=== PATIENT | male | born 1955 | race Caucasian/White ===

== ENCOUNTER 2021-02-14 08:59 | Outpatient (CLI) | payer MEDICARE, OTHER, SELFPAY ==
--- NOTE | ~2021-02-14 | NM_ITS ---
EXAMINATION: NM bone scan whole body DATE: 02/14/2021 13:02 INDICATION: Prostate cancer TECHNIQUE: 25.4 mCi Tc-99m HDP was administered intravenously. Delayed whole-body scintigrams were o btained. COMPARISON: 10/14/2017 FINDINGS: Single focus of relatively intense uptake at the anterior tip of the left sixth rib. Otherwise physio logic distribution of activity in the bones and soft tissues. IMPRESSION: 1. Single focus of relatively intense uptake at the anterior tip of the left sixth rib which is nonsp ecific. Recommend further evaluation with either left rib radiographs or chest CT. Reviewed, dictated and finalized at location A. IMPRESSION: 1. Single focus of relatively intense uptake at the anterior tip of the left si xth rib which is nonspecific. Recommend further evaluation with either left rib radiographs or chest CT.
--- NOTE | ~2021-02-14 | CT_ITS ---
EXAMINATION: CT pelvis w con DATE: 02/14/2021 09:37 INDICATION: Prostate cancer. TECHNIQUE: Computed tomography (CT) of the pelvis was performed with 100 mL Omnipaque 350 intravenous contrast. Automated exposure control and iterative reconstruction technique were employed. The dose- length product was 180.55 mGy-cm. COMPARISON: CT abdomen and pelvis 03/05/2018 FINDINGS: There are no dilated loops of bowel. The prostate is absent. There are no pathologically en larged lymph nodes. There is no free intraperitoneal fluid. There is sclerosis in the femoral heads, right worse than left, consistent with osteonecrosis. There is severe lower lumbar spondylosis. There is a benign bone island in left superior pubic ramus. IMPRESSION: 1. No evidence of metastatic disease. Reviewed, dictated and finalized at location B.
[2021-02-14 09:29] LABS: Estimated Glomerular Filt Rate > 60
== END 2021-02-14 09:00 | disposition home or self-care (01) ==
LOC: ANHIMG 09:08
PROVIDERS: PCP Internal Medicine; Visit Provider Urology
DX: C61 Malignant neoplasm of prostate (principal)
CPT/HCPCS: 72193; 78306; A9561; Q9967

== ENCOUNTER 2021-06-03 14:47 | Outpatient (CLI) | payer MEDICARE, OTHER, SELFPAY ==
[2021-06-03] MEDS: cefTRIAXone 1 GM VIAL IM (15:42)
[2021-06-03] MEDS: LIDOCAINE HCL 1% LOCAL INJ 20 ML VIAL (15:43)
--- NOTE | 2021-06-03 15:53 | PC.NURSE ---
Rocephin 1 gram IM given. Patient tolerated well.
== END 2021-06-03 14:48 | disposition home or self-care (01) ==
LOC: CHSTREATRM 14:58
PROVIDERS: PCP Internal Medicine; Visit Provider Internal Medicine
DX: L03.115 Cellulitis of right lower limb (principal)
CPT/HCPCS: 96372; J0696

== ENCOUNTER 2021-06-04 15:04 | Outpatient (CLI) | payer MEDICARE, OTHER, SELFPAY ==
[2021-06-04] MEDS: LIDOCAINE HCL 1% LOCAL INJ 20 ML VIAL INFILTRATE (15:32)
[2021-06-04] MEDS: cefTRIAXone 1 GM VIAL IM (15:33)
--- NOTE | 2021-06-04 15:35 | PC.NURSE ---
Patient here for Ceftriaxone injection. Medication administered to left buttocks. Patient tolerated well.
== END 2021-06-04 15:05 | disposition home or self-care (01) ==
PROVIDERS: PCP Internal Medicine; Visit Provider Internal Medicine
DX: L03.115 Cellulitis of right lower limb (principal)
CPT/HCPCS: 96372; J0696

== ENCOUNTER 2021-12-24 17:55 | Emergency (ER) | payer MEDICARE, OTHER, SELFPAY ==
--- NOTE | ~2021-12-24 | XR_ITS ---
EXAMINATION: XR shoulder LT min 2V DATE: 12/24/2021 18:40 INDICATION: Left shoulder injury. TECHNIQUE: 4 views of left shoulder were obtained. COMPARISON: None. FINDINGS: There is normal alignment at glenohumeral joint. There is a fracture involving greater tube rosity and surgical neck of proximal left humerus with 3 mm displacement. Glenohumeral joint is terence l. There is severe acromioclavicular joint osteoarthritis. There are changes of anterior fusion proce dure in cervical spine. There is mild chronic anterior wedging of multiple thoracic vertebral bodies. IMPRESSION: 1. One-part fracture of proximal left humerus. 2. Severe osteoarthritis of acromioclavicular joint. Reviewed, dictated and finalized at location E.
--- NOTE | 2021-12-24 18:01 | ED.UPPEXIN ---
HPI - Extremity Injury (Upper) General Chief Complaint: Extremity Injury, Upper Stated Complaint: L arm fall Time Seen by Provider: 12/24/21 18:02 Source: patient Mode of arrival: ambulatory Limitations: no limitations History of Present Illness HPI narrative: patient was on a shed roof and was about to lower himself down he swung his body over the edge of the roof and then lost control falling about 6-7 feet onto his left side. He thought at 1st his knee was hurt but he is walking on it he says it feels fine. Problem is left shoulder is very painful. He denies hitting his head he denies any loss of consciousness. complaint: injury to: left and shoulder Onset (ago): hour(s) (2.5) Other injuries: none Handedness: right Place: home Severity: severe Relieving factors: rest Exacerbating factors: movement of extremity Context: fall Associated symptoms: denies other symptoms Related Data Home Medications Medication Instructions Recorded Confirmed amlodipine 10 mg PO DAILY 12/24/21 12/24/21 cyproheptadine 4 mg PO DAILY 12/24/21 12/24/21 ergocalciferol (vitamin D2) 1,250 mcg PO DAILY 12/24/21 12/24/21 famotidine 40 mg PO DAILY 12/24/21 12/24/21 hydrocodone-acetaminophen 1 tablet PO Q4-6H 12/24/21 12/24/21 leuprolide [Lupron Depot] See Rx Instructions .ROUTE .COMPLEX 12/24/21 12/24/21 Allergies Allergy/AdvReac Type Severity Reaction Status Date / Time codeine Allergy Mild CONSTIPATIO Verified 12/24/21 18:23 N PROPOXYPHENE NAPSYLATE Allergy Severe N/V Uncoded 12/24/21 18:23 MEPERIDINE HCL AdvReac Severe N/V Uncoded 12/24/21 18:23 Review of Systems Review of Systems: All systems reviewed & are unremarkable except as noted in HPI and below Gastrointestinal: Gastrointestinal: Reports nausea PMFSH Past Medical History Medical History (Updated 12/24/21 @ 19:09 by Gaurav Whitt MD) Colles' fracture of left radius, initial encounter for closed fracture Family History Family History Other Family history of cardiovascular disease Family history of malignant neoplasm Hypertension Social History Social History Smoking status: Never smoker Alcohol intake: current Exam Const: General: healthy appearing, no acute distress and alert Nutritional Appearance: well nourished Orientation/consciousness: patient oriented x3 HENMT: Head: normal to inspection Ears: external ears normal Eyes: Conjunctivae: conjunctivae normal Pupils: Equal, round and reactive pupils present EOM: EOMs intact bilaterally Neck: Neck: normal visual inspection Resp: Effort & Inspection: normal respiratory effort Auscultation: clear to auscultation bilaterally Cardio: Rate: regular rate Rhythm: regular rhythm GI: GI Palp: Yes Soft to palpation, No Tenderness to palpation present (GI) and No Guarding due to palpation present (GI) Auscultation: normal bowel sounds Back/Spine/Pelvis: Cervical Spine: cervical ROM normal Thoracic/Lumbar Spine: thoraco-lumbar ROM normal Skin: General skin exam: normal color Rashes: no rashes Neuro: General: patient oriented x3, moves all extremities, no focal motor deficits and CN's II-XI intact bilaterally Speech: normal speech Gait exam (Neuro): Normal gait present Extrem: General: normal exam except as noted and no clubbing, cyanosis or edema Left upper extremity: shoulder/upper arm tenderness of the proximal humerus, swelling of the proximal humerus anteriorly, posteriorly, laterally and medially and abnormal ROM held in an abnormal fashion in ABduction and in internal rotation Psych: Appearance: grossly normal and well kempt Mental Status: mental status grossly normal Affect: normal affect Attitude: cooperative Thought content: Yes Normal thought content present Discharge Plan Discharge Clinical Impression: Fracture of humerus Qualifiers: Encounter type: initial encounter Hu
[2021-12-24 18:14] VITALS: BP 179/86; PULSE 70; RESP 20; TEMP 37.3; O2SAT 99
[2021-12-24] MEDS: HYDROmorphone HCL INJ (*CRX) 2 MG/ML VIAL 1 MG IM (19:06)
[2021-12-24] MEDS: ONDANSETRON HCL ODT 4 MG TABLET PO (19:06)
[2021-12-24 19:23] VITALS: BP 179/86; PULSE 88; RESP 16; TEMP 36.6; O2SAT 99
== END 2021-12-24 19:23 | disposition home or self-care (01) ==
PROVIDERS: Emergency Provider Emergency Medicine; PCP Internal Medicine
DX: S42.295A Other nondisplaced fracture of upper end of left humerus, initial encounter for closed fracture (principal); W17.89XA Other fall from one level to another, initial encounter
CPT/HCPCS: 73030; 96372; 99284; A4565; A9270; J1170

== ENCOUNTER 2022-01-22 15:01 | Outpatient (RCR) | payer MEDICARE, OTHER, SELFPAY ==
--- NOTE | 2022-01-22 15:31 | PTOPEVAL ---
Thank you for referring Mayank Collazo to [facility].? The patient is scheduled to be seen for therapy? __2__x/week for 12 visits. Please review, sign, date and return this plan of care BEATRIZ. I agree with and certify that the following plan of care is medically necessary. Referring Physician Date Admitting Provider: Attending Provider: GEETHA PRATT Referring Provider: *PT Outpatient Evaluation Start: 01/22/22 15:07 Freq: Status: Active Protocol: Document 01/22/22 15:07 ABIOLA (Rec: 01/22/22 15:28 [email or web address] [id number]) Therapy Assessment Status Assessment Status Assessment Status Evaluation Outpatient Past Medical History Cardiovascular History Hx Hypertension Yes Gastrointestinal History Hx Gastroesophageal Reflux Disease Yes Other History Hx Cancer Yes: PROSTATE Evaluation Information Problem Diagnosis left proximal humerus fx Onset 12/24/21 Subjective Information Pt. reports that he fell at Query Text:As Reported By Patient/ the beginning of December. Pt. Family reports that he has been in a sling since the fall. He reports that his doctor informed him that he could begin to take his arm out of the sling next Saturday. He reports that pain is mild at rest but increases significantly with movement. He reports that he has been doing described pendulum exercises at home. He reports that he has trouble sleeping due to pain with moving the arm. He reports that his goal is to decrease his pain. Prior Level of Function Activity Level (Last 3 Months) Occupation retired Hand Dominance Right Activity of Daily Living Ability Independent Indoor/Home Mobility Independent Community Mobility Independent Stairs Ability Independent Functional Cognition (Planning, Shopping Independent , Taking Medications) Cooking Yes Cleaning Yes Laundry Yes Shopping Yes Driving Yes Pain Assessment Timing of Pain Assessment Timing of Pain Assessment Post-Treatment Pain Scale Pain Scale Used Numeric (1 - 10) Self Report Pain Assessment Left Shoulder(s) Reported Pain Level 2 Pain Frequency
--- NOTE | 2022-02-28 15:23 | PTOPEVAL ---
Thank you for referring Mayank Collazo to [facility].? The patient is scheduled to be seen for therapy? __1__x/week for __6_ visits. Please review, sign, date and return this plan of care BEATRIZ. I agree with and certify that the following plan of care is medically necessary. Referring Physician Date Admitting Provider: Attending Provider: GEETHA PRATT Referring Provider: *PT Outpatient Evaluation Start: 01/22/22 15:07 Freq: Status: Active Protocol: Document 02/28/22 14:22 ABIOLA (Rec: 02/28/22 15:22 ABIOLA [id number]) Therapy Assessment Status Assessment Status Assessment Status Progress Outpatient Past Medical History Cardiovascular History Hx Hypertension Yes Gastrointestinal History Hx Gastroesophageal Reflux Disease Yes Other History Hx Cancer Yes: PROSTATE Evaluation Information Problem Diagnosis left proximal humerus fx Onset 12/24/21 Subjective Information Pt. reports that he is doing Query Text:As Reported By Patient/ better, but is still very weak Family , espeically with overhead reaching. He reports that he is still limited to 5# restriction from his doctor. He states that he cannot lift anything of significant weight with the rleft arm. He reports that he would like to continue in order to improve strength. Pain Assessment Timing of Pain Assessment Timing of Pain Assessment Pre-Treatment Pain Scale Pain Scale Used Numeric (1 - 10) Self Report Pain Assessment Left Shoulder(s) Reported Pain Level 2 Pain Score Pain Score 2: Self Report Interventions Used Interventions Used By Clinicians Electrical Stimulation, Exercise,Heat,Manual Therapy Techniques Upper Extremity Range of Motion General Upper Extremity Range of Motion Gross Upper Extremity Range of Motion PROM at the left shoulder: Comments -flexion 140 degrees -ER 65 degrees -IR 40 degrees AROM at the left shoulder: -flexion 94 degrees Upper Extremity Muscle Strength Testing General Upper Extremity Strength Gross Upper Extremity Strength Comments -left shoulder flexion 3/5 -left shoulder ER 3+/5 -left shoulder IR 3+/5 General Exercise General Exercises Exercise Description -finger ladder flexion and Query Text:Record Sets, Reps, abdu
== END 2022-04-17 18:43 | disposition home or self-care (01) ==
LOC: CHSPT 15:01
PROVIDERS: PCP Internal Medicine
DX: S42.295D Other nondisplaced fracture of upper end of left humerus, subsequent encounter for fracture with routine healing (principal)
CPT/HCPCS: 97014; 97110; 97140; 97161; G0283

== ENCOUNTER 2022-11-01 01:30 | Day surgery (SDC) | payer MEDICARE, OTHER, SELFPAY ==
[2022-10-18 14:53] VITALS: BMI 23.1
[2022-11-01 06:50] VITALS: BP 159/73; PULSE 71; RESP 16; TEMP 36.4; O2SAT 100; BMI 22.5
[2022-11-01] MEDS: LACTATED RINGERS 1,000 ML 150 ML IV CONT (06:58)
--- NOTE | 2022-11-01 07:42 | WPDANESEPPF ---
Anes - Initial Pre Proc Eval Procedure: Operation Date: 11/01/22 08:00 Proposed Procedures p Screening Colonoscopy - Franc Don DO Date/Time: 11/01/22 07:42 Surgeon: Franc Don DO Pre Op Diagnosis: hx colon polyps Patient Data Age: 67 Gender: M Height: 1.83 m Weight: 75.3 kg Last Vital Signs Temp 36.4 C 11/01/22 06:50 Pulse 71 11/01/22 06:50 Resp 16 11/01/22 06:50 BP 159/73 H 11/01/22 06:50 Pulse Ox 100 11/01/22 06:50 O2 Del Method Room Air 11/01/22 06:50 Allergies Allergy/AdvReac Type Severity Reaction Status Date / Time codeine Allergy Mild CONSTIPATIO Verified 11/01/22 06:48 N propoxyphene Allergy Nausea and Verified 11/01/22 06:48 Vomiting meperidine AdvReac Nausea and Verified 11/01/22 06:48 Vomiting Home Medications Medication Instructions Recorded Confirmed Type amlodipine 10 mg tablet 10 mg PO DAILY 12/24/21 11/01/22 History ergocalciferol (vitamin D2) 1,250 1,250 mcg PO DAILY 12/24/21 11/01/22 History mcg (50,000 unit) capsule famotidine 40 mg tablet 40 mg PO BID 12/24/21 11/01/22 History hydrocodone 7.5 mg-acetaminophen 1 tablet PO Q4-6H PRN Pain 12/24/21 11/01/22 History 325 mg tablet leuprolide 3.75 mg intramuscular See Rx Instructions .Route .COMPLEX 12/24/21 11/01/22 History darolutamide 300 mg tablet (Nubeqa) 600 mg PO BID 10/18/22 11/01/22 History pantoprazole 40 mg tablet,delayed 40 mg PO BID 10/18/22 11/01/22 History release prochlorperazine maleate 10 mg 10 mg PO Q6H PRN Nausea 10/18/22 11/01/22 History tablet Patient hx anesthesia problems: post op nausea/vomiting Family hx anesthesia problems: other (slow to awaken) Results Review: All pre-operative results and documents have been reviewed as part of the pre-operative evaluation. [facility] Past Medical History Medical History Colles' fracture of left radius, initial encounter for closed fracture Family History Family History Other Family history of cardiovascular disease Family history of malignant neoplasm Hypertension Social History Social History Smoking status: Never smoker Alcohol intake: current Substance use: current Substance use type: marijuana Other substance usage details: Daily Living arrangements: with family Spiritual care concerns: No Anes - Eval Final PreProcedure Day of Procedure 11/01/22 07:42 Patient weight: normal Heart: regular rate and rhythm Lungs: decreased breath sounds Airway: Mallampati scale class II Neurological: alert and oriented Last oral intake: >/= 8 hours ASA classification: III Emergent: no Anesthetic plan: proceed Anesthesia type and monitoring: general GIVS and standard monitoring Results Review: All pre-operative results and documents have been reviewed as part of the pre-operative evaluation. Informed Consent: The patient's anesthetic plan and its attendant risks and benefits were discussed with the patient/family/POA. Questions were solicited and answers provided to the satisfaction of the patient/family/POA.
[2022-11-01] MEDS: ONDANSETRON INJ 4 MG/2 ML VIAL IV PUSH (07:44)
--- NOTE | 2022-11-01 08:10 | PM.IMHP ---
H&P: HPI History of Present Illness Date/Time: 11/01/22 08:10 Chief Complaint: History of colon polyps Narrative: this is a 67-year-old man who presents for colonoscopy. His last colonoscopy was 5 years ago and polyps were removed at that time. He denies any hematochezia or melena. He does have a history of prostate cancer. He denies any family history of colon cancer. Review of Systems Review of Systems: All systems reviewed & are unremarkable except as noted in HPI and below Constitutional: Constitutional: Denies chills, Denies fever(s), Denies headache(s) and Denies weight loss Eyes: Eyes: Denies change in vision ENT: Denies dizziness, Denies headache(s), Denies neck mass and Denies throat swelling Cardiovascular: Cardiovascular: Denies chest pain, Denies lightheadedness and Denies dyspnea Respiratory: Respiratory: Denies cough, Denies dyspnea and Denies wheezing Gastrointestinal: Gastrointestinal: Denies abdominal pain, Denies change in bowel habits, Denies nausea and Denies vomiting Genitourinary: Genitourinary: Denies hematuria and Denies dysuria Musculoskeletal: Musculoskeletal: Reports as per HPI Integumentary/Breasts: Skin/Breast: Reports as per HPI Neurologic: Denies dizziness and Denies headache(s) Allergic/Immunologic: Allergic/Immunologic: Denies throat swelling and Denies wheezing PMF Past Medical History Medical History Colles' fracture of left radius, initial encounter for closed fracture Family History Family History Other Family history of cardiovascular disease Family history of malignant neoplasm Hypertension Social History Social History Smoking status: Never smoker Alcohol intake: current Substance use: current Substance use type: marijuana Other substance usage details: Daily Living arrangements: with family Spiritual care concerns: No Meds Home Medications and Allergies Home Medications Medication Instructions Recorded Confirmed Type amlodipine 10 mg tablet 10 mg PO DAILY 12/24/21 11/01/22 History ergocalciferol (vitamin D2) 1,250 1,250 mcg PO DAILY 12/24/21 11/01/22 History mcg (50,000 unit) capsule famotidine 40 mg tablet 40 mg PO BID 12/24/21 11/01/22 History hydrocodone 7.5 mg-acetaminophen 1 tablet PO Q4-6H PRN Pain 12/24/21 11/01/22 History 325 mg tablet leuprolide 3.75 mg intramuscular See Rx Instructions .Route .COMPLEX 12/24/21 11/01/22 History darolutamide 300 mg tablet (Nubeqa) 600 mg PO BID 10/18/22 11/01/22 History pantoprazole 40 mg tablet,delayed 40 mg PO BID 10/18/22 11/01/22 History release prochlorperazine maleate 10 mg 10 mg PO Q6H PRN Nausea 10/18/22 11/01/22 History tablet Allergies Allergy/AdvReac Type Severity Reaction Status Date / Time codeine Allergy Mild CONSTIPATIO Verified 11/01/22 06:48 N propoxyphene Allergy Nausea and Verified 11/01/22 06:48 Vomiting meperidine AdvReac Nausea and Verified 11/01/22 06:48 Vomiting Vital Signs Vital Signs - 24 hr 11/01/22 06:50 Temperature 36.4 C Pulse Rate 71 Respiratory Rate 16 Blood Pressure 159/73 H Pulse Oximetry 100 Oxygen Delivery Room Air Exam Const: General: no acute distress and alert Orientation/consciousness: patient oriented x3 HENMT: Head: normocephalic and atraumatic Ears: hearing grossly normal bilaterally Face/Nose/Sinus: Normal nares present Mouth: Yes Normal oral and palatal mucosa present Eyes: Periorbital: periorbital findings normal Sclera: sclerae normal EOM: EOMs intact bilaterally Neck: Neck: normal visual inspection, no lymphadenopathy and trachea midline Chest: Chest palpation & inspection: normal inspection of the chest Resp: Effort & Inspection: normal respiratory effort Auscultation: clear to auscultation bilaterally
[2022-11-01 08:42] VITALS: BP 122/70; PULSE 70; RESP 22; O2SAT 100
[2022-11-01 08:52] VITALS: BP 128/79; PULSE 65; RESP 21; O2SAT 100
[2022-11-01 09:02] VITALS: BP 151/67; PULSE 61; RESP 21; O2SAT 100
== END 2022-11-01 09:12 | disposition home or self-care (01) ==
PROVIDERS: PCP Internal Medicine; Visit Provider Surgery
PROC: 0DJD8ZZ Inspection of Lower Intestinal Tract, Via Natural or Artificial Opening Endoscopic (ICD-10-PCS; CPT 45378; principal; 2022-11-01 08:00)
DX: Z12.11 Encounter for screening for malignant neoplasm of colon (principal); Z86.010 Personal history of colon polyps; F12.90 Cannabis use, unspecified, uncomplicated; Z85.46 Personal history of malignant neoplasm of prostate
CPT/HCPCS: G0105; J2405; J2704; J7120

== ENCOUNTER 2025-02-23 16:56 | Emergency (ER) | payer MEDICARE, OTHER, SELFPAY ==
[2025-02-23] VITALS (23 sets, daily range): BP systolic 121–173; BP diastolic 72–87; PULSE 60–80; RESP 16–25; TEMP 36.4–37.1; O2SAT 96–100
--- OUTSIDE RECORDS SUMMARY | 2025-02-23 17:06 | XMS_ITS ---
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 Closed displaced fracture of greater tuberosity of left humerus 12/29/2021 Vitamin D deficiency, unspecified 08/22/2021 Prostate cancer 03/26/2021 Bilateral hip pain 04/11/2018 Current Treatment and Therapy Plans [id number] - [facility] - - [id number] PART 1B DOSE EXPANSION ARM Cohort 11&13(Q3W x 4 induction cycles, Q6W maintenance) - ARX 517* Plan Start Date:10/07/2024 Plan Provider:Kemal Guillaume MD Linked Problems Prostate cancer (HCC)Seconda ry and unspecified malignant neoplasm of intrapelvic lymph nodes (HCC) Treatment Medications Current Day (Day 2 2, Cycle 6 - Planned for 03/03/2025) Next Day (Day 1, Cycle 7 - Planned for 03/24/2025) INV-[facility] () [id number] IVPB in 250 mLINV-[facility] brimonidine 0.2 % ([id number])INV- [facility] Systane Complete PF ()INV- [facility] Systane Nighttime Lubricant () No medications scheduled. 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 Past Treatment and Therapy Plans Oncology Chemotherapy Treatment Plan Name Start Date Discontinue Date Treatment Medications Discontinue Reason Plan Provider Cycles Sipuleucel-T 14 Day Cycles - Prostate 01/24/2024 05/05/2024 [id number] actated ringers (PROVENGE) >50 million cell/250 mL Therapy Complete Kemal Guillaume MD 3 of 3 cycles started Apalutamide 240mg daily 28 day cycles 1 09/10/2022 No medications scheduled. Progression Kemal Guillaume MD 3 of 6 cycles started Lifetime Dose Tracking * Chemical Lifetime Dose Automatic Entry Manual Entr y DLP 2,062 mGycm 2,062 mGycm 0 mGycm
--- OUTSIDE RECORDS SUMMARY | 2025-02-23 17:06 | XMS_ITS | Encounter Summary ---
Author Organization [facility] Address [address] [place] [address] Phone Care Team Providers Care Windmill Technician Name Role Phone Arvind Castellanos MD Primary Care Provider [phone] Patrick Perez MD Unavailable [phone] Encounter Details Date Type Department Care Team (Latest Contact Info) Description 06/03/2024 Orders Only [facility] Scanning, Provider Social History Tobacco Use Types Packs/Day Years Used Date Smoking Tobacco: Never Smokeless Tobacco: Never Alcohol Use Standard Drinks/Week Comments No 0 (1 standard drink = 0.6 oz pur e alcohol) Sex and Gender Information Value Date Recorded Sex Assigned at Not on file 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 Gender Identity Not on file Sexual Orientation Not on file documented as of this encounter Plan of Treatment Not on file documented as of this encounter Procedures Procedure Name Priority Date/Time Associated Diagnosis Comments SCAN - LABS 06/03/2024 documented in this encounter Results * SCAN - LABS (06/03/2024) us Provider Scanning Final Result documented in this encounter Visit Diagnoses Not on filedocumented in this encounter Care Teams Windmill Technician Relationship Specialty Start Date End Date Arvind Castellanos MD PCP - General 12/24/17 Patrick Perez MD [address] [address] Urology 07/27/21 documented as of this encounter
--- OUTSIDE RECORDS SUMMARY | 2025-02-23 17:06 | XMS_ITS | Encounter Summary ---
Author Organization [facility] Address [address] [place] [address] Phone Care Team Providers Care Pipe Organ Installer Name Role Phone Arvind Castellanos MD Primary Care Provider [phone] Patrick Perez MD Unavailable [phone] Encounter Details Date Type Department Care Team (Late st Contact Info) Description 02/23/2025 Telephone [facility] Oncology 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 Collazo after receiving message Mr. Collazo was experiencing orthostatic BP w/a 30 pt drop and falling. Advised to go to ED. Stated she would take him to the local ED in [place], [place]. Advised to let them know he was receiving treatment for cancer. Could just need IVF's, but need to find out what's going on. Mrs. Collazo understood and agreed with the plan. Team updated. documented in this encounter Plan of Treatment Not on file documented as of this encounter Visit Diagnoses Not on filedocumented in this encounter Care Teams Pipe Organ Installer Relationship Specialty Start Date End Date Arvind Castellanos MD PCP - General 12/24/17 Patrick Perez MD [id number] [address] Urology 07/27/21 documented as of this encounter
--- OUTSIDE RECORDS SUMMARY | 2025-02-23 17:07 | XMS_ITS | Clinical Summary ---
Author Organization [facility] Address [address] [place] [address] Care Team Providers Care Tanker Service Attendant Name Role Phone Unavailable Primary Care Provider Unavailabl e Source Comments [facility] your[facility],non-owned Affiliates and Associated Physician Practices is amultiple site organization consisting of ambulatory clinics and hospital sitesin [place], [place], [place] and [place]. This disclosure is being madepursuant to the Care Everywhere program and may not contain all information available regarding this patient. 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 Gender Identity Not on file Sexual Orientation Not on file Plan of Treatment Health Maintenance Due Date Last Done Comments COLOGUARD (AGES 45-75) - COL ON CA SCREENING 1955 COLON MONITORING 1955 COLONOSCOPY - COLON CA SCREENING 1955 CT COLONOGRAPHY - COLON CA SCREENING 1955 Colorectal Cancer Screening 1955 FIT - COLON CA SCREENING 1955 FLEX SIG - COLON CA SCREENING 1955 LIPID TESTING 1955 HEPATITIS C SCREENING 04/25/1973 DTAP/TDAP/TD VACCINES (1 - Tdap) 1974 PNEUMOCOCCAL VACCINE 50+ (1 of 1 - PCV) 2005 ZOSTER VACCINE (1 of 2) 2005 COVID-19 VACCINE ( - 2023-2 5 season) 2024 DEPRESSION SCREENING 09/23/2024 INFLUENZA VACCINE (Season Ended) 2025 Respiratory Syncytial Virus (RSV) Vaccine Pt: or over 60 yrs (1 - 1-dose 75+ series) 2030 HEPATITIS B VACCINE Aged Out No longe r eligible based on patient's age to complete this topic HIB VACCINE Aged Out No longer eligi ble based on patient's age to complete this topic HPV VACCINE Aged Out No longer eligi ble based on patient's age to complete this topic MENINGOCOCCAL (Group B) VACC INE SHARED DECISION-MAKING Aged Out No longer eligibl e based on patient's age to complete this topic MENINGOCOCCAL GROUPS A/C/Y/W VACCINE Aged Out No longer eligible b ased on patient's age to complete this topic
--- OUTSIDE RECORDS SUMMARY | 2025-02-23 17:07 | XMS_ITS | Encounter Summary ---
Author Organization [facility] Address [address] [place] [address] Phone Care Team Providers Care Railroad Track Repair Supervisor Name Role Phone Arvind Castellanos MD Primary Care Provider [phone] Patrick Perez MD Unavailable [phone] Encounter Details Date Type Department Care Team (Late st Contact Info) Description 02/01/2023 Telephone [facility] Oncology [address] [place] [id number] Sandra Davila, B.A. 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
--- OUTSIDE RECORDS SUMMARY | 2025-02-23 17:07 | XMS_ITS | Referral Summary ---
Author Organization [facility] Address [address] [place] [address] Care Team Providers Care Superannuation Clerk Name Role Phone Arvind Castellanos MD Primary Care Provider [phone] Patrick Perez MD Unavailable [phone] Encounters Date Type Department Care Team Description 02/23/2025 Telephone [facility] Oncology [address] [place] [address] [address] [place] [phone] Sharmin De La Vega RN 02/12/2025 10:45 AM CDT Office Visit [facility] Ophthalmology [address] [facility] [address] [place] [address] Puma Galindo MD Research exam (Primary Dx) 02/10/2025 10:20 AM CDT Office Visit [facility] Oncology [address] [place] [address] [address] [place] [address] Gladis Savage NP 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); Prostate cancer (HCC) 02/10/2025 10:45 AM CDT Infusion [facility] at [address] [place] [address] 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); Prostate cancer (HCC) 02/10/2025 9:15 AM CDT Lab [address] [place] [address] Prostate cancer (HCC); 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) 02/08/2025 8:09 AM CDT - 02/08/2025 11:59 PM CDT Hospital Encounter [facility] [address] [place], [place] [address] Prostate cancer (HCC); 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); 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) Discharge Disposition: Discharge to home or self care 02/08/2025 8:09 AM CDT - 02/08/2025 11:59 PM CDT Hospital Encounter [facility] [address] [place] [address] Discharge Disposition: Discharge to home or self care 02/08/2025 8:08 AM CDT - 02/08/2025 11:59 PM CDT Hospital Encounter [facility] [address], [place] [address] Prostate cancer (HCC); 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); 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) Discharge Disposition: Discharge to home or self care 02/01/2025 10:58 AM CDT - 02/01/2025 11:59 PM CDT Hospital Encounter [facility] [address] [place] [address] Discharge Disposition: Discharge to home or self care 02/01/2025 10:58 AM CDT - 02/01/2025 11:59 PM CDT Hospital Encounter [facility] ([facility]) [facility] [place] [address] Prostate cancer (HCC); 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); 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) Discharge Disposition: Discharge to home or self care 01/20/2025 Orders Only [facility] at [facility] [address] [facility] [place] [address] Law, Radha Diaze, [facility] 01/20/2025 8:45 AM CDT Office Visit [facility] Oncology [address] [place] [address] [address] [place] [phone] Kemal Guillaume MD 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); Prostate cancer (HCC) 01/20/2025 7:45 AM CDT Lab [facility] at [address] [place] [phone] Prostate cancer (HCC); 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) 01/12/2025 Orders Only [facility] [address] [place] [address] [address] [place] [phone] Sharmin De La Vega, RN Prostate cancer (HCC) (Primary Dx); 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); 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) 01/04/2025 Orders Only [facility] [address] [place] [phone] Paulette Luna, [facility] 12/30/2024 11:30 AM CDT Infusion [facility] - Infusion [address] [facility] Floor [address] [place] [address] 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); Prostate cancer (HCC) 12/30/2024 8:45 AM CDT Office Visit [facility] [address] [place] [address] [address] [place] [address] Kemal Guillaume MD 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); Prostate cancer (HCC) 12/30/2024 7:45 AM CDT Lab [address] [place] [phone] Prostate cancer (HCC); 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) 12/16/2024 Orders Only [facility] On[facility] [address] [facility] [address] [place] [address] Kemal Guillaume MD 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); Prostate cancer (HCC) 12/09/2024 10:30 AM CDT Infusion [facility] - Infusion [address] [facility] Floor [address] [place] [address] 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); Prostate cancer (HCC) 12/09/2024 8:45 AM CDT Office Visit [facility] Oncology [address] [facility] [address] [place] [address] Kemal Guillaume MD 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); Prostate cancer (HCC) 12/09/2024 7:45 AM CDT Lab [facility] at [facility] [address] [facility] [place] [address] Prostate cancer (HCC); 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) 12/04/2024 9:37 AM CDT - 12/04/2024 11:59 PM CDT Hospital Encounter [facility] [address] [place] [address] Kemal Guillaume MD Prostate cancer (HCC) Discharge Disposition: Discharge to home or self care 12/04/2024 9:36 AM CDT - 12/04/2024 11:59 PM CDT Hospital Encounter [facility] [address] [place] [address] Discharge Disposition: Discharge to home or self care 12/04/2024 9:36 AM CDT - 12/04/2024 11:59 PM CDT Hospital Encounter [facility] [address] [place] [address] Prostate cancer (HCC) Discharge Disposition: Discharge to home or self care from Last 3 Months Allergies Active Allergy Reactions Criticality Noted Date Comments Meperidine Vomiting High 04/11/2018 Medications HYDROcodone-kari taminophen (NORCO) 7.5-325 mg per tabletIndicatio ns:Pain 0 03/27/20 18 Active cholecalciferol (cholecalcifero l) 25 mcg (1,000 unit) tablet Take 1 tablet (1,000 Units total) by mouth daily 30 tablet 11 07/26/20 21 Active ondansetron (ZOFRAN) 8 mg tablet Take 1 tablet (8 mg total) by mouth every 8 (eight) hours as needed for nausea or vomiting 10 tablet 02/03/20 24 Active LORazepam (ATIVAN) 0.5 mg tablet During leukopheresis: Take 0.5mg (1 tablet) for n/v. If n/v not resolved after 1 hr, take a second dose of 0.5mg (1 tablet) 4 tablet 02/03/20 24 Active ergocalciferol (VITAMIN D) 50,000 unit capsule Take 1 capsule (50,000 Units total) by mouth once a week 4 capsule 2 05/06/20 24 Active mirtazapine (REMERON) 15 mg tablet TAKE 1 TABLET BY MOUTH EVERY DAY AT NIGHT 90 tablet 3 07/31/20 24 Active INV-Pay with a [facility] brimonidine 0.2 % (/AR [id number]) 0.2 % ophthalmic solution Administer 1 drop into both eyes as directed 1 drop to each eye 10 minutes prior to each infusion. Remember to bring bottle to each infusion. Active [facility] Systane Complete PF (/AR [id number]) drops eye drops Administer 1 drop into both eyes every 3 (three) hours Instill one drop into each eye at a minimum of 8 times each day. Active [facility] Systane Nighttime Lubricant (/AR [id number]) 94-3 % ointment eye ointment Apply 1 Application to affected eye(s) nightly Pull down the lower lid of each eye and apply a small amount (one-fourth inch) of ointment to the inside of eyelid. Active amLODIPine (NORVASC) 5 mg tablet Take 1 tablet (5 mg total) by mouth daily 08/31/[address] (PROTONIX) 40 mg EC tablet TAKE 1 TABLET BY MOUTH TWICE A DAY 180 tablet 3 11/27/19 25 Active prochlorperazin e (COMPAZINE) 10 mg tablet TAKE 1 TABLET BY MOUTH EVERY 6 HOURS NEEDED FOR NAUSEA 120 tablet 1 01/28/20 25 Active prochlorperazin e (COMPAZINE) 10 mg tablet TAKE 1 TABLET BY MOUTH EVERY 6 HOURS NEEDED FOR NAUSEA 120 tablet 1 09/24/19 25 025 Discontinued Active Problems Problem Noted Date Diagnosed Date 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 Closed displaced fracture of greater tuberosity of left humerus 12/29/2021 Vitamin D deficiency, unspecified 08/22/2021 Prostate cancer 03/26/2021 Bilateral hip pain 04/11/2018 Immunizations Immunization Administration Dates Next Due Tdap 08/12/2014 Social History Tobacco Use Types Packs/Day Years Used Date Smoking Tobacco: Never Smokeless Tobacco: Never Alcohol Use Standard Drinks/Week Comments No 0 (1 standard drink = 0.6 oz pur e alcohol) Sex and Gender Information Value Date Recorded Sex Assigned at Not on file 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 Gender Identity Not on file Sexual Orientation Not on file Last Filed Vital Signs Vital Sign Reading Time Taken Comments Blood Pressure 150/74 02/10/2025 9:45 AM CDT Pulse 59 02/10/2025 9:45 AM CDT Temperature 36.7 C (98.1 F) 02/10/2025 9:45 AM CDT Respiratory Rate 16 02/10/2025 9:45 AM CDT Oxygen Saturation 98% 02/10/2025 9:45 AM CDT Inhaled Oxygen Concentration - - Weight 60.2 kg (132 lb 11.5 oz) 02/10/2025 9:29 AM CDT Height 177.3 cm (5' 9.8) 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 Body Mass Index 19.15 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 Plan of Treatment Not on file Procedures Procedure Name Priority Date/Time Associated Diagnosis Comments URINALYSIS AND REFLEX TO MICROSCOPIC AND CULTURE STAT 02/10/2025 7:45 AM CDT Prostate cancer (HCC) 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) EGFR STAT 02/10/2025 7:40 AM CDT Prostate cancer (HCC) 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) DIFFERENTIAL AUTO STAT 02/10/2025 7:4 0 AM CDT Prostate cancer (HCC) 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) CBC WITH AUTO DIFFERENTIAL STAT 02/10/2025 7:40 AM CDT Prostate cancer (HCC) 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) COMPREHENSIVE METABOLIC PANEL STAT 02/10/2025 7:40 AM CDT Prostate cancer (HCC) 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) PHOSPHORUS STAT 02/10/2025 7:40 AM CDT Prostate cancer (HCC) 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) URIC ACID STAT 02/10/2025 7:40 AM CDT Prostate cancer (HCC) 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) GAMMA GT STAT 02/10/2025 7:40 AM CDT Prostate cancer (HCC) 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) CREATINE KINASE (CK), TOTAL STAT 02/10/2025 7:40 AM CDT Prostate cancer (HCC) 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) TRIGLYCERIDES STAT 02/10/2025 7:40 AM CDT Prostate cancer (HCC) 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) LACTATE DEHYDROGENASE Routine 02/10/2025 7:40 AM CDT Prostate cancer (HCC) 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) PSA DIAGNOSTIC Routine 02/10/2025 7:40 AM CDT Prostate cancer (HCC) 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) NM BONE IMAGING WHOLE BODY Schedule Routine, Read Routine (OP Routine) 02/08/2025 10:44 AM CDT Prostate cancer (HCC) 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) CT CHEST ABDOMEN PELVIS W CONTRAST Schedule Routine, Read Routine (OP Routine) 02/08/2025 8:20 AM CDT Prostate cancer (HCC) 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) PET/CT PROSTATE CANCER PSMA SKULL TO THIGH Schedule BEATRIZ, Read BEATRIZ (Appt Today, Awaiting Results) 02/01/2025 2:28 PM CDT Prostate cancer (HCC) 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) EGFR STAT 01/20/2025 7:43 AM CDT Prostate cancer (HCC) 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) DIFFERENTIAL AUTO STAT 01/20/2025 7:4 3 AM CDT Prostate cancer (HCC) 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) CBC WITH AUTO DIFFERENTIAL STAT 01/20/2025 7:43 AM CDT Prostate cancer (HCC) 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) COMPREHENSIVE METABOLIC PANEL STAT 01/20/2025 7:43 AM CDT Prostate cancer (HCC) 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) PHOSPHORUS STAT 01/20/2025 7:43 AM CDT Prostate cancer (HCC) 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) URIC ACID STAT 01/20/2025 7:43 AM CDT Prostate cancer (HCC) 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) GAMMA GT STAT 01/20/2025 7:43 AM CDT Prostate cancer (HCC) 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) CREATINE KINASE (CK), TOTAL STAT 01/20/2025 7:43 AM CDT Prostate cancer (HCC) 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) TRIGLYCERIDES STAT 01/20/2025 7:43 AM CDT Prostate cancer (HCC) 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) LACTATE DEHYDROGENASE Routine 01/20/2025 7:43 AM CDT Prostate cancer (HCC) 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) PSA DIAGNOSTIC Routine 01/20/2025 7:43 AM CDT Prostate cancer (HCC) 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) URINALYSIS AND REFLEX TO MICROSCOPIC AND CULTURE STAT 01/20/2025 7:37 AM CDT Prostate cancer (HCC) 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) URINALYSIS, MICROSCOPIC ONLY STAT 12/30/2024 7:40 AM CDT Prostate cancer (HCC) 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) URINALYSIS AND REFLEX TO MICROSCOPIC AND CULTURE STAT 12/30/2024 7:40 AM CDT Prostate cancer (HCC) 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) EGFR STAT 12/30/2024 7:35 AM CDT Prostate cancer (HCC) 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) DIFFERENTIAL AUTO STAT 12/30/2024 7:3 5 AM CDT Prostate cancer (HCC) 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) CBC WITH AUTO DIFFERENTIAL STAT 12/30/2024 7:35 AM CDT Prostate cancer (HCC) 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) COMPREHENSIVE METABOLIC PANEL STAT 12/30/2024 7:35 AM CDT Prostate cancer (HCC) 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) PHOSPHORUS STAT 12/30/2024 7:35 AM CDT Prostate cancer (HCC) 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) URIC ACID STAT 12/30/2024 7:35 AM CDT Prostate cancer (HCC) 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) GAMMA GT STAT 12/30/2024 7:35 AM CDT Prostate cancer (HCC) 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) CREATINE KINASE (CK), TOTAL STAT 12/30/2024 7:35 AM CDT Prostate cancer (HCC) 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) TRIGLYCERIDES STAT 12/30/2024 7:35 AM CDT Prostate cancer (HCC) 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) LACTATE DEHYDROGENASE Routine 12/30/2024 7:35 AM CDT Prostate cancer (HCC) 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) PSA DIAGNOSTIC Routine 12/30/2024 7:35 AM CDT Prostate cancer (HCC) 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) URINALYSIS, MICROSCOPIC ONLY STAT 12/09/2024 7:45 AM CDT Prostate cancer (HCC) 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) URINALYSIS AND REFLEX TO MICROSCOPIC AND CULTURE STAT 12/09/2024 7:45 AM CDT Prostate cancer (HCC) 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) EGFR STAT 12/09/2024 7:33 AM CDT Prostate cancer (HCC) 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) DIFFERENTIAL AUTO STAT 12/09/2024 7:3 3 AM CDT Prostate cancer (HCC) 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) CBC WITH AUTO DIFFERENTIAL STAT 12/09/2024 7:33 AM CDT Prostate cancer (HCC) 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) COMPREHENSIVE METABOLIC PANEL STAT 12/09/2024 7:33 AM CDT Prostate cancer (HCC) 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) PHOSPHORUS STAT 12/09/2024 7:33 AM CDT Prostate cancer (HCC) 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) URIC ACID STAT 12/09/2024 7:33 AM CDT Prostate cancer (HCC) 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) GAMMA GT STAT 12/09/2024 7:33 AM CDT Prostate cancer (HCC) 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) CREATINE KINASE (CK), TOTAL STAT 12/09/2024 7:33 AM CDT Prostate cancer (HCC) 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) TRIGLYCERIDES STAT 12/09/2024 7:33 AM CDT Prostate cancer (HCC) 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) LACTATE DEHYDROGENASE Routine 12/09/2024 7:33 AM CDT Prostate cancer (HCC) 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) PSA DIAGNOSTIC Routine 12/09/2024 7:33 AM CDT Prostate cancer (HCC) 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) NM BONE IMAGING WHOLE BODY Schedule Routine, Read Routine (OP Routine) 12/04/2024 12:46 PM CDT Prostate cancer (HCC) CT CHEST ABDOMEN PELVIS W CONTRAST Schedule Routine, Read Routine (OP Routine) 12/04/2024 10:01 AM CDT Prostate cancer (HCC) from Last 3 Months Results * Urinalysis reflex to microscopic and culture Urine (02/10/2025 7:45 AM CDT) Color, ur Yellow Yellow Comment:Testing performed by : [facility], [address], [place] [address] Clarity, ur Clear Clear CERNICHOLE BJJuliusCH Comment:Testing performed by : [facility], [address], [place] [address] Specific gravity, ur 1.027 1.003 - 1.030 GORAN BJWCH Comment:Testing performed by : [facility], [address], [place] [address] pH, urine 5.5 CERNER BJWCH Comment: Interpretive Data U rine pH is affected by diet, medications, systemic acid-base disturbances, and renal tubular function. pH may affect urinary stone formation. For example, urine pH below 6.0 may help reduce the tendency for calcium phosphate stones and pH greater than 6.0 may reduce the tendency for uric acid stone formation. Source: fruux Current Interpretive Data was last revised on 2017 Testing performed by: [facility], [address], [place] [address] Protein, ur ql Trace Negative CERNER BJWCH Comment:Testing performed by : [facility], [address], [place] [address] Glucose, ur ql Negative Negative CERNER BJWCH Comment:Testing performed by : [facility], [address], [place] [address] Ketones, ur Negative Negative CERNER BJWCH Comment:Testing performed by : [facility], [address], [place] [address] Bilirubin, ur Negative Negative CERNER BJWCH Comment:Testing performed by : [facility], [address], [place] [address] Blood, ur Negative Negative CERNER BJWCH Comment:Testing performed by : [facility], [address], [place] [address] Urobilinogen, ur <2.0 <2.0 mg/dL CERNER BJWCH Comment:Testing performed by : [facility], [address], [place] [address] Nitrite, ur Negative Negative CERNER BJWCH Comment:Testing performed by : [facility], [address], [place] [address] Leukocyte esterase, ur Negative Negative CERNER BJWCH Comment:Testing performed by : [facility], [address], [place] [address] UA reflex comment Reflex conditions for microscopic UA and culture not met. CERNER BJWCH Comment:Testing performed by : [facility], [address], [place] [address] Urine 02/10/2025 7:45 AM CDT 02/10/2025 9:46 AM CDT us Gladis Savage NP LAB MICROBIOLOGY - [facility] ORDERABLES Final Result GORAN RASHEEDCH [address] Department [place] [address] * eGFR (02/10/2025 7:40 AM CDT) eGFR >90 >=60 mL/min/1. 73 m2 Comment: Interpretive Data Reference Interval Normal >/= 90 mL/min/1.73m2 Mildly decreased* 60 - 89 mL/min/1.73m2 Mildly to moderately decreased 45 - 59 mL/min/1.73m2 Moderately to severely decreased 30 - 44 mL/min/1.73m2 Severely decreased 15 - 29 mL/min/1.73m2 Kidney Failure < 15 mL/min/1.73m2 *Relative to young adult level Estimated glomerular filtration rate is determined by the 2020 CKD-EPI equation recommended by the National Kidney [employer] (A Unifying Approach to GFR Estimation: Recommendations of the NKF-ASK Task Force on Reassessing the Inclusion of Race in Diagnosing Kidney Disease, JASN 2020). The CKD-EPI equation should not be used for patients with unstable renal function and has not been validated in children and those over 70. Current interpretive data was last reviewed 2021. Testing performed by: [facility], [address] [place] [address] Blood 02/10/2025 7:40 AM CDT 02/10/2025 8:17 AM CDT us Gladis Savage NP LAB BLOOD ORDERABLES Final Result [facility] [address] Department [place] [address] * (ABNORMAL) Differential, auto (02/10/2025 7:40 AM CDT) Neutrophil abs 3.80 1.50 - 6.50 K/cumm Comment:Testing performed by : [facility], [facility], [address] [place] [address] Imm gran abs 0.01 0.00 - 0.10 K/cumm GORAN HELM Comment:Testing performed by : [facility], [address] [place] [address] Lymphocyte abs 0.56(L) 0.80 - 3.30 K/cumm GORAN HELM Comment:Testing performed by : [facility], [address] [place] [address] Monocyte abs 0.40 0.20 - 0.80 K/cumm CERNER BJWCH Comment:Testing performed by : [facility], [facility], [address] [place] [address] Eosinophil abs 0.04 0.00 - 0.50 K/cumm CERNER BJWCH Comment:Testing performed by : [facility], [facility], [address], [place] [address] Basophil abs 0.04 0.00 - 0.10 K/cumm CERNER BJWCH Comment:Testing performed by : [facility], [facility], [address], [place] [address] Neutrophil pct 78.5 % CERNER BJWCH Comment: Interpretive Data Percent cell count reference ranges are not reported, since discordance with absolute values may lead to misinterpretation of CBC data. Current Interpretive Data was last revised on 2017. Testing performed by: [facility], [facility], [address] [place] [address] Imm gran pct 0.2 % CERNER BJWCH Comment: Interpretive Data Percent cell count reference ranges are not reported, since discordance with absolute values may lead to misinterpretation of CBC data. Current Interpretive Data was last revised on 2017. Testing performed by: [facility], [facility], [address], [place] [address] Lymphocyte pct 11.5 % CERNER BJWCH Comment: Interpretive Data Percent cell count reference ranges are not reported, since discordance with absolute values may lead to misinterpretation of CBC data. Current Interpretive Data was last revised on 2017. Testing performed by: [facility], [facility], [address] [place] [address] Monocyte pct 8.2 % CERNER BJWCH Comment: Interpretive Data Percent cell count reference ranges are not reported, since discordance with absolute values may lead to misinterpretation of CBC data. Current Interpretive Data was last revised on 2017. Testing performed by: [facility], [address] [place] [address] Eosinophil pct 0.8 % GORAN HELM Comment: Interpretive Data Percent cell count reference ranges are not reported, since discordance with absolute values may lead to misinterpretation of CBC data. Current Interpretive Data was last revised on 2017. Testing performed by: [facility] , [address] [place] [address] Basophil pct 0.8 % GORAN HELM Comment: Interpretive Data Percent cell count reference ranges are not reported, since discordance with absolute values may lead to misinterpretation of CBC data. Current Interpretive Data was last revised on 2017. Testing performed by: [facility] , [address] [place] [address] Blood 02/10/2025 7:40 AM CDT 02/10/2025 7:42 AM CDT Gladis Savage H[facility] AND CAP [facility]ENER LAB BLOOD ORDERABLES Final Result GORAN [facility] [address] [facility] [place]. Department [place] [address] * CBC with auto differential (02/10/2025 7:40 AM CDT) WBC 4.85 3.80 - 9.90 K/cumm Comment:Testing performed by : [facility] , [address] [place] [address] Hgb 13.4 13.0 - 17.5 g/dL GORAN HELM Comment:Testing performed by : [facility], [address] [place] [address] Hct 40.3 38.9 - 50.3 % GORAN HELM Comment:Testing performed by : [facility], [address] [place] [address] Plt 169 150 - 400 K/cumm GORAN HELM Comment:Testing performed by : [facility], [facility], [address] [place] [address] MPV 10.7 9.1 - 12.3 fL CERNER BJWCH Comment:Testing performed by : [facility], [facility], [address] [place] [address] RBC 4.59 4.30 - 5.80 M/cumm CERNER BJWCH Comment:Testing performed by : [place] [address], [address], [place] [address] MCV 87.8 81.3 - 96.4 fL CERNER BJWCH Comment:Testing performed by : [place] [address], [address] [place] [address] MCH 29.2 27.1 - 33.3 pg CERNICHOLE BJWCH Comment:Testing performed by : [place] [address], [address] [place] [address] MCHC 33.3 32.3 - 35.7 g/dL CERNER BJWCH Comment:Testing performed by : [facility], [facility], [address] [place] [address] RDW CV 12.4 11.1 - 14.9 % CERNER BJWCH Comment:Testing performed by : [place] [address], [address] [place] [address] RDW SD 39.7 35.7 - 48.1 fL CERNER BJWCH Comment:Testing performed by : [place] [address], [address] [place] [address] ANC Prelim 3.80 1.50 - 6.50 K/cumm CERNER BJWCH Comment: Interpretive Data The rapid ANC is a preliminary automated count and may vary from the final ANC (Neut Abs) reported in the WBC differential that follows. Current interpretive data was last revised 2024. Testing performed by: [place] [address], [address] [place] [address] Blood 02/10/2025 7:40 AM CDT 02/10/2025 7:42 AM CDT [facility] LAB BLOOD ORDERABLES Final Result Performing Organization Address [facility] Co de Phone Number GORAN YOUSSEFCH [phone] [place] [address] * Uric acid (02/10/2025 7:40 AM CDT) Uric acid 3.7 3.0 - 8.0 mg/dL Comment:Testing performed by : [facility], [address], [place] [address] Blood 02/10/2025 7:40 AM CDT 02/10/2025 8:17 AM CDT [facility] LAB BLOOD ORDERABLES Final Result Performing Organization Address [facility] de Phone Number GORAN YOUSSEFCH [phone] [place] [address] * Triglycerides (02/10/2025 7:40 AM CDT) Triglycerides 142 <=149 mg/dL Comment: Interpretive Data Ages < or = 9 years Acceptable: <75 mg/dL Borderline high: 75-99 mg/dL High: >or= 100 mg/dL Ages 10 to 20 years Acceptable: <90 mg/dL Borderline high: 90-129 mg/dL High: >or= 130 mg/dL Ages > or = 20 years Desirable: <150 mg/dL Borderline high: 150-199 mg/dL High: 200-499 mg/dL Very high: >or= 499 mg/dL Literature References: 1. Expert Panel on Integrated Guidelines for Cardiovascular Health and Risk Reduction in Children and Adolescents. Pediatrics 2011;128:S213 2. NCEP Expert Panel. Circulation 2004;110:227 Current Interpretive Data was last revised on 2018. Testing performed by: [facility], [address] [place] [address] Blood 02/10/2025 7:40 AM CDT 02/10/2025 8:17 AM CDT [facility] HAT AND CAP OPENER LAB BLOOD ORDERABLES Final Result GORAN HELM [id number] [place] [address] * (ABNORMAL) PSA diagnostic (02/10/2025 7:40 AM CDT) PSA-Total 21.29(H) <=5.40 ng/mL Comment: Interpretive Data AGE SEX REFERENCE INTERVAL 0 minutes-150 years Female None 0 minutes-49 years Male None 50-59 years Male 0-3.90 60-69 years Male 0-5.40 70-79 years Male 0-6.20 80-150 years Male 0-6.20 The Josh PSA Total assay procedure was used. Results from different manufacturers or methods may not be comparable. Serial testing should be performed using the same method. Current interpretive data last revised 22. Testing performed by: [facility], [address] [place] [address] Blood 02/10/2025 7:40 AM CDT 02/10/2025 8:17 AM CDT [facility] LAB BLOOD ORDERABLES Final Result Performing Organization Address [facility] Co de Phone Number GORAN HELM [phone] [facility] [place] [address] * Phosphorus (02/10/2025 7:40 AM CDT) Phosphorus, pl 3.5 2.3 - 4.5 mg/dL Comment:Testing performed by : [facility], [address] [place] [address] Blood 02/10/2025 7:40 AM CDT 02/10/2025 8:17 AM CDT [facility] HAT AND CAP OPENER LAB BLOOD ORDERABLES Final Result Performing Organization Address [facility] de Phone Number GORAN YOUSSEFWCH [phone] [place] [address] * Lactate dehydrogenase (LD) (02/10/2025 7:40 AM CDT) Lactate dehydrogenase (LDH) 130 100 - 250 Units/L Comment:Testing performed by : [facility], [address], [place] [address] Blood 02/10/2025 7:40 AM CDT 02/10/2025 8:17 AM CDT [facility] LAB BLOOD ORDERABLES Final Result Performing Organization Address [facility] de Phone Number GORAN BJWCH [phone] [place] [address] * Gamma GT (02/10/2025 7:40 AM CDT) Pathologist [facility] GGT 17 10 - 50 Units/L Comment:Testing performed by : [facility], [address], [place] [address] Blood 02/10/2025 7:40 AM CDT 02/10/2025 8:17 AM CDT [facility] HAT AND CAP OPENER LAB BLOOD ORDERABLES Final Result Performing Organization Address [facility] Co de Phone Number GORAN BJWCH [phone] [place] [address] * (ABNORMAL) Creatine kinase (CK), total (02/10/2025 7:40 AM CDT) CK 23(L) 40 - 300 Units/L Comment:Testing performed by : [facility], [address], [place] [address] Blood 02/10/2025 7:40 AM CDT 02/10/2025 8:17 AM CDT Gladisguanakito Tracey Hussein DANG LAB BLOOD ORDERABLES Final Result [facility] [address] Department [place] [address] * Comprehensive metabolic panel (02/10/2025 7:40 AM CDT) Sodium 143 135 - 145 mmol/L Comment:Testing performed by : [facility], [address], [place] [address] Potassium, pl 4.1 3.3 - 4.9 mmol/L CERNICHOLE YOUSSEFWCH Comment:Testing performed by : [facility], [address], [place] [address] Chloride 103 97 - 110 mmol/L CERNICHOLE YOUSSEFWCH Comment:Testing performed by : [facility], [address], [place] [address] CO2 29 22 - 32 mmol/L CERNICHOLE BJWCH Comment:Testing performed by : [facility], [address], [place] [address] Anion gap 11 2 - 15 mmol/L CERNICHOLE BJWCH Comment:Testing performed by : [facility], [address], [place] [address] BUN 17 6 - 25 mg/dL CERNICHOLE BJWCH Comment:Testing performed by : [facility], [address], [place] [address] Creatinine 0.90 0.80 - 1.30 mg/dL CERNER BJWCH Comment:Testing performed by : [facility], [address], [place] [address] Glucose 174 70 - 199 mg/dL CERNICHOLE BJWCH Comment: Interpretive Data Fasting glucose >/= 126 mg/dl is diagnostic for diabetes. Fasting is defined as no caloric intake for at least 8 hours. Fasting glucose between 100 mg/dl to 125 mg/dl is diagnostic of prediabetes. In a patient with classic symptoms of hyperglycemia or hyperglycemic crisis, a random glucose >/= 200 mg/dl is diagnostic for diabetes. In the absence of unequivocal hyperglycemia, results should be confirmed by repeat testing. The classification and Diagnosis of Diabetes Diabetes Care 202; 46: S19-S40. Current interpretive data was last revised 2022. Testing performed by: [facility], [address], [place] [address] Calcium 10.0 8.5 - 10.3 mg/dL CERNER BJWCH Comment:Testing performed by : [facility], [address], [place] [address] Bilirubin, total 0.2 0.1 - 1.2 mg/dL CERNER BJWCH Comment:Testing performed by : [facility], [address], [place] [address] Protein, pl 6.8 6.5 - 8.5 g/dL CERNER BJWCH Comment:Testing performed by : [facility], [address], [place] [address] Albumin 4.6 3.5 - 5.0 g/dL CERNER BJWCH Comment:Testing performed by : [facility], [address], [place] [address] Alk phos 67 40 - 130 Units/L CERNER BJWCH Comment:Testing performed by : [facility], [address], [place] [address] ALT 16 7 - 55 Units/L CERNER BJWCH Comment:Testing performed by : [facility], [address], [place] [address] AST 21 10 - 50 Units/L CERNER BJWCH Comment:Testing performed by : [facility], [address], [place] [address] Blood 02/10/2025 7:40 AM CDT 02/10/2025 8:17 AM CDT us Gladis Savage NP LAB BLOOD ORDERABLES Final Result [facility] [address] Department [place] [address] * NM Bone Imaging Whole Body (02/08/2025 10:44 AM CDT) Anatomical Region Laterality Modality N/A Positron Emissio n Tomography (PET) 02/08/2025 11:5 5 AM CDT Addenda Addendum by Domenic Charlton MD on 02/09/2025 5:58 PM CDT ADDENDUM by Domenic Charlton M.D. on 02/09/2025 This addendum is issued to correct the side of the new focus of tracer uptake in the skull. This focus is on the right side and not the left. Electronically signed by: Domenic Charlton M.D. Impressions 02/08/2025 12:06 PM CDT 1. New foci of increased tracer uptake in the lateral left 5th rib and left frontoparietal skull, suspicious for new sites of disease. Recommend attention on follow-up imaging. 2. 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 Dictated by: Bandar Middleton MD The radiology attending physician has personally reviewed this study, and had reviewed and/or edited this written report and agrees with it. Electronically signed by: Domenic Charlton M.D. Narrative 02/08/2025 12:06 PM CDT EXAMINATION: BONE SCINTIGRAPHY (WHOLE-BODY) DATE OF STUDY: 02/08/2025 RADIOPHARMACEUTICAL: 21.6 mCi Tc-99m MDP i.v. HISTORY: 69-year-old man with prostate cancer diagnosed in 2009 ([place] 4+3), status post radical prostatectomy, radiation and androgen deprivation therapy. He is currently being treated on the [id number] trial, since September 2024. The most recently obtained PSA on 01/20/2025 is 16.24 ng/mL, increased from 12.46 on 12/30/2024. FINDINGS: Delayed whole-body scintigrams were obtained. Prior nuclear medicine studies used for comparison: Multiple bone scintigraphy studies dating from 03/22/2023 to 12/04/2024, PSMA PET/CT 02/01/2025 Other radiographic comparisons: Multiple prior CTs, most recently CT chest abdomen pelvis 02/08/2025 There is a new focus of tracer uptake in the lateral left 5th rib. There is also a new focus of tracer uptake in the left frontoparietal skull. Unchanged osseous metastatic disease affecting the right 5th rib. No definite focus of increased uptake is seen in the right 7th rib. No definite increased tracer uptake within left scapula to correlate with recent PSMA PET finding. Unchanged degenerative pattern of uptake in the bilateral shoulders, elbows, wrists, and knees. Procedure Note Domenic Charlton MD - 02/08/2025 EXAMINATION: BONE SCINTIGRAPHY (WHOLE-BODY) DATE OF STUDY: 02/08/2025 RADIOPHARMACEUTICAL: 21.6 mCi Tc-99m MDP i.v. HISTORY: 69-year-old man with prostate cancer diagnosed in 2009 ([place] 4+3), status post radical prostatectomy, radiation and androgen deprivation therapy. He is currently being treated on the [id number] trial, since September 2024. The most recently obtained PSA on 01/20/2025 is 16.24 ng/mL, increased from 12.46 on 12/30/2024. FINDINGS: Delayed whole-body scintigrams were obtained. Prior nuclear medicine studies used for comparison: Multiple bone scintigraphy studies dating from 03/22/2023 to 12/04/2024, PSMA PET/CT 02/01/2025 Other radiographic comparisons: Multiple prior CTs, most recently CT chest abdomen pelvis 02/08/2025 There is a new focus of tracer uptake in the lateral left 5th rib. There is also a new focus of tracer uptake in the left frontoparietal skull. Unchanged osseous metastatic disease affecting the right 5th rib. No definite focus of increased uptake is seen in the right 7th rib. No definite increased tracer uptake within left scapula to correlate with recent PSMA PET finding. Unchanged degenerative pattern of uptake in the bilateral shoulders, elbows, wrists, and knees. IMPRESSION: 1. New foci of increased tracer uptake in the lateral left 5th rib and left frontoparietal skull, suspicious for new sites of disease. Recommend attention on follow-up imaging. 2. 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 Dictated by: Bandar Middleton MD The radiology attending physician has personally reviewed this study, and had reviewed and/or edited this written report and agrees with it. Electronically signed by: Domenic Charlton M.D. Kemal Lemosi MD IMG NM PROCEDURES Edit ed Result - Final * CT Chest Abdomen Pelvis W Contrast (02/08/2025 8:20 AM CDT) Anatomical Region Laterality Modality Body N/A Computed Tomogra phy 02/08/2025 8:45 AM CDT Impressions 02/08/2025 8:46 AM CDT 1. Unchanged enhancing soft tissue mass in the pelvis and the area of the prostatectomy involving the bladder, rectum, urethra, and anus with unchanged osseous metastasis. 2. No evidence of disease progression. Dictated by: Alvaro Castillo MD The radiology attending physician has personally reviewed this study, and had reviewed and/or edited this written report and agrees with it. Electronically signed by: Renato Cutler M.D. Narrative 02/08/2025 8:46 AM CDT EXAMINATION: Computed tomography of the chest, abdomen and pelvis with intravenous contrast HISTORY: Prostate cancer TECHNIQUE: Transaxial computed tomographic images of the chest, abdomen and pelvis were obtained with intravenous contrast according to the standard protocol after the uneventful administration of 100 mL Opti-Ray 350 intravenous contrast. COMPARISON: PET scan 02/09/2025, CT 12/04/2024 FINDINGS: Chest: Trachea appears normal. Imaged thyroid within normal limits. No supraclavicular, axillary, or mediastinal lymphadenopathy. Heart size normal without pericardial effusion. Normal caliber of the thoracic aorta. Moderate multivessel coronary artery calcifications are present. Decompressed esophagus. 5 mm fissural nodule at the right major fissure likely lymph node. No suspicious pulmonary nodule. No effusion or pneumothorax. Calcified granulomas are present. Abdomen/Pelvis: Hypoattenuating lesion at the hepatic dome likely a cyst stable from prior. The gallbladder, spleen, pancreas within normal limits. 1.2 cm left adrenal nodule is present, unchanged from prior study likely reflecting adenoma. Large and small bowel are nondilated without evidence of obstruction. Changes of prostatectomy. There is unchanged enhancing soft tissue mass in the prostatectomy bed abutting the bladder and rectum posteriorly with adjacent satellite nodularity. Prominent inguinal lymph nodes are unchanged. Normal caliber of the abdominal aorta with moderate severe atherosclerotic calcifications. Unchanged presacral edema with soft tissue thickening likely sequela of prior radiation. Serpiginous sclerosis at the right femoral head likely sequela of old osteonecrosis. Unchanged lytic lesion in right posterior fifth rib. Additional scattered subtle sclerotic lesions do not appear significant changed, for instance Right lateral seventh rib lesion is unchanged. Procedure Note Renato Cutler MD - 02/08/2025 EXAMINATION: Computed tomography of the chest, abdomen and pelvis with intravenous contrast HISTORY: Prostate cancer TECHNIQUE: Transaxial computed tomographic images of the chest, abdomen and pelvis were obtained with intravenous contrast according to the standard protocol after the uneventful administration of 100 mL Opti-Ray 350 intravenous contrast. COMPARISON: PET scan 02/09/2025, CT 12/04/2024 FINDINGS: Chest: Trachea appears normal. Imaged thyroid within normal limits. No supraclavicular, axillary, or mediastinal lymphadenopathy. Heart size normal without pericardial effusion. Normal caliber of the thoracic aorta. Moderate multivessel coronary artery calcifications are present. Decompressed esophagus. 5 mm fissural nodule at the right major fissure likely lymph node. No suspicious pulmonary nodule. No effusion or pneumothorax. Calcified granulomas are present. Abdomen/Pelvis: Hypoattenuating lesion at the hepatic dome likely a cyst stable from prior. The gallbladder, spleen, pancreas within normal limits. 1.2 cm left adrenal nodule is present, unchanged from prior study likely reflecting adenoma. Large and small bowel are nondilated without evidence of obstruction. Changes of prostatectomy. There is unchanged enhancing soft tissue mass in the prostatectomy bed abutting the bladder and rectum posteriorly with adjacent satellite nodularity. Prominent inguinal lymph nodes are unchanged. Normal caliber of the abdominal aorta with moderate severe atherosclerotic calcifications. Unchanged presacral edema with soft tissue thickening likely sequela of prior radiation. Serpiginous sclerosis at the right femoral head likely sequela of old osteonecrosis. Unchanged lytic lesion in right posterior fifth rib. Additional scattered subtle sclerotic lesions do not appear significant changed, for instance Right lateral seventh rib lesion is unchanged. IMPRESSION: 1. Unchanged enhancing soft tissue mass in the pelvis and the area of the prostatectomy involving the bladder, rectum, urethra, and anus with unchanged osseous metastasis. 2. No evidence of disease progression. Dictated by: Alvaro Castillo MD The radiology attending physician has personally reviewed this study, and had reviewed and/or edited this written report and agrees with it. Electronically signed by: Renato Cutler M.D. Kemal Maxx Guillaume MD IMG CT PROCEDURES Vanessa l Result * PET/CT Prostate Cancer PSMA Skull to Thigh (02/01/2025 2:28 PM CDT) Anatomical Region Laterality Modality N/A Positron Emissio n Tomography (PET) 02/01/2025 3:45 PM CDT Impressions 02/01/2025 7:30 PM CDT The overall disease burden as assessed by PSMA-PET/CT is decreased from the prior examination, with decreased uptake in previously described sites of pelvic, visceral, and osseous disease. However, note is made of new sclerotic bone lesions involving the left glenoid and left lateral 5th rib which demonstrate faint tracer uptake. Dictated by: Renato Ritter MD The radiology attending physician has personally reviewed this study, and had reviewed and/or edited this written report and agrees with it. Electronically signed by: Reggie Villasenor M.D. Narrative 02/01/2025 7:30 PM CDT EXAMINATION: PSMA-PET/CT DATE OF STUDY: 02/01/2025 SCANNER: MERGED WITH [facility] [employer] (NV1). This is a high-resolution scanner, which can result in higher SUVs (and even detection of previously unrecognized small lesions) compared to older scanners. RADIOPHARMACEUTICAL: 9.82 mCi F-18 DCFPyL (Piflufolastat) i.v. Injection site: Right antecubital HISTORY: 69-year-old man with prostate cancer diagnosed in 2009 ([place] 4+3), status post radical prostatectomy, radiation and androgen deprivation therapy. He is currently being treated on the [id number] trial, since September 2024. The most recently obtained PSA on 01/20/2025 is 16.24 ng/mL, increased from 12.46. The study is requested for restaging of suspected progressive prostate cancer. Subsequent treatment strategy. TECHNIQUE: After intravenous administration of tracer, noncontrast CT images were obtained for attenuation correction and for fusion with emission PET images to allow for anatomical localization of PET findings. Emission PET images were then obtained. The study was interpreted on the flaveit workstation. The total scanned area was mid thighs to skull vertex. Images of the body were obtained starting 70 minutes after injection of tracer. REFERENCE TISSUE MAXIMUM SUVs: Parotid gland 9.5; Liver 4.0; Blood pool 1.0 Focal PSMA tracer uptake is graded as follows: * Faint: above background to blood pool * Mild: above blood pool to liver * Moderate: above liver to salivary glands * Intense: similar to or above salivary glands COMPARISON: PET/CT dated 09/29/2024 FINDINGS: Prostate/Prostate bed: Status post radical prostatectomy. Interval decrease in tracer uptake within previously described soft tissue emanating from the right aspect of the prostatectomy bed, now with faint to mild activity Regional lymph nodes: Previously seen tracer-avid lymph nodes involving the mesorectal, right internal iliac, right external iliac, and right obturator stations are markedly improved. The uptake in many of these nodes is now at most faint. Extra-pelvic lymph nodes: Right common iliac lymphadenopathy has resolved. There is decreased but persistent moderate to intense uptake within bilateral inguinal nodes, though the nodes have decreased in size from prior. For reference, a left inguinal node measures 7 mm compared to 14 mm previously. Bone: Interval decrease in tracer uptake associated with the right posterior 5th rib lesion with associated increase in sclerosis. The uptake in this lesion is now faint. Similarly, the right lateral 7th rib lesion demonstrates only faint activity. A left iliac bone lesion redemonstrated now has only faint uptake with associated increase in sclerosis. However, there are new faintly tracer-avid sclerotic lesions within the left glenoid (image 97) and in the lateral left 5th rib (image 136) Visceral: There is a focus of intense perianal tracer uptake seen on image 295. This is decreased in extent compared to the prior examination. Similarly, previously seen penile tracer uptake is improved with a small focus of residual mild-moderate tracer uptake seen within the penis on image 303. Additional CT findings: Coronary artery calcifications. Bilateral gynecomastia. Old granulomatous disease in the thorax and spleen. Unchanged thickening of the left adrenal gland. Presacral edema, likely related to prior radiation. Non tracer avid subcutaneous nodule in the right anterior abdominal wall, nonspecific. Aortic atherosclerotic calcifications. Anterior cervical discectomy and instrumented fusion at C5-C6. Procedure Note Reggie Villasenor MD - 02/01/2025 EXAMINATION: PSMA-PET/CT DATE OF STUDY: 02/01/2025 SCANNER: MERGED WITH [facility] N PET Vision (NV1). This is a high-resolution scanner, which can result in higher SUVs (and even detection of previously unrecognized small lesions) compared to older scanners. RADIOPHARMACEUTICAL: 9.82 mCi F-18 DCFPyL (Piflufolastat) i.v. Injection site: Right antecubital HISTORY: 69-year-old man with prostate cancer diagnosed in 2009 (Sid 4+3), status post radical prostatectomy, radiation and androgen deprivation therapy. He is currently being treated on the [id number] trial, since September 2024. The most recently obtained PSA on 01/20/2025 is 16.24 ng/mL, increased from 12.46. The study is requested for restaging of suspected progressive prostate cancer. Subsequent treatment strategy. TECHNIQUE: After intravenous administration of tracer, noncontrast CT images were obtained for attenuation correction and for fusion with emission PET images to allow for anatomical localization of PET findings. Emission PET images were then obtained. The study was interpreted on the flaveit workstation. The total scanned area was mid thighs to skull vertex. Images of the body were obtained starting 70 minutes after injection of tracer. REFERENCE TISSUE MAXIMUM SUVs: Parotid gland 9.5; Liver 4.0; Blood pool 1.0 Focal PSMA tracer uptake is graded as follows: * Faint: above background to blood pool * Mild: above blood pool to liver * Moderate: above liver to salivary glands * Intense: similar to or above salivary glands COMPARISON: PET/CT dated 09/29/2024 FINDINGS: Prostate/Prostate bed: Status post radical prostatectomy. Interval decrease in tracer uptake within previously described soft tissue emanating from the right aspect of the prostatectomy bed, now with faint to mild activity Regional lymph nodes: Previously seen tracer-avid lymph nodes involving the mesorectal, right internal iliac, right external iliac, and right obturator stations are markedly improved. The uptake in many of these nodes is now at most faint. Extra-pelvic lymph nodes: Right common iliac lymphadenopathy has resolved. There is decreased but persistent moderate to intense uptake within bilateral inguinal nodes, though the nodes have decreased in size from prior. For reference, a left inguinal node measures 7 mm compared to 14 mm previously. Bone: Interval decrease in tracer uptake associated with the right posterior 5th rib lesion with associated increase in sclerosis. The uptake in this lesion is now faint. Similarly, the right lateral 7th rib lesion demonstrates only faint activity. A left iliac bone lesion redemonstrated now has only faint uptake with associated increase in sclerosis. However, there are new faintly tracer-avid sclerotic lesions within the left glenoid (image 97) and in the lateral left 5th rib (image 136) Visceral: There is a focus of intense perianal tracer uptake seen on image 295. This is decreased in extent compared to the prior examination. Similarly, previously seen penile tracer uptake is improved with a small focus of residual mild-moderate tracer uptake seen within the penis on image 303. Additional CT findings: Coronary artery calcifications. Bilateral gynecomastia. Old granulomatous disease in the thorax and spleen. Unchanged thickening of the left adrenal gland. Presacral edema, likely related to prior radiation. Non tracer avid subcutaneous nodule in the right anterior abdominal wall, nonspecific. Aortic atherosclerotic calcifications. Anterior cervical discectomy and instrumented fusion at C5-C6. IMPRESSION: The overall disease burden as assessed by PSMA-PET/CT is decreased from the prior examination, with decreased uptake in previously described sites of pelvic, visceral, and osseous disease. However, note is made of new sclerotic bone lesions involving the left glenoid and left lateral 5th rib which demonstrate faint tracer uptake. Dictated by: Renato Ritter MD The radiology attending physician has personally reviewed this study, and had reviewed and/or edited this written report and agrees with it. Electronically signed by: Reggie Villasenor M.D. Kemal Guillaume MD IMG PET PROCEDURES Fin al Result * eGFR (01/20/2025 7:43 AM CDT) eGFR >90 >=60 mL/min/1. 73 m2 Comment: Interpretive Data Reference Interval Normal >/= 90 mL/min/1.73m2 Mildly decreased* 60 - 89 mL/min/1.73m2 Mildly to moderately decreased 45 - 59 mL/min/1.73m2 Moderately to severely decreased 30 - 44 mL/min/1.73m2 Severely decreased 15 - 29 mL/min/1.73m2 Kidney Failure < 15 mL/min/1.73m2 *Relative to young adult level Estimated glomerular filtration rate is determined by the 2020 CKD-EPI equation recommended by the National Kidney Foundation (A Unifying Approach to GFR Estimation: Recommendations of the NKF-ASK Task Force on Reassessing the Inclusion of Race in Diagnosing Kidney Disease, JASN 202). The CKD-EPI equation should not be used for patients with unstable renal function and has not been validated in children and those over 70. Current interpretive data was last reviewed 2021. Testing performed by: [facility], [address] [place] [address] Blood 01/20/2025 7:43 AM CDT 01/20/2025 8:17 AM CDT us Kemal Guillaume MD LAB BLOOD ORDERABLES F inal Result [facility] [address] Department [place] [address] * (ABNORMAL) Differential, auto (01/20/2025 7:43 AM CDT) Neutrophil abs 4.30 1.50 - 6.50 K/cumm Comment:Testing performed by : [facility], [facility], [address] [place] [address] Imm gran abs 0.01 0.00 - 0.10 K/cumm GORAN HELM Comment:Testing performed by : [facility], [address] [place] [address] Lymphocyte abs 0.53(L) 0.80 - 3.30 K/cumm GORAN HELM Comment:Testing performed by : [facility], [address] [place] [address] Monocyte abs 0.45 0.20 - 0.80 K/cumm GORAN HELM Comment:Testing performed by : [facility], [address] [place] [address] Eosinophil abs 0.04 0.00 - 0.50 K/cumm GORAN HELM Comment:Testing performed by : [facility], [address] [place] [address] Basophil abs 0.02 0.00 - 0.10 K/cumm CERNER BJWCH Comment:Testing performed by : [facility], [facility], [address] [place] [address] Neutrophil pct 80.4 % CERNER BJWCH Comment: Interpretive Data Percent cell count reference ranges are not reported, since discordance with absolute values may lead to misinterpretation of CBC data. Current Interpretive Data was last revised on 2017. Testing performed by: [facility], [facility], [address] [place] [address] Imm gran pct 0.2 % CERNER BJWCH Comment: Interpretive Data Percent cell count reference ranges are not reported, since discordance with absolute values may lead to misinterpretation of CBC data. Current Interpretive Data was last revised on 2017. Testing performed by: [facility], [address] [place] [address] Lymphocyte pct 9.9 % CERNER BJWCH Comment: Interpretive Data Percent cell count reference ranges are not reported, since discordance with absolute values may lead to misinterpretation of CBC data. Current Interpretive Data was last revised on 2017. Testing performed by: [facility], [facility], [address] [place] [address] Monocyte pct 8.4 % CERNER BJWCH Comment: Interpretive Data Percent cell count reference ranges are not reported, since discordance with absolute values may lead to misinterpretation of CBC data. Current Interpretive Data was last revised on 2017. Testing performed by: [facility], [facility], [address] [place] [address] Eosinophil pct 0.7 % CERNER BJWCH Comment: Interpretive Data Percent cell count reference ranges are not reported, since discordance with absolute values may lead to misinterpretation of CBC data. Current Interpretive Data was last revised on 2017. Testing performed by: [facility], [facility], [address] [place] [address] Basophil pct 0.4 % CERNER BJWCH Comment: Interpretive Data Percent cell count reference ranges are not reported, since discordance with absolute values may lead to misinterpretation of CBC data. Current Interpretive Data was last revised on 2017. Testing performed by: [facility], [address] [place] [address] Blood 01/20/2025 7:43 AM CDT 01/20/2025 7:43 AM CDT Kemal Guillaume MD LAB BLOOD ORDERABLES F inal Result [facility] [address] [facility] [place]. Department [place] [address] * CBC with auto differential (01/20/2025 7:43 AM CDT) WBC 5.35 3.80 - 9.90 K/cumm Comment:Testing performed by : [place] [address], [address] [place] [address] Hgb 13.3 13.0 - 17.5 g/dL GORAN RASHEED Comment:Testing performed by : [place] [address], [address] [place] [address] Hct 40.2 38.9 - 50.3 % [facility]AN [facility] Comment:Testing performed by : [address] [place] [address] Plt 181 150 - 400 K/cumm GORAN YOUSSEF[facility]STEBAN Comment:Testing performed by : [place] [address], [address] [place] [address] MPV 10.7 9.1 - 12.3 fL GORAN HELM Comment:Testing performed by : [facility], [address] [place] [address] RBC 4.61 4.30 - 5.80 M/cumm GORAN YOUSSEFWCH Comment:Testing performed by : [place] [address], [address] [place] [address] MCV 87.2 81.3 - 96.4 fL [facility] Comment:Testing performed by : [facility], [facility], [address] [place] [address] MCH 28.9 27.1 - 33.3 pg GORAN RASHEEDCH Comment:Testing performed by : [facility], [address] [place] [address] MCHC 33.1 32.3 - 35.7 g/dL GORAN YOUSSEFCH Comment:Testing performed by : [facility], [facility], [address] [place] [address] RDW CV 12.0 11.1 - 14.9 % GORAN YOUSSEFCH Comment:Testing performed by : [facility], [facility], [address] [place] [address] RDW SD 38.7 35.7 - 48.1 fL GOARN YOUSSEFCH Comment:Testing performed by : [facility], [facility], [address] [place] [address] ANC Prelim 4.30 1.50 - 6.50 K/cumm [facility] Comment: Interpretive Data The rapid ANC is a preliminary automated count and may vary from the final ANC (Neut Abs) reported in the WBC differential that follows. Current interpretive data was last revised 2024. Testing performed by: [facility], [facility], [address] [place] [address] Blood 01/20/2025 7:43 AM CDT 01/20/2025 7:43 AM CDT us Kemal Guillaume MD LAB BLOOD ORDERABLES F inal Result [facility] [address] [facility] [place]. Department [place] [address] * Uric acid (01/20/2025 7:43 AM CDT) Uric acid 3.6 3.0 - 8.0 mg/dL Comment:Testing performed by : [facility], [address] [place] [address] Blood 01/20/2025 7:43 AM CDT 01/20/2025 8:17 AM CDT Kmeal Guillaume MD LAB BLOOD ORDERABLES F inal Result Performing Organization Address City/[facility] Co de Phone Number GORAN BJWCH [address] [address] [facility]. [facility] [place] [address] * Triglycerides (01/20/2025 7:43 AM CDT) Triglycerides 134 <=149 mg/dL Comment: Interpretive Data Ages < or = 9 years Acceptable: <75 mg/dL Borderline high: 75-99 mg/dL High: >or= 100 mg/dL Ages 10 to 20 years Acceptable: <90 mg/dL Borderline high: 90-129 mg/dL High: >or= 130 mg/dL Ages > or = 20 years Desirable: <150 mg/dL Borderline high: 150-199 mg/dL High: 200-499 mg/dL Very high: >or= 499 mg/dL Literature References: 1. Expert Panel on Integrated Guidelines for Cardiovascular Health and Risk Reduction in Children and Adolescents. Pediatrics 2011;128:S213 2. NCEP Expert Panel. Circulation 2004;110:227 Current Interpretive Data was last revised on 2018. Testing performed by: [facility], [address] [place] [address] Blood 01/20/2025 7:43 AM CDT 01/20/2025 8:17 AM CDT Kemal Guillaume MD LAB BLOOD ORDERABLES F inal Result Performing Organization Address City/[facility] Co de Phone Number GORAN BJWCH [phone] [address] [facility] [place] [address] * (ABNORMAL) PSA diagnostic (01/20/2025 7:43 AM CDT) PSA-Total 16.24(H) <=5.40 ng/mL Comment: Interpretive Data AGE SEX REFERENCE INTERVAL 0 minutes-150 years Female None 0 minutes-49 years Male None 50-59 years Male 0-3.90 60-69 years Male 0-5.40 70-79 years Male 0-6.20 80-150 years Male 0-6.20 The Josh PSA Total assay procedure was used. Results from different manufacturers or methods may not be comparable. Serial testing should be performed using the same method. Current interpretive data last revised 22. Testing performed by: [facility], [address] [address] Blood 01/20/2025 7:43 AM CDT 01/20/2025 8:17 AM CDT Kemal Guillaume MD LAB BLOOD ORDERABLES F inal Result Performing Organization Address City/[facility]/ZIP Co de Phone Number [facility] [address] [facility] [place]. [facility] [place] [address] * Phosphorus (01/20/2025 7:43 AM CDT) [facility] Phosphorus, pl 2.9 2.3 - 4.5 mg/dL Comment:Testing performed by : [facility], [address] [address] Blood 01/20/2025 7:43 AM CDT 01/20/2025 8:17 AM CDT Kemal Guillaume MD LAB BLOOD ORDERABLES F inal Result [facility] [address] [facility] [place]. [facility] [place] [address] * Lactate dehydrogenase (LD) (01/20/2025 7:43 AM CDT) [facility] Lactate dehydrogenase (LDH) 143 100 - 250 Units/L Comment:Testing performed by : [facility], [address] [place] [address] Blood 01/20/2025 7:43 AM CDT 01/20/2025 8:17 AM CDT Kemal Guillaume MD LAB BLOOD ORDERABLES F inal Result Performing Organization Address [facility] Co de Phone Number GORAN BJWCH [phone] [facility] [place]. [facility] [place] [address] * Gamma GT (01/20/2025 7:43 AM CDT) Pathologist [facility] GGT 19 10 - 50 Units/L Comment:Testing performed by : [facility], [address] [place] [address] Blood 01/20/2025 7:43 AM CDT 01/20/2025 8:17 AM CDT Kemal Guillaume MD LAB BLOOD ORDERABLES F inal Result Performing Organization Address [facility] Co de Phone Number [facility] [address] [facility] [place]. Department [place] [address] * (ABNORMAL) Creatine kinase (CK), total (01/20/2025 7:43 AM CDT) [facility] CK 22(L) 40 - 300 Units/L Comment:Testing performed by : [facility], [address] [place] [address] Blood 01/20/2025 7:43 AM CDT 01/20/2025 8:17 AM CDT Kemal Guillaume MD LAB BLOOD ORDERABLES F inal Result Performing Organization Address City/[facility] Co de Phone Number KALEBNER BJWCH [address] [facility] [place]. [facility] [place] [address] * (ABNORMAL) Comprehensive metabolic panel (01/20/2025 7:43 AM CDT) Sodium 141 135 - 145 mmol/L Comment:Testing performed by : [facility], [address], [place] [address] Potassium, pl 3.7 3.3 - 4.9 mmol/L CERNER BJWCH Comment:Testing performed by : [facility], [address], [place] [address] Chloride 102 97 - 110 mmol/L CERNER BJWCH Comment:Testing performed by : [facility], [address], [place] [address] CO2 28 22 - 32 mmol/L CERNER BJWCH Comment:Testing performed by : [facility], [address], [place] [address] Anion gap 11 2 - 15 mmol/L CERNER BJWCH Comment:Testing performed by : [facility], [address], [place] [address] BUN 18 6 - 25 mg/dL CERNER BJWCH Comment:Testing performed by : [facility], [address], [place] [address] Creatinine 0.70(L) 0.80 - 1.30 mg/dL CERNER BJWCH Comment:Testing performed by : [facility], [address], [place] [address] Glucose 156 70 - 199 mg/dL CERNER BJWCH Comment: Interpretive Data Fasting glucose >/= 126 mg/dl is diagnostic for diabetes. Fasting is defined as no caloric intake for at least 8 hours. Fasting glucose between 100 mg/dl to 125 mg/dl is diagnostic of prediabetes. In a patient with classic symptoms of hyperglycemia or hyperglycemic crisis, a random glucose >/= 200 mg/dl is diagnostic for diabetes. In the absence of unequivocal hyperglycemia, results should be confirmed by repeat testing. The classification and Diagnosis of Diabetes Diabetes Care 2021; 46: S19-S40. Current interpretive data was last revised 2022. Testing performed by: [facility], [address], [place] [address] Calcium 9.7 8.5 - 10.3 mg/dL CERNER BJWCH Comment:Testing performed by : [facility], [address], [place] [address] Bilirubin, total 0.2 0.1 - 1.2 mg/dL CERNER BJWCH Comment:Testing performed by : [facility], [address], [place] [address] Protein, pl 6.9 6.5 - 8.5 g/dL CERNER BJWCH Comment:Testing performed by : [facility], [address], [place] [address] Albumin 4.3 3.5 - 5.0 g/dL CERNER BJWCH Comment:Testing performed by : [facility], [address], [place] [address] Alk phos 74 40 - 130 Units/L CERNER BJWCH Comment:Testing performed by : [facility], [address], [place] [address] ALT 16 7 - 55 Units/L CERNER BJWCH Comment:Testing performed by : [facility], [address], [place] [address] AST 24 10 - 50 Units/L CERNER BJWCH Comment:Testing performed by : [facility], [address], [place] [address] Blood 01/20/2025 7:43 AM CDT 01/20/2025 8:17 AM CDT Kemal Guillaume MD LAB BLOOD ORDERABLES F inal Result [facility] [address] Department [place] [address] * Urinalysis reflex to microscopic and culture Urine (01/20/2025 7:37 AM CDT) Color, ur Yellow Yellow Comment:Testing performed by : [facility], [address], [place] [address] Clarity, ur Clear Clear CERNER BJWCH Comment:Testing performed by : [facility], [address], [place] [address] Specific gravity, ur 1.029 1.003 - 1.030 CERNER BJWCH Comment:Testing performed by : [facility], [address], [place] [address] pH, urine 5.5 CERNER BJWCH Comment: Interpretive Data U rine pH is affected by diet, medications, systemic acid-base disturbances, and renal tubular function. pH may affect urinary stone formation. For example, urine pH below 6.0 may help reduce the tendency for calcium phosphate stones and pH greater than 6.0 may reduce the tendency for uric acid stone formation. Source: [employer] Current Interpretive Data was last revised on 2017 Testing performed by: [facility], [address], [place] [address] Protein, ur ql Trace Negative CERNER BJWCH Comment:Testing performed by : [facility], [address], [place] [address] Glucose, ur ql Negative Negative CERNER BJWCH Comment:Testing performed by : [facility], [address], [place] [address] Ketones, ur Negative Negative CERNER BJWCH Comment:Testing performed by : [facility], [address], [place] [address] Bilirubin, ur Negative Negative CERNER BJWCH Comment:Testing performed by : [facility], [address], [place] [address] Blood, ur Negative Negative CERNER BJWCH Comment:Testing performed by : [facility], [address], [place] [address] Urobilinogen, ur <2.0 <2.0 mg/dL CERNER BJWCH Comment:Testing performed by : [facility], [address], [place] [address] Nitrite, ur Negative Negative CERNER BJWCH Comment:Testing performed by : [facility], [address], [place] [address] Leukocyte esterase, ur Negative Negative CERNER BJWCH Comment:Testing performed by : [facility], [address] [place] [address] UA reflex comment Reflex conditions for microscopic UA and culture not met. GORAN HELM Comment:Testing performed by : [facility], [address] [place] [address] Urine 01/20/2025 7:37 AM CDT 01/20/2025 8:20 AM CDT Kemal Guillaume MD LAB MICROBIOLOGY - GEN ERAL ORDERABLES Final Result GORAN RASHEEDCH [address]. Department [place] [address] * (ABNORMAL) Urinalysis reflex to microscopic and culture Urine (12/30/2024 7:40 AM CDT) Color, ur Yellow Yellow Comment:Testing performed by : [facility], [address] [place] [address] Clarity, ur Clear Clear GORAN HELM Comment:Testing performed by : [facility], [address] [place] [address] Specific gravity, ur 1.030 1.003 - 1.030 GORAN HELM Comment:Testing performed by : [facility], [address] [place] [address] pH, urine 5.5 GORAN HELM Comment: Interpretive Data U rine pH is affected by diet, medications, systemic acid-base disturbances, and renal tubular function. pH may affect urinary stone formation. For example, urine pH below 6.0 may help reduce the tendency for calcium phosphate stones and pH greater than 6.0 may reduce the tendency for uric acid stone formation. Source: [employer] Current Interpretive Data was last revised on 2017 Testing performed by: [facility], [address], [place] [address] Protein, ur ql 1+(A) Negative GORAN HELM Comment:Testing performed by : [facility], [address], [place] [address] Glucose, ur ql Negative Negative CERNER BJWCH Comment:Testing performed by : [facility], [address], [place] [address] Ketones, ur Negative Negative CERNER BJWCH Comment:Testing performed by : [facility], [address], [place] [address] Bilirubin, ur Negative Negative CERNER BJWCH Comment:Testing performed by : [facility], [address], [place] [address] Blood, ur Negative Negative CERNER BJWCH Comment:Testing performed by : [facility], [address], [place] [address] Urobilinogen, ur <2.0 <2.0 mg/dL CERNER BJWCH Comment:Testing performed by : [facility], [address], [place] [address] Nitrite, ur Negative Negative CERNER BJWCH Comment:Testing performed by : [facility], [address], [place] [address] Leukocyte esterase, ur Negative Negative CERNER BJWCH Comment:Testing performed by : [facility], [address], [place] [address] UA reflex comment Reflex to microscopic UA will be performed. GORAN BJWCH Comment:Testing performed by : [facility], [address], [place] [address] Urine 12/30/2024 7:40 AM CDT 12/30/2024 8:16 AM CDT us Kemal Guillaume MD LAB MICROBIOLOGY - GEN ERAL ORDERABLES Final Result GORAN YOUSSEFWCH [address] Department [place] [address] * (ABNORMAL) Urinalysis, microscopic only (12/30/2024 7:40 AM CDT) WBC, ur 0-5 0 - 5 /HPF Comment:Testing performed by : [facility], [address], [place] [address] RBC, ur 0-2 0 - 2 /HPF GORAN HELM Comment:Testing performed by : [facility], [address], [place] [address] Mucous, ur Present(A) GORAN HELM Comment:Testing performed by : [facility], [address], [place] [address] Culture Reflex Comment Reflex conditions for urine culture (WBC >10) not met. GORAN HELM Comment:Testing performed by : [facility], [address], [place] [address] Urine 12/30/2024 7:40 AM CDT 12/30/2024 8:16 AM CDT us Kemal Guillaume MD LAB URINE ORDERABLES F inal Result GORAN HELM [address] Department [place] [address] * eGFR (12/30/2024 7:35 AM CDT) eGFR >90 >=60 mL/min/1. 73 m2 Comment: Interpretive Data Reference Interval Normal >/= 90 mL/min/1.73m2 Mildly decreased* 60 - 89 mL/min/1.73m2 Mildly to moderately decreased 45 - 59 mL/min/1.73m2 Moderately to severely decreased 30 - 44 mL/min/1.73m2 Severely decreased 15 - 29 mL/min/1.73m2 Kidney Failure < 15 mL/min/1.73m2 *Relative to young adult level Estimated glomerular filtration rate is determined by the 2020 CKD-EPI equation recommended by the National Kidney Foundation (A Unifying Approach to GFR Estimation: Recommendations of the NKF-ASK Task Force on Reassessing the Inclusion of Race in Diagnosing Kidney Disease, JASN 2020). The CKD-EPI equation should not be used for patients with unstable renal function and has not been validated in children and those over 70. Current interpretive data was last reviewed 2021. Testing performed by: [facility], [address] [place] [address] Blood 12/30/2024 7:35 AM CDT 12/30/2024 7:49 AM CDT Kemal Guillaume MD LAB BLOOD ORDERABLES F inal Result [facility] [address] Department of Laboratories [place], [place] [id number] * (ABNORMAL) Differential, auto (12/30/2024 7:35 AM CDT) Neutrophil abs 4.76 1.50 - 6.50 K/cumm Comment:Testing performed by : [facility], [place] [address] Imm gran abs 0.01 0.00 - 0.10 K/cumm CERNICHOLE BJW Comment:Testing performed by : [place] [address], [address] [place] [address] Lymphocyte abs 0.63(L) 0.80 - 3.30 K/cumm GORAN BJW Comment:Testing performed by : [facility], [address] [place] [address] Monocyte abs 0.45 0.20 - 0.80 K/cumm CERNICHOLE BJWCH Comment:Testing performed by : [place] [address], [address] [place] [address] Eosinophil abs 0.02 0.00 - 0.50 K/cumm GORAN BJWCH Comment:Testing performed by : [place] [address], [address] [place] [address] Basophil abs 0.04 0.00 - 0.10 K/cumm CERNICHOLE BJWCH Comment:Testing performed by : [facility], [address] [place] [address] Neutrophil pct 80.5 % CERNER BJWCH Comment: Interpretive Data Percent cell count reference ranges are not reported, since discordance with absolute values may lead to misinterpretation of CBC data. Current Interpretive Data was last revised on 2017. Testing performed by: [facility], [facility], [address] [place] [address] Imm gran pct 0.2 % CERNER BJWCH Comment: Interpretive Data Percent cell count reference ranges are not reported, since discordance with absolute values may lead to misinterpretation of CBC data. Current Interpretive Data was last revised on 2017. Testing performed by: [facility], [facility], [address] [place] [address] Lymphocyte pct 10.7 % CERNER BJWCH Comment: Interpretive Data Percent cell count reference ranges are not reported, since discordance with absolute values may lead to misinterpretation of CBC data. Current Interpretive Data was last revised on 2017. Testing performed by: [facility], [facility], [address] [place] [address] Monocyte pct 7.6 % CERNER BJWCH Comment: Interpretive Data Percent cell count reference ranges are not reported, since discordance with absolute values may lead to misinterpretation of CBC data. Current Interpretive Data was last revised on 2017. Testing performed by: [facility], [facility], [address] [place] [address] Eosinophil pct 0.3 % CERNER BJWCH Comment: Interpretive Data Percent cell count reference ranges are not reported, since discordance with absolute values may lead to misinterpretation of CBC data. Current Interpretive Data was last revised on 2017. Testing performed by: [facility], [facility], [address] [place] [address] Basophil pct 0.7 % CERNER BJWCH Comment: Interpretive Data Percent cell count reference ranges are not reported, since discordance with absolute values may lead to misinterpretation of CBC data. Current Interpretive Data was last revised on 2017. Testing performed by: [facility], [facility], [address] [place] [address] Blood 12/30/2024 7:35 AM CDT 12/30/2024 7:40 AM CDT us Kemal Guillaume MD LAB BLOOD ORDERABLES F inal Result [facility] [address] [facility]. Department [place] [address] * CBC with auto differential (12/30/2024 7:35 AM CDT) WBC 5.91 3.80 - 9.90 K/cumm Comment:Testing performed by : [place] [address], [address] [place] [address] Hgb 13.4 13.0 - 17.5 g/dL GORAN RASHEED Comment:Testing performed by : [place] [address], [address] [place] [address] Hct 40.6 38.9 - 50.3 % [facility] Comment:Testing performed by : [place] [address], [address] [place] [address] Plt 208 150 - 400 K/cumm GORAN HELM Comment:Testing performed by : [facility], [address] [place] [address] MPV 10.3 9.1 - 12.3 fL GORAN HELM Comment:Testing performed by : [place] [address], [address] [place] [address] RBC 4.60 4.30 - 5.80 M/cumm GORAN HELM Comment:Testing performed by : [facility], [address] [place] [address] MCV 88.3 81.3 - 96.4 fL GORAN RASHEEDCH Comment:Testing performed by : [facility], [address] [place] [address] MCH 29.1 27.1 - 33.3 pg GORAN HELM Comment:Testing performed by : [facility], [facility], [address] [place] [address] MCHC 33.0 32.3 - 35.7 g/dL GORAN HELM Comment:Testing performed by : [facility], [facility], [address] [place] [address] RDW CV 11.9 11.1 - 14.9 % GORAN HELM Comment:Testing performed by : [facility], [facility], [address] [place] [address] RDW SD 38.1 35.7 - 48.1 fL GORAN HELM Comment:Testing performed by : [facility], [facility], [address] [place] [address] ANC Prelim 4.76 1.50 - 6.50 K/cumm GORAN HELM Comment: Interpretive Data The rapid ANC is a preliminary automated count and may vary from the final ANC (Neut Abs) reported in the WBC differential that follows. Current interpretive data was last revised 2024. Testing performed by: [facility], [facility], [address] [place] [address] Blood 12/30/2024 7:35 AM CDT 12/30/2024 7:40 AM CDT us Kemal Guillaume MD LAB BLOOD ORDERABLES F inal Result [facility] [address] Department [place] [address] * Uric acid (12/30/2024 7:35 AM CDT) Uric acid 3.9 3.0 - 8.0 mg/dL Comment:Testing performed by : [facility], [address] [place] [address] Blood 12/30/2024 7:35 AM CDT 12/30/2024 7:49 AM CDT Kemal Guillaume MD LAB BLOOD ORDERABLES F inal Result Performing Organization Address [facility] de Phone Number [facility] [address] [facility] [place]. [facility] [place] [address] * (ABNORMAL) Triglycerides (12/30/2024 7:35 AM CDT) Triglycerides 168(H) <=149 mg/dL Comment: Interpretive Data Ages < or = 9 years Acceptable: <75 mg/dL Borderline high: 75-99 mg/dL High: >or= 100 mg/dL Ages 10 to 20 years Acceptable: <90 mg/dL Borderline high: 90-129 mg/dL High: >or= 130 mg/dL Ages > or = 20 years Desirable: <150 mg/dL Borderline high: 150-199 mg/dL High: 200-499 mg/dL Very high: >or= 499 mg/dL Literature References: 1. Expert Panel on Integrated Guidelines for Cardiovascular Health and Risk Reduction in Children and Adolescents. Pediatrics 2011;128:S213 2. NCEP Expert Panel. Circulation 2004;110:227 Current Interpretive Data was last revised on 2018. Testing performed by: [facility], [address] [address] Blood 12/30/2024 7:35 AM CDT 12/30/2024 7:49 AM CDT Kemal Guillaume MD LAB BLOOD ORDERABLES F inal Result Performing Organization Address [facility] de Phone Number GORAN YOUSSEFCH [address] [facility] [place] [address] * (ABNORMAL) PSA diagnostic (12/30/2024 7:35 AM CDT) PSA-Total 12.46(H) <=5.40 ng/mL Comment: Interpretive Data AGE SEX REFERENCE INTERVAL 0 minutes-150 years Female None 0 minutes-49 years Male None 50-59 years Male 0-3.90 60-69 years Male 0-5.40 70-79 years Male 0-6.20 80-150 years Male 0-6.20 The Josh PSA Total assay procedure was used. Results from different manufacturers or methods may not be comparable. Serial testing should be performed using the same method. Current interpretive data last revised 22. Testing performed by: [facility], [address] [place] [address] Blood 12/30/2024 7:35 AM CDT 12/30/2024 7:49 AM CDT Kemal Guillaume MD LAB BLOOD ORDERABLES F inal Result [facility] YOUSSEFCH [address] [facility] [place] [address] * Phosphorus (12/30/2024 7:35 AM CDT) Phosphorus, pl 3.7 2.3 - 4.5 mg/dL Comment:Testing performed by : [facility], [address] [place] [place] [address] Blood 12/30/2024 7:35 AM CDT 12/30/2024 7:49 AM CDT Kemal Guillaume MD LAB BLOOD ORDERABLES F inal Result GORAN BJWCH [address] [facility] [place] [address] * Lactate dehydrogenase (LD) (12/30/2024 7:35 AM CDT) Lactate dehydrogenase (LDH) 141 100 - 250 Units/L Comment:Testing performed by : [facility], [address] [place] [address] Blood 12/30/2024 7:35 AM CDT 12/30/2024 7:49 AM CDT Kemal Guillaume MD LAB BLOOD ORDERABLES F inal Result Performing Organization Address [facility] Co de Phone Number GORAN YOUSSEFWCH [address] [facility] [place] [address] * Gamma GT (12/30/2024 7:35 AM CDT) GGT 15 10 - 50 Units/L Comment:Testing performed by : [facility], [address] [place] [address] Blood 12/30/2024 7:35 AM CDT 12/30/2024 7:49 AM CDT Kemal Guillaume MD LAB BLOOD ORDERABLES F inal Result Performing Organization Address [facility] de Phone Number GORAN BJWCH [address] Department [place] [address] * (ABNORMAL) Creatine kinase (CK), total (12/30/2024 7:35 AM CDT) Pathologist [facility] CK 25(L) 40 - 300 Units/L Comment:Testing performed by : [facility], [address] [place] [address] Blood 12/30/2024 7:35 AM CDT 12/30/2024 7:49 AM CDT Kemal Guillaume MD LAB BLOOD ORDERABLES F inal Result Performing Organization Address [facility] de Phone Number GORAN BJWCH [address] [facility] [place] [address] * Comprehensive metabolic panel (12/30/2024 7:35 AM CDT) Pathologist [facility] Sodium 143 135 - 145 mmol/L Comment:Testing performed by : [facility], [address] [place] [address] Potassium, pl 4.3 3.3 - 4.9 mmol/L GORAN RASHEEDCH Comment:Testing performed by : [facility], [address], [place] [address] Chloride 103 97 - 110 mmol/L CERNER BJWCH Comment:Testing performed by : [facility], [address], [place] [address] CO2 30 22 - 32 mmol/L CERNER BJWCH Comment:Testing performed by : [facility], [address], [place] [address] Anion gap 10 2 - 15 mmol/L CERNER BJWCH Comment:Testing performed by : [facility], [address], [place] [address] BUN 19 6 - 25 mg/dL CERNER BJWCH Comment:Testing performed by : [facility], [address], [place] [address] Creatinine 0.82 0.80 - 1.30 mg/dL CERNER BJWCH Comment:Testing performed by : [facility], [address], [place] [address] Glucose 169 70 - 199 mg/dL CERNER BJWCH Comment: Interpretive Data Fasting glucose >/= 126 mg/dl is diagnostic for diabetes. Fasting is defined as no caloric intake for at least 8 hours. Fasting glucose between 100 mg/dl to 125 mg/dl is diagnostic of prediabetes. In a patient with classic symptoms of hyperglycemia or hyperglycemic crisis, a random glucose >/= 200 mg/dl is diagnostic for diabetes. In the absence of unequivocal hyperglycemia, results should be confirmed by repeat testing. The classification and Diagnosis of Diabetes Diabetes Care 2021; 46: S19-S40. Current interpretive data was last revised 2022. Testing performed by: [facility], [address], [place] [address] Calcium 9.9 8.5 - 10.3 mg/dL CERNER BJWCH Comment:Testing performed by : [facility], [address], [place] [address] Bilirubin, total 0.3 0.1 - 1.2 mg/dL CERNER BJWCH Comment:Testing performed by : [facility], [address], [place] [address] Protein, pl 6.8 6.5 - 8.5 g/dL CERNICHOLE BJWCH Comment:Testing performed by : [facility], [address], [place] [address] Albumin 4.1 3.5 - 5.0 g/dL CERNICHOLE BJWCH Comment:Testing performed by : [facility], [address], [place] [address] Alk phos 72 40 - 130 Units/L CERNICHOLE BJWCH Comment:Testing performed by : [facility], [address], [place] [address] ALT 18 7 - 55 Units/L CERNICHOLE BJWCH Comment:Testing performed by : [facility], [address], [place] [address] AST 23 10 - 50 Units/L GORAN BJWCH Comment:Testing performed by : [facility], [address], [place] [address] Blood 12/30/2024 7:35 AM CDT 12/30/2024 7:49 AM CDT us Kemal Guillaume MD LAB BLOOD ORDERABLES F inal Result [facility] [address] Department [place] [address] * (ABNORMAL) Urinalysis reflex to microscopic and culture Urine (12/09/2024 7:45 AM CDT) Color, ur Yellow Yellow Comment:Testing performed by : [facility], [address], [place] [address] Clarity, ur Clear Clear CERNICHOLE BJWCH Comment:Testing performed by : [facility], [address], [place] [address] Specific gravity, ur 1.029 1.003 - 1.030 GORAN BJWCH Comment:Testing performed by : [facility], [address], [place] [address] pH, urine 5.5 CERNICHOLE BJWCH Comment: Interpretive Data U rine pH is affected by diet, medications, systemic acid-base disturbances, and renal tubular function. pH may affect urinary stone formation. For example, urine pH below 6.0 may help reduce the tendency for calcium phosphate stones and pH greater than 6.0 may reduce the tendency for uric acid stone formation. Source: [facility] Current Interpretive Data was last revised on 2017 Testing performed by: [facility], [address], [place] [address] Protein, ur ql 1+(A) Negative CERNER BJWCH Comment:Testing performed by : [facility], [address], [place] [address] Glucose, ur ql Negative Negative CERNER BJWCH Comment:Testing performed by : [facility], [address], [place] [address] Ketones, ur Negative Negative CERNER BJWCH Comment:Testing performed by : [facility], [address], [place] [address] Bilirubin, ur Negative Negative CERNER BJWCH Comment:Testing performed by : [facility], [address], [place] [address] Blood, ur Negative Negative CERNER BJWCH Comment:Testing performed by : [facility], [address], [place] [address] Urobilinogen, ur <2.0 <2.0 mg/dL CERNER BJWCH Comment:Testing performed by : [facility], [address], [place] [address] Nitrite, ur Negative Negative CERNER BJWCH Comment:Testing performed by : [facility], [address], [place] [address] Leukocyte esterase, ur Negative Negative CERNER BJWCH Comment:Testing performed by : [facility], [address], [place] [address] UA reflex comment Reflex to microscopic UA will be performed. CERNER BJWCH Comment:Testing performed by : [facility], [address], [place] [address] Urine 12/09/2024 7:45 AM CDT 12/09/2024 8:11 AM CDT Kemal Guillaume MD LAB MICROBIOLOGY - GEN ERAL ORDERABLES Final Result Performing Organization Address [facility] Co de Phone Number GORAN RASHEEDCH [address] Department [place] [address] * (ABNORMAL) Urinalysis, microscopic only (12/09/2024 7:45 AM CDT) WBC, ur 0-5 0 - 5 /HPF Comment:Testing performed by : [facility], [address], [place] [address] RBC, ur 3-5(A) 0 - 2 /HPF CERNER BJWCH Comment:Testing performed by : [facility], [address], [place] [address] Epithelial cells, squamous, ur 1-5 0 - 5 /HPF CERNER BJWCH Comment:Testing performed by : [facility], [address], [place] [address] Mucous, ur Present(A) CERNER BJWCH Comment:Testing performed by : [facility], [address], [place] [address] Culture Reflex Comment Reflex conditions for urine culture (WBC >10) not met. CERNER BJWCH Comment:Testing performed by : [facility], [address], [place] [address] Urine 12/09/2024 7:45 AM CDT 12/09/2024 8:11 AM CDT Kemal Guillaume MD LAB URINE ORDERABLES F inal Result Performing Organization Address [facility]/ZIP Co de Phone Number GORAN YOUSSEFWCH [address] [facility] [place] [address] * eGFR (12/09/2024 7:33 AM CDT) eGFR >90 >=60 mL/min/1. 73 m2 Comment: Interpretive Data Reference Interval Normal >/= 90 mL/min/1.73m2 Mildly decreased* 60 - 89 mL/min/1.73m2 Mildly to moderately decreased 45 - 59 mL/min/1.73m2 Moderately to severely decreased 30 - 44 mL/min/1.73m2 Severely decreased 15 - 29 mL/min/1.73m2 Kidney Failure < 15 mL/min/1.73m2 *Relative to young adult level Estimated glomerular filtration rate is determined by the 2020 CKD-EPI equation recommended by the National Kidney Foundation (A Unifying Approach to GFR Estimation: Recommendations of the NKF-ASK Task Force on Reassessing the Inclusion of Race in Diagnosing Kidney Disease, JASN 2020). The CKD-EPI equation should not be used for patients with unstable renal function and has not been validated in children and those over 70. Current interpretive data was last reviewed 2021. Testing performed by: [facility], [address] [place] [address] Blood 12/09/2024 7:33 AM CDT 12/09/2024 7:49 AM CDT us Kemal Guillaume MD LAB BLOOD ORDERABLES F inal Result [facility] [address] Department [place] [address] * (ABNORMAL) Differential, auto (12/09/2024 7:33 AM CDT) Neutrophil abs 2.8 1.5 - 6.5 K/cumm Comment:Testing performed by : [facility], [address] [place] [address] Imm gran abs 0.0 0.0 - 0.1 K/cumm GORAN HELM Comment:Testing performed by : [facility], [address] [place] [address] Lymphocyte abs 0.6(L) 0.8 - 3.3 K/cumm GORAN HELM Comment:Testing performed by : [facility], [address], [place] [address] Monocyte abs 0.3 0.2 - 0.8 K/cumm CERNER BJWCH Comment:Testing performed by : [facility], [address], [place] [address] Eosinophil abs 0.0 0.0 - 0.5 K/cumm CERNER BJWCH Comment:Testing performed by : [facility], [address], [place] [address] Basophil abs 0.0 0.0 - 0.1 K/cumm CERNER BJWCH Comment:Testing performed by : [facility], [address], [place] [address] Neutrophil pct 73.8 % CERNER BJWCH Comment: Interpretive Data Percent cell count reference ranges are not reported, since discordance with absolute values may lead to misinterpretation of CBC data. Current Interpretive Data was last revised on 2017. Testing performed by: [facility], [address], [place] [address] Imm gran pct 0.3 % CERNER BJWCH Comment: Interpretive Data Percent cell count reference ranges are not reported, since discordance with absolute values may lead to misinterpretation of CBC data. Current Interpretive Data was last revised on 2017. Testing performed by: [facility], [address], [place] [address] Lymphocyte pct 16.0 % CERNER BJWCH Comment: Interpretive Data Percent cell count reference ranges are not reported, since discordance with absolute values may lead to misinterpretation of CBC data. Current Interpretive Data was last revised on 2017. Testing performed by: [facility], [address], [place] [address] Monocyte pct 8.4 % CERNER BJWCH Comment: Interpretive Data Percent cell count reference ranges are not reported, since discordance with absolute values may lead to misinterpretation of CBC data. Current Interpretive Data was last revised on 2017. Testing performed by: [facility], [address], [place] [address] Eosinophil pct 1.0 % CERNER BJWCH Comment: Interpretive Data Percent cell count reference ranges are not reported, since discordance with absolute values may lead to misinterpretation of CBC data. Current Interpretive Data was last revised on 2017. Testing performed by: [facility], [address], [place] [address] Basophil pct 0.5 % GORAN HELM Comment: Interpretive Data Percent cell count reference ranges are not reported, since discordance with absolute values may lead to misinterpretation of CBC data. Current Interpretive Data was last revised on 2017. Testing performed by: [facility], [address], [place] [address] Blood 12/09/2024 7:33 AM CDT 12/09/2024 7:34 AM CDT Kemal Guillaume MD LAB BLOOD ORDERABLES F inal Result GORAN HELM [address] Department [place] [address] * (ABNORMAL) CBC with auto differential (12/09/2024 7:33 AM CDT) WBC 3.8 3.8 - 9.9 K/cumm Comment:Testing performed by : [facility], [address], [place] [address] Hgb 13.5 13.0 - 17.5 g/dL GORAN HELM Comment:Testing performed by : [facility], [address], [place] [address] Hct 41.9 38.9 - 50.3 % GORAN HELM Comment:Testing performed by : [facility], [address], [place] [address] Plt 184 150 - 400 K/cumm GORAN HELM Comment:Testing performed by : [facility], [address], [place] [address] MPV 11.4 9.1 - 12.3 fL GORAN HELM Comment:Testing performed by : [facility], [address], [place] [address] RBC 4.67 4.30 - 5.80 M/cumm [facility] Comment:Testing performed by : [facility], [address], [place] [address] MCV 89.7 81.3 - 96.4 fL GORAN BJWCH Comment:Testing performed by : [facility], [address], [place] [address] MCH 28.9 27.1 - 33.3 pg CERNICHOLE BJWCH Comment:Testing performed by : [facility], [address], [place] [address] MCHC 32.2(L) 32.3 - 35.7 g/dL [facility] Comment:Testing performed by : [facility], [address], [place] [address] RDW CV 12.0 11.1 - 14.9 % [facility]AN [facility] Comment:Testing performed by : [facility], [address], [place] [address] RDW SD 39.2 35.7 - 48.1 fL [facility] Comment:Testing performed by : [facility], [address], [place] [address] NRBC abs 0.00 0.00 - 0.01 K/cumm [facility] Comment:Testing performed by : [facility], [address], [place] [address] Blood 12/09/2024 7:33 AM CDT 12/09/2024 7:34 AM CDT us Kemal Guillaume MD LAB BLOOD ORDERABLES F inal Result GORAN RASHEED [address] Department [place] [address] * Uric acid (12/09/2024 7:33 AM CDT) Pathologist [facility] Uric acid 3.5 3.0 - 8.0 mg/dL Comment:Testing performed by : [facility], [address] [place] [address] Blood 12/09/2024 7:33 AM CDT 12/09/2024 7:49 AM CDT Kemal Guillaume MD LAB BLOOD ORDERABLES F inal Result Performing Organization Address [facility] Co de Phone Number GORAN YOUSSEFCH [phone] [facility] [place] [address] * Triglycerides (12/09/2024 7:33 AM CDT) Triglycerides 128 <=149 mg/dL Comment: Interpretive Data Ages < or = 9 years Acceptable: <75 mg/dL Borderline high: 75-99 mg/dL High: >or= 100 mg/dL Ages 10 to 20 years Acceptable: <90 mg/dL Borderline high: 90-129 mg/dL High: >or= 130 mg/dL Ages > or = 20 years Desirable: <150 mg/dL Borderline high: 150-199 mg/dL High: 200-499 mg/dL Very high: >or= 499 mg/dL Literature References: 1. Expert Panel on Integrated Guidelines for Cardiovascular Health and Risk Reduction in Children and Adolescents. Pediatrics 2011;128:S213 2. NCEP Expert Panel. Circulation 2004;110:227 Current Interpretive Data was last revised on 2018. Testing performed by: [facility], [address] [place] [address] Blood 12/09/2024 7:33 AM CDT 12/09/2024 7:49 AM CDT Kemal Guillaume MD LAB BLOOD ORDERABLES F inal Result Performing Organization Address [facility] Co de Phone Number GORAN BJWCH [phone] [address] [facility] [place] [address] * (ABNORMAL) PSA diagnostic (12/09/2024 7:33 AM CDT) PSA-Total 11.13(H) <=5.40 ng/mL Comment: Interpretive Data AGE SEX REFERENCE INTERVAL 0 minutes-150 years Female None 0 minutes-49 years Male None 50-59 years Male 0-3.90 60-69 years Male 0-5.40 70-79 years Male 0-6.20 80-150 years Male 0-6.20 The Josh PSA Total assay procedure was used. Results from different manufacturers or methods may not be comparable. Serial testing should be performed using the same method. Current interpretive data last revised 22. Testing performed by: [facility], [address] [place] [place] [address] Blood 12/09/2024 7:33 AM CDT 12/09/2024 7:49 AM CDT Kemal Guillaume MD LAB BLOOD ORDERABLES F inal Result Performing Organization Address [facility] Co de Phone Number GORAN YOUSSEFCH [phone] [facility] [place]. [facility] [place] [address] * Phosphorus (12/09/2024 7:33 AM CDT) [facility] Phosphorus, pl 3.5 2.3 - 4.5 mg/dL Comment:Testing performed by : [facility], [address] [place] [address] Blood 12/09/2024 7:33 AM CDT 12/09/2024 7:49 AM CDT Kemal Guillaume MD LAB BLOOD ORDERABLES F inal Result GORAN BJCH [address] [employer] [address]. [facility] [place] [address] * Lactate dehydrogenase (LD) (12/09/2024 7:33 AM CDT) [facility] Lactate dehydrogenase (LDH) 135 100 - 250 Units/L Comment:Testing performed by : [facility], [address] [place] [address] Blood 12/09/2024 7:33 AM CDT 12/09/2024 7:49 AM CDT Kemal Guillaume MD LAB BLOOD ORDERABLES F inal Result Performing Organization Address [facility] Co de Phone Number GROAN BJCH [phone] [address] [facility] [place] [address] * Gamma GT (12/09/2024 7:33 AM CDT) GGT 15 10 - 50 Units/L Comment:Testing performed by : [facility], [address] [place], [place] [address] [address] Blood 12/09/2024 7:33 AM CDT 12/09/2024 7:49 AM CDT Kemal Guillaume MD LAB BLOOD ORDERABLES F inal Result Performing Organization Address [facility] Co de Phone Number [facility] BJ[facility] [phone] [place] [address] * (ABNORMAL) Creatine kinase (CK), total (12/09/2024 7:33 AM CDT) Pathologist [facility] CK 25(L) 40 - 300 Units/L Comment:Testing performed by : [facility], [id number] [place] [address] Blood 12/09/2024 7:33 AM CDT 12/09/2024 7:49 AM CDT Kemal Guillaume MD LAB BLOOD ORDERABLES F inal Result Performing Organization Address [facility] Co de Phone Number [facility] BJWCH [phone] [place] [address] * Comprehensive metabolic panel (12/09/2024 7:33 AM CDT) Pathologist [facility] Sodium 144 135 - 145 mmol/L Comment:Testing performed by : [facility], [address], [place] [address] Potassium, pl 4.0 3.3 - 4.9 mmol/L CERNER BJWCH Comment:Testing performed by : [facility], [address], [place] [address] Chloride 105 97 - 110 mmol/L CERNER BJWCH Comment:Testing performed by : [facility], [address], [place] [address] CO2 29 22 - 32 mmol/L CERNER BJWCH Comment:Testing performed by : [facility], [address], [place] [address] Anion gap 10 2 - 15 mmol/L CERNER BJWCH Comment:Testing performed by : [facility], [address], [place] [address] BUN 17 6 - 25 mg/dL CERNER BJWCH Comment:Testing performed by : [facility], [address], [place] [address] Creatinine 0.85 0.80 - 1.30 mg/dL CERNER BJWCH Comment:Testing performed by : [facility], [address], [place] [address] Glucose 139 70 - 199 mg/dL CERNER BJWCH Comment: Interpretive Data Fasting glucose >/= 126 mg/dl is diagnostic for diabetes. Fasting is defined as no caloric intake for at least 8 hours. Fasting glucose between 100 mg/dl to 125 mg/dl is diagnostic of prediabetes. In a patient with classic symptoms of hyperglycemia or hyperglycemic crisis, a random glucose >/= 200 mg/dl is diagnostic for diabetes. In the absence of unequivocal hyperglycemia, results should be confirmed by repeat testing. The classification and Diagnosis of Diabetes Diabetes Care 2021; 46: S19-S40. Current interpretive data was last revised 2022. Testing performed by: [facility], [address], [place] [address] Calcium 9.6 8.5 - 10.3 mg/dL CERNER BJWCH Comment:Testing performed by : [facility], [address], [place] [address] Bilirubin, total 0.2 0.1 - 1.2 mg/dL CERNER BJWCH Comment:Testing performed by : [facility], [address], [place] [address] Protein, pl 7.0 6.5 - 8.5 g/dL CERNER BJWCH Comment:Testing performed by : [facility], [address], [place] [address] Albumin 4.2 3.5 - 5.0 g/dL CERNER BJWCH Comment:Testing performed by : [facility], [address], [place] [address] Alk phos 75 40 - 130 Units/L CERNER BJWCH Comment:Testing performed by : [facility], [address], [place] [address] ALT 18 7 - 55 Units/L CERNER BJWCH Comment:Testing performed by : [facility], [address], [place] [address] AST 21 10 - 50 Units/L CERNER BJWCH Comment:Testing performed by : [facility], [address], [place] [address] Blood 12/09/2024 7:33 AM CDT 12/09/2024 7:49 AM CDT Kemal Guillaume MD LAB BLOOD ORDERABLES F inal Result [facility] [address] Department [place] [address] * NM Bone Imaging Whole Body (12/04/2024 12:46 PM CDT) Anatomical Region Laterality Modality N/A Positron Emissio n Tomography (PET) 12/04/2024 2:02 PM CDT Impressions 12/04/2024 3:09 PM CDT Stable osseous metastasis involving posterior right fifth & seventh rib with resolution of previously seen traumatic tracer avidity. No new foci of osseous metastasis seen. Dictated by: Marco Velazquez M.D. The radiology attending physician has personally reviewed this study, and had reviewed and/or edited this written report and agrees with it. Electronically signed by: Jennifer Madison M.D. Narrative 12/04/2024 3:09 PM CDT EXAMINATION: BONE SCINTIGRAPHY (WHOLE-BODY) DATE OF STUDY: 12/04/2024 RADIOPHARMACEUTICAL: 21.4 mCi Tc-99m MDP i.v. HISTORY: 69-year-old male with Sid 4+3 prostate cancer status post radical prostatectomy (2009). Recurrent disease was treated with salvage radiation and he is currently on androgen deprivation therapy. PSA is downtrending 10.4 (11/18/2024) FINDINGS: Delayed whole-body scintigrams were obtained. Prior nuclear medicine studies used for comparison: Comparison bone scan from 09/30/2024., With reference made to the prior 09/29/2024 PSMA-PET/CT Other radiographic comparisons: Comparison same day CT from 12/04/2024. Stable osseous metastasis involving the right fifth rib. Faint scintigraphic correlate for known lateral right 7th rib lesion. Interval resolution of previously seen posttraumatic uptake in the right 11th rib consistent with healing fracture. Stable degenerative uptake is seen in the Procedure Note Jennifer Madison MD - 12/04/2024 EXAMINATION: BONE SCINTIGRAPHY (WHOLE-BODY) DATE OF STUDY: 12/04/2024 RADIOPHARMACEUTICAL: 21.4 mCi Tc-99m MDP i.v. HISTORY: 69-year-old male with Sid 4+3 prostate cancer status post radical prostatectomy (2009). Recurrent disease was treated with salvage radiation and he is currently on androgen deprivation therapy. PSA is downtrending 10.4 (11/18/2024) FINDINGS: Delayed whole-body scintigrams were obtained. Prior nuclear medicine studies used for comparison: Comparison bone scan from 09/30/2024., With reference made to the prior 09/29/2024 PSMA-PET/CT Other radiographic comparisons: Comparison same day CT from 12/04/2024. Stable osseous metastasis involving the right fifth rib. Faint scintigraphic correlate for known lateral right 7th rib lesion. Interval resolution of previously seen posttraumatic uptake in the right 11th rib consistent with healing fracture. Stable degenerative uptake is seen in the IMPRESSION: Stable osseous metastasis involving posterior right fifth & seventh rib with resolution of previously seen traumatic tracer avidity. No new foci of osseous metastasis seen. Dictated by: Marco Velazquez M.D. The radiology attending physician has personally reviewed this study, and had reviewed and/or edited this written report and agrees with it. Electronically signed by: Jennifer Madison M.D. [facility] Maxx Guillaume MD IMG NM PROCEDURES Vanessa l Result * CT Chest Abdomen Pelvis W Contrast (12/04/2024 10:01 AM CDT) Anatomical Region Laterality Modality Body N/A Computed Tomogra phy 12/04/2024 10:5 9 AM CDT Impressions 12/04/2024 1:17 PM CDT 1. No evidence of disease progression. 2. Unchanged distribution of enhancing soft tissue extending from the right pelvic side wall through the perineum with grossly similar involvement of the bladder, rectum, urethra and anus, which overall enhances less and is less conspicuous from the prior exam. 3. Decreased inguinal lymphadenopathy. Dictated by: Noel Glover MD The radiology attending physician has personally reviewed this study, and had reviewed and/or edited this written report and agrees with it. Electronically signed by: Matteo Navas M.D. Narrative 12/04/2024 1:17 PM CDT EXAMINATION: Computed tomography of the chest, abdomen and pelvis with intravenous contrast HISTORY: 69-year-old male with prostate cancer TECHNIQUE: Transaxial computed tomographic images of the chest, abdomen and pelvis were obtained with intravenous contrast according to the standard protocol after the uneventful administration of 100 mL Opti-Ray 350 intravenous contrast. COMPARISON: CT 09/30/2024 FINDINGS: Chest: The trachea and central airways are clear. No pulmonary consolidation, pleural effusion, or pneumothorax. Stable scattered calcified granulomas. 5 mm right lower lobe rosenda-fissural nodule (series 3, image 97), unchanged from prior and likely representing a intrafissural lymph node. The previously seen left lower lobe pulmonary nodule has resolved and was likely infectious or inflammatory in etiology. No new or enlarging pulmonary nodule. The heart size is normal. No pericardial effusion. There are multivessel coronary artery calcifications. The thoracic aorta and main pulmonary artery are normal in caliber. The thyroid is unremarkable. No supraclavicular, axillary, mediastinal, or hilar lymphadenopathy. The esophagus is unremarkable. Abdomen/Pelvis: Unchanged small cyst within the hepatic dome. No suspicious liver lesion. No biliary ductal dilation. The portal veins, superior mesenteric vein, and splenic vein are patent. The gallbladder is normal. There are calcified splenic granulomas. The pancreas and right adrenal gland are normal. Redemonstrated left adrenal adenoma. Left renal cyst and bilateral too small to characterize hypoattenuating lesions in both kidneys. No hydronephrosis. The stomach and duodenal sweep are normal. The small and large bowel are normal in caliber. There is colonic diverticulosis without evidence of diverticulitis. No ascites or pneumoperitoneum. The urinary bladder is decompressed. The prostate is surgically absent. There is unchanged distribution of enhancing soft tissue edema from the right pelvic sidewall through the pericardium which appears less avidly enhancing and less conspicuous on today's exam, which may represent positive treatment response. The previously seen inguinal lymphadenopathy is improved. Mesorectal lymphadenopathy appears unchanged. Partially imaged anterior cervical spinal instrumentation. 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 Increased sclerosis of a right posterior 5th rib lesion. Additional scattered subtle sclerotic lesions, such as a right anterolateral 7th rib lesion do not appear significantly changed. Procedure Note Matteo Navas MD - 12/04/2024 EXAMINATION: Computed tomography of the chest, abdomen and pelvis with intravenous contrast HISTORY: 69-year-old male with prostate cancer TECHNIQUE: Transaxial computed tomographic images of the chest, abdomen and pelvis were obtained with intravenous contrast according to the standard protocol after the uneventful administration of 100 mL Opti-Ray 350 intravenous contrast. COMPARISON: CT 09/30/2024 FINDINGS: Chest: The trachea and central airways are clear. No pulmonary consolidation, pleural effusion, or pneumothorax. Stable scattered calcified granulomas. 5 mm right lower lobe rosenda-fissural nodule (series 3, image 97), unchanged from prior and likely representing a intrafissural lymph node. The previously seen left lower lobe pulmonary nodule has resolved and was likely infectious or inflammatory in etiology. No new or enlarging pulmonary nodule. The heart size is normal. No pericardial effusion. There are multivessel coronary artery calcifications. The thoracic aorta and main pulmonary artery are normal in caliber. The thyroid is unremarkable. No supraclavicular, axillary, mediastinal, or hilar lymphadenopathy. The esophagus is unremarkable. Abdomen/Pelvis: Unchanged small cyst within the hepatic dome. No suspicious liver lesion. No biliary ductal dilation. The portal veins, superior mesenteric vein, and splenic vein are patent. The gallbladder is normal. There are calcified splenic granulomas. The pancreas and right adrenal gland are normal. Redemonstrated left adrenal adenoma. Left renal cyst and bilateral too small to characterize hypoattenuating lesions in both kidneys. No hydronephrosis. The stomach and duodenal sweep are normal. The small and large bowel are normal in caliber. There is colonic diverticulosis without evidence of diverticulitis. No ascites or pneumoperitoneum. The urinary bladder is decompressed. The prostate is surgically absent. There is unchanged distribution of enhancing soft tissue edema from the right pelvic sidewall through the pericardium which appears less avidly enhancing and less conspicuous on today's exam, which may represent positive treatment response. The previously seen inguinal lymphadenopathy is improved. Mesorectal lymphadenopathy appears unchanged. Partially imaged anterior cervical spinal instrumentation. 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 Increased sclerosis of a right posterior 5th rib lesion. Additional scattered subtle sclerotic lesions, such as a right anterolateral 7th rib lesion do not appear significantly changed. IMPRESSION: 1. No evidence of disease progression. 2. Unchanged distribution of enhancing soft tissue extending from the right pelvic side wall through the perineum with grossly similar involvement of the bladder, rectum, urethra and anus, which overall enhances less and is less conspicuous from the prior exam. 3. Decreased inguinal lymphadenopathy. Dictated by: Noel Glover MD The radiology attending physician has personally reviewed this study, and had reviewed and/or edited this written report and agrees with it. Electronically signed by: Matteo Navas M.D. 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
--- OUTSIDE RECORDS SUMMARY | 2025-02-23 17:07 | XMS_ITS | Clinical Summary ---
Author Organization [facility] Address [address] [place] [address] Care Team Providers Care Care Transition Mgr Name Role Phone Arvind Castellanos MD Primary Care Provider [phone] Patrick Perez MD Unavailable [phone] Allergies Active Allergy Reactions Criticality Noted Date [...] NIGHT 90 tablet 3 07/31/20 24 Active [facility] brimonidine 0.2 % (/AR [id number]) 0.2 % ophthalmic solution Administer 1 drop into both eyes as directed 1 drop to each eye 10 minutes prior to each infusion. Remember to bring bottle to each infusion. Active [facility] Systane Complete PF (/AR [id number]) drops eye drops Administer 1 drop into both eyes every 3 (three) hours Instill one drop into each eye at a minimum of 8 times each day. Active [facility] Systane Nighttime Lubricant (/AR [id number]) 94-3 % ointment eye ointment Apply 1 [...] Prostate cancer 03/26/2021 Bilateral hip pain 04/11/2018 Encounters Date Type Department Care Team Description 02/23/2025 Telephone [facility] Oncology [address] [facility] [facility] [address] [place] [address] Sharmin De La Vega RN 02/12/2025 10:45 AM CDT Office Visit [facility] 6th [place] [address] Puma Galindo MD Research exam (Primary Dx) 02/10/2025 10:45 AM CDT Infusion [facility] [address] [facility] [place] [address] 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); Prostate cancer (HCC) 02/10/2025 10:20 AM CDT Office Visit [facility] Oncology [address] [facility] [address] [place] [phone] Gladis Savage NP 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); Prostate cancer (HCC) 02/10/2025 9:15 AM CDT Lab [facility] [address] [facility] [place] [address] Prostate cancer (HCC); 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) 02/08/2025 8:09 AM CDT - 02/08/2025 11:59 PM CDT Hospital Encounter [facility] [address], [place] [address] Prostate cancer (HCC); 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); 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) Discharge Disposition: Discharge to home or self care 02/08/2025 8:09 AM CDT - 02/08/2025 11:59 PM CDT Hospital Encounter [facility] [address], [place] [address] Discharge Disposition: Discharge to home or self care 02/08/2025 8:08 AM CDT - 02/08/2025 11:59 PM CDT Hospital Encounter [facility] [address], [place] [address] Prostate cancer (HCC); 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 [address] [place] [address] Discharge Disposition: Discharge to home or self care 02/01/2025 10:58 AM CDT - 02/01/2025 11:59 PM CDT Hospital Encounter 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); Prostate cancer (HCC) 01/20/2025 7:45 AM CDT Lab [facility] at [address] [place] [address] Prostate cancer (HCC); 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) 01/20/2025 Orders Only [facility] [address] [place] [address] Radha Kim [facility] 01/12/2025 Orders Only [facility] Oncology [address] [place] [phone] Sharmin De La Vega, [place] Prostate cancer (HCC) (Primary Dx); 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); 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) 01/04/2025 Orders Only [address] [address] Paulette Luna [facility] 12/30/2024 11:30 AM CDT Infusion [facility] [address] [place] [address] 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); Prostate cancer (HCC) 12/30/2024 8:45 AM CDT Office Visit [facility] Oncology 10 [facility] [address] [place] [address] Kemal Guillaume MD 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); Prostate cancer (HCC) 12/09/2024 7:45 AM CDT Lab [facility] at [address] [place] [address] Prostate cancer (HCC); 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) 12/04/2024 9:37 AM CDT - 12/04/2024 11:59 PM CDT Hospital Encounter [facility] [address], [place] [address] Kemal Guillaume MD Prostate cancer (HCC) Discharge Disposition: Discharge to home or self care 12/04/2024 9:36 AM CDT - 12/04/2024 11:59 PM CDT Hospital Encounter [facility] [address] [place] [address] Discharge Disposition: Discharge to home or self care 12/04/2024 9:36 AM CDT - 12/04/2024 11:59 PM CDT Hospital Encounter [facility] [address] [place] [address] Prostate cancer (HCC) Discharge Disposition: Discharge to home or self care from Last 3 Months Immunizations Immunization Administration Dates Next Due Tdap 08/12/2014 Surgical History Surgery Date Site/Laterality Comments PROSTATECTOMY LUMBAR DISC SURGERY NECK SURGERY Medical History Medical History Date Comments Cancer (HCC) Gastric reflux GERD (gastroesophageal reflux disease) Hypercholesterolemia Hypertension Social History Tobacco Use Types Packs/Day Years Used Date Smoking Tobacco: Never Smokeless Tobacco: Never Alcohol Use Standard Drinks/Week Comments No 0 (1 standard drink = 0.6 oz pur e alcohol) Sex and Gender Information Value Date Recorded Sex Assigned at Not on file Legal Sex 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:46 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 [employer] Gender Identity Not on file Sexual Orientation Not on file Obstetrics History Last Filed Vital Signs Vital Sign Reading [...] 177.3 cm (5' 9.8) 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 Body Mass Index 19.15 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 Plan of Treatment Health Maintenance Due Date Last Done Comments Colon Cancer Screening-Colonoscopy 1955 Depression Screening 1955 Fall Risk Assessment 1955 Hepatitis C Screening 1955 Hepatitis B Screening 1973 Pneumococcal vaccine 65+ (1 of 2 - PCV) 1974 Zoster Vaccine (1 of 2) 1974 Well Visit 65+ 2020 Covid-19 Vaccine (3 - Pfizer risk series) 05/19/2021 04/21/2021, 03/31/2021 DTaP/Tdap/Td Vaccine (2 - Td or Tdap) 08/12/2024 08/12/2014 Influenza Vaccine (Season Ended) 2025 Prostate Cancer Screening-PSA 02/10/2027, 01/20/2025, 12/30/2024, Additional history exists Procedures Procedure Name Priority Date/Time Associated Diagnosis Comments URINALYSIS AND REFLEX TO MICROSCOPIC AND CULTURE STAT 02/10/2025 7:45 AM CDT Prostate cancer (HCC) 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) EGFR STAT 02/10/2025 7:40 AM CDT Prostate cancer (HCC) 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 pH may affect urinary stone formation. For example, urine pH below 6.0 may help reduce the tendency for calcium phosphate stones and pH greater than 6.0 may reduce the tendency for uric acid stone formation. Source: [place] [facility] Current Interpretive Data was last revised on 2017 Testing performed by: [facility], [address], [place] [address] Protein, ur ql Trace Negative CERNER BJWCH Comment:Testing performed by : [facility], [address], [place] [address] Glucose, ur ql Negative Negative CERNER BJWCH Comment:Testing performed by : [facility], [address], [place] [address] Ketones, ur Negative Negative CERNER BJWCH Comment:Testing performed by : [facility], [address], [place] [address] Bilirubin, ur Negative Negative CERNER BJWCH Comment:Testing performed by : [facility], [address], [place] [address] Blood, ur Negative Negative CERNER BJWCH Comment:Testing performed by : [facility], [address], [place] [address] Urobilinogen, ur <2.0 <2.0 mg/dL CERNER BJWCH Comment:Testing performed by : [facility], [address], [place] [address] Nitrite, ur Negative Negative CERNER BJWCH Comment:Testing performed by : [facility], [address], [place] [address] Leukocyte esterase, ur Negative Negative CERNER BJWCH Comment:Testing performed by : [facility], [address] [place] [address] UA reflex comment Reflex conditions for microscopic UA and culture not met. GORAN HELM Comment:Testing performed by : [facility], [address], [place] [address] Urine 02/10/2025 7:45 AM CDT 02/10/2025 9:46 AM CDT Gladis Savage NP LAB MICROBIOLOGY - NERAL ORDERABLES Final Result [facility] [address] Department [place] [address] * eGFR (02/10/2025 7:40 AM CDT) eGFR [...] was last reviewed 2021. Testing performed by: [facility], [address] [place] [address] Blood 02/10/2025 7:40 AM CDT 02/10/2025 8:17 AM CDT Gladis Savage LAB BLOOD ORDERABLES Final Result [facility] [address] [facility]. Department of Laboratories [place], [place] [id number] * (ABNORMAL) Differential, auto (02/10/2025 7:40 AM CDT) Neutrophil abs 3.80 1.50 - 6.50 K/cumm Comment:Testing performed by : [place] [address], [place] [address] Imm gran abs 0.01 0.00 - 0.10 K/cumm CERNER BJWCH Comment:Testing performed by : [place] [address], [place] [address] Lymphocyte abs 0.56(L) 0.80 - 3.30 K/cumm CERNER BJWCH Comment:Testing performed by : [place] [address], [address] [place] [address] Monocyte abs 0.40 0.20 - 0.80 K/cumm CERNER BJWCH Comment:Testing performed by : [place] [address] [place] [address] Eosinophil abs 0.04 0.00 - 0.50 K/cumm CERNER BJWCH Comment:Testing performed by : [place] [address], [place] [address] Basophil abs 0.04 0.00 - 0.10 K/cumm CERNER BJWCH Comment:Testing performed by : [place] [address], [address] [place] [address] Neutrophil pct 78.5 % CERNER BJWCH Comment: Interpretive Data Percent cell count reference ranges are not reported, since discordance with absolute values may lead to misinterpretation of CBC data. Current Interpretive Data was last revised on 2017. Testing performed by: [facility] 2, [address] [place] [address] Imm gran pct 0.2 % CERNER BJWCH Comment: Interpretive Data Percent cell count reference ranges are not reported, since discordance with absolute values may lead to misinterpretation of CBC data. Current Interpretive Data was last revised on 2017. Testing performed by: [facility], [facility] 2, [address] [place] [address] Lymphocyte pct 11.5 % CERNICHOLE YOUSSEFWCH Comment: Interpretive Data Percent cell count reference ranges are not reported, since discordance with absolute values may lead to misinterpretation of CBC data. Current Interpretive Data was last revised on 2017. Testing performed by: [facility], [facility] 2, [address] [place] [address] Monocyte pct 8.2 % CERNICHOLE YOUSSEFESTEBAN Comment: Interpretive Data Percent cell count reference ranges are not reported, since discordance with absolute values may lead to misinterpretation of CBC data. Current Interpretive Data was last revised on 2017. Testing performed by: [facility], [facility] 2, [address] [place] [address] Eosinophil pct 0.8 % GORAN YOUSSEFESTEBAN Comment: Interpretive Data Percent cell count reference ranges are not reported, since discordance with absolute values may lead to misinterpretation of CBC data. Current Interpretive Data was last revised on 2017. Testing performed by: [facility], [facility] 2, [address] [place] [address] Basophil pct 0.8 % GORAN YOUSSEFESTEBAN Comment: Interpretive Data Percent cell count reference ranges are not reported, since discordance with absolute values may lead to misinterpretation of CBC data. Current Interpretive Data was last revised on 2017. Testing performed by: [facility], [facility] 2, [address] [place] [address] Blood 02/10/2025 7:40 AM CDT 02/10/2025 7:42 AM CDT Gladis Savage NP LAB BLOOD ORDERABLES Final Result [facility] [address] [facility] Department [place] [address] * CBC with auto differential (02/10/2025 7:40 AM CDT) WBC 4.85 3.80 - 9.90 K/cumm Comment:Testing performed by : [place] [address], [place] [address] Hgb 13.4 13.0 - 17.5 g/dL GORAN RASHEEDCH Comment:Testing performed by : [place] [address] [place] [address] Hct 40.3 38.9 - 50.3 % GORAN RASHEEDCH Comment:Testing performed by : [place] [address] [place] [address] Plt 169 150 - 400 K/cumm GORAN RASHEEDCH Comment:Testing performed by : [place] [address], [place] [address] MPV 10.7 9.1 - 12.3 fL GORAN HELM Comment:Testing performed by : [place] [address] [place] [address] RBC 4.59 4.30 - 5.80 M/cumm CERNICHOLE HELM Comment:Testing performed by : [place] [address] [place] [address] MCV 87.8 81.3 - 96.4 fL GORAN YOUSSEFWCH Comment:Testing performed by : [place] [address], [address], [place] [address] MCH 29.2 27.1 - 33.3 pg CERNICHOLE RASHEEDCH Comment:Testing performed by : [place] [address], [address] [place] [address] MCHC 33.3 32.3 - 35.7 g/dL GORAN RASHEEDCH Comment:Testing performed by : [place] [address], [address] [place] [address] RDW CV 12.4 11.1 - 14.9 % GORAN HELM Comment:Testing performed by : [facility], [facility] 2, [address] [place] [address] RDW SD 39.7 35.7 - 48.1 fL GORAN HELM Comment:Testing performed by : [facility], [facility] 2, [address] [place] [address] ANC Prelim 3.80 1.50 - 6.50 K/cumm GORAN HELM Comment: Interpretive Data The rapid ANC is a preliminary automated count and may vary from the final ANC (Neut Abs) reported in the WBC differential that follows. Current interpretive data was last revised 2024. Testing performed by: [facility], [facility] 2, [address] [place] [address] Blood 02/10/2025 7:40 AM CDT 02/10/2025 7:42 AM CDT [facility] LAB BLOOD ORDERABLES Final Result Performing Organization Address City/[facility]/ZIP Co de Phone Number [facility] [address] [facility]. [facility] [place] [address] * Uric acid (02/10/2025 7:40 AM CDT) Uric acid 3.7 3.0 - 8.0 mg/dL Comment:Testing performed by : [facility], [address] [place] [address] Blood 02/10/2025 7:40 AM CDT 02/10/2025 8:17 AM CDT [facility] LAB BLOOD ORDERABLES Final Result Performing Organization Address City[facility]/ZIP Co de Phone Number [facility] [address] [facility]. [facility] [place] [address] * Triglycerides (02/10/2025 7:40 AM CDT) Triglycerides [...] last revised on 2018. Testing performed by: [facility], [address] [place] [address] Blood 02/10/2025 7:40 AM CDT 02/10/2025 8:17 AM CDT Gladis Savage NP LAB BLOOD ORDERABLES Final Result [facility] [address]. Department [place] [address] * (ABNORMAL) PSA diagnostic (02/10/2025 7:40 AM [...] data last revised 22. Testing performed by: [facility], [address] [place] [address] Blood 02/10/2025 7:4 0 AM CDT 02/10/2025 8:17 AM CDT [facility] LAB BLOOD ORDERABLES Final Result Performing Organization Address [facility] de Phone Number GORAN RASHEEDCH [address] [place] [address] * Phosphorus (02/10/2025 7:40 AM CDT) [facility] Phosphorus, pl 3.5 2.3 - 4.5 mg/dL Comment:Testing performed by : [facility], [address] [place] [address] Blood 02/10/2025 7:40 AM CDT 02/10/2025 8:17 AM CDT [facility] LAB BLOOD ORDERABLES Final Result Performing Organization Address [facility] de Phone Number GORAN YOUSSEFCH [address] [place] [address] * Lactate dehydrogenase (LD) (02/10/2025 7:40 AM CDT) [facility] Lactate dehydrogenase (LDH) 130 100 - 250 Units/L Comment:Testing performed by : [facility], [id number] [place], [place] [address], [place] [address] Blood 02/10/2025 7:40 AM CDT 02/10/2025 8:17 AM CDT [facility][1] [employer] LAB BLOOD ORDERABLES Final Result Performing Organization Address [facility] de Phone Number GORAN YOUSSEFCH [address] [place] [address] * Gamma GT (02/10/2025 7:40 AM CDT) [facility] GGT 17 10 - 50 Units/L Comment:Testing performed by : [facility], [address], [place] [address] Blood 02/10/2025 7:40 AM CDT 02/10/2025 8:17 AM CDT [facility] LAB BLOOD ORDERABLES Final Result Performing Organization Address [facility] de Phone Number GORAN YOUSSEFCH [address]. [place] [address] * (ABNORMAL) Creatine kinase (CK), total (02/10/2025 7:40 AM CDT) CK 23(L) 40 - 300 Units/L Comment:Testing performed by : [facility], [address] [place] [address] Blood 02/10/2025 7:40 AM CDT 02/10/2025 8:17 AM CDT [facility] LAB BLOOD ORDERABLES Final Result Performing Organization Address [facility] de Phone Number G[facility]AN YOUSSEF[facility] [phone] [address]. [place] [address] * Comprehensive metabolic panel (02/10/2025 7:40 AM CDT) Sodium 143 135 - 145 mmol/L Comment:Testing performed by : [facility], [address], [place] [address] Potassium, pl 4.1 3.3 - 4.9 mmol/L CERNER BJWCH Comment:Testing performed by : [facility], [address], [place] [address] Chloride 103 97 - 110 mmol/L CERNER BJWCH Comment:Testing performed by : [facility], [address] [place] [address] CO2 29 22 - 32 mmol/L CERNER BJWCH Comment:Testing performed by : [facility], [address] [place] [address] Anion gap 11 2 - 15 mmol/L CERNER BJWCH Comment:Testing performed by : [facility], [address], [place] [address] BUN 17 6 - 25 mg/dL CERNER BJWCH Comment:Testing performed by : [facility], [address], [place] [address] Creatinine 0.90 0.80 - 1.30 mg/dL CERNER BJWCH Comment:Testing performed by : [facility], [address], [place] [address] Glucose 174 70 - 199 mg/dL CERNER BJWCH Comment: [...] was last revised 2022. Testing performed by: [facility], [address], [place] [address] Calcium 10.0 8.5 - 10.3 mg/dL CERNER BJWCH Comment:Testing performed by : [facility], [address], [place] [address] Bilirubin, total 0.2 0.1 - 1.2 mg/dL CERNER BJWCH Comment:Testing performed by : [facility], [address], [place] [address] Protein, pl 6.8 6.5 - 8.5 g/dL CERNER BJWCH Comment:Testing performed by : [facility], [address], [place] [address] Albumin 4.6 3.5 - 5.0 g/dL CERNER BJWCH Comment:Testing performed by : [facility], [address], [place] [address] Alk phos 67 40 - 130 Units/L CERNER BJWCH Comment:Testing performed by : [facility], [address], [place] [address] ALT 16 7 - 55 Units/L GORAN HELM Comment:Testing performed by : [facility], [address], [place] [address] AST 21 10 - 50 Units/L GORAN HELM Comment:Testing performed by : [facility], [address], [place] [address] Blood 02/10/2025 7:40 AM CDT 02/10/2025 8:17 AM CDT Gladis Savage NP LAB BLOOD ORDERABLES Final Result [facility] [address]. Department [place] [address] * [facility] Bone Imaging Whole Body (02/08/2025 [...] man with prostate cancer diagnosed in 2009 ([place] 4+3), status post radical prostatectomy, radiation and androgen deprivation therapy. He is currently being treated on the [id number] trial, since September 2024. The most recently [...] He is currently being treated on the [id number] trial, since September 2024. The most recently [...] it. Electronically signed by: Domenic Charlton M.D. [facility] Maxx Guillaume MD [facility] PROCED[facility] Edit ed Result - Final * [...] it. Electronically signed by: Renato Cutler M.D. [facility] Maxx Guillaume MD IMG CT PROCEDURES Vanessa [...] EXAMINATION: PSMA-PET/CT DATE OF STUDY: 02/01/2025 SCANNER: [facility] PET Vision (NV1). This is a high-resolution scanner, which can result in higher SUVs (and even detection of previously unrecognized small lesions) compared to older scanners. RADIOPHARMACEUTICAL: 9.82 mCi F-18 DCFPyL (Piflufolastat) i.v. Injection site: Right antecubital HISTORY: 69-year-old man with prostate cancer diagnosed in 2009 ([place] 4+3), status post radical prostatectomy, radiation and androgen deprivation therapy. He is currently being treated on the [id number] trial, since September 2024. The most recently [...] obtained. The study was interpreted on the Go[employer] workstation. The total scanned area was mid [...] EXAMINATION: PSMA-PET/CT DATE OF STUDY: 02/01/2025 SCANNER: [facility] PaperG (NV1). This is a high-resolution scanner, which can result in higher SUVs (and even detection of previously unrecognized small lesions) compared to older scanners. RADIOPHARMACEUTICAL: 9.82 mCi F-18 DCFPyL (Piflufolastat) i.v. Injection site: Right antecubital HISTORY: 69-year-old man with prostate cancer diagnosed in 2009 ([place] 4+3), status post radical prostatectomy, radiation and androgen deprivation therapy. He is currently being treated on the [id number] trial, since September 2024. The most recently [...] obtained. The study was interpreted on the [employer] workstation. The total scanned area was mid [...] it. Electronically signed by: Reggie Villasenor M.D. us Kemal Guillaume MD IMG PET PROCEDURES Fin [...] was last reviewed 2021. Testing performed by: [facility], [address] [place] [address] Blood 01/20/2025 7:43 AM CDT 01/20/2025 8:17 AM CDT us Kemal Guillaume MD LAB BLOOD ORDERABLES F inal Result [facility] [address] [address] [place] [facility]. Department [place] [address] * (ABNORMAL) Differential, auto (01/20/2025 7:43 AM CDT) Neutrophil abs 4.30 1.50 - 6.50 K/cumm Comment:Testing performed by : [facility], [address] [address], [address] [place] [address] Imm gran abs 0.01 0.00 - 0.10 K/cumm CERNER BJWCH Comment:Testing performed by : [facility], [facility], [address], [place] [address] Lymphocyte abs 0.53(L) 0.80 - 3.30 K/cumm CERNER BJWCH Comment:Testing performed by : [facility], [facility] 2, [address] [place] [address] Monocyte abs 0.45 0.20 - 0.80 K/cumm CERNER BJWCH Comment:Testing performed by : [facility], [facility] 2, [address] [place] [address] Eosinophil abs 0.04 0.00 - 0.50 K/cumm CERNER BJWCH Comment:Testing performed by : [facility], [facility] 2, [address] [place] [address] Basophil abs 0.02 0.00 - 0.10 K/cumm CERNER BJWCH Comment:Testing performed by : [facility], [facility] 2, [address] [place] [address] Neutrophil pct 80.4 % CERNER BJWCH Comment: Interpretive Data Percent cell count reference ranges are not reported, since discordance with absolute values may lead to misinterpretation of CBC data. Current Interpretive Data was last revised on 2017. Testing performed by: [facility], [facility] 2, [address] [place] [address] Imm gran pct 0.2 % CERNER BJWCH Comment: Interpretive Data Percent cell count reference ranges are not reported, since discordance with absolute values may lead to misinterpretation of CBC data. Current Interpretive Data was last revised on 2017. Testing performed by: [facility], [facility] 2, [address] [place] [address] Lymphocyte pct 9.9 % CERNER BJWCH Comment: Interpretive Data Percent cell count reference ranges are not reported, since discordance with absolute values may lead to misinterpretation of CBC data. Current Interpretive Data was last revised on 2017. Testing performed by: [facility], [facility] 2, [address] [place] [address] Monocyte pct 8.4 % GORAN HELM Comment: Interpretive Data Percent cell count reference ranges are not reported, since discordance with absolute values may lead to misinterpretation of CBC data. Current Interpretive Data was last revised on 2017. Testing performed by: [facility], [facility] 2, [address] [place] [address] Eosinophil pct 0.7 % GORAN HELM Comment: Interpretive Data Percent cell count reference ranges are not reported, since discordance with absolute values may lead to misinterpretation of CBC data. Current Interpretive Data was last revised on 2017. Testing performed by: [facility], [facility] 2, [address] [place] [address] Basophil pct 0.4 % GORAN HELM Comment: Interpretive Data Percent cell count reference ranges are not reported, since discordance with absolute values may lead to misinterpretation of CBC data. Current Interpretive Data was last revised on 2017. Testing performed by: [facility], [facility] 2, [address] [place] [address] Blood 01/20/2025 7:43 AM CDT 01/20/2025 7:43 AM CDT Kemal Guillaume MD LAB BLOOD ORDERABLES F inal Result [facility] [address] [facility]. Department [place] [address] * CBC with auto differential (01/20/2025 7:43 AM CDT) WBC 5.35 3.80 - 9.90 K/cumm Comment:Testing performed by : [facility], [facility] 2, [address] [place] [address] Hgb 13.3 13.0 - 17.5 g/dL CERNER BJWCH Comment:Testing performed by : [facility], [facility] 2, [address], [place] [address] Hct 40.2 38.9 - 50.3 % CERNER BJWCH Comment:Testing performed by : [facility] 2, [address], [place] [address] Plt 181 150 - 400 K/cumm CERNER BJWCH Comment:Testing performed by : [place] [address], [address], [place] [address] MPV 10.7 9.1 - 12.3 fL CERNER BJWCH Comment:Testing performed by : [place] [address], [address] [place] [address] RBC 4.61 4.30 - 5.80 M/cumm CERNER BJWCH Comment:Testing performed by : [place] [address], [address], [place] [address] MCV 87.2 81.3 - 96.4 fL CERNER BJWCH Comment:Testing performed by : [place] [address], [address], [place] [address] MCH 28.9 27.1 - 33.3 pg CERNER BJWCH Comment:Testing performed by : [place] [address], [address], [place] [address] MCHC 33.1 32.3 - 35.7 g/dL CERNER BJWCH Comment:Testing performed by : [place] [address], [address] [place] [address] RDW CV 12.0 11.1 - 14.9 % CERNER BJWCH Comment:Testing performed by : [place] [address], [address], [place] [address] RDW SD 38.7 35.7 - 48.1 fL CERNER BJWCH Comment:Testing performed by : [place] [address], [address], [place] [address] ANC Prelim 4.30 1.50 - 6.50 K/cumm GORAN YOUSSEFWCH Comment: Interpretive Data The rapid ANC is a preliminary automated count and may vary from the final ANC (Neut Abs) reported in the WBC differential that follows. Current interpretive data was last revised 2024. Testing performed by: [facility], [address] [address], [address], [place] [address] Blood 01/20/2025 7:43 AM CDT 01/20/2025 7:43 AM CDT Kemal Guillaume MD LAB BLOOD ORDERABLES F inal Result Performing Organization Address City/[facility]/ZIP Co de Phone Number [facility] [address] [facility]. [facility] [place] [address] * Uric acid (01/20/2025 7:43 AM CDT) Uric acid 3.6 3.0 - 8.0 mg/dL Comment:Testing performed by : [facility], [address], [place] [address] Blood 01/20/2025 7:43 AM CDT 01/20/2025 8:17 AM CDT Kemal Guillaume MD LAB BLOOD ORDERABLES F inal Result Performing Organization Address City/[facility]/ZIP Co de Phone Number [facility] [address] [place] [facility]. [facility] [place] [address] * Triglycerides (01/20/2025 7:43 AM CDT) Triglycerides [...] last revised on 2018. Testing performed by: [facility], [address] [place], [place] [address] [address] Blood 01/20/2025 7:43 AM CDT 01/20/2025 8:17 AM CDT Kemal Guillaume MD LAB BLOOD ORDERABLES F inal Result Performing Organization Address [facility] Co de Phone Number [facility] [address] [facility]. [facility] [place] [address] * (ABNORMAL) PSA diagnostic (01/20/2025 7:43 AM CDT) PSA-Total 16.24(H) <=5.40 ng/mL Comment: Interpretive Data AGE SEX REFERENCE INTERVAL 0 minutes-150 years Female None 0 minutes-49 years Male None 50-59 years Male 0-3.90 60-69 years Male 0-5.40 70-79 years Male 0-6.20 80-150 years Male 0-6.20 The [employer] PSA Total assay procedure was used. Results from different manufacturers or methods may not be comparable. Serial testing should be performed using the same method. Current interpretive data last revised 22. Testing performed by: [facility], [id number] [place] [address] Blood 01/20/2025 7:43 AM CDT 01/20/2025 8:17 AM CDT Kemal Guillaume MD LAB BLOOD ORDERABLES F inal Result Performing Organization Address City/[facility] Co de Phone Number [facility] [address] [facility]. [facility] [place] [address] * Phosphorus (01/20/2025 7:43 AM CDT) Pathologist [facility] Phosphorus, pl 2.9 2.3 - 4.5 mg/dL Comment:Testing performed by : [facility], [address] [place] [address] Blood 01/20/2025 7:43 AM CDT 01/20/2025 8:17 AM CDT Kemal Guillaume MD LAB BLOOD ORDERABLES F inal Result [facility] [address] [facility] [place] [address] * Lactate dehydrogenase (LD) (01/20/2025 7:43 AM CDT) [facility] Lactate dehydrogenase (LDH) 143 100 - 250 Units/L Comment:Testing performed by : [facility], [address] [place] [address] Blood 01/20/2025 7:43 AM CDT 01/20/2025 8:17 AM CDT Kemal Guillaume MD LAB BLOOD ORDERABLES F inal Result Performing Organization Address [facility] Co de Phone Number [facility] [address] [employer]. [facility] [place] [address] * Gamma GT (01/20/2025 7:43 AM CDT) [facility] GGT 19 10 - 50 Units/L Comment:Testing performed by : [facility], [address] [place] [address] Blood 01/20/2025 7:43 AM CDT 01/20/2025 8:17 AM CDT Kemal Guillaume MD LAB BLOOD ORDERABLES F inal Result [facility] [address] Department [place] [address] * (ABNORMAL) Creatine kinase (CK), total (01/20/2025 7:43 AM CDT) Pathologist [facility] CK 22(L) 40 - 300 Units/L Comment:Testing performed by : [facility], [address], [place] [address] Blood 01/20/2025 7:43 AM CDT 01/20/2025 8:17 AM CDT Kemal Guillaume MD LAB BLOOD ORDERABLES F inal Result [facility] [address] [address] Department [place] [address] * (ABNORMAL) Comprehensive metabolic panel (01/20/2025 7:43 AM CDT) [facility] Sodium 141 135 - 145 mmol/L Comment:Testing performed by : [facility], [address], [place] [address] Potassium, pl 3.7 3.3 - 4.9 mmol/L CERNICHOLE BJJulius Comment:Testing performed by : [facility], [address], [place] [address] Chloride 102 97 - 110 mmol/L GORAN BJJuliusCH Comment:Testing performed by : [facility], [address], [place] [address] CO2 28 22 - 32 mmol/L CERNICHOLE BJWCH Comment:Testing performed by : [facility], [address], [place] [address] Anion gap 11 2 - 15 mmol/L GORAN BJWCH Comment:Testing performed by : [facility], [address], [place] [address] BUN 18 6 - 25 mg/dL GORAN BJWCH Comment:Testing performed by : [facility], [address], [place] [address] Creatinine 0.70(L) 0.80 - 1.30 mg/dL CERNER BJWCH Comment:Testing performed by : [facility], [address], [place] [address] Glucose 156 70 - 199 mg/dL CERNER [...] was last revised 2022. Testing performed by: [facility], [address], [place] [address] Calcium 9.7 8.5 - 10.3 mg/dL CERNER BJWCH Comment:Testing performed by : [facility], [address], [place] [address] Bilirubin, total 0.2 0.1 - 1.2 mg/dL CERNER BJWCH Comment:Testing performed by : [facility], [address], [place] [address] Protein, pl 6.9 6.5 - 8.5 g/dL CERNER BJWCH Comment:Testing performed by : [facility], [address], [place] [address] Albumin 4.3 3.5 - 5.0 g/dL CERNER BJWCH Comment:Testing performed by : [facility], [address], [place] [address] Alk phos 74 40 - 130 Units/L CERNER BJWCH Comment:Testing performed by : [facility], [address], [place] [address] ALT 16 7 - 55 Units/L CERNER BJWCH Comment:Testing performed by : [facility], [address], [place] [address] AST 24 10 - 50 Units/L CERNER BJWCH Comment:Testing performed by : [facility], [address], [place] [address] Blood 01/20/2025 7:43 AM CDT 01/20/2025 8:17 AM CDT Kemal Guillaume MD LAB BLOOD ORDERABLES F inal Result [facility] [address] Department [place] [address] * Urinalysis reflex to microscopic and culture Urine (01/20/2025 7:37 AM CDT) Color, ur Yellow Yellow Comment:Testing performed by : [facility], [address], [place] [address] Clarity, ur Clear Clear GORAN HELM Comment:Testing performed by : [facility], [address], [place] [address] Specific gravity, ur 1.029 1.003 - 1.030 GORAN HELM Comment:Testing performed by : [facility], [address], [place] [address] pH, urine 5.5 GORAN HELM Comment: Interpretive Data U rine pH is affected by diet, medications, systemic acid-base disturbances, and renal tubular function. pH may affect urinary stone formation. For example, urine pH below 6.0 may help reduce the tendency for calcium phosphate stones and pH greater than 6.0 may reduce the tendency for uric acid stone formation. Source: [facility] Current Interpretive Data was last revised on 2017 Testing performed by: [facility], [address], [place] [address] Protein, ur ql Trace Negative GORAN HELM Comment:Testing performed by : [facility], [address], [place] [address] Glucose, ur ql Negative Negative GORAN HELM Comment:Testing performed by : [facility], [address], [place] [address] Ketones, ur Negative Negative CERNICHOLE YOUSSEFWCH Comment:Testing performed by : [facility], [address], [place] [address] Bilirubin, ur Negative Negative CERNER BJWCH Comment:Testing performed by : [facility], [address], [place] [address] Blood, ur Negative Negative CERNER BJWCH Comment:Testing performed by : [facility], [address], [place] [address] Urobilinogen, ur <2.0 <2.0 mg/dL CERNER BJWCH Comment:Testing performed by : [facility], [address], [place] [address] Nitrite, ur Negative Negative CERNER BJWCH Comment:Testing performed by : [facility], [address], [place] [address] Leukocyte esterase, ur Negative Negative CERNER BJWCH Comment:Testing performed by : [facility], [address], [place] [address] UA reflex comment Reflex conditions for microscopic UA and culture not met. GORAN BJWCH Comment:Testing performed by : [facility], [address], [place] [address] Urine 01/20/2025 7:37 AM CDT 01/20/2025 8:20 AM CDT Kemal Guillaume MD LAB MICROBIOLOGY - GEN ERAL ORDERABLES Final Result [facility] [address] Department [place] [address] * (ABNORMAL) Urinalysis reflex to microscopic and culture Urine (12/30/2024 7:40 AM CDT) Color, ur Yellow Yellow Comment:Testing performed by : [facility], [address], [place] [address] Clarity, ur Clear Clear CERNER BJWCH Comment:Testing performed by : [facility], [address], [place] [address] Specific gravity, ur 1.030 1.003 - 1.030 CERNER BJWCH Comment:Testing performed by : [facility], [address], [place] [address] pH, urine 5.5 CERNER BJWCH Comment: Interpretive Data U rine pH is affected by diet, medications, systemic acid-base disturbances, and renal tubular function. pH may affect urinary stone formation. For example, urine pH below 6.0 may help reduce the tendency for calcium phosphate stones and pH greater than 6.0 may reduce the tendency for uric acid stone formation. Source: [facility] [employer] Current Interpretive Data was last revised on 2017 Testing performed by: [facility], [address], [place] [address] Protein, ur ql 1+(A) Negative CERNER BJWCH Comment:Testing performed by : [facility], [address], [place] [address] Glucose, ur ql Negative Negative CERNER BJWCH Comment:Testing performed by : [facility], [address], [place] [address] Ketones, ur Negative Negative CERNER BJWCH Comment:Testing performed by : [facility], [address], [place] [address] Bilirubin, ur Negative Negative CERNER BJWCH Comment:Testing performed by : [facility], [address], [place] [address] Blood, ur Negative Negative CERNER BJWCH Comment:Testing performed by : [facility], [address], [place] [address] Urobilinogen, ur <2.0 <2.0 mg/dL CERNER BJWCH Comment:Testing performed by : [facility], [address], [place] [address] Nitrite, ur Negative Negative CERNER BJWCH Comment:Testing performed by : [facility], [address], [place] [address] Leukocyte esterase, ur Negative Negative CERNER BJWCH Comment:Testing performed by : [facility], [address], [place] [address] UA reflex comment Reflex to microscopic UA will be performed. GORAN HELM Comment:Testing performed by : [facility], [address], [place] [address] Urine 12/30/2024 7:40 AM CDT 12/30/2024 8:16 AM CDT Kemal Guillaume MD LAB MICROBIOLOGY - GEN ERAL ORDERABLES Final Result Performing Organization Address City/[facility]/ZIP Co de Phone Number [facility] [address] [address]. [facility] [place] [address] * (ABNORMAL) Urinalysis, microscopic only (12/30/2024 7:40 AM CDT) WBC, ur 0-5 0 - 5 /HPF Comment:Testing performed by : [facility], [address], [place] [address] RBC, ur 0-2 0 - 2 /HPF GORAN HELM Comment:Testing performed by : [facility], [address], [place] [address] Mucous, ur Present(A) GORAN HELM Comment:Testing performed by : [facility], [address], [place] [address] Culture Reflex Comment Reflex conditions for urine culture (WBC >10) not met. GORAN HELM Comment:Testing performed by : [facility], [address], [place] [address] Urine 12/30/2024 7:40 AM CDT 12/30/2024 8:16 AM CDT us Kemal Guillaume MD LAB URINE ORDERABLES F inal Result [facility] [address] [address]. [facility] [place] [address] * eGFR (12/30/2024 7:35 AM CDT) Pathologist [facility] eGFR >90 >=60 mL/min/1. 73 m2 Comment: [...] was last reviewed 2021. Testing performed by: [facility], [address] [place] [address] Blood 12/30/2024 7:35 AM CDT 12/30/2024 7:49 AM CDT Kemal Guillaume MD LAB BLOOD ORDERABLES F inal Result [facility] [address] [address] Department of Laboratories [place], [place] [address] * (ABNORMAL) Differential, auto (12/30/2024 7:35 AM CDT) Pathologist [facility] Neutrophil abs 4.76 1.50 - 6.50 K/cumm Comment:Testing performed by : [facility], [address], [address] [place] [address] Imm gran abs 0.01 0.00 - 0.10 K/cumm GORAN HELM Comment:Testing performed by : [facility], [facility] 2, [address] [place] [address] Lymphocyte abs 0.63(L) 0.80 - 3.30 K/cumm CERNER BJWCH Comment:Testing performed by : [facility], [facility] 2, [address] [place] [address] Monocyte abs 0.45 0.20 - 0.80 K/cumm CERNER BJWCH Comment:Testing performed by : [facility], [facility] 2, [address], [place] [address] Eosinophil abs 0.02 0.00 - 0.50 K/cumm CERNER BJWCH Comment:Testing performed by : [facility], [facility] 2, [address], [place] [address] Basophil abs 0.04 0.00 - 0.10 K/cumm CERNER BJWCH Comment:Testing performed by : [facility], [facility] 2, [address] [place] [address] Neutrophil pct 80.5 % CERNER BJWCH Comment: Interpretive Data Percent cell count reference ranges are not reported, since discordance with absolute values may lead to misinterpretation of CBC data. Current Interpretive Data was last revised on 2017. Testing performed by: [facility], [facility] 2, [address] [place] [address] Imm gran pct 0.2 % CERNER BJWCH Comment: Interpretive Data Percent cell count reference ranges are not reported, since discordance with absolute values may lead to misinterpretation of CBC data. Current Interpretive Data was last revised on 2017. Testing performed by: [facility], [facility] 2, [address] [place] [address] Lymphocyte pct 10.7 % CERNER BJWCH Comment: Interpretive Data Percent cell count reference ranges are not reported, since discordance with absolute values may lead to misinterpretation of CBC data. Current Interpretive Data was last revised on 2017. Testing performed by: [facility], [facility] 2, [address] [place] [address] Monocyte pct 7.6 % CERNER BJWCH Comment: Interpretive Data Percent cell count reference ranges are not reported, since discordance with absolute values may lead to misinterpretation of CBC data. Current Interpretive Data was last revised on 2017. Testing performed by: [facility] 2, [address] [place] [address] Eosinophil pct 0.3 % GORAN HELM Comment: Interpretive Data Percent cell count reference ranges are not reported, since discordance with absolute values may lead to misinterpretation of CBC data. Current Interpretive Data was last revised on 2017. Testing performed by: [facility] 2, [address] [place] [address] Basophil pct 0.7 % GORAN HELM Comment: Interpretive Data Percent cell count reference ranges are not reported, since discordance with absolute values may lead to misinterpretation of CBC data. Current Interpretive Data was last revised on 2017. Testing performed by: [facility] 2, [address] [place] [address] Blood 12/30/2024 7:35 AM CDT 12/30/2024 7:40 AM CDT Kemal Guillaume MD LAB BLOOD ORDERABLES F inal Result [facility] [address] [facility]. Department [place] [address] * CBC with auto differential (12/30/2024 7:35 AM CDT) WBC 5.91 3.80 - 9.90 K/cumm Comment:Testing performed by : [facility], [facility] 2, [address] [place] [address] Hgb 13.4 13.0 - 17.5 g/dL GORAN HELM Comment:Testing performed by : [facility] 2, [address] [place] [address] Hct 40.6 38.9 - 50.3 % GORAN HELM Comment:Testing performed by : [facility] 2, [address] [place] [address] Plt 208 150 - 400 K/cumm CERNER BJWCH Comment:Testing performed by : [facility], [facility] 2, [address] [place] [address] MPV 10.3 9.1 - 12.3 fL CERNER BJWCH Comment:Testing performed by : [place] [address], [address] [place] [address] RBC 4.60 4.30 - 5.80 M/cumm CERNER BJWCH Comment:Testing performed by : [facility], [facility], [address] [place] [address] MCV 88.3 81.3 - 96.4 fL CERNER BJWCH Comment:Testing performed by : [facility] 2, [address] [place] [address] MCH 29.1 27.1 - 33.3 pg CERNER BJWCH Comment:Testing performed by : [place] [address], [address] [place] [address] MCHC 33.0 32.3 - 35.7 g/dL CERNER BJWCH Comment:Testing performed by : [place] [address], [address] [place] [address] RDW CV 11.9 11.1 - 14.9 % CERNICHOLE BJWCH Comment:Testing performed by : [place] [address], [address] [place] [address] RDW SD 38.1 35.7 - 48.1 fL CERNER BJWCH Comment:Testing performed by : [place] [address], [address] [place] [address] ANC Prelim 4.76 1.50 - 6.50 K/cumm CERNER BJWCH Comment: Interpretive Data The rapid ANC is a preliminary automated count and may vary from the final ANC (Neut Abs) reported in the WBC differential that follows. Current interpretive data was last revised 2024. Testing performed by: [place] [address], [address] [place] [address] Blood 12/30/2024 7:35 AM CDT 12/30/2024 7:40 AM CDT Kemal Guillaume MD LAB BLOOD ORDERABLES F inal Result Performing Organization Address [facility] Co de Phone Number [facility] [address] [facility]. [place] [address] * Uric acid (12/30/2024 7:35 AM CDT) Uric acid 3.9 3.0 - 8.0 mg/dL Comment:Testing performed by : [facility], [address] [place] [address] Blood 12/30/2024 7:35 AM CDT 12/30/2024 7:49 AM CDT Kemal Guillaume MD LAB BLOOD ORDERABLES F inal Result Performing Organization Address [facility] Co de Phone Number [facility] [address] [facility]. [place] [address] * (ABNORMAL) Triglycerides (12/30/2024 7:35 AM CDT) [...] last revised on 2018. Testing performed by: [facility], [address] [place] [address] Blood 12/30/2024 7:35 AM CDT 12/30/2024 7:49 AM CDT Kemal Guillaume MD LAB BLOOD ORDERABLES F inal Result Performing Organization Address [facility] Co de Phone Number [facility]AN [facility] [address] [address]. [facility] [place] [address] * (ABNORMAL) PSA diagnostic (12/30/2024 7:35 AM [...] data last revised 22. Testing performed by: [facility], [address] [place] [address] Blood 12/30/2024 7:35 AM CDT 12/30/2024 7:49 AM CDT us Kemal Guillaume MD LAB BLOOD ORDERABLES F inal Result Performing Organization Address [facility] Co de Phone Number GORAN BJW[facility] [address] [address]. [facility] [place] [address] * Phosphorus (12/30/2024 7:35 AM CDT) Phosphorus, pl 3.7 2.3 - 4.5 mg/dL Comment:Testing performed by : [facility], [address] [place] [address] Blood 12/30/2024 7:35 AM CDT 12/30/2024 7:49 AM CDT Kemal Guillaume MD LAB BLOOD ORDERABLES F inal Result Performing Organization Address [facility] Co de Phone Number G[facility]AN [facility] [address] [address]. [facility] [place] [address] * Lactate dehydrogenase (LD) (12/30/2024 7:35 AM CDT) Pathologist [facility] Lactate dehydrogenase (LDH) 141 100 - 250 Units/L Comment:Testing performed by : [facility], [address] [facility], [place] [address] Blood 12/30/2024 7:35 AM CDT 12/30/2024 7:49 AM CDT Kemal Guillaume MD LAB BLOOD ORDERABLES F inal Result Performing Organization Address [facility] de Phone Number GORAN BJWCH [address] [address] [facility]. [place] [address] * Gamma GT (12/30/2024 7:35 AM CDT) [facility] GGT 15 10 - 50 Units/L Comment:Testing performed by : [facility], [address] [facility], [place] [address] Blood 12/30/2024 7:35 AM CDT 12/30/2024 7:49 AM CDT Kemal Guillaume MD LAB BLOOD ORDERABLES F inal Result Performing Organization Address [facility] Co de Phone Number GORAN BJW[facility] [address] [address] [place] [address] * (ABNORMAL) Creatine kinase (CK), total (12/30/2024 7:35 AM CDT) Pathologist [facility] CK 25(L) 40 - 300 Units/L Comment:Testing performed by : [facility], [address], [place] [address] Blood 12/30/2024 7:35 AM CDT 12/30/2024 7:49 AM CDT Kemal Guillaume MD LAB BLOOD ORDERABLES F inal Result [facility] [address] Department [place] [address] * Comprehensive metabolic panel (12/30/2024 7:35 AM CDT) Sodium 143 135 - 145 mmol/L Comment:Testing performed by : [facility], [address] [address] Potassium, pl 4.3 3.3 - 4.9 mmol/L CERNER BJWCH Comment:Testing performed by : [facility], [address] [place] [address] Chloride 103 97 - 110 mmol/L CERNER BJWCH Comment:Testing performed by : [facility], [address], [place] [address] CO2 30 22 - 32 mmol/L CERNER BJWCH Comment:Testing performed by : [facility], [address], [place] [address] Anion gap 10 2 - 15 mmol/L CERNER BJWCH Comment:Testing performed by : [facility], [address], [place] [address] BUN 19 6 - 25 mg/dL CERNER BJWCH Comment:Testing performed by : [facility], [address], [place] [address] Creatinine 0.82 0.80 - 1.30 mg/dL CERNER BJWCH Comment:Testing performed by : [facility], [address], [place] [address] Glucose 169 70 - 199 mg/dL CERNER [...] was last revised 2022. Testing performed by: [facility], [address], [place] [address] Calcium 9.9 8.5 - 10.3 mg/dL CERNER BJWCH Comment:Testing performed by : [facility], [address], [place] [address] Bilirubin, total 0.3 0.1 - 1.2 mg/dL CERNER BJWCH Comment:Testing performed by : [facility], [address], [place] [address] Protein, pl 6.8 6.5 - 8.5 g/dL CERNER BJWCH Comment:Testing performed by : [facility], [address], [place] [address] Albumin 4.1 3.5 - 5.0 g/dL CERNER BJWCH Comment:Testing performed by : [facility], [address], [place] [address] Alk phos 72 40 - 130 Units/L CERNER BJWCH Comment:Testing performed by : [facility], [address], [place] [address] ALT 18 7 - 55 Units/L CERNER BJWCH Comment:Testing performed by : [facility], [address], [place] [address] AST 23 10 - 50 Units/L CERNER BJWCH Comment:Testing performed by : [facility], [address], [place] [address] Blood 12/30/2024 7:35 AM CDT 12/30/2024 7:49 AM CDT Kemal Guillaume MD LAB BLOOD ORDERABLES F inal Result [facility] YOU[facility]FW [address] Department of Laboratories [place], [place] [id number] * (ABNORMAL) Urinalysis reflex to microscopic and culture Urine (12/09/2024 7:45 AM CDT) Color, ur Yellow Yellow Comment:Testing performed by : [facility], [address], [place] [address] Clarity, ur Clear Clear CERNICHOLE HELM Comment:Testing performed by : [facility], [address], [place] [address] Specific gravity, ur 1.029 1.003 - 1.030 GORAN RASHEEDCH Comment:Testing performed by : [facility], [address], [place] [address] pH, urine 5.5 GORAN HELM Comment: Interpretive Data U rine pH is affected by diet, medications, systemic acid-base disturbances, and renal tubular function. pH may affect urinary stone formation. For example, urine pH below 6.0 may help reduce the tendency for calcium phosphate stones and pH greater than 6.0 may reduce the tendency for uric acid stone formation. Source: [facility] [employer] Current Interpretive Data was last revised on 2017 Testing performed by: [facility], [address], [place] [address] Protein, ur ql 1+(A) Negative CERNICHOLE HELM Comment:Testing performed by : [facility], [address], [place] [address] Glucose, ur ql Negative Negative CERNICHOLE YOUSSEFWCH Comment:Testing performed by : [facility], [address], [place] [address] Ketones, ur Negative Negative CERNER BJWCH Comment:Testing performed by : [facility], [address], [place] [address] Bilirubin, ur Negative Negative CERNER BJWCH Comment:Testing performed by : [facility], [address], [place] [address] Blood, ur Negative Negative GORAN HELM Comment:Testing performed by : [facility], [address], [place] [address] Urobilinogen, ur <2.0 <2.0 mg/dL GORAN HELM Comment:Testing performed by : [facility], [address], [place] [address] Nitrite, ur Negative Negative GORAN HELM Comment:Testing performed by : [facility], [address], [place] [address] Leukocyte esterase, ur Negative Negative GORAN HELM Comment:Testing performed by : [facility], [address], [place] [address] UA reflex comment Reflex to microscopic UA will be performed. GORAN HELM Comment:Testing performed by : [facility], [address], [place] [address] Urine 12/09/2024 7:45 AM CDT 12/09/2024 8:11 AM CDT Kemal Guillaume MD LAB MICROBIOLOGY - GEN ERAL ORDERABLES Final Result [facility] [address] Department [place] [address] * (ABNORMAL) Urinalysis, microscopic only (12/09/2024 7:45 AM CDT) WBC, ur 0-5 0 - 5 /HPF Comment:Testing performed by : [facility], [address], [place] [address] RBC, ur 3-5(A) 0 - 2 /HPF GORAN HELM Comment:Testing performed by : [facility], [address], [place] [address] Epithelial cells, squamous, ur 1-5 0 - 5 /HPF GORAN HELM Comment:Testing performed by : [facility], [address], [place] [address] Mucous, ur Present(A) GORAN HELM Comment:Testing performed by : [facility], [address], [place] [address] Culture Reflex Comment Reflex conditions for urine culture (WBC >10) not met. GORAN HELM Comment:Testing performed by : [facility], [address], [place] [address] Urine 12/09/2024 7:45 AM CDT 12/09/2024 8:11 AM CDT us Kemal Guillaume MD LAB URINE ORDERABLES F inal Result [facility] [address] Department of Laboratories [place], [place] [id number] * eGFR (12/09/2024 7:33 AM CDT) eGFR [...] was last reviewed 2021. Testing performed by: [facility], [address], [place] [address] Blood 12/09/2024 7:33 AM CDT 12/09/2024 7:49 AM CDT us Kemal Guillaume MD LAB BLOOD ORDERABLES F inal Result [facility] [address] Department of Laboratories [place], [place] [id number] * (ABNORMAL) Differential, auto (12/09/2024 7:33 AM CDT) Neutrophil abs 2.8 1.5 - 6.5 K/cumm Comment:Testing performed by : [facility], [address], [place] [address] Imm gran abs 0.0 0.0 - 0.1 K/cumm CERNER BJWCH Comment:Testing performed by : [facility], [address], [place] [address] Lymphocyte abs 0.6(L) 0.8 - 3.3 K/cumm CERNER BJWCH Comment:Testing performed by : [facility], [address], [place] [address] Monocyte abs 0.3 0.2 - 0.8 K/cumm CERNER BJWCH Comment:Testing performed by : [facility], [address], [place] [address] Eosinophil abs 0.0 0.0 - 0.5 K/cumm CERNER BJWCH Comment:Testing performed by : [facility], [address], [place] [address] Basophil abs 0.0 0.0 - 0.1 K/cumm CERNER BJWCH Comment:Testing performed by : [facility], [address], [place] [address] Neutrophil pct 73.8 % CERNER BJWCH Comment: Interpretive Data Percent cell count reference ranges are not reported, since discordance with absolute values may lead to misinterpretation of CBC data. Current Interpretive Data was last revised on 2017. Testing performed by: [facility], [address], [place] [address] Imm gran pct 0.3 % CERNER BJWCH Comment: Interpretive Data Percent cell count reference ranges are not reported, since discordance with absolute values may lead to misinterpretation of CBC data. Current Interpretive Data was last revised on 2017. Testing performed by: [facility], [address], [place] [address] Lymphocyte pct 16.0 % [facility] Comment: Interpretive Data Percent cell count reference ranges are not reported, since discordance with absolute values may lead to misinterpretation of CBC data. Current Interpretive Data was last revised on 2017. Testing performed by: [facility], [address], [place] [address] Monocyte pct 8.4 % CERNER BJWCH Comment: Interpretive Data Percent cell count reference ranges are not reported, since discordance with absolute values may lead to misinterpretation of CBC data. Current Interpretive Data was last revised on 2017. Testing performed by: [facility], [address], [place] [address] Eosinophil pct 1.0 % [facility] Comment: Interpretive Data Percent cell count reference ranges are not reported, since discordance with absolute values may lead to misinterpretation of CBC data. Current Interpretive Data was last revised on 2017. Testing performed by: [facility], [address], [place], [place] [address] Basophil pct 0.5 % CERNER MIAKELWCH Comment: Interpretive Data Percent cell count reference ranges are not reported, since discordance with absolute values may lead to misinterpretation of CBC data. Current Interpretive Data was last revised on 2017. Testing performed by: [facility], [address] [place] [address] Blood 12/09/2024 7:33 AM CDT 12/09/2024 7:34 AM CDT us Kemal Guillaume MD LAB BLOOD ORDERABLES F inal Result [facility] [address] Department [place] [address] * (ABNORMAL) CBC with auto differential (12/09/2024 7:33 AM CDT) WBC 3.8 3.8 - 9.9 K/cumm Comment:Testing performed by : [facility], [address], [place] [address] Hgb 13.5 13.0 - 17.5 g/dL CERNER BJWCH Comment:Testing performed by : [facility], [address], [place] [address] Hct 41.9 38.9 - 50.3 % CERNER BJWCH Comment:Testing performed by : [facility], [address], [place] [address] Plt 184 150 - 400 K/cumm CERNER BJWCH Comment:Testing performed by : [facility], [address], [place] [address] MPV 11.4 9.1 - 12.3 fL CERNER BJWCH Comment:Testing performed by : [facility], [address], [place] [address] RBC 4.67 4.30 - 5.80 M/cumm CERNER BJWCH Comment:Testing performed by : [facility], [address], [place] [address] MCV 89.7 81.3 - 96.4 fL CERNER BJWCH Comment:Testing performed by : [facility], [address], [place] [address] MCH 28.9 27.1 - 33.3 pg CERNER BJWCH Comment:Testing performed by : [facility], [address], [place] [address] MCHC 32.2(L) 32.3 - 35.7 g/dL CERNER BJWCH Comment:Testing performed by : [facility], [address], [place] [address] RDW CV 12.0 11.1 - 14.9 % CERNER BJWCH Comment:Testing performed by : [facility], [address], [place] [address] RDW SD 39.2 35.7 - 48.1 fL CERNER BJWCH Comment:Testing performed by : [facility], [address], [place] [address] NRBC abs 0.00 0.00 - 0.01 K/cumm GORAN HELM Comment:Testing performed by : [facility], [address], [place] [address] Blood 12/09/2024 7:33 AM CDT 12/09/2024 7:34 AM CDT us Kemal Guillaume MD LAB BLOOD ORDERABLES F inal Result [facility] [address] [facility] [place] [address] * Uric acid (12/09/2024 7:33 AM CDT) Uric acid 3.5 3.0 - 8.0 mg/dL Comment:Testing performed by : [facility], [address], [place] [address] Blood 12/09/2024 7:33 AM CDT 12/09/2024 7:49 AM CDT us Kemal uGillaume MD LAB BLOOD ORDERABLES F inal Result [facility] [address] [facility] [employer]. [facility] [place] [address] * Triglycerides (12/09/2024 7:33 AM CDT) Triglycerides [...] last revised on 2018. Testing performed by: [facility], [address] [place] [address] Blood 12/09/2024 7:33 AM CDT 12/09/2024 7:49 AM CDT Kemal Guillaume MD LAB BLOOD ORDERABLES F inal Result Performing Organization Address [facility] Co de Phone Number [facility] [address] [facility]. [facility] [place] [address] * (ABNORMAL) PSA diagnostic (12/09/2024 7:33 AM CDT) PSA-Total 11.13(H) <=5.40 ng/mL Comment: Interpretive Data AGE SEX REFERENCE INTERVAL 0 minutes-150 years Female None 0 minutes-49 years Male None 50-59 years Male 0-3.90 60-69 years Male 0-5.40 70-79 years Male 0-6.20 80-150 years Male 0-6.20 The [email or web address] PSA Total assay procedure was used. Results from different manufacturers or methods may not be comparable. Serial testing should be performed using the same method. Current interpretive data last revised 22. Testing performed by: [facility], [address] [facility] [address] Blood 12/09/2024 7:33 AM CDT 12/09/2024 7:49 AM CDT Kemal Guillaume MD LAB BLOOD ORDERABLES F inal Result Performing Organization Address [facility] Co de Phone Number GORAN YOUSSEFWCH [address] [address] [facility]. [facility] [employer] [place], [place] [id number] * Phosphorus (12/09/2024 7:33 AM CDT) Pathologist [facility] Phosphorus, pl 3.5 2.3 - 4.5 mg/dL Comment:Testing performed by : [facility], [address] [place] [address] Blood 12/09/2024 7:33 AM CDT 12/09/2024 7:49 AM CDT Kemal Guillaume MD LAB BLOOD ORDERABLES F inal Result [facility] [address] [address] [facility]. [facility] [place] [address] * Lactate dehydrogenase (LD) (12/09/2024 7:33 AM CDT) [facility] Lactate dehydrogenase (LDH) 135 100 - 250 Units/L Comment:Testing performed by : [facility], [address] [place] [address] Blood 12/09/2024 7:33 AM CDT 12/09/2024 7:49 AM CDT Kemal Guillaume MD LAB BLOOD ORDERABLES F inal Result Performing Organization Address [facility] Co de Phone Number GORAN BJCH [address] [employer]. [facility] [place] [address] * Gamma GT (12/09/2024 7:33 AM CDT) [facility] GGT 15 10 - 50 Units/L Comment:Testing performed by : [facility], [address] [place] [address] Blood 12/09/2024 7:33 AM CDT 12/09/2024 7:49 AM CDT Kemal Guillaume MD LAB BLOOD ORDERABLES F inal Result Performing Organization Address [facility]/ZIP Co de Phone Number [facility] [address] Department [place] [address] * (ABNORMAL) Creatine kinase (CK), total (12/09/2024 7:33 AM CDT) Pathologist [facility] CK 25(L) 40 - 300 Units/L Comment:Testing performed by : [facility], [address] [address] Blood 12/09/2024 7:33 AM CDT 12/09/2024 7:49 AM CDT Kemal Guillaume MD LAB BLOOD ORDERABLES F inal Result [facility] [address] Department [place] [address] * Comprehensive metabolic panel (12/09/2024 7:33 AM CDT) [facility] Sodium 144 135 - 145 mmol/L Comment:Testing performed by : [facility], [address], [place] [address] Potassium, pl 4.0 3.3 - 4.9 mmol/L CERNER BJWCH Comment:Testing performed by : [facility], [address], [place] [address] Chloride 105 97 - 110 mmol/L CERNER BJWCH Comment:Testing performed by : [facility], [address], [place] [address] CO2 29 22 - 32 mmol/L CERNER BJWCH Comment:Testing performed by : [facility], [address], [place] [address] Anion gap 10 2 - 15 mmol/L CERNER BJWCH Comment:Testing performed by : [facility], [address], [place] [address] BUN 17 6 - 25 mg/dL CERNER BJWCH Comment:Testing performed by : [facility], [address], [place] [address] Creatinine 0.85 0.80 - 1.30 mg/dL CERNER BJWCH Comment:Testing performed by : [facility], [address], [place] [address] Glucose 139 70 - 199 mg/dL CERNER [...] was last revised 2022. Testing performed by: [facility], [address], [place] [address] Calcium 9.6 8.5 - 10.3 mg/dL CERNER BJWCH Comment:Testing performed by : [facility], [address], [place] [address] Bilirubin, total 0.2 0.1 - 1.2 mg/dL CERNER BJWCH Comment:Testing performed by : [facility], [address], [place] [address] Protein, pl 7.0 6.5 - 8.5 g/dL CERNER BJWCH Comment:Testing performed by : [facility], [address], [place] [address] Albumin 4.2 3.5 - 5.0 g/dL CERNER BJWCH Comment:Testing performed by : [facility], [address], [place] [address] Alk phos 75 40 - 130 Units/L CERNER BJWCH Comment:Testing performed by : [facility], [address], [place] [address] ALT 18 7 - 55 Units/L CERNER BJWCH Comment:Testing performed by : [facility], [address], [place] [address] AST 21 10 - 50 Units/L CERNER BJWCH Comment:Testing performed by : [facility], [address], [place] [address] Blood 12/09/2024 7:33 AM CDT 12/09/2024 7:49 AM CDT us Kemal Guillaume MD LAB BLOOD ORDERABLES F inal Result [facility] [address] Department [place] [address] * NM Bone Imaging Whole Body (12/04/2024 [...] it. Electronically signed by: Jennifer Madison M.D. Kemal Guillaume MD IM NM PROCEDURES Vanessa l Result * CT [...] it. Electronically signed by: Matteo Navas M.D. [facility] Maxx Guillaume MD IMG CT PROCEDURES Vanessa l Result from Last 3 Months Insurance MEDICARE [facility] [place]IC[place] Care Teams Care Transition Mgr Relationship Specialty Start Date End Date Arvind Castellanos MD PCP - General 12/24/17 Patrick Perez MD [address] [address] Urology 07/27/21
--- NOTE | 2025-02-23 17:20 | ECG_ITS ---
Test Date: 2025-02-23 17:33:25 Measurements Intervals [place] Rate: 64 P: 111 NV: 191 QRS: 106 QRSD: 151 T: 69 QT: 388 QTc: 402 Interpretive Statements SINUS RHYTHM RIGHT BUNDLE BRANCH BLOCK BASELINE ARTIFACT- I, III, AVR, AVL, AVF ABNORMAL ECG No previous ECG available for comparison Electronically Signed On 02-23-2025 18:51:11 CDT by Yohan Hernandez D.O.
--- NOTE | 2025-02-23 17:20 | ED_ITS ---
HPI - General Adult General Chief complaint: Unspecified Stated complaint: light-headed; orthostatic bps Time Seen by Provider: 02/23/25 17:19 Source: patient Mode of arrival: ambulatory Limitations: no limitations History of Present Illness HPI narrative: Patient is a 69-year-old male with orthostatic hypotension and was seen this today. He went to the primary doctor and they sent him to the ER for further evaluation. He has a systolic blood pressure that dropped about 20 points when he stands up. No head injury or neurological changes otherwise. primary doctor said to hold his blood pressure medicine for few days and call with results of blood pressure. Onset (ago): day(s) ( One) Location: head ( wooziness) Radiation: non-radiation Severity: mild Severity scale (1-10): 2 Quality: other ( No pain) Pain Consistency: intermittent Relieving factors: other ( holding blood pressure medicine) Exacerbating factors: other ( standing) Associated symptoms: denies other symptoms Treatments prior to arrival: none Related Data Home Medications ?Medication ?Instructions ?Recorded ?Confirmed ?Last Taken ?Type amlodipine 10 mg tablet 10 mg PO DAILY 12/24/21 11/01/22 Unknown History ergocalciferol (vitamin D2) 1,250 1,250 mcg PO DAILY 12/24/21 11/01/22 Unknown History mcg (50,000 unit) capsule famotidine 40 mg tablet 40 mg PO BID 12/24/21 11/01/22 Unknown History hydrocodone 7.5 mg-acetaminophen 1 tablet PO Q4-6H PRN Pain 12/24/21 11/01/22 Unknown History 325 mg tablet leuprolide 3.75 mg intramuscular See Rx Instructions .Route .COMPLEX 12/24/21 11/01/22 Unknown History darolutamide 300 mg tablet (Nubeqa) 600 mg PO BID 10/18/22 11/01/22 Unknown History pantoprazole 40 mg tablet,delayed 40 mg PO BID 10/18/22 11/01/22 Unknown History release prochlorperazine maleate 10 mg 10 mg PO Q6H PRN Nausea 10/18/22 11/01/22 11/01/22 History tablet Allergies Allergy/AdvReac Type Severity Reaction Status Date / Time codeine Allergy Mild CONSTIPATIO Verified 02/23/25 17:21 N propoxyphene Allergy Nausea and Verified 02/23/25 17:21 Vomiting meperidine AdvReac Nausea and Verified 02/23/25 17:21 Vomiting Review of Systems 2 Review of Systems: All systems reviewed & are unremarkable except as noted in HPI and below Constitutional: Constitutional: Reports no additional constitutional complaints Eyes: Eyes: Reports no additional eye complaints ENT: Reports system reviewed and no additional complaints, except as documented Cardiovascular: Cardiovascular: Reports no additional cardiovascular complaints Respiratory: Respiratory: Reports no additional respiratory complaints Gastrointestinal: Gastrointestinal: Reports no additional gastrointestinal complaints Genitourinary: Genitourinary: Reports no additional male genitourinary complaints Musculoskeletal: Musculoskeletal: Reports no additional musculoskeletal complaints Integumentary/Breasts: Skin/Breast: Reports system reviewed and no additional complaints, except as docu Neurologic: Reports system reviewed and no additional complaints, except as documented Psychiatric: Psychiatric: Reports no additional psychiatric complaints Endocrine: Endocrine: Reports no additional endocrine complaints Hematologic/Lymphatic: Hematologic/Lymphatic: Reports no additional hematologic/lymphatic complaints Allergic/Immunologic: Allergic/Immunologic: Reports no additional allergic/immunologic complaints [facility] Past Medical History Medical History Colles' fracture of left radius, initial encounter for closed fracture Family History Family History Other Family history of cardiovascular disease Family history of malignant neoplasm Hypertension Social History Social History Smoking status: Never smoker Alcohol intake: current Substance use: current Substance use type: marijuana Other substance usage details: Daily Living arrangements: with family Spiritual care concerns: No Exam 2 Const: General: healthy appearing Nutritional Appearance: well nourished Orientation/consciousness: patient oriented x3 HENMT: Head: normal to inspection Ears: external ears normal F kari/Nose/Sinus: Normal external nose present Eyes: Conjunctivae: conjunctivae normal Pupils: Equal, round and reactive pupils present EOM: EOMs intact bilaterally Neck: Neck: normal visual inspection Chest: Chest palpation & inspection: normal inspection of the chest Resp: Effort & Inspection: normal respiratory effort and not labored A uscultation: clear to auscultation bilaterally and no crackles Cardio: Rate: regular rate Rhythm: regular rhythm Heart sounds: no murmurs GI: Inspection: non-distended GI Palp: Yes Soft to palpation and No Tenderness to palpation present (GI) Auscultation: normal bowel sounds : General: Yes bladder normal to palpation Back/Spine/Pelvis: Back: no CVA tenderness Skin: General skin exam: normal color Rashes: no rashes Wounds: no wounds Neuro: General: patient oriented x3 Cranial nerves: Yes Nystagmus not present Speech: normal speech Extrem: General: normal to inspection Psych: Mental Status: mental status grossly normal Affect: normal affect Attitude: cooperative Course Vital Signs Vital signs: Vital Signs Temperature 37.1 C 02/23/25 16:56 Pulse Rate 70 02/23/25 16:56 Respiratory Rate 16 02/23/25 16:56 Blood Pressure 168/81 H 02/23/25 16:56 Pulse Oximetry 99 02/23/25 16:56 Oxygen Delivery Room Air 02/23/25 16:56 Temperature 37.1 C 02/23/25 16:56 Pulse Rate 63 02/23/25 19:01 Respiratory Rate 22 H 02/23/25 19:01 Blood Pressure 152/76 H 02/23/25 19:00 Pulse Oximetry 98 02/23/25 19:01 Oxygen Delivery Room Air 02/23/25 16:56 Medical Decision Making MDM Narrative Medical decision making narrative: patient is a 69-year-old male with orthostatic hypotension and wooziness over the past day. We will do a cardiac workup and give IV fluids and check urinalysis. orthostatic recheck after a bag of fluid was normal values of both systolic and pulse. Minimal wooziness. Patient has lost weight over a period of time and primary doctor feels this is probably why he does not need as much blood pressure medicine. He is to hold his blood pressure medicine for few days until the primary doctor about the results. Vital Signs Vital Signs: Vital Signs Temperature 37.1 C 02/23/25 16:56 Pulse Rate 70 02/23/25 16:56 Respiratory Rate 16 02/23/25 16:56 Blood Pressure 168/81 H 02/23/25 16:56 Pulse Oximetry 99 02/23/25 16:56 Oxygen Delivery Room Air 02/23/25 16:56 Temperature 37.1 C 02/23/25 16:56 Pulse Rate 63 02/23/25 19:01 Respiratory Rate 22 H 02/23/25 19:01 Blood Pressure 152/76 H 02/23/25 19:00 Pulse Oximetry 98 02/23/25 19:01 Oxygen Delivery Room Air 02/23/25 16:56 Lab Data Lab results reviewed: Yes I reviewed the patient's lab results. 02/23/25 17:43 02/23/25 17:43 Labs: Lab Results 02/23/25 02/23/25 Range/Units 17:43 18:00 WBC 3.3 L (4.8-10.8) K/mm3 RBC 4.53 L (4.70-6.10) M/mm3 Hgb 13.0 (12.4-15.3) g/dL Hct 39.0 (37.0-46.0) % MCV 86.1 (78.0-102.0) fL MCH 28.7 (27.0-31.0) pg MCHC 33.3 (32-36) g/dL RDW 12.2 (11.6-14.4) % Plt Count 191 (150-420) K/mm3 MPV 10.3 (8.7-11.0) fl Immature Gran % (Auto) Not Reportable Neut % (Auto) Not Reportable Lymph % (Auto) Not Reportable Yell % (Auto) Not Reportable Eos % (Auto) Not Reportable Baso % (Auto) Not Reportable Lymph # (Auto) Not Reportable Yell # (Auto) Not Reportable Eos # (Auto) Not Reportable Baso # (Auto) Not Reportable Abs Immat Gran (auto) Not Reportable Absolute Neuts (auto) Not Reportable Absolute Nucleated RBC Not Reportable Total Counted 100 Neutrophils % (Manual) 71 (46-73) % Band Neutrophils % 0 (0-6) % Lymphocytes % (Manual) 17 L (18-44) % Monocytes % (Manual) 11 H (3-9) % Eosinophils % (Manual) 1 (1-6) % Nucleated RBC % Not Reportable Abs Neuts (Manual) 2.34 (1.3-6.7) K/mm3 Abs Lymphs (Manual) 0.56 L (1.1-4.5) K/mm3 Abs Monocytes (Manual) 0.36 (0.1-0.90) K/mm3 Absolute Eos (Manual) 0.03 (0.02-0.50) K/mm3 Platelet Estimate Adequate (Adequate) Schistocytes None seen Sodium 140 (137-145) mmol/L Potassium 3.8 (3.4-5.0) mmol/L Chloride 106 (98-107) mmol/L Carbon Dioxide 31 H (22-30) mmol/L Anion Gap 3 L (4-12) mmol/L BUN 17 (9-20) mg/dL Creatinine 0.75 (0.7-1.3) mg/dL Estim Creat Clear Calc 68 ml/min Estimated GFR > 60 (59 - ) Glucose 108 (65-110) mg/dL Calculated Osmolality 292 (285-295) mOsm/kg Calcium 9.1 (8.4-10.2) mg/dL Magnesium 2.1 (1.6-2.3) mg/dL Total Bilirubin 0.4 (0.2-1.3) mg/dL AST 29 (17-59) U/L ALT 17 (6-50) U/L Alkaline Phosphatase 51 (38-126) U/L Troponin I < 0.012 (0.000-0.034) ng/mL Total Protein 6.8 (6.3-8.2) g/dL Albumin 4.1 (3.5-5.1) g/dL Urine Color Yellow (Yellow) Urine Appearance Clear (Clear) Urine pH 5.5 (5.0-8.0) Ur Specific [place] >= 1.030 H (1.010-1.020) Urine Protein 2+ H (Negative) Urine Glucose (UA) Negative (Negative) Urine Ketones Negative (Negative) Ur Blood (Man) 2+ H (Negative) Urine Nitrate Negative (Negative) Urine Bilirubin Negative (Negative) Urine Urobilinogen 0.2 (0.2-1.0) mg/dL Leukocyte Esterase Rfl Negative (Negative) EVELINE/UL Urine RBC 3-5 H (0-2) /hpf Urine WBC 0-3 (0-3) /hpf Calcium Oxalate Crystal Present H (None) /hpf Urine Bacteria 1+ H (None) /hpf Urine Mucus Moderate H /lpf ECG Data EKG #1: Attestation: I personally reviewed and interpreted this ECG as follows: ECG completion date: 02/23/25 ECG completion time: 17:41 Interpretation: I had the EKG repeated due to the fact that there was baseline artifact; repeat EKG shows normal sinus rhythm with some PVCs occasional and right bundle branch block which accounts for the widened QRS and otherwise no ST or T-wave changes; right axis deviation EKG Interpretation: normal rate, sinus rhythm, no ectopy, non-specific ST changes, widened QRS, normal QT and right axis Discharge Plan Discharge Clinical Impression: Orthostatic hypotension, Dehydration Patient Disposition: Home Condition: Stable Additional Instructions: please follow-up with primary doctor in the next week. Please hold your blood pressure medicine as planned with the primary doctor and call with results in the next couple days. Patient Language: Portuguese Prescriptions: No Action leuprolide 3.75 mg Injectable See Rx Instructions .ROUTE .COMPLEX Rx Instructions: . famotidine 40 mg tablet 40 mg PO BID amlodipine 10 mg tablet 10 mg PO DAILY hydrocodone-acetaminophen 7.5-325 mg tablet 1 tablet PO Q4-6H PRN (Reason: Pain) ergocalciferol (vitamin D2) 1,250 mcg (50,000 unit) capsule 1,250 mcg PO DAILY prochlorperazine maleate 10 mg tablet 10 mg PO Q6H PRN (Reason: Nausea) pantoprazole 40 mg tablet,delayed release (DR/EC) 40 mg PO BID Nubeqa 300 mg tablet 600 mg PO BID Follow-up/Referrals: Arvind Castellanos MD [Primary Care Provider] - Time of Disposition: 19:05
--- OUTSIDE RECORDS SUMMARY | 2025-02-23 17:40 | XMS_ITS | Encounter Summary ---
Author Organization 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
--- OUTSIDE RECORDS SUMMARY | 2025-02-23 17:40 | XMS_ITS ---
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 Closed displaced fracture of greater tuberosity of left humerus 12/29/2021 Vitamin D deficiency, unspecified 08/22/2021 Prostate cancer 03/26/2021 Bilateral hip pain 04/11/2018 Current Treatment and Therapy Plans [id number] - [facility] - - [id number] PART 1B DOSE EXPANSION ARM Cohort 11&13(Q3W x 4 induction cycles, Q6W maintenance) - ARX 517* Plan Start Date:10/07/2024 Plan Provider:Kemal Guillaume MD Linked Problems Prostate cancer (HCC)Seconda ry and unspecified malignant neoplasm of intrapelvic lymph nodes (HCC) Treatment Medications Current Day (Day 2 2, Cycle 6 - Planned for 03/03/2025) Next Day (Day 1, Cycle 7 - Planned for 03/24/2025) INV-[facility] () [id number] IVPB in 250 mLINV-[facility] brimonidine 0.2 % ([id number])INV- [facility] Systane Complete PF ()INV- [facility] Systane Nighttime Lubricant () No medications scheduled. 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 Past Treatment and Therapy Plans Oncology Chemotherapy Treatment Plan Name Start Date Discontinue Date Treatment Medications Discontinue Reason Plan Provider Cycles Sipuleucel-T 14 Day Cycles - Prostate 01/24/2024 05/05/2024 [id number] actated ringers (PROVENGE) >50 million cell/250 mL Therapy Complete Kemal Guillaume MD 3 of 3 cycles started Apalutamide 240mg daily 28 day cycles 1 09/10/2022 No medications scheduled. Progression Kemal Guillaume MD 3 of 6 cycles started Lifetime Dose Tracking * Chemical Lifetime Dose Automatic Entry Manual Entr y DLP 2,062 mGycm 2,062 mGycm 0 mGycm
--- OUTSIDE RECORDS SUMMARY | 2025-02-23 17:40 | XMS_ITS | Referral Summary ---
Author Organization [facility] Address [address] [place] [address] Care Team Providers Care Necktie Stitcher Name Role Phone Arvind Castellanos MD Primary Care Provider [phone] Patrick Perez MD Unavailable [phone] Encounters Date Type Department Care Team Description 02/23/2025 Telephone [facility] [address] [place] [address] [address] [place] [phone] Sharmin De La Vega RN 02/12/2025 10:45 AM CDT Office Visit [facility] [address] [facility] [address] [place] [address] Puma Galindo MD Research exam (Primary Dx) 02/10/2025 10:20 AM CDT Office Visit [facility] [address] [place] [address] 100 [place] [address] Gladis Savage NP 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); Prostate cancer (HCC) 02/10/2025 10:45 AM CDT Infusion [facility] at [address] [place] [address] 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); Prostate cancer (HCC) 02/10/2025 9:15 AM CDT Lab [address] [place] [address] Prostate cancer (HCC); 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) 02/08/2025 8:09 AM CDT - 02/08/2025 11:59 PM CDT Hospital Encounter [facility] [address], [place] [address] Prostate cancer (HCC); 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); 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) Discharge Disposition: Discharge to home or self care 02/08/2025 8:09 AM CDT - 02/08/2025 11:59 PM CDT Hospital Encounter [facility] [address] [place] [address] Discharge Disposition: Discharge to home or self care 02/08/2025 8:08 AM CDT - 02/08/2025 11:59 PM CDT Hospital Encounter [facility] [address], [place] [address] Prostate cancer (HCC); 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); 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) Discharge Disposition: Discharge to home or self care 02/01/2025 10:58 AM CDT - 02/01/2025 11:59 PM CDT Hospital Encounter [facility] [address] [place] [address] Discharge Disposition: Discharge to home or self care 02/01/2025 10:58 AM CDT - 02/01/2025 11:59 PM CDT Hospital Encounter [facility] [place] [address] Prostate cancer (HCC); 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); 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) Discharge Disposition: Discharge to home or self care 01/20/2025 Orders Only [facility] at [facility] [address] [facility] [place] [address] Law, Radha Diaze, [facility] 01/20/2025 8:45 AM CDT Office Visit [facility] [address] [place] [address] [address] [place] [phone] Kemal Guillaume MD 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); Prostate cancer (HCC) 01/20/2025 7:45 AM CDT Lab [facility] at [address] [place] [phone] Prostate cancer (HCC); 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) 01/12/2025 Orders Only [facility] [address] [place] [address] [address] [place] [phone] Sharmin De La Vega, RN Prostate cancer (HCC) (Primary Dx); 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); 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) 01/04/2025 Orders Only [facility] [address] [place] [phone] Paulette Luna, [facility] 12/30/2024 11:30 AM CDT Infusion [facility] [address] [facility] Floor [address] [place] [address] 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); Prostate cancer (HCC) 12/30/2024 8:45 AM CDT Office Visit [facility] [address] [place] [address] [address] [place] [address] Kemal Guillaume MD 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); Prostate cancer (HCC) 12/30/2024 7:45 AM CDT Lab [address] [place] [phone] Prostate cancer (HCC); 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) 12/16/2024 Orders Only [facility] [address] [facility] [address] [place] [address] Kemal Guillaume MD 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); Prostate cancer (HCC) 12/09/2024 10:30 AM CDT Infusion [facility] [address] [facility] Floor [address] [place] [address] 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); Prostate cancer (HCC) 12/09/2024 8:45 AM CDT Office Visit [facility] [address] [facility] [address] [place] [address] Kemal Guillaume MD 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); Prostate cancer (HCC) 12/09/2024 7:45 AM CDT Lab [facility] [address] [facility] [place], [place] [address] Prostate cancer (HCC); 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) 12/04/2024 9:37 AM CDT - 12/04/2024 11:59 PM CDT Hospital Encounter [facility] [address] [place] [address] Kemal Guillaume MD Prostate cancer (HCC) Discharge Disposition: Discharge to home or self care 12/04/2024 9:36 AM CDT - 12/04/2024 11:59 PM CDT Hospital Encounter [facility] [address] [place] [address] Discharge Disposition: Discharge to home or self care 12/04/2024 9:36 AM CDT - 12/04/2024 11:59 PM CDT Hospital Encounter [facility] [address] [place] [address] Prostate cancer (HCC) Discharge Disposition: Discharge to [...] NIGHT 90 tablet 3 07/31/20 24 Active INV-[facility] brimonidine 0.2 % (/AR [id number]) 0.2 % ophthalmic solution Administer 1 drop into both eyes as directed 1 drop to each eye 10 minutes prior to each infusion. Remember to bring bottle to each infusion. Active INV-[facility] Systane Complete PF (/AR [id number]) drops eye drops Administer 1 drop into both eyes every 3 (three) hours Instill one drop into each eye at a minimum of 8 times each day. 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 Plan of Treatment Not on file Procedures [...] ur Yellow Yellow Comment:Testing performed by : [facility], [address], [place] [address] Clarity, ur Clear Clear CERNICHOLE BJJuliusCH Comment:Testing performed by : [facility], [address], [place] [address] Specific gravity, ur 1.027 1.003 - 1.030 GORAN BJWCH Comment:Testing performed by : [facility], [address], [place] [address] pH, urine 5.5 CERNER BJWCH Comment: Interpretive Data U rine pH is affected by diet, medications, systemic acid-base disturbances, and renal tubular function. pH may affect urinary stone formation. For example, urine pH below 6.0 may help reduce the tendency for calcium phosphate stones and pH greater than 6.0 may reduce the tendency for uric acid stone formation. Source: [employer] Current Interpretive Data was last revised on 2017 Testing performed by: [facility], [address], [place] [address] Protein, ur ql Trace Negative CERNER BJWCH Comment:Testing performed by : [facility], [address], [place] [address] Glucose, ur ql Negative Negative CERNER BJWCH Comment:Testing performed by : [facility], [address], [place] [address] Ketones, ur Negative Negative CERNER BJWCH Comment:Testing performed by : [facility], [address], [place] [address] Bilirubin, ur Negative Negative CERNER BJWCH Comment:Testing performed by : [facility], [address], [place] [address] Blood, ur Negative Negative CERNER BJWCH Comment:Testing performed by : [facility], [address], [place] [address] Urobilinogen, ur <2.0 <2.0 mg/dL CERNER BJWCH Comment:Testing performed by : [facility], [address], [place] [address] Nitrite, ur Negative Negative CERNER BJWCH Comment:Testing performed by : [facility], [address], [place] [address] Leukocyte esterase, ur Negative Negative CERNER BJWCH Comment:Testing performed by : [facility], [address], [place] [address] UA reflex comment Reflex conditions for microscopic UA and culture not met. CERNER BJWCH Comment:Testing performed by : [facility], [address], [place] [address] Urine 02/10/2025 7:45 AM CDT 02/10/2025 9:46 AM CDT us Gladis Savage NP LAB MICROBIOLOGY - [facility] ORDERABLES Final Result GORAN RASHEEDCH [address] Department [place] [address] * eGFR (02/10/2025 7:40 AM CDT) eGFR [...] was last reviewed 2021. Testing performed by: [facility], [address] [place] [address] Blood 02/10/2025 7:40 AM CDT 02/10/2025 8:17 AM CDT us Gladis Savage NP LAB BLOOD ORDERABLES Final Result [facility] [address] Department [place] [address] * (ABNORMAL) Differential, auto (02/10/2025 7:40 AM CDT) Neutrophil abs 3.80 1.50 - 6.50 K/cumm Comment:Testing performed by : [facility] [place], [address] [place] [address] Imm gran abs 0.01 0.00 - 0.10 K/cumm GORAN HELM Comment:Testing performed by : [facility], [address] [place] [address] Lymphocyte abs 0.56(L) 0.80 - 3.30 K/cumm GORAN HELM Comment:Testing performed by : [facility] 2, [address] [place] [address] Monocyte abs 0.40 0.20 - 0.80 K/cumm CERNER BJWCH Comment:Testing performed by : [facility], [place], [address] [place] [address] Eosinophil abs 0.04 0.00 - 0.50 K/cumm CERNER BJWCH Comment:Testing performed by : [facility], [place], [address], [place] [address] Basophil abs 0.04 0.00 - 0.10 K/cumm CERNER BJWCH Comment:Testing performed by : [facility] [place], [address], [place] [address] Neutrophil pct 78.5 % CERNER BJWCH Comment: Interpretive Data Percent cell count reference ranges are not reported, since discordance with absolute values may lead to misinterpretation of CBC data. Current Interpretive Data was last revised on 2017. Testing performed by: [facility] [place] [facility], [address] [place] [address] Imm gran pct 0.2 % CERNER BJWCH Comment: Interpretive Data Percent cell count reference ranges are not reported, since discordance with absolute values may lead to misinterpretation of CBC data. Current Interpretive Data was last revised on 2017. Testing performed by: [facility], [place] [facility], [address], [place] [address] Lymphocyte pct 11.5 % CERNER BJWCH Comment: Interpretive Data Percent cell count reference ranges are not reported, since discordance with absolute values may lead to misinterpretation of CBC data. Current Interpretive Data was last revised on 2017. Testing performed by: [facility] [place] [facility], [address] [place] [address] Monocyte pct 8.2 % CERNER BJWCH Comment: Interpretive Data Percent cell count reference ranges are not reported, since discordance with absolute values may lead to misinterpretation of CBC data. Current Interpretive Data was last revised on 2017. Testing performed by: [facility] 2, [address] [place] [address] Eosinophil pct 0.8 % GORAN HELM Comment: Interpretive Data Percent cell count reference ranges are not reported, since discordance with absolute values may lead to misinterpretation of CBC data. Current Interpretive Data was last revised on 2017. Testing performed by: [facility] , [address] [place] [address] Basophil pct 0.8 % GORAN HELM Comment: Interpretive Data Percent cell count reference ranges are not reported, since discordance with absolute values may lead to misinterpretation of CBC data. Current Interpretive Data was last revised on 2017. Testing performed by: [facility] , [address] [place] [address] Blood 02/10/2025 7:40 AM CDT 02/10/2025 7:42 AM CDT Gladis Savage FOOD AND BEVERAGE SERVICE MANAGER LAB BLOOD ORDERABLES Final Result GORAN [facility] [address] [facility]. Department [place] [address] * CBC with auto differential (02/10/2025 7:40 AM CDT) WBC 4.85 3.80 - 9.90 K/cumm Comment:Testing performed by : [facility] , [address] [place] [address] Hgb 13.4 13.0 - 17.5 g/dL GORAN HELM Comment:Testing performed by : [facility] 2, [address] [place] [address] Hct 40.3 38.9 - 50.3 % GORAN HELM Comment:Testing performed by : [facility] 2, [address] [place] [address] Plt 169 150 - 400 K/cumm GORAN HELM Comment:Testing performed by : [facility] [place] [facility], [address] [place] [address] MPV 10.7 9.1 - 12.3 fL CERNER BJWCH Comment:Testing performed by : [facility], [place] [facility], [address] [place] [address] RBC 4.59 4.30 - 5.80 M/cumm CERNER BJWCH Comment:Testing performed by : [place] [address], [address], [place] [address] MCV 87.8 81.3 - 96.4 fL CERNER BJWCH Comment:Testing performed by : [place] [address], [address] [place] [address] MCH 29.2 27.1 - 33.3 pg CERNICHOLE BJWCH Comment:Testing performed by : [place] [address], [address] [place] [address] MCHC 33.3 32.3 - 35.7 g/dL CERNER BJWCH Comment:Testing performed by : [facility], [place], [address] [place] [address] RDW CV 12.4 11.1 - 14.9 % CERNER BJWCH Comment:Testing performed by : [place] [address], [address] [place] [address] RDW SD 39.7 35.7 - 48.1 fL CERNER BJWCH Comment:Testing performed by : [place] [address], [address] [place] [address] ANC Prelim 3.80 1.50 - 6.50 K/cumm CERNER BJWCH Comment: Interpretive Data The rapid ANC is a preliminary automated count and may vary from the final ANC (Neut Abs) reported in the WBC differential that follows. Current interpretive data was last revised 2024. Testing performed by: [place] [address], [address] [place] [address] Blood 02/10/2025 7:40 AM CDT 02/10/2025 7:42 AM CDT [facility] LAB BLOOD ORDERABLES Final Result Performing Organization Address [facility] Co de Phone Number GORAN YOUSSEFCH [address] [place] [address] * Uric acid (02/10/2025 7:40 AM CDT) Uric acid 3.7 3.0 - 8.0 mg/dL Comment:Testing performed by : [facility], [address], [place] [address] Blood 02/10/2025 7:40 AM CDT 02/10/2025 8:17 AM CDT [facility] LAB BLOOD ORDERABLES Final Result Performing Organization Address [facility] de Phone Number GORAN YOUSSEFCH [address] [place] [address] * Triglycerides (02/10/2025 7:40 AM CDT) Triglycerides [...] last revised on 2018. Testing performed by: [facility], [address] [place] [address] Blood 02/10/2025 7:40 AM CDT 02/10/2025 8:17 AM CDT [facility] FOOD AND BEVERAGE SERVICE MANAGER LAB BLOOD ORDERABLES Final Result GORAN HELM [address] [place] [address] * (ABNORMAL) PSA diagnostic (02/10/2025 7:40 AM [...] data last revised 22. Testing performed by: [facility], [address] [place] [address] Blood 02/10/2025 7:40 AM CDT 02/10/2025 8:17 AM CDT [facility] LAB BLOOD ORDERABLES Final Result Performing Organization Address [facility] Co de Phone Number GORAN HELM [address] [facility] [employer] [place] [address] * Phosphorus (02/10/2025 7:40 AM CDT) Phosphorus, pl 3.5 2.3 - 4.5 mg/dL Comment:Testing performed by : [facility], [address] [place] [address] Blood 02/10/2025 7:40 AM CDT 02/10/2025 8:17 AM CDT [facility] FOOD AND BEVERAGE SERVICE MANAGER LAB BLOOD ORDERABLES Final Result Performing Organization Address [facility] de Phone Number GORAN YOUSSEFWCH [address] [place] [address] * Lactate dehydrogenase (LD) (02/10/2025 7:40 AM CDT) Lactate dehydrogenase (LDH) 130 100 - 250 Units/L Comment:Testing performed by : [facility], [address], [place] [address] Blood 02/10/2025 7:40 AM CDT 02/10/2025 8:17 AM CDT [facility] LAB BLOOD ORDERABLES Final Result Performing Organization Address [facility] de Phone Number GORAN BJWCH [address] [place] [address] * Gamma GT (02/10/2025 7:40 AM CDT) Pathologist [facility] GGT 17 10 - 50 Units/L Comment:Testing performed by : [facility], [address], [place] [address] Blood 02/10/2025 7:40 AM CDT 02/10/2025 8:17 AM CDT [facility] FOOD AND BEVERAGE SERVICE MANAGER LAB BLOOD ORDERABLES Final Result Performing Organization Address [facility] Co de Phone Number GORAN BJWCH [address] [place] [address] * (ABNORMAL) Creatine kinase (CK), total (02/10/2025 7:40 AM CDT) CK 23(L) 40 - 300 Units/L Comment:Testing performed by : [facility], [address], [place] [address] Blood 02/10/2025 7:40 AM CDT 02/10/2025 8:17 AM CDT Gladisguanakito Tracey Hussein DANG LAB BLOOD ORDERABLES Final Result [facility] [address] Department [place] [address] * Comprehensive metabolic panel (02/10/2025 7:40 AM CDT) Sodium 143 135 - 145 mmol/L Comment:Testing performed by : [facility], [address], [place] [address] Potassium, pl 4.1 3.3 - 4.9 mmol/L CERNICHOLE YOUSSEFWCH Comment:Testing performed by : [facility], [address], [place] [address] Chloride 103 97 - 110 mmol/L CERNICHOLE YOUSSEFWCH Comment:Testing performed by : [facility], [address], [place] [address] CO2 29 22 - 32 mmol/L CERNICHOLE BJWCH Comment:Testing performed by : [facility], [address], [place] [address] Anion gap 11 2 - 15 mmol/L CERNICHOLE BJWCH Comment:Testing performed by : [facility], [address], [place] [address] BUN 17 6 - 25 mg/dL CERNICHOLE BJWCH Comment:Testing performed by : [facility], [address], [place] [address] Creatinine 0.90 0.80 - 1.30 mg/dL CERNER BJWCH Comment:Testing performed by : [facility], [address], [place] [address] Glucose 174 70 - 199 mg/dL CERNICHOLE [...] was last revised 2022. Testing performed by: [facility], [address], [place] [address] Calcium 10.0 8.5 - 10.3 mg/dL CERNER BJWCH Comment:Testing performed by : [facility], [address], [place] [address] Bilirubin, total 0.2 0.1 - 1.2 mg/dL CERNER BJWCH Comment:Testing performed by : [facility], [address], [place] [address] Protein, pl 6.8 6.5 - 8.5 g/dL CERNER BJWCH Comment:Testing performed by : [facility], [address], [place] [address] Albumin 4.6 3.5 - 5.0 g/dL CERNER BJWCH Comment:Testing performed by : [facility], [address], [place] [address] Alk phos 67 40 - 130 Units/L CERNER BJWCH Comment:Testing performed by : [facility], [address], [place] [address] ALT 16 7 - 55 Units/L CERNER BJWCH Comment:Testing performed by : [facility], [address], [place] [address] AST 21 10 - 50 Units/L CERNER BJWCH Comment:Testing performed by : [facility], [address], [place] [address] Blood 02/10/2025 7:40 AM CDT 02/10/2025 8:17 AM CDT us Gladis Savage NP LAB BLOOD ORDERABLES Final Result [facility] [address] Department [place] [address] * [place] Bone Imaging Whole Body (02/08/2025 [...] man with prostate cancer diagnosed in 2009 (Harriman 4+3), status post radical prostatectomy, radiation and androgen deprivation therapy. He is currently being treated on the [id number] trial, since September 2024. The most recently [...] He is currently being treated on the [id number] trial, since September 2024. The most recently [...] EXAMINATION: PSMA-PET/CT DATE OF STUDY: 02/01/2025 SCANNER: [facility] [employer] Vision (NV1). This is a high-resolution scanner, which can result in higher SUVs (and even detection of previously unrecognized small lesions) compared to older scanners. RADIOPHARMACEUTICAL: 9.82 mCi F-18 DCFPyL (Piflufolastat) i.v. Injection site: Right antecubital HISTORY: 69-year-old man with prostate cancer diagnosed in 2009 (Sid 4+3), status post radical prostatectomy, radiation and androgen deprivation therapy. He is currently being treated on the [id number] trial, since September 2024. The most recently [...] obtained. The study was interpreted on the Ciklum workstation. The total scanned area was mid [...] EXAMINATION: PSMA-PET/CT DATE OF STUDY: 02/01/2025 SCANNER: [facility] N PET Vision (NV1). This is a [...] He is currently being treated on the [id number] trial, since September 2024. The most recently [...] obtained. The study was interpreted on the [employer] workstation. The total scanned area was mid [...] was last reviewed 2021. Testing performed by: [facility], [address] [place] [address] Blood 01/20/2025 7:43 AM CDT 01/20/2025 8:17 AM CDT us Kemal Guillaume MD LAB BLOOD ORDERABLES F inal Result [facility] [address] Department [place] [address] * (ABNORMAL) Differential, auto (01/20/2025 7:43 AM CDT) Neutrophil abs 4.30 1.50 - 6.50 K/cumm Comment:Testing performed by : [facility] [place] [facility], [address] [place] [address] Imm gran abs 0.01 0.00 - 0.10 K/cumm GORAN HELM Comment:Testing performed by : [facility] 2, [address] [place] [address] Lymphocyte abs 0.53(L) 0.80 - 3.30 K/cumm GORAN HELM Comment:Testing performed by : [facility] 2, [address] [place] [address] Monocyte abs 0.45 0.20 - 0.80 K/cumm GORAN HELM Comment:Testing performed by : [facility] 2, [address] [place] [address] Eosinophil abs 0.04 0.00 - 0.50 K/cumm GORAN HELM Comment:Testing performed by : [facility] 2, [address] [place] [address] Basophil abs 0.02 0.00 - 0.10 K/cumm CERNER BJWCH Comment:Testing performed by : [facility] [place] [facility], [address] [place] [address] Neutrophil pct 80.4 % CERNER BJWCH Comment: Interpretive Data Percent cell count reference ranges are not reported, since discordance with absolute values may lead to misinterpretation of CBC data. Current Interpretive Data was last revised on 2017. Testing performed by: [facility] [place] [facility], [address] [place] [address] Imm gran pct 0.2 % CERNER BJWCH Comment: Interpretive Data Percent cell count reference ranges are not reported, since discordance with absolute values may lead to misinterpretation of CBC data. Current Interpretive Data was last revised on 2017. Testing performed by: [facility], [address] [place] [address] Lymphocyte pct 9.9 % CERNER BJWCH Comment: Interpretive Data Percent cell count reference ranges are not reported, since discordance with absolute values may lead to misinterpretation of CBC data. Current Interpretive Data was last revised on 2017. Testing performed by: [facility], [place] [facility], [address] [place] [address] Monocyte pct 8.4 % CERNER BJWCH Comment: Interpretive Data Percent cell count reference ranges are not reported, since discordance with absolute values may lead to misinterpretation of CBC data. Current Interpretive Data was last revised on 2017. Testing performed by: [facility], [place] [facility], [address] [place] [address] Eosinophil pct 0.7 % CERNER BJWCH Comment: Interpretive Data Percent cell count reference ranges are not reported, since discordance with absolute values may lead to misinterpretation of CBC data. Current Interpretive Data was last revised on 2017. Testing performed by: [facility], [place] [facility], [address] [place] [address] Basophil pct 0.4 % CERNER BJWCH Comment: Interpretive Data Percent cell count reference ranges are not reported, since discordance with absolute values may lead to misinterpretation of CBC data. Current Interpretive Data was last revised on 2017. Testing performed by: [facility], [address] [place] [address] Blood 01/20/2025 7:43 AM CDT 01/20/2025 7:43 AM CDT Kemal Guillaume MD LAB BLOOD ORDERABLES F inal Result [facility] [address] [facility]. Department [place] [address] * CBC with auto differential (01/20/2025 7:43 AM CDT) WBC 5.35 3.80 - 9.90 K/cumm Comment:Testing performed by : [place] [address], [address] [place] [address] Hgb 13.3 13.0 - 17.5 g/dL GORAN RASHEED Comment:Testing performed by : [place] [address], [address] [place] [address] Hct 40.2 38.9 - 50.3 % GORAN YOUSSEFWESTEBAN Comment:Testing performed by : [address] [place] [address] Plt 181 150 - 400 K/cumm GORAN YOUSSEFWESTEBAN Comment:Testing performed by : [place] [address], [address] [place] [address] MPV 10.7 9.1 - 12.3 fL GORAN HELM Comment:Testing performed by : [facility], [address] [place] [address] RBC 4.61 4.30 - 5.80 M/cumm GORAN YOUSSEFWCH Comment:Testing performed by : [place] [address], [address] [place] [address] MCV 87.2 81.3 - 96.4 fL [facility] Comment:Testing performed by : [facility], [place] [facility], [address] [place] [address] MCH 28.9 27.1 - 33.3 pg GORAN RASHEEDCH Comment:Testing performed by : [facility], [address] [place] [address] MCHC 33.1 32.3 - 35.7 g/dL GORAN YOUSSEFCH Comment:Testing performed by : [facility], [place] [facility], [address] [place] [address] RDW CV 12.0 11.1 - 14.9 % GORAN YOUSSEFCH Comment:Testing performed by : [facility], [place] [facility], [address] [place] [address] RDW SD 38.7 35.7 - 48.1 fL GORAN YOUSSEFCH Comment:Testing performed by : [facility], [place] [facility], [address] [place] [address] ANC Prelim 4.30 1.50 - 6.50 K/cumm [facility] Comment: Interpretive Data The rapid ANC is a preliminary automated count and may vary from the final ANC (Neut Abs) reported in the WBC differential that follows. Current interpretive data was last revised 2024. Testing performed by: [facility], [place] [facility], [address] [place] [address] Blood 01/20/2025 7:43 AM CDT 01/20/2025 7:43 AM CDT us Kemal Guillaume MD LAB BLOOD ORDERABLES F inal Result G[facility]AN YOUSSEFW[facility] [address] [facility]. Department [place] [address] * Uric acid (01/20/2025 7:43 AM CDT) Uric acid 3.6 3.0 - 8.0 mg/dL Comment:Testing performed by : [facility], [address] [place] [address] Blood 01/20/2025 7:43 AM CDT 01/20/2025 8:17 AM CDT Kemal Guillaume MD LAB BLOOD ORDERABLES F inal Result Performing Organization Address City/[facility] Co de Phone Number GORAN BJWCH [address] [address] [facility]. [facility] [employer] [place] [address] * Triglycerides (01/20/2025 7:43 AM CDT) Triglycerides [...] last revised on 2018. Testing performed by: [facility], [address] [place] [address] Blood 01/20/2025 7:43 AM CDT 01/20/2025 8:17 AM CDT Kemal Guillaume MD LAB BLOOD ORDERABLES F inal Result Performing Organization Address City/[facility] Co de Phone Number GORAN BJWCH [address] [facility] [employer] [place] [address] * (ABNORMAL) PSA diagnostic (01/20/2025 7:43 AM [...] data last revised 22. Testing performed by: [facility], [id number] [place] [address] Blood 01/20/2025 7:43 AM CDT 01/20/2025 8:17 AM CDT Kemal Guillaume MD LAB BLOOD ORDERABLES F inal Result Performing Organization Address City/[facility]/ZIP Co de Phone Number [facility] [address] [facility]. [facility] [employer] [address] * Phosphorus (01/20/2025 7:43 AM CDT) [facility] Phosphorus, pl 2.9 2.3 - 4.5 mg/dL Comment:Testing performed by : [facility], [id number] [place] [address] Blood 01/20/2025 7:43 AM CDT 01/20/2025 8:17 AM CDT Kemal Guillaume MD LAB BLOOD ORDERABLES F inal Result GORAN BJ[facility] [address] [facility]. [facility] [employer] [place] [address] * Lactate dehydrogenase (LD) (01/20/2025 7:43 AM CDT) [facility] Lactate dehydrogenase (LDH) 143 100 - 250 Units/L Comment:Testing performed by : [facility], [address] [place] [address] Blood 01/20/2025 7:43 AM CDT 01/20/2025 8:17 AM CDT Kemal Guillaume MD LAB BLOOD ORDERABLES F inal Result Performing Organization Address [facility] Co de Phone Number GORAN BJWCH [address] [facility]. [facility] [place] [address] * Gamma GT (01/20/2025 7:43 AM CDT) Pathologist [facility] GGT 19 10 - 50 Units/L Comment:Testing performed by : [facility], [address] [place] [address] Blood 01/20/2025 7:43 AM CDT 01/20/2025 8:17 AM CDT Kemal Guillaume MD LAB BLOOD ORDERABLES F inal Result Performing Organization Address [facility] Co de Phone Number [facility] [address] [facility]. Department [place] [address] * (ABNORMAL) Creatine kinase (CK), total (01/20/2025 7:43 AM CDT) [facility] CK 22(L) 40 - 300 Units/L Comment:Testing performed by : [facility], [address] [place] [address] Blood 01/20/2025 7:43 AM CDT 01/20/2025 8:17 AM CDT Kemal Guillaume MD LAB BLOOD ORDERABLES F inal Result Performing Organization Address City/[facility] Co de Phone Number KALEBNER BJWCH [address] [facility]. [facility] [place] [address] * (ABNORMAL) Comprehensive metabolic panel (01/20/2025 7:43 AM CDT) Sodium 141 135 - 145 mmol/L Comment:Testing performed by : [facility], [address], [place] [address] Potassium, pl 3.7 3.3 - 4.9 mmol/L CERNER BJWCH Comment:Testing performed by : [facility], [address], [place] [address] Chloride 102 97 - 110 mmol/L CERNER BJWCH Comment:Testing performed by : [facility], [address], [place] [address] CO2 28 22 - 32 mmol/L CERNER BJWCH Comment:Testing performed by : [facility], [address], [place] [address] Anion gap 11 2 - 15 mmol/L CERNER BJWCH Comment:Testing performed by : [facility], [address], [place] [address] BUN 18 6 - 25 mg/dL CERNER BJWCH Comment:Testing performed by : [facility], [address], [place] [address] Creatinine 0.70(L) 0.80 - 1.30 mg/dL CERNER BJWCH Comment:Testing performed by : [facility], [address], [place] [address] Glucose 156 70 - 199 mg/dL CERNER [...] was last revised 2022. Testing performed by: [facility], [address], [place] [address] Calcium 9.7 8.5 - 10.3 mg/dL CERNER BJWCH Comment:Testing performed by : [facility], [address], [place] [address] Bilirubin, total 0.2 0.1 - 1.2 mg/dL CERNER BJWCH Comment:Testing performed by : [facility], [address], [place] [address] Protein, pl 6.9 6.5 - 8.5 g/dL CERNER BJWCH Comment:Testing performed by : [facility], [address], [place] [address] Albumin 4.3 3.5 - 5.0 g/dL CERNER BJWCH Comment:Testing performed by : [facility], [address], [place] [address] Alk phos 74 40 - 130 Units/L CERNER BJWCH Comment:Testing performed by : [facility], [address], [place] [address] ALT 16 7 - 55 Units/L CERNER BJWCH Comment:Testing performed by : [facility], [address], [place] [address] AST 24 10 - 50 Units/L CERNER BJWCH Comment:Testing performed by : [facility], [address], [place] [address] Blood 01/20/2025 7:43 AM CDT 01/20/2025 8:17 AM CDT Kemal Guillaume MD LAB BLOOD ORDERABLES F inal Result [facility] YOU[facility]FW[facility] [address] Department [place] [address] * Urinalysis reflex to microscopic and culture Urine (01/20/2025 7:37 AM CDT) Color, ur Yellow Yellow Comment:Testing performed by : [facility], [address], [place] [address] Clarity, ur Clear Clear CERNER BJWCH Comment:Testing performed by : [facility], [address], [place] [address] Specific gravity, ur 1.029 1.003 - 1.030 CERNER BJWCH Comment:Testing performed by : [facility], [address], [place] [address] pH, urine 5.5 CERNER BJWCH Comment: Interpretive Data U rine pH is affected by diet, medications, systemic acid-base disturbances, and renal tubular function. pH may affect urinary stone formation. For example, urine pH below 6.0 may help reduce the tendency for calcium phosphate stones and pH greater than 6.0 may reduce the tendency for uric acid stone formation. Source: [employer] Current Interpretive Data was last revised on 2017 Testing performed by: [facility], [address], [place] [address] Protein, ur ql Trace Negative CERNER BJWCH Comment:Testing performed by : [facility], [address], [place] [address] Glucose, ur ql Negative Negative CERNER BJWCH Comment:Testing performed by : [facility], [address], [place] [address] Ketones, ur Negative Negative CERNER BJWCH Comment:Testing performed by : [facility], [address], [place] [address] Bilirubin, ur Negative Negative CERNER BJWCH Comment:Testing performed by : [facility], [address], [place] [address] Blood, ur Negative Negative CERNER BJWCH Comment:Testing performed by : [facility], [address], [place] [address] Urobilinogen, ur <2.0 <2.0 mg/dL CERNER BJWCH Comment:Testing performed by : [facility], [address], [place] [address] Nitrite, ur Negative Negative CERNER BJWCH Comment:Testing performed by : [facility], [address], [place] [address] Leukocyte esterase, ur Negative Negative CERNER BJWCH Comment:Testing performed by : [facility], [address] [place] [address] UA reflex comment Reflex conditions for microscopic UA and culture not met. GORAN HELM Comment:Testing performed by : [facility], [address] [place] [address] Urine 01/20/2025 7:37 AM CDT 01/20/2025 8:20 AM CDT Kemal Guillaume MD LAB MICROBIOLOGY - GEN ERAL ORDERABLES Final Result GORAN RASHEEDCH [address] Department [place] [address] * (ABNORMAL) Urinalysis reflex to microscopic and culture Urine (12/30/2024 7:40 AM CDT) Color, ur Yellow Yellow Comment:Testing performed by : [facility], [address] [place] [address] Clarity, ur Clear Clear GORAN HELM Comment:Testing performed by : [facility], [address] [place] [address] Specific gravity, ur 1.030 1.003 - 1.030 GORAN HELM Comment:Testing performed by : [facility], [address] [place] [address] pH, urine 5.5 GORAN HELM Comment: Interpretive Data U rine pH is affected by diet, medications, systemic acid-base disturbances, and renal tubular function. pH may affect urinary stone formation. For example, urine pH below 6.0 may help reduce the tendency for calcium phosphate stones and pH greater than 6.0 may reduce the tendency for uric acid stone formation. Source: [employer] Current Interpretive Data was last revised on 2017 Testing performed by: [facility], [address], [place] [address] Protein, ur ql 1+(A) Negative GORAN HELM Comment:Testing performed by : [facility], [address], [place] [address] Glucose, ur ql Negative Negative CERNER BJWCH Comment:Testing performed by : [facility], [address], [place] [address] Ketones, ur Negative Negative CERNER BJWCH Comment:Testing performed by : [facility], [address], [place] [address] Bilirubin, ur Negative Negative CERNER BJWCH Comment:Testing performed by : [facility], [address], [place] [address] Blood, ur Negative Negative CERNER BJWCH Comment:Testing performed by : [facility], [address], [place] [address] Urobilinogen, ur <2.0 <2.0 mg/dL CERNER BJWCH Comment:Testing performed by : [facility], [address], [place] [address] Nitrite, ur Negative Negative CERNER BJWCH Comment:Testing performed by : [facility], [address], [place] [address] Leukocyte esterase, ur Negative Negative CERNER BJWCH Comment:Testing performed by : [facility], [address], [place] [address] UA reflex comment Reflex to microscopic UA will be performed. GORAN BJWCH Comment:Testing performed by : [facility], [address], [place] [address] Urine 12/30/2024 7:40 AM CDT 12/30/2024 8:16 AM CDT us Kemal Guillaume MD LAB MICROBIOLOGY - GEN ERAL ORDERABLES Final Result GORAN YOUSSEFW[facility] [address] Department [place] [address] * (ABNORMAL) Urinalysis, microscopic only (12/30/2024 7:40 AM CDT) WBC, ur 0-5 0 - 5 /HPF Comment:Testing performed by : [facility], [address], [place] [address] RBC, ur 0-2 0 - 2 /HPF GORAN HELM Comment:Testing performed by : [facility], [address], [place] [address] Mucous, ur Present(A) GORAN HELM Comment:Testing performed by : [facility], [address], [place] [address] Culture Reflex Comment Reflex conditions for urine culture (WBC >10) not met. GORAN EHLM Comment:Testing performed by : [facility], [address], [place] [address] Urine 12/30/2024 7:40 AM CDT 12/30/2024 8:16 AM CDT us Kemal Guillaume MD LAB URINE ORDERABLES F inal Result GORAN HELM [address] Department [place] [address] * eGFR (12/30/2024 7:35 AM CDT) eGFR [...] was last reviewed 2021. Testing performed by: [facility], [address] [place] [address] Blood 12/30/2024 7:35 AM CDT 12/30/2024 7:49 AM CDT Kemal Guillaume MD LAB BLOOD ORDERABLES F inal Result [facility] [address] Department of Laboratories [place], [place] [id number] * (ABNORMAL) Differential, auto (12/30/2024 7:35 AM CDT) Neutrophil abs 4.76 1.50 - 6.50 K/cumm Comment:Testing performed by : [facility], [place] [address] Imm gran abs 0.01 0.00 - 0.10 K/cumm CERNICHOLE BJW Comment:Testing performed by : [place] [address], [address] [place] [address] Lymphocyte abs 0.63(L) 0.80 - 3.30 K/cumm GORAN BJW Comment:Testing performed by : [facility], [address] [place] [address] Monocyte abs 0.45 0.20 - 0.80 K/cumm CERNICHOLE BJWCH Comment:Testing performed by : [place] [address], [address] [place] [address] Eosinophil abs 0.02 0.00 - 0.50 K/cumm GORAN BJWCH Comment:Testing performed by : [place] [address], [address] [place] [address] Basophil abs 0.04 0.00 - 0.10 K/cumm CERNICHOLE BJWCH Comment:Testing performed by : [facility], [address] [place] [address] Neutrophil pct 80.5 % CERNER BJWCH Comment: Interpretive Data Percent cell count reference ranges are not reported, since discordance with absolute values may lead to misinterpretation of CBC data. Current Interpretive Data was last revised on 2017. Testing performed by: [facility], [place] [facility], [address] [place] [address] Imm gran pct 0.2 % CERNER BJWCH Comment: Interpretive Data Percent cell count reference ranges are not reported, since discordance with absolute values may lead to misinterpretation of CBC data. Current Interpretive Data was last revised on 2017. Testing performed by: [facility], [place] [facility], [address] [place] [address] Lymphocyte pct 10.7 % CERNER BJWCH Comment: Interpretive Data Percent cell count reference ranges are not reported, since discordance with absolute values may lead to misinterpretation of CBC data. Current Interpretive Data was last revised on 2017. Testing performed by: [facility], [place] [facility], [address] [place] [address] Monocyte pct 7.6 % CERNER BJWCH Comment: Interpretive Data Percent cell count reference ranges are not reported, since discordance with absolute values may lead to misinterpretation of CBC data. Current Interpretive Data was last revised on 2017. Testing performed by: [facility], [place] [facility], [address] [place] [address] Eosinophil pct 0.3 % CERNER BJWCH Comment: Interpretive Data Percent cell count reference ranges are not reported, since discordance with absolute values may lead to misinterpretation of CBC data. Current Interpretive Data was last revised on 2017. Testing performed by: [facility], [place] [facility], [address] [place] [address] Basophil pct 0.7 % CERNER BJWCH Comment: Interpretive Data Percent cell count reference ranges are not reported, since discordance with absolute values may lead to misinterpretation of CBC data. Current Interpretive Data was last revised on 2017. Testing performed by: [facility], [place] [facility], [address] [place] [address] Blood 12/30/2024 7:35 AM CDT 12/30/2024 7:40 AM CDT us Kemal Guillaume MD LAB BLOOD ORDERABLES F inal Result [facility] [address] [address] [facility]. Department [place] [address] * CBC with auto differential (12/30/2024 7:35 AM CDT) WBC 5.91 3.80 - 9.90 K/cumm Comment:Testing performed by : [place] [address], [address] [place] [address] Hgb 13.4 13.0 - 17.5 g/dL GORAN RASHEED Comment:Testing performed by : [place] [address], [address] [place] [address] Hct 40.6 38.9 - 50.3 % [facility] Comment:Testing performed by : [place] [address], [address] [place] [address] Plt 208 150 - 400 K/cumm GORAN HELM Comment:Testing performed by : [facility], [address] [place] [address] MPV 10.3 9.1 - 12.3 fL GORAN HELM Comment:Testing performed by : [place] [address], [address] [place] [address] RBC 4.60 4.30 - 5.80 M/cumm GORAN HELM Comment:Testing performed by : [facility], [address] [place] [address] MCV 88.3 81.3 - 96.4 fL GORAN RASHEEDCH Comment:Testing performed by : [facility], [address] [place] [address] MCH 29.1 27.1 - 33.3 pg GORAN HELM Comment:Testing performed by : [facility], [place] [facility], [address] [place] [address] MCHC 33.0 32.3 - 35.7 g/dL GORAN HELM Comment:Testing performed by : [facility], [place] [facility], [address] [place] [address] RDW CV 11.9 11.1 - 14.9 % GORAN HELM Comment:Testing performed by : [facility], [place] [facility], [address] [place] [address] RDW SD 38.1 35.7 - 48.1 fL GORAN HELM Comment:Testing performed by : [facility], [place] [facility], [address] [place] [address] ANC Prelim 4.76 1.50 - 6.50 K/cumm GORAN HELM Comment: Interpretive Data The rapid ANC is a preliminary automated count and may vary from the final ANC (Neut Abs) reported in the WBC differential that follows. Current interpretive data was last revised 2024. Testing performed by: [facility], [place] [facility], [address] [place] [address] Blood 12/30/2024 7:35 AM CDT 12/30/2024 7:40 AM CDT us Kemal Guillaume MD LAB BLOOD ORDERABLES F inal Result [facility] [address] Department [place] [address] * Uric acid (12/30/2024 7:35 AM CDT) Uric acid 3.9 3.0 - 8.0 mg/dL Comment:Testing performed by : [facility], [address] [place] [address] Blood 12/30/2024 7:35 AM CDT 12/30/2024 7:49 AM CDT Kemal Guillaume MD LAB BLOOD ORDERABLES F inal Result Performing Organization Address [facility] de Phone Number [facility] [address] [facility]. [facility] [employer] [place] [address] * (ABNORMAL) Triglycerides (12/30/2024 7:35 AM CDT) [...] last revised on 2018. Testing performed by: [facility], [address] [place] [address] Blood 12/30/2024 7:35 AM CDT 12/30/2024 7:49 AM CDT Kemal Guillaume MD LAB BLOOD ORDERABLES F inal Result Performing Organization Address [facility] de Phone Number GORAN YOUSSEFCH [address] [facility] [employer] [place] [address] * (ABNORMAL) PSA diagnostic (12/30/2024 7:35 AM [...] data last revised 22. Testing performed by: [facility], [address] [place] [address] Blood 12/30/2024 7:35 AM CDT 12/30/2024 7:49 AM CDT Kemal Guillaume MD LAB BLOOD ORDERABLES F inal Result GORAN YOUSSEFCH [address] [facility] [employer] [place] [address] * Phosphorus (12/30/2024 7:35 AM CDT) Phosphorus, pl 3.7 2.3 - 4.5 mg/dL Comment:Testing performed by : [facility], [address] [place] [address] Blood 12/30/2024 7:35 AM CDT 12/30/2024 7:49 AM CDT Kemal Guillaume MD LAB BLOOD ORDERABLES F inal Result GORAN BJW[facility] [address] [facility] [employer] [place] [address] * Lactate dehydrogenase (LD) (12/30/2024 7:35 AM CDT) Lactate dehydrogenase (LDH) 141 100 - 250 Units/L Comment:Testing performed by : [facility], [address] [place] [address] Blood 12/30/2024 7:35 AM CDT 12/30/2024 7:49 AM CDT Kemal Guillaume MD LAB BLOOD ORDERABLES F inal Result Performing Organization Address [facility] Co de Phone Number GORAN YOUSSEFWCH [address] [facility] [place] [address] * Gamma GT (12/30/2024 7:35 AM CDT) GGT 15 10 - 50 Units/L Comment:Testing performed by : [facility], [address] [place] [address] Blood 12/30/2024 7:35 AM CDT 12/30/2024 7:49 AM CDT Kemal Guillaume MD LAB BLOOD ORDERABLES F inal Result Performing Organization Address [facility] de Phone Number GORAN BJWCH [address] Department [place] [address] * (ABNORMAL) Creatine kinase (CK), total (12/30/2024 7:35 AM CDT) Pathologist [facility] CK 25(L) 40 - 300 Units/L Comment:Testing performed by : [facility], [address] [place] [address] Blood 12/30/2024 7:35 AM CDT 12/30/2024 7:49 AM CDT Kemal Guillaume MD LAB BLOOD ORDERABLES F inal Result Performing Organization Address [facility] de Phone Number GORAN BJWCH [address] [facility] [place] [address] * Comprehensive metabolic panel (12/30/2024 7:35 AM CDT) Pathologist [facility] Sodium 143 135 - 145 mmol/L Comment:Testing performed by : [facility], [address] [place] [address] Potassium, pl 4.3 3.3 - 4.9 mmol/L GORAN RASHEEDCH Comment:Testing performed by : [facility], [address], [place] [address] Chloride 103 97 - 110 mmol/L CERNER BJWCH Comment:Testing performed by : [facility], [address], [place] [address] CO2 30 22 - 32 mmol/L CERNER BJWCH Comment:Testing performed by : [facility], [address], [place] [address] Anion gap 10 2 - 15 mmol/L CERNER BJWCH Comment:Testing performed by : [facility], [address], [place] [address] BUN 19 6 - 25 mg/dL CERNER BJWCH Comment:Testing performed by : [facility], [address], [place] [address] Creatinine 0.82 0.80 - 1.30 mg/dL CERNER BJWCH Comment:Testing performed by : [facility], [address], [place] [address] Glucose 169 70 - 199 mg/dL CERNER [...] was last revised 2022. Testing performed by: [facility], [address], [place] [address] Calcium 9.9 8.5 - 10.3 mg/dL CERNER BJWCH Comment:Testing performed by : [facility], [address], [place] [address] Bilirubin, total 0.3 0.1 - 1.2 mg/dL CERNER BJWCH Comment:Testing performed by : [facility], [address], [place] [address] Protein, pl 6.8 6.5 - 8.5 g/dL CERNICHOLE BJWCH Comment:Testing performed by : [facility], [address], [place] [address] Albumin 4.1 3.5 - 5.0 g/dL CERNICHOLE BJWCH Comment:Testing performed by : [facility], [address], [place] [address] Alk phos 72 40 - 130 Units/L CERNICHOLE BJWCH Comment:Testing performed by : [facility], [address], [place] [address] ALT 18 7 - 55 Units/L CERNICHOLE BJWCH Comment:Testing performed by : [facility], [address], [place] [address] AST 23 10 - 50 Units/L GORAN BJWCH Comment:Testing performed by : [facility], [address], [place] [address] Blood 12/30/2024 7:35 AM CDT 12/30/2024 7:49 AM CDT us Kemal Guillaume MD LAB BLOOD ORDERABLES F inal Result [facility] [address] Department [place] [address] * (ABNORMAL) Urinalysis reflex to microscopic and culture Urine (12/09/2024 7:45 AM CDT) Color, ur Yellow Yellow Comment:Testing performed by : [facility], [address], [place] [address] Clarity, ur Clear Clear CERNICHOLE BJWCH Comment:Testing performed by : [facility], [address], [place] [address] Specific gravity, ur 1.029 1.003 - 1.030 GORAN BJWCH Comment:Testing performed by : [facility], [address], [place] [address] pH, urine 5.5 CERNICHOLE BJWCH Comment: Interpretive Data U rine pH is affected by diet, medications, systemic acid-base disturbances, and renal tubular function. pH may affect urinary stone formation. For example, urine pH below 6.0 may help reduce the tendency for calcium phosphate stones and pH greater than 6.0 may reduce the tendency for uric acid stone formation. Source: [facility] [employer] Current Interpretive Data was last revised on 2017 Testing performed by: [facility], [address], [place] [address] Protein, ur ql 1+(A) Negative CERNER BJWCH Comment:Testing performed by : [facility], [address], [place] [address] Glucose, ur ql Negative Negative CERNER BJWCH Comment:Testing performed by : [facility], [address], [place] [address] Ketones, ur Negative Negative CERNER BJWCH Comment:Testing performed by : [facility], [address], [place] [address] Bilirubin, ur Negative Negative CERNER BJWCH Comment:Testing performed by : [facility], [address], [place] [address] Blood, ur Negative Negative CERNER BJWCH Comment:Testing performed by : [facility], [address], [place] [address] Urobilinogen, ur <2.0 <2.0 mg/dL CERNER BJWCH Comment:Testing performed by : [facility], [address], [place] [address] Nitrite, ur Negative Negative CERNER BJWCH Comment:Testing performed by : [facility], [address], [place] [address] Leukocyte esterase, ur Negative Negative CERNER BJWCH Comment:Testing performed by : [facility], [address], [place] [address] UA reflex comment Reflex to microscopic UA will be performed. CERNER BJWCH Comment:Testing performed by : [facility], [address], [place] [address] Urine 12/09/2024 7:45 AM CDT 12/09/2024 8:11 AM CDT Kemal Guillaume MD LAB MICROBIOLOGY - GEN ERAL ORDERABLES Final Result Performing Organization Address [facility] Co de Phone Number GORAN RASHEEDCH [address] Department [place] [address] * (ABNORMAL) Urinalysis, microscopic only (12/09/2024 7:45 AM CDT) WBC, ur 0-5 0 - 5 /HPF Comment:Testing performed by : [facility], [address], [place] [address] RBC, ur 3-5(A) 0 - 2 /HPF CERNER BJWCH Comment:Testing performed by : [facility], [address], [place] [address] Epithelial cells, squamous, ur 1-5 0 - 5 /HPF CERNER BJWCH Comment:Testing performed by : [facility], [address], [place] [address] Mucous, ur Present(A) CERNER BJWCH Comment:Testing performed by : [facility], [address], [place] [address] Culture Reflex Comment Reflex conditions for urine culture (WBC >10) not met. CERNER BJWCH Comment:Testing performed by : [facility], [address], [place] [address] Urine 12/09/2024 7:45 AM CDT 12/09/2024 8:11 AM CDT Kemal Guillaume MD LAB URINE ORDERABLES F inal Result Performing Organization Address [facility]/ZIP Co de Phone Number GORAN YOUSSEFWCH [address] [facility] [employer] [address] * eGFR (12/09/2024 7:33 AM CDT) eGFR [...] was last reviewed 2021. Testing performed by: [facility], [address] [place] [address] Blood 12/09/2024 7:33 AM CDT 12/09/2024 7:49 AM CDT us Kemal Guillaume MD LAB BLOOD ORDERABLES F inal Result [facility] [address] Department [place] [address] * (ABNORMAL) Differential, auto (12/09/2024 7:33 AM CDT) Neutrophil abs 2.8 1.5 - 6.5 K/cumm Comment:Testing performed by : [facility], [address] [place] [address] Imm gran abs 0.0 0.0 - 0.1 K/cumm GORAN HELM Comment:Testing performed by : [facility], [address] [place] [address] Lymphocyte abs 0.6(L) 0.8 - 3.3 K/cumm GORAN HELM Comment:Testing performed by : [facility], [address], [place] [address] Monocyte abs 0.3 0.2 - 0.8 K/cumm CERNER BJWCH Comment:Testing performed by : [facility], [address], [place] [address] Eosinophil abs 0.0 0.0 - 0.5 K/cumm CERNER BJWCH Comment:Testing performed by : [facility], [address], [place] [address] Basophil abs 0.0 0.0 - 0.1 K/cumm CERNER BJWCH Comment:Testing performed by : [facility], [address], [place] [address] Neutrophil pct 73.8 % CERNER BJWCH Comment: Interpretive Data Percent cell count reference ranges are not reported, since discordance with absolute values may lead to misinterpretation of CBC data. Current Interpretive Data was last revised on 2017. Testing performed by: [facility], [address], [place] [address] Imm gran pct 0.3 % CERNER BJWCH Comment: Interpretive Data Percent cell count reference ranges are not reported, since discordance with absolute values may lead to misinterpretation of CBC data. Current Interpretive Data was last revised on 2017. Testing performed by: [facility], [address], [place] [address] Lymphocyte pct 16.0 % CERNER BJWCH Comment: Interpretive Data Percent cell count reference ranges are not reported, since discordance with absolute values may lead to misinterpretation of CBC data. Current Interpretive Data was last revised on 2017. Testing performed by: [facility], [address], [place] [address] Monocyte pct 8.4 % CERNER BJWCH Comment: Interpretive Data Percent cell count reference ranges are not reported, since discordance with absolute values may lead to misinterpretation of CBC data. Current Interpretive Data was last revised on 2017. Testing performed by: [facility], [address], [place] [address] Eosinophil pct 1.0 % CERNER BJWCH Comment: Interpretive Data Percent cell count reference ranges are not reported, since discordance with absolute values may lead to misinterpretation of CBC data. Current Interpretive Data was last revised on 2017. Testing performed by: [facility], [address], [place] [address] Basophil pct 0.5 % GORAN HELM Comment: Interpretive Data Percent cell count reference ranges are not reported, since discordance with absolute values may lead to misinterpretation of CBC data. Current Interpretive Data was last revised on 2017. Testing performed by: [facility], [address], [place] [address] Blood 12/09/2024 7:33 AM CDT 12/09/2024 7:34 AM CDT Kemal Guillaume MD LAB BLOOD ORDERABLES F inal Result GORAN HELM [address] Department [place] [address] * (ABNORMAL) CBC with auto differential (12/09/2024 7:33 AM CDT) WBC 3.8 3.8 - 9.9 K/cumm Comment:Testing performed by : [facility], [address], [place] [address] Hgb 13.5 13.0 - 17.5 g/dL GORAN HELM Comment:Testing performed by : [facility], [address], [place] [address] Hct 41.9 38.9 - 50.3 % GORAN HELM Comment:Testing performed by : [facility], [address], [place] [address] Plt 184 150 - 400 K/cumm GORAN HELM Comment:Testing performed by : [facility], [address], [place] [address] MPV 11.4 9.1 - 12.3 fL GORAN HELM Comment:Testing performed by : [facility], [address], [place] [address] RBC 4.67 4.30 - 5.80 M/cumm [facility] Comment:Testing performed by : [facility], [address], [place] [address] MCV 89.7 81.3 - 96.4 fL GORAN BJWCH Comment:Testing performed by : [facility], [address], [place] [address] MCH 28.9 27.1 - 33.3 pg CERNICHOLE BJWCH Comment:Testing performed by : [facility], [address], [place] [address] MCHC 32.2(L) 32.3 - 35.7 g/dL [facility] Comment:Testing performed by : [facility], [address], [place] [address] RDW CV 12.0 11.1 - 14.9 % [facility] Comment:Testing performed by : [facility], [address], [place] [address] RDW SD 39.2 35.7 - 48.1 fL [facility] Comment:Testing performed by : [facility], [address], [place] [address] NRBC abs 0.00 0.00 - 0.01 K/cumm [facility] Comment:Testing performed by : [facility], [address], [place] [address] Blood 12/09/2024 7:33 AM CDT 12/09/2024 7:34 AM CDT us Kemal Guillaume MD LAB BLOOD ORDERABLES F inal Result GORAN RASHEED [address] Department [place] [address] * Uric acid (12/09/2024 7:33 AM CDT) Pathologist [facility] Uric acid 3.5 3.0 - 8.0 mg/dL Comment:Testing performed by : [facility], [address] [place] [address] Blood 12/09/2024 7:33 AM CDT 12/09/2024 7:49 AM CDT Kemal Guillaume MD LAB BLOOD ORDERABLES F inal Result Performing Organization Address [facility] Co de Phone Number GORAN YOUSSEFCH [address] [facility] [place] [address] * Triglycerides (12/09/2024 7:33 AM CDT) Triglycerides [...] last revised on 2018. Testing performed by: [facility], [address] [place] [place] [address] Blood 12/09/2024 7:33 AM CDT 12/09/2024 7:49 AM CDT Kemal Guillaume MD LAB BLOOD ORDERABLES F inal Result Performing Organization Address [facility] Co de Phone Number GORAN BJWCH [address] [facility] [employer] [place] [address] * (ABNORMAL) PSA diagnostic (12/09/2024 7:33 AM [...] data last revised 22. Testing performed by: [facility], [address] [facility] [place] [address] Blood 12/09/2024 7:33 AM CDT 12/09/2024 7:49 AM CDT Kemal Guillaume MD LAB BLOOD ORDERABLES F inal Result Performing Organization Address [facility] Co de Phone Number GORAN YOUSSEFCH [address] [facility]. [facility] [place] [address] * Phosphorus (12/09/2024 7:33 AM CDT) [facility] Phosphorus, pl 3.5 2.3 - 4.5 mg/dL Comment:Testing performed by : [facility], [address] [place] [address] Blood 12/09/2024 7:33 AM CDT 12/09/2024 7:49 AM CDT Kemal Guillaume MD LAB BLOOD ORDERABLES F inal Result GORAN BJCH [address] [employer] [facility] [employer] [place] [address] * Lactate dehydrogenase (LD) (12/09/2024 7:33 AM CDT) [facility] Lactate dehydrogenase (LDH) 135 100 - 250 Units/L Comment:Testing performed by : [facility], [address] [facility] [place] [address] Blood 12/09/2024 7:33 AM CDT 12/09/2024 7:49 AM CDT Kemal Guillaume MD LAB BLOOD ORDERABLES F inal Result Performing Organization Address [facility] Co de Phone Number GORAN BJCH [address] [facility] [place] [address] * Gamma GT (12/09/2024 7:33 AM CDT) GGT 15 10 - 50 Units/L Comment:Testing performed by : [facility], [address] [place], [place] [address] [address] Blood 12/09/2024 7:33 AM CDT 12/09/2024 7:49 AM CDT Kemal Guillaume MD LAB BLOOD ORDERABLES F inal Result Performing Organization Address [facility] Co de Phone Number [facility] [address] [place] [address] * (ABNORMAL) Creatine kinase (CK), total (12/09/2024 7:33 AM CDT) Pathologist [facility] CK 25(L) 40 - 300 Units/L Comment:Testing performed by : [facility], [address] [place] [address] Blood 12/09/2024 7:33 AM CDT 12/09/2024 7:49 AM CDT Kemal Guillaume MD LAB BLOOD ORDERABLES F inal Result Performing Organization Address [facility] Co de Phone Number [facility] [address] [place] [address] * Comprehensive metabolic panel (12/09/2024 7:33 AM CDT) Pathologist [facility] Sodium 144 135 - 145 mmol/L Comment:Testing performed by : [facility], [address], [place] [address] Potassium, pl 4.0 3.3 - 4.9 mmol/L CERNER BJWCH Comment:Testing performed by : [facility], [address], [place] [address] Chloride 105 97 - 110 mmol/L CERNER BJWCH Comment:Testing performed by : [facility], [address], [place] [address] CO2 29 22 - 32 mmol/L CERNER BJWCH Comment:Testing performed by : [facility], [address], [place] [address] Anion gap 10 2 - 15 mmol/L CERNER BJWCH Comment:Testing performed by : [facility], [address], [place] [address] BUN 17 6 - 25 mg/dL CERNER BJWCH Comment:Testing performed by : [facility], [address], [place] [address] Creatinine 0.85 0.80 - 1.30 mg/dL CERNER BJWCH Comment:Testing performed by : [facility], [address], [place] [address] Glucose 139 70 - 199 mg/dL CERNER [...] was last revised 2022. Testing performed by: [facility], [address], [place] [address] Calcium 9.6 8.5 - 10.3 mg/dL CERNER BJWCH Comment:Testing performed by : [facility], [address], [place] [address] Bilirubin, total 0.2 0.1 - 1.2 mg/dL CERNER BJWCH Comment:Testing performed by : [facility], [address], [place] [address] Protein, pl 7.0 6.5 - 8.5 g/dL CERNER BJWCH Comment:Testing performed by : [facility], [address], [place] [address] Albumin 4.2 3.5 - 5.0 g/dL CERNER BJWCH Comment:Testing performed by : [facility], [address], [place] [address] Alk phos 75 40 - 130 Units/L CERNER BJWCH Comment:Testing performed by : [facility], [address], [place] [address] ALT 18 7 - 55 Units/L CERNER BJWCH Comment:Testing performed by : [facility], [address], [place] [address] AST 21 10 - 50 Units/L CERNER BJWCH Comment:Testing performed by : [facility], [address], [place] [address] Blood 12/09/2024 7:33 AM CDT 12/09/2024 7:49 AM CDT Kemal Guillaume MD LAB BLOOD ORDERABLES F inal Result [facility] [address] Department [place] [address] * NM Bone Imaging Whole Body (12/04/2024 [...] it. Electronically signed by: Jennifer Madison M.D. [facility] Maxx Guillaume MD IMG NM PROCEDURES [...] Result from Last 3 Months Insurance MEDICARE [employer] [employer] [place] [address] [employer] Care Teams Necktie Stitcher Relationship Specialty Start Date End Date Arvind Castellanos MD PCP - General 12/24/17 Patrick Perez MD [address] [address] Urology 07/27/21
--- OUTSIDE RECORDS SUMMARY | 2025-02-23 17:40 | XMS_ITS | Encounter Summary ---
Author Organization [facility] Address [address] [place] [address] Phone Care Team Providers Care Cardroom Manager Name Role Phone Arvind Castellanos MD Primary Care Provider [phone] Patrick Perez MD Unavailable [phone] Encounter Details Date Type Department Care Team (Late st Contact Info) Description 02/23/2025 Telephone [facility] Oncology [address] [facility] [address] [place] [id number] Sharmin De La Vgea RN Social History Tobacco Use Types Packs/Day Years Used Date Smoking Tobacco: Never Smokeless Tobacco: Never Alcohol Use Standard Drinks/Week Comments No 0 (1 standard drink = 0.6 oz pur e alcohol) Sex and Gender Information Value Date Recorded Sex Assigned at Not on file Legal Sex Male 4:46 AM [employer] Gender Identity Not on file Sexual Orientation [...] take him to the local ED in [place], [place]. Advised to let them know he was receiving treatment for cancer. Could just need IVF's, but need to find out what's going on. Mrs. Collazo understood and agreed with the plan. Team updated. documented in this encounter Plan of Treatment Not on file documented as of this encounter Visit Diagnoses Not on filedocumented in this encounter Care Teams Cardroom Manager Relationship Specialty Start Date End Date Arvind Castellanos MD PCP - General 12/24/17 Patrick Perez MD [address] [address] Urology 07/27/21 documented as of this encounter
--- OUTSIDE RECORDS SUMMARY | 2025-02-23 17:41 | XMS_ITS | Clinical Summary ---
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 Remember to bring bottle to each infusion. Active [facility] Systane Complete PF (/AR [id number]) drops eye drops Administer 1 drop into both eyes every 3 (three) hours Instill one drop into each eye at a minimum of 8 times each day. Active [facility] Systane Nighttime Lubricant (/AR [id number]) 94-3 % ointment eye ointment Apply 1 [...] Type Department Care Team Description 02/23/[address] [facility] On[facility] [address] [facility] [address] [place] [address] Sharmin De La Vega RN 02/12/2025 10:45 AM CDT Office Visit 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) 02/08/2025 8:09 AM CDT - 02/08/2025 11:59 PM CDT Hospital Encounter [facility] [address], [place] [address] Prostate cancer (HCC); 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); 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) Discharge Disposition: Discharge to home or self care 02/08/2025 8:09 AM CDT - 02/08/2025 11:59 PM CDT Hospital Encounter [facility] [address], [place] [address] Discharge Disposition: Discharge to home or self care 02/08/2025 8:08 AM CDT - 02/08/2025 11:59 PM CDT Hospital Encounter [facility] [address], [place] [address] Prostate cancer (HCC); 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); 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) Discharge Disposition: Discharge to home or self care 02/01/2025 10:58 AM CDT - 02/01/2025 11:59 PM CDT Hospital Encounter [facility] [address] [place] [address] Discharge Disposition: Discharge to home or self care 02/01/2025 10:58 AM CDT - 02/01/2025 11:59 PM CDT Hospital Encounter [facility] [address] [place] [address] Prostate cancer (HCC); 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) 12/04/2024 9:37 AM CDT - 12/04/2024 11:59 PM CDT Hospital Encounter [facility] [address], [place] [address] Kemal Guillaume MD Prostate cancer (HCC) Discharge Disposition: Discharge to home or self care 12/04/2024 9:36 AM CDT - 12/04/2024 11:59 PM CDT Hospital Encounter [facility] [address] [place] [address] Discharge Disposition: Discharge to home or self care 12/04/2024 9:36 AM CDT - 12/04/2024 11:59 PM CDT Hospital Encounter [facility] [address] [place] [address] Prostate cancer (HCC) Discharge Disposition: Discharge to [...] on file 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 Gender Identity Not on file Sexual [...] 177.3 cm (5' 9.8) 10/14/2024 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 Body Mass Index 19.15 10/14/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 pH may affect urinary stone formation. For example, urine pH below 6.0 may help reduce the tendency for calcium phosphate stones and pH greater than 6.0 may reduce the tendency for uric acid stone formation. Source: [employer]ata Mapidy Current Interpretive Data was last revised on 2017 Testing performed by: [facility], [address], [place] [address] Protein, ur ql Trace Negative CERNER BJWCH Comment:Testing performed by : [facility], [address], [place] [address] Glucose, ur ql Negative Negative CERNER BJWCH Comment:Testing performed by : [facility], [address], [place] [address] Ketones, ur Negative Negative CERNER BJWCH Comment:Testing performed by : [facility], [address], [place] [address] Bilirubin, ur Negative Negative CERNER BJWCH Comment:Testing performed by : [facility], [address], [place] [address] Blood, ur Negative Negative CERNER BJWCH Comment:Testing performed by : [facility], [address], [place] [address] Urobilinogen, ur <2.0 <2.0 mg/dL CERNER BJWCH Comment:Testing performed by : [facility], [address], [place] [address] Nitrite, ur Negative Negative CERNER BJWCH Comment:Testing performed by : [facility], [address], [place] [address] Leukocyte esterase, ur Negative Negative CERNER BJWCH Comment:Testing performed by : [facility], [address] [place] [address] UA reflex comment Reflex conditions for microscopic UA and culture not met. GORAN HELM Comment:Testing performed by : [facility], [address] [place] [address] Urine 02/10/2025 7:45 AM CDT 02/10/2025 9:46 AM CDT Gladis Savage NP LAB MICROBIOLOGY - NERAL ORDERABLES Final Result [facility] [address]. [place] [address] * eGFR (02/10/2025 7:40 AM CDT) eGFR [...] last reviewed 2021. Testing performed by: [facility], [address] [place], [place] [address] Blood 02/10/2025 7:40 AM CDT 02/10/2025 8:17 AM CDT Gladis Tracey [facility] LAB BLOOD ORDERABLES Final Result [facility] [address] [facility]. Department of Laboratories [place], [place] [id number] * (ABNORMAL) Differential, auto (02/10/2025 7:40 AM CDT) Neutrophil abs 3.80 1.50 - 6.50 K/cumm Comment:Testing performed by : [place] [address] [place] [address] Imm gran abs 0.01 0.00 - 0.10 K/cumm CERNER BJWCH Comment:Testing performed by : [place] [address] [place] [address] Lymphocyte abs 0.56(L) 0.80 - 3.30 K/cumm CERNER BJWCH Comment:Testing performed by : [place] [address] [place] [address] Monocyte abs 0.40 0.20 - 0.80 K/cumm CERNER BJWCH Comment:Testing performed by : [place] [address] [place] [address] Eosinophil abs 0.04 0.00 - 0.50 K/cumm CERNER BJWCH Comment:Testing performed by : [place] [address] [place] [address] Basophil abs 0.04 0.00 - 0.10 K/cumm CERNER BJWCH Comment:Testing performed by : [address] [place] [address] Neutrophil pct 78.5 % CERNER BJWCH Comment: Interpretive Data Percent cell count reference ranges are not reported, since discordance with absolute values may lead to misinterpretation of CBC data. Current Interpretive Data was last revised on 2017. Testing performed by: [place] [address], [address] [place] [address] Imm gran pct 0.2 % [facility] Comment: Interpretive Data Percent cell count reference ranges are not reported, since discordance with absolute values may lead to misinterpretation of CBC data. Current Interpretive Data was last revised on 2017. Testing performed by: [facility], [facility], [address] [place] [address] Lymphocyte pct 11.5 % CERNICHOLE YOUSSEFCH Comment: Interpretive Data Percent cell count reference ranges are not reported, since discordance with absolute values may lead to misinterpretation of CBC data. Current Interpretive Data was last revised on 2017. Testing performed by: [facility], [facility], [address] [place] [address] Monocyte pct 8.2 % CERNICHOLE YOUSSEFEST[facility] Comment: Interpretive Data Percent cell count reference ranges are not reported, since discordance with absolute values may lead to misinterpretation of CBC data. Current Interpretive Data was last revised on 2017. Testing performed by: [facility], [facility], [address] [place] [address] Eosinophil pct 0.8 % GORAN YOUSSEFESTEBAN Comment: Interpretive Data Percent cell count reference ranges are not reported, since discordance with absolute values may lead to misinterpretation of CBC data. Current Interpretive Data was last revised on 2017. Testing performed by: [facility], [facility], [address] [place] [address] Basophil pct 0.8 % GORAN YOUSSEFESTEBAN Comment: Interpretive Data Percent cell count reference ranges are not reported, since discordance with absolute values may lead to misinterpretation of CBC data. Current Interpretive Data was last revised on 2017. Testing performed by: [facility], [facility], [address] [place] [address] Blood 02/10/2025 7:40 AM CDT 02/10/2025 7:42 AM CDT Gladis Savage NP LAB BLOOD ORDERABLES Final Result GORAN HELM [address] [facility] [place] [address] * CBC with auto differential (02/10/2025 7:40 AM CDT) WBC 4.85 3.80 - 9.90 K/cumm Comment:Testing performed by : [place] [address], [address] [place] [address] Hgb 13.4 13.0 - 17.5 g/dL GORAN RASHEEDCH Comment:Testing performed by : [place] [address], [address] [place] [address] Hct 40.3 38.9 - 50.3 % GORAN RASHEEDCH Comment:Testing performed by : [place] [address], [address] [place] [address] Plt 169 150 - 400 K/cumm GORAN RASHEEDCH Comment:Testing performed by : [place] [address], [place] [address] MPV 10.7 9.1 - 12.3 fL [facility] Comment:Testing performed by : [place] [address], [address] [place] [address] RBC 4.59 4.30 - 5.80 M/cumm CERNICHOLE HELM Comment:Testing performed by : [address] [place] [address] MCV 87.8 81.3 - 96.4 fL GORAN YOUSSEFCH Comment:Testing performed by : [place] [address], [address], [place] [address] MCH 29.2 27.1 - 33.3 pg CERNICHOLE YOUSSEFWCH Comment:Testing performed by : [facility], [address], [place] [address] MCHC 33.3 32.3 - 35.7 g/dL GORAN YOUSSEFWCH Comment:Testing performed by : [place] [address], [address] [place] [address] RDW CV 12.4 11.1 - 14.9 % GORAN HELM Comment:Testing performed by : [facility], [facility], [address] [place] [address] RDW SD 39.7 35.7 - 48.1 fL GORAN HELM Comment:Testing performed by : [facility], [facility], [address] [place] [address] ANC Prelim 3.80 1.50 - 6.50 K/cumm GORAN HELM Comment: Interpretive Data The rapid ANC is a preliminary automated count and may vary from the final ANC (Neut Abs) reported in the WBC differential that follows. Current interpretive data was last revised 2024. Testing performed by: [facility], [facility], [address] [place] [address] Blood 02/10/2025 7:40 AM CDT 02/10/2025 7:42 AM CDT [facility] LAB BLOOD ORDERABLES Final Result Performing Organization Address City/[facility] Co de Phone Number GORAN [place] [facility] [address] [facility]. [facility] [place] [address] * Uric acid (02/10/2025 7:40 AM CDT) Uric acid 3.7 3.0 - 8.0 mg/dL Comment:Testing performed by : [facility], [address] [place] [address] Blood 02/10/2025 7:40 AM CDT 02/10/2025 8:17 AM CDT [facility] LAB BLOOD ORDERABLES Final Result Performing Organization Address City/[facility]/ZIP Co de Phone Number [facility] [address] [facility]. [facility] [place] [address] * Triglycerides (02/10/2025 7:40 AM CDT) Triglycerides [...] revised on 2018. Testing performed by: [facility], [address] [place] [address] Blood 02/10/2025 7:40 AM CDT 02/10/2025 8:17 AM CDT Gladis Savage NP LAB BLOOD ORDERABLES Final Result [facility]AN [facility] [address] [place] [address] * (ABNORMAL) PSA diagnostic (02/10/2025 [...] last revised 22. Testing performed by: [facility], [address] [place] [address] Blood 02/10/2025 7:40 AM CDT 02/10/2025 8:17 AM CDT [facility] LAB BLOOD ORDERABLES Final Result Performing Organization Address [facility] de Phone Number GORAN RASHEEDCH [address] [place] [address] * Phosphorus (02/10/2025 7:40 AM CDT) [facility] Phosphorus, pl 3.5 2.3 - 4.5 mg/dL Comment:Testing performed by : [facility], [address] [facility] [place] [place] [address] Blood 02/10/2025 7:40 AM CDT 02/10/2025 8:17 AM CDT [facility] LAB BLOOD ORDERABLES Final Result Performing Organization Address [facility] de Phone Number GORAN YOUSSEFCH [address] [place] [address] * Lactate dehydrogenase (LD) (02/10/2025 7:40 AM CDT) [facility] Lactate dehydrogenase (LDH) 130 100 - 250 Units/L Comment:Testing performed by : [facility], [address] [place], [place] [address], [place] [address] Blood 02/10/2025 7:40 AM CDT 02/10/2025 8:17 AM CDT [facility] LAB BLOOD ORDERABLES Final Result Performing Organization Address [facility] de Phone Number GORAN YOUSSEFCH [address] [place] [address] * Gamma GT (02/10/2025 7:40 AM CDT) [facility] GGT 17 10 - 50 Units/L Comment:Testing performed by : [facility], [address], [place] [address] Blood 02/10/2025 7:40 AM CDT 02/10/2025 8:17 AM CDT [facility] LAB BLOOD ORDERABLES Final Result Performing Organization Address [facility] de Phone Number GORAN YOUSSEF[facility] [address]. [place] [address] * (ABNORMAL) Creatine kinase (CK), total (02/10/2025 7:40 AM CDT) CK 23(L) 40 - 300 Units/L Comment:Testing performed by : [facility], [address] [place] [address] Blood 02/10/2025 7:40 AM CDT 02/10/2025 8:17 AM CDT [facility] LAB BLOOD ORDERABLES Final Result Performing Organization Address [facility] de Phone Number GORAN YOUSSEFCH [phone]. [place] [address] * Comprehensive metabolic panel (02/10/2025 7:40 AM CDT) Sodium 143 135 - 145 mmol/L Comment:Testing performed by : [facility], [address], [place] [address] Potassium, pl 4.1 3.3 - 4.9 mmol/L CERNER BJWCH Comment:Testing performed by : [facility], [address], [place] [address] Chloride 103 97 - 110 mmol/L CERNER BJWCH Comment:Testing performed by : [facility], [address] [place] [address] CO2 29 22 - 32 mmol/L CERNER BJWCH Comment:Testing performed by : [facility], [address] [place] [address] Anion gap 11 2 - 15 mmol/L CERNER BJWCH Comment:Testing performed by : [facility], [address], [place] [address] BUN 17 6 - 25 mg/dL CERNER BJWCH Comment:Testing performed by : [facility], [address], [place] [address] Creatinine 0.90 0.80 - 1.30 mg/dL CERNER BJWCH Comment:Testing performed by : [facility], [address], [place] [address] Glucose 174 70 - 199 mg/dL CERNER [...] last revised 2022. Testing performed by: [facility], [address], [place] [address] Calcium 10.0 8.5 - 10.3 mg/dL CERNER BJWCH Comment:Testing performed by : [facility], [address], [place] [address] Bilirubin, total 0.2 0.1 - 1.2 mg/dL CERNER BJWCH Comment:Testing performed by : [facility], [address], [place] [address] Protein, pl 6.8 6.5 - 8.5 g/dL CERNER BJWCH Comment:Testing performed by : [facility], [address], [place] [address] Albumin 4.6 3.5 - 5.0 g/dL CERNER BJWCH Comment:Testing performed by : [facility], [address], [place] [address] Alk phos 67 40 - 130 Units/L CERNER BJWCH Comment:Testing performed by : [facility], [address], [place] [address] ALT 16 7 - 55 Units/L GORAN HELM Comment:Testing performed by : [facility], [address], [place] [address] AST 21 10 - 50 Units/L GORAN HELM Comment:Testing performed by : [facility], [address], [place] [address] Blood 02/10/2025 7:40 AM CDT 02/10/2025 8:17 AM CDT Gladis Savage NP LAB BLOOD ORDERABLES Final Result GORAN HELM [address] [place] [address] * [place] Bone Imaging Whole Body (02/08/2025 [...] man with prostate cancer diagnosed in 2009 (Puposky 4+3), status post radical prostatectomy, radiation and androgen deprivation therapy. He is currently being treated on the [id number] trial, since September 2024. The most recently [...] He is currently being treated on the [id number] trial, since September 2024. The most recently [...] it. Electronically signed by: Domenic Charlton M.D. [facility] Maxx Guillaume MD [facility] Edit ed Result - Final * [...] it. Electronically signed by: Renato Cutler M.D. [facility] Maxx Guillaume MD IMG CT PROCEDURES Vanessa [...] EXAMINATION: PSMA-PET/CT DATE OF STUDY: 02/01/2025 SCANNER: [facility] PET Vision (NV1). This is a high-resolution scanner, which can result in higher SUVs (and even detection of previously unrecognized small lesions) compared to older scanners. RADIOPHARMACEUTICAL: 9.82 mCi F-18 DCFPyL (Piflufolastat) i.v. Injection site: Right antecubital HISTORY: 69-year-old man with prostate cancer diagnosed in 2009 (Puposky 4+3), status post radical prostatectomy, radiation and androgen deprivation therapy. He is currently being treated on the [id number] trial, since September 2024. The most recently [...] obtained. The study was interpreted on the OpenLogic workstation. The total scanned area was mid [...] and instrumented fusion at C5-C6. Procedure Note Regige Villasenor MD - 02/01/2025 EXAMINATION: PSMA-PET/CT DATE OF STUDY: 02/01/2025 SCANNER: [facility] Titansan (NV1). This is a high-resolution scanner, which can result in higher SUVs (and even detection of previously unrecognized small lesions) compared to older scanners. RADIOPHARMACEUTICAL: 9.82 mCi F-18 DCFPyL (Piflufolastat) i.v. Injection site: Right antecubital HISTORY: 69-year-old man with prostate cancer diagnosed in 2009 (Puposky 4+3), status post radical prostatectomy, radiation and androgen deprivation therapy. He is currently being treated on the [id number] trial, since September 2024. The most recently [...] obtained. The study was interpreted on the OpenLog[employer] workstation. The total scanned area was mid [...] last reviewed 2021. Testing performed by: [facility], [address] [facility] [place] [place] [address] Blood 01/20/2025 7:43 AM CDT 01/20/2025 8:17 AM CDT us Kemal Guillaume MD LAB BLOOD ORDERABLES F inal Result [facility] [address] [facility]. [place] [address] * (ABNORMAL) Differential, auto (01/20/2025 7:43 AM CDT) Neutrophil abs 4.30 1.50 - 6.50 K/cumm Comment:Testing performed by : [facility], [facility], [address] [place] [address] Imm gran abs 0.01 0.00 - 0.10 K/cumm CERNER BJWCH Comment:Testing performed by : [facility], [facility], [address], [place] [address] Lymphocyte abs 0.53(L) 0.80 - 3.30 K/cumm CERNER BJWCH Comment:Testing performed by : [facility], [facility], [address] [place] [address] Monocyte abs 0.45 0.20 - 0.80 K/cumm CERNER BJWCH Comment:Testing performed by : [facility], [facility], [address] [place] [address] Eosinophil abs 0.04 0.00 - 0.50 K/cumm CERNER BJWCH Comment:Testing performed by : [facility], [facility], [address] [place] [address] Basophil abs 0.02 0.00 - 0.10 K/cumm CERNER BJWCH Comment:Testing performed by : [facility], [facility], [address] [place] [address] Neutrophil pct 80.4 % CERNER BJWCH Comment: Interpretive Data Percent cell count reference ranges are not reported, since discordance with absolute values may lead to misinterpretation of CBC data. Current Interpretive Data was last revised on 2017. Testing performed by: [facility], [facility], [address] [place] [address] Imm gran pct 0.2 % CERNER BJWCH Comment: Interpretive Data Percent cell count reference ranges are not reported, since discordance with absolute values may lead to misinterpretation of CBC data. Current Interpretive Data was last revised on 2017. Testing performed by: [facility], [facility], [address] [place] [address] Lymphocyte pct 9.9 % CERNER BJWCH Comment: Interpretive Data Percent cell count reference ranges are not reported, since discordance with absolute values may lead to misinterpretation of CBC data. Current Interpretive Data was last revised on 2017. Testing performed by: [facility], [facility], [address] [place] [address] Monocyte pct 8.4 % GORAN HELM Comment: Interpretive Data Percent cell count reference ranges are not reported, since discordance with absolute values may lead to misinterpretation of CBC data. Current Interpretive Data was last revised on 2017. Testing performed by: [facility], [facility], [address] [place] [address] Eosinophil pct 0.7 % GORAN HELM Comment: Interpretive Data Percent cell count reference ranges are not reported, since discordance with absolute values may lead to misinterpretation of CBC data. Current Interpretive Data was last revised on 2017. Testing performed by: [facility], [facility], [address] [place] [address] Basophil pct 0.4 % GORAN HELM Comment: Interpretive Data Percent cell count reference ranges are not reported, since discordance with absolute values may lead to misinterpretation of CBC data. Current Interpretive Data was last revised on 2017. Testing performed by: [facility], [facility], [address] [place] [address] Blood 01/20/2025 7:43 AM CDT 01/20/2025 7:43 AM CDT Kemal Guillaume MD LAB BLOOD ORDERABLES F inal Result [facility] [address] [facility]. [place] [address] * CBC with auto differential (01/20/2025 7:43 AM CDT) WBC 5.35 3.80 - 9.90 K/cumm Comment:Testing performed by : [facility], [facility], [address] [place] [address] Hgb 13.3 13.0 - 17.5 g/dL CERNER BJWCH Comment:Testing performed by : [facility], [facility], [address], [place] [address] Hct 40.2 38.9 - 50.3 % CERNER BJWCH Comment:Testing performed by : [facility], [address], [place] [address] Plt 181 150 - 400 K/cumm CERNER BJWCH Comment:Testing performed by : [place] [address], [address], [place] [address] MPV 10.7 9.1 - 12.3 fL CERNER BJWCH Comment:Testing performed by : [place] [address], [address] [place] [address] RBC 4.61 4.30 - 5.80 M/cumm CERNER BJWCH Comment:Testing performed by : [place] [address], [address], [place] [address] MCV 87.2 81.3 - 96.4 fL CERNER BJWCH Comment:Testing performed by : [place] [address], [address], [place] [address] MCH 28.9 27.1 - 33.3 pg CERNER BJWCH Comment:Testing performed by : [place] [address], [address], [place] [address] MCHC 33.1 32.3 - 35.7 g/dL CERNER BJWCH Comment:Testing performed by : [place] [address], [address] [place] [address] RDW CV 12.0 11.1 - 14.9 % CERNER BJWCH Comment:Testing performed by : [place] [address], [address], [place] [address] RDW SD 38.7 35.7 - 48.1 fL CERNER BJWCH Comment:Testing performed by : [place] [address], [address], [place] [address] ANC Prelim 4.30 1.50 - 6.50 K/cumm GORAN YOUSSEFWCH Comment: Interpretive Data The rapid ANC is a preliminary automated count and may vary from the final ANC (Neut Abs) reported in the WBC differential that follows. Current interpretive data was last revised 2024. Testing performed by: [facility], [facility], [address], [place] [address] Blood 01/20/2025 7:43 AM CDT 01/20/2025 7:43 AM CDT Kemal Guillaume MD LAB BLOOD ORDERABLES F inal Result Performing Organization Address City/[facility]/ZIP Co de Phone Number GORAN [facility] [address] [facility]. [facility] [place] [address] * Uric acid (01/20/2025 7:43 AM CDT) Uric acid 3.6 3.0 - 8.0 mg/dL Comment:Testing performed by : [facility], [address], [place] [address] Blood 01/20/2025 7:43 AM CDT 01/20/2025 8:17 AM CDT Kemal Guillaume MD LAB BLOOD ORDERABLES F inal Result Performing Organization Address City/[facility]/ZIP Co de Phone Number GORAN YOUSSEFCH [address] [facility]. [facility] [place] [address] * Triglycerides (01/20/2025 7:43 AM CDT) Triglycerides [...] revised on 2018. Testing performed by: [facility], [address] [place], [place] [address] [place] [address] Blood 01/20/2025 7:43 AM CDT 01/20/2025 8:17 AM CDT Kemal Guillaume MD LAB BLOOD ORDERABLES F inal Result Performing Organization Address [facility] Co de Phone Number [facility] [address] [facility]. [facility] [place] [address] * (ABNORMAL) PSA diagnostic (01/20/2025 7:43 AM CDT) PSA-Total 16.24(H) <=5.40 ng/mL Comment: Interpretive Data AGE SEX REFERENCE INTERVAL 0 minutes-150 years Female None 0 minutes-49 years Male None 50-59 years Male 0-3.90 60-69 years Male 0-5.40 70-79 years Male 0-6.20 80-150 years Male 0-6.20 The [place] PSA Total assay procedure was used. Results from different manufacturers or methods may not be comparable. Serial testing should be performed using the same method. Current interpretive data last revised 22. Testing performed by: [facility], [address] [place] [address] Blood 01/20/2025 7:43 AM CDT 01/20/2025 8:17 AM CDT Kemal Guillaume MD LAB BLOOD ORDERABLES F inal Result Performing Organization Address City/[facility] Co de Phone Number GORAN BJCH [address] [facility]. [facility] [place] [address] * Phosphorus (01/20/2025 7:43 AM CDT) Pathologist [facility] Phosphorus, pl 2.9 2.3 - 4.5 mg/dL Comment:Testing performed by : [facility], [address] [place] [address] Blood 01/20/2025 7:43 AM CDT 01/20/2025 8:17 AM CDT Kemal Guillaume MD LAB BLOOD ORDERABLES F inal Result GORAN [facility] [address] [facility] [place] [address] * Lactate dehydrogenase (LD) (01/20/2025 7:43 AM CDT) [facility] Lactate dehydrogenase (LDH) 143 100 - 250 Units/L Comment:Testing performed by : [facility], [address] [place] [address] Blood 01/20/2025 7:43 AM CDT 01/20/2025 8:17 AM CDT Kemal Guillaume MD LAB BLOOD ORDERABLES F inal Result Performing Organization Address [facility] Co de Phone Number GORAN BJWCH [address] [address] [facility] [place] [address] * Gamma GT (01/20/2025 7:43 AM CDT) [facility] GGT 19 10 - 50 Units/L Comment:Testing performed by : [facility], [address] [place] [address] Blood 01/20/2025 7:43 AM CDT 01/20/2025 8:17 AM CDT Kemal Guillaume MD LAB BLOOD ORDERABLES F inal Result GORAN BJWCH [address] [place] [address] * (ABNORMAL) Creatine kinase (CK), total (01/20/2025 7:43 AM CDT) Pathologist [facility] CK 22(L) 40 - 300 Units/L Comment:Testing performed by : [facility], [address], [place] [address] Blood 01/20/2025 7:43 AM CDT 01/20/2025 8:17 AM CDT Kemal Guillaume MD LAB BLOOD ORDERABLES F inal Result [facility] [address] [place] [address] * (ABNORMAL) Comprehensive metabolic panel (01/20/2025 7:43 AM CDT) [facility] Sodium 141 135 - 145 mmol/L Comment:Testing performed by : [facility], [address], [place] [address] Potassium, pl 3.7 3.3 - 4.9 mmol/L CERNICHOLE BJJulius Comment:Testing performed by : [facility], [address], [place] [address] Chloride 102 97 - 110 mmol/L GORAN BJJuliusCH Comment:Testing performed by : [facility], [address], [place] [address] CO2 28 22 - 32 mmol/L CERNICHOLE BJWCH Comment:Testing performed by : [facility], [address], [place] [address] Anion gap 11 2 - 15 mmol/L GORAN BJWCH Comment:Testing performed by : [facility], [address], [place] [address] BUN 18 6 - 25 mg/dL GORAN BJWCH Comment:Testing performed by : [facility], [address], [place] [address] Creatinine 0.70(L) 0.80 - 1.30 mg/dL CERNER BJWCH Comment:Testing performed by : [facility], [address], [place] [address] Glucose 156 70 - 199 mg/dL CERNER [...] last revised 2022. Testing performed by: [facility], [address], [place] [address] Calcium 9.7 8.5 - 10.3 mg/dL CERNER BJWCH Comment:Testing performed by : [facility], [address], [place] [address] Bilirubin, total 0.2 0.1 - 1.2 mg/dL CERNER BJWCH Comment:Testing performed by : [facility], [address], [place] [address] Protein, pl 6.9 6.5 - 8.5 g/dL CERNER BJWCH Comment:Testing performed by : [facility], [address], [place] [address] Albumin 4.3 3.5 - 5.0 g/dL CERNER BJWCH Comment:Testing performed by : [facility], [address], [place] [address] Alk phos 74 40 - 130 Units/L CERNER BJWCH Comment:Testing performed by : [facility], [address], [place] [address] ALT 16 7 - 55 Units/L CERNER BJWCH Comment:Testing performed by : [facility], [address], [place] [address] AST 24 10 - 50 Units/L CERNER BJWCH Comment:Testing performed by : [facility], [address], [place] [address] Blood 01/20/2025 7:43 AM CDT 01/20/2025 8:17 AM CDT Kemal Guillaume MD LAB BLOOD ORDERABLES F inal Result GORAN HELM [address] [place] [address] * Urinalysis reflex to microscopic and culture Urine (01/20/2025 7:37 AM CDT) Color, ur Yellow Yellow Comment:Testing performed by : [facility], [address], [place] [address] Clarity, ur Clear Clear GORAN HELM Comment:Testing performed by : [facility], [address], [place] [address] Specific gravity, ur 1.029 1.003 - 1.030 GORAN HELM Comment:Testing performed by : [facility], [address], [place] [address] pH, urine 5.5 GORAN HELM Comment: Interpretive Data U rine pH is affected by diet, medications, systemic acid-base disturbances, and renal tubular function. pH may affect urinary stone formation. For example, urine pH below 6.0 may help reduce the tendency for calcium phosphate stones and pH greater than 6.0 may reduce the tendency for uric acid stone formation. Source: [employer] Current Interpretive Data was last revised on 2017 Testing performed by: [facility], [address], [place] [address] Protein, ur ql Trace Negative GORAN HELM Comment:Testing performed by : [facility], [address], [place] [address] Glucose, ur ql Negative Negative GORAN HELM Comment:Testing performed by : [facility], [address], [place] [address] Ketones, ur Negative Negative CERNICHOLE YOUSSEFWCH Comment:Testing performed by : [facility], [address], [place] [address] Bilirubin, ur Negative Negative CERNER BJWCH Comment:Testing performed by : [facility], [address], [place] [address] Blood, ur Negative Negative CERNER BJWCH Comment:Testing performed by : [facility], [address], [place] [address] Urobilinogen, ur <2.0 <2.0 mg/dL CERNER BJWCH Comment:Testing performed by : [facility], [address], [place] [address] Nitrite, ur Negative Negative CERNER BJWCH Comment:Testing performed by : [facility], [address], [place] [address] Leukocyte esterase, ur Negative Negative CERNER BJWCH Comment:Testing performed by : [facility], [address], [place] [address] UA reflex comment Reflex conditions for microscopic UA and culture not met. GORAN BJWCH Comment:Testing performed by : [facility], [address], [place] [address] Urine 01/20/2025 7:37 AM CDT 01/20/2025 8:20 AM CDT Kemal Guillaume MD LAB MICROBIOLOGY - GEN ERAL ORDERABLES Final Result GORAN YOUSSEFWCH [address] [place] [address] * (ABNORMAL) Urinalysis reflex to microscopic and culture Urine (12/30/2024 7:40 AM CDT) Color, ur Yellow Yellow Comment:Testing performed by : [facility], [address], [place] [address] Clarity, ur Clear Clear CERNER BJWCH Comment:Testing performed by : [facility], [address], [place] [address] Specific gravity, ur 1.030 1.003 - 1.030 CERNER BJWCH Comment:Testing performed by : [facility], [address], [place] [address] pH, urine 5.5 CERNER BJWCH Comment: Interpretive Data U rine pH is affected by diet, medications, systemic acid-base disturbances, and renal tubular function. pH may affect urinary stone formation. For example, urine pH below 6.0 may help reduce the tendency for calcium phosphate stones and pH greater than 6.0 may reduce the tendency for uric acid stone formation. Source: [facility] [employer] Current Interpretive Data was last revised on 2017 Testing performed by: [facility], [address], [place] [address] Protein, ur ql 1+(A) Negative CERNER BJWCH Comment:Testing performed by : [facility], [address], [place] [address] Glucose, ur ql Negative Negative CERNER BJWCH Comment:Testing performed by : [facility], [address], [place] [address] Ketones, ur Negative Negative CERNER BJWCH Comment:Testing performed by : [facility], [address], [place] [address] Bilirubin, ur Negative Negative CERNER BJWCH Comment:Testing performed by : [facility], [address], [place] [address] Blood, ur Negative Negative CERNER BJWCH Comment:Testing performed by : [facility], [address], [place] [address] Urobilinogen, ur <2.0 <2.0 mg/dL CERNER BJWCH Comment:Testing performed by : [facility], [address], [place] [address] Nitrite, ur Negative Negative CERNER BJWCH Comment:Testing performed by : [facility], [address], [place] [address] Leukocyte esterase, ur Negative Negative CERNER BJWCH Comment:Testing performed by : [facility], [address], [place] [address] UA reflex comment Reflex to microscopic UA will be performed. GORAN HELM Comment:Testing performed by : [facility], [address], [place] [address] Urine 12/30/2024 7:40 AM CDT 12/30/2024 8:16 AM CDT Kemal Guillaume MD LAB MICROBIOLOGY - GEN ERAL ORDERABLES Final Result Performing Organization Address City/[facility]/ZIP Co de Phone Number GORAN BJWCH [address] [address]. [facility] [place] [address] * (ABNORMAL) Urinalysis, microscopic only (12/30/2024 7:40 AM CDT) WBC, ur 0-5 0 - 5 /HPF Comment:Testing performed by : [facility], [address], [place] [address] RBC, ur 0-2 0 - 2 /HPF GORAN HELM Comment:Testing performed by : [facility], [address], [place] [address] Mucous, ur Present(A) GORAN HELM Comment:Testing performed by : [facility], [address], [place] [address] Culture Reflex Comment Reflex conditions for urine culture (WBC >10) not met. GORAN HELM Comment:Testing performed by : [facility], [address], [place] [address] Urine 12/30/2024 7:40 AM CDT 12/30/2024 8:16 AM CDT us Kemal Guillaume MD LAB URINE ORDERABLES F inal Result GORAN BJWCH [address] [address]. [facility] [place] [address] * eGFR (12/30/2024 7:35 AM CDT) Pathologist [facility] eGFR >90 >=60 mL/min/1. 73 m2 Comment: [...] last reviewed 2021. Testing performed by: [facility], [address] [place] [address] Blood 12/30/2024 7:35 AM CDT 12/30/2024 7:49 AM CDT Kemal Guillaume MD LAB BLOOD ORDERABLES F inal Result [facility] [address] Department of Laboratories [place], [place] [id number] * (ABNORMAL) Differential, auto (12/30/2024 7:35 AM CDT) Pathologist [facility] Neutrophil abs 4.76 1.50 - 6.50 K/cumm Comment:Testing performed by : [facility], [facility] [address], [address] [place] [address] Imm gran abs 0.01 0.00 - 0.10 K/cumm GORAN HELM Comment:Testing performed by : [facility], [facility], [address] [place] [address] Lymphocyte abs 0.63(L) 0.80 - 3.30 K/cumm CERNER BJWCH Comment:Testing performed by : [facility], [facility], [address] [place] [address] Monocyte abs 0.45 0.20 - 0.80 K/cumm CERNER BJWCH Comment:Testing performed by : [facility], [facility], [address], [place] [address] Eosinophil abs 0.02 0.00 - 0.50 K/cumm CERNER BJWCH Comment:Testing performed by : [facility], [facility], [address], [place] [address] Basophil abs 0.04 0.00 - 0.10 K/cumm CERNER BJWCH Comment:Testing performed by : [facility], [facility], [address] [place] [address] Neutrophil pct 80.5 % CERNER BJWCH Comment: Interpretive Data Percent cell count reference ranges are not reported, since discordance with absolute values may lead to misinterpretation of CBC data. Current Interpretive Data was last revised on 2017. Testing performed by: [facility], [facility], [address] [place] [address] Imm gran pct 0.2 % CERNER BJWCH Comment: Interpretive Data Percent cell count reference ranges are not reported, since discordance with absolute values may lead to misinterpretation of CBC data. Current Interpretive Data was last revised on 2017. Testing performed by: [facility], [facility], [address] [place] [address] Lymphocyte pct 10.7 % CERNER BJWCH Comment: Interpretive Data Percent cell count reference ranges are not reported, since discordance with absolute values may lead to misinterpretation of CBC data. Current Interpretive Data was last revised on 2017. Testing performed by: [facility], [facility], [address] [place] [address] Monocyte pct 7.6 % CERNER BJWCH Comment: Interpretive Data Percent cell count reference ranges are not reported, since discordance with absolute values may lead to misinterpretation of CBC data. Current Interpretive Data was last revised on 2017. Testing performed by: [facility], [address] [place] [address] Eosinophil pct 0.3 % GORAN HELM Comment: Interpretive Data Percent cell count reference ranges are not reported, since discordance with absolute values may lead to misinterpretation of CBC data. Current Interpretive Data was last revised on 2017. Testing performed by: [facility], [address] [place] [address] Basophil pct 0.7 % GORAN HELM Comment: Interpretive Data Percent cell count reference ranges are not reported, since discordance with absolute values may lead to misinterpretation of CBC data. Current Interpretive Data was last revised on 2017. Testing performed by: [facility], [address] [place] [address] Blood 12/30/2024 7:35 AM CDT 12/30/2024 7:40 AM CDT Kemal Guillaume MD LAB BLOOD ORDERABLES F inal Result [facility] [address] [facility]. [place] [address] * CBC with auto differential (12/30/2024 7:35 AM CDT) WBC 5.91 3.80 - 9.90 K/cumm Comment:Testing performed by : [facility], [facility], [address] [place] [address] Hgb 13.4 13.0 - 17.5 g/dL GORAN HELM Comment:Testing performed by : [facility], [address] [place] [address] Hct 40.6 38.9 - 50.3 % GORAN HELM Comment:Testing performed by : [facility], [address] [place] [address] Plt 208 150 - 400 K/cumm CERNER BJWCH Comment:Testing performed by : [facility], [facility], [address] [place] [address] MPV 10.3 9.1 - 12.3 fL CERNER BJWCH Comment:Testing performed by : [place] [address], [address] [place] [address] RBC 4.60 4.30 - 5.80 M/cumm CERNER BJWCH Comment:Testing performed by : [facility], [facility], [address] [place] [address] MCV 88.3 81.3 - 96.4 fL CERNER BJWCH Comment:Testing performed by : [facility], [address] [place] [address] MCH 29.1 27.1 - 33.3 pg CERNER BJWCH Comment:Testing performed by : [place] [address], [address] [place] [address] MCHC 33.0 32.3 - 35.7 g/dL CERNER BJWCH Comment:Testing performed by : [place] [address], [address] [place] [address] RDW CV 11.9 11.1 - 14.9 % CERNICHOLE BJWCH Comment:Testing performed by : [place] [address], [address] [place] [address] RDW SD 38.1 35.7 - 48.1 fL CERNER BJWCH Comment:Testing performed by : [place] [address], [address] [place] [address] ANC Prelim 4.76 1.50 - 6.50 K/cumm CERNER BJWCH Comment: Interpretive Data The rapid ANC is a preliminary automated count and may vary from the final ANC (Neut Abs) reported in the WBC differential that follows. Current interpretive data was last revised 2024. Testing performed by: [place] [address], [address] [place] [address] Blood 12/30/2024 7:35 AM CDT 12/30/2024 7:40 AM CDT Kemal Guillaume MD LAB BLOOD ORDERABLES F inal Result Performing Organization Address City/[facility] Co de Phone Number [facility] [address] [facility] [address] * Uric acid (12/30/2024 7:35 AM CDT) Uric acid 3.9 3.0 - 8.0 mg/dL Comment:Testing performed by : [facility], [address] [place] [address] Blood 12/30/2024 7:35 AM CDT 12/30/2024 7:49 AM CDT Kemal Guillaume MD LAB BLOOD ORDERABLES F inal Result Performing Organization Address [facility] Co de Phone Number [facility] [address] [facility] [facility] [address] * (ABNORMAL) Triglycerides (12/30/2024 7:35 AM CDT) [...] revised on 2018. Testing performed by: [facility], [address] [place] [address] Blood 12/30/2024 7:35 AM CDT 12/30/2024 7:49 AM CDT Kemal Guillaume MD LAB BLOOD ORDERABLES F inal Result Performing Organization Address [facility] Co de Phone Number GORAN YOUSSEFCH [address] [facility] [place] [address] * (ABNORMAL) PSA diagnostic (12/30/2024 7:35 AM [...] last revised 22. Testing performed by: [facility], [address] [place] [address] Blood 12/30/2024 7:35 AM CDT 12/30/2024 7:49 AM CDT us Kemal Guillaume MD LAB BLOOD ORDERABLES F inal Result Performing Organization Address [facility] Co de Phone Number GORAN BJWCH [address] [facility] [place] [address] * Phosphorus (12/30/2024 7:35 AM CDT) Phosphorus, pl 3.7 2.3 - 4.5 mg/dL Comment:Testing performed by : [facility], [address] [place] [address] Blood 12/30/2024 7:35 AM CDT 12/30/2024 7:49 AM CDT Kemal Guillaume MD LAB BLOOD ORDERABLES F inal Result Performing Organization Address [facility] Co de Phone Number GORAN YOUSSEFWCH [address] [facility] [place] [address] * Lactate dehydrogenase (LD) (12/30/2024 7:35 AM CDT) Pathologist [facility] Lactate dehydrogenase (LDH) 141 100 - 250 Units/L Comment:Testing performed by : [facility], [address] [facility], [place] [address] Blood 12/30/2024 7:35 AM CDT 12/30/2024 7:49 AM CDT Kemal Guillaume MD LAB BLOOD ORDERABLES F inal Result Performing Organization Address [facility] de Phone Number GORAN BJWCH [address] [address] * Gamma GT (12/30/2024 7:35 AM CDT) [facility] GGT 15 10 - 50 Units/L Comment:Testing performed by : [facility], [address] [facility], [place] [address] Blood 12/30/2024 7:35 AM CDT 12/30/2024 7:49 AM CDT Kemal Guillaume MD LAB BLOOD ORDERABLES F inal Result Performing Organization Address City/[facility] Co de Phone Number GORAN BJWCH [address] [place] [address] * (ABNORMAL) Creatine kinase (CK), total (12/30/2024 7:35 AM CDT) Pathologist [facility] CK 25(L) 40 - 300 Units/L Comment:Testing performed by : [facility], [address], [place] [address] Blood 12/30/2024 7:35 AM CDT 12/30/2024 7:49 AM CDT Kemal Guillaume MD LAB BLOOD ORDERABLES F inal Result [facility] [address] [place] [address] * Comprehensive metabolic panel (12/30/2024 7:35 AM CDT) Sodium 143 135 - 145 mmol/L Comment:Testing performed by : [facility], [address] [place] [address] Potassium, pl 4.3 3.3 - 4.9 mmol/L CERNER BJWCH Comment:Testing performed by : [facility], [address] [place] [address] Chloride 103 97 - 110 mmol/L CERNER BJWCH Comment:Testing performed by : [facility], [address], [place] [address] CO2 30 22 - 32 mmol/L CERNER BJWCH Comment:Testing performed by : [facility], [address], [place] [address] Anion gap 10 2 - 15 mmol/L CERNER BJWCH Comment:Testing performed by : [facility], [address], [place] [address] BUN 19 6 - 25 mg/dL CERNER BJWCH Comment:Testing performed by : [facility], [address], [place] [address] Creatinine 0.82 0.80 - 1.30 mg/dL CERNER BJWCH Comment:Testing performed by : [facility], [address], [place] [address] Glucose 169 70 - 199 mg/dL CERNER [...] last revised 2022. Testing performed by: [facility], [address], [place] [address] Calcium 9.9 8.5 - 10.3 mg/dL CERNER BJWCH Comment:Testing performed by : [facility], [address], [place] [address] Bilirubin, total 0.3 0.1 - 1.2 mg/dL CERNER BJWCH Comment:Testing performed by : [facility], [address], [place] [address] Protein, pl 6.8 6.5 - 8.5 g/dL CERNER BJWCH Comment:Testing performed by : [facility], [address], [place] [address] Albumin 4.1 3.5 - 5.0 g/dL CERNER BJWCH Comment:Testing performed by : [facility], [address], [place] [address] Alk phos 72 40 - 130 Units/L CERNER BJWCH Comment:Testing performed by : [facility], [address], [place] [address] ALT 18 7 - 55 Units/L CERNER BJWCH Comment:Testing performed by : [facility], [address], [place] [address] AST 23 10 - 50 Units/L CERNER BJWCH Comment:Testing performed by : [facility], [address], [place] [address] Blood 12/30/2024 7:35 AM CDT 12/30/2024 7:49 AM CDT Kemal Guillaume MD LAB BLOOD ORDERABLES F inal Result GORAN YOUSSEFW [address] Department of Laboratories [place], [place] [id number] * (ABNORMAL) Urinalysis reflex to microscopic and culture Urine (12/09/2024 7:45 AM CDT) Color, ur Yellow Yellow Comment:Testing performed by : [facility], [address], [place] [address] Clarity, ur Clear Clear CERNICHOLE HELM Comment:Testing performed by : [facility], [address], [place] [address] Specific gravity, ur 1.029 1.003 - 1.030 GORAN RASHEEDCH Comment:Testing performed by : [facility], [address], [place] [address] pH, urine 5.5 GORAN HELM Comment: Interpretive Data U rine pH is affected by diet, medications, systemic acid-base disturbances, and renal tubular function. pH may affect urinary stone formation. For example, urine pH below 6.0 may help reduce the tendency for calcium phosphate stones and pH greater than 6.0 may reduce the tendency for uric acid stone formation. Source: [facility] [place] Current Interpretive Data was last revised on 2017 Testing performed by: [facility], [address], [place] [address] Protein, ur ql 1+(A) Negative CERNICHOLE HELM Comment:Testing performed by : [facility], [address], [place] [address] Glucose, ur ql Negative Negative CERNICHOLE YOUSSEFWCH Comment:Testing performed by : [facility], [address], [place] [address] Ketones, ur Negative Negative CERNER BJWCH Comment:Testing performed by : [facility], [address], [place] [address] Bilirubin, ur Negative Negative CERNER BJWCH Comment:Testing performed by : [facility], [address], [place] [address] Blood, ur Negative Negative GORAN HELM Comment:Testing performed by : [facility], [address], [place] [address] Urobilinogen, ur <2.0 <2.0 mg/dL GORAN HELM Comment:Testing performed by : [facility], [address], [place] [address] Nitrite, ur Negative Negative GORAN HELM Comment:Testing performed by : [facility], [address], [place] [address] Leukocyte esterase, ur Negative Negative GORAN HELM Comment:Testing performed by : [facility], [address], [place] [address] UA reflex comment Reflex to microscopic UA will be performed. GORAN HELM Comment:Testing performed by : [facility], [address], [place] [address] Urine 12/09/2024 7:45 AM CDT 12/09/2024 8:11 AM CDT Kemal Guillaume MD LAB MICROBIOLOGY - GEN ERAL ORDERABLES Final Result GORAN HELM [address] [place] [address] * (ABNORMAL) Urinalysis, microscopic only (12/09/2024 7:45 AM CDT) WBC, ur 0-5 0 - 5 /HPF Comment:Testing performed by : [facility], [address], [place] [address] RBC, ur 3-5(A) 0 - 2 /HPF GORAN HELM Comment:Testing performed by : [facility], [address], [place] [address] Epithelial cells, squamous, ur 1-5 0 - 5 /HPF GORAN HELM Comment:Testing performed by : [facility], [address], [place] [address] Mucous, ur Present(A) GORAN HELM Comment:Testing performed by : [facility], [address], [place] [address] Culture Reflex Comment Reflex conditions for urine culture (WBC >10) not met. GORAN HELM Comment:Testing performed by : [facility], [address], [place] [address] Urine 12/09/2024 7:45 AM CDT 12/09/2024 8:11 AM CDT us Kemal Guillaume MD LAB URINE ORDERABLES F inal Result GORAN HELM [address] Department of Laboratories [place], [place] [id number] * eGFR (12/09/2024 7:33 AM CDT) eGFR [...] last reviewed 2021. Testing performed by: [facility], [address], [place] [address] Blood 12/09/2024 7:33 AM CDT 12/09/2024 7:49 AM CDT us Kemal Guillaume MD LAB BLOOD ORDERABLES F inal Result [facility] [address] Department of Laboratories [place], [place] [id number] * (ABNORMAL) Differential, auto (12/09/2024 7:33 AM CDT) Neutrophil abs 2.8 1.5 - 6.5 K/cumm Comment:Testing performed by : [facility], [address], [place] [address] Imm gran abs 0.0 0.0 - 0.1 K/cumm CERNER BJWCH Comment:Testing performed by : [facility], [address], [place] [address] Lymphocyte abs 0.6(L) 0.8 - 3.3 K/cumm CERNER BJWCH Comment:Testing performed by : [facility], [address], [place] [address] Monocyte abs 0.3 0.2 - 0.8 K/cumm CERNER BJWCH Comment:Testing performed by : [facility], [address], [place] [address] Eosinophil abs 0.0 0.0 - 0.5 K/cumm CERNER BJWCH Comment:Testing performed by : [facility], [address], [place] [address] Basophil abs 0.0 0.0 - 0.1 K/cumm CERNER BJWCH Comment:Testing performed by : [facility], [address], [place] [address] Neutrophil pct 73.8 % CERNER BJWCH Comment: Interpretive Data Percent cell count reference ranges are not reported, since discordance with absolute values may lead to misinterpretation of CBC data. Current Interpretive Data was last revised on 2017. Testing performed by: [facility], [address], [place] [address] Imm gran pct 0.3 % CERNER BJWCH Comment: Interpretive Data Percent cell count reference ranges are not reported, since discordance with absolute values may lead to misinterpretation of CBC data. Current Interpretive Data was last revised on 2017. Testing performed by: [facility], [address], [place] [address] Lymphocyte pct 16.0 % [facility]HOLE [facility] Comment: Interpretive Data Percent cell count reference ranges are not reported, since discordance with absolute values may lead to misinterpretation of CBC data. Current Interpretive Data was last revised on 2017. Testing performed by: [facility], [address], [place] [address] Monocyte pct 8.4 % CERNER BJWCH Comment: Interpretive Data Percent cell count reference ranges are not reported, since discordance with absolute values may lead to misinterpretation of CBC data. Current Interpretive Data was last revised on 2017. Testing performed by: [facility], [address], [place] [address] Eosinophil pct 1.0 % [facility]HOLE [facility] Comment: Interpretive Data Percent cell count reference ranges are not reported, since discordance with absolute values may lead to misinterpretation of CBC data. Current Interpretive Data was last revised on 2017. Testing performed by: [facility], [address], [place], [place] [address] Basophil pct 0.5 % CERNER MIKAELWCH Comment: Interpretive Data Percent cell count reference ranges are not reported, since discordance with absolute values may lead to misinterpretation of CBC data. Current Interpretive Data was last revised on 2017. Testing performed by: [facility], [address] [place] [address] Blood 12/09/2024 7:33 AM CDT 12/09/2024 7:34 AM CDT us Kemal Guillaume MD LAB BLOOD ORDERABLES F inal Result GORAN BJWCH [address] [place] [address] * (ABNORMAL) CBC with auto differential (12/09/2024 7:33 AM CDT) WBC 3.8 3.8 - 9.9 K/cumm Comment:Testing performed by : [facility], [address], [place] [address] Hgb 13.5 13.0 - 17.5 g/dL CERNER BJWCH Comment:Testing performed by : [facility], [address], [place] [address] Hct 41.9 38.9 - 50.3 % CERNER BJWCH Comment:Testing performed by : [facility], [address], [place] [address] Plt 184 150 - 400 K/cumm CERNER BJWCH Comment:Testing performed by : [facility], [address], [place] [address] MPV 11.4 9.1 - 12.3 fL CERNER BJWCH Comment:Testing performed by : [facility], [address], [place] [address] RBC 4.67 4.30 - 5.80 M/cumm CERNER BJWCH Comment:Testing performed by : [facility], [address], [place] [address] MCV 89.7 81.3 - 96.4 fL CERNER BJWCH Comment:Testing performed by : [facility], [address], [place] [address] MCH 28.9 27.1 - 33.3 pg CERNER BJWCH Comment:Testing performed by : [facility], [address], [place] [address] MCHC 32.2(L) 32.3 - 35.7 g/dL CERNER BJWCH Comment:Testing performed by : [facility], [address], [place] [address] RDW CV 12.0 11.1 - 14.9 % CERNER BJWCH Comment:Testing performed by : [facility], [address], [place] [address] RDW SD 39.2 35.7 - 48.1 fL CERNER BJWCH Comment:Testing performed by : [facility], [address], [place] [address] NRBC abs 0.00 0.00 - 0.01 K/cumm GORAN HELM Comment:Testing performed by : [facility], [address], [place] [address] Blood 12/09/2024 7:33 AM CDT 12/09/2024 7:34 AM CDT us Kemal Guillaume MD LAB BLOOD ORDERABLES F inal Result GORAN YOUSSEFCH [address] [facility] [place] [address] * Uric acid (12/09/2024 7:33 AM CDT) Uric acid 3.5 3.0 - 8.0 mg/dL Comment:Testing performed by : [facility], [address], [place] [address] Blood 12/09/2024 7:33 AM CDT 12/09/2024 7:49 AM CDT us Kemal Guillaume MD LAB BLOOD ORDERABLES F inal Result GORAN BJWCH [address] [facility] [place] [address] * Triglycerides (12/09/2024 7:33 AM CDT) Triglycerides [...] revised on 2018. Testing performed by: [facility], [address] [facility] [place] [place] [address] Blood 12/09/2024 7:33 AM CDT 12/09/2024 7:49 AM CDT Kemal Guillaume MD LAB BLOOD ORDERABLES F inal Result Performing Organization Address [facility] Co de Phone Number GORAN YOU[facility]FNYU [facility] [address] [facility]. [facility] [place] [address] * (ABNORMAL) PSA diagnostic (12/09/2024 7:33 AM CDT) PSA-Total 11.13(H) <=5.40 ng/mL Comment: Interpretive Data AGE SEX REFERENCE INTERVAL 0 minutes-150 years Female None 0 minutes-49 years Male None 50-59 years Male 0-3.90 60-69 years Male 0-5.40 70-79 years Male 0-6.20 80-150 years Male 0-6.20 The [place] PSA Total assay procedure was used. Results from different manufacturers or methods may not be comparable. Serial testing should be performed using the same method. Current interpretive data last revised 22. Testing performed by: [facility], [address] [facility] [place] [address] Blood 12/09/2024 7:33 AM CDT 12/09/2024 7:49 AM CDT Kemal Guillaume MD LAB BLOOD ORDERABLES F inal Result Performing Organization Address City/[facility] Co de Phone Number GORAN YOUSSEFWCH [address] [facility]. [facility] [place], [place] [id number] * Phosphorus (12/09/2024 7:33 AM CDT) Pathologist [facility] Phosphorus, pl 3.5 2.3 - 4.5 mg/dL Comment:Testing performed by : [facility], [address] [place] [address] Blood 12/09/2024 7:33 AM CDT 12/09/2024 7:49 AM CDT Kemal Guillaume MD LAB BLOOD ORDERABLES F inal Result GORAN YOUSSEFCH [address] [facility]. [facility] [place] [address] * Lactate dehydrogenase (LD) (12/09/2024 7:33 AM CDT) [facility] Lactate dehydrogenase (LDH) 135 100 - 250 Units/L Comment:Testing performed by : [facility], [address] [place] [address] Blood 12/09/2024 7:33 AM CDT 12/09/2024 7:49 AM CDT Kemal Guillaume MD LAB BLOOD ORDERABLES F inal Result Performing Organization Address [facility] Co de Phone Number GORAN BJCH [address]. [facility] [place] [address] * Gamma GT (12/09/2024 7:33 AM CDT) [facility] GGT 15 10 - 50 Units/L Comment:Testing performed by : [facility], [address] [place] [address] Blood 12/09/2024 7:33 AM CDT 12/09/2024 7:49 AM CDT Kemal Guillaume MD LAB BLOOD ORDERABLES F inal Result Performing Organization Address [facility]/ZIP Co de Phone Number [facility] [address] [place] [address] * (ABNORMAL) Creatine kinase (CK), total (12/09/2024 7:33 AM CDT) Pathologist [facility] CK 25(L) 40 - 300 Units/L Comment:Testing performed by : [facility], [address] [place] [address] Blood 12/09/2024 7:33 AM CDT 12/09/2024 7:49 AM CDT Kemal Guillaume MD LAB BLOOD ORDERABLES F inal Result [facility] [address] [place] [address] * Comprehensive metabolic panel (12/09/2024 7:33 AM CDT) [facility] Sodium 144 135 - 145 mmol/L Comment:Testing performed by : [facility], [address], [place] [address] Potassium, pl 4.0 3.3 - 4.9 mmol/L CERNER BJWCH Comment:Testing performed by : [facility], [address], [place] [address] Chloride 105 97 - 110 mmol/L CERNER BJWCH Comment:Testing performed by : [facility], [address], [place] [address] CO2 29 22 - 32 mmol/L CERNER BJWCH Comment:Testing performed by : [facility], [address], [place] [address] Anion gap 10 2 - 15 mmol/L CERNER BJWCH Comment:Testing performed by : [facility], [address], [place] [address] BUN 17 6 - 25 mg/dL CERNER BJWCH Comment:Testing performed by : [facility], [address], [place] [address] Creatinine 0.85 0.80 - 1.30 mg/dL CERNER BJWCH Comment:Testing performed by : [facility], [address], [place] [address] Glucose 139 70 - 199 mg/dL CERNER [...] last revised 2022. Testing performed by: [facility], [address], [place] [address] Calcium 9.6 8.5 - 10.3 mg/dL CERNER BJWCH Comment:Testing performed by : [facility], [address], [place] [address] Bilirubin, total 0.2 0.1 - 1.2 mg/dL CERNER BJWCH Comment:Testing performed by : [facility], [address], [place] [address] Protein, pl 7.0 6.5 - 8.5 g/dL CERNER BJWCH Comment:Testing performed by : [facility], [address], [place] [address] Albumin 4.2 3.5 - 5.0 g/dL CERNER BJWCH Comment:Testing performed by : [facility], [address], [place] [address] Alk phos 75 40 - 130 Units/L CERNER BJWCH Comment:Testing performed by : [facility], [address], [place] [address] ALT 18 7 - 55 Units/L CERNER BJWCH Comment:Testing performed by : [facility], [address], [place] [address] AST 21 10 - 50 Units/L CERNER BJWCH Comment:Testing performed by : [facility], [address], [place] [address] Blood 12/09/2024 7:33 AM CDT 12/09/2024 7:49 AM CDT us Kemal Guillaume MD LAB BLOOD ORDERABLES F inal Result [facility] [address] [place] [address] * NM Bone Imaging Whole Body (12/04/2024 [...] it. Electronically signed by: Matteo Navas M.D. [facility] Maxx Guillaume MD IMG CT PROCEDURES Vanessa l Result from Last 3 Months Insurance MEDICARE [facility] MEDICARE [facility] MEDICARE [facility] Care Teams Auto Mechanic Apprentice Relationship Specialty Start Date End Date Arvind Castellanos MD PCP - General 12/24/17 Patrick Perez MD [address] [address] Urology 07/27/21
--- OUTSIDE RECORDS SUMMARY | 2025-02-23 17:41 | XMS_ITS | Encounter Summary ---
Author Organization [facility] Address [address] [place] [address] Phone Care Team Providers Care Transit Department Clerk Name Role Phone Arvind Castellanos MD Primary Care Provider [phone] Patrick Perez MD Unavailable [phone] Encounter Details Date Type Department Care Team (Late st Contact Info) Description 02/01/2023 Telephone [facility] Oncology [address] [place] [id number] Sandra Davila, B.A. 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
--- OUTSIDE RECORDS SUMMARY | 2025-02-23 17:41 | XMS_ITS | Clinical Summary ---
Author Organization [facility] Address [address] [place] [address] Care Team Providers Care Dairy Scientist Name Role Phone Unavailable Primary Care Provider Unavailabl e Source Comments [facility],non-owned Affiliates and Associated Physician Practices is amultiple site organization consisting of ambulatory clinics and hospital sitesin [place], [place], [place] and [place]. This disclosure is being madepursuant to the Care Everywhere program and may not contain all information available regarding this patient. 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
[2025-02-23] MEDS: SODIUM CHLORIDE 0.9% IV 1,000 ML 999 ML IV CONT (17:42)
[2025-02-23 17:47] LABS: Mean Corpuscular HGB Conc 33.3 g/dL (32-36); Mean Corpuscular Hemoglobin 28.7 pg (27.0-31.0); Mean Corpuscular Volume 86.1 fL (78.0-102.0); Mean Platelet Volume 10.3 fl (8.7-11.0); Platelet Count Result 191 K/mm3 (150-420); Red Blood Count 4.53 M/mm3 (4.70-6.10); Red Cell Distribution Width 12.2 % (11.6-14.4); White Blood Count 3.3 K/mm3 (4.8-10.8)
[2025-02-23 17:58] LABS: Alanine Aminotransferase 17 U/L (6-50); Albumin Level 4.1 g/dL (3.5-5.1); Alkaline Phosphatase 51 U/L (38-126); Anion Gap 3 mmol/L (4-12); Aspartate Amino Transferase 29 U/L (17-59); Bilirubin,Total 0.4 mg/dL (0.2-1.3); Blood Urea Nitrogen 17 mg/dL (9-20); Calcium 9.1 mg/dL (8.4-10.2); Carbon Dioxide 31 mmol/L (22-30); Chloride 106 mmol/L (98-107); Estimated CRCL calculation 68 ml/min; Estimated Glomerular Filt Rate > 60; Glucose 108 mg/dL (65-110); Magnesium 2.1 mg/dL (1.6-2.3); Osmolality Calculated 292 mOsm/kg (285-295); Potassium 3.8 mmol/L (3.4-5.0); Sodium 140 mmol/L (137-145); Total Protein 6.8 g/dL (6.3-8.2)
--- NOTE | 2025-02-23 18:00 | ECG_ITS ---
Test Date: 2025-02-23 18:00:24 Measurements Intervals [place] Rate: 61 P: 78 SC: 222 QRS: 106 QRSD: 151 T: 58 QT: 409 QTc: 413 Interpretive Statements SINUS RHYTHM WITH FIRST DEGREE AV BLOCK WITH OCCASIONAL VENTRICULAR PREMATURE COMPLEXES RIGHT AXIS DEVIATION RIGHT BUNDLE BRANCH BLOCK ABNORMAL ECG Compared to ECG 02/23/2025 17:33:25 NO SIGNIFICANT CHANGE Electronically Signed On 02-24-2025 09:08:17 CDT by Yohan Hernandez D.O.
[2025-02-23 18:07] LABS: Band Neutrophils Percent 0 % (0-6); Eosinophils Absolute Manual 0.03 K/mm3 (0.02-0.50); Eosinophils Percent Manual 1 % (1-6); Lymphocytes Absolute Manual 0.56 K/mm3 (1.1-4.5); Lymphocytes Percent Manual 17 % (18-44); Monocytes Absolute Manual 0.36 K/mm3 (0.1-0.90); Monocytes Percent Manual 11 % (3-9); Neutrophils Absolute Manual 2.34 K/mm3 (1.3-6.7); Neutrophils Percent Manual 71 % (46-73); Platelet Estimate Adequate (Adequate); Schistocytes None Seen; Total Cells Counted 100
[2025-02-23 18:09] LABS: Troponin I < 0.012 ng/mL (0.000-0.034)
[2025-02-23 18:12] LABS: Add Urine Microscopic? YES; Appearance Urine Clear (Clear); Bilirubin Urine Negative (Negative); Blood Urine 2+ (Negative); Color Urine Yellow (Yellow); Glucose Urine UA Negative (Negative); Ketones Urine Negative (Negative); Leukocyte Esterase Ur Negative LEU/UL (Negative); Nitrate Urine Negative (Negative); Protein Urine 2+ (Negative); Specific Grav Ur >= 1.030 (1.010-1.020); Urobilinogen Urine 0.2 mg/dL (0.2-1.0); pH Urine 5.5 (5.0-8.0)
[2025-02-23 18:41] LABS: Bacteria Urine 1+ /hpf; Calcium Oxalate Crystals Urine Present /hpf; WBC Urine 0-3 /hpf (0-3)
[2025-02-23 18:42] LABS: Mucus Urine Moderate /lpf
== END 2025-02-23 19:08 | disposition home or self-care (01) ==
PROVIDERS: Emergency Provider Emergency Medicine; PCP Internal Medicine
DX: I95.1 Orthostatic hypotension (principal); E86.0 Dehydration; F12.90 Cannabis use, unspecified, uncomplicated
CPT/HCPCS: 36415; 80053; 81001; 83735; 84484; 85025; 93005; 96360; 99284; J7030

== ENCOUNTER 2025-06-03 18:50 | Emergency (ER) | payer MEDICARE, OTHER, SELFPAY ==
[2025-06-03] VITALS (24 sets, daily range): BP systolic 118–157; BP diastolic 54–83; PULSE 87–147; RESP 19–24; TEMP 36.6–38.1; O2SAT 94–97
--- NOTE | ~2025-06-03 | XR_ITS ---
EXAMINATION: XR chest 1V portable 06/03/2025 19:47 INDICATION: Fever PROCEDURE: AP portable chest COMPARISON: 10/14/2017 FINDINGS: The lungs are clear. The cardiomediastinal silhouette is within normal limits. There are no pleural effusions. There is no pneumothorax suspected. The lungs are hyperinflated which is consistent with, but not diagnostic of chronic obstructive pulmonary disease. Portacatheter tip in the SVC. No acute osseous abnormality. IMPRESSION: 1: NO ACUTE CARDIOPULMONARY DISEASE. Reviewed, dictated and finalized at location O.
--- OUTSIDE RECORDS SUMMARY | 2025-06-03 18:52 | XMS_ITS ---
Author Organization [facility] Address [address] [place] [address] Care Team Providers Care Ductfixing Plumber Name Role Phone Arvind Castellanos MD Primary Care Provider [phone] Patrick Perez MD Unavailable [phone] Active Problems Problem Noted Date Diagnosed Date High risk medication use 05/27/2025 Overview (05/27/2025): Pt receives ADT from local provider. 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 Closed displaced fracture of greater tuberosity of left humerus 12/29/2021 Vitamin D deficiency, unspecified 08/22/2021 Prostate cancer 03/26/2021 Bilateral hip pain 04/11/2018 Current Treatment and Therapy Plans 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) Treatment Medications Current Day (Day 1 , Cycle 3 - Planned for 06/16/2025) Next Day (Day 1, Cycle 4 - Planned for 07/07/2025) dexAMETHasone (DECADRON)DOCEtaxel (TAXOTERE)DOCEtaxel (TAXOTERE) IVPB in 250 mL (vial 20mg/mL) DOCEtaxeL (TAXOTERE) 126 mg in sodium chloride 0.9% (PVC-FREE) 250 mL IVPB DOCEtaxeL (TAXOTERE) 126 mg in sodium chloride 0.9% (PVC-FREE) 250 mL IVPB IV Maintenance Therapy Plan* Plan Start Date:05/26/2025 Plan Provider:Kemal Guillaume MD Linked Problems 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 Past Treatment and Therapy Plans Line Care Plan Name Start Date Discontinue Date Treatment Medications Discontinue Reason Plan Provider IV Maintenance Therapy Plan 01/24/2024 05/26/2025 No medications scheduled. Orders Kemal Guillaume MD Oncology Chemotherapy Treatment Plan Name Start Date Discontinue Date Treatment Medications Discontinue Reason Plan Provider Cycles [id number] - [facility] - - [id number] PART 1B DOSE EXPANSION ARM Cohort 11&13(Q3W x 4 induction cycles, Q6W maintenance) - ARX 517 5 04/14/2025 INV-[facility] (/A [id number]) [id number] IVPB in 250 mLINV-[facility] brimonidine 0.2 % (/A [id number])INV -[facility] Systane Complete PF (/A [id number])INV -[facility] Systane Nighttime Lubricant (/A [id number]) Progressive Disease Kemal Guillaume MD 7 of 8 cycles started Sipuleucel-T 14 Day Cycles - Prostate 01/24/2024 05/05/2024 lmcyvskhkd-B-q actated ringers (PROVENGE) >50 million cell/250 mL Therapy Complete Kemal Guillaume MD 3 of 3 cycles started Apalutamide 240mg daily 28 day cycles 1 09/10/2022 No medications scheduled. Progression Keaml Guillaume MD 3 of 6 cycles started Lifetime Dose Tracking * Chemical Lifetime Dose Automatic Entry Manual Entr y Fluoro Time 0.3 minutes 0.3 minutes 0 minutes Air kerma at the reference point (Ka,r) 1 mGy 1 mGy 0 mGy DLP 2,455 mGycm 2,455 mGycm 0 mGycm
--- OUTSIDE RECORDS SUMMARY | 2025-06-03 18:52 | XMS_ITS | Encounter Summary ---
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
--- OUTSIDE RECORDS SUMMARY | 2025-06-03 18:52 | XMS_ITS | Encounter Summary ---
Author Organization [facility] Address [address] [place] [address] Phone Care Team Providers Care Bottom Scrubber Name Role Phone Arvind Castellanos MD Primary Care Provider [phone] Patrick Perez MD Unavailable [phone] Encounter Details Date Type Department Care Team (Late st Contact Info) Description 06/03/[address] 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 He is dizzy, weak and haschills. She stated that the patient would not want to be evaluated in the [facility] because it was too far of a drive. She was advised to take him to the ER for further evaluation and treatment. She verbalized understanding. MD Team informed of call. documented in this encounter Plan of Treatment Not on file documented as of this encounter Visit Diagnoses Not on filedocumented in this encounter Care Teams Bottom Scrubber Relationship Specialty Start Date End Date Arvind Castellanos MD PCP - General 12/24/17 Patrick Perez MD [address] [address] Urology 07/27/21 documented as of this encounter
--- OUTSIDE RECORDS SUMMARY | 2025-06-03 18:52 | XMS_ITS | Clinical Summary ---
Author Organization [facility] Address [address] [place] [address] Care Team Providers Care Meat Seafood Associate Name Role Phone Arvind Castellanos MD Primary Care Provider [phone] Allergies Active Allergy Reactions Criticality Noted Date Comments Meperidine Vomiting High 04/11/2018 Medications amLODIPine 10 MG tablet Take 10 mg by mouth nightly at bedtime. 10/16/2021 Active cyproheptadine 4 MG tablet Take 4 mg by mouth daily. 10/14/2021 Active famotidine 40 MG tablet Take 1 tablet by mouth daily. 08/08/2021 Active HYDROcodone-kari taminophen 7.5-325 MG tablet Take 1 tablet by mouth every 4 (four) hours as needed. 11/28/2021 Active apalutamide 60 MG tablet Take 240 mg by mouth daily. Active vitamin D2, ergocalciferol, 27606 UNITS capsule Take 50,000 Units by mouth. 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 Gender Identity Not on file Sexual Orientation Not on file Last Filed Vital Signs Vital Sign Reading Time Taken Comments Blood Pressure - - Pulse - - Temperature - - Respiratory Rate - - Oxygen Saturation - - Inhaled Oxygen Concentration - - Weight 74.8 kg (165 lb) 01/02/2022 3:50 PM CDT Height 180.3 cm (5' 11) 01/02/2022 3:50 PM CDT Body Mass Index 23.01 01/02/2022 3:50 PM CDT Plan of Treatment Health Maintenance Due Date Last Done Comments Colorectal Cancer Screening Colonoscopy (10 Years) 1955 Hepatitis C 1973 Pneumococcal Vaccine: 50+ Ye ars (1 of 1 - PCV) 2005 Zoster Vaccines (1 of 2) 2005 Annual Medicare Wellness Visit 2020 DTaP, Tdap and Td Vaccines ( 2 - Td or Tdap) 08/12/2024 08/12/2014 COVID-19 Vaccine (1 - 2023-2 5 season) 2025 RSV Immunization or 60+ Years (1 - 1-dose 75+ series) 2030 Meningococcal B Vaccine Aged Out No l onger eligible based on patient's age to complete this topic Meningococcal Vaccine Aged Out No aime esdras eligible based on patient's age to complete this topic RSV Immunizations Under 20 Months Aged Out No longer eligible based on patient's age to complete this topic Insurance MEDICARE [facility] [employer] Care Teams Meat Seafood Associate Relationship Specialty Start Date End Date Arvind Castellanos MD [address] [phone] PCP - General INTERNAL MEDICINE 12/26/21
--- OUTSIDE RECORDS SUMMARY | 2025-06-03 18:53 | XMS_ITS | Encounter Summary ---
Author Organization [facility] Address [address] [place] [address] Phone Care Team Providers Care Cold Roll Operator Name Role Phone Arvind Castellanos MD Primary Care Provider [phone] aPtrick Perez MD Unavailable [phone] Encounter Details Date Type Department Care Team (Late st Contact Info) Description 02/01/2023 Telephone [facility] Medicine Oncology [address] [facility] [address] [place] [id number] Sandra Davila., B.A. 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
--- OUTSIDE RECORDS SUMMARY | 2025-06-03 18:53 | XMS_ITS | Clinical Summary ---
Author Organization [facility] Address [address] [place] [address] Care Team Providers Care Pepper Cutter Name Role Phone Arvind Castellanos MD Primary Care Provider [phone] Patrick Perez MD Unavailable [phone] Allergies Active Allergy Reactions Criticality Noted Date Comments Meperidine Vomiting High 04/11/2018 Medications HYDROcodone-kari taminophen (NORCO) 7.5-325 mg per tabletIndicatio ns:Pain 0 03/27/20 18 Active ondansetron (ZOFRAN) 8 mg tablet Take 1 tablet (8 mg total) by mouth every 8 (eight) hours as needed for nausea or vomiting 10 tablet 02/03/[address] (PROTONIX) 40 mg EC tablet TAKE 1 TABLET BY MOUTH TWICE A DAY 180 tablet 3 11/27/19 25 Active prochlorperazin e (COMPAZINE) 10 mg tablet TAKE 1 TABLET BY MOUTH EVERY 6 HOURS NEEDED FOR NAUSEA 120 tablet 1 04/05/20 25 Active predniSONE (DELTASONE) 10 mg tabletIndicatio ns:Prostate cancer (HCC),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 Remember to bring bottle to each infusion. 025 Discontinued [facility] Systane Complete PF (/AR [id number]) drops eye drops Administer 1 drop into both eyes every 3 (three) hours Instill one drop into each eye at a minimum of 8 times each day. 025 Discontinued [facility] Systane Nighttime Lubricant (/AR [id number]) 94-3 % ointment eye ointment Apply 1 Application to affected eye(s) nightly Pull down the lower lid of each eye and apply a small amount (one-fourth inch) of ointment to the inside of eyelid. 025 Discontinued OLANZapine (ZyPREXA) 2.5 mg tablet Take 1 tablet (2.5 mg total) by mouth nightly 30 tablet 3 04/14/20 25 025 Discontinued Active Problems Problem Noted [...] Encounters Date Type Department Care Team Description 06/03/2025 Telephone [facility] Medicine Oncology [address] [facility] Floor 6 [place] [address] Radha Healy 05/27/2025 Telephone [facility] Medicine Oncology [address] [facility] [address] [place] [address] Alfonso Macias RN 05/26/2025 9:30 AM CDT Infusion [facility] at [address] [place] [id number] 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); Prostate cancer (HCC); 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) 05/26/2025 9:00 AM CDT Office Visit [facility] Oncology [address] [place] [address] [address] [place] [address] Junaid Cifuentes MD PhD 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); Prostate cancer (HCC) 05/26/2025 8:00 AM CDT Clinical Support [facility] at [address] [place] [address] Prostate cancer (HCC); 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) 05/26/2025 Orders Only [facility] - Infusion [address] [facility] Floor 5 [place] [address] Rigoberto Walls [facility] 05/06/2025 Telephone [facility] Oncology [address] [place] [address] [address] [place] [address] Tierney Magana RN 05/05/2025 9:30 AM CDT Infusion [address] [place] [address] 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); Prostate cancer (HCC) 05/05/2025 9:00 AM CDT Office Visit [facility] [address] [place] [address] [address] [place] [address] Gladis Savage, [place] Prostate cancer (HCC); 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) 05/05/2025 8:00 AM CDT Clinical Support [address] [place] [address] Prostate cancer (HCC); 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); Research study patient 05/05/2025 Documentation [facility] at [facility] [address] [facility] [place], [place] [address] 05/03/2025 Orders Only [facility] [address] [place] [address] [address] [place], [place] [phone] Junaid Cifuentes MD PhD Research study patient 04/28/2025 7:42 AM CDT - 04/28/2025 11:59 PM CDT Hospital Encounter [facility] Imaging [address] [place], [place] [address] Vida Weller RN Garcia, Susan, RN Prostate cancer (HCC) Discharge Disposition: Discharge to home or self care 04/27/2025 Telephone [facility] [address] [place], [place] [address] Padmini Webb RN 04/14/2025 8:30 AM CDT Office Visit [facility] [address] [place] [address] [address] [place], [place] [address] Junaid Cifuentes MD PhD 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); Prostate cancer (HCC) 04/14/2025 8:00 AM CDT Lab [facility] Center at [facility] [address] [facility] [place] [address] Prostate cancer (HCC); 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) 04/08/2025 11:49 AM CDT - 04/08/2025 11:59 PM CDT Hospital Encounter [facility] [address] [place] [address] Prostate cancer (HCC); 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) Discharge Disposition: Discharge to home or self care 04/08/2025 11:48 AM CDT - 04/08/2025 11:59 PM CDT Hospital Encounter [facility] [address] [place] [address] Discharge Disposition: Discharge to home or self care 04/08/2025 11:47 AM CDT - 04/08/2025 11:59 PM CDT Hospital Encounter [facility] [address] [place] [address] Prostate cancer (HCC); 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) Discharge Disposition: Discharge to home or self care 03/24/2025 8:40 AM CDT Office Visit [facility] [address] [place] [address] [address] [place] [phone] Gladis Savage NP 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); Prostate cancer (HCC) 03/24/2025 7:45 AM CDT Lab [facility] Center at [facility] [address] [facility] [place] [phone] Prostate cancer (HCC); 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) 03/23/2025 11:38 AM CDT - 03/23/2025 11:59 PM CDT Hospital Encounter [facility] [address] [facility] Medical Office Building 2 [place] [address] Prostate cancer (HCC); 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) Discharge Disposition: Discharge to home or self care 03/09/2025 Telephone [facility] [address] [facility] [address] [place] [phone] Sheila Richards CMA BP issues 03/03/2025 10:15 AM CDT Lab [facility] at [facility] [address] [facility] [place] [address] Prostate cancer (HCC); 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) from Last 3 Months Immunizations Immunization Administration Dates Next Due Tdap 08/12/2014 Surgical History Surgery Date Site/Laterality Comments PROSTATECTOMY LUMBAR DISC SURGERY NECK SURGERY PORT PLACEMENT CHEST >5 YEARS 04/28/2025 N/A Medical History Medical History Date Comments Cancer [...] on file Legal Sex Male 4:46 AM [employer] Gender Identity Not on file Sexual Orientation Not on file Obstetrics History Last Filed Vital Signs Vital Sign Reading Time Taken Comments Blood Pressure 158/87 05/26/2025 9:38 AM CDT Pulse 53 05/26/2025 9:38 AM CDT Temperature 36.4 C (97.5 F) 05/26/2025 8:06 AM CDT Respiratory Rate 16 05/26/2025 8:06 AM CDT Oxygen Saturation 98% 05/26/2025 8:06 AM CDT Inhaled Oxygen Concentration - - Weight 57.9 kg (127 lb 10.3 oz) 05/26/2025 8:06 AM CDT Height 177 cm (5' 9.69) 05/05/2025 10: 25 AM CDT Body Mass Index 18.48 05/05/2025 10:25 AM CDT Plan of Treatment Health Maintenance Due Date Last Done Comments Colon Cancer Screening-Colonoscopy 1955 Depression Screening 1955 Hepatitis C Screening 1955 Hepatitis B Screening 1973 Pneumococcal vaccine 65+ (1 of 2 - PCV) 1974 Zoster Vaccine (1 of 2) 1974 Well Visit 65+ 2020 Covid-19 Vaccine (3 - Pfizer risk series) 05/19/2021 04/21/2021, 03/31/2021 DTaP/Tdap/Td Vaccine (2 - Td or Tdap) 08/12/2024 08/12/2014 Influenza Vaccine (#1) 2025 Fall Risk Assessment 04/28/2026 04/28/2025 Prostate Cancer Screening-PSA Discontinued , 05/05/2025, 04/14/2025, Additional history exists Medical Devices Implanted Type Area Grain Inspector Device Identifier Shelf Expiration Date Model / Serial / Lot [employer] Excela Low Porfile Power Port 8fr 1.6mm 1 Lumen [id number] - [id number] Implanted:Qty: 1 on 04/28/2025 at [facility] [employer] 12/13/2029 [id number] / / [id number] Procedures Procedure Name Priority Date/Time Associated Diagnosis Comments 1,25 DIHYDROXYCHOLECALCIFEROL STAT 7:55 AM CDT Prostate cancer (HCC) 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) EGFR STAT 05/26/2025 7:55 AM CDT Prostate cancer (HCC) 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) DIFFERENTIAL AUTO Routine 05/26/2025 7:55 AM CDT Prostate cancer (HCC) 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) PSA DIAGNOSTIC Routine 05/26/2025 7:55 AM CDT Prostate cancer (HCC) 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) CBC WITH AUTO DIFFERENTIAL Routine 05/26 7:55 AM CDT Prostate cancer (HCC) 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) COMPREHENSIVE METABOLIC PANEL STAT 7:55 AM CDT Prostate cancer (HCC) 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) URINALYSIS, MICROSCOPIC ONLY Routine 8:30 AM CDT Research study patient URINALYSIS AND REFLEX TO MICROSCOPIC Routine 05/05/2025 8:30 AM CDT Research study patient EGFR STAT 05/05/2025 8:28 AM CDT Prostate cancer (HCC) 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) DIFFERENTIAL AUTO Routine 05/05/2025 8:28 AM CDT Prostate cancer (HCC) 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) PHOSPHORUS Routine 05/05/2025 8:28 AM CDT Research study patient URIC ACID Routine 05/05/2025 8:28 AM CDT Research study patient LACTATE DEHYDROGENASE Routine 05/05/2025 8:28 AM CDT Research study patient TRIGLYCERIDES Routine 05/05/2025 8:28 AM CDT Research study patient CREATINE KINASE (CK), TOTAL Routine 04/23 8:28 AM CDT Research study patient CBC WITH AUTO DIFFERENTIAL Routine 05/05 8:28 AM CDT Prostate cancer (HCC) 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) COMPREHENSIVE METABOLIC PANEL STAT 8:28 AM CDT Prostate cancer (HCC) 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) PSA DIAGNOSTIC Routine 05/05/2025 8:28 AM CDT Prostate cancer (HCC) 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) PORT PLACEMENT CHEST >5 YEARS Schedule Routine, Read Routine (OP Routine) 04/28/2025 10:13 AM CDT Prostate cancer (HCC) URINALYSIS, MICROSCOPIC ONLY STAT 8:29 AM CDT Prostate cancer (HCC) 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) URINALYSIS AND REFLEX TO MICROSCOPIC AND CULTURE STAT 04/14/2025 8:29 AM CDT Prostate cancer (HCC) 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) EGFR STAT 04/14/2025 8:09 AM CDT Prostate cancer (HCC) 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) DIFFERENTIAL AUTO STAT 04/14/2025 8:09 AM CDT Prostate cancer (HCC) 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) CBC WITH AUTO DIFFERENTIAL STAT 04/14 8:09 AM CDT Prostate cancer (HCC) 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) COMPREHENSIVE METABOLIC PANEL STAT 8:09 AM CDT Prostate cancer (HCC) 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) PHOSPHORUS STAT 04/14/2025 8:09 AM CDT Prostate cancer (HCC) 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) URIC ACID STAT 04/14/2025 8:09 AM CDT Prostate cancer (HCC) 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) GAMMA GT STAT 04/14/2025 8:09 AM CDT Prostate cancer (HCC) 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) CREATINE KINASE (CK), TOTAL STAT 03/24 8:09 AM CDT Prostate cancer (HCC) 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) TRIGLYCERIDES STAT 04/14/2025 8:09 AM CDT Prostate cancer (HCC) 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) LACTATE DEHYDROGENASE Routine 04/14/2025 8:09 AM CDT Prostate cancer (HCC) 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) PSA DIAGNOSTIC Routine 04/14/2025 8:09 AM CDT Prostate cancer (HCC) 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) NM BONE IMAGING WHOLE BODY Schedule Routine, Read Routine (OP Routine) 04/08/2025 2:31 PM CDT Prostate cancer (HCC) 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) CT CHEST ABDOMEN PELVIS W CONTRAST Schedule Routine, Read Routine (OP Routine) 04/08/2025 11:59 AM CDT Prostate cancer (HCC) 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) URINALYSIS, MICROSCOPIC ONLY STAT 10/2024 7:50 AM CDT Prostate cancer (HCC) 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) URINALYSIS AND REFLEX TO MICROSCOPIC AND CULTURE STAT 03/24/2025 7:50 AM CDT Prostate cancer (HCC) 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) EGFR STAT 03/24/2025 7:45 AM CDT Prostate cancer (HCC) 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) DIFFERENTIAL AUTO STAT 03/24/2025 7:45 AM CDT Prostate cancer (HCC) 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) PSA DIAGNOSTIC Routine 03/24/2025 7:45 AM CDT Prostate cancer (HCC) 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) LACTATE DEHYDROGENASE Routine 03/24/2025 7:45 AM CDT Prostate cancer (HCC) 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) TRIGLYCERIDES STAT 03/24/2025 7:45 AM CDT Prostate cancer (HCC) 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) CREATINE KINASE (CK), TOTAL STAT 10/2024 7:45 AM CDT Prostate cancer (HCC) 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) GAMMA GT STAT 03/24/2025 7:45 AM CDT Prostate cancer (HCC) 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) URIC ACID STAT 03/24/2025 7:45 AM CDT Prostate cancer (HCC) 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) PHOSPHORUS STAT 03/24/2025 7:45 AM CDT Prostate cancer (HCC) 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) COMPREHENSIVE METABOLIC PANEL STAT 7:45 AM CDT Prostate cancer (HCC) 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) CBC WITH AUTO DIFFERENTIAL STAT 03/24 7:45 AM CDT Prostate cancer (HCC) 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) PET/CT PROSTATE CANCER PSMA SKULL TO THIGH Schedule Routine, Read Routine (OP Routine) 03/23/2025 1:26 PM CDT Prostate cancer (HCC) 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) EGFR Routine 03/03/2025 10:05 AM CDT Prostate cancer (HCC) 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) DIFFERENTIAL AUTO Routine 03/03/2025 10:05 AM CDT Prostate cancer (HCC) 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) CBC WITH AUTO DIFFERENTIAL Routine 03/03 10:05 AM CDT Prostate cancer (HCC) 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) COMPREHENSIVE METABOLIC PANEL Routine 10:05 AM CDT Prostate cancer (HCC) 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) PHOSPHORUS Routine 03/03/2025 10:05 AM CDT Prostate cancer (HCC) 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) URIC ACID Routine 03/03/2025 10:05 AM CDT Prostate cancer (HCC) 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) TRIGLYCERIDES Routine 03/03/2025 10:05 AM CDT Prostate cancer (HCC) 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) GAMMA GT Routine 03/03/2025 10:05 AM CDT Prostate cancer (HCC) 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 73 [...] was last reviewed 2021. Testing performed by: [facility], [address] [place] [address] Blood 05/26/2025 7:55 AM CDT 05/26/2025 8:23 AM CDT Junaid Cifuentes MD PhD LAB BLOOD ORDERABLES Final Result [facility] [address] Department [place] [address] * (ABNORMAL) Differential, auto (05/26/2025 7:55 AM CDT) Neutrophil abs 7.67(H) 1.50 - 6.50 K/cumm Comment:Testing performed by : [facility], [facility], [address] [place] [address] Imm gran abs 0.04 0.00 - 0.10 K/cumm GORAN HELM Comment:Testing performed by : [facility] 2, [address] [place] [address] Lymphocyte abs 0.99 0.80 - 3.30 K/cumm GORAN HELM Comment:Testing performed by : [facility] 2, [address] [place] [address] Monocyte abs 0.58 0.20 - 0.80 K/cumm GORAN HELM Comment:Testing performed by : [facility] 2, [address] [place] [address] Eosinophil abs 0.00 0.00 - 0.50 K/cumm CERNER BJWCH Comment:Testing performed by : [facility], [facility], [address] [place] [address] Basophil abs 0.02 0.00 - 0.10 K/cumm CERNER [facility] Comment:Testing performed by : [facility], [facility], [address] [place] [address] Neutrophil pct 82.6 % CERNER BJWCH Comment: Interpretive Data Percent cell count reference ranges are not reported, since discordance with absolute values may lead to misinterpretation of CBC data. Current Interpretive Data was last revised on 2017. Testing performed by: [facility], [facility], [address] [place] [address] Imm gran pct 0.4 % CERNER BJW[facility] Comment: Interpretive Data Percent cell count reference ranges are not reported, since discordance with absolute values may lead to misinterpretation of CBC data. Current Interpretive Data was last revised on 2017. Testing performed by: [facility], [facility], [address] [place] [address] Lymphocyte pct 10.6 % CERNER BJW[facility] Comment: Interpretive Data Percent cell count reference ranges are not reported, since discordance with absolute values may lead to misinterpretation of CBC data. Current Interpretive Data was last revised on 2017. Testing performed by: [facility], [facility], [address] [place] [address] Monocyte pct 6.2 % CERNER [facility] Comment: Interpretive Data Percent cell count reference ranges are not reported, since discordance with absolute values may lead to misinterpretation of CBC data. Current Interpretive Data was last revised on 2017. Testing performed by: [facility], [facility], [address] [place] [address] Eosinophil pct 0.0 % CERNER [facility] Comment: Interpretive Data Percent cell count reference ranges are not reported, since discordance with absolute values may lead to misinterpretation of CBC data. Current Interpretive Data was last revised on 2017. Testing performed by: [facility] 2, [address] [place] [address] Basophil pct 0.2 % GORAN HELM Comment: Interpretive Data Percent cell count reference ranges are not reported, since discordance with absolute values may lead to misinterpretation of CBC data. Current Interpretive Data was last revised on 2017. Testing performed by: [facility] 2, [address] [place] [address] Blood 05/26/2025 7:55 AM CDT 05/26/2025 7:56 AM CDT us Junaid Cifuentes MD PhD LAB BLOOD ORDERABLES Final Result GORAN HELM [address] [facility]. Department [place] [address] * (ABNORMAL) CBC with auto differential (05/26/2025 7:55 AM CDT) WBC 9.30 3.80 - 9.90 K/cumm Comment:Testing performed by : [place] [address], [address] [place] [address] Hgb 14.1 13.0 - 17.5 g/dL GORAN HELM Comment:Testing performed by : [address] [place] [address] Hct 43.1 38.9 - 50.3 % GORAN HELM Comment:Testing performed by : [place] [address], [address] [place] [address] Plt 211 150 - 400 K/cumm GORAN HELM Comment:Testing performed by : [place] [address], [address] [place] [address] MPV 10.1 9.1 - 12.3 fL GORAN HELM Comment:Testing performed by : [place] [address], [address] [place] [address] RBC 4.81 4.30 - 5.80 M/cumm GORAN YOUS[facility] Comment:Testing performed by : [facility], [facility], [address] [place] [address] MCV 89.6 81.3 - 96.4 fL [facility] Comment:Testing performed by : [facility], [facility], [address] [place] [address] MCH 29.3 27.1 - 33.3 pg [facility] Comment:Testing performed by : [facility], [facility], [address] [place] [address] MCHC 32.7 32.3 - 35.7 g/dL [facility] Comment:Testing performed by : [facility], [facility], [address] [place] [address] RDW CV 12.7 11.1 - 14.9 % [facility] Comment:Testing performed by : [facility], [facility], [address] [place] [address] RDW SD 41.5 35.7 - 48.1 fL [facility] Comment:Testing performed by : [facility], [facility], [address] [place] [address] ANC Prelim 7.67(H) 1.50 - 6.50 K/cumm [facility] Comment: Interpretive Data The rapid ANC is a preliminary automated count and may vary from the final ANC (Neut Abs) reported in the WBC differential that follows. Current interpretive data was last revised 2024. Testing performed by: [facility], [facility], [address] [place] [address] Blood 05/26/2025 7:55 AM CDT 05/26/2025 7:56 AM CDT us Junaid Cifuentes MD PhD LAB BLOOD ORDERABLES Final Result [facility] [address] [facility] [place] [address] * 1,25 Dihydroxycholecalciferol (05/26/2025 7:55 AM CDT) Pathologist [facility] 1-25-di-OH Vit D 35 18 - 64 pg/mL [facility] Comment: ADDITIONAL INFORMATION This test was developed and its performance characteristics determined by [facility] in a manner consistent with CLIA requirements. This test has not been cleared or approved by the U.S. Food and Drug Administration. Test Performed by: [facility] [address] [place] [address] Preliminary School Psychologist: Angelique Gomez Ph.D.; CLIA# [id number] Testing performed by: [facility], [address] [place] [address] Blood 05/26/2025 7:55 AM CDT 05/26/2025 10:06 AM CDT Junaid Cifuentes MD PhD LAB BLOOD ORDERABLES Final Result GORAN BJ[facility] [address] Department [place] [address] [facility] * (ABNORMAL) PSA diagnostic (05/26/2025 7:55 AM CDT) Pathologist [facility] PSA-Total 47.94(H) <=6.20 ng/mL Comment: Interpretive Data AGE SEX REFERENCE [...] data last revised 22. Testing performed by: [facility], [address] [place] [address] Blood 05/26/2025 7:55 AM CDT 05/26/2025 8:23 AM CDT us Junaid Cifuentes MD PhD LAB BLOOD ORDERABLES Final Result [facility] [address] Department [place] [address] * (ABNORMAL) Comprehensive metabolic panel (05/26/2025 7:55 AM CDT) Sodium 141 135 - 145 mmol/L Comment:Testing performed by : [facility], [address], [place] [address] Potassium, pl 4.3 3.3 - 4.9 mmol/L [facility] B[facility] Comment:Testing performed by : [facility], [address] [place] [address] Chloride 101 97 - 110 mmol/L CERNICHOLE BJW[facility] Comment:Testing performed by : [facility], [address] [place] [address] CO2 30 22 - 32 mmol/L CERNER BJWCH Comment:Testing performed by : [facility], [address] [place] [address] Anion gap 10 2 - 15 mmol/L [facility]ERNICHOLE BJW[facility] Comment:Testing performed by : [facility], [address] [place] [address] BUN 22 6 - 25 mg/dL CERNER BJWCH Comment:Testing performed by : [facility], [address] [place] [address] Creatinine 0.90 0.80 - 1.30 mg/dL CERNER BJWCH Comment:Testing performed by : [facility], [address] [place] [address] Glucose 152 70 - 199 mg/dL CERNER BJW[facility] Comment: [...] was last revised 2022. Testing performed by: [facility], [address], [place] [address] Calcium 9.6 8.5 - 10.3 mg/dL CERNER BJWCH Comment:Testing performed by : [facility], [address], [place] [address] Bilirubin, total 0.3 0.1 - 1.2 mg/dL CERNER BJWCH Comment:Testing performed by : [facility], [address], [place] [address] Protein, pl 6.4(L) 6.5 - 8.5 g/dL CERNER BJWCH Comment:Testing performed by : [facility], [address], [place] [address] Albumin 4.4 3.5 - 5.0 g/dL CERNER BJWCH Comment:Testing performed by : [facility], [address], [place] [address] Alk phos 76 40 - 130 Units/L CERNER BJWCH Comment:Testing performed by : [facility], [address], [place] [address] ALT 19 7 - 55 Units/L CERNER BJWCH Comment:Testing performed by : [facility], [address], [place] [address] AST 18 10 - 50 Units/L CERNER BJWCH Comment:Testing performed by : [facility], [address], [place] [address] Blood 05/26/2025 7:55 AM CDT 05/26/2025 8:23 AM CDT Junaid Cifuentes MD PhD LAB BLOOD ORDERABLES Edited Result - Final GORAN RASHEEDCH [address] Department of Laboratories [place], [place] [id number] * (ABNORMAL) Urinalysis reflex to microscopic (05/05/2025 8:30 AM CDT) Color, ur Straw Yellow Comment:Testing performed by : [facility], [address], [place] [address] Clarity, ur Clear Clear CERNER BJWCH Comment:Testing performed by : [facility], [address], [place] [address] Specific gravity, ur 1.022 1.003 - 1.030 CERNER BJWCH Comment:Testing performed by : [facility], [address], [place] [address] pH, urine 6.0 CERNICHOLE BJW[facility] Comment: Interpretive Data U rine pH is affected by diet, medications, systemic acid-base disturbances, and renal tubular function. pH may affect urinary stone formation. For example, urine pH below 6.0 may help reduce the tendency for calcium phosphate stones and pH greater than 6.0 may reduce the tendency for uric acid stone formation. Source: [employer] Current Interpretive Data was last revised on 2017 Testing performed by: [facility], [address], [place] [address] Protein, ur ql 1+(A) Negative CERNER BJWCH Comment:Testing performed by : [facility], [address], [place] [address] Glucose, ur ql Negative Negative CERNER BJWCH Comment:Testing performed by : [facility], [address], [place] [address] Ketones, ur Negative Negative CERNER BJWCH Comment:Testing performed by : [facility], [address], [place] [address] Bilirubin, ur Negative Negative CERNER BJWCH Comment:Testing performed by : [facility], [address], [place] [address] Blood, ur 2+(A) Negative CERNER BJWCH Comment:Testing performed by : [facility], [address], [place] [address] Urobilinogen, ur <2.0 <2.0 mg/dL GORAN HELM Comment:Testing performed by : [facility], [address], [place] [address] Nitrite, ur Negative Negative GORAN HELM Comment:Testing performed by : [facility], [address], [place] [address] Leukocyte esterase, ur Negative Negative GORAN HELM Comment:Testing performed by : [facility], [address], [place] [address] UA reflex comment Reflex to microscopic UA will be performed. GORAN HELM Comment:Testing performed by : [facility], [address], [place] [address] Urine 05/05/2025 8:30 AM CDT 05/05/2025 9:20 AM CDT us Junaid Cifuentes MD PhD LAB URINE ORDERABLES Final Result [facility] [address] Department [place] [address] * (ABNORMAL) Urinalysis, microscopic only (05/05/2025 8:30 AM CDT) WBC, ur 0-5 0 - 5 /HPF Comment:Testing performed by : [facility], [address], [place] [address] RBC, ur 6-10(A) 0 - 2 /HPF GORAN HELM Comment:Testing performed by : [facility], [address], [place] [address] Mucous, ur Present(A) GORAN HELM Comment:Testing performed by : [facility], [address], [place] [address] Urine 05/05/2025 8:30 AM CDT 05/05/2025 9:20 AM CDT Junaid Cifuentes MD PhD LAB URINE ORDERABLES Final Result Performing Organization Address [facility] de Phone Number GORAN RASHEED [address] [address] [facility]. [place] [address] * eGFR (05/05/2025 8:28 AM CDT) eGFR >90 >=60 mL/min/1. 73 [...] was last reviewed 2021. Testing performed by: [facility], [address] [facility], [place] [address] Blood 05/05/2025 8:28 AM CDT 05/05/2025 8:49 AM CDT Junaid Cifuentes MD PhD LAB BLOOD ORDERABLES Final Result Performing Organization Address City/[facility] Co de Phone Number GORAN YOUSSEFCH [address] [address] [facility]. [place] [address] * (ABNORMAL) Differential, auto (05/05/2025 8:28 AM CDT) Neutrophil abs 5.58 1.50 - 6.50 K/cumm Comment:Testing performed by : [facility], [facility], [address] [place] [address] Imm gran abs 0.03 0.00 - 0.10 K/cumm CERNER BJWCH Comment:Testing performed by : [facility], [facility], [address], [place] [address] Lymphocyte abs 0.47(L) 0.80 - 3.30 K/cumm CERNER BJWCH Comment:Testing performed by : [facility], [facility], [address], [place] [address] Monocyte abs 0.38 0.20 - 0.80 K/cumm CERNER BJWCH Comment:Testing performed by : [facility], [facility], [address] [place] [address] Eosinophil abs 0.01 0.00 - 0.50 K/cumm CERNER BJWCH Comment:Testing performed by : [facility], [facility], [address] [place] [address] Basophil abs 0.01 0.00 - 0.10 K/cumm CERNER BJWCH Comment:Testing performed by : [facility], [facility], [address] [place] [address] Neutrophil pct 85.9 % CERNER BJWCH Comment: Interpretive Data Percent cell count reference ranges are not reported, since discordance with absolute values may lead to misinterpretation of CBC data. Current Interpretive Data was last revised on 2017. Testing performed by: [facility], [facility], [address] [place] [address] Imm gran pct 0.5 % CERNER BJWCH Comment: Interpretive Data Percent cell count reference ranges are not reported, since discordance with absolute values may lead to misinterpretation of CBC data. Current Interpretive Data was last revised on 2017. Testing performed by: [facility], [facility], [address] [place] [address] Lymphocyte pct 7.3 % CERNER BJWCH Comment: Interpretive Data Percent cell count reference ranges are not reported, since discordance with absolute values may lead to misinterpretation of CBC data. Current Interpretive Data was last revised on 2017. Testing performed by: [facility], [facility], [address] [place] [address] Monocyte pct 5.9 % GORAN HELM Comment: Interpretive Data Percent cell count reference ranges are not reported, since discordance with absolute values may lead to misinterpretation of CBC data. Current Interpretive Data was last revised on 2017. Testing performed by: [facility], [facility], [address] [place] [address] Eosinophil pct 0.2 % GORAN HELM Comment: Interpretive Data Percent cell count reference ranges are not reported, since discordance with absolute values may lead to misinterpretation of CBC data. Current Interpretive Data was last revised on 2017. Testing performed by: [facility], [facility], [address] [place] [address] Basophil pct 0.2 % GORAN HELM Comment: Interpretive Data Percent cell count reference ranges are not reported, since discordance with absolute values may lead to misinterpretation of CBC data. Current Interpretive Data was last revised on 2017. Testing performed by: [facility], [facility], [address] [place] [address] Blood 05/05/2025 8:28 AM CDT 05/05/2025 8:34 AM CDT Junaid Cifuentes MD PhD LAB BLOOD ORDERABLES Final Result GORAN YOUSSEFW [address] [facility]. Department [place] [address] * CBC with auto differential (05/05/2025 8:28 AM CDT) WBC 6.48 3.80 - 9.90 K/cumm Comment:Testing performed by : [facility], [facility], [address] [place] [address] Hgb 13.5 13.0 - 17.5 g/dL CERNER BJWCH Comment:Testing performed by : [facility], [facility], [address], [place] [address] Hct 40.5 38.9 - 50.3 % CERNER BJWCH Comment:Testing performed by : [facility], [address], [place] [address] Plt 199 150 - 400 K/cumm CERNER BJWCH Comment:Testing performed by : [place] [address], [address], [place] [address] MPV 10.5 9.1 - 12.3 fL CERNER BJWCH Comment:Testing performed by : [place] [address], [address], [place] [address] RBC 4.61 4.30 - 5.80 M/cumm CERNER BJWCH Comment:Testing performed by : [place] [address], [place] [address] MCV 87.9 81.3 - 96.4 fL CERNER BJWCH Comment:Testing performed by : [address], [place] [address] MCH 29.3 27.1 - 33.3 pg CERNER BJWCH Comment:Testing performed by : [place] [address], [address], [place] [address] MCHC 33.3 32.3 - 35.7 g/dL CERNER BJWCH Comment:Testing performed by : [place] [address], [address], [place] [address] RDW CV 12.5 11.1 - 14.9 % CERNER BJWCH Comment:Testing performed by : [place] [address], [address], [place] [address] RDW SD 40.3 35.7 - 48.1 fL CERNER BJWCH Comment:Testing performed by : [place] [address], [address], [place] [address] ANC Prelim 5.58 1.50 - 6.50 K/cumm GORAN YOUSSEFWCH Comment: Interpretive Data The rapid ANC is a preliminary automated count and may vary from the final ANC (Neut Abs) reported in the WBC differential that follows. Current interpretive data was last revised 2024. Testing performed by: [facility], [facility], [address], [place] [address] Blood 05/05/2025 8:28 AM CDT 05/05/2025 8:34 AM CDT Junaid Cifuentes MD PhD LAB BLOOD ORDERABLES Final Result Performing Organization Address City/[facility]/ZIP Co de Phone Number [facility] [address] [facility]. [facility] [place] [address] * Uric acid (05/05/2025 8:28 AM CDT) Uric acid 3.5 3.0 - 8.0 mg/dL Comment:Testing performed by : [facility], [address], [place] [address] Blood 05/05/2025 8:28 AM CDT 05/05/2025 8:49 AM CDT Junaid Cifuentes MD PhD LAB BLOOD ORDERABLES Final Result Performing Organization Address City/[facility]/ZIP Co de Phone Number [facility] [address] [facility]. [facility] [place] [address] * Triglycerides (05/05/2025 8:28 AM CDT) Triglycerides 123 <=149 mg/dL Comment: Interpretive Data Ages < [...] last revised on 2018. Testing performed by: [facility], [address] [place], [place] [address] [address] Blood 05/05/2025 8:28 AM CDT 05/05/2025 8:49 AM CDT Junaid Cifuentes MD PhD LAB BLOOD ORDERABLES Final Result Performing Organization Address City/[facility] Co de Phone Number [facility] [address] [address] [facility]. [facility] [place] [address] * (ABNORMAL) PSA diagnostic (05/05/2025 8:28 AM CDT) PSA-Total 61.58(H) <=6.20 ng/mL Comment: Interpretive Data AGE SEX REFERENCE INTERVAL 0 minutes-150 years Female None 0 minutes-49 years Male None 50-59 years Male 0-3.90 60-69 years Male 0-5.40 70-79 years Male 0-6.20 80-150 years Male 0-6.20 The [employer] PSA Total assay procedure was used. Results from different manufacturers or methods may not be comparable. Serial testing should be performed using the same method. Current interpretive data last revised 22. Testing performed by: [facility], [address] [place] [address] [place] [address] Blood 05/05/2025 8:28 AM CDT 05/05/2025 8:49 AM CDT us Junaid Cifuentes MD PhD LAB BLOOD ORDERABLES Final Result Performing Organization Address City/[facility] Co de Phone Number GORAN BJWCH [address] [address] [facility]. [facility] [place] [address] * Phosphorus (05/05/2025 8:28 AM CDT) [facility] Phosphorus, pl 3.3 2.3 - 4.5 mg/dL Comment:Testing performed by : [facility], [address] [place] [address] Blood 05/05/2025 8:28 AM CDT 05/05/2025 8:49 AM CDT Junaid Cifuentes MD PhD LAB BLOOD ORDERABLES Final Result Performing Organization Address City/[facility] Co de Phone Number [facility] [address] [address]. [facility] [place] [id number] * Lactate dehydrogenase (LD) (05/05/2025 8:28 AM CDT) [facility] Lactate dehydrogenase (LDH) 154 100 - 250 Units/L Comment:Testing performed by : [facility], [address] [place] [address] [place] [address] Blood 05/05/2025 8:28 AM CDT 05/05/2025 8:49 AM CDT Junaid Cifuentes MD PhD LAB BLOOD ORDERABLES Final Result Performing Organization Address [facility] Co de Phone Number [facility] [address] [address] [facility]. [facility] [place] [address] * (ABNORMAL) Creatine kinase (CK), total (05/05/2025 8:28 AM CDT) [facility] CK 28(L) 40 - 300 Units/L Comment:Testing performed by : [facility], [address] [place] [address] Blood 05/05/2025 8:28 AM CDT 05/05/2025 8:49 AM CDT Junaid Cifuentes MD PhD LAB BLOOD ORDERABLES Final Result Performing Organization Address City/[facility] Co de Phone Number [facility] [address] [facility]. [facility] [place] [address] * (ABNORMAL) Comprehensive metabolic panel (05/05/2025 8:28 AM CDT) Sodium 141 135 - 145 mmol/L Comment:Testing performed by : [facility], [address], [place] [address] Potassium, pl 4.0 3.3 - 4.9 mmol/L CERNER BJWCH Comment:Testing performed by : [facility], [address], [place] [address] Chloride 102 97 - 110 mmol/L CERNER BJWCH Comment:Testing performed by : [facility], [address], [place] [address] CO2 28 22 - 32 mmol/L CERNER BJWCH Comment:Testing performed by : [facility], [address], [place] [address] Anion gap 11 2 - 15 mmol/L CERNER BJWCH Comment:Testing performed by : [facility], [address], [place] [address] BUN 18 6 - 25 mg/dL CERNER BJWCH Comment:Testing performed by : [facility], [address], [place] [address] Creatinine 0.70(L) 0.80 - 1.30 mg/dL CERNER BJWCH Comment:Testing performed by : [facility], [address], [place] [address] Glucose 142 70 - 199 mg/dL CERNER BJWCH Comment: [...] was last revised 2022. Testing performed by: [facility], [address], [place] [address] Calcium 9.5 8.5 - 10.3 mg/dL CERNER BJWCH Comment:Testing performed by : [facility], [address], [place] [address] Bilirubin, total 0.3 0.1 - 1.2 mg/dL CERNER BJWCH Comment:Testing performed by : [facility], [address], [place] [address] Protein, pl 6.8 6.5 - 8.5 g/dL CERNER BJWCH Comment:Testing performed by : [facility], [address], [place] [address] Albumin 4.3 3.5 - 5.0 g/dL CERNER BJWCH Comment:Testing performed by : [facility], [address], [place] [address] Alk phos 74 40 - 130 Units/L CERNER BJWCH Comment:Testing performed by : [facility], [address], [place] [address] ALT 16 7 - 55 Units/L CERNER BJWCH Comment:Testing performed by : [facility], [address], [place] [address] AST 22 10 - 50 Units/L CERNER BJWCH Comment:Testing performed by : [facility], [address], [place] [address] Blood 05/05/2025 8:28 AM CDT 05/05/2025 8:49 AM CDT us Junaid Cifuentes MD PhD LAB BLOOD ORDERABLES Final Result [facility] [address] Department [place] [address] * IR Port Placement Chest > 5 Years (04/28/2025 10:13 AM CDT) Anatomical Region Laterality Modality Chest N/A X-Ray Angiograph y 04/28/2025 10:3 9 AM CDT Impressions 04/28/2025 10:39 AM CDT Successful chest wall port placement. PLAN: The catheter is ready for immediate use. Please note that a power injectable port was placed. When treatment is completed, removal can be scheduled by calling [facility] - [phone] [facility] - [phone] Electronically signed by: Donal Carrillo PA-C Narrative 04/28/2025 10:39 AM CDT EXAMINATION: PORT PLACEMENT USING ULTRASOUND GUIDANCE (STD TECHNIQUE) HISTORY: 69-year-old male with history of prostate cancer presents for port placement for initiation of chemotherapy. PROVIDER PRESENCE: Donal Carrillo PA-C was present from the beginning to the end of the procedure. SEDATION: Conscious sedation was used for the procedure. TECHNIQUE: The risks, benefits and alternatives were discussed and informed consent was obtained. Prior to beginning the procedure, [facility] Protocol was used to confirm the patient's identity and planned procedure. Fluoroscopy time has been recorded in the electronic medical record. Prior to the procedure, the central veins were evaluated by ultrasound, an image recorded and placed in the patient's chart. Maximum sterile barriers including cap, mask, hand hygiene, sterile gloves, sterile gown, large sterile drape and 2% chlorhexidine for cutaneous antisepsis were used. The skin over the right internal jugular vein was sterilely prepped, draped and infiltrated with 1% buffered lidocaine. The vein was accessed with a 21 gauge needle using realtime ultrasound guidance. A guidewire and catheter were then passed centrally using fluoroscopic guidance. The intravascular length from the access site to the right atrium was then measured. After infiltrating the skin in the subclavicular region with 1% buffered lidocaine, a short transverse incision was made and the pocket for the low-profile power injectable reservoir was formed by blunt dissection. The catheter was tunneled to the IJ access site, cut to the appropriate length and inserted through a peel-away sheath. The catheter was flushed with 100U/ml heparin and the access needle removed. The deep tissues were approximated using 4-0 Monocryl and the incision closed using skin glue. The incision in the lower neck was closed in a similar fashion. ESTIMATED BLOOD LOSS: Minimal. CONDITION: Stable DISCHARGED TO: outpatient recovery. FINDINGS: Ultrasound image shows a patent vein in the lower neck. The final fluoroscopic image demonstrates the catheter with its tip at the cavoatrial junction. No complications are seen. Procedure Note Donal Carrillo PA - 04/28/2025 EXAMINATION: PORT PLACEMENT USING ULTRASOUND GUIDANCE (STD TECHNIQUE) HISTORY: 69-year-old male with history of prostate cancer presents for port placement for initiation of chemotherapy. PROVIDER PRESENCE: Donal Carrillo PA-C was present from the beginning to the end of the procedure. SEDATION: Conscious sedation was used for the procedure. TECHNIQUE: The risks, benefits and alternatives were discussed and informed consent was obtained. Prior to beginning the procedure, [facility] Protocol was used to confirm the patient's identity and planned procedure. Fluoroscopy time has been recorded in the electronic medical record. Prior to the procedure, the central veins were evaluated by ultrasound, an image recorded and placed in the patient's chart. Maximum sterile barriers including cap, mask, hand hygiene, sterile gloves, sterile gown, large sterile drape and 2% chlorhexidine for cutaneous antisepsis were used. The skin over the right internal jugular vein was sterilely prepped, draped and infiltrated with 1% buffered lidocaine. The vein was accessed with a 21 gauge needle using realtime ultrasound guidance. A guidewire and catheter were then passed centrally using fluoroscopic guidance. The intravascular length from the access site to the right atrium was then measured. After infiltrating the skin in the subclavicular region with 1% buffered lidocaine, a short transverse incision was made and the pocket for the low-profile power injectable reservoir was formed by blunt dissection. The catheter was tunneled to the IJ access site, cut to the appropriate length and inserted through a peel-away sheath. The catheter was flushed with 100U/ml heparin and the access needle removed. The deep tissues were approximated using 4-0 Monocryl and the incision closed using skin glue. The incision in the lower neck was closed in a similar fashion. ESTIMATED BLOOD LOSS: Minimal. CONDITION: Stable DISCHARGED TO: outpatient recovery. FINDINGS: Ultrasound image shows a patent vein in the lower neck. The final fluoroscopic image demonstrates the catheter with its tip at the cavoatrial junction. No complications are seen. IMPRESSION: Successful chest wall port placement. PLAN: The catheter is ready for immediate use. Please note that a power injectable port was placed. When treatment is completed, removal can be scheduled by calling [facility] - [phone] [facility] - [phone] Electronically signed by: Donal Carrillo PA-C Junaid Cifuentes MD PhD IMG IR PROCEDURES Fin al Result * (ABNORMAL) Urinalysis reflex to microscopic and culture Urine (04/14/2025 8:29 AM CDT) Color, ur Yellow Yellow Comment:Testing performed by : [facility], [address], [place] [address] Clarity, ur Clear Clear CERNER BJWCH Comment:Testing performed by : [facility], [address], [place] [address] Specific gravity, ur >1.030(H) 1.003 - 1.030 CERNER BJWCH Comment:Testing performed by : [facility], [address], [place] [address] pH, urine 5.5 CERNER BJWCH Comment: Interpretive Data U rine pH is affected by diet, medications, systemic acid-base disturbances, and renal tubular function. pH may affect urinary stone formation. For example, urine pH below 6.0 may help reduce the tendency for calcium phosphate stones and pH greater than 6.0 may reduce the tendency for uric acid stone formation. Source: [facility] [employer] Current Interpretive Data was last revised on 2017 Testing performed by: [facility], [address], [place] [address] Protein, ur ql 1+(A) Negative CERNER BJWCH Comment:Testing performed by : [facility], [address], [place] [address] Glucose, ur ql Negative Negative CERNER BJWCH Comment:Testing performed by : [facility], [address], [place] [address] Ketones, ur Negative Negative CERNER BJWCH Comment:Testing performed by : [facility], [address], [place] [address] Bilirubin, ur Negative Negative GORAN HELM Comment:Testing performed by : [facility], [address], [place] [address] Blood, ur 1+(A) Negative GORAN HELM Comment:Testing performed by : [facility], [address], [place] [address] Urobilinogen, ur <2.0 <2.0 mg/dL GORAN HELM Comment:Testing performed by : [facility], [address], [place] [address] Nitrite, ur Negative Negative GORAN HELM Comment:Testing performed by : [facility], [address], [place] [address] Leukocyte esterase, ur Negative Negative GORAN HELM Comment:Testing performed by : [facility], [address], [place] [address] UA reflex comment Reflex to microscopic UA will be performed. GORAN HELM Comment:Testing performed by : [facility], [address], [place] [address] Urine 04/14/2025 8:29 AM CDT 04/14/2025 8:41 AM CDT Junaid Cifuentes MD PhD LAB MICROBIOLOGY - [facility] ORDERABLES Final Result [facility] [address] Department [place] [address] * (ABNORMAL) Urinalysis, microscopic only (04/14/2025 8:29 AM CDT) WBC, ur 0-5 0 - 5 /HPF Comment:Testing performed by : [facility], [address], [place] [address] RBC, ur 11-20(A) 0 - 2 /HPF GORAN HELM Comment:Testing performed by : [facility], [address], [place] [address] Mucous, ur Present(A) GORAN HELM Comment:Testing performed by : [facility], [address], [place] [address] Calcium oxalate crystals, ur Trace(A) GORAN HELM Comment:Testing performed by : [facility], [address], [place] [address] Culture Reflex Comment Reflex conditions for urine culture (WBC >10) not met. GORAN HELM Comment:Testing performed by : [facility], [address], [place] [address] Urine 04/14/2025 8:29 AM CDT 04/14/2025 8:41 AM CDT us Junaid Cifuentes MD PhD LAB URINE ORDERABLES Final Result [facility] [address] Department [place] [address] * eGFR (04/14/2025 8:09 AM CDT) eGFR >90 >=60 mL/min/1. 73 [...] was last reviewed 2021. Testing performed by: [facility], [address], [place] [address] Blood 04/14/2025 8:09 AM CDT 04/14/2025 8:36 AM CDT us Junaid Cifuentes MD PhD LAB BLOOD ORDERABLES Final Result GORAN RASHEED [address] [facility]. Department [place] [address] * (ABNORMAL) Differential, auto (04/14/2025 8:09 AM CDT) Neutrophil abs 3.61 1.50 - 6.50 K/cumm Comment:Testing performed by : [facility], [facility], [address] [place] [address] Imm gran abs 0.01 0.00 - 0.10 K/cumm CERNICHOLE BJWCH Comment:Testing performed by : [facility], [address] [place] [address] Lymphocyte abs 0.65(L) 0.80 - 3.30 K/cumm GORAN BJWCH Comment:Testing performed by : [facility], [facility], [address] [place] [address] Monocyte abs 0.44 0.20 - 0.80 K/cumm GORAN BJWCH Comment:Testing performed by : [facility] 2, [address] [place] [address] Eosinophil abs 0.02 0.00 - 0.50 K/cumm GORAN BJWCH Comment:Testing performed by : [facility], [address] [place] [address] Basophil abs 0.03 0.00 - 0.10 K/cumm GORAN BJWCH Comment:Testing performed by : [facility], [address] [place] [address] Neutrophil pct 75.9 % CERNICHOLE BJWCH Comment: Interpretive Data Percent cell count reference ranges are not reported, since discordance with absolute values may lead to misinterpretation of CBC data. Current Interpretive Data was last revised on 2017. Testing performed by: [facility], [facility], [address] [place] [address] Imm gran pct 0.2 % CERNER BJWCH Comment: Interpretive Data Percent cell count reference ranges are not reported, since discordance with absolute values may lead to misinterpretation of CBC data. Current Interpretive Data was last revised on 2017. Testing performed by: [facility], [facility], [address] [place] [address] Lymphocyte pct 13.7 % CERNER BJWCH Comment: Interpretive Data Percent cell count reference ranges are not reported, since discordance with absolute values may lead to misinterpretation of CBC data. Current Interpretive Data was last revised on 2017. Testing performed by: [facility], [facility], [address] [place] [address] Monocyte pct 9.2 % CERNER BJWCH Comment: Interpretive Data Percent cell count reference ranges are not reported, since discordance with absolute values may lead to misinterpretation of CBC data. Current Interpretive Data was last revised on 2017. Testing performed by: [facility], [facility], [address] [place] [address] Eosinophil pct 0.4 % CERNER BJWCH Comment: Interpretive Data Percent cell count reference ranges are not reported, since discordance with absolute values may lead to misinterpretation of CBC data. Current Interpretive Data was last revised on 2017. Testing performed by: [facility], [facility], [address] [place] [address] Basophil pct 0.6 % CERNER BJWCH Comment: Interpretive Data Percent cell count reference ranges are not reported, since discordance with absolute values may lead to misinterpretation of CBC data. Current Interpretive Data was last revised on 2017. Testing performed by: [facility], [facility], [address] [place] [address] Blood 04/14/2025 8:09 AM CDT 04/14/2025 8:09 AM CDT us Junaid Cifuentes MD PhD LAB BLOOD ORDERABLES Final Result [facility] [address] [facility] [place] [address] * CBC with auto differential (04/14/2025 8:09 AM CDT) WBC 4.67 3.80 - 9.90 K/cumm Comment:Testing performed by : [place] [address], [address] [place] [address] Hgb 13.8 13.0 - 17.5 g/dL GORAN RASHEED Comment:Testing performed by : [address] [place] [address] Hct 41.9 38.9 - 50.3 % GORAN RASHEED Comment:Testing performed by : [address] [place] [address] Plt 158 150 - 400 K/cumm [facility] Comment:Testing performed by : [address] [place] [address] MPV 12.0 9.1 - 12.3 fL [facility] Comment:Testing performed by : [address] [place] [address] RBC 4.75 4.30 - 5.80 M/cumm GORAN HELM Comment:Testing performed by : [place] [address], [address] [place] [address] MCV 88.2 81.3 - 96.4 fL GORAN HELM Comment:Testing performed by : [place] [address], [address] [place] [address] MCH 29.1 27.1 - 33.3 pg CERNICHOLE RASHEEDCH Comment:Testing performed by : [place] [address], [address] [place] [address] MCHC 32.9 32.3 - 35.7 g/dL GORAN YOUSSEFWCH Comment:Testing performed by : [facility], [facility], [address] [place] [address] RDW CV 12.3 11.1 - 14.9 % GORAN YOUSSEFWCH Comment:Testing performed by : [facility], [facility] [address], [address] [place] [address] RDW SD 40.3 35.7 - 48.1 fL [facility] Comment:Testing performed by : [facility], [facility] [address], [address] [place] [address] NRBC abs 0.00 0.00 - 0.01 K/cumm GORAN HELM Comment:Testing performed by : [facility], [facility] [address], [address] [place] [address] Blood 04/14/2025 8:09 AM CDT 04/14/2025 8:09 AM CDT Junaid Cifuentes MD PhD LAB BLOOD ORDERABLES Final Result Performing Organization Address City/[facility]/ZIP Co de Phone Number [facility] [address] [facility]. [facility] [place] [address] * Uric acid (04/14/2025 8:09 AM CDT) Uric acid 3.4 3.0 - 8.0 mg/dL Comment:Testing performed by : [facility], [address] [place] [address] Blood 04/14/2025 8:09 AM CDT 04/14/2025 8:36 AM CDT Junaid Cifuentes MD PhD LAB BLOOD ORDERABLES Final Result [facility] [address] [facility]. [facility] [place] [address] * Triglycerides (04/14/2025 8:09 AM CDT) Triglycerides 116 <=149 mg/dL Comment: Interpretive Data Ages < [...] last revised on 2018. Testing performed by: [facility], [address] [place] [address] Blood 04/14/2025 8:09 AM CDT 04/14/2025 8:36 AM CDT us Junaid Cifuentes MD PhD LAB BLOOD ORDERABLES Final Result [facility] [address] Department [place] [address] * (ABNORMAL) PSA diagnostic (04/14/2025 8:09 AM CDT) PSA-Total 43.09(H) <=6.20 ng/mL Comment: Interpretive Data AGE SEX REFERENCE [...] data last revised 22. Testing performed by: [facility], [address] [place] [address] Blood 04/14/2025 8:09 AM CDT 04/14/2025 8:36 AM CDT Junaid Cifuentes MD PhD LAB BLOOD ORDERABLES Final Result Performing Organization Address [facility] Co de Phone Number [facility] [address] [place] [address] * Phosphorus (04/14/2025 8:09 AM CDT) Pathologist [facility] Phosphorus, pl 3.1 2.3 - 4.5 mg/dL Comment:Testing performed by : [facility], [address] [facility] [place] [address] Blood 04/14/2025 8:09 AM CDT 04/14/2025 8:36 AM CDT Junaid Cifuentes MD PhD LAB BLOOD ORDERABLES Final Result Performing Organization Address [facility] de Phone Number G[facility]AN [facility] [address] [address] [facility] [place] [address] * Lactate dehydrogenase (LD) (04/14/2025 8:09 AM CDT) [facility] Lactate dehydrogenase (LDH) 143 100 - 250 Units/L Comment:Testing performed by : [facility], [address] [facility] [place] [address] Blood 04/14/2025 8:09 AM CDT 04/14/2025 8:36 AM CDT Junaid Cifuentes MD PhD LAB BLOOD ORDERABLES Final Result Performing Organization Address [facility] de Phone Number [facility] [address] [address] [facility] [place] [address] * Gamma GT (04/14/2025 8:09 AM CDT) [facility] GGT 21 10 - 50 Units/L Comment:Testing performed by : [facility], [address], [place] [address] Blood 04/14/2025 8:09 AM CDT 04/14/2025 8:36 AM CDT Junaid Cifuentes MD PhD LAB BLOOD ORDERABLES Final Result Performing Organization Address [facility]/ZIP Co de Phone Number [facility]ORAN B[facility] [address] Department [place] [address] * (ABNORMAL) Creatine kinase (CK), total (04/14/2025 8:09 AM CDT) CK 25(L) 40 - 300 Units/L Comment:Testing performed by : [facility], [address] [place] [address] Blood 04/14/2025 8:09 AM CDT 04/14/2025 8:36 AM CDT Junaid Cifuentes MD PhD LAB BLOOD ORDERABLES Final Result Performing Organization Address [facility] Co de Phone Number GORAN BJW[facility] [phone] [place] [address] * Comprehensive metabolic panel (04/14/2025 8:09 AM CDT) Sodium 143 135 - 145 mmol/L Comment:Testing performed by : [facility], [address], [place] [address] Potassium, pl 3.9 3.3 - 4.9 mmol/L CERNER BJWCH Comment:Testing performed by : [facility], [address] [place] [address] Chloride 104 97 - 110 mmol/L CERNER BJWCH Comment:Testing performed by : [facility], [address] [place] [address] CO2 30 22 - 32 mmol/L CERNER BJWCH Comment:Testing performed by : [facility], [address] [place] [address] Anion gap 9 2 - 15 mmol/L CERNER BJWCH Comment:Testing performed by : [facility], [address], [place] [address] BUN 16 6 - 25 mg/dL CERNER BJWCH Comment:Testing performed by : [facility], [address], [place] [address] Creatinine 0.80 0.80 - 1.30 mg/dL CERNER BJWCH Comment:Testing performed by : [facility], [address], [place] [address] Glucose 136 70 - 199 mg/dL CERNER BJWCH Comment: [...] was last revised 2022. Testing performed by: [facility], [address], [place] [address] Calcium 9.4 8.5 - 10.3 mg/dL CERNER BJWCH Comment:Testing performed by : [facility], [address], [place] [address] Bilirubin, total 0.3 0.1 - 1.2 mg/dL CERNER BJWCH Comment:Testing performed by : [facility], [address], [place] [address] Protein, pl 6.7 6.5 - 8.5 g/dL CERNER BJWCH Comment:Testing performed by : [facility], [address], [place] [address] Albumin 4.3 3.5 - 5.0 g/dL CERNER BJWCH Comment:Testing performed by : [facility], [address], [place] [address] Alk phos 72 40 - 130 Units/L CERNER BJWCH Comment:Testing performed by : [facility], [address], [place] [address] ALT 16 7 - 55 Units/L GORAN HELM Comment:Testing performed by : [facility], [address], [place] [address] AST 23 10 - 50 Units/L GORAN HELM Comment:Testing performed by : [facility], [address], [address], [place] [address] Blood 04/14/2025 8:09 AM CDT 04/14/2025 8:36 AM CDT us Junaid Cifuentes MD PhD LAB BLOOD ORDERABLES Final Result [facility] [address]. Department [place] [address] * NM Bone Imaging Whole Body (04/08/2025 2:31 PM CDT) Anatomical Region Laterality Modality N/A Positron Emissio n Tomography (PET) 04/08/2025 3:41 PM CDT Impressions 04/08/2025 5:00 PM CDT 1. New left glenoid and left iliac lesions, which in the setting of rising PSA are concerning for progressive disease. Additional lesions described above are stable. Dictated by: Sameer Hughes M.D.(R) The radiology attending physician has personally reviewed this study, and had reviewed and/or edited this written report and agrees with it. Electronically signed by: Jose Manuel Osorio M.D. Narrative 04/08/2025 5:00 PM CDT EXAMINATION: BONE SCINTIGRAPHY (WHOLE-BODY) DATE OF STUDY: 04/08/2025 RADIOPHARMACEUTICAL: 22.4 mCi Tc-99m MDP i.v. HISTORY: 69-year-old male with prostate cancer diagnosed in 2009 (Sid 4+3) status post radical prostatectomy, radiation and androgen deprivation therapy. His PSA has been trending up, with a last PSA measured at 34.35 on 03/24/2025, up from 21 on 5/21/25. FINDINGS: Delayed whole-body scintigrams were obtained. Prior nuclear medicine studies used for comparison: Multiple prior bone scans with the most recent from 02/08/2025 Other radiographic comparisons: Same day CT chest abdomen and pelvis with contrast There is new intense abnormal tracer uptake in the left glenoid (with corresponding sclerosis on CT) and subtle new uptake in the region of the left sacroiliac joint corresponding to subtle sclerosis of the posterior left iliac bone. There is stable appearance of osseous metastatic disease in the right frontoparietal skull and the right 7th rib and bilateral 5th ribs. Degenerative pattern of uptake in the bilateral shoulders, elbows, wrists, knees Procedure Note Jose Manuel Osorio MD - 04/08/2025 EXAMINATION: BONE SCINTIGRAPHY (WHOLE-BODY) DATE OF STUDY: 04/08/2025 RADIOPHARMACEUTICAL: 22.4 mCi Tc-99m MDP i.v. HISTORY: 69-year-old male with prostate cancer diagnosed in 2009 ([place] 4+3) status post radical prostatectomy, radiation and androgen deprivation therapy. His PSA has been trending up, with a last PSA measured at 34.35 on 03/24/2025, up from 21 on 02/10/25. FINDINGS: Delayed whole-body scintigrams were obtained. Prior nuclear medicine studies used for comparison: Multiple prior bone scans with the most recent from 02/08/2025 Other radiographic comparisons: Same day CT chest abdomen and pelvis with contrast There is new intense abnormal tracer uptake in the left glenoid (with corresponding sclerosis on CT) and subtle new uptake in the region of the left sacroiliac joint corresponding to subtle sclerosis of the posterior left iliac bone. There is stable appearance of osseous metastatic disease in the right frontoparietal skull and the right 7th rib and bilateral 5th ribs. Degenerative pattern of uptake in the bilateral shoulders, elbows, wrists, knees IMPRESSION: 1. New left glenoid and left iliac lesions, which in the setting of rising PSA are concerning for progressive disease. Additional lesions described above are stable. Dictated by: Sameer Hughes M.D.(R) The radiology attending physician has personally reviewed this study, and had reviewed and/or edited this written report and agrees with it. Electronically signed by: Jose Manuel Osorio M.D. us Junaid Cifuentes MD PhD IMG NM PROCEDURES Fin al Result * CT Chest Abdomen Pelvis W Contrast (04/08/2025 11:59 AM CDT) Anatomical Region Laterality Modality Body N/A Computed Tomogra phy 04/08/2025 2:05 PM CDT Impressions 04/08/2025 2:06 PM CDT 1. Progression of disease with increased enhancing soft tissue in the prostatectomy bed, which continues to invade into the bladder and rectum. 2. Osseous metastatic disease involving the bilateral 5th ribs and left scapula. The extent of disease is better evaluated on prior PSMA PET 03/23/2025. Dictated by: Gurwinder Ibrahim MD The radiology attending physician has personally reviewed this study, and had reviewed and/or edited this written report and agrees with it. Electronically signed by: Renato Cutler M.D. Narrative 04/08/2025 2:06 PM CDT EXAMINATION: Computed tomography of the chest, abdomen and pelvis with intravenous contrast HISTORY: 69-year-old male with prostate cancer. TECHNIQUE: Transaxial computed tomographic images of the chest, abdomen and pelvis were obtained with intravenous contrast according to the standard protocol after the uneventful administration of 100 mL Opti-Ray 350 intravenous contrast. COMPARISON: 03/23/2025, 02/08/2025 FINDINGS: Chest: There is debris within the trachea. There is a unchanged subcentimeter opacity along the right major fissure, likely intrapulmonary lymph node. No suspicious pulmonary nodule. No pulmonary consolidation, pleural effusion, or pneumothorax. The heart size is normal without a pericardial effusion. There is mild coronary artery calcification. The caliber of the thoracic aorta is within normal limits. The caliber of the main pulmonary artery is within normal limits. There is mild calcification of the thoracic aorta and its proximal great branches. There are no enlarged lymph nodes within the chest. Abdomen/Pelvis: There is a small unchanged hypoattenuating lesion at the liver dome, which is too small to characterize. No suspicious hepatic lesions. The main portal vein, splenic vein, and superior mesenteric vein are patent. The gallbladder is normal. There is no intrahepatic or extrahepatic biliary ductal dilatation. Normal pancreas. Tiny calcifications in the spleen, likely old granulomatous disease. Unchanged 1.2 cm left adrenal nodule. Normal right adrenal gland. The kidneys enhance symmetrically without hydronephrosis. There is a small hypoattenuating lesions in the left kidney, probably cysts. There is increase in size of a enhancing mass centered in the prostatectomy bed which invades into the bladder and right ureteral vesicular junction as well as the rectum. For example, at the superior aspect, the mass measures 4.2 cm x 3.1 cm, previously 3.9 cm x 2.9 cm (series 2, image 283). The bladder is thick walled, which is unchanged. There is persistent fat stranding and thickening along the mesorectal fascia and presacral space. The caliber of the small bowel and colon is within normal limits. No bowel obstruction or pneumoperitoneum. The abdominal aorta is normal in caliber. There is moderate calcification of the abdominal aorta and its branches. No enlarged lymph nodes within the abdomen or pelvis. There is a unchanged soft tissue nodule in the right anterior abdominal wall. There is increased sclerosis of the left 5th lateral rib and left scapula. The sclerosis involving the right posterior 5th rib is similar. 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 Procedure Note Renato Cutler MD - 04/08/2025 EXAMINATION: Computed tomography of the chest, abdomen and pelvis with intravenous contrast HISTORY: 69-year-old male with prostate cancer. TECHNIQUE: Transaxial computed tomographic images of the chest, abdomen and pelvis were obtained with intravenous contrast according to the standard protocol after the uneventful administration of 100 mL Opti-Ray 350 intravenous contrast. COMPARISON: 03/23/2025, 02/08/2025 FINDINGS: Chest: There is debris within the trachea. There is a unchanged subcentimeter opacity along the right major fissure, likely intrapulmonary lymph node. No suspicious pulmonary nodule. No pulmonary consolidation, pleural effusion, or pneumothorax. The heart size is normal without a pericardial effusion. There is mild coronary artery calcification. The caliber of the thoracic aorta is within normal limits. The caliber of the main pulmonary artery is within normal limits. There is mild calcification of the thoracic aorta and its proximal great branches. There are no enlarged lymph nodes within the chest. Abdomen/Pelvis: There is a small unchanged hypoattenuating lesion at the liver dome, which is too small to characterize. No suspicious hepatic lesions. The main portal vein, splenic vein, and superior mesenteric vein are patent. The gallbladder is normal. There is no intrahepatic or extrahepatic biliary ductal dilatation. Normal pancreas. Tiny calcifications in the spleen, likely old granulomatous disease. Unchanged 1.2 cm left adrenal nodule. Normal right adrenal gland. The kidneys enhance symmetrically without hydronephrosis. There is a small hypoattenuating lesions in the left kidney, probably cysts. There is increase in size of a enhancing mass centered in the prostatectomy bed which invades into the bladder and right ureteral vesicular junction as well as the rectum. For example, at the superior aspect, the mass measures 4.2 cm x 3.1 cm, previously 3.9 cm x 2.9 cm (series 2, image 283). The bladder is thick walled, which is unchanged. There is persistent fat stranding and thickening along the mesorectal fascia and presacral space. The caliber of the small bowel and colon is within normal limits. No bowel obstruction or pneumoperitoneum. The abdominal aorta is normal in caliber. There is moderate calcification of the abdominal aorta and its branches. No enlarged lymph nodes within the abdomen or pelvis. There is a unchanged soft tissue nodule in the right anterior abdominal wall. There is increased sclerosis of the left 5th lateral rib and left scapula. The sclerosis involving the right posterior 5th rib is similar. 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 IMPRESSION: 1. Progression of disease with increased enhancing soft tissue in the prostatectomy bed, which continues to invade into the bladder and rectum. 2. Osseous metastatic disease involving the bilateral 5th ribs and left scapula. The extent of disease is better evaluated on prior PSMA PET 03/23/2025. Dictated by: Gurwinder Ibrahim MD The radiology attending physician has personally reviewed this study, and had reviewed and/or edited this written report and agrees with it. Electronically signed by: Renato Cutler M.D. Junaid Cifuentes MD PhD IMG CT PROCEDURES Fin al Result * (ABNORMAL) Urinalysis reflex to microscopic and culture Urine (03/24/2025 7:50 AM CDT) Color, ur Yellow Yellow Comment:Testing performed by : [facility], [address], [place] [address] Clarity, ur Clear Clear CERNER BJWCH Comment:Testing performed by : [facility], [address], [place] [address] Specific gravity, ur >1.030(H) 1.003 - 1.030 CERNER BJWCH Comment:Testing performed by : [facility], [address], [place] [address] pH, urine 5.5 CERNER BJWCH Comment: Interpretive Data U rine pH is affected by diet, medications, systemic acid-base disturbances, and renal tubular function. pH may affect urinary stone formation. For example, urine pH below 6.0 may help reduce the tendency for calcium phosphate stones and pH greater than 6.0 may reduce the tendency for uric acid stone formation. Source: [place] [employer] Current Interpretive Data was last revised on 2017 Testing performed by: [facility], [address], [place] [address] Protein, ur ql 1+(A) Negative CERNER BJWCH Comment:Testing performed by : [facility], [address], [place] [address] Glucose, ur ql Negative Negative CERNER BJWCH Comment:Testing performed by : [facility], [address], [place] [address] Ketones, ur Negative Negative CERNER BJWCH Comment:Testing performed by : [facility], [address], [place] [address] Bilirubin, ur Negative Negative CERNER BJWCH Comment:Testing performed by : [facility], [address], [place] [address] Blood, ur Negative Negative CERNER BJWCH Comment:Testing performed by : [facility], [address], [place] [address] Urobilinogen, ur <2.0 <2.0 mg/dL CERNER BJWCH Comment:Testing performed by : [facility], [address], [place] [address] Nitrite, ur Negative Negative CERNER BJWCH Comment:Testing performed by : [facility], [address], [place] [address] Leukocyte esterase, ur Negative Negative GORAN HELM Comment:Testing performed by : [facility], [address], [place] [address] UA reflex comment Reflex to microscopic UA will be performed. GORAN RASHEEDCH Comment:Testing performed by : [facility], [address], [place] [address] Urine 03/24/2025 7:50 AM CDT 03/24/2025 8:20 AM CDT Gladis Savage NP LAB MICROBIOLOGY - [facility] ORDERABLES Final Result GORAN HELM [address] Department [place] [address] * (ABNORMAL) Urinalysis, microscopic only (03/24/2025 7:50 AM CDT) WBC, ur 0-5 0 - 5 /HPF Comment:Testing performed by : [facility], [address], [place] [address] RBC, ur 6-10(A) 0 - 2 /HPF GORAN RASHEEDCH Comment:Testing performed by : [facility], [address], [place] [address] Epithelial cells, squamous, ur 1-5 0 - 5 /HPF GORAN BJWCH Comment:Testing performed by : [facility], [address], [place] [address] Mucous, ur Present(A) GORAN BJWCH Comment:Testing performed by : [facility], [address], [place] [address] Calcium oxalate crystals, ur 2+(A) GORAN BJWCH Comment:Testing performed by : [facility], [address], [place] [address] Culture Reflex Comment Reflex conditions for urine culture (WBC >10) not met. GORAN BJWCH Comment:Testing performed by : [facility], [address] [place] [address] Urine 03/24/2025 7:50 AM CDT 03/24/2025 8:20 AM CDT Gladis Tracey Savage FURNITURE INSPECTOR LAB URINE ORDERABLES Final Result Performing Organization Address [facility] de Phone Number GORAN RASHEEDCH [address] [place] [address] * eGFR (03/24/2025 7:45 AM CDT) eGFR >90 >=60 mL/min/1. 73 [...] was last reviewed 2021. Testing performed by: [facility], [address], [place] [address] Blood 03/24/2025 7:45 AM CDT 03/24/2025 8:18 AM CDT [facility] FURNITURE INSPECTOR LAB BLOOD ORDERABLES Final Result Performing Organization Address [facility] Co de Phone Number GORAN YOUSSEFWCH [phone] [place] [address] * (ABNORMAL) Differential, auto (03/24/2025 7:45 AM CDT) Neutrophil abs 2.44 1.50 - 6.50 K/cumm Comment:Testing performed by : [facility], [facility], [address] [place] [address] Imm gran abs 0.01 0.00 - 0.10 K/cumm CERNER BJWCH Comment:Testing performed by : [facility], [facility], [address] [place] [address] Lymphocyte abs 0.55(L) 0.80 - 3.30 K/cumm CERNER BJWCH Comment:Testing performed by : [facility], [facility], [address] [place] [address] Monocyte abs 0.33 0.20 - 0.80 K/cumm CERNER BJWCH Comment:Testing performed by : [place] [address], [address] [place] [address] Eosinophil abs 0.03 0.00 - 0.50 K/cumm CERNER BJWCH Comment:Testing performed by : [facility], [facility], [address] [place] [address] Basophil abs 0.02 0.00 - 0.10 K/cumm CERNER BJWCH Comment:Testing performed by : [facility], [address] [place] [address] Neutrophil pct 72.1 % CERNER BJWCH Comment: Interpretive Data Percent cell count reference ranges are not reported, since discordance with absolute values may lead to misinterpretation of CBC data. Current Interpretive Data was last revised on 2017. Testing performed by: [facility], [address] [place] [address] Imm gran pct 0.3 % CERNER BJWCH Comment: Interpretive Data Percent cell count reference ranges are not reported, since discordance with absolute values may lead to misinterpretation of CBC data. Current Interpretive Data was last revised on 2017. Testing performed by: [facility], [address] [place] [address] Lymphocyte pct 16.3 % GORAN HELM Comment: Interpretive Data Percent cell count reference ranges are not reported, since discordance with absolute values may lead to misinterpretation of CBC data. Current Interpretive Data was last revised on 2017. Testing performed by: [facility], [facility], [address] [place] [address] Monocyte pct 9.8 % GORAN HELM Comment: Interpretive Data Percent cell count reference ranges are not reported, since discordance with absolute values may lead to misinterpretation of CBC data. Current Interpretive Data was last revised on 2017. Testing performed by: [facility], [facility], [address] [place] [address] Eosinophil pct 0.9 % GORAN HELM Comment: Interpretive Data Percent cell count reference ranges are not reported, since discordance with absolute values may lead to misinterpretation of CBC data. Current Interpretive Data was last revised on 2017. Testing performed by: [facility], [facility], [address] [place] [address] Basophil pct 0.6 % GORAN HELM Comment: Interpretive Data Percent cell count reference ranges are not reported, since discordance with absolute values may lead to misinterpretation of CBC data. Current Interpretive Data was last revised on 2017. Testing performed by: [facility], [facility], [address] [place] [address] Blood 03/24/2025 7:45 AM CDT 03/24/2025 7:45 AM CDT Gladis Savage NP LAB BLOOD ORDERABLES Final Result GORAN BJWCH [address] [address] [facility]. Department [place] [address] * (ABNORMAL) CBC with auto differential (03/24/2025 7:45 AM CDT) WBC 3.38(L) 3.80 - 9.90 K/cumm Comment:Testing performed by : [facility], [facility], [address], [place] [address] Hgb 13.0 13.0 - 17.5 g/dL CERNER BJWCH Comment:Testing performed by : [facility], [address], [place] [address] Hct 39.4 38.9 - 50.3 % CERNER BJWCH Comment:Testing performed by : [place] [address], [address], [place] [address] Plt 165 150 - 400 K/cumm CERNER BJWCH Comment:Testing performed by : [place] [address], [address] [place] [address] MPV 11.4 9.1 - 12.3 fL CERNER BJWCH Comment:Testing performed by : [place] [address], [address] [place] [address] RBC 4.45 4.30 - 5.80 M/cumm CERNER BJWCH Comment:Testing performed by : [place] [address], [address], [place] [address] MCV 88.5 81.3 - 96.4 fL CERNER BJWCH Comment:Testing performed by : [place] [address], [address], [place] [address] MCH 29.2 27.1 - 33.3 pg CERNER BJWCH Comment:Testing performed by : [facility], [address], [place] [address] MCHC 33.0 32.3 - 35.7 g/dL CERNER BJWCH Comment:Testing performed by : [place] [address], [address], [place] [address] RDW CV 12.5 11.1 - 14.9 % CERNER BJWCH Comment:Testing performed by : [place] [address], [address], [place] [address] RDW SD 41.1 35.7 - 48.1 fL GORAN HELM Comment:Testing performed by : [facility], [facility], [address], [place] [address] ANC Prelim 2.44 1.50 - 6.50 K/cumm GORAN HELM Comment: Interpretive Data The rapid ANC is a preliminary automated count and may vary from the final ANC (Neut Abs) reported in the WBC differential that follows. Current interpretive data was last revised 2024. Testing performed by: [facility], [facility], [address] [place] [address] Blood 03/24/2025 7:45 AM CDT 03/24/2025 7:45 AM CDT [facility] LAB BLOOD ORDERABLES Final Result Performing Organization Address [facility] Co de Phone Number [facility] [address] [facility]. [facility] [place] [address] * Uric acid (03/24/2025 7:45 AM CDT) Uric acid 3.5 3.0 - 8.0 mg/dL Comment:Testing performed by : [facility], [address] [place] [address] Blood 03/24/2025 7:45 AM CDT 03/24/2025 8:18 AM CDT [facility] LAB BLOOD ORDERABLES Edited Result - Final Performing Organization Address City/[facility]/ZIP Co de Phone Number [facility] [address] [facility]. [facility] [place] [address] * Triglycerides (03/24/2025 7:45 AM CDT) Triglycerides 108 <=149 mg/dL Comment: Interpretive Data Ages < [...] last revised on 2018. Testing performed by: [facility], [address] [place] [address] Blood 03/24/2025 7:45 AM CDT 03/24/2025 8:18 AM CDT Gladis Tracey [facility] LAB BLOOD ORDERABLES Edited Result - Final Performing Organization Address City/[facility] de Phone Number GORAN BJWCH [address] Department [place] [address] * (ABNORMAL) PSA diagnostic (03/24/2025 7:45 AM CDT) PSA-Total 34.35(H) <=5.40 ng/mL Comment: Interpretive Data AGE SEX [...] data last revised 22. Testing performed by: [facility], [address] [place] [address] Blood 03/24/2025 7:45 AM CDT 03/24/2025 8:18 AM CDT Gladis Alexy [facility] LAB BLOOD ORDERABLES Final Result Performing Organization Address [facility] de Phone Number GORAN YOUSSEFCH [phone] [facility] [place] [address] * Phosphorus (03/24/2025 7:45 AM CDT) Pathologist [facility] Phosphorus, pl 3.2 2.3 - 4.5 mg/dL Comment:Testing performed by : [facility], [address] [place] [address] Blood 03/24/2025 7:45 AM CDT 03/24/2025 8:18 AM CDT Gladis Savage NP LAB BLOOD ORDERABLES Edited Result - Final Performing Organization Address [facility] de Phone Number GORAN YOUSSEFWCH [phone] [facility] [place] [address] * Lactate dehydrogenase (LD) (03/24/2025 7:45 AM CDT) [facility] Lactate dehydrogenase (LDH) 128 100 - 250 Units/L Comment:Testing performed by : [facility], [address] [place] [address] Blood 03/24/2025 7:45 AM CDT 03/24/2025 8:18 AM CDT Gladis Savage FURNITURE INSPECTOR LAB BLOOD ORDERABLES Edited Result - Final Performing Organization Address [facility] Co de Phone Number GORAN BJWCH [phone] [facility] [place] [address] * Gamma GT (03/24/2025 7:45 AM CDT) [facility] GGT 17 10 - 50 Units/L Comment:Testing performed by : [facility], [address] [place] [address] Blood 03/24/2025 7:45 AM CDT 03/24/2025 8:18 AM CDT [facility] LAB BLOOD ORDERABLES Edited Result - Final Performing Organization Address City/[facility]/ZIP Co de Phone Number GORAN RASHEEDCH [phone] [facility] [place] [address] * (ABNORMAL) Creatine kinase (CK), total (03/24/2025 7:45 AM CDT) CK 22(L) 40 - 300 Units/L Comment:Testing performed by : [facility], [address] [place] [address] Blood 03/24/2025 7:45 AM CDT 03/24/2025 8:18 AM CDT [facility] LAB BLOOD ORDERABLES Edited Result - Final Performing Organization Address [facility] Co de Phone Number GORAN YOUSSEFWCH [address] Department [place] [address] * (ABNORMAL) Comprehensive metabolic panel (03/24/2025 7:45 AM CDT) Pathologist [facility] Sodium 143 135 - 145 mmol/L Comment:Testing performed by : [facility], [address], [place] [address] Potassium, pl 3.9 3.3 - 4.9 mmol/L CERNER BJWCH Comment:Testing performed by : [facility], [address], [place] [address] Chloride 105 97 - 110 mmol/L CERNER BJWCH Comment:Testing performed by : [facility], [address] [place] [address] CO2 26 22 - 32 mmol/L CERNER BJWCH Comment:Testing performed by : [facility], [address] [place] [address] Anion gap 12 2 - 15 mmol/L CERNER BJWCH Comment:Testing performed by : [facility], [address], [place] [address] BUN 14 6 - 25 mg/dL CERNER BJWCH Comment:Testing performed by : [facility], [address], [place] [address] Creatinine 0.76(L) 0.80 - 1.30 mg/dL CERNER BJWCH Comment:Testing performed by : [facility], [address], [place] [address] Glucose 145 70 - 199 mg/dL CERNER BJWCH Comment: [...] was last revised 2022. Testing performed by: [facility], [address], [place] [address] Calcium 9.5 8.5 - 10.3 mg/dL CERNER BJWCH Comment:Testing performed by : [facility], [address], [place] [address] Bilirubin, total 0.3 0.1 - 1.2 mg/dL CERNER BJWCH Comment:Testing performed by : [facility], [address], [place] [address] Protein, pl 6.6 6.5 - 8.5 g/dL CERNER BJWCH Comment:Testing performed by : [facility], [address], [place] [address] Albumin 4.1 3.5 - 5.0 g/dL CERNER BJWCH Comment:Testing performed by : [facility], [address], [place] [address] Alk phos 67 40 - 130 Units/L CERNER BJWCH Comment:Testing performed by : [facility], [address], [place] [address] ALT 15 7 - 55 Units/L CERNER BJWCH Comment:Testing performed by : [facility], [address] [place] [address] AST 20 10 - 50 Units/L GORAN HELM Comment:Testing performed by : [facility], [address] [place] [address] Blood 03/24/2025 7:45 AM CDT 03/24/2025 8:18 AM CDT Gladis Savage NP LAB BLOOD ORDERABLES Edited Result - Final GORAN HELM [address] Department [place] [address] * PET/CT Prostate Cancer PSMA Skull to Thigh (03/23/2025 1:26 PM CDT) Anatomical Region Laterality Modality N/A Positron Emissio n Tomography (PET) 03/23/2025 3:17 PM CDT Impressions 03/23/2025 3:17 PM CDT 1. Osseous disease progression, with increase in size and/or tracer-avidity of left scapular glenoid and left lateral 5th rib lesions. There is also a new right frontal calvarial lesion. Other osseous lesions are not significantly changed. 2. Increase in extent of only mildly PSMA-overexpressing infiltrative soft tissue lesion in the prostatectomy bed with invasion of the bladder and anus/rectum. Anatomic changes in this lesion are better appreciated on serial CT examinations dating back to 09/30/2024. 3. Unchanged tracer-avid bilateral inguinal lymph nodes. Electronically signed by: Selwyn Macedo M.D. Narrative 03/23/2025 3:17 PM CDT EXAMINATION: PSMA-PET/CT DATE OF STUDY: 03/23/2025 SCANNER: RADIOPHARMACEUTICAL: 9.3 mCi F-18 DCFPyL (Piflufolastat) i.v. Injection site: Right antecubital HISTORY: Prostate cancer diagnosed in 2009 treated with prostatectomy, radiation, and androgen deprivation therapy. The patient is being treated on a clinical trial. Assess treatment response. Subsequent treatment strategy. TECHNIQUE: After intravenous administration of tracer, noncontrast CT images were obtained for attenuation correction and for fusion with emission PET images to allow for anatomical localization of PET findings. Emission PET images were then obtained. The study was interpreted on the [employer] workstation. The total scanned area was skull vertex to proximal thighs. Images of the body were obtained starting 60 minutes after injection of tracer. REFERENCE TISSUE MAXIMUM SUVs: Parotid gland 20.6; Liver 6.7; Blood pool 1.9 Focal PSMA tracer uptake is graded as follows: * Faint: above background to blood pool * Mild: above blood pool to liver * Moderate: above liver to salivary glands * Intense: similar to or above salivary glands COMPARISON: Multiple prior PSMA PET/CTs, most recently on 02/01/2025 FINDINGS: Prostate/Prostate bed: Assuming change in tracer-avid focus along the right anterolateral aspect of the anal canal. Increased extent of only mildly tracer-avid infiltrative soft tissue in the cystectomy bed extending superiorly into the bladder trigone and posteriorly to the anus/rectum; this change in extent is better appreciated on comparison of CT from 02/08/[address] such as 09/30/2024. Regional lymph nodes: No abnormal tracer uptake seen. Extra-pelvic lymph nodes: No significant change in size of several tracer-avid bilateral inguinal lymph nodes. Bone: Increase in size and tracer-avidity of previously noted new sclerotic bone lesions in the left lateral 5th rib and left scapular glenoid. New right frontal calvaria focus of mild tracer-avidity without clear CT correlate. Other osseous lesions are unchanged. Visceral: No abnormal tracer uptake seen. Focus of activity previously seen in the penis is no longer appreciated and may represent excreted tracer in the urethra. Additional CT findings: Bilateral gynecomastia. Sequela granulomatous disease in the chest. Coronary artery calcifications. Calcified granulomata in the spleen. Unchanged small left adrenal nodule, likely a benign adenoma. Atherosclerosis of the aorta and its branches. Unchanged presacral soft tissue thickening and stranding. Anterior cervical instrumented fusion. Procedure Note Selwyn Macedo MD - 03/23/2025 EXAMINATION: PSMA-PET/CT DATE OF STUDY: 03/23/2025 SCANNER: RADIOPHARMACEUTICAL: 9.3 mCi F-18 DCFPyL (Piflufolastat) i.v. Injection site: Right antecubital HISTORY: Prostate cancer diagnosed in 2009 treated with prostatectomy, radiation, and androgen deprivation therapy. The patient is being treated on a clinical trial. Assess treatment response. Subsequent treatment strategy. TECHNIQUE: After intravenous administration of tracer, noncontrast CT images were obtained for attenuation correction and for fusion with emission PET images to allow for anatomical localization of PET findings. Emission PET images were then obtained. The study was interpreted on the [employer] workstation. The total scanned area was skull vertex to proximal thighs. Images of the body were obtained starting 60 minutes after injection of tracer. REFERENCE TISSUE MAXIMUM SUVs: Parotid gland 20.6; Liver 6.7; Blood pool 1.9 Focal PSMA tracer uptake is graded as follows: * Faint: above background to blood pool * Mild: above blood pool to liver * Moderate: above liver to salivary glands * Intense: similar to or above salivary glands COMPARISON: Multiple prior PSMA PET/CTs, most recently on 02/01/2025 FINDINGS: Prostate/Prostate bed: Assuming change in tracer-avid focus along the right anterolateral aspect of the anal canal. Increased extent of only mildly tracer-avid infiltrative soft tissue in the cystectomy bed extending superiorly into the bladder trigone and posteriorly to the anus/rectum; this change in extent is better appreciated on comparison of CT from 02/08/[address] such as 09/30/2024. Regional lymph nodes: No abnormal tracer uptake seen. Extra-pelvic lymph nodes: No significant change in size of several tracer-avid bilateral inguinal lymph nodes. Bone: Increase in size and tracer-avidity of previously noted new sclerotic bone lesions in the left lateral 5th rib and left scapular glenoid. New right frontal calvaria focus of mild tracer-avidity without clear CT correlate. Other osseous lesions are unchanged. Visceral: No abnormal tracer uptake seen. Focus of activity previously seen in the penis is no longer appreciated and may represent excreted tracer in the urethra. Additional CT findings: Bilateral gynecomastia. Sequela granulomatous disease in the chest. Coronary artery calcifications. Calcified granulomata in the spleen. Unchanged small left adrenal nodule, likely a benign adenoma. Atherosclerosis of the aorta and its branches. Unchanged presacral soft tissue thickening and stranding. Anterior cervical instrumented fusion. IMPRESSION: 1. Osseous disease progression, with increase in size and/or tracer-avidity of left scapular glenoid and left lateral 5th rib lesions. There is also a new right frontal calvarial lesion. Other osseous lesions are not significantly changed. 2. Increase in extent of only mildly PSMA-overexpressing infiltrative soft tissue lesion in the prostatectomy bed with invasion of the bladder and anus/rectum. Anatomic changes in this lesion are better appreciated on serial CT examinations dating back to 09/30/2024. 3. Unchanged tracer-avid bilateral inguinal lymph nodes. Electronically signed by: Selwyn Macedo M.D. Gladis Savage NP IMG PET PROCEDURES Fi nal Result * eGFR (03/03/2025 10:05 AM CDT) eGFR >90 >=60 mL/min/1. 73 [...] was last reviewed 2021. Testing performed by: [facility], [address] [place] [address] Blood 03/03/2025 10:0 5 AM CDT 03/03/2025 10:25 AM CDT Gladis Savage NP LAB BLOOD ORDERABLES Final Result [facility] [address] [place] [address] * (ABNORMAL) Differential, auto (03/03/2025 10:05 AM CDT) Neutrophil abs 4.85 1.50 - 6.50 K/cumm Comment:Testing performed by : [place] [address], [place] [address] Imm gran abs 0.02 0.00 - 0.10 K/cumm CERNER BJWCH Comment:Testing performed by : [place] [address], [address], [place] [address] Lymphocyte abs 0.52(L) 0.80 - 3.30 K/cumm CERNER BJWCH Comment:Testing performed by : [place] [address], [address] [place] [address] Monocyte abs 0.45 0.20 - 0.80 K/cumm CERNER BJWCH Comment:Testing performed by : [place] [address], [address], [place] [address] Eosinophil abs 0.03 0.00 - 0.50 K/cumm CERNER BJWCH Comment:Testing performed by : [place] [address], [address], [place] [address] Basophil abs 0.03 0.00 - 0.10 K/cumm CERNER BJWCH Comment:Testing performed by : [place] [address] [place] [address] Neutrophil pct 82.3 % CERNER BJWCH Comment: Interpretive Data Percent cell count reference ranges are not reported, since discordance with absolute values may lead to misinterpretation of CBC data. Current Interpretive Data was last revised on 2017. Testing performed by: [place] [address], [address] [place] [address] Imm gran pct 0.3 % CERNER BJWCH Comment: Interpretive Data Percent cell count reference ranges are not reported, since discordance with absolute values may lead to misinterpretation of CBC data. Current Interpretive Data was last revised on 2017. Testing performed by: [facility], [facility], [address] [place] [address] Lymphocyte pct 8.8 % CERNICHOLE HELM Comment: Interpretive Data Percent cell count reference ranges are not reported, since discordance with absolute values may lead to misinterpretation of CBC data. Current Interpretive Data was last revised on 2017. Testing performed by: [facility], [facility], [address] [place] [address] Monocyte pct 7.6 % CERNER MIKAELWCH Comment: Interpretive Data Percent cell count reference ranges are not reported, since discordance with absolute values may lead to misinterpretation of CBC data. Current Interpretive Data was last revised on 2017. Testing performed by: [facility], [facility], [address] [place] [address] Eosinophil pct 0.5 % CERNICHOLE HELM Comment: Interpretive Data Percent cell count reference ranges are not reported, since discordance with absolute values may lead to misinterpretation of CBC data. Current Interpretive Data was last revised on 2017. Testing performed by: [facility], [facility], [address] [place] [address] Basophil pct 0.5 % CERNICHOLE HELM Comment: Interpretive Data Percent cell count reference ranges are not reported, since discordance with absolute values may lead to misinterpretation of CBC data. Current Interpretive Data was last revised on 2017. Testing performed by: [facility], [facility], [address] [place] [address] Blood 03/03/2025 10:0 5 AM CDT 03/03/2025 10:10 AM CDT Gladis Savage NP LAB BLOOD ORDERABLES Final Result [facility] [address] [address] [facility]. Department [place] [address] * CBC with auto differential (03/03/2025 10:05 AM CDT) WBC 5.90 3.80 - 9.90 K/cumm Comment:Testing performed by : [facility], [facility], [address], [place] [address] Hgb 13.3 13.0 - 17.5 g/dL CERNER BJWCH Comment:Testing performed by : [facility], [address], [place] [address] Hct 40.5 38.9 - 50.3 % CERNER BJWCH Comment:Testing performed by : [place] [address], [address], [place] [address] Plt 192 150 - 400 K/cumm CERNER BJWCH Comment:Testing performed by : [facility], [address], [place] [address] MPV 10.4 9.1 - 12.3 fL CERNER BJWCH Comment:Testing performed by : [place] [address], [address], [place] [address] RBC 4.60 4.30 - 5.80 M/cumm CERNER BJWCH Comment:Testing performed by : [place] [address], [address], [place] [address] MCV 88.0 81.3 - 96.4 fL CERNER BJWCH Comment:Testing performed by : [place] [address], [address], [place] [address] MCH 28.9 27.1 - 33.3 pg CERNER BJWCH Comment:Testing performed by : [facility], [address], [place] [address] MCHC 32.8 32.3 - 35.7 g/dL CERNER BJWCH Comment:Testing performed by : [facility], [address], [place] [address] RDW CV 12.3 11.1 - 14.9 % CERNER BJWCH Comment:Testing performed by : [place] [address], [address] [place] [address] RDW SD 39.8 35.7 - 48.1 fL GORAN HELM Comment:Testing performed by : [facility], [facility], [address] [place] [address] ANC Prelim 4.85 1.50 - 6.50 K/cumm GORAN HELM Comment: Interpretive Data The rapid ANC is a preliminary automated count and may vary from the final ANC (Neut Abs) reported in the WBC differential that follows. Current interpretive data was last revised 2024. Testing performed by: [facility], [facility], [address] [place] [address] Blood 03/03/2025 10:0 5 AM CDT 03/03/2025 10:10 AM CDT [facility] LAB BLOOD ORDERABLES Final Result Performing Organization Address City/[facility]/ZIP Co de Phone Number [facility] [address] [facility]. [facility] [place] [address] * Uric acid (03/03/2025 10:05 AM CDT) Uric acid 3.8 3.0 - 8.0 mg/dL Comment:Testing performed by : [facility], [address] [place] [address] Blood 03/03/2025 10:0 5 AM CDT 03/03/2025 10:25 AM CDT [facility] [employer] LAB BLOOD ORDERABLES Final Result Performing Organization Address City/[facility]/ZIP Co de Phone Number [facility] [address] [facility]. [facility] [place] [address] * (ABNORMAL) Triglycerides (03/03/2025 10:05 AM CDT) Triglycerides 164(H) <=149 mg/dL Comment: Interpretive Data Ages < [...] last revised on 2018. Testing performed by: [facility], [address] [place] [address] Blood 03/03/2025 10:0 5 AM CDT 03/03/2025 10:25 AM CDT Gladis Savage NP LAB BLOOD ORDERABLES Final Result [facility] [address] Department [place] [address] * (ABNORMAL) PSA diagnostic (03/03/2025 10:05 AM CDT) PSA-Total 26.89(H) <=5.40 ng/mL Comment: Interpretive Data AGE SEX [...] data last revised 22. Testing performed by: [facility], [address] [place] [address] Blood 03/03/2025 10:0 5 AM CDT 03/03/2025 10:25 AM CDT [facility] LAB BLOOD ORDERABLES Final Result Performing Organization Address [facility] de Phone Number [facility]AN [facility]SSEF[facility] [address] [place] [phone] * Phosphorus (03/03/2025 10:05 AM CDT) Pathologist [facility] Phosphorus, pl 3.9 2.3 - 4.5 mg/dL Comment:Testing performed by : [facility], [address] [place] [address] Blood 03/03/2025 10:0 5 AM CDT 03/03/2025 10:25 AM CDT [facility] LAB BLOOD ORDERABLES Final Result Performing Organization Address [facility] de Phone Number [facility] [address] [place] [address] * Lactate dehydrogenase (LD) (03/03/2025 10:05 AM CDT) [facility] Lactate dehydrogenase (LDH) 143 100 - 250 Units/L Comment:Testing performed by : [facility], [address] [address] [facility] [place] [address] Blood 03/03/2025 10:0 5 AM CDT 03/03/2025 10:25 AM CDT [facility] LAB BLOOD ORDERABLES Final Result Performing Organization Address [facility] de Phone Number [facility] [address] [place] [address] * Gamma GT (03/03/2025 10:05 AM CDT) [facility] GGT 19 10 - 50 Units/L Comment:Testing performed by : [facility], [address] [place] [address] Blood 03/03/2025 10:0 5 AM CDT 03/03/2025 10:25 AM CDT [facility] LAB BLOOD ORDERABLES Final Result Performing Organization Address City/[facility] Co de Phone Number GORAN RASHEEDCH [phone] [address]. [facility] [place] [address] * (ABNORMAL) Creatine kinase (CK), total (03/03/2025 10:05 AM CDT) Pathologist [facility] CK 22(L) 40 - 300 Units/L Comment:Testing performed by : [facility], [address] [place] [address] Blood 03/03/2025 10:0 5 AM CDT 03/03/2025 10:25 AM CDT [facility] LAB BLOOD ORDERABLES Final Result Performing Organization Address [facility] de Phone Number GORAN RASHEEDCH [address] [address]. [facility] [place] [address] * Comprehensive metabolic panel (03/03/2025 10:05 AM CDT) Pathologist [facility] Sodium 144 135 - 145 mmol/L Comment:Testing performed by : [facility], [address] [place] [address] Potassium, pl 4.3 3.3 - 4.9 mmol/L CERNER BJWCH Comment:Testing performed by : [facility], [address], [place] [address] Chloride 105 97 - 110 mmol/L CERNER BJWCH Comment:Testing performed by : [facility], [address], [place] [address] CO2 30 22 - 32 mmol/L CERNER BJWCH Comment:Testing performed by : [facility], [address], [place] [address] Anion gap 9 2 - 15 mmol/L CERNER BJWCH Comment:Testing performed by : [facility], [address], [place] [address] BUN 15 6 - 25 mg/dL CERNER BJWCH Comment:Testing performed by : [facility], [address], [place] [address] Creatinine 0.86 0.80 - 1.30 mg/dL CERNER BJWCH Comment:Testing performed by : [facility], [address], [place] [address] Glucose 131 70 - 199 mg/dL CERNER BJWCH Comment: [...] was last revised 2022. Testing performed by: [facility], [address], [place] [address] Calcium 9.7 8.5 - 10.3 mg/dL CERNER BJWCH Comment:Testing performed by : [facility], [address], [place] [address] Bilirubin, total 0.3 0.1 - 1.2 mg/dL CERNER BJWCH Comment:Testing performed by : [facility], [address], [place] [address] Protein, pl 6.7 6.5 - 8.5 g/dL CERNER BJWCH Comment:Testing performed by : [facility], [address], [place] [address] Albumin 4.2 3.5 - 5.0 g/dL CERNER BJWCH Comment:Testing performed by : [facility], [address], [place] [address] Alk phos 72 40 - 130 Units/L CERNER BJWCH Comment:Testing performed by : [facility], [address], [place] [address] ALT 17 7 - 55 Units/L GORAN HELM Comment:Testing performed by : [facility], [address] [place] [address] AST 24 10 - 50 Units/L GORAN HELM Comment:Testing performed by : [facility], [address] [address] [place] [address] Blood 03/03/2025 10:0 5 AM CDT 03/03/2025 10:25 AM CDT Gladis Savage NP LAB BLOOD ORDERABLES Final Result [facility] [address] [address]. 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
--- NOTE | 2025-06-03 19:32 | ECG_ITS ---
Test Date: 2025-06-03 20:18:04 Measurements Intervals [place] Rate: 136 P: 259 MI: 146 QRS: 116 QRSD: 144 T: 83 QT: 318 QTc: 480 Interpretive Statements SINUS TACHYCARDIA; CAN NOT R/O ATRIAL TACHYCARDIA RIGHT BUNDLE BRANCH BLOCK [120+ ms QRS DURATION, UPRIGHT V1, 40+ ms S IN I/aVL/V4/V5/V6] LEFT POSTERIOR FASCICULAR BLOCK [QRS AXIS > 109, INFERIOR Q] Compared to ECG 02/23/2025 18:00:24 Ventricular premature complex(es) no longer present First degree AV block no longer present Electronically Signed On 06-04-2025 15:19:36 CDT by Willie Walters M.D.
[2025-06-03] MEDS: ACETAMINOPHEN 325 MG TABLET 650 MG PO (19:34)
[2025-06-03] MEDS: SODIUM CHLORIDE 0.9% IV 1,000 ML 999 ML IV CONT ×2 (19:57→23:26)
[2025-06-03 20:02] LABS: Hematocrit 38.3 % (37.0-46.0); Hemoglobin 12.7 g/dL (12.4-15.3); Immature Platelet Fraction Pct 2.9 % (1.0-7.0); Mean Corpuscular HGB Conc 33.2 g/dL (32-36); Mean Corpuscular Hemoglobin 29.1 pg (27.0-31.0); Mean Corpuscular Volume 87.8 fL (78.0-102.0); Platelet Count Result 128 K/mm3 (150-420); Red Blood Count 4.36 M/mm3 (4.70-6.10)
[2025-06-03 20:10] LABS: White Blood Count 0.5 K/mm3 (4.8-10.8)
[2025-06-03 20:12] LABS: Alanine Aminotransferase 21 U/L (6-50); Albumin Level 4.2 g/dL (3.5-5.1); Alkaline Phosphatase 51 U/L (38-126); Anion Gap 9 mmol/L (4-12); Aspartate Amino Transferase 26 U/L (17-59); Bilirubin,Total 1.6 mg/dL (0.2-1.3); Blood Urea Nitrogen 16 mg/dL (9-20); Calcium 9.6 mg/dL (8.4-10.2); Carbon Dioxide 27 mmol/L (22-30); Chloride 103 mmol/L (98-107); Estimated CRCL calculation 74 ml/min; Estimated Glomerular Filt Rate > 60; Glucose 121 mg/dL (65-110); Osmolality Calculated 290 mOsm/kg (285-295); Potassium 4.1 mmol/L (3.4-5.0); Sodium 139 mmol/L (137-145); Total Protein 6.7 g/dL (6.3-8.2)
[2025-06-03 20:15] LABS: INR 1.2; Partial Thromboplastin Time 30.9 Sec (23.9-30.70); Prothrombin Time 12.6 Seconds (9.50-12.1)
[2025-06-03 20:27] LABS: Band Neutrophils Percent 0 % (0-6); Monocytes Absolute Manual 0.10 K/mm3 (0.1-0.90); Monocytes Percent Manual 20 % (3-9); Neutrophils Absolute Manual 0.22 K/mm3 (1.3-6.7); Neutrophils Percent Manual 45 % (46-73)
[2025-06-03 20:28] LABS: Basophils Absolute Manual 0.00 K/mm3 (0-0.1); Basophils Percent Manual 0 % (0-1); Eosinophils Absolute Manual 0.00 K/mm3 (0.02-0.50); Eosinophils Percent Manual 0 % (1-6); Lymphocytes Absolute Manual 0.17 K/mm3 (1.1-4.5); Lymphocytes Percent Manual 35 % (18-44)
[2025-06-03 20:35] LABS: NT Pro B Type Natriuretic Pept 396 pg/mL (19.9-100); Troponin I 0.017 ng/mL (0.000-0.034)
[2025-06-03 20:45] LABS: Influenza A QL RT-PCR Negative (Negative); Influenza B QL RT-PCR Negative (Negative); RSV RNA, RT-PCR Negative (Negative); SARS-CoV-2 RNA PCR Negative (Negative)
[2025-06-03] MEDS: PIPERACILLIN/TAZOBACTAM SOD 3.375 GM in SODIUM CHLORIDE 0.9% IV 50 ML 100 ML IVPB (21:08)
[2025-06-03 21:18] LABS: Add Urine Microscopic? YES; Appearance Urine Clear (Clear); Glucose Urine UA Negative (Negative); Leukocyte Esterase Ur Negative LEU/UL (Negative); Nitrate Urine Negative (Negative); Specific Grav Ur <= 1.005 (1.010-1.020)
--- NOTE | 2025-06-03 21:31 | ED.FEVER ---
HPI - Fever General Chief Complaint: Fever Stated Complaint: fever Time Seen by Provider: 06/03/25 19:27 Source: patient and family Mode of arrival: ambulatory Limitations: no limitations History of Present Illness HPI Narrative: this is a 70-year-old male with a history of prostate cancer being treated at the [facility] [place] has been receiving chemotherapy with his last therapy approximately 1 week ago presents with fever to 100.4 with chills and otherwise denies any chest pain shortness of breath has weakness with some no nausea or vomiting no chest pain or shortness of breath no dysuria no flank pain no hematuria. MD elicited complaint: fever and weakness Onset (ago): hour(s) Related Data Home Medications ?Medication ?Instructions ?Recorded ?Confirmed ?Last Taken ?Type ergocalciferol (vitamin D2) 1,250 1,250 mcg PO DAILY 12/24/21 11/01/22 Unknown History mcg (50,000 unit) capsule hydrocodone 7.5 mg-acetaminophen 1 tablet PO Q4-6H PRN Pain 12/24/21 11/01/22 Unknown History 325 mg tablet leuprolide 3.75 mg intramuscular See Rx Instructions .Route .COMPLEX 12/24/21 11/01/22 Unknown History pantoprazole 40 mg tablet,delayed 40 mg PO BID 10/18/22 11/01/22 Unknown History release prochlorperazine maleate 10 mg 10 mg PO Q6H PRN Nausea 10/18/22 11/01/22 11/01/22 History tablet olanzapine 5 mg tablet 5 mg PO QPM 06/03/25 Unknown History prednisone 10 mg tablet 10 mg PO DAILY 06/03/25 Unknown History Allergies Allergy/AdvReac Type Severity Reaction Status Date / Time meperidine AdvReac Nausea and Verified 06/03/25 19:08 Vomiting Review of Systems Review of Systems: All systems reviewed & are unremarkable except as noted in HPI and below PMFSH Past Medical History Medical History Colles' fracture of left radius, initial encounter for closed fracture Family History Family History Other Family history of cardiovascular disease Family history of malignant neoplasm Hypertension Social History Social History Smoking status: Never smoker Alcohol intake: current Substance use: current Substance use type: marijuana Other substance usage details: Daily Living arrangements: with family Spiritual care concerns: No Exam Const: General: no acute distress and ill appearing Nutritional Appearance: thin Orientation/consciousness: patient oriented x3 Limitations: physical limitations HENMT: Head: normal to inspection Eyes: Conjunctivae: conjunctivae normal Neck: Neck: normal visual inspection, no lymphadenopathy and no meningeal signs Chest: Chest palpation & inspection: normal inspection of the chest Resp: Effort & Inspection: normal respiratory effort Auscultation: clear to auscultation bilaterally Cardio: Rate: tachycardic GI: GI Palp: Yes Soft to palpation Auscultation: normal bowel sounds : General: Yes bladder normal to palpation Back/Spine/Pelvis: Back: no CVA tenderness Skin: General skin exam: normal color Rashes: no rashes Wounds: no wounds Neuro: General: patient oriented x3, moves all extremities, no meningeal signs and no focal motor deficits Extrem: General: normal to inspection, no clubbing, cyanosis or edema and no pedal edema Course TAX CLERK/PA Physician Supervision Patient had blood work performed which shows that he has white count of 0.5 Patient received a dose of Zosyn and vancomycin along with IV fluids heart rate has come down to 89 on a Cardizem drip the urinalysis and chest x-ray showing no acute abnormality with a lactic acid of 1.3 troponins negative H&H of 12 and 38 patient received IV fluids Cardizem Zosyn and IV vancomycin spoke to hospitalist staff [facility] of the patient for transfer. Vital Signs Vital signs: Vital Signs Temperature 38.1 C H 06/03/25 19:11 Pulse Rate 147 H 06/03/25 19:11 Respiratory Rate 20 06/03/25 19:11 Blood Pressure 157/83 H 06/03/25 19:11 Pulse Oximetry 96 06/03/25 19:11 Oxygen Delivery Room Air 06/03/25 19:11 Temperature 36.8 C 06/04/25 03:08 Pulse Rate 81 06/04/25 03:08 Respiratory Rate 20 06/04/25 03:08 Blood Pressure 133/76 06/04/25 03:08 Pulse Oximetry 97 06/04/25 03:08 Oxygen Delivery Room Air 06/04/25 03:08 MDM - Fever Lab Data 06/03/25 19:55 06/03/25 19:55 Labs: Lab Results 06/03/25 06/03/25 06/03/25 Range/Units 19:55 19:56 20:13 WBC 0.5 L* (4.8-10.8) K/mm3 RBC 4.36 L (4.70-6.10) M/mm3 Hgb 12.7 (12.4-15.3) g/dL Hct 38.3 (37.0-46.0) % MCV 87.8 (78.0-102.0) fL MCH 29.1 (27.0-31.0) pg MCHC 33.2 (32-36) g/dL RDW 12.2 (11.6-14.4) % Plt Count 128 L (150-420) K/mm3 MPV 11.1 H (8.7-11.0) fl Immature Gran % (Auto) Not Reportable Neut % (Auto) Not Reportable Lymph % (Auto) Not Reportable [place] % (Auto) Not Reportable Eos % (Auto) Not Reportable Baso % (Auto) Not Reportable Lymph # (Auto) Not Reportable [place] # (Auto) Not Reportable Eos # (Auto) Not Reportable Baso # (Auto) Not Reportable Abs Immat Gran (auto) Not Reportable Absolute Neuts (auto) Not Reportable Absolute Nucleated RBC Not Reportable Neutrophils % (Manual) 45 L (46-73) % Band Neutrophils % 0 (0-6) % Lymphocytes % (Manual) 35 (18-44) % Monocytes % (Manual) 20 H (3-9) % Eosinophils % (Manual) 0 L (1-6) % Basophils % (Manual) 0 (0-1) % Nucleated RBC % Not Reportable Abs Neuts (Manual) 0.22 L* (1.3-6.7) K/mm3 Abs Lymphs (Manual) 0.17 L (1.1-4.5) K/mm3 Abs Monocytes (Manual) 0.10 (0.1-0.90) K/mm3 Absolute Eos (Manual) 0.00 L (0.02-0.50) K/mm3 Abs Basophils (Manual) 0.00 (0-0.1) K/mm3 Platelet Estimate Adequate (Adequate) % Immature Plt Fraction 2.9 (1.0-7.0) % Schistocytes Not Reportable PT 12.6 H (9.50-12.1) Seconds INR 1.2 APTT 30.9 H (23.9-30.70) Sec Sodium 139 (137-145) mmol/L Potassium 4.1 (3.4-5.0) mmol/L Chloride 103 (98-107) mmol/L Carbon Dioxide 27 (22-30) mmol/L Anion Gap 9 (4-12) mmol/L BUN 16 (9-20) mg/dL Creatinine 0.65 L (0.7-1.3) mg/dL Estim Creat Clear Calc 74 ml/min Estimated GFR > 60 (59 - ) Glucose 121 H (65-110) mg/dL Calculated Osmolality 290 (285-295) mOsm/kg Lactic Acid 1.3 (0.4-2.0) mmol/L Calcium 9.6 (8.4-10.2) mg/dL Total Bilirubin 1.6 H (0.2-1.3) mg/dL AST 26 (17-59) U/L ALT 21 (6-50) U/L Alkaline Phosphatase 51 (38-126) U/L Troponin I 0.017 (0.000-0.034) ng/mL NT-Pro-B Natriuret Pep 396 H (19.9-100) pg/mL Total Protein 6.7 (6.3-8.2) g/dL Albumin 4.2 (3.5-5.1) g/dL Urine Color (Yellow) Urine Appearance (Clear) Urine pH (5.0-8.0) Ur Specific Brandon (1.010-1.020) Urine Protein (Negative) Urine Glucose (UA) (Negative) Urine Ketones (Negative) Ur Blood (Man) (Negative) Urine Nitrate (Negative) Urine Bilirubin (Negative) Urine Urobilinogen (0.2-1.0) mg/dL Leukocyte Esterase Rfl (Negative) EVELINE/UL Urine RBC (0-2) /hpf Urine WBC (0-3) /hpf Ur Squamous Epith Cells (Few) /hpf Urine Bacteria (None) /hpf Influenza A (RT-PCR) (Negative) Influenza B (RT-PCR) (Negative) RSV (RT-PCR) (Negative) SARS-CoV-2 RNA (RT-PCR) (Negative) 06/03/25 06/03/25 Range/Units 20:14 21:16 WBC (4.8-10.8) K/mm3 RBC (4.70-6.10) M/mm3 Hgb (12.4-15.3) g/dL Hct (37.0-46.0) % MCV (78.0-102.0) fL MCH (27.0-31.0) pg MCHC (32-36) g/dL RDW (11.6-14.4) % Plt Count (150-420) K/mm3 MPV (8.7-11.0) fl Immature Gran % (Auto) Neut % (Auto) Lymph % (Auto) [place] % (Auto) Eos % (Auto) Baso % (Auto) Lymph # (Auto) [place] # (Auto) Eos # (Auto) Baso # (Auto) Abs Immat Gran (auto) Absolute Neuts (auto) Absolute Nucleated RBC Neutrophils % (Manual) (46-73) % Band Neutrophils % (0-6) % Lymphocytes % (Manual) (18-44) % Monocytes % (Manual) (3-9) % Eosinophils % (Manual) (1-6) % Basophils % (Manual) (0-1) % Nucleated RBC % Abs Neuts (Manual) (1.3-6.7) K/mm3 Abs Lymphs (Manual) (1.1-4.5) K/mm3 Abs Monocytes (Manual) (0.1-0.90) K/mm3 Absolute Eos (Manual) (0.02-0.50) K/mm3 Abs Basophils (Manual) (0-0.1) K/mm3 Platelet Estimate (Adequate) % Immature Plt Fraction (1.0-7.0) % Schistocytes PT (9.50-12.1) Seconds INR APTT (23.9-30.70) Sec Sodium (137-145) mmol/L Potassium (3.4-5.0) mmol/L Chloride (98-107) mmol/L Carbon Dioxide (22-30) mmol/L Anion Gap (4-12) mmol/L BUN (9-20) mg/dL Creatinine (0.7-1.3) mg/dL Estim Creat Clear Calc ml/min Estimated GFR (59 - ) Glucose (65-110) mg/dL Calculated Osmolality (285-295) mOsm/kg Lactic Acid (0.4-2.0) mmol/L Calcium (8.4-10.2) mg/dL Total Bilirubin (0.2-1.3) mg/dL AST (17-59) U/L ALT (6-50) U/L Alkaline Phosphatase (38-126) U/L Troponin I (0.000-0.034) ng/mL NT-Pro-B Natriuret Pep (19.9-100) pg/mL Total Protein (6.3-8.2) g/dL Albumin (3.5-5.1) g/dL Urine Color Light yellow (Yellow) Urine Appearance Clear (Clear) Urine pH 6.5 (5.0-8.0) Ur Specific Brandon <= 1.005 L (1.010-1.020) Urine Protein 1+ H (Negative) Urine Glucose (UA) Negative (Negative) Urine Ketones Trace H (Negative) Ur Blood (Man) Trace-intact H (Negative) Urine Nitrate Negative (Negative) Urine Bilirubin Negative (Negative) Urine Urobilinogen 0.2 (0.2-1.0) mg/dL Leukocyte Esterase Rfl Negative (Negative) EVELINE/UL Urine RBC 0-2 (0-2) /hpf Urine WBC 0-3 (0-3) /hpf Ur Squamous Epith Cells None seen (Few) /hpf Urine Bacteria None seen (None) /hpf Influenza A (RT-PCR) Negative (Negative) Influenza B (RT-PCR) Negative (Negative) RSV (RT-PCR) Negative (Negative) SARS-CoV-2 RNA (RT-PCR) Negative (Negative) Discharge Plan Discharge Clinical Impression: Neutropenic fever, Prostate cancer, Atrial tachycardia Patient Disposition: Acute Care Hospital Condition: Stable Patient Language: Armenian Prescriptions: No Action leuprolide 3.75 mg Injectable See Rx Instructions .ROUTE .COMPLEX Rx Instructions: . hydrocodone-acetaminophen 7.5-325 mg tablet 1 tablet PO Q4-6H PRN (Reason: Pain) ergocalciferol (vitamin D2) 1,250 mcg (50,000 unit) capsule 1,250 mcg PO DAILY olanzapine 5 mg tablet 5 mg PO QPM prednisone 10 mg tablet 10 mg PO DAILY prochlorperazine maleate 10 mg tablet 10 mg PO Q6H PRN (Reason: Nausea) pantoprazole 40 mg tablet,delayed release (DR/EC) 40 mg PO BID Follow-up/Referrals: Arvind Castellanos MD [Primary Care Provider, Internal Medicine]
[2025-06-03] MEDS: dilTIAZem 100 MG/100 ML 100 MG/100 ML BAG IV CONT (22:21)
--- NOTE | 2025-06-03 23:30 | PC.NURSE ---
Continuing to find placement for pt to transfer to. Continuing to monitor, VSS, Cardizem gtt continues, at bedside.
[2025-06-04] VITALS (8 sets, daily range): BP systolic 123–144; BP diastolic 64–76; PULSE 77–85; RESP 18–20; TEMP 36.8; O2SAT 95–98
--- NOTE | 2025-06-04 | CONSULT_PTH ---
PATIENT: Mayank Collazo LOC: [facility] U#:[id number] AGE/SX: 70/M ROOM: RE06/03/[address]: Sameer Fontaine MD : 1955 BED: DIS: 06/04/2025 SPEC #: [id number] RECD: 06/04/25 09:24 STATUS: FREDA REJoseph #: [id number] JM: 06/04/25 00:[address]: Sameer Fontaine DEPT: [facility] Consult RECD BY: Shirley Dalton MLT, ([facility]) ENTERED: 06/04/25 09:26 SP TYPE: Consult OTHR DR: Arvind Castellanos MD Tissues: A - Peripheral Smear Procedures: Hematology Consult
[2025-06-04] MEDS: VANCOMYCIN 1,500 MG/NS 500 ML 1,500 MG/500 ML BAG 250 MG IVPB (00:45)
--- NOTE | 2025-06-04 01:00 | PC.NURSE ---
Lights dimmed, awaiting call back from [facility] for transfer and bed placement.
[2025-06-04] MEDS: HYDROcodone/acetaminophen (*CRX) 5-325 MG TABLET 1 TAB PO (01:29)
--- NOTE | 2025-06-04 02:19 | PC.NURSE ---
Call from [facility], patience w/ POLINA Paul. Pt will go to [facility] Rm [id number].
[2025-06-04] MEDS: dilTIAZem HCL CD 120 MG CAP.24HR PO (02:31)
--- NOTE | 2025-06-07 12:24 | PC.NURSE ---
BLOOD CULTURE PRELIMINARY RESULT: NO GROWTH IN 24 HOURS.
--- NOTE | 2025-06-08 12:32 | PC.NURSE ---
preliminary blood cultures x2 reviewed. no growth in 48 hours
--- NOTE | 2025-06-11 12:59 | PC.NURSE ---
FINAL BLOOD CULTURE REPORT; NO GROWTH IN 5 DAYS.
== END 2025-06-04 03:08 | disposition short-term general hospital (02) ==
PROVIDERS: Emergency Provider Emergency Medicine; PCP Internal Medicine
DX: C61 Malignant neoplasm of prostate (principal); D70.9 Neutropenia, unspecified; R50.81 Fever presenting with conditions classified elsewhere; I47.19 Other supraventricular tachycardia; Z85.46 Personal history of malignant neoplasm of prostate; Z20.822 Contact with and (suspected) exposure to COVID-19; Z79.899 Other long term (current) drug therapy
CPT/HCPCS: 36415; 71045; 80053; 81001; 83605; 83880; 84484; 85025; 85055; 85610; 85730; 87040; 87637; 93005; 96361; 96365; 96366; 96375; 99285; A9270; J1163; J2543; J3373; J7030

== ENCOUNTER 2025-06-14 12:49 | Outpatient (CLI) | payer MEDICARE, OTHER, SELFPAY ==
--- NOTE | ~2025-06-14 | DEXA_ITS ---
Bone Density Report Name: DESHAWN JENKINS Age: 70 Sex: Male Ethnicity: White Date of : 1955 Indication: screening for osteoporosis; cancer; Referring Provider: UNKNOWN, UNKNOWN Study: Bone densitometry was performed. Exam Date: June 14, 2025 Accession number: [id number] Bone Density: Region BMD T-score Z-score Classification AP Spine(L1-L4) 1.025 -0.6 0.3 Normal Femoral Neck (Left) 0.521 -3.0 -1.8 Osteoporosis Total Hip (Left) 0.588 -2.9 -2.3 Osteoporosis Femoral Neck (Right) 0.514 -3.1 -1.9 Osteoporosis Total Hip (Right) 0.594 -2.9 -2.2 Osteoporosis Femoral Neck Mean 0.518 -3.0 -1.8 Osteoporosis Total Hip Mean 0.591 -2.9 -2.3 Osteoporosis World Health Organization criteria for BMD impression classify patients as: Normal (T-score at or above -1.0), Osteopenia (T-score between -1.0 and -2.5), or Osteoporosis (T-score at or below -2.5). 10-year Fracture Risk: FRAX not reported because: Some T-score for Spine Total or Hip Total or Femoral Neck at or below -2.5 Clinical Information Provided by Patient: Has used the following medications: Vitamin D Has the following medical conditions: Cancer Patient maximum height was 71 Impression: The patient has osteoporosis, based on the Right Femoral Neck T-score. Discussion: INCREASED RISK OF FRACTURE. BONE DENSITY IS UNDESIRABLY LOW AT ONE OR MORE SKELETAL SITES, CONSISTENT WITH OSTEOPOROSIS. This patient's lowest T-score meets the World Health Organization's (WHO) criteria for osteoporosis at one or more sites (T-score -2.5 or below). In untreated patients, the risk of osteoporotic fracture increases approximately two-fold for each 1.0 SD decrease in T-score. Low bone density is not the only risk factor for fracture; also consider factors such as patient's age, frailty or poor health, risk of falling, risk of injury, previous osteoporotic fracture, family history of osteoporosis, cigarette smoking, low body weight, etc. Not everyone with low bone mineral density has osteoporosis; osteomalacia and other metabolic bone disorders should also be considered. Patients who have osteoporosis should be evaluated for specific diseases and conditions (secondary causes) that may cause or contribute to bone loss. The National Osteoporosis Foundation (NOF) recommends pharmacologic intervention for men with BMD at this level (a T-score of -2.5 or below). The patient should follow a healthful lifestyle (good nutrition with adequate calcium and vitamin D, and appropriate weight-bearing exercise). Follow-Up: Consider repeating this study in 2 years to reassess this patient's status, or sooner if there is some new clinical indication. Reported by: HARISH on 06/16/2025 10:41:00 AM. Reviewed, dictated and finalized at location A.
--- OUTSIDE RECORDS SUMMARY | 2025-06-14 13:16 | XMS_ITS | Clinical Summary ---
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) Take 1 tablet (10 mg) by mouth daily 30 tablet 5 05/04/20 25 Active OLANZapine (ZyPREXA) 5 mg tablet Take 1 tablet (5 mg total) by mouth nightly 30 tablet 3 05/26/20 25 026 Active prochlorperazin e (COMPAZINE) 10 mg tablet TAKE 1 TABLET BY MOUTH EVERY 6 HOURS NEEDED FOR NAUSEA 120 tablet 1 06/07/20 25 Active prochlorperazin e (COMPAZINE) 10 mg tablet TAKE 1 TABLET BY MOUTH EVERY 6 HOURS NEEDED FOR NAUSEA 120 tablet 1 04/05/20 25 025 Discontinued OLANZapine (ZyPREXA) 2.5 mg tablet [...] Encounters Date Type Department Care Team Description 06/11/2025 [facility] [address] [place] [address] [address] [place] [address] Tierney Magana RN 06/09/2025 [facility]phone [facility] [address] [place] [address] [address] [place] [address] Sharmin De La Vega, POLINA 06/07/2025 [facility]phone [facility] [address] [place] [address] [address] [place] [address] Sharmin De La Vega, POLINA 06/04/2025 [facility]phone [facility] [address] [place] [address] [address] [place] [address] Yudith Orozco CMA 06/04/2025 Orders Only [facility] [address] [facility] Floor 5 [place] [address] Sharmin De La Vega, POLINA 06/03/[address] 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) 05/26/2025 9:00 AM CDT Office Visit [facility] [address] [place] [address] [address] [place] [phone] Junaid Cifuentes MD PhD 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); Prostate cancer (HCC) 05/26/2025 8:00 AM CDT Clinical Support [facility] at [address] [place] [address] Prostate cancer (HCC); 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) 05/26/2025 Orders Only [facility] - Infusion [address] [facility] Floor 5 [place] [address] Rigoberto Walls [facility] 05/06/2025 Telephone [facility] [address] [place] [address] [address] [place] [address] Tierney Magana RN 05/05/2025 9:30 AM CDT Infusion [address] [place], [place] [address] 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); Prostate cancer (HCC) 05/05/2025 9:00 AM CDT Office Visit [facility] [address] [place] [address] [address] [place] [address] Gladis Savage, ALTON Prostate cancer (HCC); 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) 05/05/2025 8:00 AM CDT Clinical Support [facility] [place] at [facility] [address] [facility] [place] [address] Prostate cancer (HCC); 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); Research study patient 05/05/2025 Documentation [facility] at [facility] [address] [facility] [place] [address] Maye Cottrell, BUFFY 05/03/2025 Orders Only [facility] [address] [place] [address] [address] [place] [phone] Junaid Cifuentes MD PhD Research study patient 04/28/2025 7:42 AM CDT - 04/28/2025 11:59 PM CDT Hospital Encounter [facility] Imaging [address] [place], [place] [address] Vida Weller, Paulette Perdomo RN Prostate cancer (HCC) Discharge Disposition: Discharge to home or self care 04/27/2025 Telephone [facility] [address] [place] [address] Padmini Webb RN 04/14/2025 8:30 AM CDT Office Visit [facility] [address] [place] [address] [address] [place] [phone] Junaid Cifuentes MD PhD 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); Prostate cancer (HCC) 04/14/2025 8:00 AM CDT Lab [facility] at [facility] [address] [facility] [place] [address] Prostate cancer (HCC); 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) 04/08/2025 11:49 AM CDT - 04/08/2025 11:59 PM CDT Hospital Encounter [facility] [address] [place] [address] Prostate cancer (HCC); 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) Discharge Disposition: Discharge to home or self care 04/08/2025 11:48 AM CDT - 04/08/2025 11:59 PM CDT Hospital Encounter [facility] [address] [place] [address] Discharge Disposition: Discharge to home or self care 04/08/2025 11:47 AM CDT - 04/08/2025 11:59 PM CDT Hospital Encounter [facility] [address] [place] [address] Prostate cancer (HCC); 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) Discharge Disposition: Discharge to home or self care 03/24/2025 8:40 AM CDT Office Visit [facility] Oncology [address] [facility] [address] [place] [address] Gladis Savage NP 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); Prostate cancer (HCC) 03/24/2025 7:45 AM CDT [facility] at [facility] [address] [facility] [place] [address] Prostate cancer (HCC); 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) 03/23/2025 11:38 AM CDT - 03/23/2025 11:59 PM CDT Hospital Encounter [facility] [address] [facility] Medical Office Building 2 [place] [address] Prostate cancer (HCC); Secondary and unspecified malignant [...] on file 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 Testing performed by: [facility], [address] [place] [address] Blood 05/26/2025 7:55 AM CDT 05/26/2025 8:23 AM CDT Junaid Cifuentes MD PhD LAB BLOOD ORDERABLES Final Result [facility] [address] Department [place] [address] * (ABNORMAL) Differential, auto (05/26/2025 7:55 AM CDT) Neutrophil abs 7.67(H) 1.50 - 6.50 K/cumm Comment:Testing performed by : [facility] 2, [address] [place] [address] Imm gran abs 0.04 0.00 - 0.10 K/cumm GORAN BJWESTEBAN Comment:Testing performed by : [facility] 2, [address] [place] [address] Lymphocyte abs 0.99 0.80 - 3.30 K/cumm GORAN HELM Comment:Testing performed by : [facility] 2, [address] [place] [address] Monocyte abs 0.58 0.20 - 0.80 K/cumm GORAN BJANAHY Comment:Testing performed by : [facility] 2, [address] [place] [address] Eosinophil abs 0.00 0.00 - 0.50 K/cumm GORAN BJJuliusCH Comment:Testing performed by : [facility] 2, [address] [place] [address] Basophil abs 0.02 0.00 - 0.10 K/cumm CERINCHOLE BJWCH Comment:Testing performed by : [facility] 2, [address] [place] [address] Neutrophil pct 82.6 % CERNER BJWCH Comment: Interpretive Data Percent cell count reference ranges are not reported, since discordance with absolute values may lead to misinterpretation of CBC data. Current Interpretive Data was last revised on 2017. Testing performed by: [facility], [facility] 2, [address] [place] [address] Imm gran pct 0.4 % CERNER BJWCH Comment: Interpretive Data Percent cell count reference ranges are not reported, since discordance with absolute values may lead to misinterpretation of CBC data. Current Interpretive Data was last revised on 2017. Testing performed by: [facility], [facility] 2, [address] [place] [address] Lymphocyte pct 10.6 % CERNER BJWCH Comment: Interpretive Data Percent cell count reference ranges are not reported, since discordance with absolute values may lead to misinterpretation of CBC data. Current Interpretive Data was last revised on 2017. Testing performed by: [facility], [facility] 2, [address] [place] [address] Monocyte pct 6.2 % CERNER BJWCH Comment: Interpretive Data Percent cell count reference ranges are not reported, since discordance with absolute values may lead to misinterpretation of CBC data. Current Interpretive Data was last revised on 2017. Testing performed by: [facility], [facility] 2, [address] [place] [address] Eosinophil pct 0.0 % CERNER BJWCH Comment: Interpretive Data Percent cell count reference ranges are not reported, since discordance with absolute values may lead to misinterpretation of CBC data. Current Interpretive Data was last revised on 2017. Testing performed by: [facility], [facility] 2, [address] [place] [address] Basophil pct 0.2 % CERNER BJWCH Comment: Interpretive Data Percent cell count reference ranges are not reported, since discordance with absolute values may lead to misinterpretation of CBC data. Current Interpretive Data was last revised on 2017. Testing performed by: [facility], [facility] 2, [address] [place] [address] Blood 05/26/2025 7:55 AM CDT 05/26/2025 7:56 AM CDT Junaid Cifuentes MD PhD LAB BLOOD ORDERABLES Final Result [facility] [address] [facility] Department [place] [address] * (ABNORMAL) CBC with auto differential (05/26/2025 7:55 AM CDT) WBC 9.30 3.80 - 9.90 K/cumm Comment:Testing performed by : [place] [address], [place] [address] Hgb 14.1 13.0 - 17.5 g/dL [facility] Comment:Testing performed by : [place] [address], [place] [address] Hct 43.1 38.9 - 50.3 % [facility] Comment:Testing performed by : [address] [place] [address] Plt 211 150 - 400 K/cumm [facility] Comment:Testing performed by : [address] [place] [address] MPV 10.1 9.1 - 12.3 fL CERNICHOLE BJWCH Comment:Testing performed by : [place] [address], [address] [place] [address] RBC 4.81 4.30 - 5.80 M/cumm GORAN BJWCH Comment:Testing performed by : [place] [address], [address] [place] [address] MCV 89.6 81.3 - 96.4 fL CERNICHOLE BJWCH Comment:Testing performed by : [place] [address], [address] [place] [address] MCH 29.3 27.1 - 33.3 pg GORAN HELM Comment:Testing performed by : [facility], [facility] 2, [address] [place] [address] MCHC 32.7 32.3 - 35.7 g/dL GORAN HELM Comment:Testing performed by : [facility], [facility] 2, [address] [place] [address] RDW CV 12.7 11.1 - 14.9 % GORAN HELM Comment:Testing performed by : [facility], [facility] 2, [address] [place] [address] RDW SD 41.5 35.7 - 48.1 fL GORAN HELM Comment:Testing performed by : [facility], [facility] 2, [address] [place] [address] ANC Prelim 7.67(H) 1.50 - 6.50 K/cumm GORAN HELM Comment: Interpretive Data The rapid ANC is a preliminary automated count and may vary from the final ANC (Neut Abs) reported in the WBC differential that follows. Current interpretive data was last revised 2024. Testing performed by: [facility], [facility] 2, [address] [place] [address] Blood 05/26/2025 7:55 AM CDT 05/26/2025 7:56 AM CDT Junaid Cifuentes MD PhD LAB BLOOD ORDERABLES Final Result [facility]AN YOUSSEFWCH [address] [facility]. Department [place] [address] * 1,25 Dihydroxycholecalciferol (05/26/2025 7:55 AM CDT) [facility] 1-25-di-OH Vit D 35 18 - 64 pg/mL [facility] Comment: ADDITIONAL INFORMATION This test was developed and its performance characteristics determined by [facility] in a manner consistent with CLIA requirements. This test has not been cleared or approved by the U.S. Food and Drug Administration. Test Performed by: [facility] - [facility] [address] [place] [address] Supervisor Concrete [employer] Finishing: Angelique Gomez Ph.D.; CLIA# [id number] Testing performed by: [facility], [address] [facility] [place] [address] Blood 05/26/2025 7:55 AM CDT 05/26/2025 10:06 AM CDT Junaid Cifuentes MD PhD LAB BLOOD ORDERABLES Final Result Performing Organization Address City/[facility]/ZIP Co de Phone Number GORAN YOUSSEFWCH [address] [place] [address] [facility] * (ABNORMAL) PSA diagnostic (05/26/2025 7:55 AM CDT) PSA-Total 47.94(H) <=6.20 ng/mL Comment: Interpretive Data [...] last revised 22. Testing performed by: [facility], [address] [place] [address] Blood 05/26/2025 7:55 AM CDT 05/26/2025 8:23 AM CDT Junaid Cifuentes MD PhD LAB BLOOD ORDERABLES Final Result Performing Organization Address [facility]/ZIP Co de Phone Number [facility] BJWCH [address] [facility]. [facility] [place] [address] * (ABNORMAL) Comprehensive metabolic panel (05/26/2025 7:55 AM CDT) Sodium 141 135 - 145 mmol/L Comment:Testing performed by : [facility], [address], [place] [address] Potassium, pl 4.3 3.3 - 4.9 mmol/L CERNER BJWCH Comment:Testing performed by : [facility], [address], [place] [address] Chloride 101 97 - 110 mmol/L CERNER BJWCH Comment:Testing performed by : [facility], [address], [place] [address] CO2 30 22 - 32 mmol/L CERNER BJWCH Comment:Testing performed by : [facility], [address], [place] [address] Anion gap 10 2 - 15 mmol/L CERNER BJWCH Comment:Testing performed by : [facility], [address], [place] [address] BUN 22 6 - 25 mg/dL CERNER BJWCH Comment:Testing performed by : [facility], [address], [place] [address] Creatinine 0.90 0.80 - 1.30 mg/dL CERNER BJWCH Comment:Testing performed by : [facility], [address], [place] [address] Glucose 152 70 - 199 mg/dL CERNER BJW Comment: Interpretive Data Fasting glucose >/= 126 [...] last revised 2022. Testing performed by: [facility], [address], [place] [address] Calcium 9.6 8.5 - 10.3 mg/dL CERNER BJWCH Comment:Testing performed by : [facility], [address], [place] [address] Bilirubin, total 0.3 0.1 - 1.2 mg/dL CERNER BJWCH Comment:Testing performed by : [facility], [address], [place] [address] Protein, pl 6.4(L) 6.5 - 8.5 g/dL CERNER BJWCH Comment:Testing performed by : [facility], [address], [place] [address] Albumin 4.4 3.5 - 5.0 g/dL CERNER BJWCH Comment:Testing performed by : [facility], [address], [place] [address] Alk phos 76 40 - 130 Units/L CERNER BJWCH Comment:Testing performed by : [facility], [address], [place] [address] ALT 19 7 - 55 Units/L CERNER BJWCH Comment:Testing performed by : [facility], [address], [place] [address] AST 18 10 - 50 Units/L CERNER BJWCH Comment:Testing performed by : [facility], [address], [place] [address] Blood 05/26/2025 7:55 AM CDT 05/26/2025 8:23 AM CDT us Junaid Cifuentes MD PhD LAB BLOOD ORDERABLES Edited Result - Final [facility] [address] Department [place] [address] * (ABNORMAL) Urinalysis reflex to microscopic (05/05/2025 8:30 AM CDT) Color, ur Straw Yellow Comment:Testing performed by : [facility], [address], [place] [address] Clarity, ur Clear Clear CERNER BJWCH Comment:Testing performed by : [facility], [address], [place] [address] Specific gravity, ur 1.022 1.003 - 1.030 CERNER BJWCH Comment:Testing performed by : [facility], [address], [place] [address] pH, urine 6.0 CERNER BJWCH Comment: Interpretive Data U rine pH is affected by diet, medications, systemic acid-base disturbances, and renal tubular function. pH may affect urinary stone formation. For example, urine pH below 6.0 may help reduce the tendency for calcium phosphate stones and pH greater than 6.0 may reduce the tendency for uric acid stone formation. Source: [place] [employer] Current Interpretive Data was last revised on 2017 Testing performed by: [facility], [address], [place] [address] Protein, ur ql 1+(A) Negative CERNER BJWCH Comment:Testing performed by : [facility], [address], [place] [address] Glucose, ur ql Negative Negative CERNER BJWCH Comment:Testing performed by : [facility], [address], [place] [address] Ketones, ur Negative Negative CERNER BJWCH Comment:Testing performed by : [facility], [address], [place] [address] Bilirubin, ur Negative Negative CERNER BJWCH Comment:Testing performed by : [facility], [address], [place] [address] Blood, ur 2+(A) Negative CERNER BJWCH Comment:Testing performed by : [facility], [address], [place] [address] Urobilinogen, ur <2.0 <2.0 mg/dL CERNER BJWCH Comment:Testing performed by : [facility], [address], [place] [address] Nitrite, ur Negative Negative CERNER BJWCH Comment:Testing performed by : [facility], [address], [place] [address] Leukocyte esterase, ur Negative Negative GORAN HELM Comment:Testing performed by : [facility], [address], [place] [address] UA reflex comment Reflex to microscopic UA will be performed. GORAN HELM Comment:Testing performed by : [facility], [address], [place] [address] Urine 05/05/2025 8:30 AM CDT 05/05/2025 9:20 AM CDT Junaid Cifuentes MD PhD LAB URINE ORDERABLES Final Result Performing Organization Address [facility] de Phone Number GORAN [facility] [address] [facility] [place] [address] * (ABNORMAL) Urinalysis, microscopic only (05/05/2025 8:30 AM CDT) Pathologist [facility] WBC, ur 0-5 0 - 5 /HPF Comment:Testing performed by : [facility], [address], [place] [address] RBC, ur 6-10(A) 0 - 2 /HPF GORAN HELM Comment:Testing performed by : [facility], [address], [place] [address] Mucous, ur Present(A) GORAN HELM Comment:Testing performed by : [facility], [address], [place] [address] Urine 05/05/2025 8:30 AM CDT 05/05/2025 9:20 AM CDT Junaid Cifuentes MD PhD LAB URINE ORDERABLES Final Result Performing Organization Address [facility] de Phone Number KALEBNICHOLE BJWCH [address] [facility] [place] [address] * eGFR (05/05/2025 8:28 AM CDT) eGFR [...] last reviewed 2021. Testing performed by: [facility], [address] [place] [address] Blood 05/05/2025 8:28 AM CDT 05/05/2025 8:49 AM CDT us Junaid Cifuentes MD PhD LAB BLOOD ORDERABLES Final Result [facility] [address] Department [place] [address] * (ABNORMAL) Differential, auto (05/05/2025 8:28 AM CDT) Pathologist [facility] Neutrophil abs 5.58 1.50 - 6.50 K/cumm Comment:Testing performed by : [facility], [facility] 2, [address] [place] [address] Imm gran abs 0.03 0.00 - 0.10 K/cumm GORAN HELM Comment:Testing performed by : [facility], [facility], [address] [place] [address] Lymphocyte abs 0.47(L) 0.80 - 3.30 K/cumm CERNER BJWCH Comment:Testing performed by : [facility], [facility] 2, [address], [place] [address] Monocyte abs 0.38 0.20 - 0.80 K/cumm CERNER BJWCH Comment:Testing performed by : [facility], [facility] 2, [address], [place] [address] Eosinophil abs 0.01 0.00 - 0.50 K/cumm CERNER BJWCH Comment:Testing performed by : [facility], [facility] 2, [address], [place], [place] [address] Basophil abs 0.01 0.00 - 0.10 K/cumm CERNER BJWCH Comment:Testing performed by : [facility], [facility] 2, [address] [place] [address] Neutrophil pct 85.9 % CERNER BJWCH Comment: Interpretive Data Percent cell count reference ranges are not reported, since discordance with absolute values may lead to misinterpretation of CBC data. Current Interpretive Data was last revised on 2017. Testing performed by: [facility], [facility] 2, [address], [place] [address] Imm gran pct 0.5 % CERNER BJWCH Comment: Interpretive Data Percent cell count reference ranges are not reported, since discordance with absolute values may lead to misinterpretation of CBC data. Current Interpretive Data was last revised on 2017. Testing performed by: [facility], [facility] 2, [address], [place] [address] Lymphocyte pct 7.3 % CERNER BJWCH Comment: Interpretive Data Percent cell count reference ranges are not reported, since discordance with absolute values may lead to misinterpretation of CBC data. Current Interpretive Data was last revised on 2017. Testing performed by: [facility], [facility] 2, [address], [place] [address] Monocyte pct 5.9 % CERNER BJWCH Comment: Interpretive Data Percent cell count reference ranges are not reported, since discordance with absolute values may lead to misinterpretation of CBC data. Current Interpretive Data was last revised on 2017. Testing performed by: [facility] 2, [address] [place] [address] Eosinophil pct 0.2 % GORAN HELM Comment: Interpretive Data Percent cell count reference ranges are not reported, since discordance with absolute values may lead to misinterpretation of CBC data. Current Interpretive Data was last revised on 2017. Testing performed by: [facility] 2, [address] [place] [address] Basophil pct 0.2 % GORAN HELM Comment: Interpretive Data Percent cell count reference ranges are not reported, since discordance with absolute values may lead to misinterpretation of CBC data. Current Interpretive Data was last revised on 2017. Testing performed by: [facility] 2, [address] [place] [address] Blood 05/05/2025 8:28 AM CDT 05/05/2025 8:34 AM CDT us Junaid Cifuentes MD PhD LAB BLOOD ORDERABLES Final Result GORAN [facility] [address] [facility] [place] [place] [address] * CBC with auto differential (05/05/2025 8:28 AM CDT) WBC 6.48 3.80 - 9.90 K/cumm Comment:Testing performed by : [facility] 2, [address] [place] [address] Hgb 13.5 13.0 - 17.5 g/dL GORAN HELM Comment:Testing performed by : [facility] 2, [address] [place] [address] Hct 40.5 38.9 - 50.3 % GORAN HELM Comment:Testing performed by : [facility] 2, [address] [place] [address] Plt 199 150 - 400 K/cumm CERNER BJWCH Comment:Testing performed by : [facility], [facility] 2, [address] [place] [address] MPV 10.5 9.1 - 12.3 fL CERNER BJWCH Comment:Testing performed by : [facility] 2, [address] [place] [address] RBC 4.61 4.30 - 5.80 M/cumm CERNICHOLE BJWCH Comment:Testing performed by : [place] [address], [address] [place] [address] MCV 87.9 81.3 - 96.4 fL CERNICHOLE BJWCH Comment:Testing performed by : [place] [address], [address] [place] [address] MCH 29.3 27.1 - 33.3 pg CERNICHOLE BJWCH Comment:Testing performed by : [place] [address], [address] [place] [address] MCHC 33.3 32.3 - 35.7 g/dL CERNICHOLE BJWCH Comment:Testing performed by : [place] [address], [address] [place] [address] RDW CV 12.5 11.1 - 14.9 % GORAN BJWCH Comment:Testing performed by : [place] [address], [address] [place] [address] RDW SD 40.3 35.7 - 48.1 fL CERNICHOLE BJWCH Comment:Testing performed by : [place] [address], [address] [place] [address] ANC Prelim 5.58 1.50 - 6.50 K/cumm CERNER BJWCH Comment: Interpretive Data The rapid ANC is a preliminary automated count and may vary from the final ANC (Neut Abs) reported in the WBC differential that follows. Current interpretive data was last revised 2024. Testing performed by: [place] [address], [address] [place] [address] Blood 05/05/2025 8:28 AM CDT 05/05/2025 8:34 AM CDT us Junaid Cifuentes MD PhD LAB BLOOD ORDERABLES Final Result Performing Organization Address [facility] de Phone Number GORAN YOUSSEFCH [address] [address] [facility]. [facility] [place] [address] * Uric acid (05/05/2025 8:28 AM CDT) Uric acid 3.5 3.0 - 8.0 mg/dL Comment:Testing performed by : [facility], [address] [place] [address] Blood 05/05/2025 8:28 AM CDT 05/05/2025 8:49 AM CDT Junaid Cifuentes MD PhD LAB BLOOD ORDERABLES Final Result Performing Organization Address [facility] Phone Number GORAN BJCH [address] [address] [facility]. Department [place] [address] * Triglycerides (05/05/2025 8:28 AM CDT) Triglycerides [...] revised on 2018. Testing performed by: [facility], [address] [place] [address] Blood 05/05/2025 8:28 AM CDT 05/05/2025 8:49 AM CDT us Junaid Cifuentes MD PhD LAB BLOOD ORDERABLES Final Result Performing Organization Address [facility] Co de Phone Number GORAN RASHEEDCH [address] [facility] [place] [address] * (ABNORMAL) PSA diagnostic (05/05/2025 8:28 AM [...] last revised 22. Testing performed by: [facility], [address] [place] [address] Blood 05/05/2025 8:28 AM CDT 05/05/2025 8:49 AM CDT us Junaid Cifuentes MD PhD LAB BLOOD ORDERABLES Final Result Performing Organization Address City/[facility] Co de Phone Number GORAN YOUSSEFCH [address] [address] [facility]. [place] [address] * Phosphorus (05/05/2025 8:28 AM CDT) Phosphorus, pl 3.3 2.3 - 4.5 mg/dL Comment:Testing performed by : [facility], [address] [place] [address] Blood 05/05/2025 8:28 AM CDT 05/05/2025 8:49 AM CDT us Junaid Cifuentes MD PhD LAB BLOOD ORDERABLES Final Result Performing Organization Address [facility] de Phone Number GORAN BJWCH [address] [facility] [place] [address] * Lactate dehydrogenase (LD) (05/05/2025 8:28 AM CDT) Pathologist [facility] Lactate dehydrogenase (LDH) 154 100 - 250 Units/L Comment:Testing performed by : [facility], [address] [place] [address] Blood 05/05/2025 8:28 AM CDT 05/05/2025 8:49 AM CDT Junaid Cifuentes MD PhD LAB BLOOD ORDERABLES Final Result Performing Organization Address [facility] de Phone Number GORAN BJWCH [address] [place] [address] * (ABNORMAL) Creatine kinase (CK), total (05/05/2025 8:28 AM CDT) [facility] CK 28(L) 40 - 300 Units/L Comment:Testing performed by : [facility], [address] [facility] [place] [address] Blood 05/05/2025 8:28 AM CDT 05/05/2025 8:49 AM CDT Junaid Cifuentes MD PhD LAB BLOOD ORDERABLES Final Result Performing Organization Address [facility] de Phone Number GORAN BJWCH [phone] [facility] [place] [address] * (ABNORMAL) Comprehensive metabolic panel (05/05/2025 8:28 AM CDT) [facility] Sodium 141 135 - 145 mmol/L Comment:Testing performed by : [facility], [address] [place] [address] Potassium, pl 4.0 3.3 - 4.9 mmol/L CERNER BJWCH Comment:Testing performed by : [facility], [address], [place] [address] Chloride 102 97 - 110 mmol/L CERNER BJWCH Comment:Testing performed by : [facility], [address], [place] [address] CO2 28 22 - 32 mmol/L CERNER BJWCH Comment:Testing performed by : [facility], [address], [place] [address] Anion gap 11 2 - 15 mmol/L CERNER BJWCH Comment:Testing performed by : [facility], [address], [place] [address] BUN 18 6 - 25 mg/dL CERNER BJWCH Comment:Testing performed by : [facility], [address], [place] [address] Creatinine 0.70(L) 0.80 - 1.30 mg/dL CERNER BJWCH Comment:Testing performed by : [facility], [address], [place] [address] Glucose 142 70 - 199 mg/dL CERNER [...] last revised 2022. Testing performed by: [facility], [address], [place] [address] Calcium 9.5 8.5 - 10.3 mg/dL CERNER BJWCH Comment:Testing performed by : [facility], [address], [place] [address] Bilirubin, total 0.3 0.1 - 1.2 mg/dL CERNER BJWCH Comment:Testing performed by : [facility], [address], [place] [address] Protein, pl 6.8 6.5 - 8.5 g/dL CERNER BJWCH Comment:Testing performed by : [facility], [address], [place] [address] Albumin 4.3 3.5 - 5.0 g/dL CERNER BJWCH Comment:Testing performed by : [facility], [address], [place] [address] Alk phos 74 40 - 130 Units/L CERNER BJWCH Comment:Testing performed by : [facility], [address], [place] [address] ALT 16 7 - 55 Units/L CERNER BJWCH Comment:Testing performed by : [facility], [address], [place] [address] AST 22 10 - 50 Units/L CERNER BJWCH Comment:Testing performed by : [facility], [address], [place] [address] Blood 05/05/2025 8:28 AM CDT 05/05/2025 8:49 AM CDT Junaid Cifuentes MD PhD LAB BLOOD ORDERABLES Final Result GORAN BJWCH [address] Department [place] [address] * IR Port Placement Chest > 5 Years (04/28/2025 10:13 AM CDT) Anatomical Region Laterality Modality Chest N/A X-Ray Angiograph y 04/28/2025 10:3 9 AM CDT Impressions 04/28/2025 10:39 AM CDT Successful chest wall port placement. PLAN: The catheter is ready for immediate use. Please note that a power injectable port was placed. When treatment is completed, removal can be scheduled by calling [facility] - [phone] [facility] - [phone] Electronically signed by: Donal Carrillo PA-C Narrative [...] was obtained. Prior to beginning the procedure, [facility] Protocol was used to confirm the patient's [...] was obtained. Prior to beginning the procedure, [facility] Protocol was used to confirm the patient's [...] completed, removal can be scheduled by calling [facility] - [phone] [facility] - [phone] Electronically signed by: Donal Carrillo PA-C Junaid Cifuentes MD PhD IMG IR PROCEDURES Fin al Result * (ABNORMAL) Urinalysis reflex to microscopic and culture Urine (04/14/2025 8:29 AM CDT) Color, ur Yellow Yellow Comment:Testing performed by : [facility], [address], [place] [address] Clarity, ur Clear Clear CERNER BJWCH Comment:Testing performed by : [facility], [address], [place] [address] Specific gravity, ur >1.030(H) 1.003 - 1.030 CERNER BJWCH Comment:Testing performed by : [facility], [address], [place] [address] pH, urine 5.5 CERNER BJWCH Comment: Interpretive Data U rine pH is affected by diet, medications, systemic acid-base disturbances, and renal tubular function. pH may affect urinary stone formation. For example, urine pH below 6.0 may help reduce the tendency for calcium phosphate stones and pH greater than 6.0 may reduce the tendency for uric acid stone formation. Source: [employer] Current Interpretive Data was last revised on 2017 Testing performed by: [facility], [address], [place] [address] Protein, ur ql 1+(A) Negative CERNER BJWCH Comment:Testing performed by : [facility], [address], [place] [address] Glucose, ur ql Negative Negative CERNER BJWCH Comment:Testing performed by : [facility], [address], [place] [address] Ketones, ur Negative Negative CERNER BJWCH Comment:Testing performed by : [facility], [address], [place] [address] Bilirubin, ur Negative Negative CERNER BJWCH Comment:Testing performed by : [facility], [address], [place] [address] Blood, ur 1+(A) Negative CERNER BJWCH Comment:Testing performed by : [facility], [address], [place] [address] Urobilinogen, ur <2.0 <2.0 mg/dL CERNER BJWCH Comment:Testing performed by : [facility], [address], [place] [address] Nitrite, ur Negative Negative GORAN HELM Comment:Testing performed by : [facility], [address], [place] [address] Leukocyte esterase, ur Negative Negative GORAN HELM Comment:Testing performed by : [facility], [address], [place] [address] UA reflex comment Reflex to microscopic UA will be performed. GORAN HELM Comment:Testing performed by : [facility], [address], [place] [address] Urine 04/14/2025 8:29 AM CDT 04/14/2025 8:41 AM CDT Junaid Cifuentes MD PhD LAB MICROBIOLOGY - [facility] ORDERABLES Final Result GORAN HELM [address] [place] [address] * (ABNORMAL) Urinalysis, microscopic only (04/14/2025 8:29 AM CDT) WBC, ur 0-5 0 - 5 /HPF Comment:Testing performed by : [facility], [address], [place] [address] RBC, ur 11-20(A) 0 - 2 /HPF GORAN HELM Comment:Testing performed by : [facility], [address], [place] [address] Mucous, ur Present(A) GORAN HELM Comment:Testing performed by : [facility], [address], [place] [address] Calcium oxalate crystals, ur Trace(A) GORAN HELM Comment:Testing performed by : [facility], [address], [place] [address] Culture Reflex Comment Reflex conditions for urine culture (WBC >10) not met. GORAN HELM Comment:Testing performed by : [facility], [address] [place] [address] Urine 04/14/2025 8:29 AM CDT 04/14/2025 8:41 AM CDT Junaid Cifuentes MD PhD LAB URINE ORDERABLES Final Result Performing Organization Address [facility] Co de Phone Number GORAN RASHEED [address] [address] [address] * eGFR (04/14/2025 8:09 AM CDT) eGFR [...] last reviewed 2021. Testing performed by: [facility], [address] [place] [address] Blood 04/14/2025 8:09 AM CDT 04/14/2025 8:36 AM CDT us Junaid Cifuentes MD PhD LAB BLOOD ORDERABLES Final Result Performing Organization Address [facility]/ZIP Co de Phone Number GORAN YOUSSEFWCH [address] [address]. [place] [address] * (ABNORMAL) Differential, auto (04/14/2025 8:09 AM CDT) Neutrophil abs 3.61 1.50 - 6.50 K/cumm Comment:Testing performed by : [facility] 2, [address] [place] [address] Imm gran abs 0.01 0.00 - 0.10 K/cumm CERNER BJWCH Comment:Testing performed by : [place] [address], [address] [place] [address] Lymphocyte abs 0.65(L) 0.80 - 3.30 K/cumm CERNER BJWCH Comment:Testing performed by : [place] [address], [address] [place] [address] Monocyte abs 0.44 0.20 - 0.80 K/cumm CERNER BJWCH Comment:Testing performed by : [place] [address], [address] [place] [address] Eosinophil abs 0.02 0.00 - 0.50 K/cumm CERNER BJWCH Comment:Testing performed by : [place] [address], [address] [place] [address] Basophil abs 0.03 0.00 - 0.10 K/cumm CERNER BJWCH Comment:Testing performed by : [place] [address], [place] [address] Neutrophil pct 75.9 % CERNER BJWCH Comment: Interpretive Data Percent cell count reference ranges are not reported, since discordance with absolute values may lead to misinterpretation of CBC data. Current Interpretive Data was last revised on 2017. Testing performed by: [place] [address], [address] [place] [address] Imm gran pct 0.2 % CERNER BJWCH Comment: Interpretive Data Percent cell count reference ranges are not reported, since discordance with absolute values may lead to misinterpretation of CBC data. Current Interpretive Data was last revised on 2017. Testing performed by: [place] [address], [address] [place] [address] Lymphocyte pct 13.7 % CERNICHOLE HELM Comment: Interpretive Data Percent cell count reference ranges are not reported, since discordance with absolute values may lead to misinterpretation of CBC data. Current Interpretive Data was last revised on 2017. Testing performed by: [facility], [facility] 2, [address] [place] [address] Monocyte pct 9.2 % CERNICHOLE HELM Comment: Interpretive Data Percent cell count reference ranges are not reported, since discordance with absolute values may lead to misinterpretation of CBC data. Current Interpretive Data was last revised on 2017. Testing performed by: [facility], [facility] 2, [address] [place] [address] Eosinophil pct 0.4 % CERNICHOLE HELM Comment: Interpretive Data Percent cell count reference ranges are not reported, since discordance with absolute values may lead to misinterpretation of CBC data. Current Interpretive Data was last revised on 2017. Testing performed by: [facility], [facility] 2, [address] [place] [address] Basophil pct 0.6 % CERNICHOLE HELM Comment: Interpretive Data Percent cell count reference ranges are not reported, since discordance with absolute values may lead to misinterpretation of CBC data. Current Interpretive Data was last revised on 2017. Testing performed by: [facility], [facility] 2, [address] [place] [address] Blood 04/14/2025 8:09 AM CDT 04/14/2025 8:09 AM CDT us Junaid Cifuentes MD PhD LAB BLOOD ORDERABLES Final Result GORAN BJWCH [address] [facility]. [place] [address] * CBC with auto differential (04/14/2025 8:09 AM CDT) WBC 4.67 3.80 - 9.90 K/cumm Comment:Testing performed by : [facility], [facility] 2, [address] [place] [address] Hgb 13.8 13.0 - 17.5 g/dL CERNER BJWCH Comment:Testing performed by : [facility] 2, [address] [place] [address] Hct 41.9 38.9 - 50.3 % CERNER BJWCH Comment:Testing performed by : [facility] 2, [address], [place] [address] Plt 158 150 - 400 K/cumm CERNER BJWCH Comment:Testing performed by : [place] [address], [address] [place] [address] MPV 12.0 9.1 - 12.3 fL CERNER BJWCH Comment:Testing performed by : [place] [address], [address], [place] [address] RBC 4.75 4.30 - 5.80 M/cumm CERNER BJWCH Comment:Testing performed by : [place] [address], [address] [place] [address] MCV 88.2 81.3 - 96.4 fL CERNER BJWCH Comment:Testing performed by : [facility] 2, [address], [place] [address] MCH 29.1 27.1 - 33.3 pg CERNER BJWCH Comment:Testing performed by : [facility] 2, [address], [place] [address] MCHC 32.9 32.3 - 35.7 g/dL CERNER BJWCH Comment:Testing performed by : [facility] 2, [address] [place] [address] RDW CV 12.3 11.1 - 14.9 % CERNER BJWCH Comment:Testing performed by : [facility] 2, [address] [place] [address] RDW SD 40.3 35.7 - 48.1 fL GORAN HELM Comment:Testing performed by : [facility], [facility] 2, [address] [place] [address] NRBC abs 0.00 0.00 - 0.01 K/cumm GORAN HELM Comment:Testing performed by : [facility], [facility], [address] [place] [address] Blood 04/14/2025 8:09 AM CDT 04/14/2025 8:09 AM CDT Junaid Cifuentes MD PhD LAB BLOOD ORDERABLES Final Result Performing Organization Address City/[facility]/ZIP Co de Phone Number [facility] [address] [facility]. [facility] [place] [id number] * Uric acid (04/14/2025 8:09 AM CDT) Uric acid 3.4 3.0 - 8.0 mg/dL Comment:Testing performed by : [facility], [address] [place] [address] Blood 04/14/2025 8:09 AM CDT 04/14/2025 8:36 AM CDT Junaid Cifuentes MD PhD LAB BLOOD ORDERABLES Final Result Performing Organization Address City/[facility]/ZIP Co de Phone Number [facility] [address] [facility]. [facility] [place] [address] * Triglycerides (04/14/2025 8:09 AM CDT) Triglycerides [...] revised on 2018. Testing performed by: [facility], [address] [place] [address] Blood 04/14/2025 8:09 AM CDT 04/14/2025 8:36 AM CDT us Junaid Cifuentes MD PhD LAB BLOOD ORDERABLES Final Result Performing Organization Address City/[facility]/ZIP Co de Phone Number GORAN YOUSSEFCH [address] [facility]. [place] [address] * (ABNORMAL) PSA diagnostic (04/14/2025 8:09 AM [...] last revised 22. Testing performed by: [facility], [address] [place] [address] Blood 04/14/2025 8:09 AM CDT 04/14/2025 8:36 AM CDT us Junaid Cifuentes MD PhD LAB BLOOD ORDERABLES Final Result Performing Organization Address City/[facility] Co de Phone Number [facility] BJWCH [address] [address] [facility]. [facility] [place] [address] * Phosphorus (04/14/2025 8:09 AM CDT) Pathologist [facility] Phosphorus, pl 3.1 2.3 - 4.5 mg/dL Comment:Testing performed by : [facility], [address] [place] [address] Blood 04/14/2025 8:09 AM CDT 04/14/2025 8:36 AM CDT Junaid Cifuentes MD PhD LAB BLOOD ORDERABLES Final Result GORAN [facility] [address] [facility] [place] [address] * Lactate dehydrogenase (LD) (04/14/2025 8:09 AM CDT) [facility] Lactate dehydrogenase (LDH) 143 100 - 250 Units/L Comment:Testing performed by : [facility], [address] [place] [address] Blood 04/14/2025 8:09 AM CDT 04/14/2025 8:36 AM CDT Junaid Cifuentes MD PhD LAB BLOOD ORDERABLES Final Result Performing Organization Address City/[facility]/ZIP Co de Phone Number GORAN BJWCH [address] [facility] [place] [address] * Gamma GT (04/14/2025 8:09 AM CDT) [facility] GGT 21 10 - 50 Units/L Comment:Testing performed by : [facility], [address] [place] [address] Blood 04/14/2025 8:09 AM CDT 04/14/2025 8:36 AM CDT Junaid Cifuentes MD PhD LAB BLOOD ORDERABLES Final Result [facility] [address] [facility]. [facility] [place] [address] * (ABNORMAL) Creatine kinase (CK), total (04/14/2025 8:09 AM CDT) Pathologist [facility] CK 25(L) 40 - 300 Units/L Comment:Testing performed by : [facility], [address], [place] [address] Blood 04/14/2025 8:09 AM CDT 04/14/2025 8:36 AM CDT us Junaid Cifuentes MD PhD LAB BLOOD ORDERABLES Final Result [facility] [address] [place] [address] * Comprehensive metabolic panel (04/14/2025 8:09 AM CDT) [facility] Sodium 143 135 - 145 mmol/L Comment:Testing performed by : [facility], [address], [place] [address] Potassium, pl 3.9 3.3 - 4.9 mmol/L CERNER BJWCH Comment:Testing performed by : [facility], [address], [place] [address] Chloride 104 97 - 110 mmol/L CERNER BJWCH Comment:Testing performed by : [facility], [address], [place] [address] CO2 30 22 - 32 mmol/L CERNER BJWCH Comment:Testing performed by : [facility], [address], [place] [address] Anion gap 9 2 - 15 mmol/L CERNER BJWCH Comment:Testing performed by : [facility], [address], [place] [address] BUN 16 6 - 25 mg/dL CERNER BJWCH Comment:Testing performed by : [facility], [address], [place] [address] Creatinine 0.80 0.80 - 1.30 mg/dL CERNER BJWCH Comment:Testing performed by : [facility], [address], [place] [address] Glucose 136 70 - 199 mg/dL CERNER [...] last revised 2022. Testing performed by: [facility], [address], [place] [address] Calcium 9.4 8.5 - 10.3 mg/dL CERNER BJWCH Comment:Testing performed by : [facility], [address], [place] [address] Bilirubin, total 0.3 0.1 - 1.2 mg/dL CERNER BJWCH Comment:Testing performed by : [facility], [address], [place] [address] Protein, pl 6.7 6.5 - 8.5 g/dL CERNER BJWCH Comment:Testing performed by : [facility], [address], [place] [address] Albumin 4.3 3.5 - 5.0 g/dL CERNER BJWCH Comment:Testing performed by : [facility], [address], [place] [address] Alk phos 72 40 - 130 Units/L CERNER BJWCH Comment:Testing performed by : [facility], [address], [place] [address] ALT 16 7 - 55 Units/L CERNER BJWCH Comment:Testing performed by : [facility], [address], [place] [address] AST 23 10 - 50 Units/L CERNER BJWCH Comment:Testing performed by : [facility], [address], [place] [address] Blood 04/14/2025 8:09 AM CDT 04/14/2025 8:36 AM CDT us Junaid Cifuentes MD PhD LAB BLOOD ORDERABLES Final Result [facility] [address] [facility]. Department [place] [address] * NM Bone Imaging Whole Body (04/08/2025 [...] male with prostate cancer diagnosed in 2009 (Rainbow 4+3) status post radical prostatectomy, radiation and [...] Electronically signed by: Jose Manuel Osorio M.D. Junaid Cifuentes MD PhD IMG NM PROCEDURES [...] Yellow Yellow Comment:Testing performed by : [facility], [address] [place] [address] Clarity, ur Clear Clear GORAN HELM Comment:Testing performed by : [facility], [address] [place] [address] Specific gravity, ur >1.030(H) 1.003 - 1.030 GORAN RASHEEDCH Comment:Testing performed by : [facility], [address] [place] [address] pH, urine 5.5 CERNER BJWCH Comment: Interpretive Data U rine pH is affected by diet, medications, systemic acid-base disturbances, and renal tubular function. pH may affect urinary stone formation. For example, urine pH below 6.0 may help reduce the tendency for calcium phosphate stones and pH greater than 6.0 may reduce the tendency for uric acid stone formation. Source: [facility] Current Interpretive Data was last revised on 2017 Testing performed by: [facility], [address], [place] [address] Protein, ur ql 1+(A) Negative CERNER BJWCH Comment:Testing performed by : [facility], [address], [place] [address] Glucose, ur ql Negative Negative CERNER BJWCH Comment:Testing performed by : [facility], [address], [place] [address] Ketones, ur Negative Negative CERNER BJWCH Comment:Testing performed by : [facility], [address], [place] [address] Bilirubin, ur Negative Negative CERNER BJWCH Comment:Testing performed by : [facility], [address], [place] [address] Blood, ur Negative Negative CERNER BJWCH Comment:Testing performed by : [facility], [address], [place] [address] Urobilinogen, ur <2.0 <2.0 mg/dL CERNER BJWCH Comment:Testing performed by : [facility], [address], [place] [address] Nitrite, ur Negative Negative CERNER BJWCH Comment:Testing performed by : [facility], [address], [place] [address] Leukocyte esterase, ur Negative Negative CERNER BJWCH Comment:Testing performed by : [facility], [address], [place] [address] UA reflex comment Reflex to microscopic UA will be performed. CERNER BJWCH Comment:Testing performed by : [facility], [address], [place] [address] Urine 03/24/2025 7:50 AM CDT 03/24/2025 8:20 AM CDT Gladis Savage CHIEF BUILDING INSPECTOR LAB MICROBIOLOGY - GE NERAL ORDERABLES Final Result Performing Organization Address City/[facility]/ZIP Co de Phone Number GORAN HELM [address] Department [place] [address] * (ABNORMAL) Urinalysis, microscopic only (03/24/2025 7:50 AM CDT) WBC, ur 0-5 0 - 5 /HPF Comment:Testing performed by : [facility], [address], [place] [address] RBC, ur 6-10(A) 0 - 2 /HPF GORAN BJWCH Comment:Testing performed by : [facility], [address], [place] [address] Epithelial cells, squamous, ur 1-5 0 - 5 /HPF GORAN BJWCH Comment:Testing performed by : [facility], [address], [place] [address] Mucous, ur Present(A) GORAN BJWESTEBAN Comment:Testing performed by : [facility], [address], [place] [address] Calcium oxalate crystals, ur 2+(A) GORAN BJWCH Comment:Testing performed by : [facility], [address], [place] [address] Culture Reflex Comment Reflex conditions for urine culture (WBC >10) not met. GORAN BJWCH Comment:Testing performed by : [facility], [address], [place] [address] Urine 03/24/2025 7:50 AM CDT 03/24/2025 8:20 AM CDT Gladis Savage CHIEF BUILDING INSPECTOR LAB URINE ORDERABLES Final Result Performing Organization Address City/[facility] Co de Phone Number GORAN RASHEEDCH [address] [place] [address] * eGFR (03/24/2025 7:45 AM CDT) eGFR [...] last reviewed 2021. Testing performed by: [facility], [address] [place] [address] Blood 03/24/2025 7:45 AM CDT 03/24/2025 8:18 AM CDT Gladis Savage NP LAB BLOOD ORDERABLES Final Result Performing Organization Address City/State/[facility] Co de Phone Number [facility] [address] [facility] Department [place] [address] * (ABNORMAL) Differential, auto (03/24/2025 7:45 AM CDT) Pathologist [facility] Neutrophil abs 2.44 1.50 - 6.50 K/cumm Comment:Testing performed by : [facility], [facility], [address] [place] [address] Imm gran abs 0.01 0.00 - 0.10 K/cumm GORAN HELM Comment:Testing performed by : [facility], [facility] 2, [address] [place] [address] Lymphocyte abs 0.55(L) 0.80 - 3.30 K/cumm CERNER BJWCH Comment:Testing performed by : [facility], [facility] 2, [address] [place] [address] Monocyte abs 0.33 0.20 - 0.80 K/cumm CERNER BJWCH Comment:Testing performed by : [facility], [facility] 2, [address] [place] [address] Eosinophil abs 0.03 0.00 - 0.50 K/cumm CERNER BJWCH Comment:Testing performed by : [facility], [facility] 2, [address] [place] [address] Basophil abs 0.02 0.00 - 0.10 K/cumm CERNER BJWCH Comment:Testing performed by : [facility], [facility] 2, [address] [place] [address] Neutrophil pct 72.1 % CERNER BJWCH Comment: Interpretive Data Percent cell count reference ranges are not reported, since discordance with absolute values may lead to misinterpretation of CBC data. Current Interpretive Data was last revised on 2017. Testing performed by: [facility], [facility] 2, [address] [place] [address] Imm gran pct 0.3 % CERNER BJWCH Comment: Interpretive Data Percent cell count reference ranges are not reported, since discordance with absolute values may lead to misinterpretation of CBC data. Current Interpretive Data was last revised on 2017. Testing performed by: [facility], [facility] 2, [address] [place] [address] Lymphocyte pct 16.3 % CERNER BJWCH Comment: Interpretive Data Percent cell count reference ranges are not reported, since discordance with absolute values may lead to misinterpretation of CBC data. Current Interpretive Data was last revised on 2017. Testing performed by: [facility] 2, [address] [place] [address] Monocyte pct 9.8 % CERNER BJWCH Comment: Interpretive Data Percent cell count reference ranges are not reported, since discordance with absolute values may lead to misinterpretation of CBC data. Current Interpretive Data was last revised on 2017. Testing performed by: [facility], [facility] 2, [address] [place] [address] Eosinophil pct 0.9 % GORAN HELM Comment: Interpretive Data Percent cell count reference ranges are not reported, since discordance with absolute values may lead to misinterpretation of CBC data. Current Interpretive Data was last revised on 2017. Testing performed by: [facility], [facility] 2, [address] [place] [address] Basophil pct 0.6 % GORAN HELM Comment: Interpretive Data Percent cell count reference ranges are not reported, since discordance with absolute values may lead to misinterpretation of CBC data. Current Interpretive Data was last revised on 2017. Testing performed by: [facility] 2, [address] [place] [address] Blood 03/24/2025 7:45 AM CDT 03/24/2025 7:45 AM CDT [facility] LAB BLOOD ORDERABLES Final Result Performing Organization Address City/State/[facility] Co de Phone Number [facility] [address] [facility]. [place] [address] * (ABNORMAL) CBC with auto differential (03/24/2025 7:45 AM CDT) WBC 3.38(L) 3.80 - 9.90 K/cumm Comment:Testing performed by : [facility], [facility] 2, [address] [place] [address] Hgb 13.0 13.0 - 17.5 g/dL GORAN HELM Comment:Testing performed by : [facility] 2, [address] [place] [address] Hct 39.4 38.9 - 50.3 % CERNER BJWCH Comment:Testing performed by : [place] [address], [address] [place] [address] Plt 165 150 - 400 K/cumm CERNER BJWCH Comment:Testing performed by : [place] [address], [address] [place] [address] MPV 11.4 9.1 - 12.3 fL CERNER BJWCH Comment:Testing performed by : [place] [address], [address] [place] [address] RBC 4.45 4.30 - 5.80 M/cumm CERNER BJWCH Comment:Testing performed by : [place] [address], [address] [place] [address] MCV 88.5 81.3 - 96.4 fL CERNER BJWCH Comment:Testing performed by : [place] [address] [place] [address] MCH 29.2 27.1 - 33.3 pg CERNER BJWCH Comment:Testing performed by : [address] [place] [address] MCHC 33.0 32.3 - 35.7 g/dL CERNER BJWCH Comment:Testing performed by : [place] [address] [place] [address] RDW CV 12.5 11.1 - 14.9 % CERNER BJWCH Comment:Testing performed by : [address] [place] [address] RDW SD 41.1 35.7 - 48.1 fL CERNER BJWCH Comment:Testing performed by : [place] [address], [address] [place] [address] ANC Prelim 2.44 1.50 - 6.50 K/cumm CERNER BJWCH Comment: Interpretive Data The rapid ANC is a preliminary automated count and may vary from the final ANC (Neut Abs) reported in the WBC differential that follows. Current interpretive data was last revised 2024. Testing performed by: [facility], [facility] 2, [address], [place] [address] Blood 03/24/2025 7:45 AM CDT 03/24/2025 7:45 AM CDT Gladis Savage NP LAB BLOOD ORDERABLES Final Result Performing Organization Address City/[facility] Co de Phone Number GORAN YOUSSEFCH [address] [facility]. [facility] [place] [address] * Uric acid (03/24/2025 7:45 AM CDT) Uric acid 3.5 3.0 - 8.0 mg/dL Comment:Testing performed by : [facility], [address] [place] [address] Blood 03/24/2025 7:45 AM CDT 03/24/2025 8:18 AM CDT Gladis Savage NP LAB BLOOD ORDERABLES Edited Result - Final Performing Organization Address [facility] de Phone Number GORAN YOUSSEFCH [address] [facility]. [facility] [place] [address] * Triglycerides (03/24/2025 7:45 AM CDT) Triglycerides [...] revised on 2018. Testing performed by: [facility], [address] [place] [address] Blood 03/24/2025 7:45 AM CDT 03/24/2025 8:18 AM CDT [facility] LAB BLOOD ORDERABLES Edited Result - Final Performing Organization Address City/[facility]/ZIP Co de Phone Number GORAN YOUSSEFCH [address] [facility] [place] [address] * (ABNORMAL) PSA diagnostic (03/24/2025 7:45 AM [...] last revised 22. Testing performed by: [facility], [address] [place] [address] Blood 03/24/2025 7:45 AM CDT 03/24/2025 8:18 AM CDT [facility] LAB BLOOD ORDERABLES Final Result Performing Organization Address [facility] Co de Phone Number GORAN YOUSSEFCH [address] [facility] [place] [address] * Phosphorus (03/24/2025 7:45 AM CDT) Phosphorus, pl 3.2 2.3 - 4.5 mg/dL Comment:Testing performed by : [facility], [address] [place] [address] Blood 03/24/2025 7:45 AM CDT 03/24/2025 8:18 AM CDT [facility] LAB BLOOD ORDERABLES Edited Result - Final Performing Organization Address City/[facility]/ZIP Co de Phone Number GORAN YOUSSEFCH [address] [facility] [place] [address] * Lactate dehydrogenase (LD) (03/24/2025 7:45 AM CDT) Lactate dehydrogenase (LDH) 128 100 - 250 Units/L Comment:Testing performed by : [facility], [address] [address] Blood 03/24/2025 7:45 AM CDT 03/24/2025 8:18 AM CDT [facility] LAB BLOOD ORDERABLES Edited Result - Final Performing Organization Address [facility]/ZIP Co de Phone Number GORAN BJWCH [address] [place] [address] * Gamma GT (03/24/2025 7:45 AM CDT) GGT 17 10 - 50 Units/L Comment:Testing performed by : [facility], [address], [place] [address] Blood 03/24/2025 7:45 AM CDT 03/24/2025 8:18 AM CDT [facility] LAB BLOOD ORDERABLES Edited Result - Final GORAN BJWCH [address] [place] [address] * (ABNORMAL) Creatine kinase (CK), total (03/24/2025 7:45 AM CDT) CK 22(L) 40 - 300 Units/L Comment:Testing performed by : [facility], [address], [place] [address] Blood 03/24/2025 7:45 AM CDT 03/24/2025 8:18 AM CDT Gladis Savage NP LAB BLOOD ORDERABLES Edited Result - Final [facility] [address] [place] [address] * (ABNORMAL) Comprehensive metabolic panel (03/24/2025 7:45 AM CDT) Sodium 143 135 - 145 mmol/L Comment:Testing performed by : [facility], [address], [place] [address] Potassium, pl 3.9 3.3 - 4.9 mmol/L GORAN HELM Comment:Testing performed by : [facility], [address], [place] [address] Chloride 105 97 - 110 mmol/L GORAN HELM Comment:Testing performed by : [facility], [address], [place] [address] CO2 26 22 - 32 mmol/L GORAN HELM Comment:Testing performed by : [facility], [address] [place] [address] Anion gap 12 2 - 15 mmol/L GORAN HELM Comment:Testing performed by : [facility], [address], [place] [address] BUN 14 6 - 25 mg/dL GORAN HELM Comment:Testing performed by : [facility], [address], [place] [address] Creatinine 0.76(L) 0.80 - 1.30 mg/dL GORAN RASHEEDCH Comment:Testing performed by : [facility], [address], [place] [address] Glucose 145 70 - 199 mg/dL GORAN YOUSSEFWCH Comment: Interpretive Data Fasting glucose >/= 126 [...] last revised 2022. Testing performed by: [facility], [address], [place] [address] Calcium 9.5 8.5 - 10.3 mg/dL CERNER BJWCH Comment:Testing performed by : [facility], [address], [place] [address] Bilirubin, total 0.3 0.1 - 1.2 mg/dL CERNER BJWCH Comment:Testing performed by : [facility], [address], [place] [address] Protein, pl 6.6 6.5 - 8.5 g/dL CERNER BJWCH Comment:Testing performed by : [facility], [address], [place] [address] Albumin 4.1 3.5 - 5.0 g/dL CERNER BJWCH Comment:Testing performed by : [facility], [address], [place] [address] Alk phos 67 40 - 130 Units/L CERNER BJWCH Comment:Testing performed by : [facility], [address], [place] [address] ALT 15 7 - 55 Units/L CERNER BJWCH Comment:Testing performed by : [facility], [address], [place] [address] AST 20 10 - 50 Units/L CERNER BJWCH Comment:Testing performed by : [facility], [address], [place] [address] Blood 03/24/2025 7:45 AM CDT 03/24/2025 8:18 AM CDT us Gladis Alexy Savage NP LAB BLOOD ORDERABLES Edited Result - Final GORAN BJWCH [address] [place] [address] * PET/CT Prostate Cancer PSMA Skull to [...] obtained. The study was interpreted on the [employer] workstation. The total scanned area was skull [...] obtained. The study was interpreted on the [employer] workstation. The total scanned area was skull [...] signed by: Selwyn Macedo M.D. Gladis Savage CHIEF BUILDING INSPECTOR IMG PET PROCEDURES Fi nal Result from Last 3 Months Insurance MEDICARE [facility] MEDICARE [facility] MEDICARE [facility] Care Teams Turpentine Distiller Relationship Specialty Start Date End Date Arvind Castellanos MD PCP - General 12/24/17 Patrick Perez MD [address] [address] Urology 07/27/21
--- OUTSIDE RECORDS SUMMARY | 2025-06-14 13:16 | XMS_ITS | Encounter Summary ---
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
--- OUTSIDE RECORDS SUMMARY | 2025-06-14 13:16 | XMS_ITS ---
Author Organization [facility] Address [address] [place] [address] Care Team Providers Care Raimann Machine Operator Name Role Phone Arvind Castellanos MD Primary Care Provider [phone] Patrick Perez MD Unavailable [phone] Active Problems Problem Noted Date Diagnosed Date [...] - Prostate* Plan Start Date:04/14/2025 Plan Provider:Junaid Cifeuntes MD PhD Linked Problems Prostate cancer (HCC)Seconda [...] Treatment Medications Discontinue Reason Plan Provider Cycles [id number] - [facility] - - [id number] PART 1B DOSE EXPANSION ARM Cohort 11&13(Q3W x 4 induction cycles, Q6W maintenance) - ARX 517 5 04/14/2025 INV-[facility] (/A [id number]) [id number] IVPB in 250 mLINV-[facility] brimonidine 0.2 % (/A [id number])INV -[facility] Systane Complete PF (/A [id number])INV -[facility] Systane Nighttime Lubricant (/A [id number]) Progressive Disease Kemal Guillaume MD 7 of 8 cycles started Sipuleucel-T 14 Day Cycles - Prostate 01/24/2024 05/05/2024 svptabxyfz-I-u actated ringers (PROVENGE) >50 million cell/250 mL [...]
--- OUTSIDE RECORDS SUMMARY | 2025-06-14 13:16 | XMS_ITS | Clinical Summary ---
Author Organization [facility] Address [address] [place] [address] Care Team Providers Care Internal Grinding Machine Operator Name Role Phone Arvind Castellanos MD Primary Care Provider [phone] Allergies Active Allergy Reactions Criticality Noted Date [...] by mouth daily. Active vitamin D2, ergocalciferol, 79037 UNITS capsule Take 50,000 Units by mouth. 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 [employer] Care Teams Internal Grinding Machine Operator Relationship Specialty Start Date End Date Arvind Castellanos MD [address] [place] [address] PCP - General INTERNAL MEDICINE 12/26/21
--- OUTSIDE RECORDS SUMMARY | 2025-06-14 13:16 | XMS_ITS | Clinical Summary ---
Author Organization [facility] Address [address] [place] [address] Phone Care Team Providers Care Eligibility Counselor Name Role Phone Arvind Castellanos MD Primary Care Provider [phone] Allergies Active Allergy Reactions Criticality Noted Date Comments Meperidine Nausea and Vomiting High 04/11/2018 Medications cholecalciferol , vitamin D3, 1,000 unit Take 1,000 Units by mouth daily. Active HYDROcodone-kari taminophen (NORCO) 7.5-325 mg Tablet Take 1 Tablet by mouth every 6 hours as needed for Pain. Active leuprolide acetate (Eligard) 7.5 mg (1 month) Syringe 1 month subcut syringe Inject 7.5 mg by subcutaneous injection one time only. Active OLANZapine (ZyPREXA) 5 mg tablet Take 5 mg by mouth daily at bedtime. 5 09/23/19 26 Active pantoprazole (PROTONIX) 40 mg Tablet, Delayed Release (E.C.) Take 40 mg by mouth 2 times daily. 5 Active predniSONE (DELTASONE) 10 mg tablet Take 10 mg by mouth daily. 5 Active prochlorperazin e maleate (COMPAZINE) 10 mg tablet Take 10 mg by mouth every 6 hours as needed for Nausea. 5 Active metoprolol succinate (Toprol XL) 25 mg Extended Release 24 hour tablet Take 1 Tablet (25 mg) by mouth daily. 30 Tablet 1 06/11/2025 11:57 AM CDT 5 Active solifenacin (VESICARE) 5 mg Tablet Take 1 Tablet (5 mg) by mouth daily. 30 Tablet 1 06/11/2025 11:57 AM CDT 5 Active lisinopriL (PRINIVIL) 20 mg tablet Starting 06/08/25: Take 1 Tablet (20 mg) by mouth daily. 30 Tablet 1 06/11/2025 11:57 AM CDT 5 Active levoFLOXacin (LEVAQUIN) 500 mg tablet Take 1 Tablet (500 mg) by mouth daily for 6 days. 6 Tablet 06/11/2025 11:57 AM CDT 5 06/17/20 Active amLODIPine (NORVASC) 5 mg tablet Starting 06/12/25, Take 1 Tablet (5 mg) by mouth daily. 30 Tablet 06/11/2025 11:57 AM CDT 5 Active Active Problems Problem Noted Date Diagnosed Date History of prostate cancer 06/10/2025 Difficult Dickerson catheter placement 06/10/2025 Protein-calorie malnutrition, severe 06/09/2025 Bladder mass 06/09/2025 Type 2 myocardial infarction 06/08/2025 Complicated UTI (urinary tract infection) 2024 Acute cystitis with hematuria 06/08/2025 Urinary retention 06/08/2025 Absence of bladder continence 06/07/2025 Acute urinary retention 06/07/2025 Gross hematuria 06/05/2025 Neutropenic fever 06/04/2025 Typical atrial flutter 06/04/2025 Malignant neoplasm of prostate GERD (gastroesophageal reflux disease) Encounters Date Type Department Care Team Description 06/11/2025 Telephone [facility] Heart and Vascular - [address] [facility] [address] [address] [facility] [address] [place] [address] Franc Wyman MD Needs Appointment 06/10/2025 3:58 PM CDT - 06/10/2025 5:11 PM CDT Surgery [facility] Operating Room [address] [place] [address] Jessie Posada MD CYSTO CLOT EVACUATION BIPOLAR BLADDER FULGURATION AND URETHRAL DILATION 06/10/2025 3:42 PM CDT Anesthesia Event [facility] Operating Room [address] [place] [address] Aliyah Bone MD Fitzer, Julia N, HUSSEIN 06/09/2025 External Device Data STL ABSTRACTION Provider, Abstract 06/08/2025 External Device Data STL ABSTRACTION Provider, Abstract 06/08/2025 External Device Data STL ABSTRACTION Provider, Abstract 06/04/2025 4:42 AM CDT - 06/11/2025 11:47 AM CDT Hospital Encounter [facility] Cardiovascular Progressive Care unit [address] [place] [address] Marco Antonio Gallego MD Amin, Birju V., Bridget Santiago MD Michelson, Randal Cerf, DO Boone, Amanda Cherie, MD Neutropenic fever Discharge Disposition: Home or Self Care 06/04/2025 Travel from Last 3 Months Family History Medical History Relation Name Comments Lung Cancer Father Stroke Mother Relation Name Status Comments Father Mother Social History Tobacco Use Types Packs/Day Years Used Date Smoking Tobacco: Never Smokeless Tobacco: Never Tobacco Cessation:Counseling Given: Not Answered Alcohol Use Standard Drinks/Week Comments Never 0 (1 standard drink = 0.6 oz pur e alcohol) Feeling Safe Answer Date Recorded Are you in a relationship wi th someone who hurts you emotionally and/or physically? No 06/10/2025 Food Insecurity Answer Date Recorded Patient needs follow up regardin 06/04/2025 Transportation Needs Answer Date Record ed Patient needs follow up regardin 06/04/2025 Utility Needs Answer Date Recorded Patient needs follow up regardin 06/04/2025 Sex and Gender Information Value Date Recorded Sex Assigned at Not on file Legal Sex Male 11:23 PM CDT Gender Identity Not on file Sexual Orientation Not on file Last Filed Vital Signs Vital Sign Reading Time Taken Comments Blood Pressure 120/81 06/11/2025 4:44 AM CDT Pulse 66 06/11/2025 4:44 AM CDT Temperature 36.5 C (97.7 F) 06/11/2025 4:44 AM CDT Respiratory Rate 19 06/11/2025 4:44 AM CDT Oxygen Saturation 98% 06/11/2025 9:25 AM CDT Inhaled Oxygen Concentration - - Weight 53.1 kg (117 lb) 06/11/2025 4:44 AM CDT Height 180.3 cm (5' 11) 06/04/2025 10:15 AM CDT Body Mass Index 16.32 06/04/2025 10:15 AM CDT Plan of Treatment Health Maintenance Due Date Last Done Comments Traditional Medicare (ACO) Annual Wellness Visit 04/30 COLORECTAL SCREENING 2000 Colorectal Cancer Screening 2000 FIT-DNA Q 3 years 2000 FIT/FOBT Q 1 year 2000 Flex Sig/CT Colonography Q 5 years 2000 PNEUMOCOCCAL VACCINE 50+ YEARS (1 of 1 - PCV) 04/30/20 05 ZOSTER VACCINE (1 of 2) 2005 DTAP/TDAP/TD VACCINES (2 - Td or Tdap) 08/12/2024 INFLUENZA VACCINE (#1) 2025 RSV VACCINE (60+ or ) (1 - 1-dose 75+ series) 2030 Procedures Procedure Name Priority Date/Time Associated Diagnosis Comments TELEMETRY REPORT 06/11/2025 2:56 PM CDT TELEMETRY REPORT 06/11/2025 2:29 PM CDT TELEMETRY REPORT 06/11/2025 1:51 PM CDT CBC WITHOUT DIFFERENTIAL Routine 06/11/2025 4:50 AM CDT MAGNESIUM LEVEL Routine 06/11/2025 4:50 AM CDT RENAL FUNCTION PANEL Routine 06/11/2025 4:50 AM CDT TYPE AND SCREEN Stat 06/10/2025 5:24 AM CDT CBC WITHOUT DIFFERENTIAL Routine 06/10/2025 5:24 AM CDT MAGNESIUM LEVEL Routine 06/10/2025 5:24 AM CDT RENAL FUNCTION PANEL Routine 06/10/2025 5:24 AM CDT URINE CULTURE Routine 06/09/2025 6:36 PM CDT TELEMETRY REPORT 06/09/2025 11:3 5 AM CDT TELEMETRY REPORT 06/09/2025 11:0 9 AM CDT TELEMETRY REPORT 06/09/2025 10:3 0 AM CDT TELEMETRY REPORT 06/09/2025 10:0 4 AM CDT TELEMETRY REPORT 06/09/2025 9:32 AM CDT TELEMETRY REPORT 06/09/2025 9:20 AM CDT TELEMETRY REPORT 06/09/2025 8:51 AM CDT PTT Routine 06/09/2025 6:53 AM CDT UNFRACTIONATED HEPARIN ACTIVITY Timed Study 06/09/2025 6:53 AM CDT TROPONIN Routine 06/09/2025 5:15 AM CDT CBC WITHOUT DIFFERENTIAL Routine 06/09/2025 5:15 AM CDT MAGNESIUM LEVEL Routine 06/09/2025 5:15 AM CDT RENAL FUNCTION PANEL Routine 06/09/2025 5:15 AM CDT EXTRA TUBE (URINE LÓPEZ) Routine 06/08/2025 4:25 PM CDT SODIUM, RANDOM URINE Routine 06/08/2025 4:25 PM CDT CREATININE, RANDOM URINE Routine 06/08/2025 4:25 PM CDT URINALYSIS W/REFLEX MICROSCOPIC Routine 06/08/2025 4:25 PM CDT STREPTOCOCCUS PNEUMONIAE ANTIGEN Routine 06/08/2025 4:25 PM CDT TELEMETRY REPORT 06/08/2025 3:27 PM CDT US RENAL AND BLADDER Stat 06/08/2025 11:21 AM CDT TROPONIN 6 HR, 5TH GEN Timed Study 06/08/2025 5:48 AM CDT MAGNESIUM LEVEL Routine 06/08/2025 5:48 AM CDT RENAL FUNCTION PANEL Routine 06/08/2025 5:48 AM CDT CBC WITH DIFFERENTIAL Routine 06/08/2025 5:48 AM CDT TROPONIN 2 HR, 5TH GEN Timed Study 06/07/2025 9:14 PM CDT TROPONIN BASELINE, 5TH GEN Stat 06/07/2025 8:55 PM CDT MAGNESIUM LEVEL Stat 06/07/2025 8:55 PM CDT BASIC METABOLIC PANEL Stat 06/07/2025 8:55 PM CDT HEMOGLOBIN AND HEMATOCRIT Stat 06/07/2025 8:55 PM CDT EKG 12-LEAD Stat 06/07/2025 7:56 PM CDT HEMOGLOBIN AND HEMATOCRIT Routine 06/07/2025 5:34 AM CDT COMPREHENSIVE METABOLIC PANEL Routine 06/06/2025 5:30 AM CDT CBC WITH DIFFERENTIAL Routine 06/06/2025 5:30 AM CDT URINE CULTURE Routine 06/05/2025 5:27 PM CDT LEGIONELLA ANTIGEN, URINE Routine 06/05/2025 5:27 PM CDT EXTRA TUBE (URINE LÓPEZ) Routine 06/05/2025 4:47 PM CDT CREATININE, RANDOM URINE Routine 06/05/2025 4:47 PM CDT SODIUM, RANDOM URINE Routine 06/05/2025 4:47 PM CDT URINALYSIS W/REFLEX MICROSCOPIC Routine 06/05/2025 4:47 PM CDT RESPIRATORY PATHOGEN PCR PANEL Routine 06/05/2025 11:35 AM CDT PROTIME-INR Routine 06/05/2025 5:43 AM CDT TYPE AND SCREEN Routine 06/05/2025 3:30 AM CDT C-REACTIVE PROTEIN Routine 06/05/2025 3: 30 AM CDT PROCALCITONIN Routine 06/05/2025 3:30 AM CDT DIFFERENTIAL, MANUAL Routine 06/05/2025 3:30 AM CDT COMPREHENSIVE METABOLIC PANEL Routine 06/05/2025 3:30 AM CDT CBC WITH DIFFERENTIAL Routine 06/05/2025 3:30 AM CDT DIFFERENTIAL, MANUAL Stat 06/04/2025 9:27 PM CDT BASIC METABOLIC PANEL Stat 06/04/2025 9:27 PM CDT CBC WITH DIFFERENTIAL Stat 06/04/2025 9:[address] CHEST ABDOMEN PELVIS W CONT Stat 06/04/2025 7:27 PM CDT BLOOD CULTURE Stat 06/04/2025 4:21 PM CDT BLOOD CULTURE Stat 06/04/2025 4:21 PM CDT ECHO COMPLETE Pending Discharge 06/04/2025 12:10 PM CDT EKG 12-LEAD Routine 06/04/2025 7:27 AM CDT TROPONIN Routine 06/04/2025 7:06 AM CDT DIFFERENTIAL, MANUAL Routine 06/04/2025 7:06 AM CDT COMPREHENSIVE METABOLIC PANEL Routine 06/04/2025 7:06 AM CDT CBC WITH DIFFERENTIAL Routine 06/04/2025 7:06 AM CDT LACTIC ACID Stat 06/04/2025 7:05 AM CDT X-RAY PRIOR STUDY Routine 06/03/2025 7: 35 PM CDT from Last 3 Months Results * TELEMETRY REPORT (06/11/2025 2:56 PM CDT) Only the most recent of11 resultswithin the time period is included. us Provider Scanning ECG ORDERABLES Final Result * (ABNORMAL) CBC WITHOUT DIFFERENTIAL (06/11/2025 4:50 AM CDT) Only the most recent of3 resultswithin the time period is included. WBC 12.2(H) 4.0 - 9.8 K/uL 06/11/2025 5:02 AM CDT [facility] RBC 4.18(L) 4.50 - 5.40 M/uL 06/11/2025 5:02 AM CDT [facility] HEMOGLOBIN 12.5(L) 13.6 - 16.5 g/dL 06/11/2025 5:02 AM CDT [facility] HEMATOCRIT 36.3(L) 40.0 - 48.0 % 06/11/2025 5:02 AM CDT [facility] MCV 86.8 82.0 - 99.0 fL 06/11/2025 5:02 AM CDT [facility] MCH 29.9 27.2 - 32.6 pg 06/11/2025 5:02 AM CDT [facility] MCHC 34.4 31.5 - 35.5 g/dL 06/11/2025 5:02 AM CDT [facility] PLATELETS 313 140 - 350 K/uL 06/11/2025 5:02 AM CDT [facility] MPV 10.7 9.3 - 12.4 fL 06/11/2025 5:02 AM CDT [facility] RDW 12.5 11.5 - 14.5 % 06/11/2025 5:02 AM CDT [facility] RDW-STDEV 39.7 37.1 - 48.7 fL 06/11/2025 5:02 AM CDT [facility] Blood Venipuncture / Unknown 06/11/2025 4:50 AM CDT 06/11/2025 4:52 AM CDT [facility] DO HEMATOLOGY ORDERABLES F inal Result Performing Organization Address City/[facility]/ZIP Co de Phone Number [facility] CLIA# [id number] [place] [address] * MAGNESIUM LEVEL (06/11/2025 4:50 AM CDT) Only the most recent of5 resultswithin the time period is included. MAGNESIUM 1.7 1.6 - 2.6 mg/dL 06/11/2025 5:26 AM CDT [facility] Blood Venipuncture / Unknown 06/11/2025 4:50 AM CDT 06/11/2025 4:52 AM CDT Andrez Ashley Cyndee DO CHEMISTRY ORDERABLES Fi nal Result Performing Organization Address City/[facility]/ZIP Co de Phone Number [facility] CLIA# [id number] [place] [address] * (ABNORMAL) RENAL FUNCTION PANEL (06/11/2025 4:50 AM CDT) Only the most recent of4 resultswithin the time period is included. SODIUM 142 136 - 145 mmol/L 06/11/2025 5:26 AM CDT [facility] POTASSIUM 4.3 3.4 - 5.1 mmol/L 06/11/2025 5:26 AM CDT [facility] CHLORIDE 104 98 - 107 mmol/L 06/11/2025 5:26 AM CDT [facility] CO2 28 22 - 29 mmol/L 06/11/2025 5:26 AM T [facility] CALCIUM 9.1 8.6 - 10.4 mg/dL 06/11/2025 5:26 AM T [facility] BUN 24(H) 6 - 20 mg/dL 06/11/2025 5:26 AM T [facility] CREATININE 0.79 0.67 - 1.17 mg/dL 06/11/2025 5:26 AM T [facility] Comment:The GFR result is no t clinically significant on patients <18 or >70 years of age. GLUCOSE 135(H) 74 - 99 mg/dL 06/11/2025 5:26 AM T [facility] ALBUMIN 3.5 3.5 - 5.2 g/dL 06/11/2025 5:26 AM [facility] 3.4 2.5 - 4.5 mg/dL 06/11/2025 5:26 AM T [facility] GFR >60 mL/min/1.7 3 sq meter 06/11/2025 5:26 AM T [facility] Comment:eGFR calculated with 2020 CKD-EPI equation. Vegetarian diet, extremely high or low muscle mass, and may affect results. Cystatin C with Glomerular Filtration Rate is a suitable alternative for these patients. ANION GAP 10 8 - 16 mmol/L 06/11/2025 5:26 AM T [facility] Blood Venipuncture / Unknown 06/11/2025 4:50 AM CDT 06/11/2025 4:52 AM CDT us Andrez Cotter DO CHEMISTRY ORDERABLES Fi nal Result [facility] CLIA# [id number] [place] [address] * TYPE AND SCREEN (06/10/2025 5:24 AM CDT) Only the most recent of2 resultswithin the time period is included. ABO GROUP B 06/10/2025 6:31 AM CDT [facility] RH (D) TYPE Positive 06/10/2025 6:31 AM CDT [facility] ANTIBODY SCREEN Negative 06/10/2025 6:31 AM CDT [facility] Blood Venipuncture / Unknown 06/10/2025 5:24 AM CDT 06/10/2025 5:37 AM CDT Nicholas Wall MD BLOOD BANK ORDERABLES Edited Res ult - Final [facility] CLIA# [id number] [place] [address] * URINE CULTURE (06/09/2025 6:36 PM CDT) Only the most recent of2 resultswithin the time period is included. CULTURE No growth at 24 hours 06/11/2025 8:02 AM CDT [facility] Urine URINE SPECIMEN OBTAINED BY CLEAN CATCH PROCEDURE / Unknown Collection / Unknown 06/09/2025 6:36 PM CDT 06/09/2025 8:10 PM CDT Selwyn Valencia DNP MICROBIOLOGY - GENERAL ORDERABLES Final Result [facility] CLIA# [id number] [address] [place] [address] * UNFRACTIONATED HEPARIN MONITORING (06/09/2025 6:53 AM CDT) ANTI-XA UNFRAC HEP <0.10 See Interpreta tion. IU/mL 06/09/2025 7:36 AM CDT [facility] Blood Venipuncture / Unknown 06/09/2025 6:53 AM CDT 06/09/2025 7:09 AM CDT Narrative [facility] - 06/09/2025 7:36 AM CDT Unfractionated Heparin Therapeutic Range: 0.30-0.70 IU/ml Refer to pharmacy adult heparin protocol for further recommendation. The reference range for this test is specific to the anticoagulant and is not appropriate for monitoring patients on a DOAC protocol. Ulices Rizo NP HEMATOLOGY ORDERABLES Final Res ult Performing Organization Address City/[facility]/ZIP Co de Phone Number [facility] CLIA# [id number] [place] [address] * PTT (06/09/2025 6:53 AM CDT) PTT 26.5 23.1 - 37.1 seconds 06/09/2025 7:36 AM CDT [facility] Blood Venipuncture / Unknown 06/09/2025 6:53 AM CDT 06/09/2025 7:09 AM CDT Ulices Rizo NP HEMATOLOGY ORDERABLES Final Res ult Performing Organization Address [facility] de Phone Number [facility] CLIA# [id number] [place] [address] * (ABNORMAL) TROPONIN (06/09/2025 5:15 AM CDT) Only the most recent of2 resultswithin the time period is included. TROPONIN T, 5TH GEN 271(HH) <=15 ng/L 06/09/2025 6:22 AM CDT [facility] Blood Venipuncture / Unknown 06/09/2025 5:15 AM CDT 06/09/2025 5:29 AM CDT Narrative [facility] - 06/09/2025 6:22 AM CDT Troponin elevated. Andrez Cotter DO CHEMISTRY ORDERABLES Fi nal Result Performing Organization Address City/[facility]/ZIP Co de Phone Number [id number] [address] [place] [address] * EXTRA TUBE (URINE LÓPEZ) (06/08/2025 4:25 PM CDT) Only the most recent of2 resultswithin the time period is included. Urine URINE SPECIMEN OBTAINED BY CLEAN CATCH PROCEDURE / Unknown Collection / Unknown 06/08/2025 4:25 PM CDT 06/08/2025 4:41 PM CDT Andrez Cotter DO URINE ORDERABLES Final Result Performing Organization Address [facility] Co de Phone Number [facility] CLIA# [id number] [address] [place] [address] * STREPTOCOCCUS PNEUMONIAE ANTIGEN (06/08/2025 4:25 PM CDT) STREPTOCOCCUS PNEUMONIAE AG NOT DETECTED Not Detected 06/08/2025 9:44 PM CDT [facility] Urine URINE SPECIMEN OBTAINED BY CLEAN CATCH PROCEDURE / Unknown Collection / Unknown 06/08/2025 4:25 PM CDT 06/08/2025 4:40 PM CDT Selwyn Valencia DNP MICROBIOLOGY - GENERAL ORDERABLES Final Result Performing Organization Address [facility] Co de Phone Number [facility] [id number] [address] [facility] [place] [address] * SODIUM, RANDOM URINE (06/08/2025 4:25 PM CDT) Only the most recent of2 resultswithin the time period is included. SODIUM, URINE 89 mmol/L 06/08/2025 5:20 PM CDT [facility] Comment:Reference range not established Urine URINE SPECIMEN OBTAINED BY CLEAN CATCH PROCEDURE / Unknown Collection / Unknown 06/08/2025 4:25 PM CDT 06/08/2025 4:41 PM CDT [facility] Ashley Cyndee DO URINE ORDERABLES Final Result Performing Organization Address [facility] Co de Phone Number [facility]# [id number] [address] [place] [address] * CREATININE, RANDOM URINE (06/08/2025 4:25 PM CDT) Only the most recent of2 resultswithin the time period is included. CREATININE, URINE 87.6 40.0 - 278.0 mg/dL 06/08/2025 5:20 PM CDT [facility] Comment:Reference Range vari es with fluid intake and diet. Urine URINE SPECIMEN OBTAINED BY CLEAN CATCH PROCEDURE / Unknown Collection / Unknown 06/08/2025 4:25 PM CDT 06/08/2025 4:41 PM CDT [facility] Ashley Cyndee DO URINE ORDERABLES Final Result Performing Organization Address [facility] Co de Phone Number [facility]# [id number] [place] [address] * (ABNORMAL) URINALYSIS WITH REFLEX MICROSCOPIC (06/08/2025 4:25 PM CDT) Only the most recent of2 resultswithin the time period is included. COLOR UA Claudette(A) Pale to Dark Yellow 06/08/2025 4:56 PM CDT [facility] CLARITY UA Cloudy(A) Clear 06/08/2025 4:56 PM CDT [facility] SPECIFIC GRAVITY UA 1.013 1.003 - 1.035 06/08/2025 4:56 PM CDT [facility] PH UA 6.0 5.0 - 8.0 06/08/2025 4:56 PM CDT [facility] LEUKOCYTE ESTERASE UA Negative Negative 06/08/2025 4:56 PM CDT [facility] NITRITE UA Negative Negative 06/08/2025 4:56 PM CDT [facility] PROTEIN UA 2+(A) Negative 06/08/2025 4:56 PM CDT [facility] GLUCOSE UA 1+(A) Negative 06/08/2025 4:56 PM CDT [facility] KETONES UA 1+(A) Negative 06/08/2025 4:56 PM CDT [facility] UROBILINOGEN UA Normal <2.0 mg/dL 4:56 PM CDT [facility] BILIRUBIN UA Negative Negative 06/08/2025 4:56 PM CDT [facility] BLOOD UA 2+(A) Negative 06/08/2025 4:56 PM CDT [facility] WBC UA >100(A) 0 - 2 /hpf 06/08/2025 4:56 PM CDT [facility] RBC UA >100(A) 0 - 2 /hpf 06/08/2025 4:56 PM CDT [facility] BACTERIA UA 2+(A) Negative /hpf 06/08/2025 4:56 PM CDT [facility] EPITHELIAL CELLS, URINE 0-5 0 - 5 /hpf 06/08/2025 4:56 PM CDT [facility] HYALINE CAST None Seen None Seen, 0-2 /lpf 06/08/2025 4:56 PM CDT [facility] Urine URINE SPECIMEN OBTAINED BY CLEAN CATCH PROCEDURE / Unknown Collection / Unknown 06/08/2025 4:25 PM CDT 06/08/2025 4:41 PM CDT us Andrez Cotter DO URINE ORDERABLES Final Result [facility] CLIA# [id number] [address] [place] [address] * US RENAL AND BLADDER (06/08/2025 11:21 AM CDT) Anatomical Region Laterality Modality Abdomen Ultrasound 06/08/2025 11:2 1 AM CDT Impressions 06/08/2025 11:33 AM CDT IMPRESSION: 1. Pedunculated soft tissue mass within the bladder concerning for neoplasm. Direct visualization and/or tissue sampling is recommended for further evaluation. 2. Prominence of the right greater than left renal pelvis. DICTATION LOCATION: Location 7 - [facility] Narrative 06/08/2025 11:33 AM CDT EXAMINATION: US RENAL AND BLADDER DATE: 06/08/2025 11:21 AM HISTORY: Urinary Retention; See Reason for Exam COMPARISON: CT 06/04/2025 FINDINGS: Renal parenchymal echogenicity is normal. No evidence of nephrolithiasis. Mild dilatation of the right renal pelvis. Minimal dilatation of the left renal pelvis. Renal blood flow is present. Pedunculated soft tissue mass with color Doppler flow at its base seen in the bladder measuring 5.2 x 4.0 x 4.7 cm. Right kidney: 10.6 cm Left kidney: 11.2 cm Andrez Cotter DO US ORDERABLES Edited Result - Final * (ABNORMAL) TROPONIN 6 HR, 5TH GEN (06/08/2025 5:48 AM CDT) TROPONIN T, 6 HR 5TH GEN 527(HH) <=15 ng/L 06/08/2025 6:44 AM CDT [facility] DELTA 6HR TROPONIN T % 206(HH) See Interp. % 06/08/2025 6:44 AM CDT [facility] Blood Venipuncture / Unknown 06/08/2025 5:48 AM CDT 06/08/2025 6:12 AM CDT Narrative [facility] - 06/08/2025 6:44 AM CDT Troponin elevated. Delay in collection of timed specimen beyond recommended collection interval. Results must be interpreted in clinical context. Delta significant change. Francisco Guerra PA-C CHEMISTRY ORDERABLES Final Result [facility] LYLE# [id number] [place] [address] * (ABNORMAL) CBC WITH DIFFERENTIAL (06/08/2025 5:48 AM CDT) Only the most recent of5 resultswithin the time period is included. [facility] WBC 6.5 4.0 - 9.8 K/uL 06/08/2025 6:15 AM CDT [facility] RBC 3.85(L) 4.50 - 5.40 M/uL 06/08/2025 6:15 AM CDT [facility] HEMOGLOBIN 11.2(L) 13.6 - 16.5 g/dL 06/08/2025 6:15 AM CDT [facility] HEMATOCRIT 32.7(L) 40.0 - 48.0 % 06/08/2025 6:15 AM CDT [facility] MCV 84.9 82.0 - 99.0 fL 06/08/2025 6:15 AM CDT [facility] MCH 29.1 27.2 - 32.6 pg 06/08/2025 6:15 AM CDT [facility] MCHC 34.3 31.5 - 35.5 g/dL 06/08/2025 6:15 AM CDT [facility] RDW 12.3 11.5 - 14.5 % 06/08/2025 6:15 AM CDT [facility] RDW-STDEV 37.2 37.1 - 48.7 fL 06/08/2025 6:15 AM CDT [facility] PLATELETS 184 140 - 350 K/uL 06/08/2025 6:15 AM CDT [facility] MPV 10.9 9.3 - 12.4 fL 06/08/2025 6:15 AM CDT [facility] NEUTROPHILS 79 % 06/08/2025 6:15 AM CDT [facility] LYMPHOCYTES 4 % 06/08/2025 6:15 AM CDT [facility] MONOCYTES 15 % 06/08/2025 6:15 AM CDT [facility] EOSINOPHILS 0 % 06/08/2025 6:15 AM CDT [facility] BASOPHILS 0 % 06/08/2025 6:15 AM CDT [facility] IMMATURE GRANULOCYTES 1 % 06/08/2025 6:15 AM CDT [facility] Comment:IG (Immature Granulo cyte) count includes Metamyelocytes, Myelocytes, and Promyelocytes NEUTROPHIL ABSOLUTE 5.16 1.90 - 7.00 K/uL 06/08/2025 6:15 AM CDT [facility] LYMPHOCYTE ABSOLUTE 0.25(L) 0.70 - 4.50 K/uL 06/08/2025 6:15 AM CDT [facility] MONOCYTE ABSOLUTE 1.00 0.10 - 1.30 K/uL 06/08/2025 6:15 AM CDT [facility] EOSINOPHIL ABSOLUTE 0.00 0.00 - 0.70 K/uL 06/08/2025 6:15 AM CDT [facility] BASOPHILS ABSOLUTE 0.02 0.00 - 0.20 K/uL 06/08/2025 6:15 AM CDT [facility] IMMATURE GRANULOCYTES ABSOLUTE 0.08(H) 0.00 - 0.03 K/uL 06/08/2025 6:15 AM CDT [facility] Blood Venipuncture / Unknown 06/08/2025 5:48 AM CDT 06/08/2025 6:11 AM CDT us Andrez Cerf Cyndee DO HEMATOLOGY ORDERABLES F inal Result [facility] CLIA# [id number] [place] [address] * (ABNORMAL) TROPONIN 2 HR, 5TH GEN (06/07/2025 9:14 PM CDT) TROPONIN T, 2 HR 5TH GEN 186(HH) <=15 ng/L 06/07/2025 10:06 PM CDT [facility] Blood Venipuncture / Unknown 06/07/2025 9:14 PM CDT 06/07/2025 9:33 PM CDT [facility] - 06/07/2025 10:06 PM CDT Troponin elevated. Delay in collection of timed specimen beyond recommended collection interval. Results must be interpreted in clinical context. Unable to calculate delta. [employer] / [employer]-C CHEMISTRY ORDERABLES Final Result [facility] CLIA# [id number] [place] [address] * (ABNORMAL) TROPONIN BASELINE, 5TH GEN (06/07/2025 8:55 PM CDT) Pathologist [facility] TROPONIN T, BASELINE 5TH GEN 172(HH) <=15 ng/L 06/07/2025 10:05 PM CDT [facility] Blood Venipuncture / Unknown 06/07/2025 8:55 PM CDT 06/07/2025 9:33 PM CDT [facility] - 06/07/2025 10:05 PM CDT Troponin elevated. [employer] / [employer]Intoo CHEMISTRY ORDERABLES Final Result [facility] CLIA# [id number] [place] [address] * (ABNORMAL) HEMOGLOBIN AND HEMATOCRIT (06/07/2025 8:55 PM CDT) Only the most recent of2 resultswithin the time period is included. Pathologist [facility] HEMOGLOBIN 11.6(L) 13.6 - 16.5 g/dL 06/07/2025 9:35 PM CDT [facility] HEMATOCRIT 33.5(L) 40.0 - 48.0 % 06/07/2025 9:35 PM CDT [facility] Blood Venipuncture / Unknown 06/07/2025 8:55 PM CDT 06/07/2025 9:34 PM CDT Francisco Guerra PA-C HEMATOLOGY ORDERABLES Final Result [facility] CLIA# [id number] [place] [address] * (ABNORMAL) BASIC METABOLIC PANEL (06/07/2025 8:55 PM CDT) Only the most recent of2 resultswithin the time period is included. SODIUM 142 136 - 145 mmol/L 06/07/2025 10:02 PM T [facility] POTASSIUM 3.3(L) 3.4 - 5.1 mmol/L 06/07/2025 10:02 PM T [facility] CHLORIDE 106 98 - 107 mmol/L 06/07/2025 10:02 PM [facility] CO2 22 22 - 29 mmol/L 06/07/2025 10:02 PM T [facility] CALCIUM 9.2 8.6 - 10.4 mg/dL 06/07/2025 10:02 PM [facility] BUN 18 6 - 20 mg/dL 06/07/2025 10:02 PM [facility] CREATININE 1.17 0.67 - 1.17 mg/dL 06/07/2025 10:02 PM T [facility] Comment:The GFR result is no t clinically significant on patients <18 or >70 years of age. GLUCOSE 123(H) 74 - 99 mg/dL 06/07/2025 10:02 PM T [facility] GFR >60 mL/min/1.7 3 sq meter 06/07/2025 10:02 PM [facility] Comment:eGFR calculated with 2020 CKD-EPI equation. Vegetarian diet, extremely high or low muscle mass, and may affect results. Cystatin C with Glomerular Filtration Rate is a suitable alternative for these patients. ANION GAP 14 8 - 16 mmol/L 06/07/2025 10:02 PM CDT [facility] Blood Venipuncture / Unknown 06/07/2025 8:55 PM CDT 06/07/2025 9:33 PM CDT Francisco Guerra PA-Nany CHEMISTRY ORDERABLES Final Result [facility] CLIA# [id number] [address] [place] [address] * EKG 12-LEAD (06/07/2025 7:56 PM CDT) Only the most recent of2 resultswithin the time period is included. 06/07/2025 7:56 PM CDT Narrative INTERFACE SYSTEM - 06/08/2025 6:48 [place] [address] Test Date: 2025-06-07 Pat Name: MAYANK JENKINS Department: 96 Room: [address] [place] [address] Gender: M Awning Maker: DEJAH : 1955 Requested By: MARCO ANTONIO PAEZ Order Number: [id number] Reading MD: Nadir Michaels Measurements Intervals [place] Rate: 75 P: 80 DC: 168 QRS: 115 QRSD: 142 T: 74 QT: 386 QTc: 431 Interpretive Statements Sinus rhythm with premature atrial complexes Right bundle branch block Abnormal ECG Compared to ECG 06/04/2025 07:27:46 Atrial premature complex(es) now present Electronically Signed On 06-08-2025 6:48:36 CDT by Nadir Michaels Procedure Note Provider, Historical - 06/08/[address] [address] Test Date: 2025-06-07 Pat Name: MAYANK JENKINS Department: 96 Room: [address] [place] [address] Gender: M Awning Maker: DEJAH : 1955 Requested By: MARCO ANTONIO PAEZ Order Number: [id number] Reading MD: Nadir Michaels Measurements Intervals [place] Rate: 75 P: 80 DC: 168 QRS: 115 QRSD: 142 T: 74 QT: 386 QTc: 431 Interpretive Statements Sinus rhythm with premature atrial complexes Right bundle branch block Abnormal ECG Compared to ECG 06/04/2025 07:27:46 Atrial premature complex(es) now present Electronically Signed On 06-08-2025 6:48:36 CDT by Nadir Michaels Francisco Guerra PA-C ECG ORDERABLES Final Resul t INTERFACE SYSTEM Refer to clinic/hospital department * (ABNORMAL) COMPREHENSIVE METABOLIC PANEL (06/06/2025 5:30 AM CDT) Only the most recent of3 resultswithin the time period is included. SODIUM 144 136 - 145 mmol/L 06/06/2025 7:10 AM CDT [facility] POTASSIUM 3.1(L) 3.4 - 5.1 mmol/L 06/06/2025 7:10 AM CDT [facility] CHLORIDE 107 98 - 107 mmol/L 06/06/2025 7:10 AM CDT [facility] CO2 24 22 - 29 mmol/L 06/06/2025 7:10 AM CDT [facility] CALCIUM 9.1 8.6 - 10.4 mg/dL 06/06/2025 7:10 AM CDT [facility] BUN 14 6 - 20 mg/dL 06/06/2025 7:10 AM CDT [facility] CREATININE 0.76 0.67 - 1.17 mg/dL 06/06/2025 7:10 AM T [facility] Comment:The GFR result is no t clinically significant on patients <18 or >70 years of age. GLUCOSE 107(H) 74 - 99 mg/dL 06/06/2025 7:10 AM CDT [facility] TOTAL PROTEIN 6.4 6.3 - 8.7 g/dL 06/06/2025 7:10 AM CDT [facility] ALBUMIN 3.7 3.5 - 5.2 g/dL 06/06/2025 7:10 AM T [facility] BILIRUBIN TOTAL 0.9 0.0 - 1.1 mg/dL 06/06/2025 7:10 AM T [facility] ALKALINE PHOSPHATASE 47 40 - 150 U/L 06/06/2025 7:10 AM T [facility] AST 29 0 - 41 U/L 06/06/2025 7:10 AM T [facility] ALT 8 0 - 41 U/L 06/06/2025 7:10 AM T [facility] GFR >60 mL/min/1.7 3 sq meter 06/06/2025 7:10 AM T [facility] Comment:eGFR calculated with 2020 CKD-EPI equation. Vegetarian diet, extremely high or low muscle mass, and may affect results. Cystatin C with Glomerular Filtration Rate is a suitable alternative for these patients. ANION GAP 13 8 - 16 mmol/L 06/06/2025 7:10 AM T [facility] Blood Venipuncture / Unknown 06/06/2025 5:30 AM CDT 06/06/2025 5:38 AM CDT us Orly Hernández DO CHEMISTRY ORDERABLES Final Resu lt [facility] CLIA# [id number] [place] [address] * LEGIONELLA ANTIGEN, URINE (06/05/2025 5:27 PM CDT) LEGIONELLA AG, URINE NOT DETECTED Not Detected 06/06/2025 2:49 PM CDT [facility] Urine URINE SPECIMEN OBTAINED BY CLEAN CATCH PROCEDURE / Unknown Collection / Unknown 06/05/2025 5:27 PM CDT 06/05/2025 9:20 PM CDT [facility] - 06/06/2025 2:49 PM CDT This test will not detect infections caused by Legionella species other than L. pneumophila serogroup 1. A negative antigen result does not exclude infection with L. pneumophila serogroup 1. Culture is recommended for suspected pneumoniae to detect causative agents other than L. pneumophila serogroup 1 and to recover L. pneumophila serogroup 1 when antigen is not detected in urine. Selwyn Valencia [facility] MICROBIOLOGY - GENERAL ORDERABLES Final Result Performing Organization Address City/[facility]/ZIP Co de Phone Number [facility] CLIA# [id number] [address] [place] [address] * RESPIRATORY PATHOGEN PCR PANEL (06/05/2025 11:35 AM CDT) [facility] Respiratory Pathogen PCR Panel NOT DETECTED No respiratory pathogen nucleic acids detected. 06/05/2025 12:40 PM CDT [facility] COVID-19 PCR NOT DETECTED Not Detected 06/05/2025 12:40 PM CDT [facility] Upper Respiratory ENTIRE NASOPHARYNX / Unknown Collection / Unknown 06/05/2025 11:35 AM CDT 06/05/2025 11:46 AM CDT [facility] - 06/05/2025 12:40 PM CDT The Film Array Respiratory Panel (RP2.1) is a multiplex nucleic acid detection test for 22 targets. Viruses: Adenovirus Coronavirus HKU1, NL63, 229E, and OC43 COVID-19/Severe Acute Respiratory Syndrome Coronavirus 2 Influenza A with the following subtypes: H1, H1-2009, and H3 Influenza B Human Metapneumovirus Parainfluenza virus 1, 2, 3, and 4 Respiratory Syncytial virus (RSV) Rhinovirus/Enterovirus (cannot differentiate due to genetic similarities) Bacteria: Bordetella pertussis Bordetella parapertussis Chlamydophila pneumoniae Mycoplasma pneumoniae Selwyn Valencia [facility] MICROBIOLOGY - GENERAL ORDERABLES Final Result Performing Organization Address City/[facility]/ZIP Co de Phone Number [facility] CLIA# [id number] [place] [address] * PROTIME-INR (06/05/2025 5:43 AM CDT) PROTIME 14.7 11.5 - 14.7 Seconds 06/05/2025 6:57 AM CDT [facility] INR 1.1 0.9 - 1.1 06/05/2025 6:57 AM CDT [facility] Blood Venipuncture / Unknown 06/05/2025 5:43 AM CDT 06/05/2025 6:26 AM CDT Genaro Mclean DO HEMATOLOGY ORDERABL ES Final Result [facility] CLIA# [id number] [address] [place] [address] * (ABNORMAL) PROCALCITONIN (06/05/2025 3:30 AM CDT) Pathologist [facility] PROCALCITONIN 1.10(H) <=0.25 ng/mL 06/05/2025 10:42 AM CDT [facility] Blood Venipuncture / Unknown 06/05/2025 3:30 AM CDT 06/05/2025 3:37 AM CDT Narrative [facility] - 06/05/2025 10:42 AM CDT The utility of procalcitonin is limited/NOT recommended in certain populations (e.g. newborns, dialysis/ESRD, patients with recent major surgery/trauma/bartlett, liver cirrhosis, viral hepatitis, certain cancers, etc.). Procalcitonin levels MUST be interpreted in the context of the patient's clinical condition and CANNOT be solely relied upon for diagnosis of infection. <0.25 ng/mL: Bacterial infection unlikely, particularly lower respiratory tract infections. <0.5 ng/mL: Low risk for progression to severe sepsis/septic shock. Localized infection possible. Measurements done early (<6 hours) after systemic process starts may still be low. 0.5-2 ng/mL: Moderate risk for progression to severe sepsis/septic shock. >2 ng/mL: High risk for progression to severe sepsis/septic shock. If antibiotics ARE administered, repeat testing is recommended every 2-3 days to help guide antibiotic cessation. Once a decrease of 80% or more has occurred from baseline, discontinuation of antibiotics should strongly be considered in clinically stable patients. Procalcitonin is produced in the setting of systemic inflammation, particularly bacterial infections. It is detectable within 2-4 hours and peaks within 6-24 hours. Selwyn Valencia DNP CHEMISTRY ORDERABLES nal Result [facility] CLIA# [id number] [place] [address] * (ABNORMAL) MANUAL DIFFERENTIAL (06/05/2025 3:30 AM CDT) Only the most recent of3 resultswithin the time period is included. ADJUSTED WBC 1.3 K/uL 06/05/2025 4:30 AM T [facility] NRBC PER 100 WBC 1(H) <=0 /100 WBC 06/05/2025 4:30 AM CDT [facility] SEGMENTED NEUTROPHILS 28 % 06/05/2025 4:30 AM CDT [facility] LYMPHOCYTES RELATIVE 58(H) 43 - 53 % 06/05/2025 4:30 AM CDT [facility] MONOCYTES RELATIVE 11 % 2024 4:30 AM CDT [facility] BASOPHILS RELATIVE 2 % 2024 4:30 AM CDT [facility] METAMYELOCYTES RELATIVE 1(H) <=0 % 06/05/2025 4:30 AM CDT [facility] NEUTROPHILS ABSOLUTE COUNT 0.37(LL) 1.90 - 7.00 K/uL 06/05/2025 4:30 AM CDT [facility] LYMPHOCYTES ABSOLUTE 0.76 0.70 - 4.50 K/uL 06/05/2025 4:30 AM CDT [facility] MONOCYTES ABSOLUTE 0.14 0.10 - 1.30 K/uL 06/05/2025 4:30 AM CDT [facility] BASOPHILS ABSOLUTE 0.02 0.00 - 0.20 K/uL 06/05/2025 4:30 AM CDT [facility] TOTAL CELLS COUNTED IN DIFF 110 06/05/2025 4:30 AM CDT [facility] RBC MORPHOLOGY abnormal 06/05/2025 4:30 AM CDT [facility] PLATELET EST. Adequate 06/05/2025 4:30 AM CDT [facility] ANISOCYTOSIS 1+ /hpf 06/05/2025 4:30 AM CDT [facility] POIKILOCYTES 2+ /hpf 06/05/2025 4:30 AM CDT [facility] SMUDGE CELLS Present /100 06/05/2025 4:30 AM CDT [facility] Blood Venipuncture / Unknown 06/05/2025 3:30 AM CDT 06/05/2025 3:40 AM CDT us Orly Hernández DO HEMATOLOGY ORDERABLES COM Final Result [facility] CLIA# [id number] [place] [address] * (ABNORMAL) C-REACTIVE PROTEIN (06/05/2025 3:30 AM CDT) CRP 149.0(H) <5.0 mg/L 06/05/2025 10:11 AM CDT [facility] Blood Venipuncture / Unknown 06/05/2025 3:30 AM CDT 06/05/2025 3:37 AM CDT Selwyn Valencia DNP CHEMISTRY ORDERABLES Fi nal Result [facility] CLIA# [id number] [place] [address] * CT CHEST ABDOMEN PELVIS W CONT (06/04/2025 7:27 PM CDT) Anatomical Region Laterality Modality Chest Computed Tomogra phy 06/04/2025 7:07 PM CDT Impressions 06/04/2025 7:45 PM CDT IMPRESSION: 1. There is an abnormal appearance of the rectum and posterior bladder wall with ill-defined areas of enhancement in those structures and loss of tissue planes. This may be related to an infiltrating mass or an infectious process such as either proctitis or cystitis that has spread to the adjacent structure. 2. Patchy opacities in the left lower lobe suspicious for pneumonia. 3. Other incidental findings as above. DICTATION LOCATION: Location [address] [place] [address] Narrative 06/04/2025 7:45 PM CDT EXAM: CT CHEST ABDOMEN PELVIS W CONT DATE: 06/04/2025 HISTORY: Sepsis, Patient with neutropenic fever and sepsis; See Reason for Exam COMPARISON: None. TECHNIQUE: Axial images with multiplanar reconstruction. Radiation dose reduction technique was utilized. CONTRAST: IOPAMIDOL 76 % INTRAVENOUS SOLUTION (MULTI-DOSE BULK PACK) Given:80 mL FINDINGS: CHEST: There is a 4.5 mm pleural-based nodule between the right middle and lower lobes (image 69). Patchy airspace opacities are noted in the left lower lobe. There is bibasilar dependent atelectasis. A calcified granuloma seen in the right lower lobe. No pneumothorax or pleural effusion is present. The heart is normal in size. Scattered subcentimeter mediastinal lymph nodes are noted. Bilateral gynecomastia is incidentally noted. There is a right chest Port-A-Cath and ends in the superior vena cava. No osteolytic or osteoblastic lesions are identified. ABDOMEN: The attenuation of the liver is lower than the spleen consistent with fatty change of the liver. Mild periportal edema is noted. There are multiple fat attenuation left adrenal nodules consistent with adenomas. The largest measures 11 mm. Scattered calcifications in the spleen are most consistent with old granulomatous disease. The gallbladder, pancreas, right adrenal gland, and kidneys are normal. There are a few mildly dilated and fluid-filled loops of small bowel suggesting enteritis. Scattered diverticula are seen in the sigmoid colon. No free intraperitoneal air, fluid or evidence of obstruction is present. PELVIS: Urinary bladder is partially decompressed with bladder wall thickening noted. There is enhancement involving the posterior aspect of the urinary bladder and surrounding the rectum. It appears that the prostate gland has been removed. The tissue planes between the posterior bladder and rectum are indistinct. There is a tiny focus of gas in the urinary bladder. There is mild presacral edema. No suspicious lytic or blastic lesions are present. Noy London MD CT ORDERABLES Edited Result - Final * BLOOD CULTURE (06/04/2025 4:21 PM CDT) BLOOD CULTURE No growth 06/10/2025 4:26 AM CDT [facility] Blood (Peripheral) Venipuncture / Unknown 06/04/2025 4:21 PM CDT 06/04/2025 5:01 PM CDT Orly Hernández DO MICROBIOLOGY - GENERAL ORDERABL ES Final Result [facility]# [id number] [address] [facility] [place] [facility] [place] [address] * ECHO COMPLETE - CONTRAST AND STRAIN IF INDICATED (06/04/2025 12:10 PM CDT) EJECTION FRACTION 64 INTERFACE SYSTEM 06/04/2025 11:4 1 AM CDT Narrative INTERFACE SYSTEM - 06/04/2025 12:14 PM CDT Transthoracic Echocardiogram Patient: Mayank Jenkins Study ID: [id number] Gender: M : 1955 Age: 70 Race: CAU Height 180.3cm Study Date: 06/04/2025 Weight: 56.4kg Access. #: [id number] BP: 127 / 65 *Referring Physician:* Orly Hernández V. *Ordering Physician:* Orly Hernández V. *Commercial Representative:Susan Orozco [facility] information technology specialist: Nurse: Indications: High BNP. History: PMH: No prior cardiac history. STUDY CONCLUSIONS: SUMMARY: - Left ventricle: The cavity size was normal. Wall thickness was normal. Global systolic function is normal. The estimated ejection fraction is 60-65%. For Epic reporting: the left ventricular ejection fraction is 64% . - Mitral valve: Mild regurgitation. - Left atrium: The atrium is normal in size. - Right ventricle: The cavity size is normal. Systolic function is normal. - Tricuspid valve: Mild regurgitation. - Pulmonary arteries: The peak systolic pressure is 15mm Hg. Cardiac Anatomy: LEFT VENTRICLE: The cavity size was normal. Wall thickness was normal. Global systolic function is normal. The estimated ejection fraction is 60-65%. For Epic reporting: the left ventricular ejection fraction is 64% . AORTIC VALVE: Structurally normal valve. Trileaflet. No significant regurgitation. The mean systolic gradient is 5mm Hg. The peak systolic gradient is 9mm Hg. The LVOT to aortic valve VTI ratio is 0.79. The valve area is 2.5cm^2. The ratio of LVOT to aortic valve peak velocity is 0.79. AORTA: Aortic root: The root is normal-sized. MITRAL VALVE: Structurally normal valve. Mild regurgitation. The mean diastolic gradient is 2mm Hg. The peak diastolic gradient is 3mm Hg. LEFT ATRIUM: The atrium is normal in size. RIGHT VENTRICLE: The cavity size is normal. Systolic function is normal. PULMONIC VALVE: Structurally normal valve. No significant regurgitation. TRICUSPID VALVE: Structurally normal valve. Mild regurgitation. RIGHT ATRIUM: The atrium was normal in size. SYSTEMIC VEINS: Inferior vena cava: The IVC is normal-sized. PERICARDIUM: There is no pericardial effusion. Measurements Left ventricle Value Ref IVS, ED, LAX (N) 0.9 cm 0.6 - 1.0 MARIUZS, LAX (L) 2.8 cm 4.2 - 5.8 MARIUSZ/bsa, LAX (L) 1.6 cm/m^2 2.2 - 3.0 IVS, ED (N) 0.9 cm 0.6 - 1.0 PW, ED (H) 1.1 cm 0.6 - 1.0 EDV, 2-p (N) 89 ml 62 - 150 ESV, 2-p (N) 34 ml 21 - 61 EF, 2-p (N) 61 % 52 - 72 SV, 2-p 55 ml --------- SV/bsa, 2-p 31.7 ml/m^2 --------- E', med meredith, TDI (N) 10.3 cm/sec >=7.0 E/e', med meredith, TDI 7 --------- LVOT Value Ref Diam, S 2.0 cm --------- Area 3.1 cm^2 --------- Peak christiana, S 1.18 m/sec --------- VTI, S 21.6 cm --------- Peak grad, S 6 mm Hg --------- Right ventricle Value Ref MARIUSZ minor ax, A4C base (N) 3.3 cm 2.5 - 4.1 MARIUSZ minor ax, A4C mid (N) 3.1 cm 1.9 - 3.5 MARIUSZ major ax, A4C (N) 8.1 cm 5.9 - 8.3 TAPSE, MM (N) 2.4 cm >=1.7 Pressure, S 15 mm Hg --------- S' lateral (N) 16.2 cm/sec >=9.5 Left atrium Value Ref AP dim, ES (L) 2.9 cm 3.0 - 4.0 AP dim index, ES (N) 1.7 cm/m^2 1.5 - 2.3 SI dim, A4C 4.6 cm --------- Area ES, A4C (N) 13 cm^2 <=20 Area/bsa ES, A4C 7.27 cm^2/m^2 --------- SI dim, A2C 5.1 cm --------- SI dim, shorter 4.6 cm --------- Vol, ES, 1-p A2C (N) 28 ml 18 - 58 Vol/bsa, ES, 1-p A2C (N) 16 ml/m^2 11 - 43 Vol, ES, 2-p 29 ml --------- Vol/bsa, ES, 2-p (N) 17 ml/m^2 16 - 34 LA/Ao root ratio 0.97 --------- Right atrium Value Ref SI dim, ES, A4C (N) 4.6 cm 3.4 - 5.3 SI dim/bsa, ES, A4C (N) 2.7 cm/m^2 1.8 - 3.0 Area, ES, A4C (N) 11 cm^2 10 - 18 Vol, ES, 1-p A4C 21 ml --------- Vol/bsa, ES, 1-p A4C (N) 12 ml/m^2 11 - 39 Aortic valve Value Ref Peak v, S 1.5 m/sec --------- Mean v, S 1.01 m/sec --------- VTI, S 27.2 cm --------- Mean grad, S 5 mm Hg --------- Peak grad, S 9 mm Hg --------- LVOT/AV, VTI ratio 0.79 --------- KARL, VTI 2.5 cm^2 --------- KARL/bsa, VTI 1.45 cm^2/m^2 --------- LVOT/AV, Vpeak ratio 0.79 --------- KARL, Vmax 2.5 cm^2 --------- KARL/bsa, Vmax 1.45 cm^2/m^2 --------- Mitral valve Value Ref Peak E 0.69 m/sec --------- Peak A 0.82 m/sec --------- Mean grad, D 2 mm Hg --------- Peak grad, D 3 mm Hg --------- Peak E/A ratio 0.8 --------- Pulmonic valve Value Ref Peak v, S 1.18 m/sec --------- Peak grad, S 6 mm Hg --------- Tricuspid valve Value Ref Peak E 0.63 m/sec --------- TR peak v (N) 1.6 m/sec <=2.8 Peak RV-RA grad, S 10 mm Hg --------- Aortic root Value Ref Root diam, 3.0 cm --------- Pulmonary artery Value Ref Pressure, S 15 mm Hg --------- Systemic veins Value Ref Estimated RA pressure 5 mm Hg --------- Legend: (L) and (H) mickie values outside specified reference range. (N) witt values inside specified reference range. Procedure data: [facility] No prior study was available for comparison. Study status: Routine. Procedure information: A transthoracic echocardiogram was performed. Image quality was adequate. Scanning was performed from the parasternal, apical, and subcostal acoustic windows. Transthoracic echocardiogram. Complete 2D, complete spectral Doppler, and color Doppler. Images were not appropriate for strain imaging. Birthdate: Patient birthdate: 1955. Age: Patient is 70year(s) old. Sex: gender: male. Height: 180.3cm. 71in. Weight: 56.4kg. 124.4lb. Body mass index: 17.4kg/m^2. Body surface area: 1.72m^2. Heart rate: 84bpm. Blood pressure: 127/65 Patient status: Inpatient. Study date: Study date: 06/04/2025. Study time: 11:41 AM. Location: Bedside. Prepared and Electronically Authenticated He Valle M.D. [id number] Procedure Note He Valle MD - 06/04/2025 Transthoracic Echocardiogram Patient: Mayank Jenkins Study ID: [id number] Gender: M : 1955 Age: 70 Race: RAMON Height 180.3cm Study Date: 06/04/2025 Weight: 56.4kg Access. #: [id number] BP: 127 / 65 *Referring Physician:* Orly Hernández V. *Ordering Physician:* Orly Hernández V. *Commercial Representative:Susan Orozco [facility] information technology specialist: Nurse: Indications: High BNP. History: PMH: No prior cardiac history. STUDY CONCLUSIONS: SUMMARY: - Left ventricle: The cavity size was normal. Wall thickness was normal. Global systolic function is normal. The estimated ejection fraction is 60-65%. For Epic reporting: the left ventricular ejection fraction is64% . - Mitral valve: Mild regurgitation. - Left atrium: The atrium is normal in size. - Right ventricle: The cavity size is normal. Systolic function isnormal. - Tricuspid valve: Mild regurgitation. - Pulmonary arteries: The peak systolic pressure is 15mm Hg. Cardiac Anatomy: LEFT VENTRICLE: The cavity size was normal. Wall thickness was normal.Global systolic function is normal. The estimated ejection fraction is 60-65%.For Epic reporting: the left ventricular ejection fraction is 64% . AORTIC VALVE: Structurally normal valve. Trileaflet. No significant regurgitation. The mean systolic gradient is 5mm Hg. The peak systolic gradient is 9mm Hg. The LVOT to aortic valve VTI ratio is 0.79. The valvearea is 2.5cm^2. The ratio of LVOT to aortic valve peak velocity is 0.79. AORTA: Aortic root: The root is normal-sized. MITRAL VALVE: Structurally normal valve. Mild regurgitation. Themean diastolic gradient is 2mm Hg. The peak diastolic gradient is 3mm Hg. LEFT ATRIUM: The atrium is normal in size. RIGHT VENTRICLE: The cavity size is normal. Systolic function isnormal. PULMONIC VALVE: Structurally normal valve. No significantregurgitation. TRICUSPID VALVE: Structurally normal valve. Mild regurgitation. RIGHT ATRIUM: The atrium was normal in size. SYSTEMIC VEINS: Inferior vena cava: The IVC is normal-sized. PERICARDIUM: There is no pericardial effusion. Measurements Left ventricle Value Ref IVS, ED, LAX (N) 0.9 cm 0.6 - 1.0 MARIUSZ, LAX (L) 2.8 cm 4.2 - 5.8 MARIUSZ/bsa, LAX (L) 1.6 cm/m^2 2.2 - 3.0 IVS, ED (N) 0.9 cm 0.6 - 1.0 PW, ED (H) 1.1 cm 0.6 - 1.0 EDV, 2-p (N) 89 ml 62 - 150 ESV, 2-p (N) 34 ml 21 - 61 EF, 2-p (N) 61 % 52 - 72 SV, 2-p 55 ml --------- SV/bsa, 2-p 31.7 ml/m^2 --------- E', med meredith, TDI (N) 10.3 cm/sec >=7.0 E/e', med meredith, TDI 7 --------- LVOT Value Ref Diam, S 2.0 cm --------- Area 3.1 cm^2 --------- Peak christiana, S 1.18 m/sec --------- VTI, S 21.6 cm --------- Peak grad, S 6 mm Hg --------- Right ventricle Value Ref MARIUSZ minor ax, A4C base (N) 3.3 cm 2.5 - 4.1 MARIUSZ minor ax, A4C mid (N) 3.1 cm 1.9 - 3.5 MARIUSZ major ax, A4C (N) 8.1 cm 5.9 - 8.3 TAPSE, MM (N) 2.4 cm >=1.7 Pressure, S 15 mm Hg --------- S' lateral (N) 16.2 cm/sec >=9.5 Left atrium Value Ref AP dim, ES (L) 2.9 cm 3.0 - 4.0 AP dim index, ES (N) 1.7 cm/m^2 1.5 - 2.3 SI dim, A4C 4.6 cm --------- Area ES, A4C (N) 13 cm^2 <=20 Area/bsa ES, A4C 7.27 cm^2/m^2 --------- SI dim, A2C 5.1 cm --------- SI dim, shorter 4.6 cm --------- Vol, ES, 1-p A2C (N) 28 ml 18 - 58 Vol/bsa, ES, 1-p A2C (N) 16 ml/m^2 11 - 43 Vol, ES, 2-p 29 ml --------- Vol/bsa, ES, 2-p (N) 17 ml/m^2 16 - 34 LA/Ao root ratio 0.97 --------- Right atrium Value Ref SI dim, ES, A4C (N) 4.6 cm 3.4 - 5.3 SI dim/bsa, ES, A4C (N) 2.7 cm/m^2 1.8 - 3.0 Area, ES, A4C (N) 11 cm^2 10 - 18 Vol, ES, 1-p A4C 21 ml --------- Vol/bsa, ES, 1-p A4C (N) 12 ml/m^2 11 - 39 Aortic valve Value Ref Peak v, S 1.5 m/sec --------- Mean v, S 1.01 m/sec --------- VTI, S 27.2 cm --------- Mean grad, S 5 mm Hg --------- Peak grad, S 9 mm Hg --------- LVOT/AV, VTI ratio 0.79 --------- KARL, VTI 2.5 cm^2 --------- KARL/bsa, VTI 1.45 cm^2/m^2 --------- LVOT/AV, Vpeak ratio 0.79 --------- KARL, Vmax 2.5 cm^2 --------- KARL/bsa, Vmax 1.45 cm^2/m^2 --------- Mitral valve Value Ref Peak E 0.69 m/sec --------- Peak A 0.82 m/sec --------- Mean grad, D 2 mm Hg --------- Peak grad, D 3 mm Hg --------- Peak E/A ratio 0.8 --------- Pulmonic valve Value Ref Peak v, S 1.18 m/sec --------- Peak grad, S 6 mm Hg --------- Tricuspid valve Value Ref Peak E 0.63 m/sec --------- TR peak v (N) 1.6 m/sec <=2.8 Peak RV-RA grad, S 10 mm Hg --------- Aortic root Value Ref Root diam, 3.0 cm --------- Pulmonary artery Value Ref Pressure, S 15 mm Hg --------- Systemic veins Value Ref Estimated RA pressure 5 mm Hg --------- Legend: (L) and (H) mickie values outside specified reference range. (N) witt values inside specified reference range. Procedure data: [facility] No prior study was available for comparison. Studystatus: Routine. Procedure information: A transthoracic echocardiogram was performed. Image quality was adequate. Scanning was performed from the parasternal, apical, and subcostal acoustic windows.Transthoracic echocardiogram. Complete 2D, complete spectral Doppler, and colorDoppler. Images were not appropriate for strain imaging. Birthdate: Patient birthdate: 1955. Age: Patient is 70year(s) old. Sex: Birthgender: male. Height: 180.3cm. 71in. Weight: 56.4kg. 124.4lb. Body massindex: 17.4kg/m^2. Body surface area: 1.72m^2. Heart rate: 84bpm.Blood pressure: 127/65 Patient status: Inpatient. Study date: Studydate: 06/04/2025. Study time: 11:41 AM. Location: Bedside. Prepared and Electronically Authenticated He Valle M.D. [id number]:20 us Orly Hernández DO US ORDERABLES Final Result INTERFACE SYSTEM Refer to clinic/hospital department * LACTIC ACID (06/04/2025 7:05 AM CDT) LACTIC ACID 1.0 <=2.0 mmol/L 06/04/2025 7:51 AM CDT [facility] Blood Venipuncture / Unknown 06/04/2025 7:05 AM CDT 06/04/2025 7:23 AM CDT us Orly Hernández DO CHEMISTRY ORDERABLES Final Resu lt [facility] CLIA# [id number] [address] [place] [address] * XR PRIOR STUDY (06/03/2025 7:35 PM CDT) Narrative [facility] - 06/04/2025 4:17 PM CDT This exam was auto finalized to allow images to be scanned to PACS. External Provider [facility] DIAGNOSTIC IMAGING ORDERA BLES Final Result Performing Organization Address City/[facility]/ZIP Co de Phone Number [facility] CLIA # [id number] [place] [address] from Last 3 Months Insurance MEDICARE PART A AND B [facility] [id number] [id number] RX [employer] Medicare Part D RX [employer] (INTERNAL) [facility] Internal Plans Advance Directives For more information, please contact: [phone] * Full Code (Latest Code Status on File) Date Activated Date Inactivated Comments 06/04/2025 7:59 AM 06/11/2025 1:57 PM Care Teams Eligibility Counselor Relationship Specialty Start Date End Date Arvind Castellanos MD [address] [place] [address] PCP - General Internal Medicine 06/04/25
--- OUTSIDE RECORDS SUMMARY | 2025-06-14 13:16 | XMS_ITS ---
Author Organization [facility] Address [address] [place] [address] Phone Care Team Providers Care Car Packer Name Role Phone Arvind Castellanos MD Primary Care Provider [phone] Active Problems Problem Noted Date Diagnosed Date [...] neoplasm of prostate GERD (gastroesophageal reflux disease) Current Treatment and Therapy Plans No current plan information found. Past Treatment and Therapy Plans No past plan information found. Lifetime Dose Tracking * Chemical Lifetime Dose Automatic Entry Manual Entr y Effective Dose 9.05 mSv 9.05 mSv 0 mSv Total DLP 501.65 DLP 501.65 DLP 0 DLP CTDIvol Max 6.42 mGy 6.42 mGy 0 mGy CTDIvol Min 6.42 mGy 6.42 mGy 0 mGy
--- OUTSIDE RECORDS SUMMARY | 2025-06-14 13:16 | XMS_ITS | Encounter Summary ---
Author Organization [facility] Address [address] [place] [address] Phone Care Team Providers Care Jewelsmith Name Role Phone Arvind Castellanos MD Primary Care Provider [phone] Patrick Perez MD Unavailable [phone] Encounter Details Date Type Department Care Team (Late st Contact Info) Description 02/01/2023 Telephone [facility] Medicine Oncology [address] [place] [phone] Sandra Davila., B.A. 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
--- OUTSIDE RECORDS SUMMARY | 2025-06-14 13:16 | XMS_ITS | Clinical Summary ---
Author Organization [facility] Address [address] [place] [address] Care Team Providers Care Assistant Teacher Name Role Phone Unavailable Primary Care Provider Unavailabl e Source Comments [facility],non-owned Affiliates and Associated Physician Practices is amultiple site organization consisting of ambulatory clinics and hospital sitesin [place], [place], [place] and [place]. This disclosure is being madepursuant to the Care Everywhere program and may not contain all information available regarding this patient. 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
== END 2025-06-14 12:50 | disposition home or self-care (01) ==
LOC: CHSIMG 12:51
PROVIDERS: PCP Internal Medicine
DX: C61 Malignant neoplasm of prostate (principal); Z79.818 Long term (current) use of other agents affecting estrogen receptors and estrogen levels; M81.0 Age-related osteoporosis without current pathological fracture
CPT/HCPCS: 77080

== ENCOUNTER 2025-07-22 13:18 | Emergency (ER) | payer MEDICARE, OTHER, SELFPAY ==
--- NOTE | ~2025-07-22 | XR_ITS ---
EXAMINATION: XR forearm LT 2V DATE: 07/22/2025 13:48 INDICATION: Wrist and forearm injury. TECHNIQUE: 2 images of the left forearm were obtained. COMPARISON: none FINDINGS: Minimally displaced fracture of the metadiaphysis of the distal left radius with adjacent soft tissue swelling. Bones appear osteopenic. No other fracture identified. IMPRESSION: 1. Minimally displaced fracture of the metadiaphysis of the distal left radius with adjacent soft tissue swelling. If symptoms persist or worsen, consider a short-term follow-up study or additional imaging for further assessment. Reviewed, dictated and finalized at location Q. IMPRESSION: 1. Minimally displaced fracture of the metadiaphysis of the distal left radius with adjacent soft tissue swelling. If symptoms persist or worsen, consider a short-term follow-up study or additio nal imaging for further assessment.
--- NOTE | ~2025-07-22 | XR_ITS ---
EXAMINATION: XR wrist LT min 3V, 07/22/2025 13:20 CDT HISTORY: Rib forearm injury COMPARISON: No comparisons available. Findings: There is a nondisplaced fracture of the distal radius suspected intra-articular extension. No significant degenerative changes. Soft tissue swelling. Impression: Distal radial fracture Reviewed, dictated and finalized at location P. Impression: Distal radial fracture
--- NOTE | ~2025-07-22 | XR_ITS ---
EXAMINATION: XR wrist RT min 3V, 07/22/2025 13:20 CDT HISTORY: Right wrist injury COMPARISON: No comparisons available. Findings: Nondisplaced fracture of the distal radius No significant degenerative changes. Soft tissue swelling Impression: Distal radial fracture Reviewed, dictated and finalized at location . Impression: Distal radial fracture
[2025-07-22 13:18] VITALS: BP 152/78; PULSE 106; RESP 20; TEMP 36.7; O2SAT 98
--- OUTSIDE RECORDS SUMMARY | 2025-07-22 14:05 | XMS_ITS | Clinical Summary ---
Author Organization [facility] Address [address] [place] [address] Care Team Providers Care Packaging Assembler Name Role Phone Arvind Castellanos MD Primary Care Provider [phone] Allergies Active Allergy Reactions Criticality Noted Date [...] by mouth daily. Active vitamin D2, ergocalciferol, 31024 UNITS capsule Take 50,000 Units by mouth. 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 Gender Identity Not on file Sexual Orientation [...] Colorectal Cancer Screening Colonoscopy (10 Years) 1955 COVID-19 Vaccine (#1) 1960 Hepatitis C 1973 Pneumococcal Vaccine: 50+ Ye ars (1 of 1 - PCV) 2005 Zoster Vaccines (1 of 2) 2005 RSV Immunization or 60+ Years (1 - Risk 60-74 years 1-dose series) 2015 Annual Medicare Wellness Visit 2020 DTaP, Tdap and Td Vaccines ( 2 - Td or Tdap) 08/12/2024 08/12/2014 Influenza Adult (#1) 2025 Hepatitis A Vaccines Aged Out No long er eligible based on patient's age to complete this topic Meningococcal B Vaccine Aged Out No l onger eligible based on patient's age to complete this topic Meningococcal Vaccine Aged Out No aime esdras eligible based on patient's age to complete this topic RSV Immunizations Under 20 Months Aged Out No longer eligible based on patient's age to complete this topic Insurance MEDICARE [id number] Care Teams Packaging Assembler Relationship Specialty Start Date End Date Arvind Castellanos MD [address] [place] [address] PCP - General INTERNAL MEDICINE 12/26/21
--- OUTSIDE RECORDS SUMMARY | 2025-07-22 14:05 | XMS_ITS | Encounter Summary ---
Author Organization [facility] Address [address] [place] [address] Phone Care Team Providers Care Trapeze Performer Name Role Phone Arvind Castellanos MD Primary Care Provider [phone] Patrick Perez MD Unavailable [phone] Encounter Details Date Type Department Care Team (Latest Contact Info) Description 06/14/2025 Orders Only [facility] Scanning, Provider Social History Tobacco Use Types Packs/Day Years Used Date Smoking Tobacco: Never Smokeless Tobacco: Never Alcohol Use Standard Drinks/Week Comments No 0 (1 standard drink = 0.6 oz pur e alcohol) Sex and Gender Information Value Date Recorded Sex Assigned at Not on file 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 Gender Identity Not on file Sexual Orientation Not on file documented as of this encounter Plan of Treatment Not on file documented as of this encounter Procedures Procedure Name Priority Date/Time Associated Diagnosis Comments SCAN - RADIOLOGY/IMAGING 06/14/2025 documented in this encounter Results * SCAN - RADIOLOGY/IMAGING (06/14/2025) Anatomical Region Laterality Modality Other us Provider Scanning Final Result documented in this encounter Visit Diagnoses Not on filedocumented in this encounter Care Teams Trapeze Performer Relationship Specialty Start Date End Date Arvind Castellanos MD PCP - General 12/24/17 Patrick Perez MD [address] [place] [id number] Urology 07/27/21 documented as of this encounter
--- OUTSIDE RECORDS SUMMARY | 2025-07-22 14:05 | XMS_ITS | Clinical Summary ---
Author Organization [facility] Address [address] [place] [address] Care Team Providers Care Brooch Maker Novelty Name Role Phone Unavailable Primary Care Provider Unavailabl e Source Comments [facility],non-owned Affiliates and Associated Physician Practices is amultiple site organization consisting of ambulatory clinics and hospital sitesin [place], [place], [place] and [place]. This disclosure is being madepursuant to the Care Everywhere program and may not contain all information available regarding this patient. 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
--- OUTSIDE RECORDS SUMMARY | 2025-07-22 14:05 | XMS_ITS | Clinical Summary ---
Author Organization [facility] Address [address] [place] [address] Phone Care Team Providers Care Global Product Manager Name Role Phone Arvind Castellanos MD Primary Care Provider [phone] Allergies Active Allergy Reactions Criticality Noted Date [...] 30 Tablet 1 06/11/2025 11:57 AM CDT Active amLODIPine (NORVASC) 5 mg tablet Starting 06/12/25, Take 1 Tablet (5 mg) by mouth daily. 30 Tablet 06/11/2025 11:57 AM CDT Active Active Problems Problem Noted Date Diagnosed [...] Encounters Date Type Department Care Team Description 07/13/2025 External Device Data [facility] ABSTRACTION Provider, Abstract 07/06/2025 External Device Data [facility] ABSTRACTION Provider, Abstract 07/06/2025 External Device Data [facility] ABSTRACTION Provider, Abstract 07/06/2025 External Device Data [facility] ABSTRACTION Provider, Abstract 06/15/2025 External Device Data [facility] ABSTRACTION Provider, Abstract 06/15/2025 External Device Data [facility] ABSTRACTION Provider, Abstract 06/15/2025 External Device Data ST[facility] ABSTRACTION Provider, Abstract 06/11/2025 Telephone [facility] Heart and Vascular - [address] [address] [facility] [address] [address] [facility] [address] [place] [address] Franc Wyman MD Needs Appointment 06/10/2025 3:58 PM CDT - 06/10/2025 5:11 PM CDT Surgery [facility] Operating Room [address] [place] [address] Jessie Posada MD CYSTO CLOT EVACUATION BIPOLAR BLADDER FULGURATION AND URETHRAL DILATION 06/10/2025 3:42 PM CDT Anesthesia Event [facility] Operating Room [address] [place] [address] Aliyah Bone MD Fitzer, Julia N, AA 06/09/2025 External Device Data ST[facility] ABSTRACTION Provider, Abstract 06/08/2025 External Device Data [facility] ABSTRACTION Provider, Abstract 06/08/2025 External Device Data [facility] ABSTRACTION Provider, Abstract 06/04/2025 4:42 AM CDT - 06/11/2025 11:47 AM CDT Hospital Encounter [facility] Cardiovascular Progressive Care unit [address] [place] [address] Marco Antonio Gallego MD Amin, Birju V., [...] Health Maintenance Due Date Last Done Comments COLORECTAL SCREENING 2000 Colorectal Cancer Screening 2000 [...] Priority Date/Time Associated Diagnosis Comments TELEMETRY REPORT 06/17/2025 3:14 PM CDT TELEMETRY REPORT 06/17/2025 3:10 PM CDT TELEMETRY REPORT 06/17/2025 1:48 PM CDT TELEMETRY REPORT 06/17/2025 1:28 PM CDT TELEMETRY REPORT 06/11/2025 2:56 PM CDT TELEMETRY REPORT 06/11/2025 2:29 PM CDT TELEMETRY REPORT 06/11/2025 1:51 PM CDT CBC WITHOUT DIFFERENTIAL Routine 06/11/2025 4:50 AM CDT MAGNESIUM LEVEL Routine 06/11/2025 4:50 AM CDT RENAL FUNCTION PANEL Routine 06/11/2025 4:50 AM CDT [place] CYSTO W/DESTRUCTION OF LESIONS 06/10/2025 3:58 PM CDT Gross hematuria Special Needs BIPOLAR TYPE AND SCREEN Stat 06/10/2025 5:24 AM [...] AM CDT X-RAY PRIOR STUDY Routine 06/03/2025 7:3 5 PM CDT from Last 3 Months Results * TELEMETRY REPORT (06/17/2025 3:14 PM CDT) Only the most recent of15 resultswithin the time period is included. us Provider Scanning ECG ORDERABLES Final Result * (ABNORMAL) CBC WITHOUT DIFFERENTIAL (06/11/2025 4:50 AM CDT) Only the most recent of3 resultswithin the time period is included. WBC 12.2(H) 4.0 - 9.8 K/uL 06/11/2025 5:02 AM CDT [facility] RBC 4.18(L) 4.50 - 5.40 M/uL 06/11/2025 5:02 AM CDT [facility] HEMOGLOBIN 12.5(L) 13.6 - 16.5 g/dL 06/11/2025 5:02 AM CDT [facility] HEMATOCRIT 36.3(L) 40.0 - 48.0 % 06/11/2025 5:02 AM CDT [facility] MCV 86.8 82.0 - 99.0 fL 06/11/2025 5:02 AM CDT [facility] MCH 29.9 27.2 - 32.6 pg 06/11/2025 5:02 AM CDT [facility] MCHC 34.4 31.5 - 35.5 g/dL 06/11/2025 5:02 AM CDT [facility] PLATELETS 313 140 - 350 K/uL 06/11/2025 5:02 AM CDT [facility] MPV 10.7 9.3 - 12.4 fL 06/11/2025 5:02 AM CDT [facility] RDW 12.5 11.5 - 14.5 % 06/11/2025 5:02 AM CDT [facility] RDW-STDEV 39.7 37.1 - 48.7 fL 06/11/2025 5:02 AM CDT [facility] Blood Venipuncture / Unknown 06/11/2025 4:50 AM CDT 06/11/2025 4:52 AM CDT Andrez Cerf Cyndee DO HEMATOLOGY ORDERABLES F inal Result Performing Organization Address City/[facility]/ZIP Co de Phone Number [facility] CLIA# [id number] [place] [address] * MAGNESIUM LEVEL (06/11/2025 4:50 AM CDT) Only the most recent of5 resultswithin the time period is included. MAGNESIUM 1.7 1.6 - 2.6 mg/dL 06/11/2025 5:26 AM CDT [facility] Blood Venipuncture / Unknown 06/11/2025 4:50 AM CDT 06/11/2025 4:52 AM CDT Andrez Cerf Cyndee DO CHEMISTRY ORDERABLES Fi nal Result Performing Organization Address City/[facility]/ZIP Co de Phone Number [facility] CLIA# [id number] [place] [address] * (ABNORMAL) RENAL FUNCTION PANEL (06/11/2025 4:50 AM CDT) Only the most recent of4 resultswithin the time period is included. SODIUM 142 136 - 145 mmol/L 06/11/2025 5:26 AM T [facility] POTASSIUM 4.3 3.4 - 5.1 mmol/L 06/11/2025 5:26 AM [facility] CHLORIDE 104 98 - 107 mmol/L 06/11/2025 5:26 AM [facility] CO2 28 22 - 29 mmol/L 06/11/2025 5:26 AM [facility] CALCIUM 9.1 8.6 - 10.4 mg/dL 06/11/2025 5:26 AM [facility] BUN 24(H) 6 - 20 mg/dL 06/11/2025 5:26 AM [facility] CREATININE 0.79 0.67 - 1.17 mg/dL 06/11/2025 5:26 AM [facility] Comment:The GFR result is no t clinically significant on patients <18 or >70 years of age. GLUCOSE 135(H) 74 - 99 mg/dL 06/11/2025 5:26 AM [facility] ALBUMIN 3.5 3.5 - 5.2 g/dL 06/11/2025 5:26 AM [facility] PHOSPHORUS 3.4 2.5 - 4.5 mg/dL 06/11/2025 5:26 AM [facility] GFR >60 mL/min/1.7 3 sq meter 06/11/2025 5:26 AM [facility] Comment:eGFR calculated with 2020 CKD-EPI equation. Vegetarian diet, extremely high or low muscle mass, and may affect results. Cystatin C with Glomerular Filtration Rate is a suitable alternative for these patients. ANION GAP 10 8 - 16 mmol/L 06/11/2025 5:26 AM [facility] Blood Venipuncture / Unknown 06/11/2025 4:50 AM CDT 06/11/2025 4:52 AM CDT Andrez Cotter DO CHEMISTRY ORDERABLES Fi nal Result Performing Organization Address [facility]/ZIP Co de Phone Number [facility]# [id number] [place] [address] * TYPE AND SCREEN (06/10/2025 5:24 AM CDT) Only the most recent of2 resultswithin the time period is included. ABO GROUP B 06/10/2025 6:31 AM CDT [facility] RH (D) TYPE Positive 06/10/2025 6:31 AM CDT [facility] ANTIBODY SCREEN Negative 06/10/2025 6:31 AM CDT [facility] Blood Venipuncture / Unknown 06/10/2025 5:24 AM CDT 06/10/2025 5:37 AM CDT Nicholas Wall MD BLOOD BANK ORDERABLES Edited Res ult - Final Performing Organization Address [facility] Co de Phone Number [facility]# [id number] [place] [address] * URINE CULTURE (06/09/2025 6:36 PM CDT) Only the most recent of2 resultswithin the time period is included. CULTURE No growth at 24 hours 06/11/2025 8:02 AM CDT [facility] Urine URINE SPECIMEN OBTAINED BY CLEAN CATCH PROCEDURE / Unknown Collection / Unknown 06/09/2025 6:36 PM CDT 06/09/2025 8:10 PM CDT Selwyn Valencia DNP MICROBIOLOGY - GENERAL ORDERABLES Final Result Performing Organization Address City/[facility]/ZIP Co de Phone Number [facility]# [id number] [address] [place] [address] * UNFRACTIONATED HEPARIN MONITORING (06/09/2025 6:53 AM CDT) [facility] ANTI-XA UNFRAC HEP <0.10 See Interpreta tion. IU/mL 06/09/2025 7:36 AM CDT [facility] Blood Venipuncture / Unknown 06/09/2025 6:53 AM CDT 06/09/2025 7:09 AM CDT Narrative [facility] - 06/09/2025 7:36 AM CDT Unfractionated Heparin Therapeutic Range: 0.30-0.70 IU/ml Refer to pharmacy adult heparin protocol for further recommendation. The reference range for this test is specific to the anticoagulant and is not appropriate for monitoring patients on a DOAC protocol. us Ulices Rizo NP HEMATOLOGY ORDERABLES Final Res ult [facility] CLIA# [id number] [place] [address] * PTT (06/09/2025 6:53 AM CDT) [facility] PTT 26.5 23.1 - 37.1 seconds 06/09/2025 7:36 AM CDT [facility] Blood Venipuncture / Unknown 06/09/2025 6:53 AM CDT 06/09/2025 7:09 AM CDT us Ulices Rizo NP HEMATOLOGY ORDERABLES Final Res ult [facility] CLIA# [id number] [place] [address] * (ABNORMAL) TROPONIN (06/09/2025 5:15 AM CDT) Only the most recent of2 resultswithin the time period is included. [facility] TROPONIN T, 5TH GEN 271(HH) <=15 ng/L 06/09/2025 6:22 AM CDT [facility] Blood Venipuncture / Unknown 06/09/2025 5:15 AM CDT 06/09/2025 5:29 AM CDT Narrative [facility] - 06/09/2025 6:22 AM CDT Troponin elevated. Andrez Cotter DO CHEMISTRY ORDERABLES Fi nal Result [facility] CLIA# [id number] [place] [address] * EXTRA TUBE (URINE LÓPEZ) (06/08/2025 4:25 PM CDT) Only the most recent of2 resultswithin the time period is included. Urine URINE SPECIMEN OBTAINED BY CLEAN CATCH PROCEDURE / Unknown Collection / Unknown 06/08/2025 4:25 PM CDT 06/08/2025 4:41 PM CDT Andrez Cotter DO URINE ORDERABLES Final Result Performing Organization Address [facility] Co de Phone Number [facility] CLIA# [id number] [place] [address] * STREPTOCOCCUS PNEUMONIAE ANTIGEN (06/08/2025 4:25 PM CDT) [facility] STREPTOCOCCUS PNEUMONIAE AG NOT DETECTED Not Detected 06/08/2025 9:44 PM CDT [facility] Urine URINE SPECIMEN OBTAINED BY CLEAN CATCH PROCEDURE / Unknown Collection / Unknown 06/08/2025 4:25 PM CDT 06/08/2025 4:40 PM CDT Selwyn Valencia [facility] MICROBIOLOGY - GENERAL ORDERABLES Final Result Performing Organization Address City/[facility]/ZIP Co de Phone Number [facility] CLIA# [id number] [address] [facility] [place] [address] * SODIUM, RANDOM URINE (06/08/2025 4:25 PM CDT) Only the most recent of2 resultswithin the time period is included. SODIUM, URINE 89 mmol/L 06/08/2025 5:20 PM CDT [facility] Comment:Reference range not established Urine URINE SPECIMEN OBTAINED BY CLEAN CATCH PROCEDURE / Unknown Collection / Unknown 06/08/2025 4:25 PM CDT 06/08/2025 4:41 PM CDT [facility] Cyndee DO URINE ORDERABLES Final Result Performing Organization Address [facility]/ZIP Co de Phone Number [facility]# [id number] [place] [address] * CREATININE, RANDOM URINE (06/08/2025 4:25 PM CDT) Only the most recent of2 resultswithin the time period is included. CREATININE, URINE 87.6 40.0 - 278.0 mg/dL 06/08/2025 5:20 PM CDT [facility] Comment:Reference Range vari es with fluid intake and diet. Urine URINE SPECIMEN OBTAINED BY CLEAN CATCH PROCEDURE / Unknown Collection / Unknown 06/08/2025 4:25 PM CDT 06/08/2025 4:41 PM CDT [employer]rez [employer] Cyndee DO URINE ORDERABLES Final Result Performing Organization Address City/[facility]/ZIP Co de Phone Number [facility]# [id number] [place] [address] * (ABNORMAL) URINALYSIS WITH REFLEX MICROSCOPIC (06/08/2025 4:25 PM CDT) Only the most recent of2 resultswithin the time period is included. COLOR UA Claudette(A) Pale to Dark Yellow 06/08/2025 4:56 PM CDT [facility] CLARITY UA Cloudy(A) Clear 06/08/2025 4:56 PM CDT [facility] SPECIFIC GRAVITY UA 1.013 1.003 - 1.035 06/08/2025 4:56 PM CDT [facility] PH UA 6.0 5.0 - 8.0 06/08/2025 4:56 PM CDT [facility] LEUKOCYTE ESTERASE UA Negative Negative 06/08/2025 4:56 PM CDT [facility] NITRITE UA Negative Negative 06/08/2025 4:56 PM CDT [facility] PROTEIN UA 2+(A) Negative 06/08/2025 4:56 PM CDT [facility] GLUCOSE UA 1+(A) Negative 06/08/2025 4:56 PM CDT [facility] KETONES UA 1+(A) Negative 06/08/2025 4:56 PM CDT [facility] UROBILINOGEN UA Normal <2.0 mg/dL 4:56 PM CDT [facility] BILIRUBIN UA Negative Negative 06/08/2025 4:56 PM CDT [facility] BLOOD UA 2+(A) Negative 06/08/2025 4:56 PM CDT [facility] WBC UA >100(A) 0 - 2 /hpf 06/08/2025 4:56 PM CDT [facility] RBC UA >100(A) 0 - 2 /hpf 06/08/2025 4:56 PM CDT [facility] BACTERIA UA 2+(A) Negative /hpf 06/08/2025 4:56 PM CDT [facility] EPITHELIAL CELLS, URINE 0-5 0 - 5 /hpf 06/08/2025 4:56 PM CDT [facility] HYALINE CAST None Seen None Seen, 0-2 /lpf 06/08/2025 4:56 PM CDT [facility] Urine URINE SPECIMEN OBTAINED BY CLEAN CATCH PROCEDURE / Unknown Collection / Unknown 06/08/2025 4:25 PM CDT 06/08/2025 4:41 PM CDT [facility] Montserrat Cotter DO URINE ORDERABLES Final Result [facility] [employer] [facility] CLIA# [id number] [place] [address] * US RENAL AND BLADDER (06/08/2025 11:21 AM CDT) Anatomical Region Laterality Modality Abdomen Ultrasound 06/08/2025 11:2 1 AM CDT Impressions 06/08/2025 11:33 AM CDT IMPRESSION: 1. Pedunculated soft tissue mass within the bladder concerning for neoplasm. Direct visualization and/or tissue sampling is recommended for further evaluation. 2. Prominence of the right greater than left renal pelvis. DICTATION LOCATION: Location 7 - [facility] Narrative 06/08/2025 11:33 AM CDT EXAMINATION: US [...] 527(HH) <=15 ng/L 06/08/2025 6:44 AM CDT [facility] [employer] [facility] 6HR TROPONIN T % 206(HH) See Interp. % 06/08/2025 6:44 AM CDT [facility] [employer] [facility] Blood Venipuncture / Unknown 06/08/2025 5:48 AM CDT 06/08/2025 6:12 AM CDT Narrative [facility] - 06/08/2025 6:44 AM CDT Troponin elevated. Delay in collection of timed specimen beyond recommended collection interval. Results must be interpreted in clinical context. Delta significant change. Francisco Guerra PA-C CHEMISTRY ORDERABLES Final Result [facility] CLIA# [id number] [place] [address] * (ABNORMAL) CBC WITH DIFFERENTIAL (06/08/2025 5:48 AM CDT) Only the most recent of5 resultswithin the time period is included. WBC 6.5 4.0 - 9.8 K/uL 06/08/2025 6:15 AM CDT [facility] RBC 3.85(L) 4.50 - 5.40 M/uL 06/08/2025 6:15 AM CDT [facility] HEMOGLOBIN 11.2(L) 13.6 - 16.5 g/dL 06/08/2025 6:15 AM CDT [facility] HEMATOCRIT 32.7(L) 40.0 - 48.0 % 06/08/2025 6:15 AM CDT [facility] MCV 84.9 82.0 - 99.0 fL 06/08/2025 6:15 AM CDT [facility] MCH 29.1 27.2 - 32.6 pg 06/08/2025 6:15 AM CDT [facility] MCHC 34.3 31.5 - 35.5 g/dL 06/08/2025 6:15 AM CDT [facility] RDW 12.3 11.5 - 14.5 % 06/08/2025 6:15 AM CDT [facility] RDW-STDEV 37.2 37.1 - 48.7 fL 06/08/2025 6:15 AM CDT [facility] PLATELETS 184 140 - 350 K/uL 06/08/2025 6:15 AM CDT [facility] MPV 10.9 9.3 - 12.4 fL 06/08/2025 6:15 AM CDT [facility] NEUTROPHILS 79 % 06/08/2025 6:15 AM CDT [facility] LYMPHOCYTES 4 % 06/08/2025 6:15 AM CDT [facility] MONOCYTES 15 % 06/08/2025 6:15 AM CDT [facility] EOSINOPHILS 0 % 06/08/2025 6:15 AM CDT [facility] BASOPHILS 0 % 06/08/2025 6:15 AM CDT [facility] IMMATURE GRANULOCYTES 1 % 06/08/2025 6:15 AM CDT [facility] Comment:IG (Immature Granulo cyte) count includes Metamyelocytes, Myelocytes, and Promyelocytes NEUTROPHIL ABSOLUTE 5.16 1.90 - 7.00 K/uL 06/08/2025 6:15 AM CDT [facility] LYMPHOCYTE ABSOLUTE 0.25(L) 0.70 - 4.50 K/uL 06/08/2025 6:15 AM CDT [facility] MONOCYTE ABSOLUTE 1.00 0.10 - 1.30 K/uL 06/08/2025 6:15 AM CDT [facility] EOSINOPHIL ABSOLUTE 0.00 0.00 - 0.70 K/uL 06/08/2025 6:15 AM CDT [facility] BASOPHILS ABSOLUTE 0.02 0.00 - 0.20 K/uL 06/08/2025 6:15 AM CDT [facility] IMMATURE GRANULOCYTES ABSOLUTE 0.08(H) 0.00 - 0.03 K/uL 06/08/2025 6:15 AM T [facility] Blood Venipuncture / Unknown 06/08/2025 5:48 AM CDT 06/08/2025 6:11 AM CDT Andrez Cotter DO HEMATOLOGY ORDERABLES F inal Result [facility] CLIA# [id number] [place] [address] * (ABNORMAL) TROPONIN 2 HR, 5TH GEN (06/07/2025 9:14 PM CDT) TROPONIN T, 2 HR 5TH GEN 186(HH) <=15 ng/L 06/07/2025 10:06 PM CDT [facility] [employer] [facility] Blood Venipuncture / Unknown 06/07/2025 9:14 PM CDT 06/07/2025 9:33 PM CDT Narrative [facility] [employer] [facility] - 06/07/2025 10:06 PM CDT Troponin elevated. Delay in collection of timed specimen beyond recommended collection interval. Results must be interpreted in clinical context. Unable to calculate delta. [employer] PA-C CHEMISTRY ORDERABLES Final Result [facility] [id number] [place] [address] * (ABNORMAL) TROPONIN BASELINE, 5TH GEN (06/07/2025 8:55 PM CDT) TROPONIN T, BASELINE 5TH GEN 172(HH) <=15 ng/L 06/07/2025 10:05 PM CDT [facility] [employer] [facility] Blood Venipuncture / Unknown 06/07/2025 8:55 PM CDT 06/07/2025 9:33 PM CDT Narrative [facility] [employer] [facility] - 06/07/2025 10:05 PM CDT Troponin elevated. [employer] PA-C CHEMISTRY ORDERABLES Final Result [facility] [employer] [id number] [place] [address] * (ABNORMAL) HEMOGLOBIN AND HEMATOCRIT (06/07/2025 8:55 PM CDT) Only the most recent of2 resultswithin the time period is included. [facility] HEMOGLOBIN 11.6(L) 13.6 - 16.5 g/dL 06/07/2025 9:35 PM CDT [facility] HEMATOCRIT 33.5(L) 40.0 - 48.0 % 06/07/2025 9:35 PM CDT [facility] Blood Venipuncture / Unknown 06/07/2025 8:55 PM CDT 06/07/2025 9:34 PM CDT Francisco Guerra PA-C HEMATOLOGY ORDERABLES Final Result [facility] CLIA# [id number] [place] [address] * (ABNORMAL) BASIC METABOLIC PANEL (06/07/2025 8:55 PM CDT) Only the most recent of2 resultswithin the time period is included. [facility] SODIUM 142 136 - 145 mmol/L 06/07/2025 10:02 PM CDT [facility] POTASSIUM 3.3(L) 3.4 - 5.1 mmol/L 06/07/2025 10:02 PM CDT [facility] CHLORIDE 106 98 - 107 mmol/L 06/07/2025 10:02 PM CDT [facility] CO2 22 22 - 29 mmol/L 06/07/2025 10:02 PM CDT [facility] CALCIUM 9.2 8.6 - 10.4 mg/dL 06/07/2025 10:02 PM CDT [facility] BUN 18 6 - 20 mg/dL 06/07/2025 10:02 PM CDT [facility] CREATININE 1.17 0.67 - 1.17 mg/dL 06/07/2025 10:02 PM CDT [facility] Comment:The GFR result is no t clinically significant on patients <18 or >70 years of age. GLUCOSE 123(H) 74 - 99 mg/dL 06/07/2025 10:02 PM CDT [facility] GFR >60 mL/min/1.7 3 sq meter 06/07/2025 10:02 PM CDT [facility] Comment:eGFR calculated with 2020 CKD-EPI equation. Vegetarian diet, extremely high or low muscle mass, and may affect results. Cystatin C with Glomerular Filtration Rate is a suitable alternative for these patients. ANION GAP 14 8 - 16 mmol/L 06/07/2025 10:02 PM CDT [facility] Blood Venipuncture / Unknown 06/07/2025 8:55 PM CDT 06/07/2025 9:33 PM CDT Francisco Guerra PA-C CHEMISTRY ORDERABLES Final Result [facility] CLIA# [id number] [address] [place] [address] * EKG 12-LEAD (06/07/2025 7:56 PM CDT) Only the most recent of2 resultswithin the time period is included. 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 : 1955 Requested By: MARCO ANTONIO PAEZ Order Number: [id number] Reading MD: Nadir Michaels Measurements Intervals [place] Rate: 75 P: 80 [place]: 168 QRS: 115 QRSD: 142 T: 74 QT: 386 QTc: 431 Interpretive Statements Sinus rhythm with premature atrial complexes Right bundle branch block Abnormal ECG Compared to ECG 06/04/2025 07:27:46 Atrial premature complex(es) now present Electronically Signed On 06-08-2025 6:48:36 CDT by Nadir Michaels Procedure Note Provider, Historical - 06/08/[address] [address] Test Date: 2025-06-07 Pat Name: MAYANK JENKINS Department: 96 Room: [address] [place] [address] Gender: M Career 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: DEJAH : 1955 Requested By: MARCO ANTONIO PAEZ Order Number: [id number] Reading MD: Nadir Michaels Measurements Intervals [place] Rate: 75 P: 80 [place]: 168 QRS: 115 QRSD: 142 T: 74 [...] - 145 mmol/L 06/06/2025 7:10 AM CDT [facility] SERVICES - [facility] POTASSIUM 3.1(L) 3.4 - 5.1 mmol/L 06/06/2025 7:10 AM CDT [facility] SERVICES - [facility] CHLORIDE 107 98 - 107 mmol/L 06/06/2025 7:10 AM CDT [facility] SERVICES - [facility] CO2 24 22 - 29 mmol/L 06/06/2025 7:10 AM CDT [facility] LABOR[facility]ORY [facility] CALCIUM 9.1 8.6 - 10.4 mg/dL 06/06/2025 7:10 AM CDT [facility]OR[facility]ORY SERVICES - [facility] BUN 14 6 - 20 mg/dL 06/06/2025 7:10 AM [facility] CREATININE 0.76 0.67 - 1.17 mg/dL 06/06/2025 7:10 AM [facility] Comment:The GFR result is no t clinically significant on patients <18 or >70 years of age. GLUCOSE 107(H) 74 - 99 mg/dL 06/06/2025 7:10 AM [facility] TOTAL PROTEIN 6.4 6.3 - 8.7 g/dL 06/06/2025 7:10 AM [facility] ALBUMIN 3.7 3.5 - 5.2 g/dL 06/06/2025 7:10 AM [facility] BILIRUBIN TOTAL 0.9 0.0 - 1.1 mg/dL 06/06/2025 7:10 AM [facility] ALKALINE PHOSPHATASE 47 40 - 150 U/L 06/06/2025 7:10 AM [facility] AST 29 0 - 41 U/L 06/06/2025 7:10 AM [facility] ALT 8 0 - 41 U/L 06/06/2025 7:10 AM [facility] GFR >60 mL/min/1.7 3 sq meter 06/06/2025 7:10 AM [facility] Comment:eGFR calculated with 2020 CKD-EPI equation. Vegetarian diet, extremely high or low muscle mass, and may affect results. Cystatin C with Glomerular Filtration Rate is a suitable alternative for these patients. ANION GAP 13 8 - 16 mmol/L 06/06/2025 7:10 AM [facility] Blood Venipuncture / Unknown 06/06/2025 5:30 AM CDT 06/06/2025 5:38 AM CDT us Orly Hernández DO CHEMISTRY ORDERABLES Final Resu lt [facility] CLIA# [id number] [place] [address] * LEGIONELLA ANTIGEN, URINE (06/05/2025 5:27 PM CDT) [facility] LEGIONELLA AG, URINE NOT DETECTED Not Detected 06/06/2025 2:49 PM CDT [facility] Urine URINE SPECIMEN OBTAINED BY CLEAN CATCH PROCEDURE / Unknown Collection / Unknown 06/05/2025 5:27 PM CDT 06/05/2025 9:20 PM CDT [facility] - 06/06/2025 2:49 PM CDT This test [...] is not detected in urine. Selwyn Valencia [facility] MICROBIOLOGY - GENERAL ORDERABLES Final Result [facility]# [id number] [address] [place] [address] * RESPIRATORY PATHOGEN PCR PANEL (06/05/2025 11:35 AM CDT) [facility] Respiratory Pathogen PCR Panel NOT DETECTED No respiratory pathogen nucleic acids detected. 06/05/2025 12:40 PM CDT [facility] COVID-19 PCR NOT DETECTED Not Detected 06/05/2025 12:40 PM CDT [facility] Upper Respiratory ENTIRE NASOPHARYNX / Unknown Collection / Unknown 06/05/2025 11:35 AM CDT 06/05/2025 11:46 AM CDT [facility] - 06/05/2025 12:40 PM CDT The Film [...] parapertussis Chlamydophila pneumoniae Mycoplasma pneumoniae Selwyn Valencia DNP MICROBIOLOGY - GENERAL ORDERABLES Final Result Performing Organization Address City/[facility]/ZIP Co de Phone Number [facility] [id number] [place] [address] * PROTIME-INR (06/05/2025 5:43 AM CDT) PROTIME 14.7 11.5 - 14.7 Seconds 06/05/2025 6:57 AM CDT [facility] INR 1.1 0.9 - 1.1 06/05/2025 6:57 AM CDT [facility] Blood Venipuncture / Unknown 06/05/2025 5:43 AM CDT 06/05/2025 6:26 AM CDT Genaro Mclean DO HEMATOLOGY ORDERABL ES Final Result Performing Organization Address [facility] Co de Phone Number [facility]# [id number] [place] [address] * (ABNORMAL) PROCALCITONIN (06/05/2025 3:30 AM CDT) PROCALCITONIN 1.10(H) <=0.25 ng/mL 06/05/2025 10:42 AM CDT [facility] Blood Venipuncture / Unknown 06/05/2025 3:30 AM CDT 06/05/2025 3:37 AM CDT Narrative [facility] - 06/05/2025 10:42 AM CDT The utility [...] and peaks within 6-24 hours. Selwyn Valencia [facility] CHEMISTRY ORDERABLES [facility] Result [facility] [id number] [place] [address] * (ABNORMAL) MANUAL DIFFERENTIAL (06/05/2025 3:30 AM CDT) Only the most recent of3 resultswithin the time period is included. ADJUSTED WBC 1.3 K/uL 06/05/2025 4:30 AM CDT [facility] NRBC PER 100 WBC 1(H) <=0 /100 WBC 06/05/2025 4:30 AM CDT [facility] SEGMENTED NEUTROPHILS 28 % 06/05/2025 4:30 AM CDT [facility] LYMPHOCYTES RELATIVE 58(H) 43 - 53 % 06/05/2025 4:30 AM CDT [facility] MONOCYTES RELATIVE 11 % 2024 4:30 AM CDT [facility] BASOPHILS RELATIVE 2 % 2024 4:30 AM CDT [facility] METAMYELOCYTES RELATIVE 1(H) <=0 % 06/05/2025 4:30 AM CDT [facility] NEUTROPHILS ABSOLUTE COUNT 0.37(LL) 1.90 - 7.00 K/uL 06/05/2025 4:30 AM CDT [facility] LYMPHOCYTES ABSOLUTE 0.76 0.70 - 4.50 K/uL 06/05/2025 4:30 AM CDT [facility] MONOCYTES ABSOLUTE 0.14 0.10 - 1.30 K/uL 06/05/2025 4:30 AM CDT [facility] BASOPHILS ABSOLUTE 0.02 0.00 - 0.20 K/uL 06/05/2025 4:30 AM CDT [facility] TOTAL CELLS COUNTED IN DIFF 110 06/05/2025 4:30 AM CDT [facility] RBC MORPHOLOGY abnormal 06/05/2025 4:30 AM CDT [facility] PLATELET EST. Adequate 06/05/2025 4:30 AM CDT [facility] ANISOCYTOSIS 1+ /hpf 06/05/2025 4:30 AM CDT [facility] POIKILOCYTES 2+ /hpf 06/05/2025 4:30 AM CDT [facility] SMUDGE CELLS Present /100 06/05/2025 4:30 AM CDT [facility] Blood Venipuncture / Unknown 06/05/2025 3:30 AM CDT 06/05/2025 3:40 AM CDT us Orly Hernández DO HEMATOLOGY ORDERABLES COM Final Result [facility] CLIA# [id number] [address] [place] [address] * (ABNORMAL) C-REACTIVE PROTEIN (06/05/2025 3:30 AM CDT) CRP 149.0(H) <5.0 mg/L 06/05/2025 10:11 AM CDT [facility] Blood Venipuncture / Unknown 06/05/2025 3:30 AM CDT 06/05/2025 3:37 AM CDT us Selwyn Valencia DNP CHEMISTRY ORDERABLES Fi nal Result [facility] SERVICES [facility] CLIA# [id number] [address] [place] [address] * CT CHEST ABDOMEN PELVIS W CONT (06/04/2025 7:27 PM CDT) Anatomical Region Laterality Modality Chest Computed Tomogra y 06/04/2025 7:07 PM CDT Impressions 06/04/2025 7:45 [...] incidental findings as above. DICTATION LOCATION: Location 7 - [facility] Narrative 06/04/2025 7:45 PM CDT EXAM: CT [...] CULTURE No growth 06/10/2025 4:26 AM CDT [facility] Blood (Peripheral) Venipuncture / Unknown 06/04/2025 4:21 PM CDT 06/04/2025 5:01 PM CDT Orly Hernández DO MICROBIOLOGY - GENERAL ORDERABL ES Final Result [facility] [id number] [address] [facility] MAXIMILIANO [place]OSIRIS [place] [address] * ECHO COMPLETE - CONTRAST AND STRAIN IF INDICATED (06/04/2025 12:10 PM CDT) EJECTION FRACTION 64 INTERFACE SYSTEM 06/04/2025 11:4 1 AM CDT Narrative INTERFACE SYSTEM - 06/04/2025 12:14 PM CDT Transthoracic Echocardiogram Patient: Mayank Jenkins Study ID: [id number] Gender: M : 1955 Age: 70 Race: RAMON Height 180.3cm Study Date: 06/04/2025 Weight: 56.4kg Access. #: [id number] BP: 127 / 65 *Referring Physician:* Orly Hernández V. *Ordering Physician:* Orly Hernández V. *Outsole Beveler:Susan Orozco RDCS medtronics technician: Nurse: Indications: High BNP. History: PMH: No [...] 0.79 --------- KARL, Vmax 2.5 cm^2 --------- KRAL/bsa, Vmax 1.45 cm^2/m^2 --------- Mitral valve Value [...] values inside specified reference range. Procedure data: [facility] No prior study was available for [...] Prepared and Electronically Authenticated He Valle M.D. [id number]:14:20 Procedure Note He Valle MD - 06/04/2025 Transthoracic Echocardiogram Patient: Mayank Jenkins Study ID: [id number] Gender: M : 1955 Age: 70 Race: RAMON Height 180.3cm Study Date: 06/04/2025 Weight: 56.4kg Access. #: [id number] BP: 127 / 65 *Referring Physician:* Orly Hernández V. *Ordering Physician:* Orly Hernández V. *Outsole Beveler:* Erika Orozco [email or web address]] medtronics technician: Nurse: Indications: High BNP. History: PMH: No [...] values inside specified reference range. Procedure data: [facility] No prior study was available for [...] Prepared and Electronically Authenticated He Valle M.D. [id number]:14:20 us Orly Hernández DO US ORDERABLES Final Result Performing Organization Address City/[facility]/ZIP Co de Phone Number INTERFACE SYSTEM Refer to clinic/hospital department * LACTIC ACID (06/04/2025 7:05 AM CDT) LACTIC ACID 1.0 <=2.0 mmol/L 06/04/2025 7:51 AM CDT [facility] SERVICES [facility] Blood Venipuncture / Unknown 06/04/2025 7:05 AM CDT 06/04/2025 7:23 AM CDT us Orly Hernández DO CHEMISTRY ORDERABLES Final Resu lt Performing Organization Address [facility] Co de Phone Number [facility] LAB[facility]ORY [facility] CLIA# [id number] [place] [address] * XR PRIOR STUDY (06/03/2025 7:35 PM CDT) Narrative [facility] POINT OF CARE - 06/04/2025 4:17 PM CDT This exam was auto finalized to allow images to be scanned to PACS. External Provider [facility] DIAGNOSTIC IMAGING ORDERA BLES Final Result Performing Organization Address [facility] Co de Phone Number [facility] POINT OF CARE CLIA # [id number] [place] [address] from Last 3 Months Insurance MEDICARE PART A AND B [facility] RX [employer] Medicare Part D RX [employer] (INTERNAL) [facility] Internal Plans Advance Directives For more information, please contact: [phone] * Full Code (Latest Code Status on File) Date Activated Date Inactivated Comments 06/04/2025 7:59 AM 06/11/2025 1:57 PM Care Teams Global Product Manager Relationship Specialty Start Date End Date Arvind Castellanos MD [address] [place] [id number] PCP - General Internal Medicine 06/04/25
--- OUTSIDE RECORDS SUMMARY | 2025-07-22 14:05 | XMS_ITS | Clinical Summary ---
Author Organization [facility] Address [address] [place] [address] Care Team Providers Care Senior Receptionist Name Role Phone Arvind Castellanos MD Primary Care Provider [phone] Patrick Perez MD Unavailable [phone] Allergies Active Allergy Reactions Criticality Noted Date Comments Meperidine Vomiting High 04/11/2018 Medications HYDROcodone-acet aminophen (NORCO) 7.5-325 mg per tabletIndication s:Pain 0 8 Active ondansetron (ZOFRAN) 8 mg tablet Take 1 tablet (8 mg total) by mouth every 8 (eight) hours as needed for nausea or vomiting 10 tablet [address] (PROTONIX) 40 mg EC tablet TAKE 1 TABLET BY MOUTH TWICE A DAY 180 tablet 3 5 Active predniSONE (DELTASONE) 10 mg tabletIndication s:Prostate cancer (HCC),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) Take 1 tablet (10 mg) by mouth daily 30 tablet 5 5 Active OLANZapine (ZyPREXA) 5 mg tablet Take 1 tablet (5 mg total) by mouth nightly 30 tablet 3 5 09/23/19 26 Active prochlorperazine (COMPAZINE) 10 mg tablet TAKE 1 TABLET BY MOUTH EVERY 6 HOURS NEEDED FOR NAUSEA 120 tablet 1 5 Active amLODIPine (NORVASC) 5 mg tablet Take 1 tablet (5 mg total) by mouth daily 5 Active lisinopriL (PRINIVIL,ZESTRI L) 20 mg tablet Take 1 tablet (20 mg total) by mouth daily 5 Active metoprolol XL (TOPROL-XL) 25 mg extended release tablet Take 1 tablet (25 mg total) by mouth daily 5 Active solifenacin (VESIcare) 5 mg tablet Take 1 tablet (5 mg total) by mouth daily 5 Active cholecalciferol 25 mcg (1,000 unit) tablet Take 1 tablet (1,000 Units total) by mouth daily Active Active Problems Problem Noted Date Diagnosed Date Osteoporosis without current pathological fractu re 07/13/2025 High risk medication use 05/27/2025 Overview (05/27/2025): Pt receives ADT from local provider. 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 Closed displaced fracture of greater tuberosity of left humerus 12/29/2021 Vitamin D deficiency, unspecified 08/22/2021 Prostate cancer 03/26/2021 Bilateral hip pain 04/11/2018 Encounters Date Type Department Care Team Description 07/15/2025 Telephone [facility] Medicine Oncology [address] [place] [address] [address] [place] [address] Sharmin De La Vega, RN 07/14/2025 9:30 AM CDT Infusion [facility] at [address] [place] [phone] 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); Prostate cancer (HCC); 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) 07/14/2025 9:00 AM CDT Office Visit [facility] Medicine Oncology [address] [place] [address] [address] [place] [address] Gladis Savage NP 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); Prostate cancer (HCC); 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); Osteoporosis without current pathological fracture, unspecified osteoporosis type 07/14/2025 8:00 AM CDT Clinical Support [facility] at [address] [place], [place] [phone] Prostate cancer (HCC); 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) 06/23/2025 9:30 AM CDT Infusion [facility] at [address] [place] [phone] 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); Prostate cancer (HCC); 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) 06/23/2025 9:00 AM CDT Office Visit [facility] [address] [place], [place] [address] [phone] Junaid Cifuentes MD PhD 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); Prostate cancer (HCC) 06/23/2025 8:00 AM CDT Clinical Support [facility] at [address] [place] [phone] Prostate cancer (HCC); 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) 06/16/2025 9:00 AM CDT Office Visit [facility] [address] [place] [address] [place] [phone] Gladis Savage NP 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); Prostate cancer (HCC) 06/16/2025 8:00 AM CDT Clinical Support [address] [place] [address] Prostate cancer (HCC); 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) 06/14/2025 Orders Only [facility] Scanning, Provider 06/11/2025 Telephone [facility] [address] [place], [place] [address] [phone] Tierney Magana RN 06/09/2025 Telephone [facility] Oncology [address] [place] [address] [address] [place], [place] [phone] Sharmin De La Vega, POLINA 06/07/2025 [facility]phone [facility] [address] [facility] [address] [place], [place] [phone] Sharmin De La Vega, POLINA 06/04/2025 Telephone [facility] Medicine Oncology [address] [place] [address] [address] [place], [place] [phone] Yudith Orozco CMA 06/04/2025 Orders Only [facility] Floor 5 [place] [phone] Sharmin De La Vega, POLINA 06/03/[address] [address] He Almaraz MD 06/03/2025 Telephone [facility] Medicine Oncology [facility] Floor [address] [place] [address] Radha Healy 05/27/2025 Telephone [facility] Medicine Oncology [address] [place] [address] [address] [place], [place] [phone] Alfonso Macias, POLINA 05/26/2025 9:30 AM CDT Infusion [facility] at [address] [place] [phone] 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); Prostate cancer (HCC); 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) 05/26/2025 9:00 AM CDT Office Visit [facility] Medicine Oncology [address] [place] [address] [address] [place], [place] [phone] Junaid Cifuentes MD PhD 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); Prostate cancer (HCC) 05/26/2025 8:00 AM CDT Clinical Support [facility] at [address] [place] [phone] Prostate cancer (HCC); 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) 05/26/2025 Orders Only [facility] - Infusion [address] [facility] Floor [address] [place] [address] Rigoberto Walls [facility] 05/06/2025 Telephone [facility] Medicine Oncology [address] [place] [address] [address] [place] [address] Tierney Magana RN 05/05/2025 9:30 AM CDT Infusion [facility] at [address] [place] [address] 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); Prostate cancer (HCC) 05/05/2025 9:00 AM CDT Office Visit [facility] [address] [place] [address] [address] [place] [address] Gladis Savage, ALTON Prostate cancer (HCC); 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) 05/05/2025 8:00 AM CDT Clinical Support [facility] at [address] [place] [address] Prostate cancer (HCC); 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); Research study patient 05/05/2025 Documentation [facility] at [facility] 10 [facility] [place] [address] Maye Cottrell, BUFFY 05/03/2025 Orders Only [facility] [address] [place] [address] [address] [place] [address] Junaid Cifuentes MD PhD Research study patient 04/28/2025 7:42 AM CDT - 04/28/2025 11:59 PM CDT Hospital Encounter [facility] [address] [place] [address] Vida Weller, Paulette Perdomo RN Prostate cancer (HCC) Discharge Disposition: Discharge to home or self care 04/27/2025 Telephone [facility] [address] [place] [address] Padmini Webb RN from Last 3 Months Immunizations Immunization Administration [...] on file 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 Gender Identity Not on file Sexual Orientation Not on file Obstetrics History Last Filed Vital Signs Vital Sign Reading Time Taken Comments Blood Pressure 147/82 07/14/2025 8:48 AM CDT Pulse 59 07/14/2025 8:48 AM CDT Temperature 36.7 C (98 F) 07/14/2025 8:48 AM CDT Respiratory Rate 16 07/14/2025 8:48 AM CDT Oxygen Saturation 98% 07/14/2025 8:48 AM CDT Inhaled Oxygen Concentration - - Weight 57.6 kg (126 lb 15.8 oz) 07/14/2025 8:48 AM CDT Height 177 cm (5' 9.69) 05/05/2025 10: 25 AM CDT Body Mass Index 18.39 05/05/2025 10:25 AM CDT Plan of Treatment [...] 04/28/2026 04/28/2025 Prostate Cancer Screening-PSA Discontinued , 06/23/2025, 06/16/2025, Additional history exists Medical Devices Implanted Type Area Raise Drill Operator Device Identifier Shelf Expiration Date Model / Serial / Lot [employer] Excela Low Porfile Power Port 8fr 1.6mm 1 Lumen [id number] - [id number] Implanted:Qty: 1 on 04/28/2025 at [facility] [employer] 12/13/2029 [id number] / / [id number] Procedures Procedure Name Priority Date/Time Associated Diagnosis Comments EGFR STAT 07/14/2025 7:48 AM CDT Prostate cancer (HCC) 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) DIFFERENTIAL AUTO Routine 07/14/2025 7:48 AM CDT Prostate cancer (HCC) 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) PSA DIAGNOSTIC Routine 07/14/2025 7:48 AM CDT Prostate cancer (HCC) 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) CBC WITH AUTO DIFFERENTIAL Routine 07/14 7:48 AM CDT Prostate cancer (HCC) 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) COMPREHENSIVE METABOLIC PANEL STAT 7:48 AM CDT Prostate cancer (HCC) 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) EGFR STAT 06/23/2025 8:10 AM CDT Prostate cancer (HCC) 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) DIFFERENTIAL AUTO Routine 06/23/2025 8:10 AM CDT Prostate cancer (HCC) 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) CBC WITH AUTO DIFFERENTIAL Routine 06/23 8:10 AM CDT Prostate cancer (HCC) 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) COMPREHENSIVE METABOLIC PANEL STAT 8:10 AM CDT Prostate cancer (HCC) 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) IRON PROFILE W/ IBC Routine 06/23/2025 8:10 AM CDT Prostate cancer (HCC) 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) FERRITIN Routine 06/23/2025 8:10 AM CDT Prostate cancer (HCC) 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) PSA DIAGNOSTIC Routine 06/23/2025 8:10 AM CDT Prostate cancer (HCC) 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) EGFR STAT 06/16/2025 8:12 AM CDT Prostate cancer (HCC) 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) DIFFERENTIAL AUTO Routine 06/16/2025 8:12 AM CDT Prostate cancer (HCC) 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) PSA DIAGNOSTIC Routine 06/16/2025 8:12 AM CDT Prostate cancer (HCC) 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 73 [...] was last reviewed 2021. Testing performed by: [facility], [address] [place] [address] Blood 07/14/2025 7:48 AM CDT 07/14/2025 8:19 AM CDT Junaid Cifuentes MD PhD LAB BLOOD ORDERABLES Final Result [facility] [address] Department [place] [address] * (ABNORMAL) Differential, auto (07/14/2025 7:48 AM CDT) Neutrophil abs 12.29(H) 1.50 - 6.50 K/cumm Comment:Testing performed by : [facility] 2, [address] [place] [address] Imm gran abs 0.07 0.00 - 0.10 K/cumm CERNER BJWCH Comment:Testing performed by : [facility] 2, [address] [place] [address] Lymphocyte abs 0.64(L) 0.80 - 3.30 K/cumm GORAN BJWCH Comment:Testing performed by : [facility] 2, [address] [place] [address] Monocyte abs 0.76 0.20 - 0.80 K/cumm CERNER [facility]WCH Comment:Testing performed by : [facility] 2, [address] [place] [address] Eosinophil abs 0.01 0.00 - 0.50 K/cumm CERNICHOLE BJWCH Comment:Testing performed by : [facility] 2, [address] [place] [address] Basophil abs 0.03 0.00 - 0.10 K/cumm C[facility]IC[facility]LE [facility] Comment:Testing performed by : [facility] 2, [address] [place] [address] Neutrophil pct 89.1 % CERNER [facility] Comment: Interpretive Data Percent cell count reference ranges are not reported, since discordance with absolute values may lead to misinterpretation of CBC data. Current Interpretive Data was last revised on 2017. Testing performed by: [facility], [facility], [address] [place] [address] Imm gran pct 0.5 % CERNER [facility] Comment: Interpretive Data Percent cell count reference ranges are not reported, since discordance with absolute values may lead to misinterpretation of CBC data. Current Interpretive Data was last revised on 2017. Testing performed by: [facility], [facility], [address] [place] [address] Lymphocyte pct 4.6 % C[facility]ER [facility] Comment: Interpretive Data Percent cell count reference ranges are not reported, since discordance with absolute values may lead to misinterpretation of CBC data. Current Interpretive Data was last revised on 2017. Testing performed by: [facility], [facility], [address] [place] [address] Monocyte pct 5.5 % C[facility]ER [facility] Comment: Interpretive Data Percent cell count reference ranges are not reported, since discordance with absolute values may lead to misinterpretation of CBC data. Current Interpretive Data was last revised on 2017. Testing performed by: [facility], [facility], [address] [place] [address] Eosinophil pct 0.1 % C[facility]ER [facility] Comment: Interpretive Data Percent cell count reference ranges are not reported, since discordance with absolute values may lead to misinterpretation of CBC data. Current Interpretive Data was last revised on 2017. Testing performed by: [facility], [facility], [address] [place] [address] Basophil pct 0.2 % C[facility]ER [facility] Comment: Interpretive Data Percent cell count reference ranges are not reported, since discordance with absolute values may lead to misinterpretation of CBC data. Current Interpretive Data was last revised on 2017. Testing performed by: [facility], [facility], [address] [place] [address] Blood 07/14/2025 7:48 AM CDT 07/14/2025 7:50 AM CDT Junaid Cifuentes MD PhD LAB BLOOD ORDERABLES Final Result [facility] [address] [facility] Department [place] [address] * (ABNORMAL) CBC with auto differential (07/14/2025 7:48 AM CDT) WBC 13.80(H) 3.80 - 9.90 K/cumm Comment:Testing performed by : [facility] 2, [address] [place] [address] Hgb 11.1(L) 13.0 - 17.5 g/dL GORAN YOUSSEFW Comment:Testing performed by : [place] [address], [address] [place] [address] Hct 34.8(L) 38.9 - 50.3 % GORAN RASHEED Comment:Testing performed by : [facility] 2, [address] [place] [address] Plt 255 150 - 400 K/cumm [facility] Comment:Testing performed by : [place] [address], [address] [place] [address] MPV 10.0 9.1 - 12.3 fL [facility] YOUSSEFW Comment:Testing performed by : [facility] 2, [address] [place] [address] RBC 3.81(L) 4.30 - 5.80 M/cumm [facility]AN RASHEEDCH Comment:Testing performed by : [facility] 2, [address] [place] [address] MCV 91.3 81.3 - 96.4 fL CERNICHOLE B[facility]WCH Comment:Testing performed by : [facility], [facility], [address] [place] [address] MCH 29.1 27.1 - 33.3 pg [facility] HELM Comment:Testing performed by : [facility], [facility], [address] [place] [address] MCHC 31.9(L) 32.3 - 35.7 g/dL [facility]AN HELM Comment:Testing performed by : [facility], [facility], [address] [place] [address] RDW CV 14.6 11.1 - 14.9 % GORAN HELM Comment:Testing performed by : [facility] 2, [address] [place] [address] RDW SD 48.0 35.7 - 48.1 fL [facility]ORAN HELM Comment:Testing performed by : [facility], [facility], [address] [place] [address] ANC Prelim 12.29(H) 1.50 - 6.50 K/cumm GORAN HELM Comment: Interpretive Data The rapid ANC is a preliminary automated count and may vary from the final ANC (Neut Abs) reported in the WBC differential that follows. Current interpretive data was last revised 2024. Testing performed by: [facility], [facility], [address] [place] [address] Blood 07/14/2025 7:48 AM CDT 07/14/2025 7:50 AM CDT us Junaid Cifuentes MD PhD LAB BLOOD ORDERABLES Final Result [facility] [address] [facility] [place] of [employer] [place], [place] [id number] * (ABNORMAL) PSA diagnostic (07/14/2025 7:48 AM CDT) PSA-Total 16.83(H) <=6.20 ng/mL Comment: Interpretive Data AGE SEX [...] data last revised 22. Testing performed by: [facility], [address] [place] [address] Blood 07/14/2025 7:48 AM CDT 07/14/2025 8:19 AM CDT Junaid Cifuentes MD PhD LAB BLOOD ORDERABLES Final Result [facility] [address] Department [place] [address] * (ABNORMAL) Comprehensive metabolic panel (07/14/2025 7:48 AM CDT) Sodium 143 135 - 145 mmol/L Comment:Testing performed by : [facility], [address], [place] [address] Potassium, pl 4.3 3.3 - 4.9 mmol/L CERNIC[facility]LE B[facility]WCH Comment:Testing performed by : [facility], [address], [place] [address] Chloride 106 97 - 110 mmol/L C[facility]IC[facility]LE [facility] Comment:Testing performed by : [facility], [address] [place] [address] CO2 27 22 - 32 mmol/L [facility] Comment:Testing performed by : [facility], [address] [place] [address] Anion gap 10 2 - 15 mmol/L [facility]JW[facility] Comment:Testing performed by : [facility], [address] [place] [address] BUN 27(H) 6 - 25 mg/dL [facility]LE [facility] Comment:Testing performed by : [facility], [address], [place] [address] Creatinine 0.71(L) 0.80 - 1.30 mg/dL CERNER BJWCH Comment:Testing performed by : [facility], [address], [place] [address] Glucose 125 70 - 199 mg/dL CERNER BJWCH Comment: [...] was last revised 2022. Testing performed by: [facility], [address], [place] [address] Calcium 9.5 8.5 - 10.3 mg/dL CERNER BJWCH Comment:Testing performed by : [facility], [address], [place] [address] Bilirubin, total 0.2 0.1 - 1.2 mg/dL C[facility]ER BJWCH Comment:Testing performed by : [facility], [address], [place] [address] Protein, pl 6.1(L) 6.5 - 8.5 g/dL C[facility]ER [facility]WCH Comment:Testing performed by : [facility], [address], [place] [address] Albumin 3.8 3.5 - 5.0 g/dL C[facility]ER [facility] Comment:Testing performed by : [facility], [address], [place] [address] Alk phos 78 40 - 130 Units/L C[facility]ER [facility] Comment:Testing performed by : [facility], [address], [place] [address] ALT 14 7 - 55 Units/L [facility] Comment:Testing performed by : [facility], [address] [place] [address] AST 16 10 - 50 Units/L GORAN HELM Comment:Testing performed by : [facility], [address] [place] [address] Blood 07/14/2025 7:48 AM CDT 07/14/2025 8:19 AM CDT Junaid Cifuentes MD PhD LAB BLOOD ORDERABLES Final Result Performing Organization Address [facility] Co de Phone Number [facility] [address] Department [place] [address] * eGFR (06/23/2025 8:10 AM CDT) eGFR >90 >=60 mL/min/1. 73 [...] was last reviewed 2021. Testing performed by: [facility], [address] [place] [address] Blood 06/23/2025 8:10 AM CDT 06/23/2025 8:44 AM CDT us Junaid Cifuentes MD PhD LAB BLOOD ORDERABLES Final Result Performing Organization Address City/[facility]/ZIP Co de Phone Number [facility] [address] Department [place] [address] * (ABNORMAL) Differential, auto (06/23/2025 8:10 AM CDT) Neutrophil abs 7.77(H) 1.50 - 6.50 K/cumm Comment:Testing performed by : [place] [address], [address] [place] [address] Imm gran abs 0.05 0.00 - 0.10 K/cumm C[facility]ER [facility] Comment:Testing performed by : [place] [address], [address] [place] [address] Lymphocyte abs 0.51(L) 0.80 - 3.30 K/cumm C[facility] Comment:Testing performed by : [place] [address], [address] [place] [address] Monocyte abs 0.45 0.20 - 0.80 K/cumm C[facility]ER [facility] Comment:Testing performed by : [place] [address], [address] [place] [address] Eosinophil abs 0.01 0.00 - 0.50 K/cumm C[facility]ER [facility] Comment:Testing performed by : [facility] 2, [address] [place] [address] Basophil abs 0.02 0.00 - 0.10 K/cumm C[facility]ER [facility] Comment:Testing performed by : [place] [address], [address] [place] [address] Neutrophil pct 88.2 % CERNER B[facility]WCH Comment: Interpretive Data Percent cell count reference ranges are not reported, since discordance with absolute values may lead to misinterpretation of CBC data. Current Interpretive Data was last revised on 2017. Testing performed by: [facility] 2, [address] [place] [address] Imm gran pct 0.6 % CERNER BJW[facility] Comment: Interpretive Data Percent cell count reference ranges are not reported, since discordance with absolute values may lead to misinterpretation of CBC data. Current Interpretive Data was last revised on 2017. Testing performed by: [facility], [facility], [address] [place] [address] Lymphocyte pct 5.8 % CERNICHOLE HELM Comment: Interpretive Data Percent cell count reference ranges are not reported, since discordance with absolute values may lead to misinterpretation of CBC data. Current Interpretive Data was last revised on 2017. Testing performed by: [facility], [facility] [facility] [place] [facility], [address] [place] [address] Monocyte pct 5.1 % CERNICHOLE HELM Comment: Interpretive Data Percent cell count reference ranges are not reported, since discordance with absolute values may lead to misinterpretation of CBC data. Current Interpretive Data was last revised on 2017. Testing performed by: [facility], [facility] [place] [facility], [address] [place] [address] Eosinophil pct 0.1 % CERNICHOLE YOUSSEFESTEBAN Comment: Interpretive Data Percent cell count reference ranges are not reported, since discordance with absolute values may lead to misinterpretation of CBC data. Current Interpretive Data was last revised on 2017. Testing performed by: [facility], [facility] [place] [facility], [address] [place] [address] Basophil pct 0.2 % GORAN HELM Comment: Interpretive Data Percent cell count reference ranges are not reported, since discordance with absolute values may lead to misinterpretation of CBC data. Current Interpretive Data was last revised on 2017. Testing performed by: [facility], [facility] [place] [facility], [address] [place] [address] Blood 06/23/2025 8:10 AM CDT 06/23/2025 8:15 AM CDT us Junaid Cifuentes MD PhD LAB BLOOD ORDERABLES Final Result GORAN YOUSSEFCH [address] [facility] [place] [address] * Iron profile w/ IBC (06/23/2025 8:10 AM CDT) [facility] Iron 68 50 - 150 mcg/dL Comment:Testing performed by : [facility], [address] [place] [address]., [address] TIBC 251 250 - 400 mcg/dL GORAN HELM Comment:Testing performed by : [facility], [address] [place] [address]., [address] Transferrin saturation 27 20 - 50 % GORAN HELM Comment:Testing performed by : [facility], [address] [place] [address]., [address] Blood 06/23/2025 8:10 AM CDT 06/23/2025 10:04 AM CDT Gladis Savage PATIENT CARE LAB BLOOD ORDERABLES Final Result Performing Organization Address City/State/[facility] Co de Phone Number GORAN HELM [address] [facility] Department [place] [address] * (ABNORMAL) CBC with auto differential (06/23/2025 8:10 AM CDT) [facility] WBC 8.81 3.80 - 9.90 K/cumm Comment:Testing performed by : [facility] 2, [address] [place] [address] Hgb 11.7(L) 13.0 - 17.5 g/dL GORAN HELM Comment:Testing performed by : [facility] 2, [address] [place] [address] Hct 36.7(L) 38.9 - 50.3 % GORAN HELM Comment:Testing performed by : [facility], [facility] [place] [facility], [address] [place] [address] Plt 298 150 - 400 K/cumm GORAN HELM Comment:Testing performed by : [facility] 2, [address] [place] [address] MPV 9.8 9.1 - 12.3 fL CERNER BJWCH Comment:Testing performed by : [place] [address], [address] [place] [address] RBC 4.10(L) 4.30 - 5.80 M/cumm CERNER BJWCH Comment:Testing performed by : [place] [address] [place] [address] MCV 89.5 81.3 - 96.4 fL CERNER BJWCH Comment:Testing performed by : [place] [address] [place] [address] MCH 28.5 27.1 - 33.3 pg CERNER BJWCH Comment:Testing performed by : [place] [address] [place] [address] MCHC 31.9(L) 32.3 - 35.7 g/dL CERNER BJWCH Comment:Testing performed by : [place] [address] [place] [address] RDW CV 13.8 11.1 - 14.9 % CERNER BJWCH Comment:Testing performed by : [address] [place] [address] RDW SD 45.0 35.7 - 48.1 fL CERNER BJWCH Comment:Testing performed by : [place] [address] [place] [address] ANC Prelim 7.77(H) 1.50 - 6.50 K/cumm CERNER BJWCH Comment: Interpretive Data The rapid ANC is a preliminary automated count and may vary from the final ANC (Neut Abs) reported in the WBC differential that follows. Current interpretive data was last revised 2024. Testing performed by: [place] [address] [place] [address] Blood 06/23/2025 8:10 AM CDT 06/23/2025 8:15 AM CDT Junaid Cifuentes MD PhD LAB BLOOD ORDERABLES Final Result Performing Organization Address City/[facility]/ZIP Co de Phone Number [facility] [address] [facility]. [facility] [place] [address] * (ABNORMAL) PSA diagnostic (06/23/2025 8:10 AM CDT) PSA-Total 28.45(H) <=6.20 ng/mL Comment: Interpretive Data AGE SEX [...] data last revised 22. Testing performed by: [facility], [address] [facility], [place] [address] Blood 06/23/2025 8:10 AM CDT 06/23/2025 8:44 AM CDT Gladis Savage NP LAB BLOOD ORDERABLES Final Result Performing Organization Address [facility] de Phone Number GORAN YOUSSEFCH [address] [facility]. [facility] [place] [address] * Ferritin (06/23/2025 8:10 AM CDT) Ferritin 239 30 - 400 ng/mL Comment:Testing performed by : [facility], [facility] [place] [facility] [facility], [place]., [address] Blood 06/23/2025 8:10 AM CDT 06/23/2025 10:04 AM CDT Gladis Savage PATIENT CARE LAB BLOOD ORDERABLES Final Result Performing Organization Address City/[facility] Co de Phone Number [facility] [address] [address] Department [place] [address] * (ABNORMAL) Comprehensive metabolic panel (06/23/2025 8:10 AM CDT) Sodium 142 135 - 145 mmol/L Comment:Testing performed by : [facility], [address], [place] [address] Potassium, pl 4.2 3.3 - 4.9 mmol/L CERNER BJWCH Comment:Testing performed by : [facility], [address], [place] [address] Chloride 104 97 - 110 mmol/L CERNER BJWCH Comment:Testing performed by : [facility], [address], [place] [address] CO2 30 22 - 32 mmol/L CERNER BJWCH Comment:Testing performed by : [facility], [address], [place] [address] Anion gap 8 2 - 15 mmol/L CERNER BJWCH Comment:Testing performed by : [facility], [address], [place] [address] BUN 23 6 - 25 mg/dL CERNER BJWCH Comment:Testing performed by : [facility], [address], [place] [address] Creatinine 0.71(L) 0.80 - 1.30 mg/dL CERNER BJWCH Comment:Testing performed by : [facility], [address], [place] [address] Glucose 124 70 - 199 mg/dL CERNER BJWCH Comment: [...] was last revised 2022. Testing performed by: [facility], [address], [place] [address] Calcium 9.8 8.5 - 10.3 mg/dL CERNER BJWCH Comment:Testing performed by : [facility], [address], [place] [address] Bilirubin, total 0.3 0.1 - 1.2 mg/dL CERNER BJWCH Comment:Testing performed by : [facility], [address], [place] [address] Protein, pl 6.5 6.5 - 8.5 g/dL CERNER BJWCH Comment:Testing performed by : [facility], [address], [place] [address] Albumin 4.1 3.5 - 5.0 g/dL CERNER BJWCH Comment:Testing performed by : [facility], [address], [place] [address] Alk phos 68 40 - 130 Units/L CERNER BJWCH Comment:Testing performed by : [facility], [address], [place] [address] ALT 12 7 - 55 Units/L CERNER BJWCH Comment:Testing performed by : [facility], [address], [place] [address] AST 18 10 - 50 Units/L CERNER BJWCH Comment:Testing performed by : [facility], [address], [place] [address] Blood 06/23/2025 8:10 AM CDT 06/23/2025 8:44 AM CDT us Junaid Cifuentes MD PhD LAB BLOOD ORDERABLES Final Result GORAN BJWCH [address] Department [place] [address] * eGFR (06/16/2025 8:12 AM CDT) eGFR >90 >=60 mL/min/1. 73 [...] was last reviewed 2021. Testing performed by: [facility], [address] [place] [address] Blood 06/16/2025 8:12 AM CDT 06/16/2025 8:46 AM CDT us Junaid Cifuentes MD PhD LAB BLOOD ORDERABLES Final Result [facility] [address] [address] Department [place] [address] * (ABNORMAL) Differential, auto (06/16/2025 8:12 AM CDT) Neutrophil abs 10.94(H) 1.50 - 6.50 K/cumm Comment:Testing performed by : [facility], [place] [facility], [address] [place] [address] Imm gran abs 0.10 0.00 - 0.10 K/cumm GORAN HELM Comment:Testing performed by : [facility], [facility] [place] [facility], [address] [place] [address] Lymphocyte abs 0.67(L) 0.80 - 3.30 K/cumm GORAN HELM Comment:Testing performed by : [facility], [facility] [place] [facility], [address], [place] [address] Monocyte abs 0.87(H) 0.20 - 0.80 K/cumm CERNER BJWCH Comment:Testing performed by : [facility], [facility] [place] [facility], [address] [place] [address] Eosinophil abs 0.00 0.00 - 0.50 K/cumm CERNER BJWCH Comment:Testing performed by : [facility], [facility] [place] [facility], [address], [place] [address] Basophil abs 0.02 0.00 - 0.10 K/cumm CERNER BJWCH Comment:Testing performed by : [facility], [facility] [place] [facility], [address] [place] [address] Neutrophil pct 86.8 % CERNER BJWCH Comment: Interpretive Data Percent cell count reference ranges are not reported, since discordance with absolute values may lead to misinterpretation of CBC data. Current Interpretive Data was last revised on 2017. Testing performed by: [facility], [facility] [place] [facility], [address] [place] [address] Imm gran pct 0.8 % CERNER BJWCH Comment: Interpretive Data Percent cell count reference ranges are not reported, since discordance with absolute values may lead to misinterpretation of CBC data. Current Interpretive Data was last revised on 2017. Testing performed by: [facility], [facility] [place] [facility], [address], [place] [address] Lymphocyte pct 5.3 % CERNER BJWCH Comment: Interpretive Data Percent cell count reference ranges are not reported, since discordance with absolute values may lead to misinterpretation of CBC data. Current Interpretive Data was last revised on 2017. Testing performed by: [facility], [facility] [place] [facility], [address] [place] [address] Monocyte pct 6.9 % CERNER BJWCH Comment: Interpretive Data Percent cell count reference ranges are not reported, since discordance with absolute values may lead to misinterpretation of CBC data. Current Interpretive Data was last revised on 2017. Testing performed by: [facility], [facility] [place] [facility], [address] [place] [address] Eosinophil pct 0.0 % GORAN HELM Comment: Interpretive Data Percent cell count reference ranges are not reported, since discordance with absolute values may lead to misinterpretation of CBC data. Current Interpretive Data was last revised on 2017. Testing performed by: [facility] 2, [address] [place] [address] Basophil pct 0.2 % GORAN HELM Comment: Interpretive Data Percent cell count reference ranges are not reported, since discordance with absolute values may lead to misinterpretation of CBC data. Current Interpretive Data was last revised on 2017. Testing performed by: [facility] 2, [address] [place] [address] Blood 06/16/2025 8:1 2 AM CDT 06/16/2025 8:20 AM CDT Junaid Cifuentes MD PhD LAB BLOOD ORDERABLES Final Result [facility] [address] [facility] Department [place] [address] * (ABNORMAL) CBC with auto differential (06/16/2025 8:12 AM CDT) WBC 12.60(H) 3.80 - 9.90 K/cumm Comment:Testing performed by : [facility], [facility] [place] [facility], [address] [place] [address] Hgb 10.8(L) 13.0 - 17.5 g/dL GORAN HELM Comment:Testing performed by : [facility] 2, [address] [place] [address] Hct 33.7(L) 38.9 - 50.3 % GORAN HELM Comment:Testing performed by : [facility] 2, [address] [place] [address] Plt 299 150 - 400 K/cumm CERNER BJWCH Comment:Testing performed by : [place] [address], [address] [place] [address] MPV 10.3 9.1 - 12.3 fL CERNER BJWCH Comment:Testing performed by : [place] [address], [address] [place] [address] RBC 3.73(L) 4.30 - 5.80 M/cumm CERNER BJWCH Comment:Testing performed by : [place] [address], [address], [place] [address] MCV 90.3 81.3 - 96.4 fL CERNER BJWCH Comment:Testing performed by : [place] [address], [address], [place] [address] MCH 29.0 27.1 - 33.3 pg CERNICHOLE BJWCH Comment:Testing performed by : [place] [address], [address], [place] [address] MCHC 32.0(L) 32.3 - 35.7 g/dL CERNER BJWCH Comment:Testing performed by : [place] [address], [address] [place] [address] RDW CV 13.2 11.1 - 14.9 % CERNICHOLE BJWCH Comment:Testing performed by : [address] [place] [address] RDW SD 43.7 35.7 - 48.1 fL CERNER BJWCH Comment:Testing performed by : [place] [address], [address], [place] [address] ANC Prelim 10.94(H) 1.50 - 6.50 K/cumm CERNER BJWCH Comment: Interpretive Data The rapid ANC is a preliminary automated count and may vary from the final ANC (Neut Abs) reported in the WBC differential that follows. Current interpretive data was last revised 2024. Testing performed by: [place] [address], [address] [place] [address] Blood 06/16/2025 8:12 AM CDT 06/16/2025 8:20 AM CDT Junaid Cifuentes MD PhD LAB BLOOD ORDERABLES Final Result Performing Organization Address [facility] Co de Phone Number GORAN YOUSSEFCH [address] [facility]. Department [place] [address] * (ABNORMAL) PSA diagnostic (06/16/2025 8:12 AM CDT) PSA-Total 29.53(H) <=6.20 ng/mL Comment: Interpretive Data AGE SEX [...] data last revised 22. Testing performed by: [facility], [address] [place] [address] Blood 06/16/2025 8:12 AM CDT 06/16/2025 8:46 AM CDT Junaid Cifuentes MD PhD LAB BLOOD ORDERABLES Final Result Performing Organization Address [facility] Co de Phone Number GORAN YOUSSEFWCH [address] Department [place] [address] * (ABNORMAL) Comprehensive metabolic panel (06/16/2025 8:12 AM CDT) Sodium 141 135 - 145 mmol/L Comment:Testing performed by : [facility], [address] [place] [address] Potassium, pl 4.2 3.3 - 4.9 mmol/L GORAN HELM Comment:Testing performed by : [facility], [address], [place] [address] Chloride 103 97 - 110 mmol/L CERNER BJWCH Comment:Testing performed by : [facility], [address], [place] [address] CO2 29 22 - 32 mmol/L CERNER BJWCH Comment:Testing performed by : [facility], [address], [place] [address] Anion gap 9 2 - 15 mmol/L CERNER BJWCH Comment:Testing performed by : [facility], [address], [place] [address] BUN 22 6 - 25 mg/dL CERNER BJWCH Comment:Testing performed by : [facility], [address], [place] [address] Creatinine 0.72(L) 0.80 - 1.30 mg/dL CERNER BJWCH Comment:Testing performed by : [facility], [address], [place] [address] Glucose 133 70 - 199 mg/dL CERNER BJWCH Comment: [...] was last revised 2022. Testing performed by: [facility], [address], [place] [address] Calcium 9.2 8.5 - 10.3 mg/dL CERNER BJWCH Comment:Testing performed by : [facility], [address], [place] [address] Bilirubin, total 0.2 0.1 - 1.2 mg/dL CERNER BJWCH Comment:Testing performed by : [facility], [address], [place] [address] Protein, pl 6.0(L) 6.5 - 8.5 g/dL CERNER BJWCH Comment:Testing performed by : [facility], [address], [place] [address] Albumin 3.8 3.5 - 5.0 g/dL CERNER BJWCH Comment:Testing performed by : [facility], [address], [place] [address] Alk phos 67 40 - 130 Units/L CERNER BJWCH Comment:Testing performed by : [facility], [address], [place] [address] ALT 12 7 - 55 Units/L CERNER BJWCH Comment:Testing performed by : [facility], [address], [place] [address] AST 17 10 - 50 Units/L CERNER BJWCH Comment:Testing performed by : [facility], [address], [place] [address] Blood 06/16/2025 8:12 AM CDT 06/16/2025 8:46 AM CDT Junaid Cifuentes MD PhD LAB BLOOD ORDERABLES Final Result [facility]SEFW[facility] [address] [address] Department [place] [address] * SCAN - RADIOLOGY/IMAGING (06/14/2025) Anatomical Region Laterality Modality Other us Provider Scanning Final Result * eGFR (05/26/2025 7:55 AM CDT) eGFR [...] was last reviewed 2021. Testing performed by: [facility], [address] [place] [address] Blood 05/26/2025 7:55 AM CDT 05/26/2025 8:23 AM CDT us Junaid Cifuentes MD PhD LAB BLOOD ORDERABLES Final Result [facility] [address] [address]. Department of Laboratories [place] [id number] * (ABNORMAL) Differential, auto (05/26/2025 7:55 AM CDT) Neutrophil abs 7.67(H) 1.50 - 6.50 K/cumm Comment:Testing performed by : [facility], [facility] [place], [address] [place] [address] Imm gran abs 0.04 0.00 - 0.10 K/cumm GORAN HELM Comment:Testing performed by : [facility] 2, [address] [place] [address] Lymphocyte abs 0.99 0.80 - 3.30 K/cumm GORAN HELM Comment:Testing performed by : [facility] 2, [address] [place] [address] Monocyte abs 0.58 0.20 - 0.80 K/cumm GORAN HELM Comment:Testing performed by : [facility] 2, [address] [place] [address] Eosinophil abs 0.00 0.00 - 0.50 K/cumm CERNER BJWCH Comment:Testing performed by : [facility], [facility] [place] [facility], [address] [place] [address] Basophil abs 0.02 0.00 - 0.10 K/cumm CERNER BJWCH Comment:Testing performed by : [facility], [facility] [place] [facility], [address] [place] [address] Neutrophil pct 82.6 % CERNER BJWCH Comment: Interpretive Data Percent cell count reference ranges are not reported, since discordance with absolute values may lead to misinterpretation of CBC data. Current Interpretive Data was last revised on 2017. Testing performed by: [facility], [facility] [place] [facility], [address] [place] [address] Imm gran pct 0.4 % CERNER BJWCH Comment: Interpretive Data Percent cell count reference ranges are not reported, since discordance with absolute values may lead to misinterpretation of CBC data. Current Interpretive Data was last revised on 2017. Testing performed by: [facility], [facility] [place] [facility], [address] [place] [address] Lymphocyte pct 10.6 % CERNER BJWCH Comment: Interpretive Data Percent cell count reference ranges are not reported, since discordance with absolute values may lead to misinterpretation of CBC data. Current Interpretive Data was last revised on 2017. Testing performed by: [facility] 2, [address] [place] [address] Monocyte pct 6.2 % CERNER BJWCH Comment: Interpretive Data Percent cell count reference ranges are not reported, since discordance with absolute values may lead to misinterpretation of CBC data. Current Interpretive Data was last revised on 2017. Testing performed by: [facility], [facility] [place] [facility], [address] [place] [address] Eosinophil pct 0.0 % CERNER BJWCH Comment: Interpretive Data Percent cell count reference ranges are not reported, since discordance with absolute values may lead to misinterpretation of CBC data. Current Interpretive Data was last revised on 2017. Testing performed [facility]: [facility], [address] [place] [address] Basophil pct 0.2 % GORAN HELM Comment: Interpretive Data Percent cell count reference ranges are not reported, since discordance with absolute values may lead to misinterpretation of CBC data. Current Interpretive Data was last revised on 2017. Testing performed by: [facility] 2, [address] [place] [address] Blood 05/26/2025 7:55 AM CDT 05/26/2025 7:56 AM CDT us Junaid Cifuentes MD PhD LAB BLOOD ORDERABLES Final Result GORAN HELM [address] [facility]. Department [place] [address] * (ABNORMAL) CBC with auto differential (05/26/2025 7:55 AM CDT) WBC 9.30 3.80 - 9.90 K/cumm Comment:Testing performed by : [facility] 2, [address] [place] [address] Hgb 14.1 13.0 - 17.5 g/dL GORAN HELM Comment:Testing performed by : [address] [place] [address] Hct 43.1 38.9 - 50.3 % GORAN HELM Comment:Testing performed by : [place] [address], [address] [place] [address] Plt 211 150 - 400 K/cumm GORAN HELM Comment:Testing performed by : [place] [address], [address] [place] [address] MPV 10.1 9.1 - 12.3 fL GORAN HELM Comment:Testing performed by : [place] [address], [address] [place] [address] RBC 4.81 4.30 - 5.80 M/cumm [facility] Comment:Testing performed by : [facility], [facility] [place] [facility], [address] [place] [address] MCV 89.6 81.3 - 96.4 fL [facility] Comment:Testing performed by : [facility], [facility] [place], [address] [place] [address] MCH 29.3 27.1 - 33.3 pg [facility] Comment:Testing performed by : [facility], [facility] [place] [facility], [address] [place] [address] MCHC 32.7 32.3 - 35.7 g/dL [facility] Comment:Testing performed by : [facility], [facility] [place] [facility], [address] [place] [address] RDW CV 12.7 11.1 - 14.9 % [facility] Comment:Testing performed by : [facility] 2, [address] [place] [address] RDW SD 41.5 35.7 - 48.1 fL [facility] Comment:Testing performed by : [facility], [facility] [place], [address] [place] [address] ANC Prelim 7.67(H) 1.50 - 6.50 K/cumm [facility] Comment: Interpretive Data The rapid ANC is a preliminary automated count and may vary from the final ANC (Neut Abs) reported in the WBC differential that follows. Current interpretive data was last revised 2024. Testing performed by: [facility], [facility], [address] [place] [address] Blood 05/26/2025 7:55 AM CDT 05/26/2025 7:56 AM CDT us Junaid Cifuentes MD PhD LAB BLOOD ORDERABLES Final Result [facility] [address] [facility] of [employer] [place], [place] [id number] * 1,25 Dihydroxycholecalciferol (05/26/2025 7:55 AM CDT) Pathologist [facility] 1-25-di-OH Vit D 35 18 - 64 pg/mL [facility] Comment: ADDITIONAL INFORMATION This test was developed and its performance characteristics determined by [facility] in a manner consistent with CLIA requirements. This test has not been cleared or approved by the U.S. Food and Drug Administration. Test Performed by: [facility] Laboratories - [facility] [address] [place] [address] Sales Lead Generator: Angelique Gomez Ph.D.; CLIA# [id number] Testing performed by: [facility], [address] [place] [address] Blood 05/26/2025 7:55 AM CDT 05/26/2025 10:06 AM CDT us Junaid Cifuentes MD PhD LAB BLOOD ORDERABLES Final Result [facility] [address] Department [place] [address] [place] * (ABNORMAL) PSA diagnostic (05/26/2025 7:55 AM CDT) Pathologist [facility] PSA-Total 47.94(H) <=6.20 ng/mL Comment: Interpretive Data [...] data last revised 22. Testing performed by: [facility], [address], [place] [address] Blood 05/26/2025 7:55 AM CDT 05/26/2025 8:23 AM CDT us Junaid Cifuentes MD PhD LAB BLOOD ORDERABLES Final Result [facility] [address] Department [place] [address] * (ABNORMAL) Comprehensive metabolic panel (05/26/2025 7:55 AM CDT) Sodium 141 135 - 145 mmol/L Comment:Testing performed by : [facility], [address], [place] [address] Potassium, pl 4.3 3.3 - 4.9 mmol/L [facility] Comment:Testing performed by : [facility], [address], [place] [address] Chloride 101 97 - 110 mmol/L [facility] Comment:Testing performed by : [facility], [address], [place] [address] CO2 30 22 - 32 mmol/L [facility] Comment:Testing performed by : [facility], [address], [place] [address] Anion gap 10 2 - 15 mmol/L [facility] Comment:Testing performed by : [facility], [address], [place] [address] BUN 22 6 - 25 mg/dL [facility] Comment:Testing performed by : [facility], [address], [place] [address] Creatinine 0.90 0.80 - 1.30 mg/dL [facility] Comment:Testing performed by : [facility], [address], [place] [address] Glucose 152 70 - 199 mg/dL CERNER [...] was last revised 2022. Testing performed by: [facility], [address], [place] [address] Calcium 9.6 8.5 - 10.3 mg/dL [facility] Comment:Testing performed by : [facility], [address], [place] [address] Bilirubin, total 0.3 0.1 - 1.2 mg/dL [facility] Comment:Testing performed by : [facility], [address], [place] [address] Protein, pl 6.4(L) 6.5 - 8.5 g/dL [facility] Comment:Testing performed by : [facility], [address], [place] [address] Albumin 4.4 3.5 - 5.0 g/dL [facility] Comment:Testing performed by : [facility], [address], [place] [address] Alk phos 76 40 - 130 Units/L [facility] Comment:Testing performed by : [facility], [address], [place] [address] ALT 19 7 - 55 Units/L [facility] Comment:Testing performed by : [facility], [address], [place] [address] AST 18 10 - 50 Units/L [facility] Comment:Testing performed by : [facility], [address], [place] [address] Blood 05/26/2025 7:55 AM CDT 05/26/2025 8:23 AM CDT Junaid Cifuentes MD PhD LAB BLOOD ORDERABLES Edited Result - Final [facility] [address] Department of Laboratories [place], [place] [id number] * (ABNORMAL) Urinalysis reflex to microscopic (05/05/2025 8:30 AM CDT) Color, ur Straw Yellow Comment:Testing performed by : [facility], [address], [place] [address] Clarity, ur Clear Clear [facility] Comment:Testing performed by : [facility], [address], [place] [address] Specific gravity, ur 1.022 1.003 - 1.030 [facility] Comment:Testing performed by : [facility], [address], [place] [address] pH, urine 6.0 [facility] Comment: Interpretive Data U rine pH is affected by diet, medications, systemic acid-base disturbances, and renal tubular function. pH may affect urinary stone formation. For example, urine pH below 6.0 may help reduce the tendency for calcium phosphate stones and pH greater than 6.0 may reduce the tendency for uric acid stone formation. Source: [facility] REGISTRAT-MAPI Current Interpretive Data was last revised on 2017 Testing performed by: [facility], [address], [place] [address] Protein, ur ql 1+(A) Negative [facility] Comment:Testing performed by : [facility], [address], [place] [address] Glucose, ur ql Negative Negative [facility] Comment:Testing performed by : [facility], [address], [place] [address] Ketones, ur Negative Negative [facility] Comment:Testing performed by : [facility], [address], [place] [address] Bilirubin, ur Negative Negative [facility] Comment:Testing performed by : [facility], [address], [place] [address] Blood, ur 2+(A) Negative [facility] Comment:Testing performed by : [facility], [address], [place] [address] Urobilinogen, ur <2.0 <2.0 mg/dL GOR[facility] HELM Comment:Testing performed by : [facility], [address], [place] [address] Nitrite, ur Negative Negative GORAN HELM Comment:Testing performed by : [facility], [address], [place] [address] Leukocyte esterase, ur Negative Negative GORAN HELM Comment:Testing performed by : [facility], [address], [place] [address] UA reflex comment Reflex to microscopic UA will be performed. [facility]ORAN HELM Comment:Testing performed by : [facility], [address], [place] [address] Urine 05/05/2025 8:30 AM CDT 05/05/2025 9:20 AM CDT Junaid Cifuentes MD PhD LAB URINE ORDERABLES Final Result [facility] [address] Department [place] [address] * (ABNORMAL) Urinalysis, microscopic only (05/05/2025 8:30 AM CDT) WBC, ur 0-5 0 - 5 /HPF Comment:Testing performed by : [facility], [address], [place] [address] RBC, ur 6-10(A) 0 - 2 /HPF G[facility]AN HELM Comment:Testing performed by : [facility], [address], [place] [address] Mucous, ur Present(A) GORAN HELM Comment:Testing performed by : [facility], [address], [place] [address] Urine 05/05/2025 8:30 AM CDT 05/05/2025 9:20 AM CDT Junaid Cifuentes MD PhD LAB URINE ORDERABLES Final Result Performing Organization Address [facility] Co de Phone Number [facility] [address] [facility]. [place] [address] * eGFR (05/05/2025 8:28 AM CDT) eGFR [...] was last reviewed 2021. Testing performed by: [facility], [address] [place] [address], [place] [address] Blood 05/05/2025 8:28 AM CDT 05/05/2025 8:49 AM CDT Junaid Cifuentes MD PhD LAB BLOOD ORDERABLES Final Result Performing Organization Address City/[facility] Co de Phone Number [facility] [address] [facility] [place] [address] * (ABNORMAL) Differential, auto (05/05/2025 8:28 AM CDT) Neutrophil abs 5.58 1.50 - 6.50 K/cumm Comment:Testing performed by : [facility], [facility] [address], [address] [place] [address] Imm gran abs 0.03 0.00 - 0.10 K/cumm [facility]ER [facility] Comment:Testing performed by : [facility], [facility], [address] [place] [address] Lymphocyte abs 0.47(L) 0.80 - 3.30 K/cumm C[facility]ER [facility] Comment:Testing performed by : [facility], [facility], [address] [place] [address] Monocyte abs 0.38 0.20 - 0.80 K/cumm C[facility]ER [facility] Comment:Testing performed by : [facility], [facility], [address] [place] [address] Eosinophil abs 0.01 0.00 - 0.50 K/cumm [facility]ER [facility] Comment:Testing performed by : [facility] 2, [address] [place] [address] Basophil abs 0.01 0.00 - 0.10 K/cumm [facility]ER [facility] Comment:Testing performed by : [facility], [facility], [address] [place] [address] Neutrophil pct 85.9 % [facility] Comment: Interpretive Data Percent cell count reference ranges are not reported, since discordance with absolute values may lead to misinterpretation of CBC data. Current Interpretive Data was last revised on 2017. Testing performed by: [facility], [facility], [address] [place] [address] Imm gran pct 0.5 % [facility] Comment: Interpretive Data Percent cell count reference ranges are not reported, since discordance with absolute values may lead to misinterpretation of CBC data. Current Interpretive Data was last revised on 2017. Testing performed by: [facility], [facility], [address] [place] [address] Lymphocyte pct 7.3 % [facility] Comment: Interpretive Data Percent cell count reference ranges are not reported, since discordance with absolute values may lead to misinterpretation of CBC data. Current Interpretive Data was last revised on 2017. Testing performed by: [facility], [facility], [address] [place] [address] Monocyte pct 5.9 % GORAN HELM Comment: Interpretive Data Percent cell count reference ranges are not reported, since discordance with absolute values may lead to misinterpretation of CBC data. Current Interpretive Data was last revised on 2017. Testing performed by: [facility], [facility], [address] [place] [address] Eosinophil pct 0.2 % GORAN HELM Comment: Interpretive Data Percent cell count reference ranges are not reported, since discordance with absolute values may lead to misinterpretation of CBC data. Current Interpretive Data was last revised on 2017. Testing performed by: [facility], [facility], [address] [place] [address] Basophil pct 0.2 % G[facility]AN HELM Comment: Interpretive Data Percent cell count reference ranges are not reported, since discordance with absolute values may lead to misinterpretation of CBC data. Current Interpretive Data was last revised on 2017. Testing performed by: [facility], [facility], [address] [place] [address] Blood 05/05/2025 8:28 AM CDT 05/05/2025 8:34 AM CDT Junaid Cifuentes MD PhD LAB BLOOD ORDERABLES Final Result [facility] [address] [facility] Department [place] [address] * CBC with auto differential (05/05/2025 8:28 AM CDT) WBC 6.48 3.80 - 9.90 K/cumm Comment:Testing performed by : [facility], [facility], [address] [place] [address] Hgb 13.5 13.0 - 17.5 g/dL [facility]ER [facility] Comment:Testing performed by : [facility], [facility], [address], [place] [address] Hct 40.5 38.9 - 50.3 % C[facility]ER [facility] Comment:Testing performed by : [facility] 2, [address], [place] [address] Plt 199 150 - 400 K/cumm C[facility]ER [facility] Comment:Testing performed by : [place] [address], [address], [place] [address] MPV 10.5 9.1 - 12.3 fL C[facility]ER [facility] Comment:Testing performed by : [place] [address], [address], [place] [address] RBC 4.61 4.30 - 5.80 M/cumm C[facility]ER [facility] Comment:Testing performed by : [place] [address], [address], [place] [address] MCV 87.9 81.3 - 96.4 fL C[facility]ER [facility] Comment:Testing performed by : [place] [address], [address], [place] [address] MCH 29.3 27.1 - 33.3 pg [facility]ER [facility] Comment:Testing performed by : [place] [address], [address] [place] [address] MCHC 33.3 32.3 - 35.7 g/dL [facility] Comment:Testing performed by : [place] [address], [address], [place] [address] RDW CV 12.5 11.1 - 14.9 % [facility]ER [facility] Comment:Testing performed by : [place] [address], [address], [place] [address] RDW SD 40.3 35.7 - 48.1 fL [facility]ER [facility] Comment:Testing performed by : [place] [address], [address], [place] [address] ANC Prelim 5.58 1.50 - 6.50 K/cumm GORAN HELM Comment: Interpretive Data The rapid ANC is a preliminary automated count and may vary from the final ANC (Neut Abs) reported in the WBC differential that follows. Current interpretive data was last revised 2024. Testing performed by: [facility], [facility] [address], [address], [place] [address] Blood 05/05/2025 8:28 AM CDT 05/05/2025 8:34 AM CDT Junaid Cifuentes MD PhD LAB BLOOD ORDERABLES Final Result Performing Organization Address City/[facility]/ZIP Co de Phone Number [facility] [address] [facility]. [facility] [place] [address] * Uric acid (05/05/2025 8:28 AM CDT) Uric acid 3.5 3.0 - 8.0 mg/dL Comment:Testing performed by : [facility], [address], [place] [address] Blood 05/05/2025 8:28 AM CDT 05/05/2025 8:49 AM CDT Junaid Cifuentes MD PhD LAB BLOOD ORDERABLES Final Result Performing Organization Address City/[facility] Co de Phone Number [facility] [address] [facility]. [facility] [place] [address] * Triglycerides (05/05/2025 8:28 AM CDT) Triglycerides [...] last revised on 2018. Testing performed by: [facility], [address] [place], [place] [address] [address] Blood 05/05/2025 8:28 AM CDT 05/05/2025 8:49 AM CDT Junaid Cifuentes MD PhD LAB BLOOD ORDERABLES Final Result Performing Organization Address City/[facility] Co de Phone Number [facility] [address] [facility] [place] [address] * (ABNORMAL) PSA diagnostic (05/05/2025 8:28 AM CDT) Pathologist [facility] PSA-Total 61.58(H) <=6.20 ng/mL Comment: Interpretive Data [...] data last revised 22. Testing performed by: [facility], [address] [place] [address] [place] [address] Blood 05/05/2025 8:28 AM CDT 05/05/2025 8:49 AM CDT us Junaid Cifuentes MD PhD LAB BLOOD ORDERABLES Final Result Performing Organization Address City/[facility] Co de Phone Number [facility] [address] [address] [facility] [place] [address] * Phosphorus (05/05/2025 8:28 AM CDT) Pathologist [facility] Phosphorus, pl 3.3 2.3 - 4.5 mg/dL Comment:Testing performed by : [facility], [address] [place] [address] Blood 05/05/2025 8:28 AM CDT 05/05/2025 8:49 AM CDT Junaid Cifuentes MD PhD LAB BLOOD ORDERABLES Final Result Performing Organization Address City/[facility]/ZIP Co de Phone Number [facility] [address] [address] [facility] [place] [address] * Lactate dehydrogenase (LD) (05/05/2025 8:28 AM CDT) [facility] Lactate dehydrogenase (LDH) 154 100 - 250 Units/L Comment:Testing performed by : [facility], [address] [place] [address] [place] [address] Blood 05/05/2025 8:2 8 AM CDT 05/05/2025 8:49 AM CDT Junaid Cifuentes MD PhD LAB BLOOD ORDERABLES Final Result Performing Organization Address [facility] Co de Phone Number [facility] [address] [address] [facility] [place] [address] * (ABNORMAL) Creatine kinase (CK), total (05/05/2025 8:28 AM CDT) [facility] CK 28(L) 40 - 300 Units/L Comment:Testing performed by : [facility], [address] [facility], [place] [address] Blood 05/05/2025 8:28 AM CDT 05/05/2025 8:49 AM CDT Junaid Cifuentes MD PhD LAB BLOOD ORDERABLES Final Result Performing Organization Address City/[facility] Co de Phone Number [facility] [address] [address] [facility] [place] [address] * (ABNORMAL) Comprehensive metabolic panel (05/05/2025 8:28 AM CDT) Sodium 141 135 - 145 mmol/L Comment:Testing performed by : [facility], [address], [place] [address] Potassium, pl 4.0 3.3 - 4.9 mmol/L CERNER [facility] Comment:Testing performed by : [facility], [address], [place] [address] Chloride 102 97 - 110 mmol/L CERNER B[facility] Comment:Testing performed by : [facility], [address], [place] [address] CO2 28 22 - 32 mmol/L CERNER [facility] Comment:Testing performed by : [facility], [address], [place] [address] Anion gap 11 2 - 15 mmol/L CERNER BJ[facility] Comment:Testing performed by : [facility], [address], [place] [address] BUN 18 6 - 25 mg/dL CERNER B[facility] Comment:Testing performed by : [facility], [address], [place] [address] Creatinine 0.70(L) 0.80 - 1.30 mg/dL CERNER [facility] Comment:Testing performed by : [facility], [address], [place] [address] Glucose 142 70 - 199 mg/dL CERNER [...] was last revised 2022. Testing performed by: [facility], [address], [place] [address] Calcium 9.5 8.5 - 10.3 mg/dL CERNER B[facility] Comment:Testing performed by : [facility], [address], [place] [address] Bilirubin, total 0.3 0.1 - 1.2 mg/dL CERNER B[facility] Comment:Testing performed by : [facility], [address], [place] [address] Protein, pl 6.8 6.5 - 8.5 g/dL CERNER BJWCH Comment:Testing performed by : [facility], [address], [place] [address] Albumin 4.3 3.5 - 5.0 g/dL CERNER [facility] Comment:Testing performed by : [facility], [address], [place] [address] Alk phos 74 40 - 130 Units/L CERNER BJ[facility] Comment:Testing performed by : [facility], [address], [place] [address] ALT 16 7 - 55 Units/L CERNER [facility] Comment:Testing performed by : [facility], [address], [place] [address] AST 22 10 - 50 Units/L CERNER [facility] Comment:Testing performed by : [facility], [address], [place] [address] Blood 05/05/2025 8:28 AM CDT 05/05/2025 8:49 AM CDT us Junaid Cifuentes MD PhD LAB BLOOD ORDERABLES Final Result [facility] [address] Department [place] [address] * IR Port Placement Chest > 5 Years (04/28/2025 10:13 AM CDT) Anatomical Region Laterality Modality Chest N/A X-Ray Angiograph y 04/28/2025 10:3 9 AM CDT Impressions 04/28/2025 10:39 AM CDT Successful chest wall port placement. PLAN: The catheter is ready for immediate use. Please note that a power injectable port was placed. When treatment is completed, removal can be scheduled by calling [facility] - [phone] [facility] - [phone] Electronically signed by: Donal Carrillo PA-C Narrative [...] was obtained. Prior to beginning the procedure, [place] Protocol was used to confirm the patient's [...] was obtained. Prior to beginning the procedure, [place] Protocol was used to confirm the patient's [...] completed, removal can be scheduled by calling [facility] - [phone] [facility] - [phone] Electronically signed by: Donal Carrillo PA-C Junaid Cifuentes MD PhD IMG IR PROCEDURES Fin al Result from Last 3 Months Insurance MEDICARE [facility] MEDICARE [employer] [place] [employer] [place] Care Teams Senior Receptionist Relationship Specialty Start Date End Date Arvind Castellanos MD PCP - General 12/24/17 Patrick Perez MD [address] [address] Urology 07/27/21
--- OUTSIDE RECORDS SUMMARY | 2025-07-22 14:05 | XMS_ITS | Encounter Summary ---
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
--- OUTSIDE RECORDS SUMMARY | 2025-07-22 14:05 | XMS_ITS | Encounter Summary ---
Author Organization [facility] Address [address] [place] [address] Phone Care Team Providers Care Shingles Roofer Name Role Phone Arvind Castellanos MD Primary Care Provider [phone] Patrick Perez MD Unavailable [phone] Encounter Details Date Type Department Care Team (Late st Contact Info) Description 02/01/2023 Telephone [facility] Medicine Oncology [address] [facility] [address] [place] [phone] Sandra Davila., B.A. 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
--- OUTSIDE RECORDS SUMMARY | 2025-07-22 14:05 | XMS_ITS ---
Author Organization [facility] Address [address] [place] [address] Phone Care Team Providers Care Chief Ophthalmic Technician Name Role Phone Arvind Castellanos MD Primary Care Provider [phone] Active Problems Problem Noted Date Diagnosed Date [...]
--- OUTSIDE RECORDS SUMMARY | 2025-07-22 14:05 | XMS_ITS ---
Author Organization [facility] Address [address] [place] [address] Care Team Providers Care Larriman Helper Name Role Phone Arvind Castellanos MD Primary Care Provider [phone] Patrick Perez MD Unavailable [phone] Active Problems Problem Noted Date Diagnosed Date [...] pain 04/11/2018 Current Treatment and Therapy Plans Denosumab Every 4 Weeks* Plan Start Date:08/04/2025 Plan Provider:Junaid Cifuentes MD PhD Linked Problems Osteoporosis without current pathological fracture, unspecified osteoporosis type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)Prostate cancer (HCC) Treatment Medications Current Day (Day 1 , Cycle 1 - Planned for 08/04/2025) Next Day (Day 1, Cycle 2 - Planned for 09/01/2025) No medications scheduled. No medications schedul ed. No medications scheduled. 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) Treatment Medications Current Day (Day 1 , Cycle 5 - Planned for 08/04/2025) Next Day (Day 1, Cycle 6 - Planned for 08/25/2025) dexAMETHasone (DECADRON)DOCEtaxel (TAXOTERE)DOCEtaxel (TAXOTERE) IVPB in 250 mL (vial 20mg/mL) DOCEtaxeL (TAXOTERE) 102 mg in sodium chloride 0.9% (PVC-FREE) 250 mL IVPB DOCEtaxeL (TAXOTERE) 102 mg in sodium chloride 0.9% (PVC-FREE) 250 [...] Treatment Medications Discontinue Reason Plan Provider Cycles [id number] - [facility] - - [id number] PART 1B DOSE EXPANSION ARM Cohort 11&13(Q3W x 4 induction cycles, Q6W maintenance) - ARX 517 5 04/14/2025 INV-[facility] (/A [id number]) [id number] IVPB in 250 mLINV-[facility] brimonidine 0.2 % (/A [id number])[facility]V -[facility] Systane Complete PF (/A [id number])[facility]V -[facility] Systane Nighttime Lubricant (/A [id number]) Progressive Disease Kemal Guillaume MD 7 of 8 cycles started Sipuleucel-T 14 Day Cycles - Prostate 01/24/2024 05/05/2024 tnxwvzekjb-Y-v actated ringers (PROVENGE) >50 million cell/250 mL Therapy Complete Kemal Guillaume MD 3 of 3 cycles started Apalutamide 240mg daily 28 day cycles 09/10/2022 No medications scheduled. Progression Kemal Guillaume MD 3 of 6 cycles started Lifetime Dose Tracking * Chemical Lifetime Dose Automatic Entry Manual Entr y Fluoro Time 0.3 minutes 0.3 minutes 0 minutes Air kerma at the reference point (Ka,r) 1 mGy 1 mGy 0 mGy DLP 2,455 mGycm 2,455 mGycm 0 mGycm
--- NOTE | 2025-07-22 14:13 | ED_ITS ---
HPI - Extremity Injury (Upper) General Chief Complaint: Extremity Injury, Upper Stated Complaint: fall; bilateral wrist pain Time Seen by Provider: 07/22/25 13:29 Source: patient and family Mode of arrival: ambulatory Limitations: no limitations History of Present Illness HPI narrative: This is a 70-year-old male with history of prostate cancer undergoing chemotherapy had a fall fell backwards on his bilateral wrist causing pain and swelling has good range of motion with no numbness or tingling has brisk radial pulse bilaterally pain level about a 5/10 no other injuries noted no neurological deficits. complaint: injury to: left and right Onset (ago): hour(s) Other Extremity Injury: Bilateral: wrist (Wrist pain and swelling bilaterally) Handedness: right Place: outdoors Severity: moderate Severity scale (1-10): 5 Related Data Home Medications ?Medication ?Instructions ?Recorded ?Confirmed ?Last Taken ?Type ergocalciferol (vitamin D2) 1,250 1,250 mcg PO DAILY 0 12/24/21 11/01/22 Unknown History mcg (50,000 unit) capsule hydrocodone 7.5 mg-acetaminophen 1 tablet PO Q4-6H PRN Pain 12/24/21 11/01/22 Unknown History 325 mg tablet leuprolide 3.75 mg intramuscular See Rx Instructions . Route .COMPLEX 12/24/21 11/01/22 Unknown History pantoprazole 40 mg tablet,delayed 40 mg PO BID 3 11/01/22 Unknown History release prochlorperazine maleate 10 mg 10 mg PO Q6H PRN Nausea 10/18/22 11/01/22 11/01/22 History tablet olanzapine 5 mg tablet 5 mg PO QPM 06/03/25 Unknow n History prednisone 10 mg tablet 10 mg PO DAILY 06/03/25 Unk nown History Allergies Allergy/AdvReac Type Severity Reaction Status Date / Time meperidine AdvReac Nausea and Verified 06/03/25 19:08 Vomiting Review of Systems Review of Systems: All systems reviewed & are unremarkable except as noted in HPI and below PMFSH Past Medical History Medical History Colles' fracture of left radius, initial encounter for closed fracture Family History Family History Other Family history of cardiovascular disease Family history of malignant neoplasm Hypertension Social History Social History Smoking status: Never smoker Alcohol intake: current Substance use: current Substance use type: marijuana Other substance usage details: Daily Living arrangements: with family Spiritual care concerns: No Exam Const: General: healthy appearing and no acute distress Nutritional Appearance: well nourished and thin Orientation/consciousness: patient oriented x3 Limitations: no limitations Neck: Neck: normal visual inspection Chest: Chest palpation & inspection: normal inspection of the chest Resp: Effort & Inspection: normal respiratory effort Auscultation: clear to auscultation bilaterally Cardio: Rate: regular rate Rhythm: regular rhythm GI: GI Palp: Yes Soft to palpation Auscultation: normal bowel sounds Skin: Wounds: wounds noted Neuro: General: patient oriented x3, moves all extremities, no meningeal signs and no focal motor deficits Extrem: Other: Bilateral wrist pain and swelling Course Course Emergency Course: Medical decision making narrative: The patient evaluated by myself in the emergency department. History obtained from the patient who is an independent historian and physical exam performed had witnessed by the nurse. Patient had x-rays bilateral wrist and forearm which showed fractures of bilateral radial metaphysis. The patient declined any pain medicine at this time pain level of 5/10 states that he is comfortable. Repeat assessment: Patient doing well on repeat exam with no acute distress Symptoms her stable since arrival to the emergency department. Repeat vitals are stable. Patient agrees with discussion and after shared medical decision making and agrees with discharge. All questions answered to the patient and family satisfaction Advised follow-up with Primary/ortho in the next 3 to 5 days further evaluation and treatment. Vital Signs Vital signs: Vital Signs Temperature 36.7 C 07/22/25 13:18 Pulse Rate 106 H 07/22/25 13:18 Respiratory Rate 20 07/22/25 13:18 Blood Pressure 152/78 H 07/22/25 13:18 Pulse Oximetry 98 07/22/25 13:18 Oxygen Delivery Room Air 07/22/25 13:18 Temperature 36.7 C 07/22/25 13:18 Pulse Rate 106 H 07/22/25 13:18 Respiratory Rate 20 07/22/25 13:18 Blood Pressure 152/78 H 07/22/25 13:18 Pulse Oximetry 98 07/22/25 13:18 Oxygen Delivery Room Air 07/22/25 13:18 Critical Care Time Critical Care Time Critical Care Time: No Discharge Plan Discharge Clinical Impression: Fracture of wrist Qualifiers: Encounter type: initial encounter Fracture type: closed Laterality: unspecified laterality Qualified Code(s): S62.109A - Fracture of unspecified carpal bone, unspecified wrist, initial encounter for closed fracture Patient Disposition: Home Condition: Stable Instructions: Antibiotic Form, Wrist Fracture in Adults (ED) Additional Instructions: Advised patient to take Tylenol or Motrin as needed and follow-up with [facility]/orthopedics within the next 2 to 5 days further evaluation treatment. Patient Language: Maltese Prescriptions: No Action leuprolide 3.75 mg Injectable See Rx Instructions .ROUTE .COMPLEX Rx Instructions: . hydrocodone-acetaminophen 7.5-325 mg tablet 1 tablet PO Q4-6H PRN (Reason: Pain) ergocalciferol (vitamin D2) 1,250 mcg (50,000 unit) capsule 1,250 mcg PO DAILY olanzapine 5 mg tablet 5 mg PO QPM prednisone 10 mg tablet 10 mg PO DAILY prochlorperazine maleate 10 mg tablet 10 mg PO Q6H PRN (Reason: Nausea) pantoprazole 40 mg tablet,delayed release (DR/EC) 40 mg PO BID Follow-up/Referrals: Arvind Castellanos MD [Primary Care Provider, Internal Medicine] Time of Disposition: 14:18
[2025-07-22 14:29] VITALS: BP 160/82; PULSE 105; RESP 16; O2SAT 98
--- OUTSIDE RECORDS SUMMARY | 2025-07-22 14:37 | XMS_ITS | Clinical Summary ---
Author Organization [facility] Address [address] [place] [address] Care Team Providers Care Manager Mobile Name Role Phone Arvind Castellanos MD Primary Care Provider [phone] Patrick Perez MD Unavailable [phone] Allergies Active Allergy Reactions Criticality Noted Date [...] Type Department Care Team Description 07/15/2025 Telephone [facility] Medicine Oncology [address] [place] [address] [address] [place] [address] Sharmin De La Vega, RN 07/14/2025 9:30 AM CDT Infusion [facility] at [address] [place] [address] 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); Prostate cancer (HCC); 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) 07/14/2025 9:00 AM CDT Office Visit [facility] Medicine Oncology [address] [place] [address] [address] [place] [address] Gladis Savage NP 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); Prostate cancer (HCC); 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); Osteoporosis without current pathological fracture, unspecified osteoporosis type 07/14/2025 8:00 AM CDT Clinical Support [facility] at [address] [place], [place] [address] Prostate cancer (HCC); 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) 06/23/2025 9:30 AM CDT Infusion [facility] at [address] [place] [phone] 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); Prostate cancer (HCC); 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) 06/23/2025 9:00 AM CDT Office Visit [facility] [address] [place], [place] [address] [phone] Junaid Cifuentes MD PhD 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); Prostate cancer (HCC) 06/23/2025 8:00 AM CDT Clinical Support [facility] at [address] [place] [phone] Prostate cancer (HCC); 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) 06/16/2025 9:00 AM CDT Office Visit [facility] [address] [place] [address] [place] [phone] Gladis Savage NP 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); Prostate cancer (HCC) 06/16/2025 8:00 AM CDT Clinical Support [address] [place] [address] Prostate cancer (HCC); 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) 06/14/2025 Orders Only [facility] Scanning, Provider 06/11/2025 Telephone [facility] [address] [place], [place] [address] [phone] Tierney Magana RN 06/09/2025 Telephone [facility] [address] [place] [address] [address] [place], [place] [phone] Sharmin De La Vega, POLINA 06/07/2025 [facility] [address] [place], [place] [phone] Sharmin De La Vega, POLINA 06/04/2025 Telephone [facility] Medicine Oncology [address] [place] [address] [address] [place], [place] [phone] Yudith Orozco CMA 06/04/2025 [facility] Floor [address] [place] [phone] Sharmin De La Vega, POLINA 06/03/[address] [address] He Almaraz MD 06/03/2025 Telephone [facility] Medicine Oncology [facility] Floor [address] [place] [address] Radha Healy 05/27/2025 Telephone [facility] Medicine Oncology [address] [place] [address] [address] [place], [place] [phone] Alfonso Macias, POLINA 05/26/2025 9:30 AM CDT Infusion [facility] at [address] [place] [phone] 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); Prostate cancer (HCC); 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) 05/26/2025 9:00 AM CDT Office Visit [facility] Medicine Oncology [address] [place] [address] [address] [place], [place] [phone] Junaid Cifuentes MD PhD 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); Prostate cancer (HCC) 05/26/2025 8:00 AM CDT Clinical Support [facility] at [address] [place] [phone] Prostate cancer (HCC); 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) 05/26/2025 Orders Only [facility] - Infusion [address] [facility] Floor [address] [place] [address] Rigoberto Walls [facility] 05/06/2025 Telephone [facility] Medicine Oncology [address] [place] [address] [address] [place] [address] Tierney Magana RN 05/05/2025 9:30 AM CDT Infusion [facility] at [address] [place] [address] 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); Prostate cancer (HCC) 05/05/2025 9:00 AM CDT Office Visit [facility] [address] [place] [address] [address] [place] [address] Gladis Savage, ALTON Prostate cancer (HCC); 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) 05/05/2025 8:00 AM CDT Clinical Support [facility] at [address] [place] [address] Prostate cancer (HCC); 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); Research study patient 05/05/2025 Documentation [facility] at [facility] 10 [facility] [place] [address] Maye Cottrell, BUFFY 05/03/2025 Orders Only [facility] [address] [place] [address] [address] [place] [address] Junaid Cifuentes MD PhD Research study patient 04/28/2025 7:42 AM CDT - 04/28/2025 11:59 PM CDT Hospital Encounter [facility] [address] [place] [address] Vida Weller, Paulette Perdomo RN Prostate cancer (HCC) Discharge Disposition: Discharge to home or self care 04/27/2025 Telephone [facility] [address] [place] [address] Padmini Webb RN from Last 3 Months [...] on file 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 Testing performed by: [facility], [address] [place] [address] Blood 07/14/2025 7:48 AM CDT 07/14/2025 8:19 AM CDT Junaid Cifuentes MD PhD LAB BLOOD ORDERABLES Final Result [facility] [address] [place] [address] * (ABNORMAL) Differential, auto (07/14/2025 7:48 AM CDT) Neutrophil abs 12.29(H) 1.50 - 6.50 K/cumm Comment:Testing performed by : [facility] 2, [address] [place] [address] Imm gran abs 0.07 0.00 - 0.10 K/cumm CERNER BJWCH Comment:Testing performed by : [facility], [address] [place] [address] Lymphocyte abs 0.64(L) 0.80 - 3.30 K/cumm GORAN BJWCH Comment:Testing performed by : [facility], [address] [place] [address] Monocyte abs 0.76 0.20 - 0.80 K/cumm CERNER BJWCH Comment:Testing performed by : [facility], [address] [place] [address] Eosinophil abs 0.01 0.00 - 0.50 K/cumm CERNICHOLE BJWCH Comment:Testing performed by : [facility], [address] [place] [address] Basophil abs 0.03 0.00 - 0.10 K/cumm CERNICHOLE BJWCH Comment:Testing performed by : [facility], [address] [place] [address] Neutrophil pct 89.1 % CERNER BJWCH Comment: Interpretive Data Percent cell count reference ranges are not reported, since discordance with absolute values may lead to misinterpretation of CBC data. Current Interpretive Data was last revised on 2017. Testing performed by: [facility], [facility], [address] [place] [address] Imm gran pct 0.5 % CERNER BJWCH Comment: Interpretive Data Percent cell count reference ranges are not reported, since discordance with absolute values may lead to misinterpretation of CBC data. Current Interpretive Data was last revised on 2017. Testing performed by: [facility], [facility], [address] [place] [address] Lymphocyte pct 4.6 % CERNER BJWCH Comment: Interpretive Data Percent cell count reference ranges are not reported, since discordance with absolute values may lead to misinterpretation of CBC data. Current Interpretive Data was last revised on 2017. Testing performed by: [facility], [facility], [address] [place] [address] Monocyte pct 5.5 % C[facility]ER BJW[facility] Comment: Interpretive Data Percent cell count reference ranges are not reported, since discordance with absolute values may lead to misinterpretation of CBC data. Current Interpretive Data was last revised on 2017. Testing performed by: [facility], [facility], [address] [place] [address] Eosinophil pct 0.1 % C[facility]ER BJWCH Comment: Interpretive Data Percent cell count reference ranges are not reported, since discordance with absolute values may lead to misinterpretation of CBC data. Current Interpretive Data was last revised on 2017. Testing performed by: [facility], [facility], [address] [place] [address] Basophil pct 0.2 % C[facility]ER BJWCH Comment: Interpretive Data Percent cell count reference ranges are not reported, since discordance with absolute values may lead to misinterpretation of CBC data. Current Interpretive Data was last revised on 2017. Testing performed by: [facility], [facility], [address] [place] [address] Blood 07/14/2025 7:48 AM CDT 07/14/2025 7:50 AM CDT Junaid Cifuentes MD PhD LAB BLOOD ORDERABLES Final Result [facility] [address] [facility] Department [place] [address] * (ABNORMAL) CBC with auto differential (07/14/2025 7:48 AM CDT) WBC 13.80(H) 3.80 - 9.90 K/cumm Comment:Testing performed by : [facility], [address] [place] [address] Hgb 11.1(L) 13.0 - 17.5 g/dL OGRAN YOUSSEFW Comment:Testing performed by : [place] [address], [address] [place] [address] Hct 34.8(L) 38.9 - 50.3 % GORAN RASEHED Comment:Testing performed by : [facility], [address] [place] [address] Plt 255 150 - 400 K/cumm [facility] Comment:Testing performed by : [place] [address], [address] [place] [address] MPV 10.0 9.1 - 12.3 fL GORAN YOUSSEFW Comment:Testing performed by : [facility], [address] [place] [address] RBC 3.81(L) 4.30 - 5.80 M/cumm GORAN RASHEEDCH Comment:Testing performed by : [facility], [address] [place] [address] MCV 91.3 81.3 - 96.4 fL CERNICHOLE BJWCH Comment:Testing performed by : [facility], [facility], [address] [place] [address] MCH 29.1 27.1 - 33.3 pg GORAN HELM Comment:Testing performed by : [facility], [facility], [address] [place] [address] MCHC 31.9(L) 32.3 - 35.7 g/dL GORAN HELM Comment:Testing performed by : [facility], [facility], [address] [place] [address] RDW CV 14.6 11.1 - 14.9 % GORAN HELM Comment:Testing performed by : [facility] 2, [address] [place] [address] RDW SD 48.0 35.7 - 48.1 fL GORAN HELM Comment:Testing performed by : [facility], [facility], [address] [place] [address] ANC Prelim 12.29(H) 1.50 - 6.50 K/cumm GORAN HELM Comment: Interpretive Data The rapid ANC is a preliminary automated count and may vary from the final ANC (Neut Abs) reported in the WBC differential that follows. Current interpretive data was last revised 2024. Testing performed by: [facility], [facility], [address] [place] [address] Blood 07/14/2025 7:48 AM CDT 07/14/2025 7:50 AM CDT us Junaid Cifuentes MD PhD LAB BLOOD ORDERABLES Final Result [facility] [address] [facility] [address] [place], [place] [id number] * (ABNORMAL) PSA diagnostic (07/14/2025 7:48 AM [...] data last revised 22. Testing performed by: [facility], [address] [place] [address] Blood 07/14/2025 7:48 AM CDT 07/14/2025 8:19 AM CDT Junaid Cifuentes MD PhD LAB BLOOD ORDERABLES Final Result [facility] [address] Department [place] [address] * (ABNORMAL) Comprehensive metabolic panel (07/14/2025 7:48 AM CDT) Sodium 143 135 - 145 mmol/L Comment:Testing performed by : [facility], [address], [place] [address] Potassium, pl 4.3 3.3 - 4.9 mmol/L CERNICHOLE BJWCH Comment:Testing performed by : [facility], [address], [place] [address] Chloride 106 97 - 110 mmol/L CERNICHOLE BJWCH Comment:Testing performed by : [facility], [address] [place] [address] CO2 27 22 - 32 mmol/L CERNICHOLE BJWCH Comment:Testing performed by : [facility], [address] [place] [address] Anion gap 10 2 - 15 mmol/L [facility]ORAN BJWCH Comment:Testing performed by : [facility], [address] [place] [address] BUN 27(H) 6 - 25 mg/dL CERNICHOLE BJWCH Comment:Testing performed by : [facility], [address], [place] [address] Creatinine 0.71(L) 0.80 - 1.30 mg/dL CERNER BJWCH Comment:Testing performed by : [facility], [address], [place] [address] Glucose 125 70 - 199 mg/dL CERNER [...] was last revised 2022. Testing performed by: [facility], [address], [place] [address] Calcium 9.5 8.5 - 10.3 mg/dL CERNER BJWCH Comment:Testing performed by : [facility], [address], [place] [address] Bilirubin, total 0.2 0.1 - 1.2 mg/dL CERNER BJWCH Comment:Testing performed by : [facility], [address], [place] [address] Protein, pl 6.1(L) 6.5 - 8.5 g/dL C[facility]ER BJWCH Comment:Testing performed by : [facility], [address], [place] [address] Albumin 3.8 3.5 - 5.0 g/dL CERNER BJWCH Comment:Testing performed by : [facility], [address], [place] [address] Alk phos 78 40 - 130 Units/L CERNER BJWCH Comment:Testing performed by : [facility], [address], [place] [address] ALT 14 7 - 55 Units/L CERNER BJWCH Comment:Testing performed by : [facility], [address] [place] [address] AST 16 10 - 50 Units/L GORAN HELM Comment:Testing performed by : [facility], [address] [place] [address] Blood 07/14/2025 7:48 AM CDT 07/14/2025 8:19 AM CDT Junaid Cifuentes MD PhD LAB BLOOD ORDERABLES Final Result Performing Organization Address [facility] Co de Phone Number [facility] [address]. [place] [address] * eGFR (06/23/2025 8:10 AM CDT) eGFR [...] was last reviewed 2021. Testing performed by: [facility], [address] [place] [address] Blood 06/23/2025 8:10 AM CDT 06/23/2025 8:44 AM CDT us Junaid Cifuentes MD PhD LAB BLOOD ORDERABLES Final Result Performing Organization Address City/[facility]/ZIP Co de Phone Number [facility] [address] [place] [address] * (ABNORMAL) Differential, auto (06/23/2025 8:10 AM CDT) Neutrophil abs 7.77(H) 1.50 - 6.50 K/cumm Comment:Testing performed by : [place] [address], [address] [place] [address] Imm gran abs 0.05 0.00 - 0.10 K/cumm CERNER BJWCH Comment:Testing performed by : [place] [address], [address] [place] [address] Lymphocyte abs 0.51(L) 0.80 - 3.30 K/cumm CERNER BJWCH Comment:Testing performed by : [place] [address], [address] [place] [address] Monocyte abs 0.45 0.20 - 0.80 K/cumm CERNER BJWCH Comment:Testing performed by : [place] [address], [address] [place] [address] Eosinophil abs 0.01 0.00 - 0.50 K/cumm CERNER BJWCH Comment:Testing performed by : [facility] 2, [address] [place] [address] Basophil abs 0.02 0.00 - 0.10 K/cumm CERNER BJWCH Comment:Testing performed by : [place] [address], [address] [place] [address] Neutrophil pct 88.2 % CERNER BJWCH Comment: Interpretive Data Percent cell count reference ranges are not reported, since discordance with absolute values may lead to misinterpretation of CBC data. Current Interpretive Data was last revised on 2017. Testing performed by: [facility] 2, [address] [place] [address] Imm gran pct 0.6 % CERNER BJWCH Comment: Interpretive Data Percent cell count reference ranges are not reported, since discordance with absolute values may lead to misinterpretation of CBC data. Current Interpretive Data was last revised on 2017. Testing performed by: [facility], [facility], [address] [place] [address] Lymphocyte pct 5.8 % CERNICHOLE HELM Comment: Interpretive Data Percent cell count reference ranges are not reported, since discordance with absolute values may lead to misinterpretation of CBC data. Current Interpretive Data was last revised on 2017. Testing performed by: [facility], [facility], [address] [place] [address] Monocyte pct 5.1 % CERNICHOLE HELM Comment: Interpretive Data Percent cell count reference ranges are not reported, since discordance with absolute values may lead to misinterpretation of CBC data. Current Interpretive Data was last revised on 2017. Testing performed by: [facility], [facility], [address] [place] [address] Eosinophil pct 0.1 % CERNICHOLE YOUSSEFESTEBAN Comment: Interpretive Data Percent cell count reference ranges are not reported, since discordance with absolute values may lead to misinterpretation of CBC data. Current Interpretive Data was last revised on 2017. Testing performed by: [facility], [facility], [address] [place] [address] Basophil pct 0.2 % GORAN HELM Comment: Interpretive Data Percent cell count reference ranges are not reported, since discordance with absolute values may lead to misinterpretation of CBC data. Current Interpretive Data was last revised on 2017. Testing performed by: [facility], [facility], [address] [place] [address] Blood 06/23/2025 8:10 AM CDT 06/23/2025 8:15 AM CDT us Junaid Cifuentes MD PhD LAB BLOOD ORDERABLES Final Result [facility] [address] [facility] [place] [address] * Iron profile w/ IBC (06/23/2025 8:10 AM CDT) [facility] Iron 68 50 - 150 mcg/dL Comment:Testing performed by : [facility], [address] [place] [address]., [address] TIBC 251 250 - 400 mcg/dL GORAN HELM Comment:Testing performed by : [facility], [address] [place] [address]., [address] Transferrin saturation 27 20 - 50 % GORAN HELM Comment:Testing performed by : [facility], [address] [place] [address]., [address] Blood 06/23/2025 8:10 AM CDT 06/23/2025 10:04 AM CDT Gladis Savage REGIONAL BUSINESS DEVELOPMENT MANAGER LAB BLOOD ORDERABLES Final Result Performing Organization Address City/State/[facility] Co de Phone Number GORAN HELM [address] [facility] Department [place] [address] * (ABNORMAL) CBC with auto differential (06/23/2025 8:10 AM CDT) [facility] WBC 8.81 3.80 - 9.90 K/cumm Comment:Testing performed by : [facility] 2, [address] [place] [address] Hgb 11.7(L) 13.0 - 17.5 g/dL GORAN HELM Comment:Testing performed by : [facility] 2, [address] [place] [address] Hct 36.7(L) 38.9 - 50.3 % GORAN HELM Comment:Testing performed by : [facility], [facility], [address] [place] [address] Plt 298 150 - 400 K/cumm GORAN HELM Comment:Testing performed by : [facility] 2, [address] [place] [address] MPV 9.8 9.1 - 12.3 fL CERNER BJWCH Comment:Testing performed by : [place] [address], [address] [place] [address] RBC 4.10(L) 4.30 - 5.80 M/cumm CERNER BJWCH Comment:Testing performed by : [place] [address] [place] [address] MCV 89.5 81.3 - 96.4 fL CERNER BJWCH Comment:Testing performed by : [place] [address] [place] [address] MCH 28.5 27.1 - 33.3 pg CERNER BJWCH Comment:Testing performed by : [place] [address] [place] [address] MCHC 31.9(L) 32.3 - 35.7 g/dL CERNER BJWCH Comment:Testing performed by : [place] [address] [place] [address] RDW CV 13.8 11.1 - 14.9 % CERNER BJWCH Comment:Testing performed by : [address] [place] [address] RDW SD 45.0 35.7 - 48.1 fL CERNER BJWCH Comment:Testing performed by : [place] [address] [place] [address] ANC Prelim 7.77(H) 1.50 - 6.50 K/cumm CERNER BJWCH Comment: Interpretive Data The rapid ANC is a preliminary automated count and may vary from the final ANC (Neut Abs) reported in the WBC differential that follows. Current interpretive data was last revised 2024. Testing performed by: [place] [address] [place] [address] Blood 06/23/2025 8:10 AM CDT 06/23/2025 8:15 AM CDT Junaid Cifuentes MD PhD LAB BLOOD ORDERABLES Final Result Performing Organization Address City/[facility]/ZIP Co de Phone Number [facility] [address] [facility]. [facility] [place] [address] * (ABNORMAL) PSA diagnostic (06/23/2025 8:10 AM [...] data last revised 22. Testing performed by: [facility], [address] [facility], [place] [address] Blood 06/23/2025 8:10 AM CDT 06/23/2025 8:44 AM CDT Gladis Savage NP LAB BLOOD ORDERABLES Final Result Performing Organization Address [facility] de Phone Number GORAN YOUSSEFCH [address] [facility]. [facility] [place] [address] * Ferritin (06/23/2025 8:10 AM CDT) Ferritin 239 30 - 400 ng/mL Comment:Testing performed by : [facility], [facility], [place]., [address] Blood 06/23/2025 8:10 AM CDT 06/23/2025 10:04 AM CDT Gladis Savage REGIONAL BUSINESS DEVELOPMENT MANAGER LAB BLOOD ORDERABLES Final Result Performing Organization Address City/[facility] Co de Phone Number [facility] [address] [place] [address] * (ABNORMAL) Comprehensive metabolic panel (06/23/2025 8:10 AM CDT) Sodium 142 135 - 145 mmol/L Comment:Testing performed by : [facility], [address], [place] [address] Potassium, pl 4.2 3.3 - 4.9 mmol/L CERNER BJWCH Comment:Testing performed by : [facility], [address], [place] [address] Chloride 104 97 - 110 mmol/L CERNER BJWCH Comment:Testing performed by : [facility], [address], [place] [address] CO2 30 22 - 32 mmol/L CERNER BJWCH Comment:Testing performed by : [facility], [address], [place] [address] Anion gap 8 2 - 15 mmol/L CERNER BJWCH Comment:Testing performed by : [facility], [address], [place] [address] BUN 23 6 - 25 mg/dL CERNER BJWCH Comment:Testing performed by : [facility], [address], [place] [address] Creatinine 0.71(L) 0.80 - 1.30 mg/dL CERNER BJWCH Comment:Testing performed by : [facility], [address], [place] [address] Glucose 124 70 - 199 mg/dL CERNER [...] was last revised 2022. Testing performed by: [facility], [address], [place] [address] Calcium 9.8 8.5 - 10.3 mg/dL CERNER BJWCH Comment:Testing performed by : [facility], [address], [place] [address] Bilirubin, total 0.3 0.1 - 1.2 mg/dL CERNER BJWCH Comment:Testing performed by : [facility], [address], [place] [address] Protein, pl 6.5 6.5 - 8.5 g/dL CERNER BJWCH Comment:Testing performed by : [facility], [address], [place] [address] Albumin 4.1 3.5 - 5.0 g/dL CERNER BJWCH Comment:Testing performed by : [facility], [address], [place] [address] Alk phos 68 40 - 130 Units/L CERNER BJWCH Comment:Testing performed by : [facility], [address], [place] [address] ALT 12 7 - 55 Units/L CERNER BJWCH Comment:Testing performed by : [facility], [address], [place] [address] AST 18 10 - 50 Units/L CERNER BJWCH Comment:Testing performed by : [facility], [address], [place] [address] Blood 06/23/2025 8:10 AM CDT 06/23/2025 8:44 AM CDT us Junaid Cifuentes MD PhD LAB BLOOD ORDERABLES Final Result GORAN BJWCH [address] Department [place] [address] * eGFR (06/16/2025 8:12 AM CDT) eGFR [...] was last reviewed 2021. Testing performed by: [facility], [address] [place] [address] Blood 06/16/2025 8:12 AM CDT 06/16/2025 8:46 AM CDT us Junaid Cifuentes MD PhD LAB BLOOD ORDERABLES Final Result [facility] [address] [place] [address] * (ABNORMAL) Differential, auto (06/16/2025 8:12 AM CDT) Neutrophil abs 10.94(H) 1.50 - 6.50 K/cumm Comment:Testing performed by : [facility], [facility], [address] [place] [address] Imm gran abs 0.10 0.00 - 0.10 K/cumm GORAN HELM Comment:Testing performed by : [facility], [facility], [address] [place] [address] Lymphocyte abs 0.67(L) 0.80 - 3.30 K/cumm GORAN HELM Comment:Testing performed by : [facility], [facility], [address], [place] [address] Monocyte abs 0.87(H) 0.20 - 0.80 K/cumm CERNER BJWCH Comment:Testing performed by : [facility], [facility], [address] [place] [address] Eosinophil abs 0.00 0.00 - 0.50 K/cumm CERNER BJWCH Comment:Testing performed by : [facility], [facility], [address], [place] [address] Basophil abs 0.02 0.00 - 0.10 K/cumm CERNER BJWCH Comment:Testing performed by : [facility], [facility], [address] [place] [address] Neutrophil pct 86.8 % CERNER BJWCH Comment: Interpretive Data Percent cell count reference ranges are not reported, since discordance with absolute values may lead to misinterpretation of CBC data. Current Interpretive Data was last revised on 2017. Testing performed by: [facility], [facility], [address] [place] [address] Imm gran pct 0.8 % CERNER BJWCH Comment: Interpretive Data Percent cell count reference ranges are not reported, since discordance with absolute values may lead to misinterpretation of CBC data. Current Interpretive Data was last revised on 2017. Testing performed by: [facility], [facility], [address], [place] [address] Lymphocyte pct 5.3 % CERNER BJWCH Comment: Interpretive Data Percent cell count reference ranges are not reported, since discordance with absolute values may lead to misinterpretation of CBC data. Current Interpretive Data was last revised on 2017. Testing performed by: [facility], [facility], [address] [place] [address] Monocyte pct 6.9 % CERNER BJWCH Comment: Interpretive Data Percent cell count reference ranges are not reported, since discordance with absolute values may lead to misinterpretation of CBC data. Current Interpretive Data was last revised on 2017. Testing performed by: [facility], [facility], [address] [place] [address] Eosinophil pct 0.0 % GORAN HELM Comment: Interpretive Data Percent cell count reference ranges are not reported, since discordance with absolute values may lead to misinterpretation of CBC data. Current Interpretive Data was last revised on 2017. Testing performed by: [facility] 2, [address] [place] [address] Basophil pct 0.2 % GORAN HELM Comment: Interpretive Data Percent cell count reference ranges are not reported, since discordance with absolute values may lead to misinterpretation of CBC data. Current Interpretive Data was last revised on 2017. Testing performed by: [facility] 2, [address] [place] [address] Blood 06/16/2025 8:1 2 AM CDT 06/16/2025 8:20 AM CDT Junaid Cifuentes MD PhD LAB BLOOD ORDERABLES Final Result [facility]AN [facility] [address] [facility] Department [place] [address] * (ABNORMAL) CBC with auto differential (06/16/2025 8:12 AM CDT) WBC 12.60(H) 3.80 - 9.90 K/cumm Comment:Testing performed by : [facility], [facility], [address] [place] [address] Hgb 10.8(L) 13.0 - 17.5 g/dL GORAN HELM Comment:Testing performed by : [facility] 2, [address] [place] [address] Hct 33.7(L) 38.9 - 50.3 % GORAN HELM Comment:Testing performed by : [facility] 2, [address] [place] [address] Plt 299 150 - 400 K/cumm CERNER BJWCH Comment:Testing performed by : [place] [address], [address] [place] [address] MPV 10.3 9.1 - 12.3 fL CERNER BJWCH Comment:Testing performed by : [place] [address], [address] [place] [address] RBC 3.73(L) 4.30 - 5.80 M/cumm CERNER BJWCH Comment:Testing performed by : [place] [address], [address], [place] [address] MCV 90.3 81.3 - 96.4 fL CERNER BJWCH Comment:Testing performed by : [place] [address], [address], [place] [address] MCH 29.0 27.1 - 33.3 pg CERNICHOLE BJWCH Comment:Testing performed by : [place] [address], [address], [place] [address] MCHC 32.0(L) 32.3 - 35.7 g/dL CERNER BJWCH Comment:Testing performed by : [place] [address], [address] [place] [address] RDW CV 13.2 11.1 - 14.9 % CERNICHOLE BJWCH Comment:Testing performed by : [address] [place] [address] RDW SD 43.7 35.7 - 48.1 fL CERNER BJWCH Comment:Testing performed by : [place] [address], [address], [place] [address] ANC Prelim 10.94(H) 1.50 - 6.50 K/cumm CERNER BJWCH Comment: Interpretive Data The rapid ANC is a preliminary automated count and may vary from the final ANC (Neut Abs) reported in the WBC differential that follows. Current interpretive data was last revised 2024. Testing performed by: [place] [address], [address] [place] [address] Blood 06/16/2025 8:12 AM CDT 06/16/2025 8:20 AM CDT Junaid Cifuentes MD PhD LAB BLOOD ORDERABLES Final Result Performing Organization Address [facility] Co de Phone Number GORAN YOUSSEFCH [address] [facility]. [place] [address] * (ABNORMAL) PSA diagnostic (06/16/2025 8:12 AM [...] data last revised 22. Testing performed by: [facility], [address] [place] [address] Blood 06/16/2025 8:12 AM CDT 06/16/2025 8:46 AM CDT Junaid Cifuentes MD PhD LAB BLOOD ORDERABLES Final Result Performing Organization Address [facility] Co de Phone Number GORAN YOUSSEFWCH [address] [place] [address] * (ABNORMAL) Comprehensive metabolic panel (06/16/2025 8:12 AM CDT) Sodium 141 135 - 145 mmol/L Comment:Testing performed by : [facility], [address] [place] [address] Potassium, pl 4.2 3.3 - 4.9 mmol/L GORAN HELM Comment:Testing performed by : [facility], [address], [place] [address] Chloride 103 97 - 110 mmol/L CERNER BJWCH Comment:Testing performed by : [facility], [address], [place] [address] CO2 29 22 - 32 mmol/L CERNER BJWCH Comment:Testing performed by : [facility], [address], [place] [address] Anion gap 9 2 - 15 mmol/L CERNER BJWCH Comment:Testing performed by : [facility], [address], [place] [address] BUN 22 6 - 25 mg/dL CERNER BJWCH Comment:Testing performed by : [facility], [address], [place] [address] Creatinine 0.72(L) 0.80 - 1.30 mg/dL CERNER BJWCH Comment:Testing performed by : [facility], [address], [place] [address] Glucose 133 70 - 199 mg/dL CERNER [...] was last revised 2022. Testing performed by: [facility], [address], [place] [address] Calcium 9.2 8.5 - 10.3 mg/dL CERNER BJWCH Comment:Testing performed by : [facility], [address], [place] [address] Bilirubin, total 0.2 0.1 - 1.2 mg/dL CERNER BJWCH Comment:Testing performed by : [facility], [address], [place] [address] Protein, pl 6.0(L) 6.5 - 8.5 g/dL CERNER BJWCH Comment:Testing performed by : [facility], [address], [place] [address] Albumin 3.8 3.5 - 5.0 g/dL CERNER BJWCH Comment:Testing performed by : [facility], [address], [place] [address] Alk phos 67 40 - 130 Units/L CERNER BJWCH Comment:Testing performed by : [facility], [address], [place] [address] ALT 12 7 - 55 Units/L CERNER BJWCH Comment:Testing performed by : [facility], [address], [place] [address] AST 17 10 - 50 Units/L CERNER BJWCH Comment:Testing performed by : [facility], [address], [place] [address] Blood 06/16/2025 8:12 AM CDT 06/16/2025 8:46 AM CDT Junaid Cifuentes MD PhD LAB BLOOD ORDERABLES Final Result GORAN [facility] [address] [place] [address] * SCAN - RADIOLOGY/IMAGING (06/14/2025) Anatomical Region [...] was last reviewed 2021. Testing performed by: [facility], [address] [place] [address] Blood 05/26/2025 7:55 AM CDT 05/26/2025 8:23 AM CDT us Junaid Cifuentes MD PhD LAB BLOOD ORDERABLES Final Result [facility] [address] Department of Laboratories [place] [phone] * (ABNORMAL) Differential, auto (05/26/2025 7:55 AM CDT) Neutrophil abs 7.67(H) 1.50 - 6.50 K/cumm Comment:Testing performed by : [facility], [facility], [address] [place] [address] Imm gran abs 0.04 0.00 - 0.10 K/cumm GORAN HELM Comment:Testing performed by : [facility] 2, [address] [place] [address] Lymphocyte abs 0.99 0.80 - 3.30 K/cumm GORAN HELM Comment:Testing performed by : [facility] 2, [address] [place] [address] Monocyte abs 0.58 0.20 - 0.80 K/cumm GORAN HELM Comment:Testing performed by : [facility] 2, [address] [place] [address] Eosinophil abs 0.00 0.00 - 0.50 K/cumm CERNER BJWCH Comment:Testing performed by : [facility], [facility], [address] [place] [address] Basophil abs 0.02 0.00 - 0.10 K/cumm CERNER BJWCH Comment:Testing performed by : [facility], [facility], [address] [place] [address] Neutrophil pct 82.6 % CERNER BJWCH Comment: Interpretive Data Percent cell count reference ranges are not reported, since discordance with absolute values may lead to misinterpretation of CBC data. Current Interpretive Data was last revised on 2017. Testing performed by: [facility], [facility], [address] [place] [address] Imm gran pct 0.4 % CERNER BJWCH Comment: Interpretive Data Percent cell count reference ranges are not reported, since discordance with absolute values may lead to misinterpretation of CBC data. Current Interpretive Data was last revised on 2017. Testing performed by: [facility], [facility], [address] [place] [address] Lymphocyte pct 10.6 % CERNER BJWCH Comment: Interpretive Data Percent cell count reference ranges are not reported, since discordance with absolute values may lead to misinterpretation of CBC data. Current Interpretive Data was last revised on 2017. Testing performed by: [facility] 2, [address] [place] [address] Monocyte pct 6.2 % CERNER BJWCH Comment: Interpretive Data Percent cell count reference ranges are not reported, since discordance with absolute values may lead to misinterpretation of CBC data. Current Interpretive Data was last revised on 2017. Testing performed by: [facility], [facility], [address] [place] [address] Eosinophil pct 0.0 % CERNER BJWCH Comment: Interpretive Data Percent cell count reference ranges are not reported, since discordance with absolute values may lead to misinterpretation of CBC data. Current Interpretive Data was last revised on 2017. [facility]: [facility], [address] [place] [address] Basophil pct 0.2 % GORAN HELM Comment: Interpretive Data Percent cell count reference ranges are not reported, since discordance with absolute values may lead to misinterpretation of CBC data. Current Interpretive Data was last revised on 2017. Testing performed by: [facility] 2, [address] [place] [address] Blood 05/26/2025 7:55 AM CDT 05/26/2025 7:56 AM CDT us Junaid Cifuentes MD PhD LAB BLOOD ORDERABLES Final Result GORAN HELM [address] [facility]. Department [place] [address] * (ABNORMAL) CBC with auto differential (05/26/2025 7:55 AM CDT) WBC 9.30 3.80 - 9.90 K/cumm Comment:Testing performed by : [facility] 2, [address] [place] [address] Hgb 14.1 13.0 - 17.5 g/dL GORAN HELM Comment:Testing performed by : [address] [place] [address] Hct 43.1 38.9 - 50.3 % GORAN HELM Comment:Testing performed by : [place] [address], [address] [place] [address] Plt 211 150 - 400 K/cumm GORAN HELM Comment:Testing performed by : [place] [address], [address] [place] [address] MPV 10.1 9.1 - 12.3 fL GORAN HELM Comment:Testing performed by : [place] [address], [address] [place] [address] RBC 4.81 4.30 - 5.80 M/cumm [facility] Comment:Testing performed by : [facility], [facility], [address] [place] [address] MCV 89.6 81.3 - 96.4 fL [facility] Comment:Testing performed by : [facility], [facility], [address] [place] [address] MCH 29.3 27.1 - 33.3 pg [facility] Comment:Testing performed by : [facility], [facility], [address] [place] [address] MCHC 32.7 32.3 - 35.7 g/dL [facility]ARN [facility] Comment:Testing performed by : [facility], [facility], [address] [place] [address] RDW CV 12.7 11.1 - 14.9 % [facility] Comment:Testing performed by : [facility] 2, [address] [place] [address] RDW SD 41.5 35.7 - 48.1 fL [facility] Comment:Testing performed by : [facility], [facility], [address] [place] [address] ANC Prelim 7.67(H) 1.50 - 6.50 K/cumm [facility] Comment: Interpretive Data The rapid ANC is a preliminary automated count and may vary from the final ANC (Neut Abs) reported in the WBC differential that follows. Current interpretive data was last revised 2024. Testing performed by: [facility], [facility], [address] [place] [address] Blood 05/26/2025 7:55 AM CDT 05/26/2025 7:56 AM CDT us Junaid Cifuentes MD PhD LAB BLOOD ORDERABLES Final Result [facility] [address] [facility] [employer] [place], [place] [id number] * 1,25 Dihydroxycholecalciferol (05/26/2025 7:55 AM CDT) Pathologist [facility] 1-25-di-OH Vit D 35 18 - 64 pg/mL [place] [facility] Comment: ADDITIONAL INFORMATION This test was developed and its performance characteristics determined by [facility] in a manner consistent with CLIA requirements. This test has not been cleared or approved by the U.S. Food and Drug Administration. Test Performed by: [facility] - [facility] [address] [place] [address] [employer] Vet: Angelique Gomez Ph.D.; CLIA# [id number] Testing performed by: [facility], [address] [place] [address] Blood 05/26/2025 7:55 AM CDT 05/26/2025 10:06 AM CDT us Junaid Cifuentes MD PhD LAB BLOOD ORDERABLES Final Result GORAN BJW[facility] [address] [place] [address] [place] [facility] * (ABNORMAL) PSA diagnostic (05/26/2025 [...] data last revised 22. Testing performed by: [facility], [address], [place] [address] Blood 05/26/2025 7:55 AM CDT 05/26/2025 8:23 AM CDT us Junaid Cifuentes MD PhD LAB BLOOD ORDERABLES Final Result [facility] [address] [place] [address] * (ABNORMAL) Comprehensive metabolic panel (05/26/2025 7:55 AM CDT) Sodium 141 135 - 145 mmol/L Comment:Testing performed by : [facility], [address], [place] [address] Potassium, pl 4.3 3.3 - 4.9 mmol/L CERNICHOLE BJWCH Comment:Testing performed by : [facility], [address], [place] [address] Chloride 101 97 - 110 mmol/L CERNICHOLE BJWCH Comment:Testing performed by : [facility], [address], [place] [address] CO2 30 22 - 32 mmol/L CERNICHOLE BJWCH Comment:Testing performed by : [facility], [address], [place] [address] Anion gap 10 2 - 15 mmol/L CERNICHOLE BJWCH Comment:Testing performed by : [facility], [address], [place] [address] BUN 22 6 - 25 mg/dL CERNICHOLE BJWCH Comment:Testing performed by : [facility], [address], [place] [address] Creatinine 0.90 0.80 - 1.30 mg/dL CERNER BJWCH Comment:Testing performed by : [facility], [address], [place] [address] Glucose 152 70 - 199 mg/dL CERNER [...] was last revised 2022. Testing performed by: [facility], [address], [place] [address] Calcium 9.6 8.5 - 10.3 mg/dL CERNER BJWCH Comment:Testing performed by : [facility], [address], [place] [address] Bilirubin, total 0.3 0.1 - 1.2 mg/dL CERNER BJWCH Comment:Testing performed by : [facility], [address], [place] [address] Protein, pl 6.4(L) 6.5 - 8.5 g/dL CERNER BJWCH Comment:Testing performed by : [facility], [address], [place] [address] Albumin 4.4 3.5 - 5.0 g/dL CERNER BJWCH Comment:Testing performed by : [facility], [address], [place] [address] Alk phos 76 40 - 130 Units/L CERNER BJWCH Comment:Testing performed by : [facility], [address], [place] [address] ALT 19 7 - 55 Units/L CERNER BJWCH Comment:Testing performed by : [facility], [address], [place] [address] AST 18 10 - 50 Units/L CERNER BJWCH Comment:Testing performed by : [facility], [address], [place] [address] Blood 05/26/2025 7:55 AM CDT 05/26/2025 8:23 AM CDT Junaid Cifuentes MD PhD LAB BLOOD ORDERABLES Edited Result - Final GORAN HELM [address] Department of Laboratories [place], [place] [id number] * (ABNORMAL) Urinalysis reflex to microscopic (05/05/2025 8:30 AM CDT) Color, ur Straw Yellow Comment:Testing performed by : [facility], [address], [place] [address] Clarity, ur Clear Clear CERNICHOLE BJWCH Comment:Testing performed by : [facility], [address], [place] [address] Specific gravity, ur 1.022 1.003 - 1.030 GORNA BJWCH Comment:Testing performed by : [facility], [address], [place] [address] pH, urine 6.0 GORAN BJWCH Comment: Interpretive Data U rine pH is affected by diet, medications, systemic acid-base disturbances, and renal tubular function. pH may affect urinary stone formation. For example, urine pH below 6.0 may help reduce the tendency for calcium phosphate stones and pH greater than 6.0 may reduce the tendency for uric acid stone formation. Source: [facility] [employer] Current Interpretive Data was last revised on 2017 Testing performed by: [facility], [address], [place] [address] Protein, ur ql 1+(A) Negative CERNER BJWCH Comment:Testing performed by : [facility], [address], [place] [address] Glucose, ur ql Negative Negative CERNER BJWCH Comment:Testing performed by : [facility], [address], [place] [address] Ketones, ur Negative Negative CERNER BJWCH Comment:Testing performed by : [facility], [address], [place] [address] Bilirubin, ur Negative Negative CERNER BJWCH Comment:Testing performed by : [facility], [address], [place] [address] Blood, ur 2+(A) Negative CERNER BJWCH Comment:Testing performed by : [facility], [address], [place] [address] Urobilinogen, ur <2.0 <2.0 mg/dL GORAN HELM Comment:Testing performed by : [facility], [address], [place] [address] Nitrite, ur Negative Negative GORAN HELM Comment:Testing performed by : [facility], [address], [place] [address] Leukocyte esterase, ur Negative Negative GORAN HELM Comment:Testing performed by : [facility], [address], [place] [address] UA reflex comment Reflex to microscopic UA will be performed. GORAN HELM Comment:Testing performed by : [facility], [address], [place] [address] Urine 05/05/2025 8:30 AM CDT 05/05/2025 9:20 AM CDT Junaid Cifuentes MD PhD LAB URINE ORDERABLES Final Result GORAN HELM [address] [place] [address] * (ABNORMAL) Urinalysis, microscopic only (05/05/2025 8:30 AM CDT) WBC, ur 0-5 0 - 5 /HPF Comment:Testing performed by : [facility], [address], [place] [address] RBC, ur 6-10(A) 0 - 2 /HPF GORAN HELM Comment:Testing performed by : [facility], [address], [place] [address] Mucous, ur Present(A) GORAN HELM Comment:Testing performed by : [facility], [address], [place] [address] Urine 05/05/2025 8:30 AM CDT 05/05/2025 9:20 AM CDT Junaid Cifuentes MD PhD LAB URINE ORDERABLES Final Result Performing Organization Address [facility] Co de Phone Number GORAN HEML [address] [facility] [address] * eGFR (05/05/2025 8:28 AM CDT) eGFR [...] was last reviewed 2021. Testing performed by: [facility], [address] [place] [address], [place] [address] Blood 05/05/2025 8:28 AM CDT 05/05/2025 8:49 AM CDT Junaid Cifuentes MD PhD LAB BLOOD ORDERABLES Final Result Performing Organization Address [facility] Co de Phone Number GORAN YOUSSEFWCH [address] [address] [facility]. Department [place], [place] [address] * (ABNORMAL) Differential, auto (05/05/2025 8:28 AM CDT) Neutrophil abs 5.58 1.50 - 6.50 K/cumm Comment:Testing performed by : [facility], [facility], [address] [place] [address] Imm gran abs 0.03 0.00 - 0.10 K/cumm CERNER BJWCH Comment:Testing performed by : [facility], [facility], [address] [place] [address] Lymphocyte abs 0.47(L) 0.80 - 3.30 K/cumm CERNER BJWCH Comment:Testing performed by : [facility], [facility], [address] [place] [address] Monocyte abs 0.38 0.20 - 0.80 K/cumm CERNER BJWCH Comment:Testing performed by : [facility], [facility], [address] [place] [address] Eosinophil abs 0.01 0.00 - 0.50 K/cumm CERNER BJWCH Comment:Testing performed by : [facility] 2, [address] [place] [address] Basophil abs 0.01 0.00 - 0.10 K/cumm CERNER BJWCH Comment:Testing performed by : [facility], [facility], [address] [place] [address] Neutrophil pct 85.9 % CERNER BJWCH Comment: Interpretive Data Percent cell count reference ranges are not reported, since discordance with absolute values may lead to misinterpretation of CBC data. Current Interpretive Data was last revised on 2017. Testing performed by: [facility], [facility], [address] [place] [address] Imm gran pct 0.5 % CERNER BJWCH Comment: Interpretive Data Percent cell count reference ranges are not reported, since discordance with absolute values may lead to misinterpretation of CBC data. Current Interpretive Data was last revised on 2017. Testing performed by: [facility], [facility], [address] [place] [address] Lymphocyte pct 7.3 % CERNER BJWCH Comment: Interpretive Data Percent cell count reference ranges are not reported, since discordance with absolute values may lead to misinterpretation of CBC data. Current Interpretive Data was last revised on 2017. Testing performed by: [facility], [facility], [address] [place] [address] Monocyte pct 5.9 % GORAN HELM Comment: Interpretive Data Percent cell count reference ranges are not reported, since discordance with absolute values may lead to misinterpretation of CBC data. Current Interpretive Data was last revised on 2017. Testing performed by: [facility], [facility], [address] [place] [address] Eosinophil pct 0.2 % GORAN HELM Comment: Interpretive Data Percent cell count reference ranges are not reported, since discordance with absolute values may lead to misinterpretation of CBC data. Current Interpretive Data was last revised on 2017. Testing performed by: [facility], [facility], [address] [place] [address] Basophil pct 0.2 % GORAN HELM Comment: Interpretive Data Percent cell count reference ranges are not reported, since discordance with absolute values may lead to misinterpretation of CBC data. Current Interpretive Data was last revised on 2017. Testing performed by: [facility], [facility], [address] [place] [address] Blood 05/05/2025 8:28 AM CDT 05/05/2025 8:34 AM CDT Junaid Cifuentes MD PhD LAB BLOOD ORDERABLES Final Result [facility] [address] [facility] Department [place] [address] * CBC with auto differential (05/05/2025 8:28 AM CDT) WBC 6.48 3.80 - 9.90 K/cumm Comment:Testing performed by : [facility], [facility], [address] [place] [address] Hgb 13.5 13.0 - 17.5 g/dL CERNER BJWCH Comment:Testing performed by : [facility], [facility], [address], [place] [address] Hct 40.5 38.9 - 50.3 % CERNER BJWCH Comment:Testing performed by : [facility] 2, [address], [place] [address] Plt 199 150 - 400 K/cumm CERNER BJWCH Comment:Testing performed by : [place] [address], [address], [place] [address] MPV 10.5 9.1 - 12.3 fL CERNER BJWCH Comment:Testing performed by : [place] [address], [address], [place] [address] RBC 4.61 4.30 - 5.80 M/cumm CERNER BJWCH Comment:Testing performed by : [place] [address], [address], [place] [address] MCV 87.9 81.3 - 96.4 fL CERNER BJWCH Comment:Testing performed by : [place] [address], [address], [place] [address] MCH 29.3 27.1 - 33.3 pg CERNER BJWCH Comment:Testing performed by : [place] [address], [address] [place] [address] MCHC 33.3 32.3 - 35.7 g/dL CERNER BJWCH Comment:Testing performed by : [place] [address], [address], [place] [address] RDW CV 12.5 11.1 - 14.9 % CERNER BJWCH Comment:Testing performed by : [place] [address], [address], [place] [address] RDW SD 40.3 35.7 - 48.1 fL CERNER BJWCH Comment:Testing performed by : [place] [address], [address], [place] [address] ANC Prelim 5.58 1.50 - 6.50 K/cumm GORAN HELM Comment: Interpretive Data The rapid ANC is a preliminary automated count and may vary from the final ANC (Neut Abs) reported in the WBC differential that follows. Current interpretive data was last revised 2024. Testing performed by: [facility], [facility] [address], [address], [place] [address] Blood 05/05/2025 8:28 AM CDT 05/05/2025 8:34 AM CDT Junaid Cifuentes MD PhD LAB BLOOD ORDERABLES Final Result Performing Organization Address City/[facility]/ZIP Co de Phone Number [facility] [address] [facility] [facility] [place] [address] * Uric acid (05/05/2025 8:28 AM CDT) Uric acid 3.5 3.0 - 8.0 mg/dL Comment:Testing performed by : [facility], [address], [place] [address] Blood 05/05/2025 8:28 AM CDT 05/05/2025 8:49 AM CDT Junaid Cifuentes MD PhD LAB BLOOD ORDERABLES Final Result Performing Organization Address City/[facility] Co de Phone Number [facility] [address] [facility] [facility] [place] [address] * Triglycerides (05/05/2025 8:28 AM CDT) Triglycerides [...] last revised on 2018. Testing performed by: [facility], [id number] [place], [place] [address] [address] Blood 05/05/2025 8:28 AM CDT 05/05/2025 8:49 AM CDT Junaid Cifuentes MD PhD LAB BLOOD ORDERABLES Final Result Performing Organization Address City/[facility] Co de Phone Number [facility] [address] [facility] [facility] [place] [address] * (ABNORMAL) PSA diagnostic (05/05/2025 8:28 AM CDT) Pathologist [facility] PSA-Total 61.58(H) <=6.20 ng/mL Comment: Interpretive Data [...] data last revised 22. Testing performed by: [facility], [id number] [place] [address] [place] [address] Blood 05/05/2025 8:28 AM CDT 05/05/2025 8:49 AM CDT us Junaid Cifuentes MD PhD LAB BLOOD ORDERABLES Final Result Performing Organization Address City/[facility] Co de Phone Number [facility]AN [facility] [address] [address] [facility]. [facility] [place] [address] * Phosphorus (05/05/2025 8:28 AM CDT) Pathologist [facility] Phosphorus, pl 3.3 2.3 - 4.5 mg/dL Comment:Testing performed by : [facility], [address] [place] [address] Blood 05/05/2025 8:28 AM CDT 05/05/2025 8:49 AM CDT Junaid Cifuentes MD PhD LAB BLOOD ORDERABLES Final Result Performing Organization Address City/[facility]/ZIP Co de Phone Number [facility] [address] [facility] [place] [address] * Lactate dehydrogenase (LD) (05/05/2025 8:28 AM CDT) [facility] Lactate dehydrogenase (LDH) 154 100 - 250 Units/L Comment:Testing performed by : [facility], [address] [place] [address] [place] [address] Blood 05/05/2025 8:2 8 AM CDT 05/05/2025 8:49 AM CDT Junaid Cifuentes MD PhD LAB BLOOD ORDERABLES Final Result Performing Organization Address [facility] Co de Phone Number [facility] [address] [address] [facility]. [facility] [place] [address] * (ABNORMAL) Creatine kinase (CK), total (05/05/2025 8:28 AM CDT) [facility] CK 28(L) 40 - 300 Units/L Comment:Testing performed by : [facility], [address] [facility], [place] [address] Blood 05/05/2025 8:28 AM CDT 05/05/2025 8:49 AM CDT Junaid Cifuentes MD PhD LAB BLOOD ORDERABLES Final Result Performing Organization Address City/[facility] Co de Phone Number [facility] [address] [address] [facility]. [facility] [place] [address] * (ABNORMAL) Comprehensive metabolic panel (05/05/2025 8:28 AM CDT) Sodium 141 135 - 145 mmol/L Comment:Testing performed by : [facility], [address], [place] [address] Potassium, pl 4.0 3.3 - 4.9 mmol/L CERNER BJWCH Comment:Testing performed by : [facility], [address], [place] [address] Chloride 102 97 - 110 mmol/L CERNER BJWCH Comment:Testing performed by : [facility], [address], [place] [address] CO2 28 22 - 32 mmol/L CERNER BJWCH Comment:Testing performed by : [facility], [address], [place] [address] Anion gap 11 2 - 15 mmol/L CERNER BJWCH Comment:Testing performed by : [facility], [address], [place] [address] BUN 18 6 - 25 mg/dL CERNER BJWCH Comment:Testing performed by : [facility], [address], [place] [address] Creatinine 0.70(L) 0.80 - 1.30 mg/dL CERNER BJWCH Comment:Testing performed by : [facility], [address], [place] [address] Glucose 142 70 - 199 mg/dL CERNER [...] was last revised 2022. Testing performed by: [facility], [address], [place] [address] Calcium 9.5 8.5 - 10.3 mg/dL CERNER BJWCH Comment:Testing performed by : [facility], [address], [place] [address] Bilirubin, total 0.3 0.1 - 1.2 mg/dL CERNER BJWCH Comment:Testing performed by : [facility], [address], [place] [address] Protein, pl 6.8 6.5 - 8.5 g/dL CERNER BJWCH Comment:Testing performed by : [facility], [address], [place] [address] Albumin 4.3 3.5 - 5.0 g/dL CERNER BJWCH Comment:Testing performed by : [facility], [address], [place] [address] Alk phos 74 40 - 130 Units/L CERNER BJWCH Comment:Testing performed by : [facility], [address], [place] [address] ALT 16 7 - 55 Units/L CERNER BJWCH Comment:Testing performed by : [facility], [address], [place] [address] AST 22 10 - 50 Units/L CERNER BJWCH Comment:Testing performed by : [facility], [address], [place] [address] Blood 05/05/2025 8:28 AM CDT 05/05/2025 8:49 AM CDT us Junaid Cifuentes MD PhD LAB BLOOD ORDERABLES Final Result [facility] [address] [place] [address] * IR Port Placement Chest > 5 Years (04/28/2025 10:13 AM CDT) Anatomical Region Laterality Modality Chest N/A X-Ray Angiograph y 04/28/2025 10:3 9 AM CDT Impressions 04/28/2025 10:39 AM CDT Successful chest wall port placement. PLAN: The catheter is ready for immediate use. Please note that a power injectable port was placed. When treatment is completed, removal can be scheduled by calling [facility] - [phone] [facility] - [phone] Electronically signed by: Donal Carrillo PA-C Narrative [...] was obtained. Prior to beginning the procedure, [place] Protocol was used to confirm the patient's [...] was obtained. Prior to beginning the procedure, [place] Protocol was used to confirm the patient's [...] completed, removal can be scheduled by calling [facility] - [phone] [facility] - [phone] Electronically signed by: Donal Carrillo PA-C Junaid Cifuentes MD PhD IMG IR PROCEDURES Fin al Result from Last 3 Months Insurance MEDICARE [facility] MEDICARE [employer] Care Teams Manager Mobile Relationship Specialty Start Date End Date Arvind Castellanos MD PCP - General 12/24/17 Patrick Perez MD [address] [address] Urology 07/27/21
--- OUTSIDE RECORDS SUMMARY | 2025-07-22 14:37 | XMS_ITS ---
Author Organization [facility] Address [address] [place] [address] Care Team Providers Care Faculty Neuropsychologist Name Role Phone Arvind Castellanos MD Primary Care Provider [phone] Patrick Perez MD Unavailable [phone] Active Problems Problem Noted Date Diagnosed Date [...] 01/24/2024 05/26/2025 No medications scheduled. Orders Kemal Giullaume MD Oncology Chemotherapy Treatment Plan Name Start Date Discontinue Date Treatment Medications Discontinue Reason Plan Provider Cycles [id number] - [facility] - - [id number] PART 1B DOSE EXPANSION ARM Cohort 11&13(Q3W x 4 induction cycles, Q6W maintenance) - ARX 517 5 04/14/2025 INV[facility] (/A [id number]) [id number] IVPB in 250 mLINV-[facility] brimonidine 0.2 % (/A [id number])[facility]V -[facility] Systane Complete PF (/A [id number])INV -[facility] Systane Nighttime Lubricant (/A [id number]) Progressive Disease Kemal Guillaume MD 7 of 8 cycles started Sipuleucel-T 14 Day Cycles - Prostate 01/24/2024 05/05/2024 [id number] actated ringers (PROVENGE) >50 million cell/250 mL [...]
--- OUTSIDE RECORDS SUMMARY | 2025-07-22 14:37 | XMS_ITS | Clinical Summary ---
Author Organization [facility] Address [address] [place] [address] Phone Care Team Providers Care Retail Advertising Account Executive Name Role Phone Arvind Castellanos MD Primary Care Provider [phone] Allergies Active Allergy Reactions Criticality Noted Date [...] Data STL ABSTRACTION Provider, Abstract 06/11/2025 Telephone [facility] Heart and Vascular - [address] [facility] [address] [address] [facility] [address] [place] [address] Franc Wyman MD Needs Appointment 06/10/2025 3:58 PM CDT - 06/10/2025 5:11 PM CDT Surgery [facility] Operating Room [address] [place] [address] Jessie Posada MD CYSTO CLOT EVACUATION BIPOLAR BLADDER FULGURATION AND URETHRAL DILATION 06/10/2025 3:42 PM CDT Anesthesia Event [facility] Operating Room [address] [place] [address] Aliyah Bone MD Fitzer, Julia N, AA 06/09/2025 External Device Data STL ABSTRACTION Provider, Abstract 06/08/2025 External Device Data STL ABSTRACTION Provider, Abstract 06/08/2025 External Device Data STL ABSTRACTION Provider, Abstract 06/04/2025 4:42 AM CDT - 06/11/2025 11:47 AM CDT Hospital Encounter [facility] Cardiovascular Progressive Care unit [address] [place] [address] Marco Antonio Gallego MD Amin, Birju V., [...] FUNCTION PANEL Routine 06/11/2025 4:50 AM CDT [facility] CYSTO W/DESTRUCTION OF LESIONS 06/10/2025 3:58 PM [...] - 9.8 K/uL 06/11/2025 5:02 AM CDT [facility] RBC 4.18(L) 4.50 - 5.40 M/uL 06/11/2025 5:02 AM CDT [facility] HEMOGLOBIN 12.5(L) 13.6 - 16.5 g/dL 06/11/2025 5:02 AM CDT [facility] HEMATOCRIT 36.3(L) 40.0 - 48.0 % 06/11/2025 5:02 AM CDT [facility] MCV 86.8 82.0 - 99.0 fL 06/11/2025 5:02 AM CDT [facility] MCH 29.9 27.2 - 32.6 pg 06/11/2025 5:02 AM CDT [facility] MCHC 34.4 31.5 - 35.5 g/dL 06/11/2025 5:02 AM CDT [facility] PLATELETS 313 140 - 350 K/uL 06/11/2025 5:02 AM CDT [facility] MPV 10.7 9.3 - 12.4 fL 06/11/2025 5:02 AM CDT [facility] RDW 12.5 11.5 - 14.5 % 06/11/2025 5:02 AM CDT [facility] RDW-STDEV 39.7 37.1 - 48.7 fL 06/11/2025 5:02 AM CDT [facility] Blood Venipuncture / Unknown 06/11/2025 4:50 AM CDT 06/11/2025 4:52 AM CDT Andrez Cerf Cyndee DO HEMATOLOGY ORDERABLES F inal Result Performing Organization Address City/[facility]/ZIP Co de Phone Number [facility] CLIA# [id number] [place] [address] * MAGNESIUM LEVEL (06/11/2025 4:50 AM CDT) Only the most recent of5 resultswithin the time period is included. MAGNESIUM 1.7 1.6 - 2.6 mg/dL 06/11/2025 5:26 AM CDT [facility] Blood Venipuncture / Unknown 06/11/2025 4:50 AM CDT 06/11/2025 4:52 AM CDT Andrez Cerf Cyndee DO CHEMISTRY ORDERABLES Fi nal Result Performing Organization Address City/[facility]/ZIP Co de Phone Number [facility] CLIA# [id number] [place] [address] * (ABNORMAL) RENAL FUNCTION PANEL (06/11/2025 4:50 AM CDT) Only the most recent of4 resultswithin the time period is included. SODIUM 142 136 - 145 mmol/L 06/11/2025 5:26 AM T [facility] POTASSIUM 4.3 3.4 - 5.1 mmol/L 06/11/2025 5:26 AM [facility] CHLORIDE 104 98 - 107 mmol/L 06/11/2025 5:26 AM [facility] CO2 28 22 - 29 mmol/L 06/11/2025 5:26 AM [facility] CALCIUM 9.1 8.6 - 10.4 mg/dL 06/11/2025 5:26 AM [facility] BUN 24(H) 6 - 20 mg/dL 06/11/2025 5:26 AM [facility] CREATININE 0.79 0.67 - 1.17 mg/dL 06/11/2025 5:26 AM [facility] Comment:The GFR result is no t clinically significant on patients <18 or >70 years of age. GLUCOSE 135(H) 74 - 99 mg/dL 06/11/2025 5:26 AM [facility] ALBUMIN 3.5 3.5 - 5.2 g/dL 06/11/2025 5:26 AM [facility] PHOSPHORUS 3.4 2.5 - 4.5 mg/dL 06/11/2025 5:26 AM [facility] GFR >60 mL/min/1.7 3 sq meter 06/11/2025 5:26 AM [facility] Comment:eGFR calculated with 2020 CKD-EPI equation. Vegetarian diet, extremely high or low muscle mass, and may affect results. Cystatin C with Glomerular Filtration Rate is a suitable alternative for these patients. ANION GAP 10 8 - 16 mmol/L 06/11/2025 5:26 AM [facility] Blood Venipuncture / Unknown 06/11/2025 4:50 AM CDT 06/11/2025 4:52 AM CDT Andrez Cotter DO CHEMISTRY ORDERABLES Fi nal Result Performing Organization Address [facility]/ZIP Co de Phone Number [id number] [place] [address] * TYPE AND SCREEN (06/10/2025 5:24 AM CDT) Only the most recent of2 resultswithin the time period is included. ABO GROUP B 06/10/2025 6:31 AM CDT [facility] RH (D) TYPE Positive 06/10/2025 6:31 AM CDT [facility] ANTIBODY SCREEN Negative 06/10/2025 6:31 AM CDT [facility] Blood Venipuncture / Unknown 06/10/2025 5:24 AM CDT 06/10/2025 5:37 AM CDT Nicholas Wall MD BLOOD BANK ORDERABLES Edited Res ult - Final Performing Organization Address [facility] Co de Phone Number [facility]# [id number] [place] [address] * URINE CULTURE (06/09/2025 6:36 PM CDT) Only the most recent of2 resultswithin the time period is included. CULTURE No growth at 24 hours 06/11/2025 8:02 AM CDT [facility] Urine URINE SPECIMEN OBTAINED BY CLEAN CATCH PROCEDURE / Unknown Collection / Unknown 06/09/2025 6:36 PM CDT 06/09/2025 8:10 PM CDT Selwyn Valencia DNP MICROBIOLOGY - GENERAL ORDERABLES Final Result Performing Organization Address City/[facility]/ZIP Co de Phone Number [facility] [id number] [address] [place] [address] * UNFRACTIONATED HEPARIN MONITORING (06/09/2025 6:53 AM CDT) [facility] ANTI-XA UNFRAC HEP <0.10 See Interpreta tion. IU/mL 06/09/2025 7:36 AM CDT [facility] Blood Venipuncture / Unknown 06/09/2025 6:53 AM CDT 06/09/2025 7:09 AM CDT Narrative [facility] - 06/09/2025 7:36 AM CDT Unfractionated Heparin Therapeutic Range: 0.30-0.70 IU/ml Refer to pharmacy adult heparin protocol for further recommendation. The reference range for this test is specific to the anticoagulant and is not appropriate for monitoring patients on a DOAC protocol. us Ulcies Rizo NP HEMATOLOGY ORDERABLES Final Res ult [facility] CLIA# [id number] [place] [address] * PTT (06/09/2025 6:53 AM CDT) [facility] PTT 26.5 23.1 - 37.1 seconds 06/09/2025 7:36 AM CDT [facility] Blood Venipuncture / Unknown 06/09/2025 6:53 AM CDT 06/09/2025 7:09 AM CDT us Ulices Rizo NP HEMATOLOGY ORDERABLES Final Res ult [facility] CLIA# [id number] [place] [address] * (ABNORMAL) TROPONIN (06/09/2025 5:15 AM CDT) Only the most recent of2 resultswithin the time period is included. [facility] TROPONIN T, 5TH GEN 271(HH) <=15 ng/L 06/09/2025 6:22 AM CDT [facility] Blood Venipuncture / Unknown 06/09/2025 5:15 AM CDT 06/09/2025 5:29 AM CDT Narrative [facility] - 06/09/2025 6:22 AM CDT Troponin elevated. Andrez Cotter DO CHEMISTRY ORDERABLES Fi nal Result [facility] CLIA# [id number] [place] [address] * EXTRA TUBE (URINE LÓPEZ) (06/08/2025 4:25 PM CDT) Only the most recent of2 resultswithin the time period is included. Urine URINE SPECIMEN OBTAINED BY CLEAN CATCH PROCEDURE / Unknown Collection / Unknown 06/08/2025 4:25 PM CDT 06/08/2025 4:41 PM CDT Andrez Cotter DO URINE ORDERABLES Final Result Performing Organization Address [facility] Co de Phone Number [facility] CLIA# [id number] [place] [address] * STREPTOCOCCUS PNEUMONIAE ANTIGEN (06/08/2025 4:25 PM CDT) [facility] STREPTOCOCCUS PNEUMONIAE AG NOT DETECTED Not Detected 06/08/2025 9:44 PM CDT [facility] Urine URINE SPECIMEN OBTAINED BY CLEAN CATCH PROCEDURE / Unknown Collection / Unknown 06/08/2025 4:25 PM CDT 06/08/2025 4:40 PM CDT Selwyn Valencia [facility] MICROBIOLOGY - GENERAL ORDERABLES Final Result Performing Organization Address City/[facility]/ZIP Co de Phone Number [facility] CLIA# [id number] [address] [facility] [address] * SODIUM, RANDOM URINE (06/08/2025 4:25 PM CDT) Only the most recent of2 resultswithin the time period is included. SODIUM, URINE 89 mmol/L 06/08/2025 5:20 PM CDT [facility] Comment:Reference range not established Urine URINE SPECIMEN OBTAINED BY CLEAN CATCH PROCEDURE / Unknown Collection / Unknown 06/08/2025 4:25 PM CDT 06/08/2025 4:41 PM CDT [facility] Cyndee DO URINE ORDERABLES Final Result Performing Organization Address [facility]/ZIP Co de Phone Number [facility] [id number] [place] [address] * CREATININE, RANDOM URINE (06/08/2025 4:25 PM CDT) Only the most recent of2 resultswithin the time period is included. CREATININE, URINE 87.6 40.0 - 278.0 mg/dL 06/08/2025 5:20 PM CDT [facility] Comment:Reference Range vari es with fluid intake and diet. Urine URINE SPECIMEN OBTAINED BY CLEAN CATCH PROCEDURE / Unknown Collection / Unknown 06/08/2025 4:25 PM CDT 06/08/2025 4:41 PM CDT Andrez BackupAgent Cyndee DO URINE ORDERABLES Final Result Performing Organization Address City/[facility]/ZIP Co de Phone Number [facility] [id number] [place] [address] * (ABNORMAL) URINALYSIS WITH REFLEX MICROSCOPIC (06/08/2025 4:25 PM CDT) Only the most recent of2 resultswithin the time period is included. COLOR UA Claudette(A) Pale to Dark Yellow 06/08/2025 4:56 PM CDT [facility] CLARITY UA Cloudy(A) Clear 06/08/2025 4:56 PM CDT [facility] SPECIFIC GRAVITY UA 1.013 1.003 - 1.035 06/08/2025 4:56 PM CDT [facility] PH UA 6.0 5.0 - 8.0 06/08/2025 4:56 PM CDT [facility] LEUKOCYTE ESTERASE UA Negative Negative 06/08/2025 4:56 PM CDT [facility] NITRITE UA Negative Negative 06/08/2025 4:56 PM CDT [facility] PROTEIN UA 2+(A) Negative 06/08/2025 4:56 PM CDT [facility] GLUCOSE UA 1+(A) Negative 06/08/2025 4:56 PM CDT [facility] KETONES UA 1+(A) Negative 06/08/2025 4:56 PM CDT [facility] UROBILINOGEN UA Normal <2.0 mg/dL 4:56 PM CDT [facility] BILIRUBIN UA Negative Negative 06/08/2025 4:56 PM CDT [facility] BLOOD UA 2+(A) Negative 06/08/2025 4:56 PM CDT [facility] WBC UA >100(A) 0 - 2 /hpf 06/08/2025 4:56 PM CDT [facility] RBC UA >100(A) 0 - 2 /hpf 06/08/2025 4:56 PM CDT [facility] BACTERIA UA 2+(A) Negative /hpf 06/08/2025 4:56 PM CDT [facility] EPITHELIAL CELLS, URINE 0-5 0 - 5 /hpf 06/08/2025 4:56 PM CDT [facility] HYALINE CAST None Seen None Seen, 0-2 /lpf 06/08/2025 4:56 PM CDT [facility] Urine URINE SPECIMEN OBTAINED BY CLEAN CATCH PROCEDURE / Unknown Collection / Unknown 06/08/2025 4:25 PM CDT 06/08/2025 4:41 PM CDT [facility] Montserrat Cotter DO URINE ORDERABLES Final Result [facility] Dailyevent [facility] CLIA# [id number] [address] [place] [address] * US RENAL AND BLADDER (06/08/2025 11:21 AM CDT) Anatomical Region Laterality Modality Abdomen Ultrasound 06/08/2025 11:2 1 AM CDT Impressions 06/08/2025 11:33 AM CDT IMPRESSION: 1. Pedunculated soft tissue mass within the bladder concerning for neoplasm. Direct visualization and/or tissue sampling is recommended for further evaluation. 2. Prominence of the right greater than left renal pelvis. DICTATION LOCATION: Location 7 - [facility] Narrative 06/08/2025 11:33 AM CDT [...] 527(HH) <=15 ng/L 06/08/2025 6:44 AM CDT [facility] Adrenaline Mobility [facility] DELTA 6HR TROPONIN T % 206(HH) See Interp. % 06/08/2025 6:44 AM CDT [facility] Dailyevent [facility] Blood Venipuncture / Unknown 06/08/2025 5:48 AM CDT 06/08/2025 6:12 AM CDT Narrative [facility] - 06/08/2025 6:44 AM CDT Troponin elevated. Delay in collection of timed specimen beyond recommended collection interval. Results must be interpreted in clinical context. Delta significant change. Francisco Guerra PA-C CHEMISTRY ORDERABLES Final Result [facility] CLIA# [id number] [place] [address] * (ABNORMAL) CBC WITH DIFFERENTIAL (06/08/2025 5:48 AM CDT) Only the most recent of5 resultswithin the time period is included. WBC 6.5 4.0 - 9.8 K/uL 06/08/2025 6:15 AM CDT [facility] RBC 3.85(L) 4.50 - 5.40 M/uL 06/08/2025 6:15 AM CDT [facility] HEMOGLOBIN 11.2(L) 13.6 - 16.5 g/dL 06/08/2025 6:15 AM CDT [facility] HEMATOCRIT 32.7(L) 40.0 - 48.0 % 06/08/2025 6:15 AM CDT [facility] MCV 84.9 82.0 - 99.0 fL 06/08/2025 6:15 AM CDT [facility] MCH 29.1 27.2 - 32.6 pg 06/08/2025 6:15 AM CDT [facility] MCHC 34.3 31.5 - 35.5 g/dL 06/08/2025 6:15 AM CDT [facility] RDW 12.3 11.5 - 14.5 % 06/08/2025 6:15 AM CDT [facility] RDW-STDEV 37.2 37.1 - 48.7 fL 06/08/2025 6:15 AM CDT [facility] PLATELETS 184 140 - 350 K/uL 06/08/2025 6:15 AM CDT [facility] MPV 10.9 9.3 - 12.4 fL 06/08/2025 6:15 AM CDT [facility] NEUTROPHILS 79 % 06/08/2025 6:15 AM CDT [facility] LYMPHOCYTES 4 % 06/08/2025 6:15 AM CDT [facility] MONOCYTES 15 % 06/08/2025 6:15 AM CDT [facility] EOSINOPHILS 0 % 06/08/2025 6:15 AM CDT [facility] BASOPHILS 0 % 06/08/2025 6:15 AM CDT [facility] IMMATURE GRANULOCYTES 1 % 06/08/2025 6:15 AM CDT [facility] Comment:IG (Immature Granulo cyte) count includes Metamyelocytes, Myelocytes, and Promyelocytes NEUTROPHIL ABSOLUTE 5.16 1.90 - 7.00 K/uL 06/08/2025 6:15 AM CDT [facility] LYMPHOCYTE ABSOLUTE 0.25(L) 0.70 - 4.50 K/uL 06/08/2025 6:15 AM CDT [facility] MONOCYTE ABSOLUTE 1.00 0.10 - 1.30 K/uL 06/08/2025 6:15 AM CDT [facility] EOSINOPHIL ABSOLUTE 0.00 0.00 - 0.70 K/uL 06/08/2025 6:15 AM CDT [facility] BASOPHILS ABSOLUTE 0.02 0.00 - 0.20 K/uL 06/08/2025 6:15 AM CDT [facility] IMMATURE GRANULOCYTES ABSOLUTE 0.08(H) 0.00 - 0.03 K/uL 06/08/2025 6:15 AM T [facility] Blood Venipuncture / Unknown 06/08/2025 5:48 AM CDT 06/08/2025 6:11 AM CDT Andrez Cotter DO HEMATOLOGY ORDERABLES F inal Result [facility] CLIA# [id number] [place] [address] * (ABNORMAL) TROPONIN 2 HR, 5TH GEN (06/07/2025 9:14 PM CDT) TROPONIN T, 2 HR 5TH GEN 186(HH) <=15 ng/L 06/07/2025 10:06 PM CDT [facility] Dailyevent [facility] Blood Venipuncture / Unknown 06/07/2025 9:14 PM CDT 06/07/2025 9:33 PM CDT Narrative [facility] Dailyevent [facility] - 06/07/2025 10:06 PM CDT Troponin elevated. Delay in collection of timed specimen beyond recommended collection interval. Results must be interpreted in clinical context. Unable to calculate delta. [employer] (formerly [employer]) PA-C CHEMISTRY ORDERABLES Final Result [id number] [place] [address] * (ABNORMAL) TROPONIN BASELINE, 5TH GEN (06/07/2025 8:55 PM CDT) TROPONIN T, BASELINE 5TH GEN 172(HH) <=15 ng/L 06/07/2025 10:05 PM CDT [facility] Dailyevent [facility] Blood Venipuncture / Unknown 06/07/2025 8:55 PM CDT 06/07/2025 9:33 PM CDT Narrative [facility] Dailyevent [facility] - 06/07/2025 10:05 PM CDT Troponin elevated. Mobile[employer] PA-C CHEMISTRY ORDERABLES Final Result [facility] [id number] [place] [address] * (ABNORMAL) HEMOGLOBIN AND HEMATOCRIT (06/07/2025 8:55 PM CDT) Only the most recent of2 resultswithin the time period is included. [facility] HEMOGLOBIN 11.6(L) 13.6 - 16.5 g/dL 06/07/2025 9:35 PM CDT [facility] HEMATOCRIT 33.5(L) 40.0 - 48.0 % 06/07/2025 9:35 PM CDT [facility] Blood Venipuncture / Unknown 06/07/2025 8:55 PM CDT 06/07/2025 9:34 PM CDT Francisco Guerra PA-C HEMATOLOGY ORDERABLES Final Result [facility] CLIA# [id number] [place] [address] * (ABNORMAL) BASIC METABOLIC PANEL (06/07/2025 8:55 PM CDT) Only the most recent of2 resultswithin the time period is included. [facility] SODIUM 142 136 - 145 mmol/L 06/07/2025 10:02 PM CDT [facility] POTASSIUM 3.3(L) 3.4 - 5.1 mmol/L 06/07/2025 10:02 PM CDT [facility] CHLORIDE 106 98 - 107 mmol/L 06/07/2025 10:02 PM CDT [facility] CO2 22 22 - 29 mmol/L 06/07/2025 10:02 PM CDT [facility] CALCIUM 9.2 8.6 - 10.4 mg/dL 06/07/2025 10:02 PM CDT [facility] BUN 18 6 - 20 mg/dL 06/07/2025 10:02 PM CDT [facility] CREATININE 1.17 0.67 - 1.17 mg/dL 06/07/2025 10:02 PM CDT [facility] Comment:The GFR result is no t clinically significant on patients <18 or >70 years of age. GLUCOSE 123(H) 74 - 99 mg/dL 06/07/2025 10:02 PM CDT [facility] GFR >60 mL/min/1.7 3 sq meter 06/07/2025 10:02 PM CDT [facility] Comment:eGFR calculated with 2020 CKD-EPI equation. Vegetarian diet, extremely high or low muscle mass, and may affect results. Cystatin C with Glomerular Filtration Rate is a suitable alternative for these patients. ANION GAP 14 8 - 16 mmol/L 06/07/2025 10:02 PM CDT [facility] Blood Venipuncture / Unknown 06/07/2025 8:55 PM CDT 06/07/2025 9:33 PM CDT Francisco Guerra PA-C CHEMISTRY ORDERABLES Final Result [facility] CLIA# [id number] [address] [place] [address] * EKG 12-LEAD (06/07/2025 7:56 PM CDT) Only the most recent of2 resultswithin the time period is included. 06/07/2025 7:56 PM CDT Narrative INTERFACE SYSTEM - 06/08/2025 6:48 [place] [address] Test Date: 2025-06-07 Pat Name: MAYANK JENKINS Department: 96 Room: [facility] 01 Gender: M Purchasing Coordinator: DEJAH : 1955 Requested By: MARCO ANTONIO PAEZ Order Number: [id number] Reading MD: Nadir Michaels Measurements Intervals [place] Rate: 75 P: 80 NH: 168 QRS: 115 QRSD: 142 T: 74 QT: 386 QTc: 431 Interpretive Statements Sinus rhythm with premature atrial complexes Right bundle branch block Abnormal ECG Compared to ECG 06/04/2025 07:27:46 Atrial premature complex(es) now present Electronically Signed On 06-08-2025 6:48:36 CDT by Nadir Michaels Procedure Note Provider, Historical - 06/08/[address] [address] Test Date: 2025-06-07 Pat Name: MAYANK JENKINS Department: 96 Room: [address] [place] [address] Gender: M Purchasing Coordinator: DEJAH : 1955 Requested By: MARCO ANTONIO PAEZ Order Number: [id number] Reading MD: Nadir Michaels Measurements Intervals [place] Rate: 75 P: 80 NH: 168 QRS: 115 QRSD: 142 T: 74 [...] - 145 mmol/L 06/06/2025 7:10 AM CDT [facility] POTASSIUM 3.1(L) 3.4 - 5.1 mmol/L 06/06/2025 7:10 AM CDT [facility] CHLORIDE 107 98 - 107 mmol/L 06/06/2025 7:10 AM CDT [facility] CO2 24 22 - 29 mmol/L 06/06/2025 7:10 AM CDT [facility] CALCIUM 9.1 8.6 - 10.4 mg/dL 06/06/2025 7:10 AM CDT [facility] BUN 14 6 - 20 mg/dL 06/06/2025 7:10 AM [facility] CREATININE 0.76 0.67 - 1.17 mg/dL 06/06/2025 7:10 AM [facility] Comment:The GFR result is no t clinically significant on patients <18 or >70 years of age. GLUCOSE 107(H) 74 - 99 mg/dL 06/06/2025 7:10 AM [facility] TOTAL PROTEIN 6.4 6.3 - 8.7 g/dL 06/06/2025 7:10 AM [facility] ALBUMIN 3.7 3.5 - 5.2 g/dL 06/06/2025 7:10 AM [facility] BILIRUBIN TOTAL 0.9 0.0 - 1.1 mg/dL 06/06/2025 7:10 AM [facility] ALKALINE PHOSPHATASE 47 40 - 150 U/L 06/06/2025 7:10 AM [facility] AST 29 0 - 41 U/L 06/06/2025 7:10 AM [facility] ALT 8 0 - 41 U/L 06/06/2025 7:10 AM [facility] GFR >60 mL/min/1.7 3 sq meter 06/06/2025 7:10 AM [facility] Comment:eGFR calculated with 2020 CKD-EPI equation. Vegetarian diet, extremely high or low muscle mass, and may affect results. Cystatin C with Glomerular Filtration Rate is a suitable alternative for these patients. ANION GAP 13 8 - 16 mmol/L 06/06/2025 7:10 AM [facility] Blood Venipuncture / Unknown 06/06/2025 5:30 AM CDT 06/06/2025 5:38 AM CDT us Orly Hernández DO CHEMISTRY ORDERABLES Final Resu lt [facility] CLIA# [id number] [place] [address] * LEGIONELLA ANTIGEN, URINE (06/05/2025 5:27 PM CDT) [facility] LEGIONELLA AG, URINE NOT DETECTED Not Detected 06/06/2025 2:49 PM CDT [facility] Urine URINE SPECIMEN OBTAINED BY CLEAN CATCH PROCEDURE / Unknown Collection / Unknown 06/05/2025 5:27 PM CDT 06/05/2025 9:20 PM CDT [facility] - 06/06/2025 2:49 PM CDT This test [...] is not detected in urine. Selwyn Valencia [facility] MICROBIOLOGY - GENERAL ORDERABLES Final Result [facility]# [id number] [address] [place] [address] * RESPIRATORY PATHOGEN PCR PANEL (06/05/2025 11:35 AM CDT) [facility] Respiratory Pathogen PCR Panel NOT DETECTED No respiratory pathogen nucleic acids detected. 06/05/2025 12:40 PM CDT [facility] COVID-19 PCR NOT DETECTED Not Detected 06/05/2025 12:40 PM CDT [facility] Upper Respiratory ENTIRE NASOPHARYNX / Unknown Collection / Unknown 06/05/2025 11:35 AM CDT 06/05/2025 11:46 AM CDT [facility] - 06/05/2025 12:40 PM CDT The [...] GENERAL ORDERABLES Final Result Performing Organization Address City/[facility]/ZIP Co de Phone Number [id number] [place] [address] * PROTIME-INR (06/05/2025 5:43 AM CDT) PROTIME 14.7 11.5 - 14.7 Seconds 06/05/2025 6:57 AM CDT [facility] INR 1.1 0.9 - 1.1 06/05/2025 6:57 AM CDT [facility] Blood Venipuncture / Unknown 06/05/2025 5:43 AM CDT 06/05/2025 6:26 AM CDT Genaro Mclean DO HEMATOLOGY ORDERABL ES Final Result Performing Organization Address [facility] Co de Phone Number [facility]# [id number] [place] [address] * (ABNORMAL) PROCALCITONIN (06/05/2025 3:30 AM CDT) PROCALCITONIN 1.10(H) <=0.25 ng/mL 06/05/2025 10:42 AM CDT [facility] Blood Venipuncture / Unknown 06/05/2025 3:30 AM CDT 06/05/2025 3:37 AM CDT Narrative [facility] - 06/05/2025 10:42 AM CDT The [...] and peaks within 6-24 hours. Selwyn Valencia [facility] CHEMISTRY ORDERABLES [facility] Result [facility] [id number] [place] [address] * (ABNORMAL) MANUAL DIFFERENTIAL (06/05/2025 3:30 AM CDT) Only the most recent of3 resultswithin the time period is included. ADJUSTED WBC 1.3 K/uL 06/05/2025 4:30 AM CDT [facility] NRBC PER 100 WBC 1(H) <=0 /100 WBC 06/05/2025 4:30 AM CDT [facility] SEGMENTED NEUTROPHILS 28 % 06/05/2025 4:30 AM CDT [facility] LYMPHOCYTES RELATIVE 58(H) 43 - 53 % 06/05/2025 4:30 AM CDT [facility] MONOCYTES RELATIVE 11 % 2024 4:30 AM CDT [facility] BASOPHILS RELATIVE 2 % 2024 4:30 AM CDT [facility] METAMYELOCYTES RELATIVE 1(H) <=0 % 06/05/2025 4:30 AM CDT [facility] NEUTROPHILS ABSOLUTE COUNT 0.37(LL) 1.90 - 7.00 K/uL 06/05/2025 4:30 AM CDT [facility] LYMPHOCYTES ABSOLUTE 0.76 0.70 - 4.50 K/uL 06/05/2025 4:30 AM CDT [facility] MONOCYTES ABSOLUTE 0.14 0.10 - 1.30 K/uL 06/05/2025 4:30 AM CDT [facility] BASOPHILS ABSOLUTE 0.02 0.00 - 0.20 K/uL 06/05/2025 4:30 AM CDT [facility] TOTAL CELLS COUNTED IN DIFF 110 06/05/2025 4:30 AM CDT [facility] RBC MORPHOLOGY abnormal 06/05/2025 4:30 AM CDT [facility] PLATELET EST. Adequate 06/05/2025 4:30 AM CDT [facility] ANISOCYTOSIS 1+ /hpf 06/05/2025 4:30 AM CDT [facility] POIKILOCYTES 2+ /hpf 06/05/2025 4:30 AM CDT [facility] SMUDGE CELLS Present /100 06/05/2025 4:30 AM CDT [facility] Blood Venipuncture / Unknown 06/05/2025 3:30 AM CDT 06/05/2025 3:40 AM CDT us Orly Hernández DO HEMATOLOGY ORDERABLES COM Final Result [facility] CLIA# [id number] [place] [address] * (ABNORMAL) C-REACTIVE PROTEIN (06/05/2025 3:30 AM CDT) CRP 149.0(H) <5.0 mg/L 06/05/2025 10:11 AM CDT [facility] Blood Venipuncture / Unknown 06/05/2025 3:30 AM CDT 06/05/2025 3:37 AM CDT us Selwyn Valencia DNP CHEMISTRY ORDERABLES Fi nal Result [facility] CLIA# [id number] [address] [place] [address] * CT CHEST ABDOMEN PELVIS W CONT [...] as above. DICTATION LOCATION: Location 7 - [facility] Narrative 06/04/2025 7:45 PM CDT [...] CULTURE No growth 06/10/2025 4:26 AM CDT [facility] Blood (Peripheral) Venipuncture / Unknown 06/04/2025 4:21 PM CDT 06/04/2025 5:01 PM CDT Orly Hernández DO MICROBIOLOGY - GENERAL ORDERABL ES Final Result [facility] [id number] [address] [facility] [place] [address] * ECHO COMPLETE - CONTRAST AND STRAIN IF INDICATED (06/04/2025 12:10 PM CDT) EJECTION FRACTION 64 INTERFACE SYSTEM 06/04/2025 11:4 1 AM CDT Narrative INTERFACE SYSTEM - 06/04/2025 12:14 PM CDT Transthoracic Echocardiogram Patient: Mayank Jenkins Study ID: [id number] Gender: M : 1955 Age: 70 Race: RAMON Height 180.3cm Study Date: 06/04/2025 Weight: 56.4kg Access. #: [id number] BP: 127 / 65 *Referring Physician:* Orly Hernández V. *Ordering Physician:* Orly Hernández V. *Roof Painter:Susan Orozco RDCS community product specialist: Nurse: Indications: High BNP. History: PMH: [...] values inside specified reference range. Procedure data: [facility] No prior study was available for [...] Prepared and Electronically Authenticated He Valle M.D. [id number]:14:20 Procedure Note He Valle MD - 06/04/2025 Transthoracic Echocardiogram Patient: Mayank Jenkins Study ID: [id number] Gender: M : 1955 Age: 70 Race: RAMON Height 180.3cm Study Date: 06/04/2025 Weight: 56.4kg Access. #: [id number] BP: 127 / 65 *Referring Physician:* Orly Hernández V. *Ordering Physician:* Orly Hernández V. *Roof Painter:* Erika Orozco [facility] community product specialist: Nurse: Indications: High BNP. History: PMH: [...] values inside specified reference range. Procedure data: [facility] No prior study was available for [...] Prepared and Electronically Authenticated He Valle M.D. [id number]:14:20 us Orly Hernández DO US ORDERABLES Final Result Performing Organization Address City/[facility]/ZIP Co de Phone Number INTERFACE SYSTEM Refer to clinic/hospital department * LACTIC ACID (06/04/2025 7:05 AM CDT) LACTIC ACID 1.0 <=2.0 mmol/L 06/04/2025 7:51 AM CDT [facility] Blood Venipuncture / Unknown 06/04/2025 7:05 AM CDT 06/04/2025 7:23 AM CDT us Orly Hernández DO CHEMISTRY ORDERABLES Final Resu lt Performing Organization Address [facility] Co de Phone Number [facility] CLIA# [id number] [place] [address] * XR PRIOR STUDY (06/03/2025 7:35 PM CDT) Narrative [facility] POINT [facility] CARE - 06/04/2025 4:17 PM CDT This exam was auto finalized to allow images to be scanned to PACS. External Provider [facility] DIAGNOSTIC IMAGING ORDERA BLES Final Result Performing Organization Address [facility] Co de Phone Number [facility] POINT [facility] CARE CLIA # [id number] [id number] [place] [address] from Last 3 Months Insurance MEDICARE PART A AND B [facility] RX [place] Medicare Part D RX [employer] (INTERNAL) [facility] Internal Plans Advance Directives For more information, please contact: [phone] * Full Code (Latest Code Status on File) Date Activated Date Inactivated Comments 06/04/2025 7:59 AM 06/11/2025 1:57 PM Care Teams Retail Advertising Account Executive Relationship Specialty Start Date End Date Arvind Castellanos MD [address] [place] [address] PCP - General Internal Medicine 06/04/25
--- OUTSIDE RECORDS SUMMARY | 2025-07-22 14:37 | XMS_ITS | Encounter Summary ---
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
--- OUTSIDE RECORDS SUMMARY | 2025-07-22 14:37 | XMS_ITS | Clinical Summary ---
Author Organization [facility] Address [address] [place] [address] Care Team Providers Care Teasel Gig Operator Name Role Phone Unavailable Primary Care Provider Unavailabl e Source Comments [facility],non-owned Affiliates and Associated Physician Practices is amultiple site organization consisting of ambulatory clinics and hospital sitesin [place], [place], [place] and [place]. This disclosure is being madepursuant to the Care Everywhere program and may not contain all information available regarding this patient. 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
--- OUTSIDE RECORDS SUMMARY | 2025-07-22 14:37 | XMS_ITS | Encounter Summary ---
Author Organization [facility] Address [address] [place] [address] Phone Care Team Providers Care Concrete Vault Maker Name Role Phone Arvind Castellanos MD Primary Care Provider [phone] Patrick Perez MD Unavailable [phone] Encounter Details Date Type Department Care Team (Late st Contact Info) Description 02/01/2023 Telephone [facility] Medicine Oncology [address] [place] [id number] Sandra Davila., B.A. 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
--- OUTSIDE RECORDS SUMMARY | 2025-07-22 14:37 | XMS_ITS ---
Author Organization [facility] Address [address] [place] [address] Phone Care Team Providers Care Esthetician Facialist Name Role Phone Arvind Castellanos MD Primary Care Provider [phone] Active Problems Problem Noted Date Diagnosed Date [...]
--- OUTSIDE RECORDS SUMMARY | 2025-07-22 14:37 | XMS_ITS | Clinical Summary ---
Author Organization [facility] Address [address] [place] [address] Care Team Providers Care Basting Cleaner Name Role Phone Arvind Castellanos MD Primary Care Provider Allergies Active Allergy Reactions Criticality Noted Date [...] by mouth daily. Active vitamin D2, ergocalciferol, 93382 UNITS capsule Take 50,000 Units by mouth. 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
--- OUTSIDE RECORDS SUMMARY | 2025-07-22 14:37 | XMS_ITS | Encounter Summary ---
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
== END 2025-07-22 14:36 | disposition home or self-care (01) ==
PROVIDERS: Emergency Provider Emergency Medicine; PCP Internal Medicine
DX: S62.109A Fracture of unspecified carpal bone, unspecified wrist, initial encounter for closed fracture (principal); C61 Malignant neoplasm of prostate; W19.XXXA Unspecified fall, initial encounter
CPT/HCPCS: 29125; 73090; 73110; 73502; 99284; A9270

== ENCOUNTER 2025-07-22 15:28 | Emergency (ER) | payer MEDICARE, OTHER, SELFPAY ==
--- NOTE | ~2025-07-22 | XR_ITS ---
EXAMINATION: XR hip LT min 3V w AP pelvis, 07/22/2025 15:45 CDT HISTORY: Left hip pain COMPARISON: No comparisons available. Findings: No acute fracture or malalignment. Moderate to severe degenerative changes within the acetabular femoral joints bilaterally with abnormal density in the femoral head suspicious for early avascular necrosis Soft tissues unremarkable. Impression: Degenerative changes detailed above. CT or MRI recommended Reviewed, dictated and finalized at location P. Impression: Degenerative changes detailed above. CT or MRI recommended
[2025-07-22 15:28] VITALS: BP 149/95; PULSE 114; RESP 18; TEMP 36.7; O2SAT 98
--- OUTSIDE RECORDS SUMMARY | 2025-07-22 15:39 | XMS_ITS | Encounter Summary ---
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
--- OUTSIDE RECORDS SUMMARY | 2025-07-22 15:41 | XMS_ITS | Clinical Summary ---
Author Organization [facility] [employer] Address [address] [place] [address] Care Team Providers Care Polymerization Engineer Name Role Phone Unavailable Primary Care Provider Unavailabl e Source Comments [facility] [employer]non-owned Affiliates and Associated Physician Practices is amultiple site organization consisting of ambulatory clinics and hospital sitesin [place], [place], [place] and [place]. This disclosure is being madepursuant to the Care Everywhere program and may not contain all information available regarding this patient. Last updated 18.[facility] [employer] 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
--- OUTSIDE RECORDS SUMMARY | 2025-07-22 15:41 | XMS_ITS | Clinical Summary ---
Author Organization [facility] Address [address] [place] [address] Phone Care Team Providers Care Counselor Aid Name Role Phone Arvind Castellanos MD Primary Care Provider [phone] Allergies Active Allergy Reactions Criticality Noted Date [...] Data STL ABSTRACTION Provider, Abstract 06/11/2025 Telephone [facility] Heart and Vascular - [address] [address] [facility] [address] [place] [address] Franc Wyman MD Needs Appointment 06/10/2025 3:58 PM CDT - 06/10/2025 5:11 PM CDT Surgery [facility] Operating Room [address] [place] [address] Jessie Posada MD CYSTO CLOT EVACUATION BIPOLAR BLADDER FULGURATION AND URETHRAL DILATION 06/10/2025 3:42 PM CDT Anesthesia Event [facility] Operating Room [address] [place] [address] Aliyah Bone MD Fitzer, Julia N, AA 06/09/2025 External Device Data STL ABSTRACTION Provider, Abstract 06/08/2025 External Device Data STL ABSTRACTION Provider, Abstract 06/08/2025 External Device Data STL ABSTRACTION Provider, Abstract 06/04/2025 4:42 AM CDT - 06/11/2025 11:47 AM CDT Hospital Encounter [facility] Cardiovascular Progressive Care unit [address] [place] [address] Marco Antonio Gallego MD Amin, Birju V., [...] FUNCTION PANEL Routine 06/11/2025 4:50 AM CDT SC CYSTO W/DESTRUCTION OF LESIONS 06/10/2025 3:58 PM [...] - 9.8 K/uL 06/11/2025 5:02 AM CDT [facility] RBC 4.18(L) 4.50 - 5.40 M/uL 06/11/2025 5:02 AM CDT [facility] HEMOGLOBIN 12.5(L) 13.6 - 16.5 g/dL 06/11/2025 5:02 AM CDT [facility] HEMATOCRIT 36.3(L) 40.0 - 48.0 % 06/11/2025 5:02 AM CDT [facility] MCV 86.8 82.0 - 99.0 fL 06/11/2025 5:02 AM CDT [facility] MCH 29.9 27.2 - 32.6 pg 06/11/2025 5:02 AM CDT [facility] MCHC 34.4 31.5 - 35.5 g/dL 06/11/2025 5:02 AM CDT [facility] PLATELETS 313 140 - 350 K/uL 06/11/2025 5:02 AM CDT [facility] MPV 10.7 9.3 - 12.4 fL 06/11/2025 5:02 AM CDT [facility] RDW 12.5 11.5 - 14.5 % 06/11/2025 5:02 AM CDT [facility] RDW-STDEV 39.7 37.1 - 48.7 fL 06/11/2025 5:02 AM CDT [facility] Blood Venipuncture / Unknown 06/11/2025 4:50 AM CDT 06/11/2025 4:52 AM CDT Andrez Cerf Cyndee DO HEMATOLOGY ORDERABLES F inal Result Performing Organization Address City/[facility]/ZIP Co de Phone Number [facility] CLIA# [id number] [place] [address] * MAGNESIUM LEVEL (06/11/2025 4:50 AM CDT) Only the most recent of5 resultswithin the time period is included. MAGNESIUM 1.7 1.6 - 2.6 mg/dL 06/11/2025 5:26 AM CDT [facility] Blood Venipuncture / Unknown 06/11/2025 4:50 AM CDT 06/11/2025 4:52 AM CDT Andrez Cerf Cyndee DO CHEMISTRY ORDERABLES Fi nal Result Performing Organization Address City/[facility]/ZIP Co de Phone Number [facility] CLIA# [id number] [place] [address] * (ABNORMAL) RENAL FUNCTION PANEL (06/11/2025 4:50 AM CDT) Only the most recent of4 resultswithin the time period is included. SODIUM 142 136 - 145 mmol/L 06/11/2025 5:26 AM T [facility] POTASSIUM 4.3 3.4 - 5.1 mmol/L 06/11/2025 5:26 AM [facility] CHLORIDE 104 98 - 107 mmol/L 06/11/2025 5:26 AM [facility] CO2 28 22 - 29 mmol/L 06/11/2025 5:26 AM [facility] CALCIUM 9.1 8.6 - 10.4 mg/dL 06/11/2025 5:26 AM [facility] BUN 24(H) 6 - 20 mg/dL 06/11/2025 5:26 AM [facility] CREATININE 0.79 0.67 - 1.17 mg/dL 06/11/2025 5:26 AM [facility] Comment:The GFR result is no t clinically significant on patients <18 or >70 years of age. GLUCOSE 135(H) 74 - 99 mg/dL 06/11/2025 5:26 AM [facility] ALBUMIN 3.5 3.5 - 5.2 g/dL 06/11/2025 5:26 AM [facility] PHOSPHORUS 3.4 2.5 - 4.5 mg/dL 06/11/2025 5:26 AM [facility] GFR >60 mL/min/1.7 3 sq meter 06/11/2025 5:26 AM [facility] Comment:eGFR calculated with 2020 CKD-EPI equation. Vegetarian diet, extremely high or low muscle mass, and may affect results. Cystatin C with Glomerular Filtration Rate is a suitable alternative for these patients. ANION GAP 10 8 - 16 mmol/L 06/11/2025 5:26 AM [facility] Blood Venipuncture / Unknown 06/11/2025 4:50 AM CDT 06/11/2025 4:52 AM CDT Andrez Cotter DO CHEMISTRY ORDERABLES Fi nal Result Performing Organization Address [facility]/ZIP Co de Phone Number [facility]# [id number] [place] [address] * TYPE AND SCREEN (06/10/2025 5:24 AM CDT) Only the most recent of2 resultswithin the time period is included. ABO GROUP B 06/10/2025 6:31 AM CDT [facility] RH (D) TYPE Positive 06/10/2025 6:31 AM CDT [facility] ANTIBODY SCREEN Negative 06/10/2025 6:31 AM CDT [facility] Blood Venipuncture / Unknown 06/10/2025 5:24 AM CDT 06/10/2025 5:37 AM CDT Nicholas Wall MD BLOOD BANK ORDERABLES Edited Res ult - Final Performing Organization Address [facility] Co de Phone Number [facility]# [id number] [place] [address] * URINE CULTURE (06/09/2025 6:36 PM CDT) Only the most recent of2 resultswithin the time period is included. CULTURE No growth at 24 hours 06/11/2025 8:[address] [facility] Urine URINE SPECIMEN OBTAINED BY CLEAN CATCH PROCEDURE / Unknown Collection / Unknown 06/09/2025 6:36 PM CDT 06/09/2025 8:10 PM CDT Selwyn Valencia DNP MICROBIOLOGY - GENERAL ORDERABLES Final Result Performing Organization Address City/[facility]/ZIP Co de Phone Number [facility] [id number] [address] [place] [address] * UNFRACTIONATED HEPARIN MONITORING (06/09/2025 6:53 AM CDT) [facility] ANTI-XA UNFRAC HEP <0.10 See Interpreta tion. IU/mL 06/09/2025 7:36 AM CDT [facility] Blood Venipuncture / Unknown 06/09/2025 6:53 AM CDT 06/09/2025 7:09 AM CDT Narrative [facility] - 06/09/2025 7:36 AM CDT Unfractionated Heparin Therapeutic Range: 0.30-0.70 IU/ml Refer to pharmacy adult heparin protocol for further recommendation. The reference range for this test is specific to the anticoagulant and is not appropriate for monitoring patients on a DOAC protocol. us Ulices Rizo NP HEMATOLOGY ORDERABLES Final Res ult [facility] CLIA# [id number] [place] [address] * PTT (06/09/2025 6:53 AM CDT) [facility] PTT 26.5 23.1 - 37.1 seconds 06/09/2025 7:36 AM CDT [facility] Blood Venipuncture / Unknown 06/09/2025 6:53 AM CDT 06/09/2025 7:09 AM CDT us Ulices Rizo NP HEMATOLOGY ORDERABLES Final Res ult [facility] CLIA# [id number] [place] [address] * (ABNORMAL) TROPONIN (06/09/2025 5:15 AM CDT) Only the most recent of2 resultswithin the time period is included. [facility] TROPONIN T, 5TH GEN 271(HH) <=15 ng/L 06/09/2025 6:22 AM CDT [facility] Blood Venipuncture / Unknown 06/09/2025 5:15 AM CDT 06/09/2025 5:29 AM CDT Narrative [facility] - 06/09/2025 6:22 AM CDT Troponin elevated. Andrez Cotter DO CHEMISTRY ORDERABLES Fi nal Result [facility] CLIA# [id number] [place] [address] * EXTRA TUBE (URINE LÓPEZ) (06/08/2025 4:25 PM CDT) Only the most recent of2 resultswithin the time period is included. Urine URINE SPECIMEN OBTAINED BY CLEAN CATCH PROCEDURE / Unknown Collection / Unknown 06/08/2025 4:25 PM CDT 06/08/2025 4:41 PM CDT Andrez Cotter DO URINE ORDERABLES Final Result Performing Organization Address [facility] Co de Phone Number [facility] CLIA# [id number] [place] [address] * STREPTOCOCCUS PNEUMONIAE ANTIGEN (06/08/2025 4:25 PM CDT) [facility] STREPTOCOCCUS PNEUMONIAE AG NOT DETECTED Not Detected 06/08/2025 9:[address] [facility] Urine URINE SPECIMEN OBTAINED BY CLEAN CATCH PROCEDURE / Unknown Collection / Unknown 06/08/2025 4:25 PM CDT 06/08/2025 4:40 PM CDT Selwyn Valencia [facility] MICROBIOLOGY - GENERAL ORDERABLES Final Result Performing Organization Address City/[facility]/ZIP Co de Phone Number [facility] CLIA# [id number] [address] [place] [address] * SODIUM, RANDOM URINE (06/08/2025 4:25 PM CDT) Only the most recent of2 resultswithin the time period is included. SODIUM, URINE 89 mmol/L 06/08/2025 5:20 PM CDT [facility] Comment:Reference range not established Urine URINE SPECIMEN OBTAINED BY CLEAN CATCH PROCEDURE / Unknown Collection / Unknown 06/08/2025 4:25 PM CDT 06/08/2025 4:41 PM CDT [facility] Cyndee DO URINE ORDERABLES Final Result Performing Organization Address [facility]/ZIP Co de Phone Number [facility]# [id number] [place] [address] * CREATININE, RANDOM URINE (06/08/2025 4:25 PM CDT) Only the most recent of2 resultswithin the time period is included. CREATININE, URINE 87.6 40.0 - 278.0 mg/dL 06/08/2025 5:20 PM CDT [facility] Comment:Reference Range vari es with fluid intake and diet. Urine URINE SPECIMEN OBTAINED BY CLEAN CATCH PROCEDURE / Unknown Collection / Unknown 06/08/2025 4:25 PM CDT 06/08/2025 4:41 PM CDT Andrez [employer] Cyndee DO URINE ORDERABLES Final Result Performing Organization Address City/[facility]/ZIP Co de Phone Number [facility]# [id number] [place] [address] * (ABNORMAL) URINALYSIS WITH REFLEX MICROSCOPIC (06/08/2025 4:25 PM CDT) Only the most recent of2 resultswithin the time period is included. COLOR UA Claudette(A) Pale to Dark Yellow 06/08/2025 4:56 PM CDT [facility] CLARITY UA Cloudy(A) Clear 06/08/2025 4:56 PM CDT [facility] SPECIFIC GRAVITY UA 1.013 1.003 - 1.035 06/08/2025 4:56 PM CDT [facility] PH UA 6.0 5.0 - 8.0 06/08/2025 4:56 PM CDT [facility] LEUKOCYTE ESTERASE UA Negative Negative 06/08/2025 4:56 PM CDT [facility] NITRITE UA Negative Negative 06/08/2025 4:56 PM CDT [facility] PROTEIN UA 2+(A) Negative 06/08/2025 4:56 PM CDT [facility] GLUCOSE UA 1+(A) Negative 06/08/2025 4:56 PM CDT [facility] KETONES UA 1+(A) Negative 06/08/2025 4:56 PM CDT [facility] UROBILINOGEN UA Normal <2.0 mg/dL 4:56 PM CDT [facility] BILIRUBIN UA Negative Negative 06/08/2025 4:56 PM CDT [facility] BLOOD UA 2+(A) Negative 06/08/2025 4:56 PM CDT [facility] WBC UA >100(A) 0 - 2 /hpf 06/08/2025 4:56 PM CDT [facility] RBC UA >100(A) 0 - 2 /hpf 06/08/2025 4:56 PM CDT [facility] BACTERIA UA 2+(A) Negative /hpf 06/08/2025 4:56 PM CDT [facility] EPITHELIAL CELLS, URINE 0-5 0 - 5 /hpf 06/08/2025 4:56 PM CDT [facility] HYALINE CAST None Seen None Seen, 0-2 /lpf 06/08/2025 4:56 PM CDT [facility] Urine URINE SPECIMEN OBTAINED BY CLEAN CATCH PROCEDURE / Unknown Collection / Unknown 06/08/2025 4:25 PM CDT 06/08/2025 4:41 PM CDT [facility] Montserrat Cotter DO URINE ORDERABLES Final Result [facility] [employer] [facility] CLIA# [id number] [place] [address] * US RENAL AND BLADDER (06/08/2025 11:21 AM CDT) Anatomical Region Laterality Modality Abdomen Ultrasound 06/08/2025 11:2 1 AM CDT Impressions 06/08/2025 11:33 AM CDT IMPRESSION: 1. Pedunculated soft tissue mass within the bladder concerning for neoplasm. Direct visualization and/or tissue sampling is recommended for further evaluation. 2. Prominence of the right greater than left renal pelvis. DICTATION LOCATION: Location 7 - [facility] Narrative 06/08/2025 11:33 AM CDT EXAMINATION: [...] 527(HH) <=15 ng/L 06/08/2025 6:44 AM CDT [facility] 6HR TROPONIN T % 206(HH) See Interp. % 06/08/2025 6:44 AM CDT [facility] [employer] [facility] Blood Venipuncture / Unknown 06/08/2025 5:48 AM CDT 06/08/2025 6:12 AM CDT Narrative [facility] - 06/08/2025 6:44 AM CDT Troponin elevated. Delay in collection of timed specimen beyond recommended collection interval. Results must be interpreted in clinical context. Delta significant change. Francisco Guerra PA-C CHEMISTRY ORDERABLES Final Result [facility] CLIA# [id number] [place] [address] * (ABNORMAL) CBC WITH DIFFERENTIAL (06/08/2025 5:48 AM CDT) Only the most recent of5 resultswithin the time period is included. WBC 6.5 4.0 - 9.8 K/uL 06/08/2025 6:15 AM CDT [facility] RBC 3.85(L) 4.50 - 5.40 M/uL 06/08/2025 6:15 AM CDT [facility] HEMOGLOBIN 11.2(L) 13.6 - 16.5 g/dL 06/08/2025 6:15 AM CDT [facility] HEMATOCRIT 32.7(L) 40.0 - 48.0 % 06/08/2025 6:15 AM CDT [facility] MCV 84.9 82.0 - 99.0 fL 06/08/2025 6:15 AM CDT [facility] MCH 29.1 27.2 - 32.6 pg 06/08/2025 6:15 AM CDT [facility] MCHC 34.3 31.5 - 35.5 g/dL 06/08/2025 6:15 AM CDT [facility] RDW 12.3 11.5 - 14.5 % 06/08/2025 6:15 AM CDT [facility] RDW-STDEV 37.2 37.1 - 48.7 fL 06/08/2025 6:15 AM CDT [facility] PLATELETS 184 140 - 350 K/uL 06/08/2025 6:15 AM CDT [facility] MPV 10.9 9.3 - 12.4 fL 06/08/2025 6:15 AM CDT [facility] NEUTROPHILS 79 % 06/08/2025 6:15 AM CDT [facility] LYMPHOCYTES 4 % 06/08/2025 6:15 AM CDT [facility] MONOCYTES 15 % 06/08/2025 6:15 AM CDT [facility] EOSINOPHILS 0 % 06/08/2025 6:15 AM CDT [facility] BASOPHILS 0 % 06/08/2025 6:15 AM CDT [facility] IMMATURE GRANULOCYTES 1 % 06/08/2025 6:15 AM CDT [facility] Comment:IG (Immature Granulo cyte) count includes Metamyelocytes, Myelocytes, and Promyelocytes NEUTROPHIL ABSOLUTE 5.16 1.90 - 7.00 K/uL 06/08/2025 6:15 AM CDT [facility] LYMPHOCYTE ABSOLUTE 0.25(L) 0.70 - 4.50 K/uL 06/08/2025 6:15 AM CDT [facility] MONOCYTE ABSOLUTE 1.00 0.10 - 1.30 K/uL 06/08/2025 6:15 AM CDT [facility] EOSINOPHIL ABSOLUTE 0.00 0.00 - 0.70 K/uL 06/08/2025 6:15 AM CDT [facility] BASOPHILS ABSOLUTE 0.02 0.00 - 0.20 K/uL 06/08/2025 6:15 AM CDT [facility] IMMATURE GRANULOCYTES ABSOLUTE 0.08(H) 0.00 - 0.03 K/uL 06/08/2025 6:15 AM T [facility] Blood Venipuncture / Unknown 06/08/2025 5:48 AM CDT 06/08/2025 6:11 AM CDT Andrez Cotter DO HEMATOLOGY ORDERABLES F inal Result [facility] CLIA# [id number] [place] [address] * (ABNORMAL) TROPONIN 2 HR, 5TH GEN (06/07/2025 9:14 PM CDT) TROPONIN T, 2 HR 5TH GEN 186(HH) <=15 ng/L 06/07/2025 10:06 PM CDT [facility] [employer] [facility] Blood Venipuncture / Unknown 06/07/2025 9:14 PM CDT 06/07/2025 9:33 PM CDT Narrative [facility] [employer] [facility] - 06/07/2025 10:06 PM CDT Troponin elevated. Delay in collection of timed specimen beyond recommended collection interval. Results must be interpreted in clinical context. Unable to calculate delta. [employer] PA-C CHEMISTRY ORDERABLES Final Result [facility] [id number] [place] [address] * (ABNORMAL) TROPONIN BASELINE, 5TH GEN (06/07/2025 8:55 PM CDT) TROPONIN T, BASELINE 5TH GEN 172(HH) <=15 ng/L 06/07/2025 10:05 PM CDT [facility] [employer] [facility] Blood Venipuncture / Unknown 06/07/2025 8:55 PM CDT 06/07/2025 9:33 PM CDT Narrative [facility] [employer] [facility] - 06/07/2025 10:05 PM CDT Troponin elevated. [employer] PA-C CHEMISTRY ORDERABLES Final Result [facility] [employer] [facility] [id number] [place] [address] * (ABNORMAL) HEMOGLOBIN AND HEMATOCRIT (06/07/2025 8:55 PM CDT) Only the most recent of2 resultswithin the time period is included. [facility] HEMOGLOBIN 11.6(L) 13.6 - 16.5 g/dL 06/07/2025 9:35 PM CDT [facility] HEMATOCRIT 33.5(L) 40.0 - 48.0 % 06/07/2025 9:35 PM CDT [facility] Blood Venipuncture / Unknown 06/07/2025 8:55 PM CDT 06/07/2025 9:34 PM CDT Francisco Guerra PA-C HEMATOLOGY ORDERABLES Final Result [facility] CLIA# [id number] [place] [address] * (ABNORMAL) BASIC METABOLIC PANEL (06/07/2025 8:55 PM CDT) Only the most recent of2 resultswithin the time period is included. [facility] SODIUM 142 136 - 145 mmol/L 06/07/2025 10:02 PM CDT [facility] POTASSIUM 3.3(L) 3.4 - 5.1 mmol/L 06/07/2025 10:02 PM CDT [facility] CHLORIDE 106 98 - 107 mmol/L 06/07/2025 10:02 PM CDT [facility] CO2 22 22 - 29 mmol/L 06/07/2025 10:02 PM CDT [facility] CALCIUM 9.2 8.6 - 10.4 mg/dL 06/07/2025 10:02 PM CDT [facility] BUN 18 6 - 20 mg/dL 06/07/2025 10:02 PM CDT [facility] CREATININE 1.17 0.67 - 1.17 mg/dL 06/07/2025 10:02 PM CDT [facility] Comment:The GFR result is no t clinically significant on patients <18 or >70 years of age. GLUCOSE 123(H) 74 - 99 mg/dL 06/07/2025 10:02 PM CDT [facility] GFR >60 mL/min/1.7 3 sq meter 06/07/2025 10:02 PM CDT [facility] Comment:eGFR calculated with 2020 CKD-EPI equation. Vegetarian diet, extremely high or low muscle mass, and may affect results. Cystatin C with Glomerular Filtration Rate is a suitable alternative for these patients. ANION GAP 14 8 - 16 mmol/L 06/07/2025 10:02 PM CDT [facility] Blood Venipuncture / Unknown 06/07/2025 8:55 PM CDT 06/07/2025 9:33 PM CDT Francisco Guerra PA-C CHEMISTRY ORDERABLES Final Result [facility] CLIA# [id number] [address] [place] [address] * EKG 12-LEAD (06/07/2025 7:56 PM CDT) Only the most recent of2 resultswithin the time period is included. 06/07/2025 7:56 PM CDT Narrative INTERFACE SYSTEM - 06/08/2025 6:48 [place] [address] Test Date: 2025-06-07 Pat Name: MAYANK JENKINS Department: 96 Room: 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1955 Requested By: MARCO ANTONIO PAEZ Order Number: [id number] Reading MD: Nadir Michaels Measurements Intervals [place] Rate: 75 P: 80 SC: 168 QRS: 115 QRSD: 142 T: 74 QT: 386 QTc: 431 Interpretive Statements Sinus rhythm with premature atrial complexes Right bundle branch block Abnormal ECG Compared to ECG 06/04/2025 07:27:46 Atrial premature complex(es) now present Electronically Signed On 06-08-2025 6:48:36 CDT by Nadir Micheals Procedure Note Provider, Historical - 06/08/[address] [address] Test Date: 2025-06-07 Pat Name: MAYANK JENKINS Department: 96 Room: [address] [place] [address] Gender: M 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 : 1955 Requested By: MARCO ANTONIO PAEZ Order Number: [id number] Reading MD: Nadir Michaels Measurements Intervals [place] Rate: 75 P: 80 SC: 168 QRS: 115 QRSD: 142 T: 74 [...] - 145 mmol/L 06/06/2025 7:10 AM CDT [facility] POTASSIUM 3.1(L) 3.4 - 5.1 mmol/L 06/06/2025 7:10 AM CDT [facility] CHLORIDE 107 98 - 107 mmol/L 06/06/2025 7:10 AM CDT [facility] CO2 24 22 - 29 mmol/L 06/06/2025 7:10 AM CDT [facility] CALCIUM 9.1 8.6 - 10.4 mg/dL 06/06/2025 7:10 AM CDT [facility] BUN 14 6 - 20 mg/dL 06/06/2025 7:10 AM [facility] CREATININE 0.76 0.67 - 1.17 mg/dL 06/06/2025 7:10 AM [facility] Comment:The GFR result is no t clinically significant on patients <18 or >70 years of age. GLUCOSE 107(H) 74 - 99 mg/dL 06/06/2025 7:10 AM [facility] TOTAL PROTEIN 6.4 6.3 - 8.7 g/dL 06/06/2025 7:10 AM [facility] ALBUMIN 3.7 3.5 - 5.2 g/dL 06/06/2025 7:10 AM [facility] BILIRUBIN TOTAL 0.9 0.0 - 1.1 mg/dL 06/06/2025 7:10 AM [facility] ALKALINE PHOSPHATASE 47 40 - 150 U/L 06/06/2025 7:10 AM [facility] AST 29 0 - 41 U/L 06/06/2025 7:10 AM [facility] ALT 8 0 - 41 U/L 06/06/2025 7:10 AM [facility] GFR >60 mL/min/1.7 3 sq meter 06/06/2025 7:10 AM [facility] Comment:eGFR calculated with 2020 CKD-EPI equation. Vegetarian diet, extremely high or low muscle mass, and may affect results. Cystatin C with Glomerular Filtration Rate is a suitable alternative for these patients. ANION GAP 13 8 - 16 mmol/L 06/06/2025 7:10 AM [facility] Blood Venipuncture / Unknown 06/06/2025 5:30 AM CDT 06/06/2025 5:38 AM CDT us Orly Hernández DO CHEMISTRY ORDERABLES Final Resu lt [facility] CLIA# [id number] [place] [address] * LEGIONELLA ANTIGEN, URINE (06/05/2025 5:27 PM CDT) [facility] LEGIONELLA AG, URINE NOT DETECTED Not Detected 06/06/2025 2:[address] [facility] Urine URINE SPECIMEN OBTAINED BY CLEAN CATCH PROCEDURE / Unknown Collection / Unknown 06/05/2025 5:27 PM CDT 06/05/2025 9:20 PM CDT [facility] - 06/06/2025 2:49 PM CDT This [...] is not detected in urine. Selwyn Valencia [facility] MICROBIOLOGY - GENERAL ORDERABLES Final Result [facility]# [id number] [address] [place] [address] * RESPIRATORY PATHOGEN PCR PANEL (06/05/2025 11:35 AM CDT) [facility] Respiratory Pathogen PCR Panel NOT DETECTED No respiratory pathogen nucleic acids detected. 06/05/2025 12:40 PM CDT [facility] COVID-19 PCR NOT DETECTED Not Detected 06/05/2025 12:40 PM CDT [facility] Upper Respiratory ENTIRE NASOPHARYNX / Unknown Collection / Unknown 06/05/2025 11:35 AM CDT 06/05/2025 11:46 AM CDT [facility] - 06/05/2025 12:40 PM CDT The Film [...] GENERAL ORDERABLES Final Result Performing Organization Address City/[facility]/ZIP Co de Phone Number [facility] [facility] [id number] [place] [address] * PROTIME-INR (06/05/2025 5:43 AM CDT) PROTIME 14.7 11.5 - 14.7 Seconds 06/05/2025 6:57 AM CDT [facility] INR 1.1 0.9 - 1.1 06/05/2025 6:57 AM CDT [facility] Blood Venipuncture / Unknown 06/05/2025 5:43 AM CDT 06/05/2025 6:26 AM CDT Genaro Mclean DO HEMATOLOGY ORDERABL ES Final Result Performing Organization Address [facility] Co de Phone Number [facility]# [id number] [place] [address] * (ABNORMAL) PROCALCITONIN (06/05/2025 3:30 AM CDT) PROCALCITONIN 1.10(H) <=0.25 ng/mL 06/05/2025 10:42 AM CDT [facility] Blood Venipuncture / Unknown 06/05/2025 3:30 AM CDT 06/05/2025 3:37 AM CDT Narrative [facility] - 06/05/2025 10:42 AM CDT The utility [...] and peaks within 6-24 hours. Selwyn Valencia [facility] CHEMISTRY ORDERABLES [facility] Result [facility]# [id number] [place] [address] * (ABNORMAL) MANUAL DIFFERENTIAL (06/05/2025 3:30 AM CDT) Only the most recent of3 resultswithin the time period is included. ADJUSTED WBC 1.3 K/uL 06/05/2025 4:30 AM CDT [facility] NRBC PER 100 WBC 1(H) <=0 /100 WBC 06/05/2025 4:30 AM CDT [facility] SEGMENTED NEUTROPHILS 28 % 06/05/2025 4:30 AM CDT [facility] LYMPHOCYTES RELATIVE 58(H) 43 - 53 % 06/05/2025 4:30 AM CDT [facility] MONOCYTES RELATIVE 11 % 2024 4:30 AM CDT [facility] BASOPHILS RELATIVE 2 % 2024 4:30 AM CDT [facility] METAMYELOCYTES RELATIVE 1(H) <=0 % 06/05/2025 4:30 AM CDT [facility] NEUTROPHILS ABSOLUTE COUNT 0.37(LL) 1.90 - 7.00 K/uL 06/05/2025 4:30 AM CDT [facility] LYMPHOCYTES ABSOLUTE 0.76 0.70 - 4.50 K/uL 06/05/2025 4:30 AM CDT [facility] MONOCYTES ABSOLUTE 0.14 0.10 - 1.30 K/uL 06/05/2025 4:30 AM CDT [facility] BASOPHILS ABSOLUTE 0.02 0.00 - 0.20 K/uL 06/05/2025 4:30 AM CDT [facility] TOTAL CELLS COUNTED IN DIFF 110 06/05/2025 4:30 AM CDT [facility] RBC MORPHOLOGY abnormal 06/05/2025 4:30 AM CDT [facility] PLATELET EST. Adequate 06/05/2025 4:30 AM CDT [facility] ANISOCYTOSIS 1+ /hpf 06/05/2025 4:30 AM CDT [facility] POIKILOCYTES 2+ /hpf 06/05/2025 4:30 AM CDT [facility] SMUDGE CELLS Present /100 06/05/2025 4:30 AM CDT [facility] Blood Venipuncture / Unknown 06/05/2025 3:30 AM CDT 06/05/2025 3:40 AM CDT us Orly Hernández DO HEMATOLOGY ORDERABLES COM Final Result [facility] CLIA# [id number] [place] [address] * (ABNORMAL) C-REACTIVE PROTEIN (06/05/2025 3:30 AM CDT) CRP 149.0(H) <5.0 mg/L 06/05/2025 10:11 AM CDT [facility] Blood Venipuncture / Unknown 06/05/2025 3:30 AM CDT 06/05/2025 3:37 AM CDT us Selwyn Valencia DNP CHEMISTRY ORDERABLES Fi nal Result [facility] CLIA# [id number] [address] [place] [address] * CT CHEST ABDOMEN PELVIS W CONT [...] as above. DICTATION LOCATION: Location 7 - [facility] Narrative 06/04/2025 7:45 PM CDT EXAM: CT [...] CULTURE No growth 06/10/2025 4:26 AM CDT [facility] Blood (Peripheral) Venipuncture / Unknown 06/04/2025 4:21 PM CDT 06/04/2025 5:01 PM CDT Orly Hernández DO MICROBIOLOGY - GENERAL ORDERABL ES Final Result [id number] [address] [facility] [address] [place] [address] * ECHO COMPLETE - CONTRAST AND STRAIN IF INDICATED (06/04/2025 12:10 PM CDT) EJECTION FRACTION 64 INTERFACE SYSTEM 06/04/2025 11:4 1 AM CDT Narrative INTERFACE SYSTEM - 06/04/2025 12:14 PM CDT Transthoracic Echocardiogram Patient: Mayank Jenkins Study ID: [id number] Gender: M : 1955 Age: 70 Race: RAMON Height 180.3cm Study Date: 06/04/2025 Weight: 56.4kg Access. #: [id number] BP: 127 / 65 *Referring Physician:* Orly Hernández V. *Ordering Physician:* Orly Hernández V. *Formal Wear Rental Clerk:Susan Orozco RDCS field radio technician: Nurse: Indications: High BNP. History: PMH: [...] values inside specified reference range. Procedure data: [facility] No prior study was available for [...] Prepared and Electronically Authenticated He Valle M.D. [id number]:14:20 Procedure Note He Valle MD - 06/04/2025 Transthoracic Echocardiogram Patient: Mayank Jenkins Study ID: [id number] Gender: M : 1955 Age: 70 Race: RAMON Height 180.3cm Study Date: 06/04/2025 Weight: 56.4kg Access. #: [id number] BP: 127 / 65 *Referring Physician:* Orly Hernández V. *Ordering Physician:* Orly Hernández V. *Formal Wear Rental Clerk:* Erika Orozco [facility] field radio technician: Nurse: Indications: High BNP. History: PMH: [...] values inside specified reference range. Procedure data: [facility] No prior study was available for [...] AM. Location: Bedside. Prepared and Electronically Authenticated eH Valle M.D. [id number]:14:20 us Orly Hernández DO US ORDERABLES Final Result Performing Organization Address City/[facility]/ZIP Co de Phone Number INTERFACE SYSTEM Refer to clinic/hospital department * LACTIC ACID (06/04/2025 7:05 AM CDT) LACTIC ACID 1.0 <=2.0 mmol/L 06/04/2025 7:51 AM CDT [facility] Blood Venipuncture / Unknown 06/04/2025 7:05 AM CDT 06/04/2025 7:23 AM CDT us Orly Hernández DO CHEMISTRY ORDERABLES Final Resu lt Performing Organization Address [facility] Co de Phone Number [facility] CLIA# [id number] [place] [address] * XR PRIOR STUDY (06/03/2025 7:35 PM CDT) Narrative [facility] POINT OF CARE - 06/04/2025 4:17 PM CDT This exam was auto finalized to allow images to be scanned to PACS. External Provider [facility] DIAGNOSTIC IMAGING ORDERA BLES Final Result Performing Organization Address [facility] Co de Phone Number [facility] POINT OF CARE CLIA # [id number] [place] [address] from Last 3 Months Insurance MEDICARE PART A AND B [facility] RX [employer] Medicare Part D RX [employer] (INTERNAL) [facility] Internal Plans Advance Directives For more information, please contact: [phone] * Full Code (Latest Code Status on File) Date Activated Date Inactivated Comments 06/04/2025 7:59 AM 06/11/2025 1:57 PM Care Teams Counselor Aid Relationship Specialty Start Date End Date Arvind Castellanos MD [address] [place] [address] PCP - General Internal Medicine 06/04/25
--- OUTSIDE RECORDS SUMMARY | 2025-07-22 15:41 | XMS_ITS | Encounter Summary ---
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
--- OUTSIDE RECORDS SUMMARY | 2025-07-22 15:41 | XMS_ITS ---
Author Organization [facility] Address [address] [place] [address] Care Team Providers Care Terrazzo Supervisor Name Role Phone Arvind Castellanos MD Primary Care Provider [phone] Patrick Perez MD Unavailable [phone] Active Problems Problem Noted Date Diagnosed Date [...] Treatment Medications Discontinue Reason Plan Provider Cycles [id number] - [facility] - - [id number] PART 1B DOSE EXPANSION ARM Cohort 11&13(Q3W x 4 induction cycles, Q6W maintenance) - ARX 517 5 04/14/2025 [facility] (/A [id number]) [id number] IVPB in 250 mLINV-[facility] brimonidine 0.2 % (/A [id number])[facility]V -[facility] Systane Complete PF (/A [id number])[facility]V -[facility] Systane Nighttime Lubricant (/A [id number]) Progressive Disease Kemal Guillaume MD 7 of 8 cycles started Sipuleucel-T 14 Day Cycles - Prostate 01/24/2024 05/05/2024 fxvplvklvs-[id number] actated ringers (PROVENGE) >50 million cell/250 mL [...]
--- OUTSIDE RECORDS SUMMARY | 2025-07-22 15:41 | XMS_ITS ---
Author Organization [facility] Address [address] [place] [address] Phone Care Team Providers Care Diesel Scoop Operator Name Role Phone Arvind Castellanos MD Primary Care Provider [phone] Active Problems Problem Noted Date Diagnosed Date [...]
--- OUTSIDE RECORDS SUMMARY | 2025-07-22 15:41 | XMS_ITS | Encounter Summary ---
Author Organization [facility] Address [address] [place] [address] Phone Care Team Providers Care Newscast Producer Name Role Phone Arvind Castellanos MD Primary Care Provider [phone] Patrick Perez MD Unavailable [phone] Encounter Details Date Type Department Care Team (Late st Contact Info) Description 02/01/2023 Telephone [facility] Medicine Oncology [address] [place] [id number] Sandra Davila., B.A. 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
--- OUTSIDE RECORDS SUMMARY | 2025-07-22 15:41 | XMS_ITS | Clinical Summary ---
Author Organization [facility] Address [address] [place] [address] Care Team Providers Care Composition Teacher Name Role Phone Arvind Castellanos MD Primary Care Provider [phone] Patrick Perez MD Unavailable [phone] Allergies Active Allergy Reactions Criticality Noted Date [...] Type Department Care Team Description 07/15/2025 Telephone [facility] Medicine Oncology [address] [place] [address] [address] [place] [address] Sharmin De La Vega, RN 07/14/2025 9:30 AM CDT Infusion [facility] at [address] [place] [address] 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); Prostate cancer (HCC); 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) 07/14/2025 9:00 AM CDT Office Visit [facility] Medicine Oncology [address] [place] [address] [address] [place] [address] Gladis Savage NP 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); Prostate cancer (HCC); 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); Osteoporosis without current pathological fracture, unspecified osteoporosis type 07/14/2025 8:00 AM CDT Clinical Support [facility] at [address] [place], [place] [address] Prostate cancer (HCC); 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) 06/23/2025 9:30 AM CDT Infusion [facility] at [address] [place] [phone] 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); Prostate cancer (HCC); 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) 06/23/2025 9:00 AM CDT Office Visit [facility] [address] [place], [place] [address] [phone] Junaid Cifuentes MD PhD 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); Prostate cancer (HCC) 06/23/2025 8:00 AM CDT Clinical Support [facility] at [address] [place] [phone] Prostate cancer (HCC); 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) 06/16/2025 9:00 AM CDT Office Visit [facility] [address] [place] [address] [place] [phone] Gladis Savage NP 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); Prostate cancer (HCC) 06/16/2025 8:00 AM CDT Clinical Support [address] [place] [address] Prostate cancer (HCC); 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) 06/14/2025 Orders Only [facility] Scanning, Provider 06/11/2025 Telephone [facility] [address] [place], [place] [address] [phone] Tierney Magana RN 06/09/2025 Telephone [facility] [address] [place] [address] [address] [place], [place] [phone] Sharmin De La Vega, POLINA 06/07/2025 [facility] [address] [place], [place] [address] Sharmin De La Vega, POLINA 06/04/2025 Telephone [facility] Medicine Oncology [address] [place] [address] [address] [place], [place] [phone] Yudith Orozco CMA 06/04/2025 [facility] Floor [address] [place] [phone] Sharmin De La Vega, POLINA 06/03/[address] [address] He Almaraz MD 06/03/2025 Telephone [facility] Medicine Oncology [facility] Floor [address] [place] [address] Radha Healy 05/27/2025 Telephone [facility] Medicine Oncology [address] [place] [address] [address] [place], [place] [phone] Alfonso Macias, POLINA 05/26/2025 9:30 AM CDT Infusion [facility] at [address] [place] [phone] 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); Prostate cancer (HCC); 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); Prostate cancer (HCC) 05/05/2025 9:00 AM CDT Office Visit [facility] [address] [place] [address] [address] [place] [address] Gladis Savage, ALTON Prostate cancer (HCC); 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) 05/05/2025 8:00 AM CDT Clinical Support [facility] at [address] [place] [address] Prostate cancer (HCC); 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); Research study patient 05/05/2025 Documentation [facility] at [facility] [address] [facility] [place] [address] Maye Cottrell, BUFFY 05/03/2025 Orders Only [facility] [address] [place] [address] [address] [place] [address] Junaid Cifuentes MD PhD Research study patient 04/28/2025 7:42 AM CDT - 04/28/2025 11:59 PM CDT Hospital Encounter [facility] [address] [place] [address] Vida Weller, Paulette Perdomo RN Prostate cancer (HCC) Discharge Disposition: Discharge to home or self care 04/27/2025 Telephone [facility] [address] [place] [address] Padmini Webb RN from Last 3 Months [...] on file 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 Testing performed by: [facility], [address] [place] [address] Blood 07/14/2025 7:48 AM CDT 07/14/2025 8:19 AM CDT Juanid Cifuentes MD PhD LAB BLOOD ORDERABLES Final Result [facility] [address] Department [place] [address] * (ABNORMAL) Differential, auto (07/14/2025 7:48 AM CDT) Neutrophil abs 12.29(H) 1.50 - 6.50 K/cumm Comment:Testing performed by : [facility], [address] [place] [address] Imm gran abs 0.07 0.00 - 0.10 K/cumm CERNER BJWCH Comment:Testing performed by : [facility], [address] [place] [address] Lymphocyte abs 0.64(L) 0.80 - 3.30 K/cumm GORAN BJWCH Comment:Testing performed by : [facility] 2, [address] [place] [address] Monocyte abs 0.76 0.20 - 0.80 K/cumm CERNER BJWCH Comment:Testing performed by : [facility] 2, [address] [place] [address] Eosinophil abs 0.01 0.00 - 0.50 K/cumm CERNICHOLE BJWCH Comment:Testing performed by : [facility] 2, [address] [place] [address] Basophil abs 0.03 0.00 - 0.10 K/cumm CERNICHOLE BJWCH Comment:Testing performed by : [facility] 2, [address] [place] [address] Neutrophil pct 89.1 % CERNER BJWCH Comment: Interpretive Data Percent cell count reference ranges are not reported, since discordance with absolute values may lead to misinterpretation of CBC data. Current Interpretive Data was last revised on 2017. Testing performed by: [facility], [facility], [address] [place] [address] Imm gran pct 0.5 % CERNER BJWCH Comment: Interpretive Data Percent cell count reference ranges are not reported, since discordance with absolute values may lead to misinterpretation of CBC data. Current Interpretive Data was last revised on 2017. Testing performed by: [facility], [facility], [address] [place] [address] Lymphocyte pct 4.6 % CERNER BJWCH Comment: Interpretive Data Percent cell count reference ranges are not reported, since discordance with absolute values may lead to misinterpretation of CBC data. Current Interpretive Data was last revised on 2017. Testing performed by: [facility], [facility], [address] [place] [address] Monocyte pct 5.5 % CERNER BJWCH Comment: Interpretive Data Percent cell count reference ranges are not reported, since discordance with absolute values may lead to misinterpretation of CBC data. Current Interpretive Data was last revised on 2017. Testing performed by: [facility], [facility], [address] [place] [address] Eosinophil pct 0.1 % CERNER BJWCH Comment: Interpretive Data Percent cell count reference ranges are not reported, since discordance with absolute values may lead to misinterpretation of CBC data. Current Interpretive Data was last revised on 2017. Testing performed by: [facility], [facility], [address] [place] [address] Basophil pct 0.2 % CERNER BJWCH Comment: Interpretive Data Percent cell count reference ranges are not reported, since discordance with absolute values may lead to misinterpretation of CBC data. Current Interpretive Data was last revised on 2017. Testing performed by: [facility], [facility], [address] [place] [address] Blood 07/14/2025 7:48 AM CDT 07/14/2025 7:50 AM CDT Junaid Cifuentes MD PhD LAB BLOOD ORDERABLES Final Result [facility] [address] [facility] Department [place] [address] * (ABNORMAL) CBC with auto differential (07/14/2025 7:48 AM CDT) WBC 13.80(H) 3.80 - 9.90 K/cumm Comment:Testing performed by : [facility] 2, [address] [place] [address] Hgb 11.1(L) 13.0 - 17.5 g/dL GORAN YOUSSEFW Comment:Testing performed by : [place] [address], [address] [place] [address] Hct 34.8(L) 38.9 - 50.3 % GORAN RASHEED Comment:Testing performed by : [facility] 2, [address] [place] [address] Plt 255 150 - 400 K/cumm [facility] Comment:Testing performed by : [place] [address], [address] [place] [address] MPV 10.0 9.1 - 12.3 fL GORAN YOUSSEFW Comment:Testing performed by : [facility] 2, [address] [place] [address] RBC 3.81(L) 4.30 - 5.80 M/cumm GORAN RASHEEDCH Comment:Testing performed by : [facility] 2, [address] [place] [address] MCV 91.3 81.3 - 96.4 fL CERNICHOLE BJWCH Comment:Testing performed by : [facility], [facility], [address] [place] [address] MCH 29.1 27.1 - 33.3 pg GORAN HELM Comment:Testing performed by : [facility], [facility], [address] [place] [address] MCHC 31.9(L) 32.3 - 35.7 g/dL GORAN HELM Comment:Testing performed by : [facility], [facility], [address] [place] [address] RDW CV 14.6 11.1 - 14.9 % GORAN HELM Comment:Testing performed by : [facility] 2, [address] [place] [address] RDW SD 48.0 35.7 - 48.1 fL GORAN HELM Comment:Testing performed by : [facility], [facility], [address] [place] [address] ANC Prelim 12.29(H) 1.50 - 6.50 K/cumm GORAN HELM Comment: Interpretive Data The rapid ANC is a preliminary automated count and may vary from the final ANC (Neut Abs) reported in the WBC differential that follows. Current interpretive data was last revised 2024. Testing performed by: [facility], [facility], [address] [place] [address] Blood 07/14/2025 7:48 AM CDT 07/14/2025 7:50 AM CDT us Junaid Cifuentes MD PhD LAB BLOOD ORDERABLES Final Result [facility] [address] [facility] [employer] [place], [place] [id number] * (ABNORMAL) PSA diagnostic (07/14/2025 7:48 AM [...] data last revised 22. Testing performed by: [facility], [address] [place] [address] Blood 07/14/2025 7:48 AM CDT 07/14/2025 8:19 AM CDT Junaid Cifuentes MD PhD LAB BLOOD ORDERABLES Final Result [facility] [address] Department [place] [address] * (ABNORMAL) Comprehensive metabolic panel (07/14/2025 7:48 AM CDT) Sodium 143 135 - 145 mmol/L Comment:Testing performed by : [facility], [address] [place], [place] [address] Potassium, pl 4.3 3.3 - 4.9 mmol/L CERNICHOLE BJWCH Comment:Testing performed by : [facility], [address], [place] [address] Chloride 106 97 - 110 mmol/L CERNICHOLE BJWCH Comment:Testing performed by : [facility], [address] [place] [address] CO2 27 22 - 32 mmol/L CERNICHOLE BJWCH Comment:Testing performed by : [facility], [address] [place] [address] Anion gap 10 2 - 15 mmol/L GORAN BJWCH Comment:Testing performed by : [facility], [address] [place] [address] BUN 27(H) 6 - 25 mg/dL CERNICHOLE BJWCH Comment:Testing performed by : [facility], [address], [place] [address] Creatinine 0.71(L) 0.80 - 1.30 mg/dL CERNER BJWCH Comment:Testing performed by : [facility], [address], [place] [address] Glucose 125 70 - 199 mg/dL CERNER [...] was last revised 2022. Testing performed by: [facility], [address], [place] [address] Calcium 9.5 8.5 - 10.3 mg/dL CERNER BJWCH Comment:Testing performed by : [facility], [address], [place] [address] Bilirubin, total 0.2 0.1 - 1.2 mg/dL CERNER BJWCH Comment:Testing performed by : [facility], [address], [place] [address] Protein, pl 6.1(L) 6.5 - 8.5 g/dL CERNER BJWCH Comment:Testing performed by : [facility], [address], [place] [address] Albumin 3.8 3.5 - 5.0 g/dL CERNER BJWCH Comment:Testing performed by : [facility], [address], [place] [address] Alk phos 78 40 - 130 Units/L CERNER BJWCH Comment:Testing performed by : [facility], [address], [place] [address] ALT 14 7 - 55 Units/L CERNER BJWCH Comment:Testing performed by : [facility], [address] [place] [address] AST 16 10 - 50 Units/L GORAN HELM Comment:Testing performed by : [facility], [address] [place] [address] Blood 07/14/2025 7:48 AM CDT 07/14/2025 8:19 AM CDT Junaid Cifuentes MD PhD LAB BLOOD ORDERABLES Final Result Performing Organization Address [facility] Co de Phone Number [facility] [address] [address] Department [place] [address] * eGFR (06/23/2025 8:10 AM CDT) eGFR [...] was last reviewed 2021. Testing performed by: [facility], [address] [place] [address] Blood 06/23/2025 8:10 AM CDT 06/23/2025 8:44 AM CDT us Junaid Cifuentes MD PhD LAB BLOOD ORDERABLES Final Result Performing Organization Address City/[facility]/ZIP Co de Phone Number [facility] [address] Department [place] [address] * (ABNORMAL) Differential, auto (06/23/2025 8:10 AM CDT) Neutrophil abs 7.77(H) 1.50 - 6.50 K/cumm Comment:Testing performed by : [place] [address], [address] [place] [address] Imm gran abs 0.05 0.00 - 0.10 K/cumm CERNER BJWCH Comment:Testing performed by : [place] [address], [address] [place] [address] Lymphocyte abs 0.51(L) 0.80 - 3.30 K/cumm CERNER BJWCH Comment:Testing performed by : [place] [address], [address] [place] [address] Monocyte abs 0.45 0.20 - 0.80 K/cumm CERNER BJWCH Comment:Testing performed by : [place] [address], [address] [place] [address] Eosinophil abs 0.01 0.00 - 0.50 K/cumm CERNER BJWCH Comment:Testing performed by : [facility] 2, [address] [place] [address] Basophil abs 0.02 0.00 - 0.10 K/cumm CERNER BJWCH Comment:Testing performed by : [place] [address], [address] [place] [address] Neutrophil pct 88.2 % CERNER BJWCH Comment: Interpretive Data Percent cell count reference ranges are not reported, since discordance with absolute values may lead to misinterpretation of CBC data. Current Interpretive Data was last revised on 2017. Testing performed by: [facility] 2, [address] [place] [address] Imm gran pct 0.6 % CERNER BJWCH Comment: Interpretive Data Percent cell count reference ranges are not reported, since discordance with absolute values may lead to misinterpretation of CBC data. Current Interpretive Data was last revised on 2017. Testing performed by: [facility], [facility], [address] [place] [address] Lymphocyte pct 5.8 % CERNICHOLE HELM Comment: Interpretive Data Percent cell count reference ranges are not reported, since discordance with absolute values may lead to misinterpretation of CBC data. Current Interpretive Data was last revised on 2017. Testing performed by: [facility], [facility], [address] [place] [address] Monocyte pct 5.1 % CERNICHOLE HELM Comment: Interpretive Data Percent cell count reference ranges are not reported, since discordance with absolute values may lead to misinterpretation of CBC data. Current Interpretive Data was last revised on 2017. Testing performed by: [facility], [facility], [address] [place] [address] Eosinophil pct 0.1 % CERNICHOLE YOUSSEFESTEBAN Comment: Interpretive Data Percent cell count reference ranges are not reported, since discordance with absolute values may lead to misinterpretation of CBC data. Current Interpretive Data was last revised on 2017. Testing performed by: [facility], [facility], [address] [place] [address] Basophil pct 0.2 % GORAN HELM Comment: Interpretive Data Percent cell count reference ranges are not reported, since discordance with absolute values may lead to misinterpretation of CBC data. Current Interpretive Data was last revised on 2017. Testing performed by: [facility], [facility], [address] [place] [address] Blood 06/23/2025 8:10 AM CDT 06/23/2025 8:15 AM CDT us Junaid Cifuentes MD PhD LAB BLOOD ORDERABLES Final Result [facility] [address] [facility] [place] [address] * Iron profile w/ IBC (06/23/2025 8:10 AM CDT) [facility] Iron 68 50 - 150 mcg/dL Comment:Testing performed by : [facility], [address] [place] [address]., [address] TIBC 251 250 - 400 mcg/dL GORAN HELM Comment:Testing performed by : [facility], [address] [place] [address]., [address] Transferrin saturation 27 20 - 50 % GORAN HELM Comment:Testing performed by : [facility], [address] [place] [address]., [address] Blood 06/23/2025 8:10 AM CDT 06/23/2025 10:04 AM CDT Gladis Savage METALSMITH APPRENTICE LAB BLOOD ORDERABLES Final Result Performing Organization Address City/State/[facility] Co de Phone Number GORAN HELM [address] [facility] Department [place] [address] * (ABNORMAL) CBC with auto differential (06/23/2025 8:10 AM CDT) [facility] WBC 8.81 3.80 - 9.90 K/cumm Comment:Testing performed by : [facility] 2, [address] [place] [address] Hgb 11.7(L) 13.0 - 17.5 g/dL GORAN HELM Comment:Testing performed by : [facility] 2, [address] [place] [address] Hct 36.7(L) 38.9 - 50.3 % GORAN HELM Comment:Testing performed by : [facility], [facility], [address] [place] [address] Plt 298 150 - 400 K/cumm GORAN HELM Comment:Testing performed by : [facility] 2, [address] [place] [address] MPV 9.8 9.1 - 12.3 fL CERNER BJWCH Comment:Testing performed by : [place] [address], [address] [place] [address] RBC 4.10(L) 4.30 - 5.80 M/cumm CERNER BJWCH Comment:Testing performed by : [place] [address] [place] [address] MCV 89.5 81.3 - 96.4 fL CERNER BJWCH Comment:Testing performed by : [place] [address] [place] [address] MCH 28.5 27.1 - 33.3 pg CERNER BJWCH Comment:Testing performed by : [place] [address] [place] [address] MCHC 31.9(L) 32.3 - 35.7 g/dL CERNER BJWCH Comment:Testing performed by : [place] [address] [place] [address] RDW CV 13.8 11.1 - 14.9 % CERNER BJWCH Comment:Testing performed by : [address] [place] [address] RDW SD 45.0 35.7 - 48.1 fL CERNER BJWCH Comment:Testing performed by : [place] [address] [place] [address] ANC Prelim 7.77(H) 1.50 - 6.50 K/cumm CERNER BJWCH Comment: Interpretive Data The rapid ANC is a preliminary automated count and may vary from the final ANC (Neut Abs) reported in the WBC differential that follows. Current interpretive data was last revised 2024. Testing performed by: [place] [address] [place] [address] Blood 06/23/2025 8:10 AM CDT 06/23/2025 8:15 AM CDT Junaid Cifuentes MD PhD LAB BLOOD ORDERABLES Final Result Performing Organization Address City/[facility]/ZIP Co de Phone Number [facility] [address] [facility]. [facility] [place] [address] * (ABNORMAL) PSA diagnostic (06/23/2025 8:10 AM [...] data last revised 22. Testing performed by: [facility], [address] [facility], [place] [address] Blood 06/23/2025 8:10 AM CDT 06/23/2025 8:44 AM CDT Gladis Savage NP LAB BLOOD ORDERABLES Final Result Performing Organization Address [facility] de Phone Number GORAN YOUSSEFCH [address] [facility]. [facility] [place] [address] * Ferritin (06/23/2025 8:10 AM CDT) Ferritin 239 30 - 400 ng/mL Comment:Testing performed by : [facility], [facility] [facility], [place]., [address] Blood 06/23/2025 8:10 AM CDT 06/23/2025 10:04 AM CDT Gladis Savage METALSMITH APPRENTICE LAB BLOOD ORDERABLES Final Result Performing Organization Address City/[facility] Co de Phone Number [facility] [address] Department [place] [address] * (ABNORMAL) Comprehensive metabolic panel (06/23/2025 8:10 AM CDT) Sodium 142 135 - 145 mmol/L Comment:Testing performed by : [facility] [facility], [address], [place] [address] Potassium, pl 4.2 3.3 - 4.9 mmol/L CERNER BJWCH Comment:Testing performed by : [facility], [address], [place] [address] Chloride 104 97 - 110 mmol/L CERNER BJWCH Comment:Testing performed by : [facility], [address], [place] [address] CO2 30 22 - 32 mmol/L CERNER BJWCH Comment:Testing performed by : [facility], [address], [place] [address] Anion gap 8 2 - 15 mmol/L CERNER BJWCH Comment:Testing performed by : [facility], [address], [place] [address] BUN 23 6 - 25 mg/dL CERNER BJWCH Comment:Testing performed by : [facility], [address], [place] [address] Creatinine 0.71(L) 0.80 - 1.30 mg/dL CERNER BJWCH Comment:Testing performed by : [facility], [address], [place] [address] Glucose 124 70 - 199 mg/dL CERNER [...] was last revised 2022. Testing performed by: [facility], [address], [place] [address] Calcium 9.8 8.5 - 10.3 mg/dL CERNER BJWCH Comment:Testing performed by : [facility], [address], [place] [address] Bilirubin, total 0.3 0.1 - 1.2 mg/dL CERNER BJWCH Comment:Testing performed by : [facility], [address], [place] [address] Protein, pl 6.5 6.5 - 8.5 g/dL CERNER BJWCH Comment:Testing performed by : [facility], [address], [place] [address] Albumin 4.1 3.5 - 5.0 g/dL CERNER BJWCH Comment:Testing performed by : [facility], [address], [place] [address] Alk phos 68 40 - 130 Units/L CERNER BJWCH Comment:Testing performed by : [facility], [address], [place] [address] ALT 12 7 - 55 Units/L CERNER BJWCH Comment:Testing performed by : [facility], [address], [place] [address] AST 18 10 - 50 Units/L CERNER BJWCH Comment:Testing performed by : [facility], [address], [place] [address] Blood 06/23/2025 8:10 AM CDT 06/23/2025 8:44 AM CDT us Junaid Cifuentes MD PhD LAB BLOOD ORDERABLES Final Result [facility] [address] Department [place] [address] * eGFR (06/16/2025 8:12 AM CDT) eGFR [...] was last reviewed 2021. Testing performed by: [facility], [address] [place] [address] Blood 06/16/2025 8:12 AM CDT 06/16/2025 8:46 AM CDT us Junaid Cifuentes MD PhD LAB BLOOD ORDERABLES Final Result [facility] [address] Department [place] [address] * (ABNORMAL) Differential, auto (06/16/2025 8:12 AM CDT) Neutrophil abs 10.94(H) 1.50 - 6.50 K/cumm Comment:Testing performed by : [facility], [facility], [address] [place] [address] Imm gran abs 0.10 0.00 - 0.10 K/cumm GORAN HELM Comment:Testing performed by : [facility], [facility], [address] [place] [address] Lymphocyte abs 0.67(L) 0.80 - 3.30 K/cumm GORAN HELM Comment:Testing performed by : [facility], [facility], [address], [place] [address] Monocyte abs 0.87(H) 0.20 - 0.80 K/cumm CERNER BJWCH Comment:Testing performed by : [facility], [facility], [address] [place] [address] Eosinophil abs 0.00 0.00 - 0.50 K/cumm CERNER BJWCH Comment:Testing performed by : [facility], [facility], [address], [place] [address] Basophil abs 0.02 0.00 - 0.10 K/cumm CERNER BJWCH Comment:Testing performed by : [facility], [facility], [address] [place] [address] Neutrophil pct 86.8 % CERNER BJWCH Comment: Interpretive Data Percent cell count reference ranges are not reported, since discordance with absolute values may lead to misinterpretation of CBC data. Current Interpretive Data was last revised on 2017. Testing performed by: [facility], [facility], [address] [place] [address] Imm gran pct 0.8 % CERNER BJWCH Comment: Interpretive Data Percent cell count reference ranges are not reported, since discordance with absolute values may lead to misinterpretation of CBC data. Current Interpretive Data was last revised on 2017. Testing performed by: [facility], [facility], [address], [place] [address] Lymphocyte pct 5.3 % CERNER BJWCH Comment: Interpretive Data Percent cell count reference ranges are not reported, since discordance with absolute values may lead to misinterpretation of CBC data. Current Interpretive Data was last revised on 2017. Testing performed by: [facility], [facility], [address] [place] [address] Monocyte pct 6.9 % CERNER BJWCH Comment: Interpretive Data Percent cell count reference ranges are not reported, since discordance with absolute values may lead to misinterpretation of CBC data. Current Interpretive Data was last revised on 2017. Testing performed by: [facility], [facility], [address] [place] [address] Eosinophil pct 0.0 % GORAN HELM Comment: Interpretive Data Percent cell count reference ranges are not reported, since discordance with absolute values may lead to misinterpretation of CBC data. Current Interpretive Data was last revised on 2017. Testing performed by: [facility] 2, [address] [place] [address] Basophil pct 0.2 % GORAN HELM Comment: Interpretive Data Percent cell count reference ranges are not reported, since discordance with absolute values may lead to misinterpretation of CBC data. Current Interpretive Data was last revised on 2017. Testing performed by: [facility] 2, [address] [place] [address] Blood 06/16/2025 8:1 2 AM CDT 06/16/2025 8:20 AM CDT Junaid Cifuentes MD PhD LAB BLOOD ORDERABLES Final Result [facility] [address] [facility] Department [place] [address] * (ABNORMAL) CBC with auto differential (06/16/2025 8:12 AM CDT) WBC 12.60(H) 3.80 - 9.90 K/cumm Comment:Testing performed by : [facility], [facility], [address] [place] [address] Hgb 10.8(L) 13.0 - 17.5 g/dL GORAN HELM Comment:Testing performed by : [facility] 2, [address] [place] [address] Hct 33.7(L) 38.9 - 50.3 % GORAN HELM Comment:Testing performed by : [facility] 2, [address] [place] [address] Plt 299 150 - 400 K/cumm CERNER BJWCH Comment:Testing performed by : [place] [address], [address] [place] [address] MPV 10.3 9.1 - 12.3 fL CERNER BJWCH Comment:Testing performed by : [place] [address], [address] [place] [address] RBC 3.73(L) 4.30 - 5.80 M/cumm CERNER BJWCH Comment:Testing performed by : [place] [address], [address], [place] [address] MCV 90.3 81.3 - 96.4 fL CERNER BJWCH Comment:Testing performed by : [place] [address], [address], [place] [address] MCH 29.0 27.1 - 33.3 pg CERNICHOLE BJWCH Comment:Testing performed by : [place] [address], [address], [place] [address] MCHC 32.0(L) 32.3 - 35.7 g/dL CERNER BJWCH Comment:Testing performed by : [place] [address], [address] [place] [address] RDW CV 13.2 11.1 - 14.9 % CERNICHOLE BJWCH Comment:Testing performed by : [address] [place] [address] RDW SD 43.7 35.7 - 48.1 fL CERNER BJWCH Comment:Testing performed by : [place] [address], [address], [place] [address] ANC Prelim 10.94(H) 1.50 - 6.50 K/cumm CERNER BJWCH Comment: Interpretive Data The rapid ANC is a preliminary automated count and may vary from the final ANC (Neut Abs) reported in the WBC differential that follows. Current interpretive data was last revised 2024. Testing performed by: [place] [address], [address] [place] [address] Blood 06/16/2025 8:12 AM CDT 06/16/2025 8:20 AM CDT Junaid Cifuentes MD PhD LAB BLOOD ORDERABLES Final Result Performing Organization Address [facility] Co de Phone Number GORAN YOUSSEFCH [address] [facility]. [place] [address] * (ABNORMAL) PSA diagnostic (06/16/2025 8:12 AM [...] data last revised 22. Testing performed by: [facility], [address] [place] [address] Blood 06/16/2025 8:12 AM CDT 06/16/2025 8:46 AM CDT Junaid Cifuentes MD PhD LAB BLOOD ORDERABLES Final Result Performing Organization Address [facility] Co de Phone Number GORAN YOUSSEFW[facility] [address] [place] [address] * (ABNORMAL) Comprehensive metabolic panel (06/16/2025 8:12 AM CDT) Sodium 141 135 - 145 mmol/L Comment:Testing performed by : [facility], [address] [place] [address] Potassium, pl 4.2 3.3 - 4.9 mmol/L GORAN HELM Comment:Testing performed by : [facility], [address], [place] [address] Chloride 103 97 - 110 mmol/L CERNER BJWCH Comment:Testing performed by : [facility], [address], [place] [address] CO2 29 22 - 32 mmol/L CERNER BJWCH Comment:Testing performed by : [facility], [address], [place] [address] Anion gap 9 2 - 15 mmol/L CERNER BJWCH Comment:Testing performed by : [facility], [address], [place] [address] BUN 22 6 - 25 mg/dL CERNER BJWCH Comment:Testing performed by : [facility], [address], [place] [address] Creatinine 0.72(L) 0.80 - 1.30 mg/dL CERNER BJWCH Comment:Testing performed by : [facility], [address], [place] [address] Glucose 133 70 - 199 mg/dL CERNER [...] was last revised 2022. Testing performed by: [facility], [address], [place] [address] Calcium 9.2 8.5 - 10.3 mg/dL CERNER BJWCH Comment:Testing performed by : [facility], [address], [place] [address] Bilirubin, total 0.2 0.1 - 1.2 mg/dL CERNER BJWCH Comment:Testing performed by : [facility], [address], [place] [address] Protein, pl 6.0(L) 6.5 - 8.5 g/dL CERNER BJWCH Comment:Testing performed by : [facility], [address], [place] [address] Albumin 3.8 3.5 - 5.0 g/dL CERNER BJWCH Comment:Testing performed by : [facility], [address], [place] [address] Alk phos 67 40 - 130 Units/L CERNER BJWCH Comment:Testing performed by : [facility], [address], [place] [address] ALT 12 7 - 55 Units/L CERNER BJWCH Comment:Testing performed by : [facility], [address], [place] [address] AST 17 10 - 50 Units/L CERNER BJWCH Comment:Testing performed by : [facility], [address], [place] [address] Blood 06/16/2025 8:12 AM CDT 06/16/2025 8:46 AM CDT Junaid Cifuentes MD PhD LAB BLOOD ORDERABLES Final Result [facility] [address] Department [place] [address] * SCAN - RADIOLOGY/IMAGING (06/14/2025) Anatomical Region [...] was last reviewed 2021. Testing performed by: [facility], [address] [place] [address] Blood 05/26/2025 7:55 AM CDT 05/26/2025 8:23 AM CDT us Junaid Cifuentes MD PhD LAB BLOOD ORDERABLES Final Result [facility] [address] Department of Laboratories [place] [id number] * (ABNORMAL) Differential, auto (05/26/2025 7:55 AM CDT) Neutrophil abs 7.67(H) 1.50 - 6.50 K/cumm Comment:Testing performed by : [facility], [facility], [address] [place] [address] Imm gran abs 0.04 0.00 - 0.10 K/cumm GORAN HELM Comment:Testing performed by : [facility] 2, [address] [place] [address] Lymphocyte abs 0.99 0.80 - 3.30 K/cumm GORAN HELM Comment:Testing performed by : [facility] 2, [address] [place] [address] Monocyte abs 0.58 0.20 - 0.80 K/cumm GORAN HELM Comment:Testing performed by : [facility] 2, [address] [place] [address] Eosinophil abs 0.00 0.00 - 0.50 K/cumm CERNER BJWCH Comment:Testing performed by : [facility], [facility], [address] [place] [address] Basophil abs 0.02 0.00 - 0.10 K/cumm CERNER BJWCH Comment:Testing performed by : [facility], [facility], [address] [place] [address] Neutrophil pct 82.6 % CERNER BJWCH Comment: Interpretive Data Percent cell count reference ranges are not reported, since discordance with absolute values may lead to misinterpretation of CBC data. Current Interpretive Data was last revised on 2017. Testing performed by: [facility], [facility], [address] [place] [address] Imm gran pct 0.4 % CERNER BJWCH Comment: Interpretive Data Percent cell count reference ranges are not reported, since discordance with absolute values may lead to misinterpretation of CBC data. Current Interpretive Data was last revised on 2017. Testing performed by: [facility], [facility], [address] [place] [address] Lymphocyte pct 10.6 % CERNER BJWCH Comment: Interpretive Data Percent cell count reference ranges are not reported, since discordance with absolute values may lead to misinterpretation of CBC data. Current Interpretive Data was last revised on 2017. Testing performed by: [facility] 2, [address] [place] [address] Monocyte pct 6.2 % CERNER BJWCH Comment: Interpretive Data Percent cell count reference ranges are not reported, since discordance with absolute values may lead to misinterpretation of CBC data. Current Interpretive Data was last revised on 2017. Testing performed by: [facility], [facility], [address] [place] [address] Eosinophil pct 0.0 % CERNER BJWCH Comment: Interpretive Data Percent cell count reference ranges are not reported, since discordance with absolute values may lead to misinterpretation of CBC data. Current Interpretive Data was last revised on 2017. Testing performed by: [facility], [address] [place] [address] Basophil pct 0.2 % GORAN HELM Comment: Interpretive Data Percent cell count reference ranges are not reported, since discordance with absolute values may lead to misinterpretation of CBC data. Current Interpretive Data was last revised on 2017. Testing performed by: [facility] 2, [address] [place] [address] Blood 05/26/2025 7:55 AM CDT 05/26/2025 7:56 AM CDT us Junaid Cifuentes MD PhD LAB BLOOD ORDERABLES Final Result GORAN HELM [address] [facility]. Department [place] [address] * (ABNORMAL) CBC with auto differential (05/26/2025 7:55 AM CDT) WBC 9.30 3.80 - 9.90 K/cumm Comment:Testing performed by : [facility] 2, [address] [place] [address] Hgb 14.1 13.0 - 17.5 g/dL GORAN HELM Comment:Testing performed by : [address] [place] [address] Hct 43.1 38.9 - 50.3 % GORAN HELM Comment:Testing performed by : [place] [address], [address] [place] [address] Plt 211 150 - 400 K/cumm GORAN HELM Comment:Testing performed by : [place] [address], [address] [place] [address] MPV 10.1 9.1 - 12.3 fL GORAN HELM Comment:Testing performed by : [place] [address], [address] [place] [address] RBC 4.81 4.30 - 5.80 M/cumm [facility] Comment:Testing performed by : [facility], [facility], [address] [place] [address] MCV 89.6 81.3 - 96.4 fL [facility] Comment:Testing performed by : [facility], [facility], [address] [place] [address] MCH 29.3 27.1 - 33.3 pg [facility] Comment:Testing performed by : [facility], [facility], [address] [place] [address] MCHC 32.7 32.3 - 35.7 g/dL [facility] Comment:Testing performed by : [facility], [facility], [address] [place] [address] RDW CV 12.7 11.1 - 14.9 % [facility] Comment:Testing performed by : [facility] 2, [address] [place] [address] RDW SD 41.5 35.7 - 48.1 fL [facility] Comment:Testing performed by : [facility], [facility], [address] [place] [address] ANC Prelim 7.67(H) 1.50 - 6.50 K/cumm [facility] Comment: Interpretive Data The rapid ANC is a preliminary automated count and may vary from the final ANC (Neut Abs) reported in the WBC differential that follows. Current interpretive data was last revised 2024. Testing performed by: [facility], [facility], [address] [place] [address] Blood 05/26/2025 7:55 AM CDT 05/26/2025 7:56 AM CDT us Junaid Cifuentes MD PhD LAB BLOOD ORDERABLES Final Result [facility] [address] [facility] [employer] [place], [place] [id number] * 1,25 Dihydroxycholecalciferol (05/26/2025 7:55 AM CDT) Pathologist [facility] 1-25-di-OH Vit D 35 18 - 64 pg/mL [facility] Comment: ADDITIONAL INFORMATION This test was developed and its performance characteristics determined by [facility] in a manner consistent with CLIA requirements. This test has not been cleared or approved by the U.S. Food and Drug Administration. Test Performed by: [facility] - [facility] [address] [place] [address] Stone Decorator: Angelique Gomez Ph.D.; CLIA# [id number] Testing performed by: [facility], [address] [place] [address] Blood 05/26/2025 7:55 AM CDT 05/26/2025 10:06 AM CDT us Junaid Cifuentes MD PhD LAB BLOOD ORDERABLES Final Result [facility] [address] Department [place] [address] [facility] * (ABNORMAL) PSA diagnostic (05/26/2025 7:55 AM CDT) Pathologist [facility] PSA-Total 47.94(H) <=6.20 ng/mL Comment: Interpretive Data [...] data last revised 22. Testing performed by: [facility], [address], [place] [address] Blood 05/26/2025 7:55 AM CDT 05/26/2025 8:23 AM CDT us Junaid Cifuentes MD PhD LAB BLOOD ORDERABLES Final Result [facility] [address] Department [place] [address] * (ABNORMAL) Comprehensive metabolic panel (05/26/2025 7:55 AM CDT) Sodium 141 135 - 145 mmol/L Comment:Testing performed by : [facility], [address], [place] [address] Potassium, pl 4.3 3.3 - 4.9 mmol/L CERNICHOLE BJWCH Comment:Testing performed by : [facility], [address], [place] [address] Chloride 101 97 - 110 mmol/L CERNICHOLE BJWCH Comment:Testing performed by : [facility], [address], [place] [address] CO2 30 22 - 32 mmol/L CERNICHOLE BJWCH Comment:Testing performed by : [facility], [address], [place] [address] Anion gap 10 2 - 15 mmol/L CERNICHOLE BJWCH Comment:Testing performed by : [facility], [address], [place] [address] BUN 22 6 - 25 mg/dL CERNICHOLE BJWCH Comment:Testing performed by : [facility], [address], [place] [address] Creatinine 0.90 0.80 - 1.30 mg/dL CERNER BJWCH Comment:Testing performed by : [facility], [address], [place] [address] Glucose 152 70 - 199 mg/dL CERNER [...] was last revised 2022. Testing performed by: [facility], [address], [place] [address] Calcium 9.6 8.5 - 10.3 mg/dL CERNER BJWCH Comment:Testing performed by : [facility], [address], [place] [address] Bilirubin, total 0.3 0.1 - 1.2 mg/dL CERNER BJWCH Comment:Testing performed by : [facility], [address], [place] [address] Protein, pl 6.4(L) 6.5 - 8.5 g/dL CERNER BJWCH Comment:Testing performed by : [facility], [address], [place] [address] Albumin 4.4 3.5 - 5.0 g/dL CERNER BJWCH Comment:Testing performed by : [facility], [address], [place] [address] Alk phos 76 40 - 130 Units/L CERNER BJWCH Comment:Testing performed by : [facility], [address], [place] [address] ALT 19 7 - 55 Units/L CERNER BJWCH Comment:Testing performed by : [facility], [address], [place] [address] AST 18 10 - 50 Units/L CERNER BJWCH Comment:Testing performed by : [facility], [address], [place] [address] Blood 05/26/2025 7:55 AM CDT 05/26/2025 8:23 AM CDT Junaid Cifuentes MD PhD LAB BLOOD ORDERABLES Edited Result - Final GORAN HELM [address] Department of Laboratories [place], [place] [id number] * (ABNORMAL) Urinalysis reflex to microscopic (05/05/2025 8:30 AM CDT) Color, ur Straw Yellow Comment:Testing performed by : [facility], [address], [place] [address] Clarity, ur Clear Clear CERNICHOLE BJWCH Comment:Testing performed by : [facility], [address], [place] [address] Specific gravity, ur 1.022 1.003 - 1.030 GORAN BJWCH Comment:Testing performed by : [facility], [address], [place] [address] pH, urine 6.0 GORAN BJWCH Comment: Interpretive Data U rine pH is affected by diet, medications, systemic acid-base disturbances, and renal tubular function. pH may affect urinary stone formation. For example, urine pH below 6.0 may help reduce the tendency for calcium phosphate stones and pH greater than 6.0 may reduce the tendency for uric acid stone formation. Source: [facility] [employer] Current Interpretive Data was last revised on 2017 Testing performed by: [facility], [address], [place] [address] Protein, ur ql 1+(A) Negative CERNER BJWCH Comment:Testing performed by : [facility], [address], [place] [address] Glucose, ur ql Negative Negative CERNER BJWCH Comment:Testing performed by : [facility], [address], [place] [address] Ketones, ur Negative Negative CERNER BJWCH Comment:Testing performed by : [facility], [address], [place] [address] Bilirubin, ur Negative Negative CERNER BJWCH Comment:Testing performed by : [facility], [address], [place] [address] Blood, ur 2+(A) Negative CERNER BJWCH Comment:Testing performed by : [facility], [address], [place] [address] Urobilinogen, ur <2.0 <2.0 mg/dL GORAN HELM Comment:Testing performed by : [facility], [address], [place] [address] Nitrite, ur Negative Negative GORAN HELM Comment:Testing performed by : [facility], [address], [place] [address] Leukocyte esterase, ur Negative Negative GORAN HELM Comment:Testing performed by : [facility], [address], [place] [address] UA reflex comment Reflex to microscopic UA will be performed. GORAN HELM Comment:Testing performed by : [facility], [address], [place] [address] Urine 05/05/2025 8:30 AM CDT 05/05/2025 9:20 AM CDT Junaid Cifuentes MD PhD LAB URINE ORDERABLES Final Result GORAN HELM [id number] [address] Department [place] [address] * (ABNORMAL) Urinalysis, microscopic only (05/05/2025 8:30 AM CDT) WBC, ur 0-5 0 - 5 /HPF Comment:Testing performed by : [facility], [address], [place] [address] RBC, ur 6-10(A) 0 - 2 /HPF GORAN HELM Comment:Testing performed by : [facility], [address], [place] [address] Mucous, ur Present(A) GORAN HELM Comment:Testing performed by : [facility], [address], [place] [address] Urine 05/05/2025 8:30 AM CDT 05/05/2025 9:20 AM CDT Junaid Cifuentes MD PhD LAB URINE ORDERABLES Final Result Performing Organization Address [facility] Co de Phone Number GORAN HELM [address] [facility]. Department [employer] [place] [address] * eGFR (05/05/2025 8:28 AM CDT) eGFR [...] was last reviewed 2021. Testing performed by: [facility], [address] [place] [address], [place] [address] Blood 05/05/2025 8:28 AM CDT 05/05/2025 8:49 AM CDT Junaid Cifuentes MD PhD LAB BLOOD ORDERABLES Final Result Performing Organization Address City/[facility] Co de Phone Number GORAN YOUSSEFWCH [address] [address] [facility]. Department [employer] [place] [address] * (ABNORMAL) Differential, auto (05/05/2025 8:28 AM CDT) Neutrophil abs 5.58 1.50 - 6.50 K/cumm Comment:Testing performed by : [facility], [address], [address] [place] [address] Imm gran abs 0.03 0.00 - 0.10 K/cumm CERNER BJWCH Comment:Testing performed by : [facility], [facility], [address] [place] [address] Lymphocyte abs 0.47(L) 0.80 - 3.30 K/cumm CERNER BJWCH Comment:Testing performed by : [facility], [facility], [address] [place] [address] Monocyte abs 0.38 0.20 - 0.80 K/cumm CERNER BJWCH Comment:Testing performed by : [facility], [facility], [address] [place] [address] Eosinophil abs 0.01 0.00 - 0.50 K/cumm CERNER BJWCH Comment:Testing performed by : [facility] 2, [address] [place] [address] Basophil abs 0.01 0.00 - 0.10 K/cumm CERNER BJWCH Comment:Testing performed by : [facility], [facility], [address] [place] [address] Neutrophil pct 85.9 % CERNER BJWCH Comment: Interpretive Data Percent cell count reference ranges are not reported, since discordance with absolute values may lead to misinterpretation of CBC data. Current Interpretive Data was last revised on 2017. Testing performed by: [facility], [facility], [address] [place] [address] Imm gran pct 0.5 % CERNER BJWCH Comment: Interpretive Data Percent cell count reference ranges are not reported, since discordance with absolute values may lead to misinterpretation of CBC data. Current Interpretive Data was last revised on 2017. Testing performed by: [facility], [facility], [address] [place] [address] Lymphocyte pct 7.3 % CERNER BJWCH Comment: Interpretive Data Percent cell count reference ranges are not reported, since discordance with absolute values may lead to misinterpretation of CBC data. Current Interpretive Data was last revised on 2017. Testing performed by: [facility], [facility], [address] [place] [address] Monocyte pct 5.9 % GORAN HELM Comment: Interpretive Data Percent cell count reference ranges are not reported, since discordance with absolute values may lead to misinterpretation of CBC data. Current Interpretive Data was last revised on 2017. Testing performed by: [facility], [facility], [address] [place] [address] Eosinophil pct 0.2 % GORAN HELM Comment: Interpretive Data Percent cell count reference ranges are not reported, since discordance with absolute values may lead to misinterpretation of CBC data. Current Interpretive Data was last revised on 2017. Testing performed by: [facility], [facility], [address] [place] [address] Basophil pct 0.2 % GORAN HELM Comment: Interpretive Data Percent cell count reference ranges are not reported, since discordance with absolute values may lead to misinterpretation of CBC data. Current Interpretive Data was last revised on 2017. Testing performed by: [facility], [facility], [address] [place] [address] Blood 05/05/2025 8:28 AM CDT 05/05/2025 8:34 AM CDT Junaid Cifuentes MD PhD LAB BLOOD ORDERABLES Final Result [facility] [address] [facility] Department [place] [address] * CBC with auto differential (05/05/2025 8:28 AM CDT) WBC 6.48 3.80 - 9.90 K/cumm Comment:Testing performed by : [facility], [facility], [address] [place] [address] Hgb 13.5 13.0 - 17.5 g/dL CERNER BJWCH Comment:Testing performed by : [facility], [facility], [address], [place] [address] Hct 40.5 38.9 - 50.3 % CERNER BJWCH Comment:Testing performed by : [facility] 2, [address], [place] [address] Plt 199 150 - 400 K/cumm CERNER BJWCH Comment:Testing performed by : [place] [address], [address], [place] [address] MPV 10.5 9.1 - 12.3 fL CERNER BJWCH Comment:Testing performed by : [place] [address], [address], [place] [address] RBC 4.61 4.30 - 5.80 M/cumm CERNER BJWCH Comment:Testing performed by : [place] [address], [address], [place] [address] MCV 87.9 81.3 - 96.4 fL CERNER BJWCH Comment:Testing performed by : [place] [address], [address], [place] [address] MCH 29.3 27.1 - 33.3 pg CERNER BJWCH Comment:Testing performed by : [place] [address], [address] [place] [address] MCHC 33.3 32.3 - 35.7 g/dL CERNER BJWCH Comment:Testing performed by : [place] [address], [address], [place] [address] RDW CV 12.5 11.1 - 14.9 % CERNER BJWCH Comment:Testing performed by : [place] [address], [address], [place] [address] RDW SD 40.3 35.7 - 48.1 fL CERNER BJWCH Comment:Testing performed by : [place] [address], [address], [place] [address] ANC Prelim 5.58 1.50 - 6.50 K/cumm GORAN HELM Comment: Interpretive Data The rapid ANC is a preliminary automated count and may vary from the final ANC (Neut Abs) reported in the WBC differential that follows. Current interpretive data was last revised 2024. Testing performed by: [facility], [address], [address], [place] [address] Blood 05/05/2025 8:28 AM CDT 05/05/2025 8:34 AM CDT Junaid Cifuentes MD PhD LAB BLOOD ORDERABLES Final Result Performing Organization Address City/[facility]/ZIP Co de Phone Number [facility] [address] [facility]. [facility] [place] [address] * Uric acid (05/05/2025 8:28 AM CDT) Uric acid 3.5 3.0 - 8.0 mg/dL Comment:Testing performed by : [facility], [address], [place] [address] Blood 05/05/2025 8:28 AM CDT 05/05/2025 8:49 AM CDT Junaid Cifuentes MD PhD LAB BLOOD ORDERABLES Final Result Performing Organization Address City/[facility] Co de Phone Number [facility] [address] [facility]. [facility] [place] [address] * Triglycerides (05/05/2025 8:28 AM CDT) Triglycerides [...] last revised on 2018. Testing performed by: [facility], [address] [place], [place] [address] [address] Blood 05/05/2025 8:28 AM CDT 05/05/2025 8:49 AM CDT Junaid Cifuentes MD PhD LAB BLOOD ORDERABLES Final Result Performing Organization Address City/[facility] Co de Phone Number GORAN [facility] [address] [facility]. [facility] [place] [address] * (ABNORMAL) PSA diagnostic (05/05/2025 8:28 AM CDT) Pathologist [facility] PSA-Total 61.58(H) <=6.20 ng/mL Comment: Interpretive Data [...] data last revised 22. Testing performed by: [facility], [address] [place] [address] [place] [address] Blood 05/05/2025 8:28 AM CDT 05/05/2025 8:49 AM CDT us Junaid Cifuentes MD PhD LAB BLOOD ORDERABLES Final Result Performing Organization Address City/[facility] Co de Phone Number GORAN BJWCH [address] [address]. [facility] [place] [address] * Phosphorus (05/05/2025 8:28 AM CDT) Pathologist [facility] Phosphorus, pl 3.3 2.3 - 4.5 mg/dL Comment:Testing performed by : [facility], [address] [place] [address] Blood 05/05/2025 8:28 AM CDT 05/05/2025 8:49 AM CDT Junaid Cifuentes MD PhD LAB BLOOD ORDERABLES Final Result Performing Organization Address City/[facility]/ZIP Co de Phone Number [facility] [address] [address] [facility] [place] [address] * Lactate dehydrogenase (LD) (05/05/2025 8:28 AM CDT) [facility] Lactate dehydrogenase (LDH) 154 100 - 250 Units/L Comment:Testing performed by : [facility], [address] [place] [address] [place] [address] Blood 05/05/2025 8:2 8 AM CDT 05/05/2025 8:49 AM CDT Junaid Cifuentes MD PhD LAB BLOOD ORDERABLES Final Result Performing Organization Address [facility] Co de Phone Number [facility] [address] [address]. [facility] [place] [address] * (ABNORMAL) Creatine kinase (CK), total (05/05/2025 8:28 AM CDT) [facility] CK 28(L) 40 - 300 Units/L Comment:Testing performed by : [facility], [address] [facility], [place] [address] Blood 05/05/2025 8:28 AM CDT 05/05/2025 8:49 AM CDT Junaid Cifuentes MD PhD LAB BLOOD ORDERABLES Final Result Performing Organization Address City/[facility] Co de Phone Number GORAN BJWCH [address] [address] [facility]. [facility] [place] [address] * (ABNORMAL) Comprehensive metabolic panel (05/05/2025 8:28 AM CDT) Sodium 141 135 - 145 mmol/L Comment:Testing performed by : [facility], [address], [place] [address] Potassium, pl 4.0 3.3 - 4.9 mmol/L CERNER BJWCH Comment:Testing performed by : [facility], [address], [place] [address] Chloride 102 97 - 110 mmol/L CERNER BJWCH Comment:Testing performed by : [facility], [address], [place] [address] CO2 28 22 - 32 mmol/L CERNER BJWCH Comment:Testing performed by : [facility], [address], [place] [address] Anion gap 11 2 - 15 mmol/L CERNER BJWCH Comment:Testing performed by : [facility], [address], [place] [address] BUN 18 6 - 25 mg/dL CERNER BJWCH Comment:Testing performed by : [facility], [address], [place] [address] Creatinine 0.70(L) 0.80 - 1.30 mg/dL CERNER BJWCH Comment:Testing performed by : [facility], [address], [place] [address] Glucose 142 70 - 199 mg/dL CERNER [...] was last revised 2022. Testing performed by: [facility], [address], [place] [address] Calcium 9.5 8.5 - 10.3 mg/dL CERNER BJWCH Comment:Testing performed by : [facility], [address], [place] [address] Bilirubin, total 0.3 0.1 - 1.2 mg/dL CERNER BJWCH Comment:Testing performed by : [facility], [address], [place] [address] Protein, pl 6.8 6.5 - 8.5 g/dL CERNER BJWCH Comment:Testing performed by : [facility], [address], [place] [address] Albumin 4.3 3.5 - 5.0 g/dL CERNER BJWCH Comment:Testing performed by : [facility], [address], [place] [address] Alk phos 74 40 - 130 Units/L CERNER BJWCH Comment:Testing performed by : [facility], [address], [place] [address] ALT 16 7 - 55 Units/L CERNER BJWCH Comment:Testing performed by : [facility], [address], [place] [address] AST 22 10 - 50 Units/L CERNER BJWCH Comment:Testing performed by : [facility], [address], [place] [address] Blood 05/05/2025 8:28 AM CDT 05/05/2025 8:49 AM CDT us Junaid Cifuentes MD PhD LAB BLOOD ORDERABLES Final Result [facility] [address] [place] [address] * IR Port Placement Chest > 5 [...] scheduled by calling [facility] - [phone] [facility] - [phone] Electronically signed by: Donal Carrillo PA-C Narrative [...] was obtained. Prior to beginning the procedure, Pioneer Protocol was used to confirm the patient's [...] was obtained. Prior to beginning the procedure, Pioneer Protocol was used to confirm the patient's [...] scheduled by calling [facility] - [phone] [facility] - [phone] Electronically signed by: Donal Carrillo PA-C Junaid Cifuentes MD PhD IMG IR PROCEDURES Fin al Result from Last 3 Months Insurance MEDICARE Member Subscriber Plan / Payer ( fective 2005-Present) Name:CollazoMayank Member ID:[id number] Relation to Subscriber:Self Name:Mayank Collazo Subscriber ID:[id number] Payer ID:[id number] Group ID:Not on file Type:MEDICARE TRADITIONAL Address: [address] [address] [facility] MEDICARE [employer] MEDICARE Member Subscriber Plan / Payer (Ef fective 2006-Present) Name:Mayank Collazo Member ID:[id number] Relation to Subscriber:Self Name:Mayank Collazo Subscriber ID:[id number] Payer ID:[id number] Group ID:Not on file Type:MEDICARE TRADITIONAL Address: [facility] [id number] [place] [phone] [employer] Care Teams Composition Teacher Relationship Specialty Start Date End Date Arvind Castellanos MD PCP - General 12/24/17 Patrick Perez MD [address] [address] Urology 07/27/21
[2025-07-22] MEDS: IBUPROFEN 600 MG TABLET PO (15:42)
--- OUTSIDE RECORDS SUMMARY | 2025-07-22 15:54 | XMS_ITS | Clinical Summary ---
Author Organization [facility] Address [address] [place] [address] Care Team Providers Care Security Assurance Specialist Name Role Phone Arvind Castellanos MD Primary Care Provider [phone] Allergies Active Allergy Reactions Criticality Noted Date [...] by mouth daily. Active vitamin D2, ergocalciferol, 63613 UNITS capsule Take 50,000 Units by mouth. 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
--- NOTE | 2025-07-22 16:05 | ED.FALL ---
HPI - Fall General Chief Complaint: Fall Stated Complaint: left hip pain-fall Source: patient and family History of Present Illness HPI Narrative: Was seen earlier today after he had a fall and diagnosed with some fractures bilateral wrist, and was told to to had a x-ray of the left hip but at that time patient declined but was told that if he is continuing to have discomfort in his left hip to return to the ER to have the left hip evaluated. Soon after he left the ER he thought better and of having an x-ray because he was continuing to have left hip pain discomfort. Has good range of motion just tender with movement and palpation. Onset (ago): hour(s) Fall from: standing Fall witnessed: yes, by family Place fall occurred: home Severity scale (1-10): 5 Quality: aching Associated symptoms (after fall): denies Related Data Home Medications ?Medication ?Instructions ?Recorded ?Confirmed ?Last Taken ?Type ergocalciferol (vitamin D2) 1,250 1,250 mcg PO DAILY 12/24/21 11/01/22 Unknown History mcg (50,000 unit) capsule hydrocodone 7.5 mg-acetaminophen 1 tablet PO Q4-6H PRN Pain 12/24/21 11/01/22 Unknown History 325 mg tablet leuprolide 3.75 mg intramuscular See Rx Instructions .Route .COMPLEX 12/24/21 11/01/22 Unknown History pantoprazole 40 mg tablet,delayed 40 mg PO BID 10/18/22 11/01/22 Unknown History release prochlorperazine maleate 10 mg 10 mg PO Q6H PRN Nausea 10/18/22 11/01/22 11/01/22 History tablet olanzapine 5 mg tablet 5 mg PO QPM 06/03/25 Unknown History prednisone 10 mg tablet 10 mg PO DAILY 06/03/25 Unknown History Allergies Allergy/AdvReac Type Severity Reaction Status Date / Time meperidine AdvReac Nausea and Verified 07/22/25 14:57 Vomiting Review of Systems Review of Systems: All systems reviewed & are unremarkable except as noted in HPI and below PMFSH Past Medical History Medical History Colles' fracture of left radius, initial encounter for closed fracture Family History Family History Other Family history of cardiovascular disease Family history of malignant neoplasm Hypertension Social History Social History Smoking status: Never smoker Alcohol intake: current Substance use: current Substance use type: marijuana Other substance usage details: Daily Living arrangements: with family Spiritual care concerns: No Exam Const: General: healthy appearing and no acute distress Nutritional Appearance: thin Orientation/consciousness: patient oriented x3 Limitations: no limitations Skin: General skin exam: normal color Rashes: no rashes Wounds: no wounds Neuro: General: patient oriented x3, moves all extremities, no meningeal signs and no focal motor deficits Extrem: Other: Left hip pain with movement and palpation Course Course Emergency Course: Medical decision making narrative: The patient was evaluated by myself in the emergency department. History obtained from the patient to his independent historian physical exam performed witnessed by a nurse. Patient had x-ray performed which showed no acute fractures of the left hip, Motrin 600mg was given. Repeat assessment: Patient doing well repeat exam in no acute distress. Symptoms have improved since arrival to the ED Repeat vitals are stable Patient agrees with discussion and after shared medical decision-making and agrees with DCP. All questions answered to patient and family satisfaction Follow-up with primary care physician/orthopedic doctor within the next 2 to 3 days for further evaluation and treatment. Vital Signs Vital signs: Vital Signs Temperature 36.7 C 07/22/25 15:28 Pulse Rate 114 H 07/22/25 15:28 Respiratory Rate 18 07/22/25 15:28 Blood Pressure 149/95 H 07/22/25 15:28 Pulse Oximetry 98 07/22/25 15:28 Oxygen Delivery Room Air 07/22/25 15:28 Temperature 36.7 C 07/22/25 15:28 Pulse Rate 114 H 07/22/25 15:28 Respiratory Rate 18 07/22/25 15:28 Blood Pressure 149/95 H 07/22/25 15:28 Pulse Oximetry 98 07/22/25 15:28 Oxygen Delivery Room Air 07/22/25 15:28 Critical Care Time Critical Care Time Critical Care Time: No Discharge Plan Discharge Clinical Impression: Muscle strain of left hip Qualifiers: Encounter type: initial encounter Qualified Code(s): S76.012A - Strain of muscle, fascia and tendon of left hip, initial encounter Patient Disposition: Home Condition: Stable Instructions: Antibiotic Form, Hip Sprain (ED) Additional Instructions: Advised patient to take Motrin as needed follow with orthopedics floor primary care within the next 2 to 3 days. Patient Language: Ukrainian Prescriptions: No Action leuprolide 3.75 mg Injectable See Rx Instructions .ROUTE .COMPLEX Rx Instructions: . hydrocodone-acetaminophen 7.5-325 mg tablet 1 tablet PO Q4-6H PRN (Reason: Pain) ergocalciferol (vitamin D2) 1,250 mcg (50,000 unit) capsule 1,250 mcg PO DAILY olanzapine 5 mg tablet 5 mg PO QPM prednisone 10 mg tablet 10 mg PO DAILY prochlorperazine maleate 10 mg tablet 10 mg PO Q6H PRN (Reason: Nausea) pantoprazole 40 mg tablet,delayed release (DR/EC) 40 mg PO BID Follow-up/Referrals: Arvind Castellanos MD [Primary Care Provider, Internal Medicine] Time of Disposition: 16:09
== END 2025-07-22 16:10 | disposition home or self-care (01) ==
PROVIDERS: Emergency Provider Emergency Medicine; PCP Internal Medicine
DX: S76.012A Strain of muscle, fascia and tendon of left hip, initial encounter (principal); W19.XXXA Unspecified fall, initial encounter
CPT/HCPCS: 73502; 99283; A9270

== ENCOUNTER 2025-07-23 08:12 | Emergency (ER) | payer MEDICARE, OTHER, SELFPAY ==
[2025-07-23] VITALS (8 sets, daily range): BP systolic 108–164; BP diastolic 53–86; PULSE 73–118; RESP 20; TEMP 36.6; O2SAT 96–97
--- NOTE | ~2025-07-23 | CT_ITS ---
Procedure: CT Pelvis without contrast. History: Avascular necrosis. Left hip pain.. Prostate CA. Comparison: Pelvic CT from 2020. Plain film from July 22. Technique: CT pelvis without oral and IV contrast. Multiplanar images. Dose reduction techniques were utilized Findings: BONES: No pelvic fracture or hip dislocation. There is sclerotic change in the superior femoral heads in the subchondral region, right greater than left. Serpiginous areas of sclerosis on the right are consistent with bone infarct. There are subtler such, mild such changes on the left. Age appropriate degenerative changes of the visualized lower lumbar spine. The hip and sacroiliac joint spaces are well maintained. There is an ill-defined sclerotic lesion which represents a change in the posterior superior left ilium. This is marked on the coronal and axial images. SOFT TISSUES: There is ill definition of the tissue planes in the pelvis. PELVIC ORGANS: The bladder is moderately distended. VISUALIZED BOWEL AND MESENTERY: Normal. No free air or free fluid. No lymphadenopathy. RETROPERITONEUM: Mild atheromatous disease. IMPRESSION: 1. Findings consistent with avascular necrosis of both femoral heads, right greater than left. 2. New ill-defined sclerotic lesion in the left ilium. Correlate with more recent previous imaging if clinically indicated. If there has been no imaging since 2020, further evaluation is warranted. Reviewed, dictated and finalized at location A. IMPRESSION: 1. Findings consistent with avascular necrosis of both femoral heads, right gre ater than left. 2. New ill-defined sclerotic lesion in the left ilium. Correlate with more rece nt previous imaging if clinically indicated. If there has been no imaging since 2020, further evaluation is warranted.
--- NOTE | 2025-07-23 08:16 | ED.LOWEXIN ---
HPI - Extremity Injury (Lower) General Chief Complaint: Extremity Injury, Lower Stated Complaint: fall; left hip pain Time Seen by Provider: 07/23/25 08:16 Source: patient and EMS Mode of arrival: EMS Limitations: no limitations History of Present Illness HPI Narrative: 70-year-old male with a history of hypertension, prostate cancer status post RT and chemo, osteoporosis presented to the ED yesterday after a fall where he sustained bilateral distal radial fractures. He was brought back to the ED within 1 hour fall left hip pain. He had x-rays of the left hip which did not show any acute findings. He was noted to have ongoing left hip pain and inability to stand or bear weight. He is brought back by the EMS. Unsure if he had a fall. No other injuries noted. MD complaint: hip injury and other Onset (ago): day(s) ( One day) Injury: Left: hip Place: home Relieving factors: immobilization Exacerbating factors: weight bearing and movement Other symptoms: none Related Data Home Medications ?Medication ?Instructions ?Recorded ?Confirmed ?Last Taken ?Type ergocalciferol (vitamin D2) 1,250 1,250 mcg PO DAILY 12/24/21 11/01/22 Unknown History mcg (50,000 unit) capsule hydrocodone 7.5 mg-acetaminophen 1 tablet PO Q4-6H PRN Pain 12/24/21 11/01/22 Unknown History 325 mg tablet leuprolide 3.75 mg intramuscular See Rx Instructions .Route .COMPLEX 12/24/21 11/01/22 Unknown History pantoprazole 40 mg tablet,delayed 40 mg PO BID 10/18/22 11/01/22 Unknown History release prochlorperazine maleate 10 mg 10 mg PO Q6H PRN Nausea 10/18/22 11/01/22 11/01/22 History tablet olanzapine 5 mg tablet 5 mg PO QPM 06/03/25 Unknown History prednisone 10 mg tablet 10 mg PO DAILY 06/03/25 Unknown History Allergies Allergy/AdvReac Type Severity Reaction Status Date / Time meperidine AdvReac Nausea and Verified 07/22/25 14:57 Vomiting Review of Systems Review of Systems: All systems reviewed & are unremarkable except as noted in HPI and below Constitutional: Constitutional: Reports as per HPI and Reports no additional constitutional complaints Eyes: Eyes: Reports as per HPI and Reports no additional eye complaints ENT: Reports system reviewed and no additional complaints, except as documented and Reports as per HPI Cardiovascular: Cardiovascular: Reports as per HPI and Reports no additional cardiovascular complaints Respiratory: Respiratory: Reports as per HPI and Reports no additional respiratory complaints Gastrointestinal: Gastrointestinal: Reports as per HPI and Reports no additional gastrointestinal complaints Genitourinary: Genitourinary: Reports no additional male genitourinary complaints and Reports as per HPI Musculoskeletal: Musculoskeletal: Reports no additional musculoskeletal complaints and Reports as per HPI Comments: left hip pain/pain in the left inguinal region. Has bilateral wrist splints from bilateral radial fractures. Integumentary/Breasts: Skin/Breast: Reports system reviewed and no additional complaints, except as docu and Reports as per HPI Neurologic: Reports system reviewed and no additional complaints, except as documented and Reports as per HPI Psychiatric: Psychiatric: Reports no additional psychiatric complaints and Reports as per HPI Endocrine: Endocrine: Reports no additional endocrine complaints and Reports as per HPI Hematologic/Lymphatic: Hematologic/Lymphatic: Reports no additional hematologic/lymphatic complaints and Reports as per HPI Allergic/Immunologic: Allergic/Immunologic: Reports no additional allergic/immunologic complaints and Reports as per HPI [facility] Past Medical History Medical History Colles' fracture of left radius, initial encounter for closed fracture Family History Family History Other Family history of cardiovascular disease Family history of malignant neoplasm Hypertension Social History Social History Smoking status: Never smoker Alcohol intake: current Substance use: current Substance use type: marijuana Other substance usage details: Daily Living arrangements: with family Spiritual care concerns: No Exam Narrative: Blood pressure 161/86. Pulse of 118. Const: General: no acute distress Orientation/consciousness: patient oriented x3 Limitations: no limitations HENMT: Head: normal to inspection Ears: external ears normal Face/Nose/Sinus: Normal external nose present Face and sinus: normal facial exam Mouth: Yes Normal oral and palatal mucosa present Throat: posterior oropharynx normal Eyes: Conjunctivae: conjunctivae normal Pupils: Equal, round and reactive pupils present EOM: EOMs intact bilaterally Direct Ophthalmoscopy: no photophobia Neck: Neck: normal visual inspection, no lymphadenopathy and no meningeal signs Chest: Chest palpation & inspection: normal inspection of the chest Resp: Effort & Inspection: normal respiratory effort Auscultation: clear to auscultation bilaterally Cardio: Rate: regular rate Rhythm: regular rhythm GI: GI Palp: Yes Soft to palpation Auscultation: normal bowel sounds Other: No tenderness/ rigidity / rebound. : General: Yes no CVA tenderness Back/Spine/Pelvis: Back: no CVA tenderness Skin: General skin exam: normal color Rashes: no rashes Wounds: no wounds Neuro: General: patient oriented x3, moves all extremities, no meningeal signs and no focal motor deficits Cranial nerves: Yes Nystagmus not present Speech: normal speech Extrem: General: normal to inspection and no clubbing, cyanosis or edema Other: Tenderness over the left inguinal region. Decreased range of motion of bilateral hips. Psych: Mental Status: mental status grossly normal Affect: normal affect Attitude: cooperative Course Course Emergency Course: left hip pain-- patient had x-ray done yesterday and did not show any fractures. Patient returns to the ED via EMS for ongoing left hip pain with inability to bear weight. 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 Bilateral distal radial fractures after an accidental fall yesterday. Discussed with ortho specialist --who will surgically repaired the distal radial fracture. Blood work is unremarkable. Vital Signs Vital signs: Vital Signs Temperature 36.6 C 07/23/25 08:12 Pulse Rate 118 H 07/23/25 08:12 Respiratory Rate 20 07/23/25 08:12 Blood Pressure 161/86 H 07/23/25 08:12 Pulse Oximetry 97 07/23/25 08:12 Oxygen Delivery Room Air 07/23/25 08:12 Temperature 36.6 C 07/23/25 08:12 Pulse Rate 73 07/23/25 11:54 Respiratory Rate 20 07/23/25 11:54 Blood Pressure 108/53 L 07/23/25 11:54 Pulse Oximetry 96 07/23/25 11:54 Oxygen Delivery Room Air 07/23/25 11:54 MDM - Extremity Injury (Lower) MDM Narrative Medical decision making narrative: Hip pain avascular necrosis of the femoral head anemia with an H&H of 11.2/34.4. Bilateral wrist fractures Differential Diagnosis Differential diagnosis: Likely other (Hip fracture. Hip dislocation) Medical Records Attestation: I reviewed the patient's medical records. Lab Data Attestation: I reviewed the patient's lab results. 07/23/25 08:48 07/23/25 08:48 Labs: Lab Results 07/23/25 07/23/25 Range/Units 08:48 09:24 WBC 14.9 H (4.8-10.8) K/mm3 RBC 3.80 L (4.70-6.10) M/mm3 Hgb 11.2 L (12.4-15.3) g/dL Hct 34.4 L (37.0-46.0) % MCV 90.5 (78.0-102.0) fL MCH 29.5 (27.0-31.0) pg MCHC 32.6 (32-36) g/dL RDW 14.8 H (11.6-14.4) % Plt Count 264 (150-420) K/mm3 MPV 10.2 (8.7-11.0) fl Immature Gran % (Auto) Not Reportable Neut % (Auto) Not Reportable Lymph % (Auto) Not Reportable Kinney % (Auto) Not Reportable Eos % (Auto) Not Reportable Baso % (Auto) Not Reportable Lymph # (Auto) Not Reportable Kinney # (Auto) Not Reportable Eos # (Auto) Not Reportable Baso # (Auto) Not Reportable Abs Immat Gran (auto) Not Reportable Absolute Neuts (auto) Not Reportable Absolute Nucleated RBC Not Reportable Total Counted 100 Neutrophils % (Manual) 83 H (46-73) % Band Neutrophils % 7 H (0-6) % Lymphocytes % (Manual) 5 L (18-44) % Monocytes % (Manual) 2 L (3-9) % Eosinophils % (Manual) 0 L (1-6) % Basophils % (Manual) 0 (0-1) % Metamyelocytes % 2 % Myelocytes % 1 % Nucleated RBC % Not Reportable Abs Neuts (Manual) 13.41 H (1.3-6.7) K/mm3 Abs Lymphs (Manual) 0.74 L (1.1-4.5) K/mm3 Abs Monocytes (Manual) 0.29 (0.1-0.90) K/mm3 Absolute Eos (Manual) 0.00 L (0.02-0.50) K/mm3 Abs Basophils (Manual) 0.00 (0-0.1) K/mm3 Platelet Estimate Adequate (Adequate) Schistocytes Not Reportable Sodium 141 (137-145) mmol/L Potassium 3.9 (3.4-5.0) mmol/L Chloride 102 (98-107) mmol/L Carbon Dioxide 31 H (22-30) mmol/L Anion Gap 8 (4-12) mmol/L BUN 21 H (9-20) mg/dL Creatinine 0.80 (0.7-1.3) mg/dL Estim Creat Clear Calc 62 ml/min Estimated GFR > 60 (59 - ) Glucose 117 H (65-110) mg/dL Calculated Osmolality 296 H (285-295) mOsm/kg Calcium 9.2 (8.4-10.2) mg/dL Total Bilirubin 0.7 (0.2-1.3) mg/dL AST 27 (17-59) U/L ALT 19 (6-50) U/L Alkaline Phosphatase 93 (38-126) U/L Total Protein 6.2 L (6.3-8.2) g/dL Albumin 3.9 (3.5-5.1) g/dL Lipase 32 (23-300) U/L Urine Color Light yellow (Yellow) Urine Appearance Clear (Clear) Urine pH 7.0 (5.0-8.0) Ur Specific [place] 1.015 (1.010-1.020) Urine Protein Trace H (Negative) Urine Glucose (UA) Negative (Negative) Urine Ketones Negative (Negative) Ur Blood (Man) Trace-intact H (Negative) Urine Nitrate Negative (Negative) Urine Bilirubin Negative (Negative) Urine Urobilinogen 0.2 (0.2-1.0) mg/dL Leukocyte Esterase Rfl Negative (Negative) EVELINE/UL Urine RBC 0-2 (0-2) /hpf Urine WBC None seen (0-3) /hpf Ur Squamous Epith Cells Rare (Few) /hpf Urine Bacteria Trace (None) /hpf Urine Mucus Moderate H /lpf Discharge Plan Discharge Clinical Impression: Avascular necrosis of femoral head Qualifiers: Laterality: unspecified laterality Qualified Code(s): M87.059 - Idiopathic aseptic necrosis of unspecified femur Fracture of wrist Qualifiers: Encounter type: initial encounter Fracture type: closed Laterality: unspecified laterality Qualified Code(s): S62.109A - Fracture of unspecified carpal bone, unspecified wrist, initial encounter for closed fracture Patient Disposition: Still a Patient Condition: Stable Additional Instructions: Transfer patient to [facility]. Patient has been accepted by Dr. Oscar Patient Language: Dutch Prescriptions: No Action leuprolide 3.75 mg Injectable See Rx Instructions .ROUTE .COMPLEX Rx Instructions: . hydrocodone-acetaminophen 7.5-325 mg tablet 1 tablet PO Q4-6H PRN (Reason: Pain) ergocalciferol (vitamin D2) 1,250 mcg (50,000 unit) capsule 1,250 mcg PO DAILY olanzapine 5 mg tablet 5 mg PO QPM prednisone 10 mg tablet 10 mg PO DAILY prochlorperazine maleate 10 mg tablet 10 mg PO Q6H PRN (Reason: Nausea) pantoprazole 40 mg tablet,delayed release (DR/EC) 40 mg PO BID Follow-up/Referrals: Arvind Castellanos MD [Primary Care Provider, Internal Medicine] Time of Disposition: 12:46
--- OUTSIDE RECORDS SUMMARY | 2025-07-23 08:20 | XMS_ITS | Clinical Summary ---
Author Organization [facility] [employer] Address [address] [place] [address] Care Team Providers Care Canary Breeder Name Role Phone Unavailable Primary Care Provider Unavailabl e Source Comments [facility] [employer],non-owned Affiliates and Associated Physician Practices is amultiple site organization consisting of ambulatory clinics and hospital sitesin [place], [place], [place] and [place]. This disclosure is being madepursuant to the Care Everywhere program and may not contain all information available regarding this patient. 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
[2025-07-23 08:54] LABS: Hematocrit 34.4 % (37.0-46.0); Hemoglobin 11.2 g/dL (12.4-15.3); Mean Corpuscular HGB Conc 32.6 g/dL (32-36); Mean Corpuscular Hemoglobin 29.5 pg (27.0-31.0); Mean Corpuscular Volume 90.5 fL (78.0-102.0); Platelet Count Result 264 K/mm3 (150-420); Red Blood Count 3.80 M/mm3 (4.70-6.10); White Blood Count 14.9 K/mm3 (4.8-10.8)
--- OUTSIDE RECORDS SUMMARY | 2025-07-23 09:05 | XMS_ITS | Encounter Summary ---
Author Organization [facility] Address [address] [place] [address] Phone Care Team Providers Care Administrative Nursing Supervisor Name Role Phone Arvind Castellanos MD Primary Care Provider [phone] Patrick Perez MD Unavailable [phone] Encounter Details Date Type Department Care Team (Late st Contact Info) Description 02/01/2023 Telephone [facility] Medicine Oncology [address] [place] [id number] Sandra Davila., B.A. 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
--- OUTSIDE RECORDS SUMMARY | 2025-07-23 09:05 | XMS_ITS | Clinical Summary ---
Author Organization [facility] Address [address] [place] [address] Care Team Providers Care Material Spreader Name Role Phone Arvind Castellanos MD Primary Care Provider [phone] Allergies Active Allergy Reactions Criticality Noted Date [...] by mouth daily. Active vitamin D2, ergocalciferol, 94115 UNITS capsule Take 50,000 Units by mouth. 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
--- OUTSIDE RECORDS SUMMARY | 2025-07-23 09:05 | XMS_ITS ---
Author Organization [facility] Address [address] [place] [address] Care Team Providers Care Head Waiter/Waitress Banquet Name Role Phone Arvind Castellanos MD Primary Care Provider [phone] Patrick Perez MD Unavailable [phone] Active Problems Problem Noted Date Diagnosed Date [...] Treatment Medications Discontinue Reason Plan Provider Cycles [id number] - [facility] - - [id number] PART 1B DOSE EXPANSION ARM Cohort 11&13(Q3W x 4 induction cycles, Q6W maintenance) - ARX 517 5 04/14/2025 INV-[facility] (/A [id number]) [id number] IVPB in 250 mLINV-[facility] brimonidine 0.2 % (/A [id number])INV -[facility] Systane Complete PF (/A [id number])INV -[facility] Systane Nighttime Lubricant (/A [id number]) Progressive Disease Kemal Guillaume MD 7 of 8 cycles started Sipuleucel-T 14 Day Cycles - Prostate 01/24/2024 05/05/2024 [id number] actated ringers (PROVENGE) >50 million cell/250 mL Therapy Complete Kemal Guillaume MD 3 of 3 cycles started Apalutamide 240mg daily 28 day cycles 09/10/2022 No medications scheduled. Progression Keaml Guillaume MD 3 of 6 cycles started Lifetime Dose Tracking * Chemical Lifetime Dose Automatic Entry Manual Entr y Fluoro Time 0.3 minutes 0.3 minutes 0 minutes Air kerma at the reference point (Ka,r) 1 mGy 1 mGy 0 mGy DLP 2,455 mGycm 2,455 mGycm 0 mGycm
--- OUTSIDE RECORDS SUMMARY | 2025-07-23 09:05 | XMS_ITS | Clinical Summary ---
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 [address] [place] [address] Franc Wyman MD Needs Appointment 06/10/2025 3:58 PM CDT - 06/10/2025 5:11 PM CDT Surgery [facility] Operating Room [address] [place] [address] Jessie Posada MD CYSTO CLOT EVACUATION BIPOLAR BLADDER FULGURATION AND URETHRAL DILATION 06/10/2025 3:42 PM CDT Anesthesia Event [facility] Operating Room [address] [place] [address] Aliyah Bone MD Fitzer, Julia N, AA 06/09/2025 External Device Data STL ABSTRACTION Provider, Abstract 06/08/2025 External Device Data STL ABSTRACTION Provider, Abstract 06/08/2025 External Device Data STL ABSTRACTION Provider, Abstract 06/04/2025 4:42 AM CDT - 06/11/2025 11:47 AM CDT Hospital Encounter [facility] Cardiovascular Progressive Care unit [address] [place] [address] Marco Antonio Gallego MD Amin, Birju V., [...] FUNCTION PANEL Routine 06/11/2025 4:50 AM CDT [place] CYSTO W/DESTRUCTION OF LESIONS 06/10/2025 3:58 PM [...] - 9.8 K/uL 06/11/2025 5:02 AM CDT [facility] RBC 4.18(L) 4.50 - 5.40 M/uL 06/11/2025 5:02 AM CDT [facility] HEMOGLOBIN 12.5(L) 13.6 - 16.5 g/dL 06/11/2025 5:02 AM CDT [facility] HEMATOCRIT 36.3(L) 40.0 - 48.0 % 06/11/2025 5:02 AM CDT [facility] MCV 86.8 82.0 - 99.0 fL 06/11/2025 5:02 AM CDT [facility] MCH 29.9 27.2 - 32.6 pg 06/11/2025 5:02 AM CDT [facility] MCHC 34.4 31.5 - 35.5 g/dL 06/11/2025 5:02 AM CDT [facility] PLATELETS 313 140 - 350 K/uL 06/11/2025 5:02 AM CDT [facility] MPV 10.7 9.3 - 12.4 fL 06/11/2025 5:02 AM CDT [facility] RDW 12.5 11.5 - 14.5 % 06/11/2025 5:02 AM CDT [facility] RDW-STDEV 39.7 37.1 - 48.7 fL 06/11/2025 5:02 AM CDT [facility] Blood Venipuncture / Unknown 06/11/2025 4:50 AM CDT 06/11/2025 4:52 AM CDT Andrez Cerf Cyndee DO HEMATOLOGY ORDERABLES F inal Result Performing Organization Address City/[facility]/ZIP Co de Phone Number [facility] CLIA# [id number] [address] [place] [address] * MAGNESIUM LEVEL (06/11/2025 4:50 AM CDT) Only the most recent of5 resultswithin the time period is included. MAGNESIUM 1.7 1.6 - 2.6 mg/dL 06/11/2025 5:26 AM CDT [facility] Blood Venipuncture / Unknown 06/11/2025 4:50 AM CDT 06/11/2025 4:52 AM CDT Andrez Cerf Cyndee DO CHEMISTRY ORDERABLES Fi nal Result Performing Organization Address City/[facility]/ZIP Co de Phone Number [facility] CLIA# [id number] [place] [address] * (ABNORMAL) RENAL FUNCTION PANEL (06/11/2025 4:50 AM CDT) Only the most recent of4 resultswithin the time period is included. SODIUM 142 136 - 145 mmol/L 06/11/2025 5:26 AM T [facility] POTASSIUM 4.3 3.4 - 5.1 mmol/L 06/11/2025 5:26 AM [facility] CHLORIDE 104 98 - 107 mmol/L 06/11/2025 5:26 AM [facility] CO2 28 22 - 29 mmol/L 06/11/2025 5:26 AM [facility] CALCIUM 9.1 8.6 - 10.4 mg/dL 06/11/2025 5:26 AM [facility] BUN 24(H) 6 - 20 mg/dL 06/11/2025 5:26 AM [facility] CREATININE 0.79 0.67 - 1.17 mg/dL 06/11/2025 5:26 AM [facility] Comment:The GFR result is no t clinically significant on patients <18 or >70 years of age. GLUCOSE 135(H) 74 - 99 mg/dL 06/11/2025 5:26 AM [facility] ALBUMIN 3.5 3.5 - 5.2 g/dL 06/11/2025 5:26 AM [facility] PHOSPHORUS 3.4 2.5 - 4.5 mg/dL 06/11/2025 5:26 AM [facility] GFR >60 mL/min/1.7 3 sq meter 06/11/2025 5:26 AM [facility] Comment:eGFR calculated with 2020 CKD-EPI equation. Vegetarian diet, extremely high or low muscle mass, and may affect results. Cystatin C with Glomerular Filtration Rate is a suitable alternative for these patients. ANION GAP 10 8 - 16 mmol/L 06/11/2025 5:26 AM [facility] Blood Venipuncture / Unknown 06/11/2025 4:50 AM CDT 06/11/2025 4:52 AM CDT Andrez Cotter DO CHEMISTRY ORDERABLES Fi nal Result Performing Organization Address [facility]/ZIP Co de Phone Number [facility] [id number] [address] [place] [address] * TYPE AND SCREEN (06/10/2025 5:24 AM CDT) Only the most recent of2 resultswithin the time period is included. ABO GROUP B 06/10/2025 6:31 AM CDT [facility] RH (D) TYPE Positive 06/10/2025 6:31 AM CDT [facility] ANTIBODY SCREEN Negative 06/10/2025 6:31 AM CDT [facility] Blood Venipuncture / Unknown 06/10/2025 5:24 AM CDT 06/10/2025 5:37 AM CDT Nicholas Wall MD BLOOD BANK ORDERABLES Edited Res ult - Final Performing Organization Address [facility] Co de Phone Number [facility]# [id number] [place] [address] * URINE CULTURE (06/09/2025 6:36 PM CDT) Only the most recent of2 resultswithin the time period is included. CULTURE No growth at 24 hours 06/11/2025 8:02 AM CDT [facility] Urine URINE SPECIMEN OBTAINED BY CLEAN CATCH PROCEDURE / Unknown Collection / Unknown 06/09/2025 6:36 PM CDT 06/09/2025 8:10 PM CDT Selwyn Valencia DNP MICROBIOLOGY - GENERAL ORDERABLES Final Result Performing Organization Address City/[facility]/ZIP Co de Phone Number [facility] [id number] [address] [place] [address] * UNFRACTIONATED HEPARIN MONITORING (06/09/2025 6:53 AM CDT) [facility] ANTI-XA UNFRAC HEP <0.10 See Interpreta tion. IU/mL 06/09/2025 7:36 AM CDT [facility] Blood Venipuncture / Unknown 06/09/2025 6:53 AM CDT 06/09/2025 7:09 AM CDT Narrative [facility] - 06/09/2025 7:36 AM CDT Unfractionated Heparin Therapeutic Range: 0.30-0.70 IU/ml Refer to pharmacy adult heparin protocol for further recommendation. The reference range for this test is specific to the anticoagulant and is not appropriate for monitoring patients on a DOAC protocol. us Ulices Rizo NP HEMATOLOGY ORDERABLES Final Res ult [facility] CLIA# [id number] [place] [address] * PTT (06/09/2025 6:53 AM CDT) [facility] PTT 26.5 23.1 - 37.1 seconds 06/09/2025 7:36 AM CDT [facility] Blood Venipuncture / Unknown 06/09/2025 6:53 AM CDT 06/09/2025 7:09 AM CDT us Ulices Rizo NP HEMATOLOGY ORDERABLES Final Res ult [facility] CLIA# [id number] [place] [address] * (ABNORMAL) TROPONIN (06/09/2025 5:15 AM CDT) Only the most recent of2 resultswithin the time period is included. [facility] TROPONIN T, 5TH GEN 271(HH) <=15 ng/L 06/09/2025 6:22 AM CDT [facility] Blood Venipuncture / Unknown 06/09/2025 5:15 AM CDT 06/09/2025 5:29 AM CDT Narrative [facility] - 06/09/2025 6:22 AM CDT Troponin elevated. Andrez Cotter DO CHEMISTRY ORDERABLES Fi nal Result [facility] CLIA# [id number] [place] [address] * EXTRA TUBE (URINE LÓPEZ) (06/08/2025 4:25 PM CDT) Only the most recent of2 resultswithin the time period is included. Urine URINE SPECIMEN OBTAINED BY CLEAN CATCH PROCEDURE / Unknown Collection / Unknown 06/08/2025 4:25 PM CDT 06/08/2025 4:41 PM CDT Andrez Cotter DO URINE ORDERABLES Final Result Performing Organization Address [facility] Co de Phone Number [facility] CLIA# [id number] [place] [address] * STREPTOCOCCUS PNEUMONIAE ANTIGEN (06/08/2025 4:25 PM CDT) [facility] STREPTOCOCCUS PNEUMONIAE AG NOT DETECTED Not Detected 06/08/2025 9:44 PM CDT [facility] Urine URINE SPECIMEN OBTAINED BY CLEAN CATCH PROCEDURE / Unknown Collection / Unknown 06/08/2025 4:25 PM CDT 06/08/2025 4:40 PM CDT Selwyn Valencia [facility] MICROBIOLOGY - GENERAL ORDERABLES Final Result Performing Organization Address City/[facility]/ZIP Co de Phone Number [facility] CLIA# [id number] [address] [facility] [address] * SODIUM, RANDOM URINE (06/08/2025 4:25 PM CDT) Only the most recent of2 resultswithin the time period is included. SODIUM, URINE 89 mmol/L 06/08/2025 5:20 PM CDT [facility] Comment:Reference range not established Urine URINE SPECIMEN OBTAINED BY CLEAN CATCH PROCEDURE / Unknown Collection / Unknown 06/08/2025 4:25 PM CDT 06/08/2025 4:41 PM CDT [facility] Cyndee DO URINE ORDERABLES Final Result Performing Organization Address [facility]/ZIP Co de Phone Number [facility] [id number] [place] [address] * CREATININE, RANDOM URINE (06/08/2025 4:25 PM CDT) Only the most recent of2 resultswithin the time period is included. CREATININE, URINE 87.6 40.0 - 278.0 mg/dL 06/08/2025 5:20 PM CDT [facility] Comment:Reference Range vari es with fluid intake and diet. Urine URINE SPECIMEN OBTAINED BY CLEAN CATCH PROCEDURE / Unknown Collection / Unknown 06/08/2025 4:25 PM CDT 06/08/2025 4:41 PM CDT [employer] Cyndee DO URINE ORDERABLES Final Result Performing Organization Address City/[facility]/ZIP Co de Phone Number [facility] [id number] [place] [address] * (ABNORMAL) URINALYSIS WITH REFLEX MICROSCOPIC (06/08/2025 4:25 PM CDT) Only the most recent of2 resultswithin the time period is included. COLOR UA Claudette(A) Pale to Dark Yellow 06/08/2025 4:56 PM CDT [facility] CLARITY UA Cloudy(A) Clear 06/08/2025 4:56 PM CDT [facility] SPECIFIC GRAVITY UA 1.013 1.003 - 1.035 06/08/2025 4:56 PM CDT [facility] PH UA 6.0 5.0 - 8.0 06/08/2025 4:56 PM CDT [facility] LEUKOCYTE ESTERASE UA Negative Negative 06/08/2025 4:56 PM CDT [facility] NITRITE UA Negative Negative 06/08/2025 4:56 PM CDT [facility] PROTEIN UA 2+(A) Negative 06/08/2025 4:56 PM CDT [facility] GLUCOSE UA 1+(A) Negative 06/08/2025 4:56 PM CDT [facility] KETONES UA 1+(A) Negative 06/08/2025 4:56 PM CDT [facility] UROBILINOGEN UA Normal <2.0 mg/dL 4:56 PM CDT [facility] BILIRUBIN UA Negative Negative 06/08/2025 4:56 PM CDT [facility] BLOOD UA 2+(A) Negative 06/08/2025 4:56 PM CDT [facility] WBC UA >100(A) 0 - 2 /hpf 06/08/2025 4:56 PM CDT [facility] RBC UA >100(A) 0 - 2 /hpf 06/08/2025 4:56 PM CDT [facility] BACTERIA UA 2+(A) Negative /hpf 06/08/2025 4:56 PM CDT [facility] EPITHELIAL CELLS, URINE 0-5 0 - 5 /hpf 06/08/2025 4:56 PM CDT [facility] HYALINE CAST None Seen None Seen, 0-2 /lpf 06/08/2025 4:56 PM CDT [facility] Urine URINE SPECIMEN OBTAINED BY CLEAN CATCH PROCEDURE / Unknown Collection / Unknown 06/08/2025 4:25 PM CDT 06/08/2025 4:41 PM CDT [facility] Montserrat Cotter DO URINE ORDERABLES Final Result [facility] [employer] [facility] CLIA# [id number] [address] [place] [address] * US RENAL AND BLADDER (06/08/2025 11:21 AM CDT) Anatomical Region Laterality Modality Abdomen Ultrasound 06/08/2025 11:2 1 AM CDT Impressions 06/08/2025 11:33 AM CDT IMPRESSION: 1. Pedunculated soft tissue mass within the bladder concerning for neoplasm. Direct visualization and/or tissue sampling is recommended for further evaluation. 2. Prominence of the right greater than left renal pelvis. DICTATION LOCATION: Location 7 - [facility] Narrative 06/08/2025 11:33 AM CDT EXAMINATION: [...] 527(HH) <=15 ng/L 06/08/2025 6:44 AM CDT [facility] [employer] [facility] DELTA 6HR TROPONIN T % 206(HH) See Interp. % 06/08/2025 6:44 AM CDT [facility] [employer] [facility] Blood Venipuncture / Unknown 06/08/2025 5:48 AM CDT 06/08/2025 6:12 AM CDT Narrative [facility] - 06/08/2025 6:44 AM CDT Troponin elevated. Delay in collection of timed specimen beyond recommended collection interval. Results must be interpreted in clinical context. Delta significant change. Francisco Guerra PA-C CHEMISTRY ORDERABLES Final Result [facility] CLIA# [id number] [place] [address] * (ABNORMAL) CBC WITH DIFFERENTIAL (06/08/2025 5:48 AM CDT) Only the most recent of5 resultswithin the time period is included. WBC 6.5 4.0 - 9.8 K/uL 06/08/2025 6:15 AM CDT [facility] RBC 3.85(L) 4.50 - 5.40 M/uL 06/08/2025 6:15 AM CDT [facility] HEMOGLOBIN 11.2(L) 13.6 - 16.5 g/dL 06/08/2025 6:15 AM CDT [facility] HEMATOCRIT 32.7(L) 40.0 - 48.0 % 06/08/2025 6:15 AM CDT [facility] MCV 84.9 82.0 - 99.0 fL 06/08/2025 6:15 AM CDT [facility] MCH 29.1 27.2 - 32.6 pg 06/08/2025 6:15 AM CDT [facility] MCHC 34.3 31.5 - 35.5 g/dL 06/08/2025 6:15 AM CDT [facility] RDW 12.3 11.5 - 14.5 % 06/08/2025 6:15 AM CDT [facility] RDW-STDEV 37.2 37.1 - 48.7 fL 06/08/2025 6:15 AM CDT [facility] PLATELETS 184 140 - 350 K/uL 06/08/2025 6:15 AM CDT [facility] MPV 10.9 9.3 - 12.4 fL 06/08/2025 6:15 AM CDT [facility] NEUTROPHILS 79 % 06/08/2025 6:15 AM CDT [facility] LYMPHOCYTES 4 % 06/08/2025 6:15 AM CDT [facility] MONOCYTES 15 % 06/08/2025 6:15 AM CDT [facility] EOSINOPHILS 0 % 06/08/2025 6:15 AM CDT [facility] BASOPHILS 0 % 06/08/2025 6:15 AM CDT [facility] IMMATURE GRANULOCYTES 1 % 06/08/2025 6:15 AM CDT [facility] Comment:IG (Immature Granulo cyte) count includes Metamyelocytes, Myelocytes, and Promyelocytes NEUTROPHIL ABSOLUTE 5.16 1.90 - 7.00 K/uL 06/08/2025 6:15 AM CDT [facility] LYMPHOCYTE ABSOLUTE 0.25(L) 0.70 - 4.50 K/uL 06/08/2025 6:15 AM CDT [facility] MONOCYTE ABSOLUTE 1.00 0.10 - 1.30 K/uL 06/08/2025 6:15 AM CDT [facility] EOSINOPHIL ABSOLUTE 0.00 0.00 - 0.70 K/uL 06/08/2025 6:15 AM CDT [facility] BASOPHILS ABSOLUTE 0.02 0.00 - 0.20 K/uL 06/08/2025 6:15 AM CDT [facility] IMMATURE GRANULOCYTES ABSOLUTE 0.08(H) 0.00 - 0.03 K/uL 06/08/2025 6:15 AM T [facility] Blood Venipuncture / Unknown 06/08/2025 5:48 AM CDT 06/08/2025 6:11 AM CDT Andrez Cotter DO HEMATOLOGY ORDERABLES F inal Result [facility] CLIA# [id number] [address] [place] [address] * (ABNORMAL) TROPONIN 2 HR, 5TH GEN (06/07/2025 9:14 PM CDT) TROPONIN T, 2 HR 5TH GEN 186(HH) <=15 ng/L 06/07/2025 10:06 PM CDT [facility] [employer] [facility] Blood Venipuncture / Unknown 06/07/2025 9:14 PM CDT 06/07/2025 9:33 PM CDT Narrative [facility] [employer] [facility] - 06/07/2025 10:06 PM CDT Troponin elevated. Delay in collection of timed specimen beyond recommended collection interval. Results must be interpreted in clinical context. Unable to calculate delta. Whiphand PA-C CHEMISTRY ORDERABLES Final Result [facility] [id number] [address] [place] [address] * (ABNORMAL) TROPONIN BASELINE, 5TH GEN (06/07/2025 8:55 PM CDT) TROPONIN T, BASELINE 5TH GEN 172(HH) <=15 ng/L 06/07/2025 10:05 PM CDT [facility] [employer] [facility] Blood Venipuncture / Unknown 06/07/2025 8:55 PM CDT 06/07/2025 9:33 PM CDT Narrative [facility] [employer] [facility] - 06/07/2025 10:05 PM CDT Troponin elevated. Xenon Arcel PA-C CHEMISTRY ORDERABLES Final Result [facility] [employer] [facility]# [id number] [place] [address] * (ABNORMAL) HEMOGLOBIN AND HEMATOCRIT (06/07/2025 8:55 PM CDT) Only the most recent of2 resultswithin the time period is included. [facility] HEMOGLOBIN 11.6(L) 13.6 - 16.5 g/dL 06/07/2025 9:35 PM CDT [facility] HEMATOCRIT 33.5(L) 40.0 - 48.0 % 06/07/2025 9:35 PM CDT [facility] Blood Venipuncture / Unknown 06/07/2025 8:55 PM CDT 06/07/2025 9:34 PM CDT Francisco Guerra PA-C HEMATOLOGY ORDERABLES Final Result [facility] CLIA# [id number] [place] [address] * (ABNORMAL) BASIC METABOLIC PANEL (06/07/2025 8:55 PM CDT) Only the most recent of2 resultswithin the time period is included. [facility] SODIUM 142 136 - 145 mmol/L 06/07/2025 10:02 PM CDT [facility] POTASSIUM 3.3(L) 3.4 - 5.1 mmol/L 06/07/2025 10:02 PM CDT [facility] CHLORIDE 106 98 - 107 mmol/L 06/07/2025 10:02 PM CDT [facility] CO2 22 22 - 29 mmol/L 06/07/2025 10:02 PM CDT [facility] CALCIUM 9.2 8.6 - 10.4 mg/dL 06/07/2025 10:02 PM CDT [facility] BUN 18 6 - 20 mg/dL 06/07/2025 10:02 PM CDT [facility] CREATININE 1.17 0.67 - 1.17 mg/dL 06/07/2025 10:02 PM CDT [facility] Comment:The GFR result is no t clinically significant on patients <18 or >70 years of age. GLUCOSE 123(H) 74 - 99 mg/dL 06/07/2025 10:02 PM CDT [facility] GFR >60 mL/min/1.7 3 sq meter 06/07/2025 10:02 PM CDT [facility] Comment:eGFR calculated with 2020 CKD-EPI equation. Vegetarian diet, extremely high or low muscle mass, and may affect results. Cystatin C with Glomerular Filtration Rate is a suitable alternative for these patients. ANION GAP 14 8 - 16 mmol/L 06/07/2025 10:02 PM CDT [facility] Blood Venipuncture / Unknown 06/07/2025 8:55 PM CDT 06/07/2025 9:33 PM CDT Francisco Guerra PA-C CHEMISTRY ORDERABLES Final Result [facility] CLIA# [id number] [address] [place] [address] * EKG 12-LEAD (06/07/2025 7:56 PM CDT) Only the most recent of2 resultswithin the time period is included. 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1955 Requested By: MARCO ANTONIO PAEZ Order Number: [id number] Reading MD: Nadir Michaels Measurements Intervals [place] Rate: 75 P: 80 [place]: 168 QRS: 115 QRSD: 142 T: 74 QT: 386 QTc: 431 Interpretive Statements Sinus rhythm with premature atrial complexes Right bundle branch block Abnormal ECG Compared to ECG 06/04/2025 07:27:46 Atrial premature complex(es) now present Electronically Signed On 06-08-2025 6:48:36 CDT by Nadir Michaels Procedure Note Provider, Historical - 06/08/[address] [address] Test Date: 2025-06-07 Pat Name: MAYANK JENKINS Department: 96 Room: [address] [place] [address] Gender: M 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1955 Requested By: MARCO ANTONIO PAEZ Order Number: [id number] Reading MD: Nadir Michaels Measurements Intervals [place] Rate: 75 P: 80 [place]: 168 QRS: 115 QRSD: 142 T: 74 [...] - 145 mmol/L 06/06/2025 7:10 AM CDT [facility] POTASSIUM 3.1(L) 3.4 - 5.1 mmol/L 06/06/2025 7:10 AM CDT [facility] CHLORIDE 107 98 - 107 mmol/L 06/06/2025 7:10 AM CDT [facility] CO2 24 22 - 29 mmol/L 06/06/2025 7:10 AM CDT [facility] CALCIUM 9.1 8.6 - 10.4 mg/dL 06/06/2025 7:10 AM CDT [facility] BUN 14 6 - 20 mg/dL 06/06/2025 7:10 [facility] CREATININE 0.76 0.67 - 1.17 mg/dL 06/06/2025 7:10 AM [facility] Comment:The GFR result is no t clinically significant on patients <18 or >70 years of age. GLUCOSE 107(H) 74 - 99 mg/dL 06/06/2025 7:10 AM [facility] TOTAL PROTEIN 6.4 6.3 - 8.7 g/dL 06/06/2025 7:10 AM [facility] ALBUMIN 3.7 3.5 - 5.2 g/dL 06/06/2025 7:10 AM [facility] BILIRUBIN TOTAL 0.9 0.0 - 1.1 mg/dL 06/06/2025 7:10 AM [facility] ALKALINE PHOSPHATASE 47 40 - 150 U/L 06/06/2025 7:10 AM [facility] AST 29 0 - 41 U/L 06/06/2025 7:10 [facility] ALT 8 0 - 41 U/L 06/06/2025 7:10 [facility] GFR >60 mL/min/1.7 3 sq meter 06/06/2025 7:10 AM [facility] Comment:eGFR calculated with 2020 CKD-EPI equation. Vegetarian diet, extremely high or low muscle mass, and may affect results. Cystatin C with Glomerular Filtration Rate is a suitable alternative for these patients. ANION GAP 13 8 - 16 mmol/L 06/06/2025 7:10 AM [facility] Blood Venipuncture / Unknown 06/06/2025 5:30 AM CDT 06/06/2025 5:38 AM CDT us Orly Hernández DO CHEMISTRY ORDERABLES Final Resu lt [facility] CLIA# [id number] [place] [address] * LEGIONELLA ANTIGEN, URINE (06/05/2025 5:27 PM CDT) [facility] LEGIONELLA AG, URINE NOT DETECTED Not Detected 06/06/2025 2:49 PM CDT [facility] Urine URINE SPECIMEN OBTAINED BY CLEAN CATCH PROCEDURE / Unknown Collection / Unknown 06/05/2025 5:27 PM CDT 06/05/2025 9:20 PM CDT [facility] - 06/06/2025 2:49 PM CDT This [...] is not detected in urine. Selwyn Valencia [facility] MICROBIOLOGY - GENERAL ORDERABLES Final Result [facility]# [id number] [address] [place] [address] * RESPIRATORY PATHOGEN PCR PANEL (06/05/2025 11:35 AM CDT) [facility] Respiratory Pathogen PCR Panel NOT DETECTED No respiratory pathogen nucleic acids detected. 06/05/2025 12:40 PM CDT [facility] COVID-19 PCR NOT DETECTED Not Detected 06/05/2025 12:40 PM CDT [facility] Upper Respiratory ENTIRE NASOPHARYNX / Unknown Collection / Unknown 06/05/2025 11:35 AM CDT 06/05/2025 11:46 AM CDT [facility] - 06/05/2025 12:40 PM CDT The [...] GENERAL ORDERABLES Final Result Performing Organization Address City/[facility]/ZIP Co de Phone Number [id number] [place] [address] * PROTIME-INR (06/05/2025 5:43 AM CDT) PROTIME 14.7 11.5 - 14.7 Seconds 06/05/2025 6:57 AM CDT [facility] INR 1.1 0.9 - 1.1 06/05/2025 6:57 AM CDT [facility] Blood Venipuncture / Unknown 06/05/2025 5:43 AM CDT 06/05/2025 6:26 AM CDT Genaro Mclean DO HEMATOLOGY ORDERABL ES Final Result Performing Organization Address [facility] Co de Phone Number [facility]# [id number] [address] [place] [address] * (ABNORMAL) PROCALCITONIN (06/05/2025 3:30 AM CDT) PROCALCITONIN 1.10(H) <=0.25 ng/mL 06/05/2025 10:42 AM CDT [facility] Blood Venipuncture / Unknown 06/05/2025 3:30 AM CDT 06/05/2025 3:37 AM CDT Narrative [facility] - 06/05/2025 10:42 AM CDT The [...] and peaks within 6-24 hours. Selwyn Valencia [facility] CHEMISTRY ORDERABLES [facility] Result [facility] [id number] [place] [address] * (ABNORMAL) MANUAL DIFFERENTIAL (06/05/2025 3:30 AM CDT) Only the most recent of3 resultswithin the time period is included. ADJUSTED WBC 1.3 K/uL 06/05/2025 4:30 AM CDT [facility] NRBC PER 100 WBC 1(H) <=0 /100 WBC 06/05/2025 4:30 AM CDT [facility] SEGMENTED NEUTROPHILS 28 % 06/05/2025 4:30 AM CDT [facility] LYMPHOCYTES RELATIVE 58(H) 43 - 53 % 06/05/2025 4:30 AM CDT [facility] MONOCYTES RELATIVE 11 % 2024 4:30 AM CDT [facility] BASOPHILS RELATIVE 2 % 2024 4:30 AM CDT [facility] METAMYELOCYTES RELATIVE 1(H) <=0 % 06/05/2025 4:30 AM CDT [facility] NEUTROPHILS ABSOLUTE COUNT 0.37(LL) 1.90 - 7.00 K/uL 06/05/2025 4:30 AM CDT [facility] LYMPHOCYTES ABSOLUTE 0.76 0.70 - 4.50 K/uL 06/05/2025 4:30 AM CDT [facility] MONOCYTES ABSOLUTE 0.14 0.10 - 1.30 K/uL 06/05/2025 4:30 AM CDT [facility] BASOPHILS ABSOLUTE 0.02 0.00 - 0.20 K/uL 06/05/2025 4:30 AM CDT [facility] TOTAL CELLS COUNTED IN DIFF 110 06/05/2025 4:30 AM CDT [facility] RBC MORPHOLOGY abnormal 06/05/2025 4:30 AM CDT [facility] PLATELET EST. Adequate 06/05/2025 4:30 AM CDT [facility] ANISOCYTOSIS 1+ /hpf 06/05/2025 4:30 AM CDT [facility] POIKILOCYTES 2+ /hpf 06/05/2025 4:30 AM CDT [facility] SMUDGE CELLS Present /100 06/05/2025 4:30 AM CDT [facility] Blood Venipuncture / Unknown 06/05/2025 3:30 AM CDT 06/05/2025 3:40 AM CDT us Orly Hernández DO HEMATOLOGY ORDERABLES COM Final Result [facility] CLIA# [id number] [place] [address] * (ABNORMAL) C-REACTIVE PROTEIN (06/05/2025 3:30 AM CDT) CRP 149.0(H) <5.0 mg/L 06/05/2025 10:11 AM CDT [facility] Blood Venipuncture / Unknown 06/05/2025 3:30 AM CDT 06/05/2025 3:37 AM CDT us Selwyn Valencia DNP CHEMISTRY ORDERABLES Fi nal Result [facility] CLIA# [id number] [address] [place] [address] * CT CHEST ABDOMEN PELVIS W CONT [...] as above. DICTATION LOCATION: Location 7 - [facility] Narrative 06/04/2025 7:45 PM CDT EXAM: [...] CULTURE No growth 06/10/2025 4:26 AM CDT [facility] Blood (Peripheral) Venipuncture / Unknown 06/04/2025 4:21 PM CDT 06/04/2025 5:01 PM CDT Orly Hernández DO MICROBIOLOGY - GENERAL ORDERABL ES Final Result [id number] [address] [facility] [place] [place] [address] * ECHO COMPLETE - CONTRAST AND STRAIN IF INDICATED (06/04/2025 12:10 PM CDT) EJECTION FRACTION 64 INTERFACE SYSTEM 06/04/2025 11:4 1 AM CDT Narrative INTERFACE SYSTEM - 06/04/2025 12:14 PM CDT Transthoracic Echocardiogram Patient: Mayank Jenkins Study ID: [id number] Gender: M : 1955 Age: 70 Race: RAMON Height 180.3cm Study Date: 06/04/2025 Weight: 56.4kg Access. #: [id number] BP: 127 / 65 *Referring Physician:* Orly Hernández V. *Ordering Physician:* Orly Hernández V. *Clinching Machine Operator:Susan Orozco RDCS pst supervisor: Nurse: Indications: High BNP. History: PMH: No [...] values inside specified reference range. Procedure data: [facility] No prior study was available for comparison. [...] Prepared and Electronically Authenticated He Valle M.D. [id number]:20 Procedure Note He Valle MD - 06/04/2025 Transthoracic Echocardiogram Patient: Mayank Jenkins Study ID: [id number] Gender: M : 1955 Age: 70 Race: RAMON Height 180.3cm Study Date: 06/04/2025 Weight: 56.4kg Access. #: [id number] BP: 127 / 65 *Referring Physician:* Orly Hernández V. *Ordering Physician:* Orly Hernández V. *Clinching Machine Operator:* Erika Orozco [facility] pst supervisor: Nurse: Indications: High BNP. History: PMH: No [...] values inside specified reference range. Procedure data: [facility] No prior study was available for comparison. [...] Prepared and Electronically Authenticated He Valle M.D. [id number]:20 us Orly Hernández DO US ORDERABLES Final Result Performing Organization Address City/[facility]/ZIP Co de Phone Number INTERFACE SYSTEM Refer to clinic/hospital department * LACTIC ACID (06/04/2025 7:05 AM CDT) LACTIC ACID 1.0 <=2.0 mmol/L 06/04/2025 7:51 AM CDT [facility] Blood Venipuncture / Unknown 06/04/2025 7:05 AM CDT 06/04/2025 7:23 AM CDT us Orly Hernández DO CHEMISTRY ORDERABLES Final Resu lt Performing Organization Address [facility] Co de Phone Number [facility] CLIA# [id number] [place] [address] * XR PRIOR STUDY (06/03/2025 7:35 PM CDT) Narrative [facility] - 06/04/2025 4:17 PM CDT This exam was auto finalized to allow images to be scanned to PACS. External Provider [facility] DIAGNOSTIC IMAGING ORDERA BLES Final Result Performing Organization Address [facility] Co de Phone Number [facility]INT [facility] CLIA # [id number] [place] [address] from Last 3 Months Insurance MEDICARE PART A AND B [facility] RX [place] Medicare Part D RX [employer] (INTERNAL) [facility] Internal Plans Advance Directives For more information, please contact: [phone] * Full Code (Latest Code Status on File) Date Activated Date Inactivated Comments 06/04/2025 7:59 AM 06/11/2025 1:57 PM 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
--- OUTSIDE RECORDS SUMMARY | 2025-07-23 09:05 | XMS_ITS | Clinical Summary ---
Author Organization [facility] [employer] Address [address] [place] [address] Care Team Providers Care Radiology Orderly Name Role Phone Unavailable Primary Care Provider Unavailabl e Source Comments [facility] [employer],non-owned Affiliates and Associated Physician Practices is amultiple site organization consisting of ambulatory clinics and hospital sitesin [place], [place], [place] and [place]. This disclosure is being madepursuant to the Care Everywhere program and may not contain all information available regarding this patient. 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
--- OUTSIDE RECORDS SUMMARY | 2025-07-23 09:05 | XMS_ITS | Encounter Summary ---
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
--- OUTSIDE RECORDS SUMMARY | 2025-07-23 09:05 | XMS_ITS ---
Author Organization [facility] Address [address] [place] [address] Phone Care Team Providers Care Licensed Appraiser Name Role Phone Arvind Castellanos MD Primary Care Provider [phone] Active Problems Problem Noted Date Diagnosed Date [...]
--- OUTSIDE RECORDS SUMMARY | 2025-07-23 09:05 | XMS_ITS | Clinical Summary ---
Author Organization [facility] Address [address] [place] [address] Care Team Providers Care Senior Mobile Developer Name Role Phone Arvind Castellanos MD Primary Care Provider [phone] Patrick Perez MD Unavailable [phone] Allergies Active Allergy Reactions Criticality Noted Date [...] Type Department Care Team Description 07/15/2025 Telephone [facility] Medicine Oncology [address] [place] [address] [address] [place] [address] Sharmin De La Vega, RN 07/14/2025 9:30 AM CDT Infusion [facility] at [address] [place] [address] 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); Prostate cancer (HCC); 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) 07/14/2025 9:00 AM CDT Office Visit [facility] Medicine Oncology [address] [place] [address] [address] [place] [address] Gladis Savage NP 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); Prostate cancer (HCC); 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); Osteoporosis without current pathological fracture, unspecified osteoporosis type 07/14/2025 8:00 AM CDT Clinical Support [facility] at [address] [place], [place] [address] Prostate cancer (HCC); 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) 06/23/2025 9:30 AM CDT Infusion [facility] at [address] [place] [phone] 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); Prostate cancer (HCC); 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) 06/23/2025 9:00 AM CDT Office Visit [facility] [address] [place], [place] [address] [phone] Junaid Cifuentes MD PhD 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); Prostate cancer (HCC) 06/23/2025 8:00 AM CDT Clinical Support [facility] at [address] [place] [phone] Prostate cancer (HCC); 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) 06/16/2025 9:00 AM CDT Office Visit [facility] [address] [place] [address] [place] [phone] Gladis Savage NP 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); Prostate cancer (HCC) 06/16/2025 8:00 AM CDT Clinical Support [address] [place] [address] Prostate cancer (HCC); 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) 06/14/2025 Orders Only [facility] Scanning, Provider 06/11/2025 Telephone [facility] [address] [place], [place] [address] [phone] Tierney Magana RN 06/09/2025 Telephone [facility] [address] [place] [address] [address] [place], [place] [phone] Sharmin De La Vega, POLINA 06/07/2025 [facility] [address] [place], [place] [phone] Sharmin De La Vega, POLINA 06/04/2025 Telephone [facility] Medicine Oncology [address] [place] [address] [address] [place], [place] [phone] Yudith Orozco CMA 06/04/2025 [facility] Floor [address] [place] [phone] Sharmin De La Vega, POLINA 06/03/[address] [address] He Almaraz MD 06/03/2025 Telephone [facility] Medicine Oncology [facility] Floor [address] [place] [address] Radha Healy 05/27/2025 Telephone [facility] Medicine Oncology [address] [place] [address] [address] [place], [place] [phone] Alfonso Macias, POLINA 05/26/2025 9:30 AM CDT Infusion [facility] at [address] [place] [phone] 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); Prostate cancer (HCC); 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) 05/26/2025 9:00 AM CDT Office Visit [facility] Medicine Oncology [address] [place] [address] [address] [place], [place] [phone] Junaid Cifuentes MD PhD 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); Prostate cancer (HCC) 05/26/2025 8:00 AM CDT Clinical Support [facility] at [address] [place], [place] [phone] Prostate cancer (HCC); 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) 05/26/2025 Orders Only [facility] - Infusion [address] [facility] Floor [address] [place] [address] Rigoberto Walls [facility] 05/06/2025 Telephone [facility] Medicine Oncology [address] [place] [address] [address] [place] [address] Tierney Magana RN 05/05/2025 9:30 AM CDT Infusion [facility] at [address] [place] [address] 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); Prostate cancer (HCC) 05/05/2025 9:00 AM CDT Office Visit [facility] [address] [place] [address] [address] [place] [address] Gladis Savage, ALTON Prostate cancer (HCC); 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) 05/05/2025 8:00 AM CDT Clinical Support [facility] at [address] [place] [address] Prostate cancer (HCC); 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); Research study patient 05/05/2025 Documentation [facility] at [facility] [address] [facility] [place] [address] Maye Cottrell, BUFFY 05/03/2025 Orders Only [facility] [address] [place] [address] [address] [place] [address] Junaid Cifuentes MD PhD Research study patient 04/28/2025 7:42 AM CDT - 04/28/2025 11:59 PM CDT Hospital Encounter [facility] [address] [place] [address] Vida Weller, Paulette Perdomo RN Prostate cancer (HCC) Discharge Disposition: Discharge to home or self care 04/27/2025 Telephone [facility] [address] [place] [address] Padmini Webb RN from Last 3 Months [...] on file Legal Sex Male 4:46 AM 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 Testing performed by: [facility], [address] [place] [address] Blood 07/14/2025 7:48 AM CDT 07/14/2025 8:19 AM CDT Junaid Cifuentes MD PhD LAB BLOOD ORDERABLES Final Result [facility] [address] [place] [address] * (ABNORMAL) Differential, auto (07/14/2025 7:48 AM CDT) Neutrophil abs 12.29(H) 1.50 - 6.50 K/cumm Comment:Testing performed by : [facility], [address] [place] [address] Imm gran abs 0.07 0.00 - 0.10 K/cumm CERNER BJWCH Comment:Testing performed by : [facility], [address] [place] [address] Lymphocyte abs 0.64(L) 0.80 - 3.30 K/cumm GORAN B[facility]WCH Comment:Testing performed by : [facility], [address] [place] [address] Monocyte abs 0.76 0.20 - 0.80 K/cumm CERNER [facility] Comment:Testing performed by : [facility], [address] [place] [address] Eosinophil abs 0.01 0.00 - 0.50 K/cumm CERNICHOLE BJWCH Comment:Testing performed by : [facility], [address] [place] [address] Basophil abs 0.03 0.00 - 0.10 K/cumm CERNICHOLE B[facility]WCH Comment:Testing performed by : [facility], [address] [place] [address] Neutrophil pct 89.1 % CERNER [facility] Comment: Interpretive Data Percent cell count reference ranges are not reported, since discordance with absolute values may lead to misinterpretation of CBC data. Current Interpretive Data was last revised on 2017. Testing performed by: [facility], [facility], [address] [place] [address] Imm gran pct 0.5 % CERNER B[facility]WCH Comment: Interpretive Data Percent cell count reference ranges are not reported, since discordance with absolute values may lead to misinterpretation of CBC data. Current Interpretive Data was last revised on 2017. Testing performed by: [facility], [facility] 2, [address] [place] [address] Lymphocyte pct 4.6 % CERNER [facility] Comment: Interpretive Data Percent cell count reference ranges are not reported, since discordance with absolute values may lead to misinterpretation of CBC data. Current Interpretive Data was last revised on 2017. Testing performed by: [facility], [facility] 2, [address] [place] [address] Monocyte pct 5.5 % CERNER B[facility] Comment: Interpretive Data Percent cell count reference ranges are not reported, since discordance with absolute values may lead to misinterpretation of CBC data. Current Interpretive Data was last revised on 2017. Testing performed by: [facility], [facility] 2, [address] [place] [address] Eosinophil pct 0.1 % CERNER [facility] Comment: Interpretive Data Percent cell count reference ranges are not reported, since discordance with absolute values may lead to misinterpretation of CBC data. Current Interpretive Data was last revised on 2017. Testing performed by: [facility], [facility] 2, [address] [place] [address] Basophil pct 0.2 % CERNER B[facility] Comment: Interpretive Data Percent cell count reference ranges are not reported, since discordance with absolute values may lead to misinterpretation of CBC data. Current Interpretive Data was last revised on 2017. Testing performed by: [facility], [facility] 2, [address] [place] [address] Blood 07/14/2025 7:48 AM CDT 07/14/2025 7:50 AM CDT Junaid Cifuentes MD PhD LAB BLOOD ORDERABLES Final Result [facility] [address] [facility] Department [place] [address] * (ABNORMAL) CBC with auto differential (07/14/2025 7:48 AM CDT) WBC 13.80(H) 3.80 - 9.90 K/cumm Comment:Testing performed by : [facility], [address] [place] [address] Hgb 11.1(L) 13.0 - 17.5 g/dL GORAN YOUSSEFW Comment:Testing performed by : [place] [address], [address] [place] [address] Hct 34.8(L) 38.9 - 50.3 % GORAN RASHEED Comment:Testing performed by : [facility], [address] [place] [address] Plt 255 150 - 400 K/cumm [facility] Comment:Testing performed by : [place] [address], [address] [place] [address] MPV 10.0 9.1 - 12.3 fL GORAN YOUSSEFW Comment:Testing performed by : [facility], [address] [place] [address] RBC 3.81(L) 4.30 - 5.80 M/cumm GORAN RASHEEDCH Comment:Testing performed by : [facility], [address] [place] [address] MCV 91.3 81.3 - 96.4 fL CERNICHOLE BJWCH Comment:Testing performed by : [facility], [facility] 2, [address] [place] [address] MCH 29.1 27.1 - 33.3 pg GORAN HELM Comment:Testing performed by : [facility], [facility] 2, [address] [place] [address] MCHC 31.9(L) 32.3 - 35.7 g/dL GORAN HELM Comment:Testing performed by : [facility], [facility] 2, [address] [place] [address] RDW CV 14.6 11.1 - 14.9 % GORAN HELM Comment:Testing performed by : [facility], [address] [place] [address] RDW SD 48.0 35.7 - 48.1 fL GORAN HELM Comment:Testing performed by : [facility], [facility] 2, [address] [place] [address] ANC Prelim 12.29(H) 1.50 - 6.50 K/cumm GORAN HELM Comment: Interpretive Data The rapid ANC is a preliminary automated count and may vary from the final ANC (Neut Abs) reported in the WBC differential that follows. Current interpretive data was last revised 2024. Testing performed by: [facility], [facility] 2, [address] [place] [address] Blood 07/14/2025 7:48 AM CDT 07/14/2025 7:50 AM CDT us Junaid Cifuentes MD PhD LAB BLOOD ORDERABLES Final Result [facility] [address] [facility] [employer] [place], [place] [id number] * (ABNORMAL) PSA diagnostic (07/14/2025 7:48 AM [...] data last revised 22. Testing performed by: [facility], [address] [place] [address] Blood 07/14/2025 7:48 AM CDT 07/14/2025 8:19 AM CDT Junaid Cifuentes MD PhD LAB BLOOD ORDERABLES Final Result [facility] [address] Department [place] [address] * (ABNORMAL) Comprehensive metabolic panel (07/14/2025 7:48 AM CDT) Sodium 143 135 - 145 mmol/L Comment:Testing performed by : [facility], [address], [place] [address] Potassium, pl 4.3 3.3 - 4.9 mmol/L CERNICHOLE BJWCH Comment:Testing performed by : [facility], [address], [place] [address] Chloride 106 97 - 110 mmol/L CERNICHOLE BJWCH Comment:Testing performed by : [facility], [address] [place] [address] CO2 27 22 - 32 mmol/L CERNICHOLE BJWCH Comment:Testing performed by : [facility], [address] [place] [address] Anion gap 10 2 - 15 mmol/L GORAN BJWCH Comment:Testing performed by : [facility], [address] [place] [address] BUN 27(H) 6 - 25 mg/dL CERNICHOLE BJWCH Comment:Testing performed by : [facility], [address], [place] [address] Creatinine 0.71(L) 0.80 - 1.30 mg/dL CERNER BJWCH Comment:Testing performed by : [facility], [address], [place] [address] Glucose 125 70 - 199 mg/dL CERNER [...] was last revised 2022. Testing performed by: [facility], [address], [place] [address] Calcium 9.5 8.5 - 10.3 mg/dL CERNER BJWCH Comment:Testing performed by : [facility], [address], [place] [address] Bilirubin, total 0.2 0.1 - 1.2 mg/dL CERNER BJWCH Comment:Testing performed by : [facility], [address], [place] [address] Protein, pl 6.1(L) 6.5 - 8.5 g/dL CERNER BJWCH Comment:Testing performed by : [facility], [address], [place] [address] Albumin 3.8 3.5 - 5.0 g/dL CERNER BJWCH Comment:Testing performed by : [facility], [address], [place] [address] Alk phos 78 40 - 130 Units/L CERNER BJWCH Comment:Testing performed by : [facility], [address], [place] [address] ALT 14 7 - 55 Units/L CERNER B[facility]WCH Comment:Testing performed by : [facility], [address] [place] [address] AST 16 10 - 50 Units/L GORAN HELM Comment:Testing performed by : [facility], [address] [place] [address] Blood 07/14/2025 7:48 AM CDT 07/14/2025 8:19 AM CDT Junaid Cifuentes MD PhD LAB BLOOD ORDERABLES Final Result Performing Organization Address [facility] Co de Phone Number [facility] [address] Department [place] [address] * eGFR (06/23/2025 8:10 AM CDT) eGFR [...] was last reviewed 2021. Testing performed by: [facility], [address] [place] [address] Blood 06/23/2025 8:10 AM CDT 06/23/2025 8:44 AM CDT us Junaid Cifuentes MD PhD LAB BLOOD ORDERABLES Final Result Performing Organization Address City/[facility]/ZIP Co de Phone Number [facility] [address] Department [place] [address] * (ABNORMAL) Differential, auto (06/23/2025 8:10 AM CDT) Neutrophil abs 7.77(H) 1.50 - 6.50 K/cumm Comment:Testing performed by : [place] [address], [address] [place] [address] Imm gran abs 0.05 0.00 - 0.10 K/cumm CERNER [facility] Comment:Testing performed by : [place] [address], [address] [place] [address] Lymphocyte abs 0.51(L) 0.80 - 3.30 K/cumm CERNER [facility] Comment:Testing performed by : [place] [address], [address] [place] [address] Monocyte abs 0.45 0.20 - 0.80 K/cumm CERNER [facility] Comment:Testing performed by : [place] [address], [address] [place] [address] Eosinophil abs 0.01 0.00 - 0.50 K/cumm CERNER [facility]WCH Comment:Testing performed by : [facility], [address] [place] [address] Basophil abs 0.02 0.00 - 0.10 K/cumm CERNER BJWCH Comment:Testing performed by : [place] [address], [address] [place] [address] Neutrophil pct 88.2 % CERNER BJWCH Comment: Interpretive Data Percent cell count reference ranges are not reported, since discordance with absolute values may lead to misinterpretation of CBC data. Current Interpretive Data was last revised on 2017. Testing performed by: [facility], [address] [place] [address] Imm gran pct 0.6 % CERNER BJWCH Comment: Interpretive Data Percent cell count reference ranges are not reported, since discordance with absolute values may lead to misinterpretation of CBC data. Current Interpretive Data was last revised on 2017. Testing performed by: [facility], [facility] 2, [address] [place] [address] Lymphocyte pct 5.8 % CERNICHOLE HELM Comment: Interpretive Data Percent cell count reference ranges are not reported, since discordance with absolute values may lead to misinterpretation of CBC data. Current Interpretive Data was last revised on 2017. Testing performed by: [facility], [facility] 2, [address] [place] [address] Monocyte pct 5.1 % CERNICHOLE HELM Comment: Interpretive Data Percent cell count reference ranges are not reported, since discordance with absolute values may lead to misinterpretation of CBC data. Current Interpretive Data was last revised on 2017. Testing performed by: [facility], [facility] 2, [address] [place] [address] Eosinophil pct 0.1 % CERNICHOLE YOUSSEFESTEBAN Comment: Interpretive Data Percent cell count reference ranges are not reported, since discordance with absolute values may lead to misinterpretation of CBC data. Current Interpretive Data was last revised on 2017. Testing performed by: [facility], [facility] 2, [address] [place] [address] Basophil pct 0.2 % GORAN HELM Comment: Interpretive Data Percent cell count reference ranges are not reported, since discordance with absolute values may lead to misinterpretation of CBC data. Current Interpretive Data was last revised on 2017. Testing performed by: [facility], [facility] 2, [address] [place] [address] Blood 06/23/2025 8:10 AM CDT 06/23/2025 8:15 AM CDT us Junaid Cifuentes MD PhD LAB BLOOD ORDERABLES Final Result GORAN YOUSSEFCH [address] [facility] [place] [address] * Iron profile w/ IBC (06/23/2025 8:10 AM CDT) [facility] Iron 68 50 - 150 mcg/dL Comment:Testing performed by : [facility], [address] [place] [address]., [address] TIBC 251 250 - 400 mcg/dL GORAN HELM Comment:Testing performed by : [facility], [address] [place] [address]., [address] Transferrin saturation 27 20 - 50 % GORAN HELM Comment:Testing performed by : [facility], [address] [place] [address]., [address] Blood 06/23/2025 8:10 AM CDT 06/23/2025 10:04 AM CDT Gladis Savage STRUCTURAL [employer]ELDER LAB BLOOD ORDERABLES Final Result Performing Organization Address City/State/[facility] Co de Phone Number GORAN HELM [address] [facility] Department [place] [address] * (ABNORMAL) CBC with auto differential (06/23/2025 8:10 AM CDT) [facility] WBC 8.81 3.80 - 9.90 K/cumm Comment:Testing performed by : [facility], [address] [place] [address] Hgb 11.7(L) 13.0 - 17.5 g/dL GORAN HELM Comment:Testing performed by : [facility], [address] [place] [address] Hct 36.7(L) 38.9 - 50.3 % GORAN HELM Comment:Testing performed by : [facility], [facility] 2, [address] [place] [address] Plt 298 150 - 400 K/cumm GORAN HELM Comment:Testing performed by : [facility], [address] [place] [address] MPV 9.8 9.1 - 12.3 fL CERNER BJWCH Comment:Testing performed by : [place] [address], [address] [place] [address] RBC 4.10(L) 4.30 - 5.80 M/cumm CERNER BJWCH Comment:Testing performed by : [place] [address] [place] [address] MCV 89.5 81.3 - 96.4 fL CERNER BJWCH Comment:Testing performed by : [place] [address] [place] [address] MCH 28.5 27.1 - 33.3 pg CERNER BJWCH Comment:Testing performed by : [place] [address] [place] [address] MCHC 31.9(L) 32.3 - 35.7 g/dL CERNER BJWCH Comment:Testing performed by : [place] [address] [place] [address] RDW CV 13.8 11.1 - 14.9 % CERNER BJWCH Comment:Testing performed by : [address] [place] [address] RDW SD 45.0 35.7 - 48.1 fL CERNER BJWCH Comment:Testing performed by : [place] [address] [place] [address] ANC Prelim 7.77(H) 1.50 - 6.50 K/cumm CERNER BJWCH Comment: Interpretive Data The rapid ANC is a preliminary automated count and may vary from the final ANC (Neut Abs) reported in the WBC differential that follows. Current interpretive data was last revised 2024. Testing performed by: [place] [address] [place] [address] Blood 06/23/2025 8:10 AM CDT 06/23/2025 8:15 AM CDT Junaid Cifuentes MD PhD LAB BLOOD ORDERABLES Final Result Performing Organization Address City/[facility]/ZIP Co de Phone Number GORAN [facility] [address] [facility]. [facility] [place] [address] * (ABNORMAL) PSA diagnostic (06/23/2025 8:10 AM [...] data last revised 22. Testing performed by: [facility], [address] [facility], [place] [address] Blood 06/23/2025 8:10 AM CDT 06/23/2025 8:44 AM CDT Gladis Savage NP LAB BLOOD ORDERABLES Final Result Performing Organization Address [facility] de Phone Number GORAN YOUSSEFCH [address] [facility]. [facility] [place] [address] * Ferritin (06/23/2025 8:10 AM CDT) Ferritin 239 30 - 400 ng/mL Comment:Testing performed by : [facility], [facility], [place]., [address] Blood 06/23/2025 8:10 AM CDT 06/23/2025 10:04 AM CDT Gladis Savage [employer]ELDER LAB BLOOD ORDERABLES Final Result Performing Organization Address City/[facility] Co de Phone Number [facility] [address] Department [place] [address] * (ABNORMAL) Comprehensive metabolic panel (06/23/2025 8:10 AM CDT) Sodium 142 135 - 145 mmol/L Comment:Testing performed by : [facility], [address], [place] [address] Potassium, pl 4.2 3.3 - 4.9 mmol/L CERNER BJWCH Comment:Testing performed by : [facility], [address], [place] [address] Chloride 104 97 - 110 mmol/L CERNER BJWCH Comment:Testing performed by : [facility], [address], [place] [address] CO2 30 22 - 32 mmol/L CERNER BJWCH Comment:Testing performed by : [facility], [address], [place] [address] Anion gap 8 2 - 15 mmol/L CERNER BJWCH Comment:Testing performed by : [facility], [address], [place] [address] BUN 23 6 - 25 mg/dL CERNER BJWCH Comment:Testing performed by : [facility], [address], [place] [address] Creatinine 0.71(L) 0.80 - 1.30 mg/dL CERNER BJWCH Comment:Testing performed by : [facility], [address], [place] [address] Glucose 124 70 - 199 mg/dL CERNER [...] was last revised 2022. Testing performed by: [facility], [address], [place] [address] Calcium 9.8 8.5 - 10.3 mg/dL CERNER BJWCH Comment:Testing performed by : [facility], [address], [place] [address] Bilirubin, total 0.3 0.1 - 1.2 mg/dL CERNER BJWCH Comment:Testing performed by : [facility], [address], [place] [address] Protein, pl 6.5 6.5 - 8.5 g/dL CERNER BJWCH Comment:Testing performed by : [facility], [address], [place] [address] Albumin 4.1 3.5 - 5.0 g/dL CERNER BJWCH Comment:Testing performed by : [facility], [address], [place] [address] Alk phos 68 40 - 130 Units/L CERNER BJWCH Comment:Testing performed by : [facility], [address], [place] [address] ALT 12 7 - 55 Units/L CERNER BJWCH Comment:Testing performed by : [facility], [address], [place] [address] AST 18 10 - 50 Units/L CERNER BJWCH Comment:Testing performed by : [facility], [address], [place] [address] Blood 06/23/2025 8:10 AM CDT 06/23/2025 8:44 AM CDT us Junaid Cifuentes MD PhD LAB BLOOD ORDERABLES Final Result GORAN BJW[facility] [address] Department [place] [address] * eGFR (06/16/2025 8:12 AM CDT) eGFR [...] was last reviewed 2021. Testing performed by: [facility], [address] [place] [address] Blood 06/16/2025 8:12 AM CDT 06/16/2025 8:46 AM CDT us Junaid Cifuentes MD PhD LAB BLOOD ORDERABLES Final Result [facility] [address] Department [place] [address] * (ABNORMAL) Differential, auto (06/16/2025 8:12 AM CDT) Neutrophil abs 10.94(H) 1.50 - 6.50 K/cumm Comment:Testing performed by : [facility], [facility], [address] [place] [address] Imm gran abs 0.10 0.00 - 0.10 K/cumm GORAN HELM Comment:Testing performed by : [facility], [facility], [address] [place] [address] Lymphocyte abs 0.67(L) 0.80 - 3.30 K/cumm GORAN HELM Comment:Testing performed by : [facility], [facility] 2, [address], [place] [address] Monocyte abs 0.87(H) 0.20 - 0.80 K/cumm CERNER BJWCH Comment:Testing performed by : [facility], [facility] 2, [address] [place] [address] Eosinophil abs 0.00 0.00 - 0.50 K/cumm CERNER BJWCH Comment:Testing performed by : [facility], [facility] 2, [address], [place] [address] Basophil abs 0.02 0.00 - 0.10 K/cumm CERNER BJWCH Comment:Testing performed by : [facility], [facility] 2, [address] [place] [address] Neutrophil pct 86.8 % CERNER BJWCH Comment: Interpretive Data Percent cell count reference ranges are not reported, since discordance with absolute values may lead to misinterpretation of CBC data. Current Interpretive Data was last revised on 2017. Testing performed by: [facility], [facility] 2, [address] [place] [address] Imm gran pct 0.8 % CERNER BJWCH Comment: Interpretive Data Percent cell count reference ranges are not reported, since discordance with absolute values may lead to misinterpretation of CBC data. Current Interpretive Data was last revised on 2017. Testing performed by: [facility], [facility] 2, [address], [place] [address] Lymphocyte pct 5.3 % CERNER BJWCH Comment: Interpretive Data Percent cell count reference ranges are not reported, since discordance with absolute values may lead to misinterpretation of CBC data. Current Interpretive Data was last revised on 2017. Testing performed by: [facility], [facility] 2, [address] [place] [address] Monocyte pct 6.9 % CERNER BJWCH Comment: Interpretive Data Percent cell count reference ranges are not reported, since discordance with absolute values may lead to misinterpretation of CBC data. Current Interpretive Data was last revised on 2017. Testing performed by: [facility], [facility] 2, [address] [place] [address] Eosinophil pct 0.0 % GORAN HELM Comment: Interpretive Data Percent cell count reference ranges are not reported, since discordance with absolute values may lead to misinterpretation of CBC data. Current Interpretive Data was last revised on 2017. Testing performed by: [facility], [address] [place] [address] Basophil pct 0.2 % GORAN HELM Comment: Interpretive Data Percent cell count reference ranges are not reported, since discordance with absolute values may lead to misinterpretation of CBC data. Current Interpretive Data was last revised on 2017. Testing performed by: [facility], [address] [place] [address] Blood 06/16/2025 8:1 2 AM CDT 06/16/2025 8:20 AM CDT Junaid Cifuentes MD PhD LAB BLOOD ORDERABLES Final Result GORAN [facility] [address] [facility] Department [place] [address] * (ABNORMAL) CBC with auto differential (06/16/2025 8:12 AM CDT) WBC 12.60(H) 3.80 - 9.90 K/cumm Comment:Testing performed by : [facility], [facility] 2, [address] [place] [address] Hgb 10.8(L) 13.0 - 17.5 g/dL GORAN HELM Comment:Testing performed by : [facility], [address] [place] [address] Hct 33.7(L) 38.9 - 50.3 % GORAN HELM Comment:Testing performed by : [facility], [address] [place] [address] Plt 299 150 - 400 K/cumm CERNER BJWCH Comment:Testing performed by : [place] [address], [address] [place] [address] MPV 10.3 9.1 - 12.3 fL CERNER BJWCH Comment:Testing performed by : [place] [address], [address] [place] [address] RBC 3.73(L) 4.30 - 5.80 M/cumm CERNER BJWCH Comment:Testing performed by : [place] [address], [address], [place] [address] MCV 90.3 81.3 - 96.4 fL CERNER BJWCH Comment:Testing performed by : [place] [address], [address], [place] [address] MCH 29.0 27.1 - 33.3 pg CERNICHOLE BJWCH Comment:Testing performed by : [place] [address], [address], [place] [address] MCHC 32.0(L) 32.3 - 35.7 g/dL CERNER BJWCH Comment:Testing performed by : [place] [address], [address] [place] [address] RDW CV 13.2 11.1 - 14.9 % CERNICHOLE BJWCH Comment:Testing performed by : [address] [place] [address] RDW SD 43.7 35.7 - 48.1 fL CERNER BJWCH Comment:Testing performed by : [place] [address], [address], [place] [address] ANC Prelim 10.94(H) 1.50 - 6.50 K/cumm CERNER BJWCH Comment: Interpretive Data The rapid ANC is a preliminary automated count and may vary from the final ANC (Neut Abs) reported in the WBC differential that follows. Current interpretive data was last revised 2024. Testing performed by: [place] [address], [address] [place] [address] Blood 06/16/2025 8:12 AM CDT 06/16/2025 8:20 AM CDT Junaid Cifuentes MD PhD LAB BLOOD ORDERABLES Final Result Performing Organization Address [facility] Co de Phone Number GORAN YOUSSEFCH [address] [facility]. [place] [address] * (ABNORMAL) PSA diagnostic (06/16/2025 8:12 AM [...] data last revised 22. Testing performed by: [facility], [address] [place] [address] Blood 06/16/2025 8:12 AM CDT 06/16/2025 8:46 AM CDT Junaid Cifuentes MD PhD LAB BLOOD ORDERABLES Final Result Performing Organization Address [facility] Co de Phone Number GORAN YOUSSEFWCH [address] [address] * (ABNORMAL) Comprehensive metabolic panel (06/16/2025 8:12 AM CDT) Sodium 141 135 - 145 mmol/L Comment:Testing performed by : [facility], [address] [place] [address] Potassium, pl 4.2 3.3 - 4.9 mmol/L GORAN HELM Comment:Testing performed by : [facility], [address], [place] [address] Chloride 103 97 - 110 mmol/L CERNER BJWCH Comment:Testing performed by : [facility], [address], [place] [address] CO2 29 22 - 32 mmol/L CERNER BJWCH Comment:Testing performed by : [facility], [address], [place] [address] Anion gap 9 2 - 15 mmol/L CERNER BJWCH Comment:Testing performed by : [facility], [address], [place] [address] BUN 22 6 - 25 mg/dL CERNER BJWCH Comment:Testing performed by : [facility], [address], [place] [address] Creatinine 0.72(L) 0.80 - 1.30 mg/dL CERNER BJWCH Comment:Testing performed by : [facility], [address], [place] [address] Glucose 133 70 - 199 mg/dL CERNER [...] was last revised 2022. Testing performed by: [facility], [address], [place] [address] Calcium 9.2 8.5 - 10.3 mg/dL CERNER BJWCH Comment:Testing performed by : [facility], [address], [place] [address] Bilirubin, total 0.2 0.1 - 1.2 mg/dL CERNER BJWCH Comment:Testing performed by : [facility], [address], [place] [address] Protein, pl 6.0(L) 6.5 - 8.5 g/dL CERNER BJWCH Comment:Testing performed by : [facility], [address], [place] [address] Albumin 3.8 3.5 - 5.0 g/dL CERNER BJWCH Comment:Testing performed by : [facility], [address], [place] [address] Alk phos 67 40 - 130 Units/L CERNER BJWCH Comment:Testing performed by : [facility], [address], [place] [address] ALT 12 7 - 55 Units/L CERNER BJWCH Comment:Testing performed by : [facility], [address], [place] [address] AST 17 10 - 50 Units/L CERNER BJWCH Comment:Testing performed by : [facility], [address], [place] [address] Blood 06/16/2025 8:12 AM CDT 06/16/2025 8:46 AM CDT Junaid Cifuentes MD PhD LAB BLOOD ORDERABLES Final Result GORAN YOUSSEFWCH [address] Department [place] [address] * SCAN - RADIOLOGY/IMAGING (06/14/2025) Anatomical Region [...] was last reviewed 2021. Testing performed by: [facility], [address] [place] [address] Blood 05/26/2025 7:55 AM CDT 05/26/2025 8:23 AM CDT us Junaid Cifuentes MD PhD LAB BLOOD ORDERABLES Final Result [facility] [address] Department of Laboratories [place] [phone] * (ABNORMAL) Differential, auto (05/26/2025 7:55 AM CDT) Neutrophil abs 7.67(H) 1.50 - 6.50 K/cumm Comment:Testing performed by : [facility], [facility] 2, [address] [place] [address] Imm gran abs 0.04 0.00 - 0.10 K/cumm GORAN HELM Comment:Testing performed by : [facility], [address] [place] [address] Lymphocyte abs 0.99 0.80 - 3.30 K/cumm GORAN HELM Comment:Testing performed by : [facility], [address] [place] [address] Monocyte abs 0.58 0.20 - 0.80 K/cumm GORAN HELM Comment:Testing performed by : [facility], [address] [place] [address] Eosinophil abs 0.00 0.00 - 0.50 K/cumm CERNER BJWCH Comment:Testing performed by : [facility], [facility] 2, [address] [place] [address] Basophil abs 0.02 0.00 - 0.10 K/cumm CERNER BJWCH Comment:Testing performed by : [facility], [facility] 2, [address] [place] [address] Neutrophil pct 82.6 % CERNER BJWCH Comment: Interpretive Data Percent cell count reference ranges are not reported, since discordance with absolute values may lead to misinterpretation of CBC data. Current Interpretive Data was last revised on 2017. Testing performed by: [facility], [facility] 2, [address] [place] [address] Imm gran pct 0.4 % CERNER BJWCH Comment: Interpretive Data Percent cell count reference ranges are not reported, since discordance with absolute values may lead to misinterpretation of CBC data. Current Interpretive Data was last revised on 2017. Testing performed by: [facility], [facility] 2, [address] [place] [address] Lymphocyte pct 10.6 % CERNER BJWCH Comment: Interpretive Data Percent cell count reference ranges are not reported, since discordance with absolute values may lead to misinterpretation of CBC data. Current Interpretive Data was last revised on 2017. Testing performed by: [facility], [address] [place] [address] Monocyte pct 6.2 % CERNER BJWCH Comment: Interpretive Data Percent cell count reference ranges are not reported, since discordance with absolute values may lead to misinterpretation of CBC data. Current Interpretive Data was last revised on 2017. Testing performed by: [facility], [facility] 2, [address] [place] [address] Eosinophil pct 0.0 % CERNER BJWCH Comment: Interpretive Data Percent cell count reference ranges are not reported, since discordance with absolute values may lead to misinterpretation of CBC data. Current Interpretive Data was last revised on 2017. [facility]: [facility], [address] [place] [address] Basophil pct 0.2 % GORAN HELM Comment: Interpretive Data Percent cell count reference ranges are not reported, since discordance with absolute values may lead to misinterpretation of CBC data. Current Interpretive Data was last revised on 2017. Testing performed by: [facility], [address] [place] [address] Blood 05/26/2025 7:55 AM CDT 05/26/2025 7:56 AM CDT us Junaid Cifuentes MD PhD LAB BLOOD ORDERABLES Final Result GORAN HELM [address] [facility]. Department [place] [address] * (ABNORMAL) CBC with auto differential (05/26/2025 7:55 AM CDT) WBC 9.30 3.80 - 9.90 K/cumm Comment:Testing performed by : [facility], [address] [place] [address] Hgb 14.1 13.0 - 17.5 g/dL GORAN HELM Comment:Testing performed by : [address] [place] [address] Hct 43.1 38.9 - 50.3 % GORAN HELM Comment:Testing performed by : [place] [address], [address] [place] [address] Plt 211 150 - 400 K/cumm GORAN HELM Comment:Testing performed by : [place] [address], [address] [place] [address] MPV 10.1 9.1 - 12.3 fL GORAN HELM Comment:Testing performed by : [place] [address], [address] [place] [address] RBC 4.81 4.30 - 5.80 M/cumm [facility] Comment:Testing performed by : [facility], [facility] 2, [address] [place] [address] MCV 89.6 81.3 - 96.4 fL [facility] Comment:Testing performed by : [facility], [facility] 2, [address] [place] [address] MCH 29.3 27.1 - 33.3 pg [facility] Comment:Testing performed by : [facility], [facility] 2, [address] [place] [address] MCHC 32.7 32.3 - 35.7 g/dL [facility] Comment:Testing performed by : [facility], [facility] 2, [address] [place] [address] RDW CV 12.7 11.1 - 14.9 % [facility] Comment:Testing performed by : [facility], [address] [place] [address] RDW SD 41.5 35.7 - 48.1 fL [facility] Comment:Testing performed by : [facility], [facility] 2, [address] [place] [address] ANC Prelim 7.67(H) 1.50 - 6.50 K/cumm [facility] Comment: Interpretive Data The rapid ANC is a preliminary automated count and may vary from the final ANC (Neut Abs) reported in the WBC differential that follows. Current interpretive data was last revised 2024. Testing performed by: [facility], [facility] 2, [address] [place] [address] Blood 05/26/2025 7:55 AM CDT 05/26/2025 7:56 AM CDT us Junaid Cifuentes MD PhD LAB BLOOD ORDERABLES Final Result [facility] [address] [facility] [place] [place], [place] [id number] * 1,25 Dihydroxycholecalciferol (05/26/2025 7:55 AM CDT) Pathologist [facility] 1-25-di-OH Vit D 35 18 - 64 pg/mL [facility] Comment: ADDITIONAL INFORMATION This test was developed and its performance characteristics determined by [facility] in a manner consistent with CLIA requirements. This test has not been cleared or approved by the U.S. Food and Drug Administration. Test Performed by: [facility] [address] [place] [address] Perioperative Nurse: Angelique Gomez Ph.D.; CLIA# [id number] Testing performed by: [facility], [address] [place] [address] Blood 05/26/2025 7:55 AM CDT 05/26/2025 10:06 AM CDT us Junaid Cifuentes MD PhD LAB BLOOD ORDERABLES Final Result GORAN BJWCH [address] Department [place] [address] [facility] * (ABNORMAL) PSA diagnostic (05/26/2025 7:55 AM CDT) Pathologist [facility] PSA-Total 47.94(H) <=6.20 ng/mL Comment: Interpretive Data [...] data last revised 22. Testing performed by: [facility], [address], [place] [address] Blood 05/26/2025 7:55 AM CDT 05/26/2025 8:23 AM CDT us Junaid Cifuentes MD PhD LAB BLOOD ORDERABLES Final Result GORAN [facility] [address] [place] [address] * (ABNORMAL) Comprehensive metabolic panel (05/26/2025 7:55 AM CDT) Sodium 141 135 - 145 mmol/L Comment:Testing performed by : [facility], [address], [place] [address] Potassium, pl 4.3 3.3 - 4.9 mmol/L CERNICHOLE BJWCH Comment:Testing performed by : [facility], [address], [place] [address] Chloride 101 97 - 110 mmol/L CERNICHOLE BJWCH Comment:Testing performed by : [facility], [address], [place] [address] CO2 30 22 - 32 mmol/L CERNICHOLE BJWCH Comment:Testing performed by : [facility], [address], [place] [address] Anion gap 10 2 - 15 mmol/L CERNICHOLE BJWCH Comment:Testing performed by : [facility], [address], [place] [address] BUN 22 6 - 25 mg/dL CERNICHOLE BJWCH Comment:Testing performed by : [facility], [address], [place] [address] Creatinine 0.90 0.80 - 1.30 mg/dL CERNER BJWCH Comment:Testing performed by : [facility], [address], [place] [address] Glucose 152 70 - 199 mg/dL CERNER [...] was last revised 2022. Testing performed by: [facility], [address], [place] [address] Calcium 9.6 8.5 - 10.3 mg/dL CERNER BJWCH Comment:Testing performed by : [facility], [address], [place] [address] Bilirubin, total 0.3 0.1 - 1.2 mg/dL CERNER BJWCH Comment:Testing performed by : [facility], [address], [place] [address] Protein, pl 6.4(L) 6.5 - 8.5 g/dL CERNER BJWCH Comment:Testing performed by : [facility], [address], [place] [address] Albumin 4.4 3.5 - 5.0 g/dL CERNER BJWCH Comment:Testing performed by : [facility], [address], [place] [address] Alk phos 76 40 - 130 Units/L CERNER BJWCH Comment:Testing performed by : [facility], [address], [place] [address] ALT 19 7 - 55 Units/L CERNER BJWCH Comment:Testing performed by : [facility], [address], [place] [address] AST 18 10 - 50 Units/L CERNER BJWCH Comment:Testing performed by : [facility], [address], [place] [address] Blood 05/26/2025 7:55 AM CDT 05/26/2025 8:23 AM CDT Junaid Cifuentes MD PhD LAB BLOOD ORDERABLES Edited Result - Final GORAN HELM [address] Department of Laboratories [place], [place] [id number] * (ABNORMAL) Urinalysis reflex to microscopic (05/05/2025 8:30 AM CDT) Color, ur Straw Yellow Comment:Testing performed by : [facility], [address], [place] [address] Clarity, ur Clear Clear CERNICHOLE BJWCH Comment:Testing performed by : [facility], [address], [place] [address] Specific gravity, ur 1.022 1.003 - 1.030 GORAN BJWCH Comment:Testing performed by : [facility], [address], [place] [address] pH, urine 6.0 GORAN BJWCH Comment: Interpretive Data U rine pH is affected by diet, medications, systemic acid-base disturbances, and renal tubular function. pH may affect urinary stone formation. For example, urine pH below 6.0 may help reduce the tendency for calcium phosphate stones and pH greater than 6.0 may reduce the tendency for uric acid stone formation. Source: [facility] Current Interpretive Data was last revised on 2017 Testing performed by: [facility], [address], [place] [address] Protein, ur ql 1+(A) Negative CERNER BJWCH Comment:Testing performed by : [facility], [address], [place] [address] Glucose, ur ql Negative Negative CERNER BJWCH Comment:Testing performed by : [facility], [address], [place] [address] Ketones, ur Negative Negative CERNER BJWCH Comment:Testing performed by : [facility], [address], [place] [address] Bilirubin, ur Negative Negative CERNER BJWCH Comment:Testing performed by : [facility], [address], [place] [address] Blood, ur 2+(A) Negative CERNER BJWCH Comment:Testing performed by : [facility], [address], [place] [address] Urobilinogen, ur <2.0 <2.0 mg/dL GORAN HELM Comment:Testing performed by : [facility], [address], [place] [address] Nitrite, ur Negative Negative GORAN HELM Comment:Testing performed by : [facility], [address], [place] [address] Leukocyte esterase, ur Negative Negative GORAN HELM Comment:Testing performed by : [facility], [address], [place] [address] UA reflex comment Reflex to microscopic UA will be performed. GORAN HELM Comment:Testing performed by : [facility], [address], [place] [address] Urine 05/05/2025 8:30 AM CDT 05/05/2025 9:20 AM CDT Junaid Cifuentes MD PhD LAB URINE ORDERABLES Final Result GORAN HELM [address] Department [place] [address] * (ABNORMAL) Urinalysis, microscopic only (05/05/2025 8:30 AM CDT) WBC, ur 0-5 0 - 5 /HPF Comment:Testing performed by : [facility], [address], [place] [address] RBC, ur 6-10(A) 0 - 2 /HPF GORAN HELM Comment:Testing performed by : [facility], [address], [place] [address] Mucous, ur Present(A) GORAN HELM Comment:Testing performed by : [facility], [address], [place] [address] Urine 05/05/2025 8:30 AM CDT 05/05/2025 9:20 AM CDT Junaid Cifuentes MD PhD LAB URINE ORDERABLES Final Result Performing Organization Address [facility] Co de Phone Number GORAN HELM [address] [facility]. [place] [address] * eGFR (05/05/2025 8:28 AM CDT) eGFR [...] was last reviewed 2021. Testing performed by: [facility], [address] [place] [address], [place] [address] Blood 05/05/2025 8:28 AM CDT 05/05/2025 8:49 AM CDT Junaid Cifuentes MD PhD LAB BLOOD ORDERABLES Final Result Performing Organization Address City/[facility] Co de Phone Number GORAN YOUSSEFWCH [address] [facility]. [place] [address] * (ABNORMAL) Differential, auto (05/05/2025 8:28 AM CDT) Neutrophil abs 5.58 1.50 - 6.50 K/cumm Comment:Testing performed by : [facility], [address], [address] [place] [address] Imm gran abs 0.03 0.00 - 0.10 K/cumm CERNER BJWCH Comment:Testing performed by : [facility], [facility] 2, [address] [place] [address] Lymphocyte abs 0.47(L) 0.80 - 3.30 K/cumm CERNER BJWCH Comment:Testing performed by : [facility], [facility] 2, [address] [place] [address] Monocyte abs 0.38 0.20 - 0.80 K/cumm CERNER BJWCH Comment:Testing performed by : [facility], [facility] 2, [address] [place] [address] Eosinophil abs 0.01 0.00 - 0.50 K/cumm CERNER BJWCH Comment:Testing performed by : [facility], [address] [place] [address] Basophil abs 0.01 0.00 - 0.10 K/cumm CERNER BJWCH Comment:Testing performed by : [facility], [facility] 2, [address] [place] [address] Neutrophil pct 85.9 % CERNER BJWCH Comment: Interpretive Data Percent cell count reference ranges are not reported, since discordance with absolute values may lead to misinterpretation of CBC data. Current Interpretive Data was last revised on 2017. Testing performed by: [facility], [facility] 2, [address] [place] [address] Imm gran pct 0.5 % CERNER BJWCH Comment: Interpretive Data Percent cell count reference ranges are not reported, since discordance with absolute values may lead to misinterpretation of CBC data. Current Interpretive Data was last revised on 2017. Testing performed by: [facility], [facility] 2, [address] [place] [address] Lymphocyte pct 7.3 % CERNER BJWCH Comment: Interpretive Data Percent cell count reference ranges are not reported, since discordance with absolute values may lead to misinterpretation of CBC data. Current Interpretive Data was last revised on 2017. Testing performed by: [facility], [facility] 2, [address] [place] [address] Monocyte pct 5.9 % GORAN HELM Comment: Interpretive Data Percent cell count reference ranges are not reported, since discordance with absolute values may lead to misinterpretation of CBC data. Current Interpretive Data was last revised on 2017. Testing performed by: [facility], [facility] 2, [address] [place] [address] Eosinophil pct 0.2 % GORAN HELM Comment: Interpretive Data Percent cell count reference ranges are not reported, since discordance with absolute values may lead to misinterpretation of CBC data. Current Interpretive Data was last revised on 2017. Testing performed by: [facility], [facility] 2, [address] [place] [address] Basophil pct 0.2 % GORAN HELM Comment: Interpretive Data Percent cell count reference ranges are not reported, since discordance with absolute values may lead to misinterpretation of CBC data. Current Interpretive Data was last revised on 2017. Testing performed by: [facility], [facility] 2, [address] [place] [address] Blood 05/05/2025 8:28 AM CDT 05/05/2025 8:34 AM CDT Junaid Cifuentes MD PhD LAB BLOOD ORDERABLES Final Result [facility] [address] [facility] Department [place] [address] * CBC with auto differential (05/05/2025 8:28 AM CDT) WBC 6.48 3.80 - 9.90 K/cumm Comment:Testing performed by : [facility], [facility] 2, [address] [place] [address] Hgb 13.5 13.0 - 17.5 g/dL CERNER BJWCH Comment:Testing performed by : [facility], [facility] 2, [address], [place] [address] Hct 40.5 38.9 - 50.3 % CERNER BJWCH Comment:Testing performed by : [facility], [address], [place] [address] Plt 199 150 - 400 K/cumm CERNER BJWCH Comment:Testing performed by : [place] [address], [address], [place] [address] MPV 10.5 9.1 - 12.3 fL CERNER BJWCH Comment:Testing performed by : [place] [address], [address], [place] [address] RBC 4.61 4.30 - 5.80 M/cumm CERNER BJWCH Comment:Testing performed by : [place] [address], [address], [place] [address] MCV 87.9 81.3 - 96.4 fL CERNER BJWCH Comment:Testing performed by : [place] [address], [address], [place] [address] MCH 29.3 27.1 - 33.3 pg CERNER BJWCH Comment:Testing performed by : [place] [address], [address] [place] [address] MCHC 33.3 32.3 - 35.7 g/dL CERNER BJWCH Comment:Testing performed by : [place] [address], [address], [place] [address] RDW CV 12.5 11.1 - 14.9 % CERNER BJWCH Comment:Testing performed by : [place] [address], [address], [place] [address] RDW SD 40.3 35.7 - 48.1 fL CERNER BJWCH Comment:Testing performed by : [place] [address], [address], [place] [address] ANC Prelim 5.58 1.50 - 6.50 K/cumm GORAN HELM Comment: Interpretive Data The rapid ANC is a preliminary automated count and may vary from the final ANC (Neut Abs) reported in the WBC differential that follows. Current interpretive data was last revised 2024. Testing performed by: [facility], [address], [address], [place] [address] Blood 05/05/2025 8:28 AM CDT 05/05/2025 8:34 AM CDT Junaid Cifuentes MD PhD LAB BLOOD ORDERABLES Final Result Performing Organization Address City/[facility]/ZIP Co de Phone Number [facility] [address] [facility]. [facility] [place] [place] [address] * Uric acid (05/05/2025 8:28 AM CDT) Uric acid 3.5 3.0 - 8.0 mg/dL Comment:Testing performed by : [facility], [address], [place] [address] Blood 05/05/2025 8:28 AM CDT 05/05/2025 8:49 AM CDT Junaid Cifuentes MD PhD LAB BLOOD ORDERABLES Final Result Performing Organization Address City/[facility] Co de Phone Number [facility] [address] [facility]. [facility] [place] [place] [address] * Triglycerides (05/05/2025 8:28 AM CDT) Triglycerides [...] last revised on 2018. Testing performed by: [facility], [address] [place], [place] [address] [address] Blood 05/05/2025 8:28 AM CDT 05/05/2025 8:49 AM CDT Junaid Cifuentes MD PhD LAB BLOOD ORDERABLES Final Result Performing Organization Address City/[facility] Co de Phone Number GORAN [facility] [address] [facility]. [facility] [place] [address] * (ABNORMAL) PSA diagnostic (05/05/2025 8:28 AM CDT) Pathologist [facility] PSA-Total 61.58(H) <=6.20 ng/mL Comment: Interpretive Data [...] data last revised 22. Testing performed by: [facility], [address] [place] [address] [place] [address] Blood 05/05/2025 8:28 AM CDT 05/05/2025 8:49 AM CDT us Junaid Cifuentes MD PhD LAB BLOOD ORDERABLES Final Result Performing Organization Address City/[facility] Co de Phone Number GORAN BJWCH [address] [address] [facility]. [facility] [place] [address] * Phosphorus (05/05/2025 8:28 AM CDT) Pathologist [facility] Phosphorus, pl 3.3 2.3 - 4.5 mg/dL Comment:Testing performed by : [facility], [address] [place] [address] Blood 05/05/2025 8:28 AM CDT 05/05/2025 8:49 AM CDT Junaid Cifuentes MD PhD LAB BLOOD ORDERABLES Final Result Performing Organization Address City/[facility]/ZIP Co de Phone Number [facility]AN [facility] [address] [address]. [facility] [place] [address] * Lactate dehydrogenase (LD) (05/05/2025 8:28 AM CDT) [facility] Lactate dehydrogenase (LDH) 154 100 - 250 Units/L Comment:Testing performed by : [facility], [address] [place] [address] [place] [address] Blood 05/05/2025 8:2 8 AM CDT 05/05/2025 8:49 AM CDT Junaid Cifuentes MD PhD LAB BLOOD ORDERABLES Final Result Performing Organization Address [facility] Co de Phone Number G[facility]AN [facility] [address] [address] [facility]. [facility] [place] [address] * (ABNORMAL) Creatine kinase (CK), total (05/05/2025 8:28 AM CDT) [facility] CK 28(L) 40 - 300 Units/L Comment:Testing performed by : [facility], [address] [facility], [place] [address] Blood 05/05/2025 8:28 AM CDT 05/05/2025 8:49 AM CDT Junaid Cifuentes MD PhD LAB BLOOD ORDERABLES Final Result Performing Organization Address City/[facility] Co de Phone Number GORAN BJWCH [address] [address] [facility]. [facility] [place] [address] * (ABNORMAL) Comprehensive metabolic panel (05/05/2025 8:28 AM CDT) Sodium 141 135 - 145 mmol/L Comment:Testing performed by : [facility], [address], [place] [address] Potassium, pl 4.0 3.3 - 4.9 mmol/L CERNER BJWCH Comment:Testing performed by : [facility], [address], [place] [address] Chloride 102 97 - 110 mmol/L CERNER BJWCH Comment:Testing performed by : [facility], [address], [place] [address] CO2 28 22 - 32 mmol/L CERNER BJWCH Comment:Testing performed by : [facility], [address], [place] [address] Anion gap 11 2 - 15 mmol/L CERNER BJWCH Comment:Testing performed by : [facility], [address], [place] [address] BUN 18 6 - 25 mg/dL CERNER BJWCH Comment:Testing performed by : [facility], [address], [place] [address] Creatinine 0.70(L) 0.80 - 1.30 mg/dL CERNER BJWCH Comment:Testing performed by : [facility], [address], [place] [address] Glucose 142 70 - 199 mg/dL CERNER [...] was last revised 2022. Testing performed by: [facility], [address], [place] [address] Calcium 9.5 8.5 - 10.3 mg/dL CERNER BJWCH Comment:Testing performed by : [facility], [address], [place] [address] Bilirubin, total 0.3 0.1 - 1.2 mg/dL CERNER BJWCH Comment:Testing performed by : [facility], [address], [place] [address] Protein, pl 6.8 6.5 - 8.5 g/dL CERNER BJWCH Comment:Testing performed by : [facility], [address], [place] [address] Albumin 4.3 3.5 - 5.0 g/dL CERNER BJWCH Comment:Testing performed by : [facility], [address], [place] [address] Alk phos 74 40 - 130 Units/L CERNER BJWCH Comment:Testing performed by : [facility], [address], [place] [address] ALT 16 7 - 55 Units/L CERNER BJWCH Comment:Testing performed by : [facility], [address], [place] [address] AST 22 10 - 50 Units/L CERNER BJWCH Comment:Testing performed by : [facility], [address], [place] [address] Blood 05/05/2025 8:28 AM CDT 05/05/2025 8:49 AM CDT us Junaid Cifuentes MD PhD LAB BLOOD ORDERABLES Final Result [facility] [address] [place] [address] * IR Port Placement Chest > 5 Years (04/28/2025 10:13 AM CDT) Anatomical Region Laterality Modality Chest N/A X-Ray Angiograph y 04/28/2025 10:3 9 AM CDT Impressions 04/28/2025 10:39 AM CDT Successful chest wall port placement. PLAN: The catheter is ready for immediate use. Please note that a power injectable port was placed. When treatment is completed, removal can be scheduled by calling [facility] - [phone] [facility] - [phone] Electronically signed by: Donal Carrillo PA-C Narrative [...] was obtained. Prior to beginning the procedure, [place] Protocol was used to confirm the patient's [...] was obtained. Prior to beginning the procedure, [place] Protocol was used to confirm the patient's [...] completed, removal can be scheduled by calling [facility] - [phone] [facility] - [phone] Electronically signed by: Donal Carrillo PA-C Junaid Cifuentes MD PhD IMG IR PROCEDURES Fin al Result from Last 3 Months Insurance MEDICARE [facility] MEDICARE [employer] MEDIC[place] Member Subscriber Plan / Payer (Ef fective 2006-Present) Name:Mayank Collazo Member ID:[id number] Relation to Subscriber:Self Name:Mayank Collazo Subscriber ID:[id number] Payer ID:[id number] Group ID:Not on file Type:MEDICARE TRADITIONAL Address: [facility] [id number] [place] [id number] [employer] Care Teams Senior Mobile Developer Relationship Specialty Start Date End Date Arvind Castellanos MD PCP - General 12/24/17 Patrick Perez MD [address] [address] Urology 07/27/21
--- OUTSIDE RECORDS SUMMARY | 2025-07-23 09:05 | XMS_ITS | Encounter Summary ---
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
[2025-07-23 09:08] LABS: Alanine Aminotransferase 19 U/L (6-50); Albumin Level 3.9 g/dL (3.5-5.1); Alkaline Phosphatase 93 U/L (38-126); Anion Gap 8 mmol/L (4-12); Aspartate Amino Transferase 27 U/L (17-59); Bilirubin,Total 0.7 mg/dL (0.2-1.3); Blood Urea Nitrogen 21 mg/dL (9-20); Calcium 9.2 mg/dL (8.4-10.2); Carbon Dioxide 31 mmol/L (22-30); Chloride 102 mmol/L (98-107); Estimated CRCL calculation 62 ml/min; Estimated Glomerular Filt Rate > 60; Glucose 117 mg/dL (65-110); Lipase 32 U/L (23-300); Osmolality Calculated 296 mOsm/kg (285-295); Potassium 3.9 mmol/L (3.4-5.0); Sodium 141 mmol/L (137-145); Total Protein 6.2 g/dL (6.3-8.2)
[2025-07-23 09:25] LABS: Band Neutrophils Percent 7 % (0-6); Basophils Absolute Manual 0.00 K/mm3 (0-0.1); Basophils Percent Manual 0 % (0-1); Eosinophils Absolute Manual 0.00 K/mm3 (0.02-0.50); Eosinophils Percent Manual 0 % (1-6); Lymphocytes Absolute Manual 0.74 K/mm3 (1.1-4.5); Lymphocytes Percent Manual 5 % (18-44); Metamyelocytes Percent 2 %; Monocytes Absolute Manual 0.29 K/mm3 (0.1-0.90); Monocytes Percent Manual 2 % (3-9); Myelocytes Percent 1 %; Neutrophils Absolute Manual 13.41 K/mm3 (1.3-6.7); Neutrophils Percent Manual 83 % (46-73); Total Cells Counted 100
[2025-07-23 09:29] LABS: Add Urine Microscopic? YES; Appearance Urine Clear (Clear); Glucose Urine UA Negative (Negative); Leukocyte Esterase Ur Negative LEU/UL (Negative); Nitrate Urine Negative (Negative); Specific Grav Ur 1.015 (1.010-1.020)
--- NOTE | 2025-07-23 11:22 | PC.NURSE ---
pt resting eyes closed, call kate in reach, in room
--- NOTE | 2025-07-23 12:58 | PC.NURSE ---
pt has right chest port, not accessed at time of discharge.
== END 2025-07-23 13:53 | disposition short-term general hospital (02) ==
PROVIDERS: Emergency Provider Internal Medicine Critical Care Medicine; PCP Internal Medicine
DX: M87.059 Idiopathic aseptic necrosis of unspecified femur (principal); S62.109A Fracture of unspecified carpal bone, unspecified wrist, initial encounter for closed fracture; I10 Essential (primary) hypertension; Z85.46 Personal history of malignant neoplasm of prostate; W19.XXXA Unspecified fall, initial encounter
CPT/HCPCS: 36415; 72192; 80053; 81001; 83690; 85025; 99285

== ENCOUNTER 2025-07-23 14:29 | Inpatient (IN) | payer MEDICARE, OTHER, SELFPAY ==
--- NOTE | ~2025-07-23 | MR_ITS ---
EXAMINATION: MR hip LT wo con DATE: 07/25/2025 14:21 INDICATION: Left hip pain TECHNIQUE: Magnetic resonance imaging (MRI) of the left hip was performed without intravenous contrast. Sequences included full-field axial PD-weighted FS FSE and T1-weighted FSE, coronal of the pelvis with PD-weighted FS FSE, T2- weighted FSE and T1-weighted FSE, small field of view of the left hip with axial PD-weighted FS FSE, sagittal PD-weighted FS FSE, coronal PD-weighted FS FSE and coronal T2 weighted FSE. Additional radial T1-weighted FGR oriented orthogonal to the acetabular rim were obtained for evaluation of the labrum. COMPARISON: None FINDINGS: Bones/labrum/cartilage: Alignment is normal. There are nondisplaced fractures at the medial aspect of the left inferior pubic ramus and the lateral aspect of the left superior pubic ramus. There is also a nondisplaced fracture extending along the anterior inferior aspect of the left sacral ala. There is a 1.6 x 0.9 cm lesion at the left posterior iliac spine with increased T2 signal and loss of T1 marrow fat signal suspicious for metastatic disease. There is red marrow reexpansion in the visualized lower lumbar spine sparing L5 and along the iliac crests and proximal femurs with additional sparing of the remainder of the pelvis and the femoral heads and necks which suggests possible sequela from radiation treatment to the pelvis. Small sclerotic bone island at the right lesser trochanter. Avascular necrosis underlying the anterosuperior to severe aspect of the right femoral head and the anterosuperior aspect of the left femoral head. No collapse or findings to suggest instability of the overlying articular cortex. Mild osteoarthritis at the left hip with posterior and posterior superior predominant mild nonuniform joint space narrowing but with smooth chondral surface. There is delaminating tear at the anterosuperior chondral labral junction. There is more amorphous degeneration of the anterosuperior to superolateral left acetabular labrum. Fluid: Symmetric physiologic amount of fluid within both hip joints. Soft tissues: There is nonspecific feathery muscular edema at the bilateral greater trochanters muscles as well as at the bilateral abductor muscles. The latter is significantly more prominent on the left which could be related to muscle strain or reactive edema related to the pubic rami fractures. The iliopsoas and proximal hamstring tendons are normal. Mild tendinopathy without discrete tear at the greater trochanteric insertions of the anterior bilateral gluteus medius medius tendons. Postoperative change of prior prostatectomy. Limited evaluation of visceral organs of the pelvis is otherwise unremarkable. No pathologically enlarged pelvic/inguinal lymphadenopathy. IMPRESSION: 1. Status post prostatectomy with new bone lesion at the posterior left iliac spine with corresponding sclerosis on prior CT suspicious for metastatic prostate cancer. 2. Nondisplaced likely insufficiency fractures of the left superior and inferior pubic rami and the left sacroiliac. 3. Chronic osteonecrosis at the bilateral femoral heads. 4. Mild left hip osteoarthritis with delaminating tear at the anterosuperior chondral labral junction and degeneration of the superior to superolateral labrum. 5. Prominent asymmetric muscular edema at the left abductor muscles which could be related to muscle strain or reactive edema related to the left pubic rami fractures. Reviewed, dictated and finalized at location A. INE CRATER IMPRESSION: 1. Status post prostatectomy with new bone lesion at the posterior left iliac s pine with corresponding sclerosis on prior CT suspicious for metastatic prostat e cancer. 2. Nondisplaced likely insufficiency fractures of the left superior and inferio r pubic rami and the left sacroiliac. 3. Chronic osteonecrosis at the bilateral femoral heads. 4. Mild left hip osteoarthritis with delaminating tear at the anterosuperior ch ondral labral junction and degeneration of the superior to superolateral labrum . 5. Prominent asymmetric muscular edema at the left abductor muscles which could be related to muscle strain or reactive edema related to the left pubic rami f ractures.
--- NOTE | ~2025-07-23 | XR_ITS ---
Examination: XR femur LT min 2V Clinical History: Left Hip Pain with history of metastatic prostate Comparison: CT pelvis 1 day prior Technique: 2 views left femur 4 films Findings/impression: 1. No fracture or dislocation left femur. 2. Avascular necrosis left femoral head, without associated fracture. Reviewed, dictated and finalized at location R.
--- OUTSIDE RECORDS SUMMARY | 2025-07-23 14:35 | XMS_ITS | Clinical Summary ---
Author Organization [facility] Address [address] [place] [address] Phone Care Team Providers Care Wheel Setter Name Role Phone Arvind Castellanos MD Primary Care Provider [phone] Allergies Active Allergy Reactions Criticality Noted Date [...] Data STL ABSTRACTION Provider, Abstract 06/11/2025 Telephone [facility] - [address] [employer] [facility] [address] [address] [facility] [address] [place] [address] Franc Wyman MD Needs Appointment 06/10/2025 3:58 PM CDT - 06/10/2025 5:11 PM CDT Surgery [facility] Operating Room [address] [place] [address] Jessie Posada MD CYSTO CLOT EVACUATION BIPOLAR BLADDER FULGURATION AND URETHRAL DILATION 06/10/2025 3:42 PM CDT Anesthesia Event [facility] Operating Room [address] [place] [address] Aliyah Bone MD Fitzer, Julia N, AA 06/09/2025 External Device Data STL ABSTRACTION Provider, Abstract 06/08/2025 External Device Data STL ABSTRACTION Provider, Abstract 06/08/2025 External Device Data STL ABSTRACTION Provider, Abstract 06/04/2025 4:42 AM CDT - 06/11/2025 11:47 AM CDT Hospital Encounter [facility] Cardiovascular Progressive Care unit [address] [place] [address] Marco Antonio Gallego MD Amin, Birju V., Brdiget Santiago MD Michelson, Randal Cerf, DO Boone, [...] FUNCTION PANEL Routine 06/11/2025 4:50 AM CDT NC CYSTO W/DESTRUCTION OF LESIONS 06/10/2025 3:58 PM [...] - 9.8 K/uL 06/11/2025 5:02 AM CDT [facility] RBC 4.18(L) 4.50 - 5.40 M/uL 06/11/2025 5:02 AM CDT [facility] HEMOGLOBIN 12.5(L) 13.6 - 16.5 g/dL 06/11/2025 5:02 AM CDT [facility] HEMATOCRIT 36.3(L) 40.0 - 48.0 % 06/11/2025 5:02 AM CDT [facility] MCV 86.8 82.0 - 99.0 fL 06/11/2025 5:02 AM CDT [facility] MCH 29.9 27.2 - 32.6 pg 06/11/2025 5:02 AM CDT [facility] MCHC 34.4 31.5 - 35.5 g/dL 06/11/2025 5:02 AM CDT [facility] PLATELETS 313 140 - 350 K/uL 06/11/2025 5:02 AM CDT [facility] MPV 10.7 9.3 - 12.4 fL 06/11/2025 5:02 AM CDT [facility] RDW 12.5 11.5 - 14.5 % 06/11/2025 5:02 AM CDT [facility] RDW-STDEV 39.7 37.1 - 48.7 fL 06/11/2025 5:02 AM CDT [facility] Blood Venipuncture / Unknown 06/11/2025 4:50 AM CDT 06/11/2025 4:52 AM CDT Andrez Cerf Cyndee DO HEMATOLOGY ORDERABLES F inal Result Performing Organization Address City/[facility]/ZIP Co de Phone Number [facility] CLIA# [id number] [place] [address] * MAGNESIUM LEVEL (06/11/2025 4:50 AM CDT) Only the most recent of5 resultswithin the time period is included. MAGNESIUM 1.7 1.6 - 2.6 mg/dL 06/11/2025 5:26 AM CDT [facility] Blood Venipuncture / Unknown 06/11/2025 4:50 AM CDT 06/11/2025 4:52 AM CDT Andrez Cerf Cyndee DO CHEMISTRY ORDERABLES Fi nal Result Performing Organization Address City/[facility]/ZIP Co de Phone Number [facility] CLIA# [id number] [place] [address] * (ABNORMAL) RENAL FUNCTION PANEL (06/11/2025 4:50 AM CDT) Only the most recent of4 resultswithin the time period is included. SODIUM 142 136 - 145 mmol/L 06/11/2025 5:26 AM T [facility] POTASSIUM 4.3 3.4 - 5.1 mmol/L 06/11/2025 5:26 AM [facility] CHLORIDE 104 98 - 107 mmol/L 06/11/2025 5:26 AM [facility] CO2 28 22 - 29 mmol/L 06/11/2025 5:26 AM [facility] CALCIUM 9.1 8.6 - 10.4 mg/dL 06/11/2025 5:26 AM [facility] BUN 24(H) 6 - 20 mg/dL 06/11/2025 5:26 AM [facility] CREATININE 0.79 0.67 - 1.17 mg/dL 06/11/2025 5:26 AM [facility] Comment:The GFR result is no t clinically significant on patients <18 or >70 years of age. GLUCOSE 135(H) 74 - 99 mg/dL 06/11/2025 5:26 AM [facility] ALBUMIN 3.5 3.5 - 5.2 g/dL 06/11/2025 5:26 AM [facility] PHOSPHORUS 3.4 2.5 - 4.5 mg/dL 06/11/2025 5:26 AM [facility] GFR >60 mL/min/1.7 3 sq meter 06/11/2025 5:26 AM [facility] Comment:eGFR calculated with 2020 CKD-EPI equation. Vegetarian diet, extremely high or low muscle mass, and may affect results. Cystatin C with Glomerular Filtration Rate is a suitable alternative for these patients. ANION GAP 10 8 - 16 mmol/L 06/11/2025 5:26 AM [facility] Blood Venipuncture / Unknown 06/11/2025 4:50 AM CDT 06/11/2025 4:52 AM CDT Andrez Cotter DO CHEMISTRY ORDERABLES Fi nal Result Performing Organization Address [facility]/ZIP Co de Phone Number [facility] [id number] [place] [address] * TYPE AND SCREEN (06/10/2025 5:24 AM CDT) Only the most recent of2 resultswithin the time period is included. ABO GROUP B 06/10/2025 6:31 AM CDT [facility] RH (D) TYPE Positive 06/10/2025 6:31 AM CDT [facility] ANTIBODY SCREEN Negative 06/10/2025 6:31 AM CDT [facility] Blood Venipuncture / Unknown 06/10/2025 5:24 AM CDT 06/10/2025 5:37 AM CDT Nicholas Wall MD BLOOD BANK ORDERABLES Edited Res ult - Final Performing Organization Address [facility] Co de Phone Number [facility]# [id number] [place] [address] * URINE CULTURE (06/09/2025 6:36 PM CDT) Only the most recent of2 resultswithin the time period is included. CULTURE No growth at 24 hours 06/11/2025 8:02 AM CDT [facility] Urine URINE SPECIMEN OBTAINED BY CLEAN CATCH PROCEDURE / Unknown Collection / Unknown 06/09/2025 6:36 PM CDT 06/09/2025 8:10 PM CDT Selwyn Valencia DNP MICROBIOLOGY - GENERAL ORDERABLES Final Result Performing Organization Address City/[facility]/ZIP Co de Phone Number [id number] [place] [address] * UNFRACTIONATED HEPARIN MONITORING (06/09/2025 6:53 AM CDT) [facility] ANTI-XA UNFRAC HEP <0.10 See Interpreta tion. IU/mL 06/09/2025 7:36 AM CDT [facility] Blood Venipuncture / Unknown 06/09/2025 6:53 AM CDT 06/09/2025 7:09 AM CDT Narrative [facility] - 06/09/2025 7:36 AM CDT Unfractionated Heparin Therapeutic Range: 0.30-0.70 IU/ml Refer to pharmacy adult heparin protocol for further recommendation. The reference range for this test is specific to the anticoagulant and is not appropriate for monitoring patients on a DOAC protocol. us Ulices Rizo NP HEMATOLOGY ORDERABLES Final Res ult [facility] CLIA# [id number] [place] [address] * PTT (06/09/2025 6:53 AM CDT) [facility] PTT 26.5 23.1 - 37.1 seconds 06/09/2025 7:36 AM CDT [facility] Blood Venipuncture / Unknown 06/09/2025 6:53 AM CDT 06/09/2025 7:09 AM CDT us Ulices Rizo NP HEMATOLOGY ORDERABLES Final Res ult [facility] CLIA# [id number] [place] [address] * (ABNORMAL) TROPONIN (06/09/2025 5:15 AM CDT) Only the most recent of2 resultswithin the time period is included. [facility] TROPONIN T, 5TH GEN 271(HH) <=15 ng/L 06/09/2025 6:22 AM CDT [facility] Blood Venipuncture / Unknown 06/09/2025 5:15 AM CDT 06/09/2025 5:29 AM CDT Narrative [facility] - 06/09/2025 6:22 AM CDT Troponin elevated. Andrez Cotter DO CHEMISTRY ORDERABLES Fi nal Result [facility] CLIA# [id number] [place] [address] * EXTRA TUBE (URINE LÓPEZ) (06/08/2025 4:25 PM CDT) Only the most recent of2 resultswithin the time period is included. Urine URINE SPECIMEN OBTAINED BY CLEAN CATCH PROCEDURE / Unknown Collection / Unknown 06/08/2025 4:25 PM CDT 06/08/2025 4:41 PM CDT Andrez Cotter DO URINE ORDERABLES Final Result Performing Organization Address [facility] Co de Phone Number [facility] CLIA# [id number] [place] [address] * STREPTOCOCCUS PNEUMONIAE ANTIGEN (06/08/2025 4:25 PM CDT) [facility] STREPTOCOCCUS PNEUMONIAE AG NOT DETECTED Not Detected 06/08/2025 9:44 PM CDT [facility] Urine URINE SPECIMEN OBTAINED BY CLEAN CATCH PROCEDURE / Unknown Collection / Unknown 06/08/2025 4:25 PM CDT 06/08/2025 4:40 PM CDT Selwyn Valencia [facility] MICROBIOLOGY - GENERAL ORDERABLES Final Result Performing Organization Address City/[facility]/ZIP Co de Phone Number [facility] CLIA# [id number] [address] [facility] [place] [address] * SODIUM, RANDOM URINE (06/08/2025 4:25 PM CDT) Only the most recent of2 resultswithin the time period is included. SODIUM, URINE 89 mmol/L 06/08/2025 5:20 PM CDT [facility] Comment:Reference range not established Urine URINE SPECIMEN OBTAINED BY CLEAN CATCH PROCEDURE / Unknown Collection / Unknown 06/08/2025 4:25 PM CDT 06/08/2025 4:41 PM CDT [facility] Cyndee DO URINE ORDERABLES Final Result Performing Organization Address [facility]/ZIP Co de Phone Number [facility] [id number] [place] [address] * CREATININE, RANDOM URINE (06/08/2025 4:25 PM CDT) Only the most recent of2 resultswithin the time period is included. CREATININE, URINE 87.6 40.0 - 278.0 mg/dL 06/08/2025 5:20 PM CDT [facility] Comment:Reference Range vari es with fluid intake and diet. Urine URINE SPECIMEN OBTAINED BY CLEAN CATCH PROCEDURE / Unknown Collection / Unknown 06/08/2025 4:25 PM CDT 06/08/2025 4:41 PM CDT Andrez Rhomania Cyndee DO URINE ORDERABLES Final Result Performing Organization Address City/[facility]/ZIP Co de Phone Number [facility]# [id number] [place] [address] * (ABNORMAL) URINALYSIS WITH REFLEX MICROSCOPIC (06/08/2025 4:25 PM CDT) Only the most recent of2 resultswithin the time period is included. COLOR UA Claudette(A) Pale to Dark Yellow 06/08/2025 4:56 PM CDT [facility] CLARITY UA Cloudy(A) Clear 06/08/2025 4:56 PM CDT [facility] SPECIFIC GRAVITY UA 1.013 1.003 - 1.035 06/08/2025 4:56 PM CDT [facility] PH UA 6.0 5.0 - 8.0 06/08/2025 4:56 PM CDT [facility] LEUKOCYTE ESTERASE UA Negative Negative 06/08/2025 4:56 PM CDT [facility] NITRITE UA Negative Negative 06/08/2025 4:56 PM CDT [facility] PROTEIN UA 2+(A) Negative 06/08/2025 4:56 PM CDT [facility] GLUCOSE UA 1+(A) Negative 06/08/2025 4:56 PM CDT [facility] KETONES UA 1+(A) Negative 06/08/2025 4:56 PM CDT [facility] UROBILINOGEN UA Normal <2.0 mg/dL 4:56 PM CDT [facility] BILIRUBIN UA Negative Negative 06/08/2025 4:56 PM CDT [facility] BLOOD UA 2+(A) Negative 06/08/2025 4:56 PM CDT [facility] WBC UA >100(A) 0 - 2 /hpf 06/08/2025 4:56 PM CDT [facility] RBC UA >100(A) 0 - 2 /hpf 06/08/2025 4:56 PM CDT [facility] BACTERIA UA 2+(A) Negative /hpf 06/08/2025 4:56 PM CDT [facility] EPITHELIAL CELLS, URINE 0-5 0 - 5 /hpf 06/08/2025 4:56 PM CDT [facility] HYALINE CAST None Seen None Seen, 0-2 /lpf 06/08/2025 4:56 PM CDT [facility] Urine URINE SPECIMEN OBTAINED BY CLEAN CATCH PROCEDURE / Unknown Collection / Unknown 06/08/2025 4:25 PM CDT 06/08/2025 4:41 PM CDT [facility] Montserrat Cotter DO URINE ORDERABLES Final Result [facility] [employer] [facility] CLIA# [id number] [place] [address] * US RENAL AND BLADDER (06/08/2025 11:21 AM CDT) Anatomical Region Laterality Modality Abdomen Ultrasound 06/08/2025 11:2 1 AM CDT Impressions 06/08/2025 11:33 AM CDT IMPRESSION: 1. Pedunculated soft tissue mass within the bladder concerning for neoplasm. Direct visualization and/or tissue sampling is recommended for further evaluation. 2. Prominence of the right greater than left renal pelvis. DICTATION LOCATION: Location 7 - [facility] Narrative 06/08/2025 11:33 AM CDT EXAMINATION: [...] 527(HH) <=15 ng/L 06/08/2025 6:44 AM CDT [facility] [employer] [facility] DEL[place] 6HR TROPONIN T % 206(HH) See Interp. % 06/08/2025 6:44 AM CDT [facility] [employer] [facility] Blood Venipuncture / Unknown 06/08/2025 5:48 AM CDT 06/08/2025 6:12 AM CDT Narrative [facility] - 06/08/2025 6:44 AM CDT Troponin elevated. Delay in collection of timed specimen beyond recommended collection interval. Results must be interpreted in clinical context. Delta significant change. Francisco Guerra PA-C CHEMISTRY ORDERABLES Final Result [facility] CLIA# [id number] [place] [address] * (ABNORMAL) CBC WITH DIFFERENTIAL (06/08/2025 5:48 AM CDT) Only the most recent of5 resultswithin the time period is included. WBC 6.5 4.0 - 9.8 K/uL 06/08/2025 6:15 AM CDT [facility] RBC 3.85(L) 4.50 - 5.40 M/uL 06/08/2025 6:15 AM CDT [facility] HEMOGLOBIN 11.2(L) 13.6 - 16.5 g/dL 06/08/2025 6:15 AM CDT [facility] HEMATOCRIT 32.7(L) 40.0 - 48.0 % 06/08/2025 6:15 AM CDT [facility] MCV 84.9 82.0 - 99.0 fL 06/08/2025 6:15 AM CDT [facility] MCH 29.1 27.2 - 32.6 pg 06/08/2025 6:15 AM CDT [facility] MCHC 34.3 31.5 - 35.5 g/dL 06/08/2025 6:15 AM CDT [facility] RDW 12.3 11.5 - 14.5 % 06/08/2025 6:15 AM CDT [facility] RDW-STDEV 37.2 37.1 - 48.7 fL 06/08/2025 6:15 AM CDT [facility] PLATELETS 184 140 - 350 K/uL 06/08/2025 6:15 AM CDT [facility] MPV 10.9 9.3 - 12.4 fL 06/08/2025 6:15 AM CDT [facility] NEUTROPHILS 79 % 06/08/2025 6:15 AM CDT [facility] LYMPHOCYTES 4 % 06/08/2025 6:15 AM CDT [facility] MONOCYTES 15 % 06/08/2025 6:15 AM CDT [facility] EOSINOPHILS 0 % 06/08/2025 6:15 AM CDT [facility] BASOPHILS 0 % 06/08/2025 6:15 AM CDT [facility] IMMATURE GRANULOCYTES 1 % 06/08/2025 6:15 AM CDT [facility] Comment:IG (Immature Granulo cyte) count includes Metamyelocytes, Myelocytes, and Promyelocytes NEUTROPHIL ABSOLUTE 5.16 1.90 - 7.00 K/uL 06/08/2025 6:15 AM CDT [facility] LYMPHOCYTE ABSOLUTE 0.25(L) 0.70 - 4.50 K/uL 06/08/2025 6:15 AM CDT [facility] MONOCYTE ABSOLUTE 1.00 0.10 - 1.30 K/uL 06/08/2025 6:15 AM CDT [facility] EOSINOPHIL ABSOLUTE 0.00 0.00 - 0.70 K/uL 06/08/2025 6:15 AM CDT [facility] BASOPHILS ABSOLUTE 0.02 0.00 - 0.20 K/uL 06/08/2025 6:15 AM CDT [facility] IMMATURE GRANULOCYTES ABSOLUTE 0.08(H) 0.00 - 0.03 K/uL 06/08/2025 6:15 AM T [facility] Blood Venipuncture / Unknown 06/08/2025 5:48 AM CDT 06/08/2025 6:11 AM CDT Andrez Cotter DO HEMATOLOGY ORDERABLES F inal Result [facility] CLIA# [id number] [place] [address] * (ABNORMAL) TROPONIN 2 HR, 5TH GEN (06/07/2025 9:14 PM CDT) TROPONIN T, 2 HR 5TH GEN 186(HH) <=15 ng/L 06/07/2025 10:06 PM CDT [facility] [employer] [facility] Blood Venipuncture / Unknown 06/07/2025 9:14 PM CDT 06/07/2025 9:33 PM CDT Narrative [facility] [employer] [facility] - 06/07/2025 10:06 PM CDT Troponin elevated. Delay in collection of timed specimen beyond recommended collection interval. Results must be interpreted in clinical context. Unable to calculate delta. [employer] PA-C CHEMISTRY ORDERABLES Final Result [facility] [id number] [place] [address] * (ABNORMAL) TROPONIN BASELINE, 5TH GEN (06/07/2025 8:55 PM CDT) TROPONIN T, BASELINE 5TH GEN 172(HH) <=15 ng/L 06/07/2025 10:05 PM CDT [facility] [employer] [facility] Blood Venipuncture / Unknown 06/07/2025 8:55 PM CDT 06/07/2025 9:33 PM CDT Narrative [facility] [employer] [facility] - 06/07/2025 10:05 PM CDT Troponin elevated. [employer] PA-C CHEMISTRY ORDERABLES Final Result [facility] [employer] [facility] [id number] [place] [address] * (ABNORMAL) HEMOGLOBIN AND HEMATOCRIT (06/07/2025 8:55 PM CDT) Only the most recent of2 resultswithin the time period is included. [facility] HEMOGLOBIN 11.6(L) 13.6 - 16.5 g/dL 06/07/2025 9:35 PM CDT [facility] HEMATOCRIT 33.5(L) 40.0 - 48.0 % 06/07/2025 9:35 PM CDT [facility] Blood Venipuncture / Unknown 06/07/2025 8:55 PM CDT 06/07/2025 9:34 PM CDT Francisco Guerra PA-C HEMATOLOGY ORDERABLES Final Result [facility] CLIA# [id number] [place] [address] * (ABNORMAL) BASIC METABOLIC PANEL (06/07/2025 8:55 PM CDT) Only the most recent of2 resultswithin the time period is included. [facility] SODIUM 142 136 - 145 mmol/L 06/07/2025 10:02 PM CDT [facility] POTASSIUM 3.3(L) 3.4 - 5.1 mmol/L 06/07/2025 10:02 PM CDT [facility] CHLORIDE 106 98 - 107 mmol/L 06/07/2025 10:02 PM CDT [facility] CO2 22 22 - 29 mmol/L 06/07/2025 10:02 PM CDT [facility] CALCIUM 9.2 8.6 - 10.4 mg/dL 06/07/2025 10:02 PM CDT [facility] BUN 18 6 - 20 mg/dL 06/07/2025 10:02 PM CDT [facility] CREATININE 1.17 0.67 - 1.17 mg/dL 06/07/2025 10:02 PM CDT [facility] Comment:The GFR result is no t clinically significant on patients <18 or >70 years of age. GLUCOSE 123(H) 74 - 99 mg/dL 06/07/2025 10:02 PM CDT [facility] GFR >60 mL/min/1.7 3 sq meter 06/07/2025 10:02 PM CDT [facility] Comment:eGFR calculated with 2020 CKD-EPI equation. Vegetarian diet, extremely high or low muscle mass, and may affect results. Cystatin C with Glomerular Filtration Rate is a suitable alternative for these patients. ANION GAP 14 8 - 16 mmol/L 06/07/2025 10:02 PM CDT [facility] Blood Venipuncture / Unknown 06/07/2025 8:55 PM CDT 06/07/2025 9:33 PM CDT Francisco Guerra PA-C CHEMISTRY ORDERABLES Final Result [facility] CLIA# [id number] [address] [place] [address] * EKG 12-LEAD (06/07/2025 7:56 PM CDT) Only the most recent of2 resultswithin the time period is included. 06/07/2025 7:56 PM CDT Narrative INTERFACE SYSTEM - 06/08/2025 6:48 [place] [address] Test Date: 2025-06-07 Pat Name: MAYANK JEKNINS Department: 96 Room: [facility] 01 Gender: M Vp Product Management: DEJAH : 1955 Requested By: MARCO ANTONIO PAEZ Order Number: [id number] Reading MD: Nadir Michaels Measurements Intervals [place] Rate: 75 P: 80 NC: 168 QRS: 115 QRSD: 142 T: 74 QT: 386 QTc: 431 Interpretive Statements Sinus rhythm with premature atrial complexes Right bundle branch block Abnormal ECG Compared to ECG 06/04/2025 07:27:46 Atrial premature complex(es) now present Electronically Signed On 06-08-2025 6:48:36 CDT by Nadir Michaels Procedure Note Provider, Historical - 06/08/[address] [address] Test Date: 2025-06-07 Pat Name: MAYANK JENKINS Department: 96 Room: [address] [place] [address] Gender: M Vp Product Management: DEJAH : 1955 Requested By: MARCO ANTONIO PAEZ Order Number: [id number] Reading MD: Nadir Michaels Measurements Intervals [place] Rate: 75 P: 80 NC: 168 QRS: 115 QRSD: 142 T: 74 [...] - 145 mmol/L 06/06/2025 7:10 AM CDT [facility] POTASSIUM 3.1(L) 3.4 - 5.1 mmol/L 06/06/2025 7:10 AM CDT [facility] CHLORIDE 107 98 - 107 mmol/L 06/06/2025 7:10 AM CDT [facility] CO2 24 22 - 29 mmol/L 06/06/2025 7:10 AM CDT [facility] CALCIUM 9.1 8.6 - 10.4 mg/dL 06/06/2025 7:10 AM CDT [facility] BUN 14 6 - 20 mg/dL 06/06/2025 7:10 AM [facility] [place] CREATININE 0.76 0.67 - 1.17 mg/dL 06/06/2025 7:10 AM [facility] [place] Comment:The GFR result is no t clinically significant on patients <18 or >70 years of age. GLUCOSE 107(H) 74 - 99 mg/dL 06/06/2025 7:10 AM [facility] [place] TOTAL PROTEIN 6.4 6.3 - 8.7 g/dL 06/06/2025 7:10 AM [facility] [place] ALBUMIN 3.7 3.5 - 5.2 g/dL 06/06/2025 7:10 AM [facility] [place] BILIRUBIN TOTAL 0.9 0.0 - 1.1 mg/dL 06/06/2025 7:10 AM [facility] [place] ALKALINE PHOSPHATASE 47 40 - 150 U/L 06/06/2025 7:10 AM [facility] [place] AST 29 0 - 41 U/L 06/06/2025 7:10 AM [facility] [place] ALT 8 0 - 41 U/L 06/06/2025 7:10 AM [facility] [place] GFR >60 mL/min/1.7 3 sq meter 06/06/2025 7:10 AM [facility] [place] Comment:eGFR calculated with 2020 CKD-EPI equation. Vegetarian diet, extremely high or low muscle mass, and may affect results. Cystatin C with Glomerular Filtration Rate is a suitable alternative for these patients. ANION GAP 13 8 - 16 mmol/L 06/06/2025 7:10 AM [facility] [place] Blood Venipuncture / Unknown 06/06/2025 5:30 AM CDT 06/06/2025 5:38 AM CDT us Orly Hernández DO CHEMISTRY ORDERABLES Final Resu lt [facility] CLIA# [id number] [place] [address] * LEGIONELLA ANTIGEN, URINE (06/05/2025 5:27 PM CDT) [facility] LEGIONELLA AG, URINE NOT DETECTED Not Detected 06/06/2025 2:49 PM CDT [facility] Urine URINE SPECIMEN OBTAINED BY CLEAN CATCH PROCEDURE / Unknown Collection / Unknown 06/05/2025 5:27 PM CDT 06/05/2025 9:20 PM CDT [facility] - 06/06/2025 2:49 PM CDT This test [...] is not detected in urine. Selwyn Valencia [facility] MICROBIOLOGY - GENERAL ORDERABLES Final Result [facility]# [id number] [address] [place] [address] * RESPIRATORY PATHOGEN PCR PANEL (06/05/2025 11:35 AM CDT) [facility] Respiratory Pathogen PCR Panel NOT DETECTED No respiratory pathogen nucleic acids detected. 06/05/2025 12:40 PM CDT [facility] COVID-19 PCR NOT DETECTED Not Detected 06/05/2025 12:40 PM CDT [facility] Upper Respiratory ENTIRE NASOPHARYNX / Unknown Collection / Unknown 06/05/2025 11:35 AM CDT 06/05/2025 11:46 AM CDT [facility] - 06/05/2025 12:40 PM CDT The [...] GENERAL ORDERABLES Final Result Performing Organization Address City/[facility]/ZIP Co de Phone Number [facility] [id number] [place] [address] * PROTIME-INR (06/05/2025 5:43 AM CDT) PROTIME 14.7 11.5 - 14.7 Seconds 06/05/2025 6:57 AM CDT [facility] INR 1.1 0.9 - 1.1 06/05/2025 6:57 AM CDT [facility] Blood Venipuncture / Unknown 06/05/2025 5:43 AM CDT 06/05/2025 6:26 AM CDT Genaro Mclean DO HEMATOLOGY ORDERABL ES Final Result Performing Organization Address [facility] Co de Phone Number [facility]# [id number] [place] [address] * (ABNORMAL) PROCALCITONIN (06/05/2025 3:30 AM CDT) PROCALCITONIN 1.10(H) <=0.25 ng/mL 06/05/2025 10:42 AM CDT [facility] Blood Venipuncture / Unknown 06/05/2025 3:30 AM CDT 06/05/2025 3:37 AM CDT Narrative [facility] - 06/05/2025 10:42 AM CDT The [...] and peaks within 6-24 hours. Selwyn Valencia [facility] CHEMISTRY ORDERABLES [facility] Result [facility]# [id number] [place] [address] * (ABNORMAL) MANUAL DIFFERENTIAL (06/05/2025 3:30 AM CDT) Only the most recent of3 resultswithin the time period is included. ADJUSTED WBC 1.3 K/uL 06/05/2025 4:30 AM CDT [facility] NRBC PER 100 WBC 1(H) <=0 /100 WBC 06/05/2025 4:30 AM CDT [facility] SEGMENTED NEUTROPHILS 28 % 06/05/2025 4:30 AM CDT [facility] LYMPHOCYTES RELATIVE 58(H) 43 - 53 % 06/05/2025 4:30 AM CDT [facility] MONOCYTES RELATIVE 11 % 2024 4:30 AM CDT [facility] BASOPHILS RELATIVE 2 % 2024 4:30 AM CDT [facility] METAMYELOCYTES RELATIVE 1(H) <=0 % 06/05/2025 4:30 AM CDT [facility] NEUTROPHILS ABSOLUTE COUNT 0.37(LL) 1.90 - 7.00 K/uL 06/05/2025 4:30 AM CDT [facility] LYMPHOCYTES ABSOLUTE 0.76 0.70 - 4.50 K/uL 06/05/2025 4:30 AM CDT [facility] MONOCYTES ABSOLUTE 0.14 0.10 - 1.30 K/uL 06/05/2025 4:30 AM CDT [facility] BASOPHILS ABSOLUTE 0.02 0.00 - 0.20 K/uL 06/05/2025 4:30 AM CDT [facility] TOTAL CELLS COUNTED IN DIFF 110 06/05/2025 4:30 AM CDT [facility] RBC MORPHOLOGY abnormal 06/05/2025 4:30 AM CDT [facility] PLATELET EST. Adequate 06/05/2025 4:30 AM CDT [facility] ANISOCYTOSIS 1+ /hpf 06/05/2025 4:30 AM CDT [facility] POIKILOCYTES 2+ /hpf 06/05/2025 4:30 AM CDT [facility] SMUDGE CELLS Present /100 06/05/2025 4:30 AM CDT [facility] Blood Venipuncture / Unknown 06/05/2025 3:30 AM CDT 06/05/2025 3:40 AM CDT us Orly Hernández DO HEMATOLOGY ORDERABLES COM Final Result [facility] CLIA# [id number] [place] [address] * (ABNORMAL) C-REACTIVE PROTEIN (06/05/2025 3:30 AM CDT) CRP 149.0(H) <5.0 mg/L 06/05/2025 10:11 AM CDT [facility] Blood Venipuncture / Unknown 06/05/2025 3:30 AM CDT 06/05/2025 3:37 AM CDT us Selwyn Valencia DNP CHEMISTRY ORDERABLES Fi nal Result [facility] CLIA# [id number] [place] [address] * CT CHEST ABDOMEN PELVIS W CONT [...] above. DICTATION LOCATION: Location 7 - [facility] Narrative 06/04/2025 7:45 PM CDT EXAM: [...] CULTURE No growth 06/10/2025 4:26 AM CDT [facility] Blood (Peripheral) Venipuncture / Unknown 06/04/2025 4:21 PM CDT 06/04/2025 5:01 PM CDT Orly Hernández DO MICROBIOLOGY - GENERAL ORDERABL ES Final Result [id number] [address] [facility] [address] [place] [address] * ECHO COMPLETE - CONTRAST AND STRAIN IF INDICATED (06/04/2025 12:10 PM CDT) EJECTION FRACTION 64 INTERFACE SYSTEM 06/04/2025 11:4 1 AM CDT Narrative INTERFACE SYSTEM - 06/04/2025 12:14 PM CDT Transthoracic Echocardiogram Patient: Mayank Jenkins Study ID: [id number] Gender: M : 1955 Age: 70 Race: RAMON Height 180.3cm Study Date: 06/04/2025 Weight: 56.4kg Access. #: [id number] BP: 127 / 65 *Referring Physician:* Orly Hernández V. *Ordering Physician:* Orly Hernández V. *Blog Writer:Susan Orozco RDCS student services coordinator: Nurse: Indications: High BNP. History: PMH: No [...] cm --------- Area 3.1 cm^2 --------- Peak christaina, S 1.18 m/sec --------- VTI, S 21.6 [...] values inside specified reference range. Procedure data: [facility] No prior study was available for [...] Prepared and Electronically Authenticated He Valle M.D. [id number]:20 Procedure Note He Valle MD - 06/04/2025 Transthoracic Echocardiogram Patient: Mayank Jenkins Study ID: [id number] Gender: M : 1955 Age: 70 Race: RAMON Height 180.3cm Study Date: 06/04/2025 Weight: 56.4kg Access. #: [id number] BP: 127 / 65 *Referring Physician:* Orly Hernández V. *Ordering Physician:* Orly Hernández V. *Blog Writer:* Erika Orozco [facility] student services coordinator: Nurse: Indications: High BNP. History: PMH: No [...] values inside specified reference range. Procedure data: [facility] No prior study was available for [...] Prepared and Electronically Authenticated He Valle M.D. [id number]:14:20 us Orly Hernández DO US ORDERABLES Final Result Performing Organization Address City/[facility]/ZIP Co de Phone Number INTERFACE SYSTEM Refer to clinic/hospital department * LACTIC ACID (06/04/2025 7:05 AM CDT) LACTIC ACID 1.0 <=2.0 mmol/L 06/04/2025 7:51 AM CDT [facility] Blood Venipuncture / Unknown 06/04/2025 7:05 AM CDT 06/04/2025 7:23 AM CDT us Orly Hernández DO CHEMISTRY ORDERABLES Final Resu lt Performing Organization Address [facility] Co de Phone Number [facility] CLIA# [id number] [place] [address] * XR PRIOR STUDY (06/03/2025 7:35 PM CDT) Narrative [facility] - 06/04/2025 4:17 PM CDT This exam was auto finalized to allow images to be scanned to PACS. External Provider [facility] DIAGNOSTIC IMAGING ORDERA BLES Final Result Performing Organization Address [facility] Co de Phone Number [facility] CLIA # [id number] [place] [address] from Last 3 Months Insurance MEDICARE PART A AND B [facility] RX [employer] Medicare Part D RX [employer] (INTERNAL) [facility] Internal Plans Advance Directives For more information, please contact: [phone] * Full Code (Latest Code Status on File) Date Activated Date Inactivated Comments 06/04/2025 7:59 AM 06/11/2025 1:57 PM Care Teams Wheel Setter Relationship Specialty Start Date End Date Arvind Castellanos MD [address] [place] [address] PCP - General Internal Medicine 06/04/25
--- OUTSIDE RECORDS SUMMARY | 2025-07-23 14:35 | XMS_ITS | Clinical Summary ---
Author Organization [facility] Address [address] [place] [address] Care Team Providers Care Nonfarm Animal Caretaker Name Role Phone Arvind Castellanos MD Primary Care Provider [phone] Allergies Active Allergy Reactions Criticality Noted Date [...] by mouth daily. Active vitamin D2, ergocalciferol, 92685 UNITS capsule Take 50,000 Units by mouth. 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
--- OUTSIDE RECORDS SUMMARY | 2025-07-23 14:35 | XMS_ITS | Clinical Summary ---
Author Organization [facility] Address [address] [place] [address] Care Team Providers Care Engineer Booster And Exhauster Name Role Phone Arvind Castellanos MD Primary Care Provider [phone] Patrick Perez MD Unavailable [phone] Allergies Active Allergy Reactions Criticality Noted Date [...] Type Department Care Team Description 07/15/2025 Telephone [facility] Medicine Oncology [address] [place] [address] [address] [place] [address] Sharmin De La Vega, RN 07/14/2025 9:30 AM CDT Infusion [facility] at [address] [place] [address] 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); Prostate cancer (HCC); 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) 07/14/2025 9:00 AM CDT Office Visit [facility] Medicine Oncology [address] [place] [address] [address] [place] [address] Gladis Savage NP 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); Prostate cancer (HCC); 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); Osteoporosis without current pathological fracture, unspecified osteoporosis type 07/14/2025 8:00 AM CDT Clinical Support [facility] at [address] [place], [place] [address] Prostate cancer (HCC); 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) 06/23/2025 9:30 AM CDT Infusion [facility] at [address] [place] [address] 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); Prostate cancer (HCC); 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) 06/23/2025 9:00 AM CDT Office Visit [facility] Oncology [address] [place], [place] [address] [phone] Junaid Cifuentes MD PhD 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); Prostate cancer (HCC) 06/23/2025 8:00 AM CDT Clinical Support [facility] at [address] [place] [phone] Prostate cancer (HCC); 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) 06/16/2025 9:00 AM CDT Office Visit [facility] Oncology [address] [place] [address] [place] [phone] Gladis Saavge NP 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); Prostate cancer (HCC) 06/16/2025 8:00 AM CDT Clinical Support [address] [place] [address] Prostate cancer (HCC); 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) 06/14/2025 Orders Only [facility] Scanning, Provider 06/11/2025 Telephone [facility] Oncology [address] [place], [place] [address] [phone] Tierney Magana RN 06/09/2025 Telephone [facility] [address] [place] [address] [address] [place], [place] [address] Sharmin De La Vega, POLINA 06/07/[facility] [address] [place], [place] [phone] Sharmin De La Vega, POLINA 06/04/2025 Telephone [facility] Medicine Oncology [address] [place] [address] [address] [place], [place] [phone] Yudith Orozco CMA 06/04/2025 [facility] Floor 5 [place] [phone] Shramin De La Vega, POLINA 06/03/[address] [address] He Almaraz MD 06/03/2025 Telephone [facility] Medicine Oncology [facility] Floor 6 [place] [address] Radha Healy 05/27/2025 Telephone [facility] Medicine Oncology [address] [place] [address] [address] [place] [place], [place] [phone] Alfonso Macias, POLINA 05/26/2025 9:30 AM CDT Infusion [facility] at [address] [place] [phone] 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); Prostate cancer (HCC); 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); Prostate cancer (HCC) 05/05/2025 9:00 AM CDT Office Visit [facility] Oncology [address] [place] [address] [address] [place] [address] Gladis Savage, ALTON Prostate cancer (HCC); 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) 05/05/2025 8:00 AM CDT Clinical Support [facility] at [address] [place] [address] Prostate cancer (HCC); 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); Research study patient 05/05/2025 Documentation [facility] at [facility] [address] [facility] [place] [address] Maye Cottrell, BUFFY 05/03/2025 Orders Only [facility] Oncology [address] [place] [address] [address] [place] [address] Junaid Cifuentes MD PhD Research study patient 04/28/2025 7:42 AM CDT - 04/28/2025 11:59 PM CDT Hospital Encounter [facility] [address] [place] [address] Vida Weller, Paulette Perdomo RN Prostate cancer (HCC) Discharge Disposition: Discharge to home or self care 04/27/2025 Telephone [facility] [address] [place] [address] Padmini Webb RN from Last 3 Months [...] file 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 Testing performed by: [facility], [address] [place] [address] Blood 07/14/2025 7:48 AM CDT 07/14/2025 8:19 AM CDT Junaid Cifuentes MD PhD LAB BLOOD ORDERABLES Final Result [facility] [address] [place] [address] * (ABNORMAL) Differential, auto (07/14/2025 7:48 AM CDT) Neutrophil abs 12.29(H) 1.50 - 6.50 K/cumm Comment:Testing performed by : [facility], [address] [place] [address] Imm gran abs 0.07 0.00 - 0.10 K/cumm CERNER BJWCH Comment:Testing performed by : [facility], [address] [place] [address] Lymphocyte abs 0.64(L) 0.80 - 3.30 K/cumm GORAN BJWCH Comment:Testing performed by : [facility], [address] [place] [address] Monocyte abs 0.76 0.20 - 0.80 K/cumm CERNER BJWCH Comment:Testing performed by : [facility], [address] [place] [address] Eosinophil abs 0.01 0.00 - 0.50 K/cumm CERNICHOLE BJWCH Comment:Testing performed by : [facility], [address] [place] [address] Basophil abs 0.03 0.00 - 0.10 K/cumm CERNICHOLE BJWCH Comment:Testing performed by : [facility], [address] [place] [address] Neutrophil pct 89.1 % CERNER BJWCH Comment: Interpretive Data Percent cell count reference ranges are not reported, since discordance with absolute values may lead to misinterpretation of CBC data. Current Interpretive Data was last revised on 2017. Testing performed by: [facility], [facility], [address] [place] [address] Imm gran pct 0.5 % CERNER BJWCH Comment: Interpretive Data Percent cell count reference ranges are not reported, since discordance with absolute values may lead to misinterpretation of CBC data. Current Interpretive Data was last revised on 2017. Testing performed by: [facility], [facility], [address] [place] [address] Lymphocyte pct 4.6 % CERNER BJWCH Comment: Interpretive Data Percent cell count reference ranges are not reported, since discordance with absolute values may lead to misinterpretation of CBC data. Current Interpretive Data was last revised on 2017. Testing performed by: [facility], [facility], [address] [place] [address] Monocyte pct 5.5 % CERNER BJWCH Comment: Interpretive Data Percent cell count reference ranges are not reported, since discordance with absolute values may lead to misinterpretation of CBC data. Current Interpretive Data was last revised on 2017. Testing performed by: [facility], [facility], [address] [place] [address] Eosinophil pct 0.1 % CERNER BJWCH Comment: Interpretive Data Percent cell count reference ranges are not reported, since discordance with absolute values may lead to misinterpretation of CBC data. Current Interpretive Data was last revised on 2017. Testing performed by: [facility], [facility], [address] [place] [address] Basophil pct 0.2 % CERNER BJWCH Comment: Interpretive Data Percent cell count reference ranges are not reported, since discordance with absolute values may lead to misinterpretation of CBC data. Current Interpretive Data was last revised on 2017. Testing performed by: [facility], [facility], [address] [place] [address] Blood 07/14/2025 7:48 AM CDT 07/14/2025 7:50 AM CDT Junaid Cifuentes MD PhD LAB BLOOD ORDERABLES Final Result [facility] [address] [facility] [place] [address] * (ABNORMAL) CBC with auto differential (07/14/2025 7:48 AM CDT) WBC 13.80(H) 3.80 - 9.90 K/cumm Comment:Testing performed by : [facility], [address] [place] [address] Hgb 11.1(L) 13.0 - 17.5 g/dL GORAN YOUSSEFW Comment:Testing performed by : [place] [address], [address] [place] [address] Hct 34.8(L) 38.9 - 50.3 % GORAN RASHEED Comment:Testing performed by : [facility], [address] [place] [address] Plt 255 150 - 400 K/cumm [facility] Comment:Testing performed by : [place] [address], [address] [place] [address] MPV 10.0 9.1 - 12.3 fL GORAN YOUSSEFW Comment:Testing performed by : [facility], [address] [place] [address] RBC 3.81(L) 4.30 - 5.80 M/cumm GORAN RASHEEDCH Comment:Testing performed by : [facility], [address] [place] [address] MCV 91.3 81.3 - 96.4 fL CERNICHOLE BJWCH Comment:Testing performed by : [facility], [facility], [address] [place] [address] MCH 29.1 27.1 - 33.3 pg GORAN HELM Comment:Testing performed by : [facility], [facility], [address] [place] [address] MCHC 31.9(L) 32.3 - 35.7 g/dL GORAN HELM Comment:Testing performed by : [facility], [facility], [address] [place] [address] RDW CV 14.6 11.1 - 14.9 % GORAN HELM Comment:Testing performed by : [facility], [address] [place] [address] RDW SD 48.0 35.7 - 48.1 fL GORAN HELM Comment:Testing performed by : [facility], [facility], [address] [place] [address] ANC Prelim 12.29(H) 1.50 - 6.50 K/cumm GORAN HELM Comment: Interpretive Data The rapid ANC is a preliminary automated count and may vary from the final ANC (Neut Abs) reported in the WBC differential that follows. Current interpretive data was last revised 2024. Testing performed by: [facility], [facility], [address] [place] [address] Blood 07/14/2025 7:48 AM CDT 07/14/2025 7:50 AM CDT us Junaid Cifuentes MD PhD LAB BLOOD ORDERABLES Final Result [facility] [address] [facility] [employer] [place], [place] [address] * (ABNORMAL) PSA diagnostic (07/14/2025 7:48 AM [...] data last revised 22. Testing performed by: [facility], [address] [place] [address] Blood 07/14/2025 7:48 AM CDT 07/14/2025 8:19 AM CDT Junaid Cifuentes MD PhD LAB BLOOD ORDERABLES Final Result [facility] [address] [place] [address] * (ABNORMAL) Comprehensive metabolic panel (07/14/2025 7:48 AM CDT) Sodium 143 135 - 145 mmol/L Comment:Testing performed by : [facility], [address], [place] [address] Potassium, pl 4.3 3.3 - 4.9 mmol/L CERNICHOLE BJWCH Comment:Testing performed by : [facility], [address], [place] [address] Chloride 106 97 - 110 mmol/L CERNICHOLE BJWCH Comment:Testing performed by : [facility], [address] [place] [address] CO2 27 22 - 32 mmol/L CERNICHOLE BJWCH Comment:Testing performed by : [facility], [address] [place] [address] Anion gap 10 2 - 15 mmol/L GORAN BJWCH Comment:Testing performed by : [facility], [address] [place] [address] BUN 27(H) 6 - 25 mg/dL CERNICHOLE BJWCH Comment:Testing performed by : [facility], [address], [place] [address] Creatinine 0.71(L) 0.80 - 1.30 mg/dL CERNER BJWCH Comment:Testing performed by : [facility], [address], [place] [address] Glucose 125 70 - 199 mg/dL CERNER [...] was last revised 2022. Testing performed by: [facility], [address], [place] [address] Calcium 9.5 8.5 - 10.3 mg/dL CERNER BJWCH Comment:Testing performed by : [facility], [address], [place] [address] Bilirubin, total 0.2 0.1 - 1.2 mg/dL CERNER BJWCH Comment:Testing performed by : [facility], [address], [place] [address] Protein, pl 6.1(L) 6.5 - 8.5 g/dL CERNER BJWCH Comment:Testing performed by : [facility], [address], [place] [address] Albumin 3.8 3.5 - 5.0 g/dL CERNER BJWCH Comment:Testing performed by : [facility], [address], [place] [address] Alk phos 78 40 - 130 Units/L CERNER BJWCH Comment:Testing performed by : [facility], [address], [place] [address] ALT 14 7 - 55 Units/L CERNER BJWCH Comment:Testing performed by : [facility], [address] [place] [address] AST 16 10 - 50 Units/L GORAN HELM Comment:Testing performed by : [facility], [address] [place] [address] Blood 07/14/2025 7:48 AM CDT 07/14/2025 8:19 AM CDT Junaid Cifuentes MD PhD LAB BLOOD ORDERABLES Final Result Performing Organization Address [facility] Co de Phone Number [facility] [address] [place] [address] * eGFR (06/23/2025 8:10 AM CDT) eGFR [...] was last reviewed 2021. Testing performed by: [facility], [address] [place] [address] Blood 06/23/2025 8:10 AM CDT 06/23/2025 8:44 AM CDT us Junaid Cifuentes MD PhD LAB BLOOD ORDERABLES Final Result Performing Organization Address City/[facility]/ZIP Co de Phone Number [facility] [address] [address] [place] [address] * (ABNORMAL) Differential, auto (06/23/2025 8:10 AM CDT) Neutrophil abs 7.77(H) 1.50 - 6.50 K/cumm Comment:Testing performed by : [place] [address], [address] [place] [address] Imm gran abs 0.05 0.00 - 0.10 K/cumm CERNER BJWCH Comment:Testing performed by : [place] [address], [address] [place] [address] Lymphocyte abs 0.51(L) 0.80 - 3.30 K/cumm CERNER BJWCH Comment:Testing performed by : [place] [address], [address] [place] [address] Monocyte abs 0.45 0.20 - 0.80 K/cumm CERNER BJWCH Comment:Testing performed by : [place] [address], [address] [place] [address] Eosinophil abs 0.01 0.00 - 0.50 K/cumm CERNER BJWCH Comment:Testing performed by : [facility], [address] [place] [address] Basophil abs 0.02 0.00 - 0.10 K/cumm CERNER BJWCH Comment:Testing performed by : [place] [address], [address] [place] [address] Neutrophil pct 88.2 % CERNER BJWCH Comment: Interpretive Data Percent cell count reference ranges are not reported, since discordance with absolute values may lead to misinterpretation of CBC data. Current Interpretive Data was last revised on 2017. Testing performed by: [facility], [address] [place] [address] Imm gran pct 0.6 % CERNER BJWCH Comment: Interpretive Data Percent cell count reference ranges are not reported, since discordance with absolute values may lead to misinterpretation of CBC data. Current Interpretive Data was last revised on 2017. Testing performed by: [facility], [facility], [address] [place] [address] Lymphocyte pct 5.8 % CERNICHOLE HELM Comment: Interpretive Data Percent cell count reference ranges are not reported, since discordance with absolute values may lead to misinterpretation of CBC data. Current Interpretive Data was last revised on 2017. Testing performed by: [facility], [facility], [address] [place] [address] Monocyte pct 5.1 % CERNICHOLE HELM Comment: Interpretive Data Percent cell count reference ranges are not reported, since discordance with absolute values may lead to misinterpretation of CBC data. Current Interpretive Data was last revised on 2017. Testing performed by: [facility], [facility], [address] [place] [address] Eosinophil pct 0.1 % CERNICHOLE YOUSSEFESTEBAN Comment: Interpretive Data Percent cell count reference ranges are not reported, since discordance with absolute values may lead to misinterpretation of CBC data. Current Interpretive Data was last revised on 2017. Testing performed by: [facility], [facility], [address] [place] [address] Basophil pct 0.2 % GORAN HELM Comment: Interpretive Data Percent cell count reference ranges are not reported, since discordance with absolute values may lead to misinterpretation of CBC data. Current Interpretive Data was last revised on 2017. Testing performed by: [facility], [facility], [address] [place] [address] Blood 06/23/2025 8:10 AM CDT 06/23/2025 8:15 AM CDT us Junaid Cifuentes MD PhD LAB BLOOD ORDERABLES Final Result [facility] [address] [facility] [place] [address] * Iron profile w/ IBC (06/23/2025 8:10 AM CDT) [facility] Iron 68 50 - 150 mcg/dL Comment:Testing performed by : [facility], [address] [place] [address]., [address] TIBC 251 250 - 400 mcg/dL GORAN HELM Comment:Testing performed by : [facility], [address] [place] [address]., [address] Transferrin saturation 27 20 - 50 % GORAN HELM Comment:Testing performed by : [facility], [address] [place] [address]., [address] Blood 06/23/2025 8:10 AM CDT 06/23/2025 10:04 AM CDT Gladis Savage ASSESSMENT COORDINATOR LAB BLOOD ORDERABLES Final Result Performing Organization Address City/State/[facility] Co de Phone Number GORAN HELM [address] [facility] [place] [address] * (ABNORMAL) CBC with auto differential (06/23/2025 8:10 AM CDT) [facility] WBC 8.81 3.80 - 9.90 K/cumm Comment:Testing performed by : [facility], [address] [place] [address] Hgb 11.7(L) 13.0 - 17.5 g/dL GORAN HELM Comment:Testing performed by : [facility], [address] [place] [address] Hct 36.7(L) 38.9 - 50.3 % GORAN HELM Comment:Testing performed by : [facility], [facility], [address] [place] [address] Plt 298 150 - 400 K/cumm GORAN HELM Comment:Testing performed by : [facility], [address] [place] [address] MPV 9.8 9.1 - 12.3 fL CERNER BJWCH Comment:Testing performed by : [place] [address], [address] [place] [address] RBC 4.10(L) 4.30 - 5.80 M/cumm CERNER BJWCH Comment:Testing performed by : [place] [address] [place] [address] MCV 89.5 81.3 - 96.4 fL CERNER BJWCH Comment:Testing performed by : [place] [address] [place] [address] MCH 28.5 27.1 - 33.3 pg CERNER BJWCH Comment:Testing performed by : [place] [address] [place] [address] MCHC 31.9(L) 32.3 - 35.7 g/dL CERNER BJWCH Comment:Testing performed by : [place] [address] [place] [address] RDW CV 13.8 11.1 - 14.9 % CERNER BJWCH Comment:Testing performed by : [address] [place] [address] RDW SD 45.0 35.7 - 48.1 fL CERNER BJWCH Comment:Testing performed by : [place] [address] [place] [address] ANC Prelim 7.77(H) 1.50 - 6.50 K/cumm CERNER BJWCH Comment: Interpretive Data The rapid ANC is a preliminary automated count and may vary from the final ANC (Neut Abs) reported in the WBC differential that follows. Current interpretive data was last revised 2024. Testing performed by: [place] [address] [place] [address] Blood 06/23/2025 8:10 AM CDT 06/23/2025 8:15 AM CDT Junaid Cifuentes MD PhD LAB BLOOD ORDERABLES Final Result Performing Organization Address City/[facility]/ZIP Co de Phone Number [facility] [address] [facility]. [facility] [place] [address] * (ABNORMAL) PSA diagnostic (06/23/2025 8:10 AM [...] data last revised 22. Testing performed by: [facility], [address] [facility], [place] [address] Blood 06/23/2025 8:10 AM CDT 06/23/2025 8:44 AM CDT Gladis Savage NP LAB BLOOD ORDERABLES Final Result Performing Organization Address [facility] de Phone Number GORAN YOUSSEFCH [address] [facility]. [facility] [place] [address] * Ferritin (06/23/2025 8:10 AM CDT) Ferritin 239 30 - 400 ng/mL Comment:Testing performed by : [facility], [facility] [facility], [place]., [address] Blood 06/23/2025 8:10 AM CDT 06/23/2025 10:04 AM CDT Gladis Savage ASSESSMENT COORDINATOR LAB BLOOD ORDERABLES Final Result Performing Organization Address City/[facility] Co de Phone Number [facility] [address] [place] [address] * (ABNORMAL) Comprehensive metabolic panel (06/23/2025 8:10 AM CDT) Sodium 142 135 - 145 mmol/L Comment:Testing performed by : [facility], [address], [place] [address] Potassium, pl 4.2 3.3 - 4.9 mmol/L CERNER BJWCH Comment:Testing performed by : [facility], [address], [place] [address] Chloride 104 97 - 110 mmol/L CERNER BJWCH Comment:Testing performed by : [facility], [address], [place] [address] CO2 30 22 - 32 mmol/L CERNER BJWCH Comment:Testing performed by : [facility], [address], [place] [address] Anion gap 8 2 - 15 mmol/L CERNER BJWCH Comment:Testing performed by : [facility], [address], [place] [address] BUN 23 6 - 25 mg/dL CERNER BJWCH Comment:Testing performed by : [facility], [address], [place] [address] Creatinine 0.71(L) 0.80 - 1.30 mg/dL CERNER BJWCH Comment:Testing performed by : [facility], [address], [place] [address] Glucose 124 70 - 199 mg/dL CERNER [...] was last revised 2022. Testing performed by: [facility], [address], [place] [address] Calcium 9.8 8.5 - 10.3 mg/dL CERNER BJWCH Comment:Testing performed by : [facility], [address], [place] [address] Bilirubin, total 0.3 0.1 - 1.2 mg/dL CERNER BJWCH Comment:Testing performed by : [facility], [address], [place] [address] Protein, pl 6.5 6.5 - 8.5 g/dL CERNER BJWCH Comment:Testing performed by : [facility], [address], [place] [address] Albumin 4.1 3.5 - 5.0 g/dL CERNER BJWCH Comment:Testing performed by : [facility], [address], [place] [address] Alk phos 68 40 - 130 Units/L CERNER BJWCH Comment:Testing performed by : [facility], [address], [place] [address] ALT 12 7 - 55 Units/L CERNER BJWCH Comment:Testing performed by : [facility], [address], [place] [address] AST 18 10 - 50 Units/L CERNER BJWCH Comment:Testing performed by : [facility], [address], [place] [address] Blood 06/23/2025 8:10 AM CDT 06/23/2025 8:44 AM CDT us Junaid Cifuentes MD PhD LAB BLOOD ORDERABLES Final Result GORAN [facility] [address] [place] [address] * eGFR (06/16/2025 8:12 AM CDT) eGFR [...] was last reviewed 2021. Testing performed by: [facility], [address] [place] [address] Blood 06/16/2025 8:12 AM CDT 06/16/2025 8:46 AM CDT us Junaid Cifuentes MD PhD LAB BLOOD ORDERABLES Final Result [facility] [address] [place] [address] * (ABNORMAL) Differential, auto (06/16/2025 8:12 AM CDT) Neutrophil abs 10.94(H) 1.50 - 6.50 K/cumm Comment:Testing performed by : [facility], [facility] [address], [address] [place] [address] Imm gran abs 0.10 0.00 - 0.10 K/cumm GORAN HELM Comment:Testing performed by : [facility], [facility], [address] [place] [address] Lymphocyte abs 0.67(L) 0.80 - 3.30 K/cumm GORAN HELM Comment:Testing performed by : [facility], [facility], [address], [place] [address] Monocyte abs 0.87(H) 0.20 - 0.80 K/cumm CERNER BJWCH Comment:Testing performed by : [facility], [facility], [address] [place] [address] Eosinophil abs 0.00 0.00 - 0.50 K/cumm CERNER BJWCH Comment:Testing performed by : [facility], [facility], [address], [place] [address] Basophil abs 0.02 0.00 - 0.10 K/cumm CERNER BJWCH Comment:Testing performed by : [facility], [facility], [address] [place] [address] Neutrophil pct 86.8 % CERNER BJWCH Comment: Interpretive Data Percent cell count reference ranges are not reported, since discordance with absolute values may lead to misinterpretation of CBC data. Current Interpretive Data was last revised on 2017. Testing performed by: [facility], [facility], [address] [place] [address] Imm gran pct 0.8 % CERNER BJWCH Comment: Interpretive Data Percent cell count reference ranges are not reported, since discordance with absolute values may lead to misinterpretation of CBC data. Current Interpretive Data was last revised on 2017. Testing performed by: [facility], [facility], [address], [place] [address] Lymphocyte pct 5.3 % CERNER BJWCH Comment: Interpretive Data Percent cell count reference ranges are not reported, since discordance with absolute values may lead to misinterpretation of CBC data. Current Interpretive Data was last revised on 2017. Testing performed by: [facility], [facility], [address] [place] [address] Monocyte pct 6.9 % CERNER BJWCH Comment: Interpretive Data Percent cell count reference ranges are not reported, since discordance with absolute values may lead to misinterpretation of CBC data. Current Interpretive Data was last revised on 2017. Testing performed by: [facility], [facility], [address] [place] [address] Eosinophil pct 0.0 % GORAN HELM Comment: Interpretive Data Percent cell count reference ranges are not reported, since discordance with absolute values may lead to misinterpretation of CBC data. Current Interpretive Data was last revised on 2017. Testing performed by: [facility] 2, [address] [place] [address] Basophil pct 0.2 % GORAN HELM Comment: Interpretive Data Percent cell count reference ranges are not reported, since discordance with absolute values may lead to misinterpretation of CBC data. Current Interpretive Data was last revised on 2017. Testing performed by: [facility] 2, [address] [place] [address] Blood 06/16/2025 8:1 2 AM CDT 06/16/2025 8:20 AM CDT Junaid Cifuentes MD PhD LAB BLOOD ORDERABLES Final Result [facility] [address] [facility] Department [place] [address] * (ABNORMAL) CBC with auto differential (06/16/2025 8:12 AM CDT) WBC 12.60(H) 3.80 - 9.90 K/cumm Comment:Testing performed by : [facility], [facility], [address] [place] [address] Hgb 10.8(L) 13.0 - 17.5 g/dL GORAN HELM Comment:Testing performed by : [facility], [address] [place] [address] Hct 33.7(L) 38.9 - 50.3 % GORAN HELM Comment:Testing performed by : [facility] 2, [address] [place] [address] Plt 299 150 - 400 K/cumm CERNER BJWCH Comment:Testing performed by : [place] [address], [address] [place] [address] MPV 10.3 9.1 - 12.3 fL CERNER BJWCH Comment:Testing performed by : [place] [address], [address] [place] [address] RBC 3.73(L) 4.30 - 5.80 M/cumm CERNER BJWCH Comment:Testing performed by : [place] [address], [address], [place] [address] MCV 90.3 81.3 - 96.4 fL CERNER BJWCH Comment:Testing performed by : [place] [address], [address], [place] [address] MCH 29.0 27.1 - 33.3 pg CERNICHOLE BJWCH Comment:Testing performed by : [place] [address], [address], [place] [address] MCHC 32.0(L) 32.3 - 35.7 g/dL CERNER BJWCH Comment:Testing performed by : [place] [address], [address] [place] [address] RDW CV 13.2 11.1 - 14.9 % CERNICHOLE BJWCH Comment:Testing performed by : [address] [place] [address] RDW SD 43.7 35.7 - 48.1 fL CERNER BJWCH Comment:Testing performed by : [place] [address], [address], [place] [address] ANC Prelim 10.94(H) 1.50 - 6.50 K/cumm CERNER BJWCH Comment: Interpretive Data The rapid ANC is a preliminary automated count and may vary from the final ANC (Neut Abs) reported in the WBC differential that follows. Current interpretive data was last revised 2024. Testing performed by: [place] [address], [address] [place] [address] Blood 06/16/2025 8:12 AM CDT 06/16/2025 8:20 AM CDT Junaid Cifuentes MD PhD LAB BLOOD ORDERABLES Final Result Performing Organization Address [facility] Co de Phone Number GORAN YOUSSEF[facility] [phone] [facility] [address] * (ABNORMAL) PSA diagnostic (06/16/2025 8:12 AM [...] data last revised 22. Testing performed by: [facility], [address] [place] [address] Blood 06/16/2025 8:12 AM CDT 06/16/2025 8:46 AM CDT Junaid Cifuentes MD PhD LAB BLOOD ORDERABLES Final Result Performing Organization Address [facility] Co de Phone Number GORAN YOUSSE[facility] [address] [address] * (ABNORMAL) Comprehensive metabolic panel (06/16/2025 8:12 AM CDT) Sodium 141 135 - 145 mmol/L Comment:Testing performed by : [facility], [address] [place] [address] Potassium, pl 4.2 3.3 - 4.9 mmol/L GORAN HELM Comment:Testing performed by : [facility], [address], [place] [address] Chloride 103 97 - 110 mmol/L CERNER BJWCH Comment:Testing performed by : [facility], [address], [place] [address] CO2 29 22 - 32 mmol/L CERNER BJWCH Comment:Testing performed by : [facility], [address], [place] [address] Anion gap 9 2 - 15 mmol/L CERNER BJWCH Comment:Testing performed by : [facility], [address], [place] [address] BUN 22 6 - 25 mg/dL CERNER BJWCH Comment:Testing performed by : [facility], [address], [place] [address] Creatinine 0.72(L) 0.80 - 1.30 mg/dL CERNER BJWCH Comment:Testing performed by : [facility], [address], [place] [address] Glucose 133 70 - 199 mg/dL CERNER [...] was last revised 2022. Testing performed by: [facility], [address], [place] [address] Calcium 9.2 8.5 - 10.3 mg/dL CERNER BJWCH Comment:Testing performed by : [facility], [address], [place] [address] Bilirubin, total 0.2 0.1 - 1.2 mg/dL CERNER BJWCH Comment:Testing performed by : [facility], [address], [place] [address] Protein, pl 6.0(L) 6.5 - 8.5 g/dL CERNER BJWCH Comment:Testing performed by : [facility], [address], [place] [address] Albumin 3.8 3.5 - 5.0 g/dL CERNER BJWCH Comment:Testing performed by : [facility], [address], [place] [address] Alk phos 67 40 - 130 Units/L CERNER BJWCH Comment:Testing performed by : [facility], [address], [place] [address] ALT 12 7 - 55 Units/L CERNER BJWCH Comment:Testing performed by : [facility], [address], [place] [address] AST 17 10 - 50 Units/L CERNER BJWCH Comment:Testing performed by : [facility], [address], [place] [address] Blood 06/16/2025 8:12 AM CDT 06/16/2025 8:46 AM CDT Junaid Cifuentes MD PhD LAB BLOOD ORDERABLES Final Result [facility] [address] [place] [address] * SCAN - RADIOLOGY/IMAGING (06/14/2025) Anatomical Region [...] was last reviewed 2021. Testing performed by: [facility], [address] [place] [address] Blood 05/26/2025 7:55 AM CDT 05/26/2025 8:23 AM CDT us Junaid Cifuentes MD PhD LAB BLOOD ORDERABLES Final Result [facility] [address] Department of Laboratories [place] [phone] * (ABNORMAL) Differential, auto (05/26/2025 7:55 AM CDT) Neutrophil abs 7.67(H) 1.50 - 6.50 K/cumm Comment:Testing performed by : [facility], [facility], [address] [place] [address] Imm gran abs 0.04 0.00 - 0.10 K/cumm GORAN HELM Comment:Testing performed by : [facility] 2, [address] [place] [address] Lymphocyte abs 0.99 0.80 - 3.30 K/cumm GORAN HELM Comment:Testing performed by : [facility] 2, [address] [place] [address] Monocyte abs 0.58 0.20 - 0.80 K/cumm GORAN HELM Comment:Testing performed by : [facility] 2, [address] [place] [address] Eosinophil abs 0.00 0.00 - 0.50 K/cumm CERNER BJWCH Comment:Testing performed by : [facility], [facility], [address] [place] [address] Basophil abs 0.02 0.00 - 0.10 K/cumm CERNER BJWCH Comment:Testing performed by : [facility], [facility], [address] [place] [address] Neutrophil pct 82.6 % CERNER BJWCH Comment: Interpretive Data Percent cell count reference ranges are not reported, since discordance with absolute values may lead to misinterpretation of CBC data. Current Interpretive Data was last revised on 2017. Testing performed by: [facility], [facility], [address] [place] [address] Imm gran pct 0.4 % CERNER BJWCH Comment: Interpretive Data Percent cell count reference ranges are not reported, since discordance with absolute values may lead to misinterpretation of CBC data. Current Interpretive Data was last revised on 2017. Testing performed by: [facility], [facility], [address] [place] [address] Lymphocyte pct 10.6 % CERNER BJWCH Comment: Interpretive Data Percent cell count reference ranges are not reported, since discordance with absolute values may lead to misinterpretation of CBC data. Current Interpretive Data was last revised on 2017. Testing performed by: [facility] 2, [address] [place] [address] Monocyte pct 6.2 % CERNER BJWCH Comment: Interpretive Data Percent cell count reference ranges are not reported, since discordance with absolute values may lead to misinterpretation of CBC data. Current Interpretive Data was last revised on 2017. Testing performed by: [facility], [facility], [address] [place] [address] Eosinophil pct 0.0 % CERNER BJWCH Comment: Interpretive Data Percent cell count reference ranges are not reported, since discordance with absolute values may lead to misinterpretation of CBC data. Current Interpretive Data was last revised on 2017. Testing performed by: [facility], [address] [place] [address] Basophil pct 0.2 % GORAN HELM Comment: Interpretive Data Percent cell count reference ranges are not reported, since discordance with absolute values may lead to misinterpretation of CBC data. Current Interpretive Data was last revised on 2017. Testing performed by: [facility] 2, [address] [place] [address] Blood 05/26/2025 7:55 AM CDT 05/26/2025 7:56 AM CDT us Junaid Cifuentes MD PhD LAB BLOOD ORDERABLES Final Result GORAN HELM [address] [facility]. [place] [address] * (ABNORMAL) CBC with auto differential (05/26/2025 7:55 AM CDT) WBC 9.30 3.80 - 9.90 K/cumm Comment:Testing performed by : [facility] 2, [address] [place] [address] Hgb 14.1 13.0 - 17.5 g/dL GORAN HELM Comment:Testing performed by : [address] [place] [address] Hct 43.1 38.9 - 50.3 % GORAN HELM Comment:Testing performed by : [place] [address], [address] [place] [address] Plt 211 150 - 400 K/cumm GORAN HELM Comment:Testing performed by : [place] [address], [address] [place] [address] MPV 10.1 9.1 - 12.3 fL GORAN HELM Comment:Testing performed by : [place] [address], [address] [place] [address] RBC 4.81 4.30 - 5.80 M/cumm [facility] Comment:Testing performed by : [facility], [facility], [address] [place] [address] MCV 89.6 81.3 - 96.4 fL [facility] Comment:Testing performed by : [facility], [facility], [address] [place] [address] MCH 29.3 27.1 - 33.3 pg [facility] Comment:Testing performed by : [facility], [facility], [address] [place] [address] MCHC 32.7 32.3 - 35.7 g/dL [facility] Comment:Testing performed by : [facility], [facility], [address] [place] [address] RDW CV 12.7 11.1 - 14.9 % [facility] Comment:Testing performed by : [facility] 2, [address] [place] [address] RDW SD 41.5 35.7 - 48.1 fL [facility] Comment:Testing performed by : [facility], [facility], [address] [place] [address] ANC Prelim 7.67(H) 1.50 - 6.50 K/cumm [facility] Comment: Interpretive Data The rapid ANC is a preliminary automated count and may vary from the final ANC (Neut Abs) reported in the WBC differential that follows. Current interpretive data was last revised 2024. Testing performed by: [facility], [facility], [address] [place] [address] Blood 05/26/2025 7:55 AM CDT 05/26/2025 7:56 AM CDT us Junaid Cifuentes MD PhD LAB BLOOD ORDERABLES Final Result [facility] [address] [facility] [place], [place] [id number] * 1,25 Dihydroxycholecalciferol (05/26/2025 7:55 AM CDT) Pathologist [facility] 1-25-di-OH Vit D 35 18 - 64 pg/mL [facility] Comment: ADDITIONAL INFORMATION This test was developed and its performance characteristics determined by [facility] in a manner consistent with CLIA requirements. This test has not been cleared or approved by the U.S. Food and Drug Administration. Test Performed by: [facility] Laboratories - [facility] [address] [place] [address] Crime Lab Analyst: Angelique Gomez Ph.D.; CLIA# [id number] Testing performed by: [facility], [address] [place] [address] Blood 05/26/2025 7:55 AM CDT 05/26/2025 10:06 AM CDT us Junaid Cifuentes MD PhD LAB BLOOD ORDERABLES Final Result [facility]ORAN [facility] [address] [place] [address] [facility] [facility] * (ABNORMAL) PSA diagnostic (05/26/2025 7:55 AM CDT) Pathologist [facility] PSA-Total 47.94(H) <=6.20 ng/mL Comment: Interpretive Data [...] data last revised 22. Testing performed by: [facility], [address], [place] [address] Blood 05/26/2025 7:55 AM CDT 05/26/2025 8:23 AM CDT us Junaid Cifuentes MD PhD LAB BLOOD ORDERABLES Final Result [facility] [address] [place] [address] * (ABNORMAL) Comprehensive metabolic panel (05/26/2025 7:55 AM CDT) Sodium 141 135 - 145 mmol/L Comment:Testing performed by : [facility], [address], [place] [address] Potassium, pl 4.3 3.3 - 4.9 mmol/L CERNICHOLE BJWCH Comment:Testing performed by : [facility], [address], [place] [address] Chloride 101 97 - 110 mmol/L CERNICHOLE BJWCH Comment:Testing performed by : [facility], [address], [place] [address] CO2 30 22 - 32 mmol/L CERNICHOLE BJWCH Comment:Testing performed by : [facility], [address], [place] [address] Anion gap 10 2 - 15 mmol/L CERNICHOLE BJWCH Comment:Testing performed by : [facility], [address], [place] [address] BUN 22 6 - 25 mg/dL CERNICHOLE BJWCH Comment:Testing performed by : [facility], [address], [place] [address] Creatinine 0.90 0.80 - 1.30 mg/dL CERNER BJWCH Comment:Testing performed by : [facility], [address], [place] [address] Glucose 152 70 - 199 mg/dL CERNER [...] was last revised 2022. Testing performed by: [facility], [address], [place] [address] Calcium 9.6 8.5 - 10.3 mg/dL CERNER BJWCH Comment:Testing performed by : [facility], [address], [place] [address] Bilirubin, total 0.3 0.1 - 1.2 mg/dL CERNER BJWCH Comment:Testing performed by : [facility], [address], [place] [address] Protein, pl 6.4(L) 6.5 - 8.5 g/dL CERNER BJWCH Comment:Testing performed by : [facility], [address], [place] [address] Albumin 4.4 3.5 - 5.0 g/dL CERNER BJWCH Comment:Testing performed by : [facility], [address], [place] [address] Alk phos 76 40 - 130 Units/L CERNER BJWCH Comment:Testing performed by : [facility], [address], [place] [address] ALT 19 7 - 55 Units/L CERNER BJWCH Comment:Testing performed by : [facility], [address], [place] [address] AST 18 10 - 50 Units/L CERNER BJWCH Comment:Testing performed by : [facility], [address], [place] [address] Blood 05/26/2025 7:55 AM CDT 05/26/2025 8:23 AM CDT Junaid Cifuentes MD PhD LAB BLOOD ORDERABLES Edited Result - Final GORAN HELM [address] Department of Laboratories [place], [place] [id number] * (ABNORMAL) Urinalysis reflex to microscopic (05/05/2025 8:30 AM CDT) Color, ur Straw Yellow Comment:Testing performed by : [facility], [address], [place] [address] Clarity, ur Clear Clear CERNICHOLE BJWCH Comment:Testing performed by : [facility], [address], [place] [address] Specific gravity, ur 1.022 1.003 - 1.030 GORAN BJWCH Comment:Testing performed by : [facility], [address], [place] [address] pH, urine 6.0 GORAN BJWCH Comment: Interpretive Data U rine pH is affected by diet, medications, systemic acid-base disturbances, and renal tubular function. pH may affect urinary stone formation. For example, urine pH below 6.0 may help reduce the tendency for calcium phosphate stones and pH greater than 6.0 may reduce the tendency for uric acid stone formation. Source: [facility] Current Interpretive Data was last revised on 2017 Testing performed by: [facility], [address], [place] [address] Protein, ur ql 1+(A) Negative CERNER BJWCH Comment:Testing performed by : [facility], [address], [place] [address] Glucose, ur ql Negative Negative CERNER BJWCH Comment:Testing performed by : [facility], [address], [place] [address] Ketones, ur Negative Negative CERNER BJWCH Comment:Testing performed by : [facility], [address], [place] [address] Bilirubin, ur Negative Negative CERNER BJWCH Comment:Testing performed by : [facility], [address], [place] [address] Blood, ur 2+(A) Negative CERNER BJWCH Comment:Testing performed by : [facility], [address], [place] [address] Urobilinogen, ur <2.0 <2.0 mg/dL GORAN HELM Comment:Testing performed by : [facility], [address], [place] [address] Nitrite, ur Negative Negative GORAN HELM Comment:Testing performed by : [facility], [address], [place] [address] Leukocyte esterase, ur Negative Negative GORAN HELM Comment:Testing performed by : [facility], [address], [place] [address] UA reflex comment Reflex to microscopic UA will be performed. GORAN HELM Comment:Testing performed by : [facility], [address], [place] [address] Urine 05/05/2025 8:30 AM CDT 05/05/2025 9:20 AM CDT Junaid Cifuentes MD PhD LAB URINE ORDERABLES Final Result GORAN HELM [address] [place] [address] * (ABNORMAL) Urinalysis, microscopic only (05/05/2025 8:30 AM CDT) WBC, ur 0-5 0 - 5 /HPF Comment:Testing performed by : [facility], [address], [place] [address] RBC, ur 6-10(A) 0 - 2 /HPF GORAN HELM Comment:Testing performed by : [facility], [address], [place] [address] Mucous, ur Present(A) GORAN HELM Comment:Testing performed by : [facility], [address], [place] [address] Urine 05/05/2025 8:30 AM CDT 05/05/2025 9:20 AM CDT Junaid Cifuentes MD PhD LAB URINE ORDERABLES Final Result Performing Organization Address [facility] Co de Phone Number GORAN HELM [address] [facility]. [place] [address] * eGFR (05/05/2025 8:28 AM CDT) eGFR [...] was last reviewed 2021. Testing performed by: [facility] [facility], [address] [place] [address], [place] [address] Blood 05/05/2025 8:28 AM CDT 05/05/2025 8:49 AM CDT Junaid Cifuentes MD PhD LAB BLOOD ORDERABLES Final Result Performing Organization Address City/[facility] Co de Phone Number GORAN [facility] [address] [facility] [address] * (ABNORMAL) Differential, auto (05/05/2025 8:28 AM CDT) Neutrophil abs 5.58 1.50 - 6.50 K/cumm Comment:Testing performed by : [facility], M[facility] [address], [address] [place] [address] Imm gran abs 0.03 0.00 - 0.10 K/cumm CERNER BJWCH Comment:Testing performed by : [facility], [facility], [address] [place] [address] Lymphocyte abs 0.47(L) 0.80 - 3.30 K/cumm CERNER BJWCH Comment:Testing performed by : [facility], [facility], [address] [place] [address] Monocyte abs 0.38 0.20 - 0.80 K/cumm CERNER BJWCH Comment:Testing performed by : [facility], [facility], [address] [place] [address] Eosinophil abs 0.01 0.00 - 0.50 K/cumm CERNER BJWCH Comment:Testing performed by : [facility], [address] [place] [address] Basophil abs 0.01 0.00 - 0.10 K/cumm CERNER BJWCH Comment:Testing performed by : [facility], [facility], [address] [place] [address] Neutrophil pct 85.9 % CERNER BJWCH Comment: Interpretive Data Percent cell count reference ranges are not reported, since discordance with absolute values may lead to misinterpretation of CBC data. Current Interpretive Data was last revised on 2017. Testing performed by: [facility], [facility], [address] [place] [address] Imm gran pct 0.5 % CERNER BJWCH Comment: Interpretive Data Percent cell count reference ranges are not reported, since discordance with absolute values may lead to misinterpretation of CBC data. Current Interpretive Data was last revised on 2017. Testing performed by: [facility], [facility], [address] [place] [address] Lymphocyte pct 7.3 % CERNER BJWCH Comment: Interpretive Data Percent cell count reference ranges are not reported, since discordance with absolute values may lead to misinterpretation of CBC data. Current Interpretive Data was last revised on 2017. Testing performed by: [facility], [facility], [address] [place] [address] Monocyte pct 5.9 % GORAN HELM Comment: Interpretive Data Percent cell count reference ranges are not reported, since discordance with absolute values may lead to misinterpretation of CBC data. Current Interpretive Data was last revised on 2017. Testing performed by: [facility], [facility], [address] [place] [address] Eosinophil pct 0.2 % GORAN HELM Comment: Interpretive Data Percent cell count reference ranges are not reported, since discordance with absolute values may lead to misinterpretation of CBC data. Current Interpretive Data was last revised on 2017. Testing performed by: [facility], [facility], [address] [place] [address] Basophil pct 0.2 % GORAN HELM Comment: Interpretive Data Percent cell count reference ranges are not reported, since discordance with absolute values may lead to misinterpretation of CBC data. Current Interpretive Data was last revised on 2017. Testing performed by: [facility], [facility], [address] [place] [address] Blood 05/05/2025 8:28 AM CDT 05/05/2025 8:34 AM CDT Junaid Cifuentes MD PhD LAB BLOOD ORDERABLES Final Result [facility] [address] [facility] Department [place] [address] * CBC with auto differential (05/05/2025 8:28 AM CDT) WBC 6.48 3.80 - 9.90 K/cumm Comment:Testing performed by : [facility], [facility], [address] [place] [address] Hgb 13.5 13.0 - 17.5 g/dL CERNER BJWCH Comment:Testing performed by : [facility], [facility], [address], [place] [address] Hct 40.5 38.9 - 50.3 % CERNER BJWCH Comment:Testing performed by : [facility], [address], [place] [address] Plt 199 150 - 400 K/cumm CERNER BJWCH Comment:Testing performed by : [place] [address], [address], [place] [address] MPV 10.5 9.1 - 12.3 fL CERNER BJWCH Comment:Testing performed by : [place] [address], [address], [place] [address] RBC 4.61 4.30 - 5.80 M/cumm CERNER BJWCH Comment:Testing performed by : [place] [address], [address], [place] [address] MCV 87.9 81.3 - 96.4 fL CERNER BJWCH Comment:Testing performed by : [place] [address], [address], [place] [address] MCH 29.3 27.1 - 33.3 pg CERNER BJWCH Comment:Testing performed by : [place] [address], [address] [place] [address] MCHC 33.3 32.3 - 35.7 g/dL CERNER BJWCH Comment:Testing performed by : [place] [address], [address], [place] [address] RDW CV 12.5 11.1 - 14.9 % CERNER BJWCH Comment:Testing performed by : [place] [address], [address], [place] [address] RDW SD 40.3 35.7 - 48.1 fL CERNER BJWCH Comment:Testing performed by : [place] [address], [address], [place] [address] ANC Prelim 5.58 1.50 - 6.50 K/cumm GORAN HELM Comment: Interpretive Data The rapid ANC is a preliminary automated count and may vary from the final ANC (Neut Abs) reported in the WBC differential that follows. Current interpretive data was last revised 2024. Testing performed by: [facility], [facility] [address], [address], [place] [address] Blood 05/05/2025 8:28 AM CDT 05/05/2025 8:34 AM CDT Junaid Cifuentes MD PhD LAB BLOOD ORDERABLES Final Result Performing Organization Address City/[facility]/ZIP Co de Phone Number [facility] [address] [facility]. [facility] [place] [address] * Uric acid (05/05/2025 8:28 AM CDT) Uric acid 3.5 3.0 - 8.0 mg/dL Comment:Testing performed by : [facility], [address], [place] [address] Blood 05/05/2025 8:28 AM CDT 05/05/2025 8:49 AM CDT Junaid Cifuentes MD PhD LAB BLOOD ORDERABLES Final Result Performing Organization Address City/[facility] Co de Phone Number [facility] [address] [facility]. [facility] [place] [address] * Triglycerides (05/05/2025 8:28 AM CDT) Triglycerides [...] last revised on 2018. Testing performed by: [facility], [address] [place], [place] [address] [address] Blood 05/05/2025 8:28 AM CDT 05/05/2025 8:49 AM CDT Junaid Cifuentes MD PhD LAB BLOOD ORDERABLES Final Result Performing Organization Address City/[facility] Co de Phone Number [facility] [address] [facility]. [facility] [place] [address] * (ABNORMAL) PSA diagnostic (05/05/2025 8:28 AM CDT) Pathologist [facility] PSA-Total 61.58(H) <=6.20 ng/mL Comment: Interpretive Data [...] data last revised 22. Testing performed by: [facility], [address] [place] [address] [place] [address] Blood 05/05/2025 8:28 AM CDT 05/05/2025 8:49 AM CDT us Junaid Cifuentes MD PhD LAB BLOOD ORDERABLES Final Result Performing Organization Address City/[facility] Co de Phone Number GORAN BJWCH [address] [facility]. [facility] [place] [address] * Phosphorus (05/05/2025 8:28 AM CDT) Pathologist [facility] Phosphorus, pl 3.3 2.3 - 4.5 mg/dL Comment:Testing performed by : [facility], [address] [place] [address] Blood 05/05/2025 8:28 AM CDT 05/05/2025 8:49 AM CDT Junaid Cifuentes MD PhD LAB BLOOD ORDERABLES Final Result Performing Organization Address City/[facility]/ZIP Co de Phone Number [facility] [address] [address]. [facility] [place] [address] * Lactate dehydrogenase (LD) (05/05/2025 8:28 AM CDT) [facility] Lactate dehydrogenase (LDH) 154 100 - 250 Units/L Comment:Testing performed by : [facility], [address] [place] [address] [place] [address] Blood 05/05/2025 8:2 8 AM CDT 05/05/2025 8:49 AM CDT Junaid Cifuentes MD PhD LAB BLOOD ORDERABLES Final Result Performing Organization Address [facility] Co de Phone Number [facility] [address] [facility]. [facility] [place] [address] * (ABNORMAL) Creatine kinase (CK), total (05/05/2025 8:28 AM CDT) [facility] CK 28(L) 40 - 300 Units/L Comment:Testing performed by : [facility], [address] [facility], [place] [address] Blood 05/05/2025 8:28 AM CDT 05/05/2025 8:49 AM CDT Junaid Cifuentes MD PhD LAB BLOOD ORDERABLES Final Result Performing Organization Address City/[facility] Co de Phone Number GORAN BJWCH [address] [facility]. [facility] [place] [address] * (ABNORMAL) Comprehensive metabolic panel (05/05/2025 8:28 AM CDT) Sodium 141 135 - 145 mmol/L Comment:Testing performed by : [facility], [address], [place] [address] Potassium, pl 4.0 3.3 - 4.9 mmol/L CERNER BJWCH Comment:Testing performed by : [facility], [address], [place] [address] Chloride 102 97 - 110 mmol/L CERNER BJWCH Comment:Testing performed by : [facility], [address], [place] [address] CO2 28 22 - 32 mmol/L CERNER BJWCH Comment:Testing performed by : [facility], [address], [place] [address] Anion gap 11 2 - 15 mmol/L CERNER BJWCH Comment:Testing performed by : [facility], [address], [place] [address] BUN 18 6 - 25 mg/dL CERNER BJWCH Comment:Testing performed by : [facility], [address], [place] [address] Creatinine 0.70(L) 0.80 - 1.30 mg/dL CERNER BJWCH Comment:Testing performed by : [facility], [address], [place] [address] Glucose 142 70 - 199 mg/dL CERNER [...] was last revised 2022. Testing performed by: [facility], [address], [place] [address] Calcium 9.5 8.5 - 10.3 mg/dL CERNER BJWCH Comment:Testing performed by : [facility], [address], [place] [address] Bilirubin, total 0.3 0.1 - 1.2 mg/dL CERNER BJWCH Comment:Testing performed by : [facility], [address], [place] [address] Protein, pl 6.8 6.5 - 8.5 g/dL CERNER BJWCH Comment:Testing performed by : [facility], [address], [place] [address] Albumin 4.3 3.5 - 5.0 g/dL CERNER BJWCH Comment:Testing performed by : [facility], [address], [place] [address] Alk phos 74 40 - 130 Units/L CERNER BJWCH Comment:Testing performed by : [facility], [address], [place] [address] ALT 16 7 - 55 Units/L CERNER BJWCH Comment:Testing performed by : [facility], [address], [place] [address] AST 22 10 - 50 Units/L CERNER BJWCH Comment:Testing performed by : [facility], [address], [place] [address] Blood 05/05/2025 8:28 AM CDT 05/05/2025 8:49 AM CDT us Junaid Cifuentes MD PhD LAB BLOOD ORDERABLES Final Result [facility] [address] [place] [address] * IR Port Placement Chest > 5 Years (04/28/2025 10:13 AM CDT) Anatomical Region Laterality Modality Chest N/A X-Ray Angiograph y 04/28/2025 10:3 9 AM CDT Impressions 04/28/2025 10:39 AM CDT Successful chest wall port placement. PLAN: The catheter is ready for immediate use. Please note that a power injectable port was placed. When treatment is completed, removal can be scheduled by calling [facility] - [phone] [facility] - [phone] Electronically signed by: Donal Carrillo PA-C Narrative [...] was obtained. Prior to beginning the procedure, [place] Protocol was used to confirm the patient's [...] was obtained. Prior to beginning the procedure, [place] Protocol was used to confirm the patient's [...] completed, removal can be scheduled by calling [facility] - [phone] [facility] - [phone] Electronically signed by: Donal Carrillo PA-C Junaid Cifuentes MD PhD IMG IR PROCEDURES Fin al Result from Last 3 Months Insurance MEDICARE [facility] MEDICARE [employer] [place] [employer] [place] Care Teams Engineer Booster And Exhauster Relationship Specialty Start Date End Date Arvind Castellanos MD PCP - General 12/24/17 Patrick Perez MD [address] [address] Urology 07/27/21
--- OUTSIDE RECORDS SUMMARY | 2025-07-23 14:35 | XMS_ITS ---
Author Organization [facility] Address [address] [place] [address] Care Team Providers Care Senior Ssis Developer Name Role Phone Arvind Castellanos MD Primary Care Provider [phone] Patrick Perez MD Unavailable [phone] Active Problems Problem Noted Date Diagnosed Date [...] Treatment Medications Discontinue Reason Plan Provider Cycles [id number] - [facility] - - [id number] PART 1B DOSE EXPANSION ARM Cohort 11&13(Q3W x 4 induction cycles, Q6W maintenance) - ARX 517 5 04/14/2025 INV-[facility] (/A [id number]) [id number] IVPB in 250 mLINV-[facility] brimonidine 0.2 % (/A [id number])[facility]V -[facility] Systane Complete PF (/A [id number])INV -[facility] Systane Nighttime Lubricant (/A [id number]) Progressive Disease Kemal Guillaume MD 7 of 8 cycles started Sipuleucel-T 14 Day Cycles - Prostate 01/24/2024 05/05/2024 cpbtlrstio-G-i actated ringers (PROVENGE) >50 million cell/250 mL [...]
--- OUTSIDE RECORDS SUMMARY | 2025-07-23 14:35 | XMS_ITS | Encounter Summary ---
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
--- OUTSIDE RECORDS SUMMARY | 2025-07-23 14:35 | XMS_ITS ---
Author Organization [facility] Address [address] [place] [address] Phone Care Team Providers Care Multimedia Engineer Name Role Phone Arvind Castellanos MD Primary Care Provider [phone] Active Problems Problem Noted Date Diagnosed Date [...]
--- OUTSIDE RECORDS SUMMARY | 2025-07-23 14:35 | XMS_ITS | Clinical Summary ---
Author Organization [facility] Address [address] [place] [address] Care Team Providers Care Collection Manager Name Role Phone Unavailable Primary Care Provider Unavailabl e Source Comments [facility] [employer],non-owned Affiliates and Associated Physician Practices is amultiple site organization consisting of ambulatory clinics and hospital sitesin [place], [place], [place] and [place]. This disclosure is being madepursuant to the Care Everywhere program and may not contain all information available regarding this patient. 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
--- OUTSIDE RECORDS SUMMARY | 2025-07-23 14:35 | XMS_ITS | Encounter Summary ---
Author Organization [facility] Address [address] [place] [address] Phone Care Team Providers Care Hinging Machine Operator Name Role Phone Arvind Castellanos MD Primary Care Provider [phone] Patrick Perez MD Unavailable [phone] Encounter Details Date Type Department Care Team (Late st Contact Info) Description 02/01/2023 Telephone [facility] Medicine Oncology [address] [facility] [address] [place] [phone] Sandra Davila., B.A. 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
--- OUTSIDE RECORDS SUMMARY | 2025-07-23 14:35 | XMS_ITS | Encounter Summary ---
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
[2025-07-23 14:36] VITALS: BMI 17.6
--- NOTE | 2025-07-23 14:42 | ADMGEN ---
This patient, Mayank Collazo, was admitted to Medical Room 242-01. Patient/family oriented to hospital policies and general routines including ID bracelet, bed and alarms, visiting hours, pain management, procedures, bathroom and other care routines, personal items, smoking policy, room service/diet, and visiting hours. Information on how to activate the Rapid Response Team has been discussed. Patient/Family are encouraged to report perceived risks to care and to ask questions if they do not understand what they are told or what they should do.
[2025-07-23 14:43] VITALS: BP 148/66; PULSE 75; RESP 16; TEMP 36.4; O2SAT 98
--- NOTE | 2025-07-23 15:16 | P.HP_ITS ---
H&P: HPI History of Present Illness Date/Time: 07/23/25 15:16 Chief Complaint: Hip pain fall Narrative: This is a 70-year-old male who presented to the ED after a fall on 07/22/2025 initially where he was diagnosed with bilateral distal radial fractures. He had a splint placed and was sent back home to follow-up with orthopedics as an outpatient basis. He came back to ED within our with left hip pain. X-rays of the left hip was done which did not show any acute fracture. And was discharged back. He comes back again today 07/23/2025 with ongoing left hip pain and inability to stand or bear weight. He denied and any other injury. In the ED is vitals were stable except for mild hypertension and tachycardia. Laboratory workup revealed WBC of 14.9 hemoglobin 11.2 platelet count 264. Chem panel showed sodium of 141 potassium 3.9 chloride 102 bicarbonate 31 BUN 21 creatinine 0.8 and blood sugar of 117. LFTs were normal. Urinalysis was negative for you UTI. Lipase was normal at 32. A CT pelvis was performed which showed bilateral avascular necrosis of hip. In this setting case was discussed and was planned to have evaluation with Orthopedics here at [place] and hence getting transferred here for further treatment. Review of Systems Review of Systems: - CONSTITUTIONAL: Denies weight loss, fe giovanny and chills. - HEENT: Denies changes in vision and he aring - RESPIRATORY: Denies SOB and cough. - CV: Denies palpitations and CP. - GI: Denies abdominal pain, nausea, vom iting and diarrhea. - : Denies dysuria and urinary frequen cy. - MSK: Reports bilateral wrist pain and more severe left hip pain - SKIN: Denies rash and pruritus. - NEUROLOGICAL: Denies headache and sync ope. Reports fall - PSYCHIATRIC: Denies recent changes in mood. Denies anxiety and depression. [facility] Past Medical History Medical History Colles' fracture of left radius, initial encounter for closed fracture Family History Family History Other Family history of cardiovascular disease Family history of malignant neoplasm Hypertension Social History Social History Smoking status: Current some day smoker Smokeless tobacco user: other Additional smoking assessment comments: Marijuana Alcohol intake: never Substance use: current Substance use type: marijuana Other substance usage details: Daily Last use: 07/22 Lack of Transportation: No Lack of Food: Never True Current Housing: I Have Housing Concerned About Future Housing: No Difficulty Paying Gas/Electric Bills: No Difficulty Paying for Meds: No Currently Unemployed: No Education: Associate Degree Difficulty w/ Childcare or Family Care: No Living arrangements: with family Spiritual care concerns: No Meds Home Medications and Allergies Home Medications ?Medication ?Instructions ?Recorded ?Confirmed ?Type ergocalciferol (vitamin D2) 1,250 1,250 mcg PO DAILY 0 12/24/21 07/23/25 History mcg (50,000 unit) capsule hydrocodone 7.5 mg-acetaminophen 1 tablet PO Q4-6H PRN Pain 12/24/21 07/23/25 History 325 mg tablet leuprolide 3.75 mg intramuscular See Rx Instructions . Route .COMPLEX 12/24/21 07/23/25 History pantoprazole 40 mg tablet,delayed 40 mg PO BID 3 07/23/25 History release olanzapine 5 mg tablet 5 mg PO QPM 06/03/25 5 History prednisone 10 mg tablet 10 mg PO DAILY 06/03/2506/25 History lisinopril 20 mg tablet 20 mg PO DAILY 07/23/2506/25 History metoprolol succinate 25 mg 25 mg PO DAILY 07/23/25 History tablet,extended release 24 hr prochlorperazine maleate 10 mg 10 mg PO BID 07/23/25 1 History tablet (Compazine) solifenacin 5 mg tablet (Vesicare) 5 mg PO DAILY 07/2307/23/25 History Allergies Allergy/AdvReac Type Severity Reaction Status Date / Time meperidine AdvReac Nausea and Verified 07/23/25 14:57 Vomiting Vital Signs Vital Signs - 24 hr 07/23/25 14:43 Temperature 97.5 F L Pulse Rate 75 Respiratory Rate 16 Blood Pressure 148/66 H Pulse Oximetry 98 Exam Narrative: GENERAL: The patient is well developed, not in acute distress HEENT: Nonicteric sclerae, PERRLA, EOMI. Oropharynx clear. Moist mucous membranes. Conjunctivae appear well perfused. CHEST: Chest wall is nontender. HEART: Regular rate and rhythm without murmur, rubs, or gallops LUNGS: Clear to auscultation bilaterally. no respiratory distress ABDOMEN: Soft, positive bowel sounds, non-tender, no organomegaly. SKIN: No rash, no excessive bruising, petechiae, or purpura. NEUROLOGIC: Cranial nerves II-XII intact, alert and oriented x 3, no gross motor deficits EXTREMITIES: no edema, cyanosis or clubbing Bilateral forearm with splint Left hip tender anteriorly restricted range of motion Assessment and Plan Assessment and plan (1) Fracture of wrist: Qualifiers: Encounter type: initial encounter Fracture type: closed Laterality: unspecified laterality Qualified Code(s): S62.109A - Fracture of unspecified carpal bone, unspecified wrist, initial encounter for closed fracture Code(s): S62.109A - Fracture of unspecified carpal bone, unspecified wrist, initial encounter for closed fracture Status: Acute (2) Avascular necrosis of femoral head: Qualifiers: Laterality: unspecified laterality Qualified Code(s): M87.059 - Idiopathic aseptic necrosis of unspecified femur Code(s): M87.059 - Idiopathic aseptic necrosis of unspecified femur Status: Acute Plan This is a 70-year-old male who presented to the ED after a fall on 07/22/2025 initially where he was diagnosed with bilateral distal radial fractures. He had a splint placed and was sent back home to follow-up with orthopedics as an outpatient basis. He came back to ED within our with left hip pain. X-rays of the left hip was done which did not show any acute fracture. And was discharged back. He comes back again today 07/23/2025 with ongoing left hip pain and inability to stand or bear weight. He denied and any other injury. In the ED is vitals were stable except for mild hypertension and tachycardia. Laboratory workup revealed WBC of 14.9 hemoglobin 11.2 platelet count 264. Chem panel showed sodium of 141 potassium 3.9 chloride 102 bicarbonate 31 BUN 21 creatinine 0.8 and blood sugar of 117. LFTs were normal. Urinalysis was negative for you UTI. Lipase was normal at 32. A CT pelvis was performed which showed bilateral avascular necrosis of hip. In this setting case was discussed and was planned to have evaluation with Orthopedics here at [place] and hence getting transferred here for further treatment. Fall injury Bilateral distal radius fracture orthopedic consulted currently on splint planned surgery on Saturday Left hip pain likely due to fall no acute fracture CT pelvis with avascular necrosis of bilateral hips right more than left. Likely is a muscular injury. Will get MRI to further evaluate. PT OT to see. Will have Orthopedics evaluate for this as well. New ill-defined sclerotic lesion in left ilium check PSA level will need further evaluation with bone scan. Recent PSA in 9 days ago was 16.8. 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 Likely due to underlying moderate to severe osteoarthritis. He seems to be on a chronic steroid therapy as well. Previous scans have also revealed these findings Hypertension History of prostate cancer status post radiation therapy and chemo Osteoporosis GERD DVT prophylaxis Lovenox Code status full code Hospitalist [facility] Advance Care Plan I have confirmed that the patient's Advanced Care Plan is present, code status is documented, or surrogate decision maker is listed in patient medical record.: Yes Medication Reconciliation I have utilized all available resources to obtain, update and review the patients current medications (includes all prescriptions, OTC, herbals, can nabis, and nutritional supplements).: Yes
[2025-07-23 15:32] VITALS: BMI 17.6
[2025-07-23] MEDS: MORPHINE SULFATE (*CRX) 4 MG/ML INJ 2 MG IV PUSH (16:03)
[2025-07-23] MEDS: PROCHLORPERAZINE MALEATE 5 MG TABLET 10 MG PO (17:43)
[2025-07-23 19:50] VITALS: BP 131/65; PULSE 81; RESP 18; TEMP 36.8; O2SAT 97
--- NOTE | 2025-07-23 21:12 | PC.NURSE ---
Pt has not had documented output since arrival to unit. Pt CT scan results included moderately distended bladder, pt states some sensation to void but unable to at this time. Pt bladder scan shows 389ml, pt was able to void 200ml post scan. Purewick applied to monitor retention closely.
[2025-07-23] MEDS: HYDROcodone/acetaminophen (*CRX) 7.5-325 MG TABLET 1 TAB PO (23:06)
[2025-07-23] MEDS: PANTOPRAZOLE 40 MG TABLET PO (23:07)
[2025-07-23] MEDS: CENTRAL LINE FLUSH 10 ML IV PUSH (23:07)
[2025-07-24 04:22] VITALS: BP 139/68; PULSE 75; RESP 18; TEMP 36.8; O2SAT 97
[2025-07-24] MEDS: HYDROcodone/acetaminophen (*CRX) 7.5-325 MG TABLET 1 TAB PO ×3 (06:32→21:51)
[2025-07-24] MEDS: CENTRAL LINE FLUSH 10 ML IV PUSH ×3 (06:33→21:52)
[2025-07-24] MEDS: PROCHLORPERAZINE MALEATE 5 MG TABLET 10 MG PO ×2 (09:00→16:42)
[2025-07-24 09:01] VITALS: PULSE 83
[2025-07-24] MEDS: PANTOPRAZOLE 40 MG TABLET PO ×2 (09:01→21:51)
[2025-07-24] MEDS: METOPROLOL SUCCINATE EXT REL 25 MG TABCR PO (09:01)
[2025-07-24] MEDS: SOLIFENACIN 5 MG TABLET PO (09:02)
[2025-07-24] MEDS: ENOXAPARIN 40 MG/0.4 ML SYRINGE SUB-Q (09:03)
--- NOTE | 2025-07-24 10:21 | PM.CNOR ---
Assessment and Plan Assessment and plan (1) Fracture of right distal radius: Onset Date: 06/2025 Qualifiers: Encounter type: initial encounter Fracture type: closed Fracture morphology: Colles' Qualified Code(s): S52.531A - Colles' fracture of right radius, initial encounter for closed fracture Code(s): S52.501A - Unspecified fracture of the lower end of right radius, initial encounter for closed fracture Status: Acute (2) Fracture of left distal radius: Onset Date: 06/2025 Qualifiers: Encounter type: initial encounter Fracture type: closed Fracture morphology: Colles' Qualified Code(s): S52.532A - Colles' fracture of left radius, initial encounter for closed fracture Code(s): S52.502A - Unspecified fracture of the lower end of left radius, initial encounter for closed fracture Status: Acute (3) Avascular necrosis of bone of left hip: Onset Date: ~06/2025 Code(s): M87.052 - Idiopathic aseptic necrosis of left femur Status: Acute (4) Avascular necrosis of bone of right hip: Onset Date: ~06/2025 Code(s): M87.051 - Idiopathic aseptic necrosis of right femur Status: Acute Plan The patient is a 70-year-old male who presented to the [facility] Room on July 22, 2025 with bilateral wrist pain and also left hip pain after a fall when he was at home trying to lift a pumpkin fell backwards and landed onto his left hip and also tried to brace his fall and also fallen to his bilateral outstretched upper extremities. X-rays at the time of this visit showed that he had bilateral wrist fractures minimally displaced with also minimal angulation he was placed in a volar wrist splint and then sent home. His had a lot of difficulty getting him out of the car into the house secondary to significant left hip pain they brought him back to the emergency room at which time x-rays were obtained of the hip that shows that he had negative x-ray findings for hip fracture. He was then again sent home return back to the emergency room for his 3rd visit in 2 days and that time a CT scan was performed of the hips that shows bilateral avascular necrosis of both hips with no evidence of acute fracture. The patient does have a past medical history that is significant for prostate cancer that was diagnosed 15 years ago apparently the AVN was already apparent at that time according to his . He was not symptomatic for the entire time until he fell on July 22, 2025. I was then called for Orthopedic consultation given the fact that the next step but still in hospital was sent him to a rehab facility. The physician at the time determined that it would be easier for the patient to make it for orthopedic consultation to determine whether or not surgery is recommended if the transfer was made to the [facility] in order to obtain orthopedic consultation and determine whether or not surgical intervention was required, if no surgery intervention is required then we can send to the rehab facility. I interviewed the patient today with his was in the room. The tells me that he is ambulatory without assistive device prior to the fall. He was very active however he has been denied nose with recurrence of prostate cancer currently on chemotherapy per for prostate cancer. Has been diagnosed with prostate cancer for over 15 years of this point. Is known to have metastatic disease involving other parts of his body including his ribs and 1 of his arms. 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 On interviewing the patient today he states that his left hip is what bothers him the most bilateral wrist does feel sore he is currently in a volar based wrist splint. I personally reviewed the patient's x-rays that were performed on July 22, 2025 while at [facility] also I review the CT scan of both hips. There are findings are consistent with avascular necrosis of the femoral head on both sides with no evidence of femoral head collapse. X-rays of the distal radius shows minimal displacement with minimal dorsal angulation. This applies to both the right and left wrists. After consultation with the patient's and also the patient today the main consideration is the patient's ability to be mobile and also his ability to participate in rehab. With regards to the patient's left hip given the fact that he is extremely symptomatic with regards to groin pain and that more than likely the pain generator is coming from the previously asymptomatic AVN and now symptomatic after the fall, I would recommend a left hip hemiarthroplasty pending the results of the MRI that her ordered for today or tomorrow. If there is more extensive involvement of the femur given his history of metastatic prostate cancer with the surgical plan may be very different. I would also recommend that 1 of his wrists be treated with open reduction internal fixation to allow him to rehab after his potential left hip hemiarthroplasty. Therefore surgical plans and surgical recommendations are pending the left hip MRI. History of Present Illness HPI Consult date: 07/24/25 Chief complaint: bilateral wrist fractures and Left Hip pain Narrative: The patient is a 70-year-old male who presented to the [facility] Room on July 22, 2025 with bilateral wrist pain and also left hip pain after a fall when he was at home trying to lift a pumpkin fell backwards and landed onto his left hip and also tried to brace his fall and also fallen to his bilateral outstretched upper extremities. X-rays at the time of this visit showed that he had bilateral wrist fractures minimally displaced with also minimal angulation he was placed in a volar wrist splint and then sent home. His had a lot of difficulty getting him out of the car into the house secondary to significant left hip pain they brought him back to the emergency room at which time x-rays were obtained of the hip that shows that he had negative x-ray findings for hip fracture. He was then again sent home return back to the emergency room for his 3rd visit in 2 days and that time a CT scan was performed of the hips that shows bilateral avascular necrosis of both hips with no evidence of acute fracture. The patient does have a past medical history that is significant for prostate cancer that was diagnosed 15 years ago apparently the AVN was already apparent at that time according to his . He was not symptomatic for the entire time until he fell on July 22, 2025. I was then called for Orthopedic consultation given the fact that the next step but still in hospital was sent him to a rehab facility. The physician at the time determined that it would be easier for the patient to make it for orthopedic consultation to determine whether or not surgery is recommended if the transfer was made to the [facility] in order to obtain orthopedic consultation and determine whether or not surgical intervention was required, if no surgery intervention is required then we can send to the rehab facility. I interviewed the patient today with his was in the room. The tells me that he is ambulatory without assistive device prior to the fall. He was very active however he has been denied nose with recurrence of prostate cancer currently on chemotherapy per for prostate cancer. Has been diagnosed with prostate cancer for over 15 years of this point. Is known to have metastatic disease involving other parts of his body including his ribs and 1 of his arms. 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 On interviewing the patient today he states that his left hip is what bothers him the most bilateral wrist does feel sore he is currently in a volar based wrist splint. PMFSH Past Medical History Medical History Colles' fracture of left radius, initial encounter for closed fracture Family History Family History Other Family history of cardiovascular disease Family history of malignant neoplasm Hypertension Social History Social History Smoking status: Current some day smoker Smokeless tobacco user: other Additional smoking assessment comments: Marijuana Alcohol intake: never Substance use: current Substance use type: marijuana Other substance usage details: Daily Last use: 07/22 Lack of Transportation: No Lack of Food: Never True Current Housing: I Have Housing Concerned About Future Housing: No Difficulty Paying Gas/Electric Bills: No Difficulty Paying for Meds: No Currently Unemployed: No Education: Associate Degree Difficulty w/ Childcare or Family Care: No Living arrangements: with family Spiritual care concerns: No Meds Home Medications and Allergies Home Medications ?Medication ?Instructions ?Recorded ?Confirmed ?Type ergocalciferol (vitamin D2) 1,250 1,250 mcg PO DAILY 12/24/21 07/23/25 History mcg (50,000 unit) capsule hydrocodone 7.5 mg-acetaminophen 1 tablet PO Q4-6H PRN Pain 12/24/21 07/23/25 History 325 mg tablet leuprolide 3.75 mg intramuscular See Rx Instructions .Route .COMPLEX 12/24/21 07/23/25 History pantoprazole 40 mg tablet,delayed 40 mg PO BID 10/18/22 07/23/25 History release olanzapine 5 mg tablet 5 mg PO QPM 06/03/25 07/23/25 History prednisone 10 mg tablet 10 mg PO DAILY 06/03/25 07/23/25 History lisinopril 20 mg tablet 20 mg PO DAILY 07/23/25 07/23/25 History metoprolol succinate 25 mg 25 mg PO DAILY 07/23/25 07/23/25 History tablet,extended release 24 hr prochlorperazine maleate 10 mg 10 mg PO BID 07/23/25 07/23/25 History tablet (Compazine) solifenacin 5 mg tablet (Vesicare) 5 mg PO DAILY 07/23/25 07/23/25 History loratadine 10 mg tablet 10 mg PO DAILY 07/24/25 07/24/25 History (Allerclear) Allergies Allergy/AdvReac Type Severity Reaction Status Date / Time meperidine AdvReac Nausea and Verified 07/23/25 14:57 Vomiting Vital Signs Vital Signs - 24 hr 07/23/25 14:43 07/23/25 15:17 07/23/25 19:50 Temperature 36.4 C L 36.8 C Pulse Rate 75 81 Respiratory Rate 16 18 Blood Pressure 148/66 H 131/65 Pulse Oximetry 98 97 Oxygen Delivery Room Air 07/23/25 20:00 07/24/25 04:22 07/24/25 08:00 Temperature 36.8 C Pulse Rate 75 Respiratory Rate 18 Blood Pressure 139/68 Pulse Oximetry 97 Oxygen Delivery Room Air Room Air 07/24/25 09:01 Temperature Pulse Rate 83 Respiratory Rate Blood Pressure Pulse Oximetry Oxygen Delivery Exam Narrative: On examination of the patient's bilateral upper extremities he is in a volar based wrist splint with good sensation to all of his digits and can move his elbows without difficulty. Left hip examination reveals significant groin pain with even minimal rotation or hip flexion passively. He has a good dorsalis pedis pulse good sensation to this extremity. There is no swelling tenderness or deformity of the left knee or the left ankle. Examination of the patient's right hip shows no pain with range of motion of the right hip and no swelling tenderness or deformity of the bilateral knees as well as the bilateral ankles. Const: General: cooperative, comfortable, well developed, alert, awake and thin Orientation/consciousness: oriented to person, oriented to place and oriented to time Results Labs Labs: All other labs normal.
[2025-07-24] MEDS: MORPHINE SULFATE (*CRX) 4 MG/ML INJ 2 MG IV PUSH (12:12)
[2025-07-24 14:00] VITALS: BP 163/63; PULSE 79; RESP 12; TEMP 36.5; O2SAT 97
--- NOTE | 2025-07-24 14:22 | PM.IMPN ---
Progress Note: A&P Assessment and Plan (1) Fracture of wrist: Qualifiers: Encounter type: initial encounter Fracture type: closed Laterality: unspecified laterality Qualified Code(s): S62.109A - Fracture of unspecified carpal bone, unspecified wrist, initial encounter for closed fracture Code(s): S62.109A - Fracture of unspecified carpal bone, unspecified wrist, initial encounter for closed fracture Status: Inactive (2) Avascular necrosis of femoral head: Qualifiers: Laterality: unspecified laterality Qualified Code(s): M87.059 - Idiopathic aseptic necrosis of unspecified femur Code(s): M87.059 - Idiopathic aseptic necrosis of unspecified femur Status: Inactive Plan This is a 70-year-old male who presented to the ED after a fall on 07/22/2025 initially where he was diagnosed with bilateral distal radial fractures. He had a splint placed and was sent back home to follow-up with orthopedics as an outpatient basis. He came back to ED within our with left hip pain. X-rays of the left hip was done which did not show any acute fracture. And was discharged back. He comes back again today 07/23/2025 with ongoing left hip pain and inability to stand or bear weight. He denied and any other injury. In the ED is vitals were stable except for mild hypertension and tachycardia. Laboratory workup revealed WBC of 14.9 hemoglobin 11.2 platelet count 264. Chem panel showed sodium of 141 potassium 3.9 chloride 102 bicarbonate 31 BUN 21 creatinine 0.8 and blood sugar of 117. LFTs were normal. Urinalysis was negative for you UTI. Lipase was normal at 32. A CT pelvis was performed which showed bilateral avascular necrosis of hip. In this setting case was discussed and was planned to have evaluation with Orthopedics here at [place] and hence getting transferred here for further treatment. Fall injury Bilateral distal radius fracture orthopedic consulted currently on splint. awaiting hip mri to further decide on surgical plan. Left hip pain likely due to fall no acute fracture CT pelvis with avascular necrosis of bilateral hips right more than left. Likely is a muscular injury. Will get MRI to further evaluate. Awaiting MRI PT OT to see. Orthopedic on board. Suggest likely requires left hip arthroplasty. New ill-defined sclerotic lesion in left ilium check PSA level will need further evaluation with bone scan. Recent PSA in 9 days ago was 16.8. Bone scan 05/2025: Left glenoid and left iliac lesions noted Bilateral avascular necrosis of femoral head right more than left PT OT follow-up as an outpatient basis. Likely due to underlying moderate to severe osteoarthritis. He seems to be on a chronic steroid therapy as well. Previous scans have also revealed these findings Hypertension metastatic prostate cancer status post radiation therapy and currently on chemo Osteoporosis GERD DVT prophylaxis Lovenox Code status full code Subjective Date/time seen: 07/24/25 14:22 Interval history: No overnight events. Pain is controlled however has not ambulated much. No chest pain or shortness of breath. Review of Systems Review of Systems: All systems reviewed & are unremarkable except as noted in HPI and below Exam Narrative: GENERAL: The patient is well developed, not in acute distress HEENT: Nonicteric sclerae, PERRLA, EOMI. Oropharynx clear. Moist mucous membranes. Conjunctivae appear well perfused. CHEST: Chest wall is nontender. HEART: Regular rate and rhythm without murmur, rubs, or gallops LUNGS: Clear to auscultation bilaterally. no respiratory distress ABDOMEN: Soft, positive bowel sounds, non-tender, no organomegaly. SKIN: No rash, no excessive bruising, petechiae, or purpura. NEUROLOGIC: Cranial nerves II-XII intact, alert and oriented x 3, no gross motor deficits EXTREMITIES: no edema, cyanosis or clubbing Bilateral forearm with splint Left hip tender anteriorly restricted range of motion Objective Data Vital Signs Vital Signs: Vital Signs - 24 hr 07/23/25 14:43 07/23/25 15:17 07/23/25 19:50 Temperature 97.5 F L 98.3 F Pulse Rate 75 81 Respiratory Rate 16 18 Blood Pressure 148/66 H 131/65 Pulse Oximetry 98 97 Oxygen Delivery Room Air 07/23/25 20:00 07/24/25 04:22 07/24/25 08:00 Temperature 98.2 F Pulse Rate 75 Respiratory Rate 18 Blood Pressure 139/68 Pulse Oximetry 97 Oxygen Delivery Room Air Room Air 07/24/25 09:01 Temperature Pulse Rate 83 Respiratory Rate Blood Pressure Pulse Oximetry Oxygen Delivery Intake/Output Intake/Output: Intake & Output 07/21/25 07/22/25 07/23/25 07/24/25 23:59 23:59 23:59 23:59 Intake Total 480 358 Output Total 200 50 Balance 280 308 Meds/Results Medications: Active Medications Generic Name Dose Route Start Last Admin Trade Name Freq PRN Reason Stop Dose Admin Hydrocodone Bitart/Acetaminophen 1 tab 07/23/25 15:21 07/24/25 06:32 Hydrocodone/Acetaminophen (*Crx) 7.5-325 Mg Tablet PO 1 tab Q4H PRN Administration 4-6 Enoxaparin Sodium 40 mg 07/24/25 09:00 07/24/25 09:03 Enoxaparin 40 Mg/0.4 Ml Syringe SUB-Q 40 mg DAILY [facility] Administration Ergocalciferol 1,250 mcg 07/24/25 09:00 Ergocalciferol (Vitamin D2) 1,250 Mcg (50,000 Units) Capsule PO DAILY [facility] Heparin Sodium (Beef Lung) 50 units 07/24/25 09:00 07/24/25 09:04 Heparin Flush 50 Units/5 Ml Syringe IV PUSH 50 units QAM RON Administration Heparin Sodium (Beef Lung) 50 units 07/23/25 15:39 Heparin Flush 50 Units/5 Ml Syringe IV PUSH PRN PRN after intermittent infusion Heparin Sodium (Beef Lung) 50 units 07/23/25 15:39 Heparin Flush 50 Units/5 Ml Syringe IV PUSH PRN PRN after blood draws Heparin Sodium (Porcine) 500 units 07/23/25 15:39 Heparin Sodium Lock Flush 500 Units/5 Ml Syringe IV PUSH PRN PRN see comments below Lisinopril 20 mg 07/24/25 09:00 07/24/25 09:01 Lisinopril 20 Mg Tablet PO 20 mg DAILY [facility] Administration Metoprolol Succinate 25 mg 07/24/25 09:00 07/24/25 09:01 Metoprolol Succinate Ext Rel 25 Mg Tabcr PO 25 mg DAILY [facility] Administration Miscellaneous Information 1 each 07/23/25 00:01 Ergocalciferol (Vitamin D2) 1,250 Mcg (50,000 Units) Capsule Need Day Due XX 08/22/25 00:00 [facility] Miscellaneous Information 1 each 07/23/25 00:01 Nonformulary Drug (Leuprolide 3.75 Mg Injectable)Can Patient Use From Home? Dose And Freq XX 08/22/25 00:00 [facility] Morphine Sulfate 2 mg 07/23/25 16:32 07/24/25 12:12 Morphine Sulfate (*Crx) 4 Mg/Ml Inj IV PUSH 2 mg Q4H PRN Administration Pain Rated 7-10 Non-Formulary Medication 0 mg 07/23/25 15:30 Leuprolide XX 08/22/25 15:29 .COMPLEX RON Olanzapine 5 mg 07/23/25 18:00 07/23/25 17:43 Olanzapine 5 Mg Tablet PO 5 mg QPM RON Administration Pantoprazole Sodium 40 mg 07/23/25 21:00 07/24/25 09:01 Pantoprazole 40 Mg Tablet PO 40 mg Q12HR RON Administration Prednisone 10 mg 07/24/25 09:00 07/24/25 09:01 Prednisone 10 Mg Tablet PO 10 mg DAILY RON Administration Prochlorperazine Maleate 10 mg 07/23/25 17:00 07/24/25 09:00 Prochlorperazine Maleate 5 Mg Tablet PO 10 mg BID RON Administration Sodium Chloride 10 ml 07/23/25 22:00 07/24/25 06:33 Central Line Flush IV PUSH 10 ml Q8HR RON Administration Solifenacin 5 mg 07/24/25 09:00 07/24/25 09:02 Solifenacin 5 Mg Tablet PO 5 mg DAILY RON Administration
[2025-07-24] MEDS: DEXTROSE 5%/0.45% SOD CHL 1,000 ML 50 ML IV CONT (16:42)
[2025-07-24 19:49] VITALS: BP 115/51; PULSE 73; RESP 16; TEMP 36.6; O2SAT 97
[2025-07-24 21:43] LABS: Add Urine Microscopic? YES; Appearance Urine Clear (Clear); Glucose Urine UA Negative (Negative); Leukocyte Esterase Ur Negative LEU/UL (Negative); Nitrate Urine Negative (Negative); Non Pathogenic Casts 0-2; Specific Grav Ur 1.019 (1.001-1.035)
--- NOTE | 2025-07-25 01:59 | PC.NURSE ---
Daylight savings time change
[2025-07-25] MEDS: HYDROcodone/acetaminophen (*CRX) 7.5-325 MG TABLET 1 TAB PO ×5 (03:19→21:15)
[2025-07-25 04:41] VITALS: BP 137/65; PULSE 78; RESP 16; TEMP 36.4; O2SAT 94
[2025-07-25] MEDS: CENTRAL LINE FLUSH 10 ML IV PUSH ×3 (04:51→21:16)
[2025-07-25 05:05] LABS: Hematocrit 32.4 % (42.0-52.0); Hemoglobin 10.4 g/dL (14.0-18.0); Immature Granulocyte Percent A 2.2 % (0-0.5); Lymphocytes Absolute Auto 0.89 K/mm3 (0.9-3.2); Mean Corpuscular HGB Conc 32.1 g/dl (32-36); Mean Corpuscular Hemoglobin 28.9 pg (26-34); Mean Corpuscular Volume 90.0 fl (80-100); Nucleated Red Blood Cells Absolute Auto 0.000 K/mm3 (0.0-0.012); Nucleated Red Blood Cells Perc 0.0 % (0.0-0.2); Platelet Count Result 236 k/mm3 (150-375); Red Blood Count 3.60 M/mm3 (4.6-6.20); White Blood Count 12.3 K/mm3 (4.5-10.0)
[2025-07-25 05:16] LABS: Alanine Aminotransferase 14 U/L (6-50); Albumin Level 3.4 g/dL (3.5-5.1); Alkaline Phosphatase 76 U/L (38-126); Anion Gap 2 mmol/L (4-12); Aspartate Amino Transferase 21 U/L (17-59); Bilirubin,Total 0.8 mg/dL (0.2-1.3); Blood Urea Nitrogen 22 mg/dL (9-20); Calcium 8.7 mg/dL (8.4-10.2); Carbon Dioxide 32 mmol/L (22-30); Chloride 101 mmol/L (98-107); Estimated CRCL calculation 65 ml/min; Estimated Glomerular Filt Rate > 60; Glucose 111 mg/dL (65-110); Magnesium 2.2 mg/dL (1.6-2.3); Potassium 3.6 mmol/L (3.4-5.0); Sodium 135 mmol/L (137-145); Total Protein 6.0 g/dL (6.3-8.2)
[2025-07-25] MEDS: PANTOPRAZOLE 40 MG TABLET PO ×2 (08:17→20:17)
[2025-07-25] MEDS: SOLIFENACIN 5 MG TABLET PO (08:17)
[2025-07-25] MEDS: LORATADINE 10 MG TABLET PO (08:17)
[2025-07-25] MEDS: PROCHLORPERAZINE MALEATE 5 MG TABLET 10 MG PO ×2 (08:17→17:08)
[2025-07-25 08:18] VITALS: PULSE 81
[2025-07-25] MEDS: ENOXAPARIN 40 MG/0.4 ML SYRINGE SUB-Q (08:18)
[2025-07-25] MEDS: METOPROLOL SUCCINATE EXT REL 25 MG TABCR PO (08:18)
--- NOTE | 2025-07-25 10:23 | P.PNIM_ITS ---
Progress Note: A&P Assessment and Plan (1) Fracture of wrist: Qualifiers: Encounter type: initial encounter Fracture type: closed Laterality: unspecified laterality Qualified Code(s): S62.109A - Fracture of unspecified carpal bone, unspecified wrist, initial encounter for closed fracture Code(s): S62.109A - Fracture of unspecified carpal bone, unspecified wrist, initial encounter for closed fracture Status: Inactive (2) Avascular necrosis of femoral head: Qualifiers: Laterality: unspecified laterality Qualified Code(s): M87.059 - Idiopathic aseptic necrosis of unspecified femur Code(s): M87.059 - Idiopathic aseptic necrosis of unspecified femur Status: Inactive Plan This is a 70-year-old male who presented to the ED after a fall on 07/22/2025 initially where he was diagnosed with bilateral distal radial fractures. He had a splint placed and was sent back home to follow-up with orthopedics as an outpatient basis. He came back to ED within our with left hip pain. X-rays of the left hip was done which did not show any acute fracture. And was discharged back. He comes back again today 07/23/2025 with ongoing left hip pain and inability to stand or bear weight. He denied and any other injury. In the ED is vitals were stable except for mild hypertension and tachycardia. Laboratory workup revealed WBC of 14.9 hemoglobin 11.2 platelet count 264. Chem panel showed sodium of 141 potassium 3.9 chloride 102 bicarbonate 31 BUN 21 creatinine 0.8 and blood sugar of 117. LFTs were normal. Urinalysis was negative for you UTI. Lipase was normal at 32. A CT pelvis was performed which showed bilateral avascular necrosis of hip. In this setting case was discussed and was planned to have evaluation with Orthopedics here at [facility] and hence getting transferred here for further treatment. Fall injury Bilateral distal radius fracture orthopedic consulted currently on splint. awaiting hip mri to further decide on surgical plan. Left hip pain likely due to fall no acute fracture CT pelvis with avascular necrosis of bilateral hips right more than left. Likely is a muscular injury. Will get MRI to further evaluate. Awaiting MRI PT OT to see. Orthopedic on board. Suggest likely requires left hip arthroplasty. New ill-defined sclerotic lesion in left ilium check PSA level will need further evaluation with bone scan. Recent PSA in 9 days ago was 16.8. 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 Likely due to underlying moderate to severe osteoarthritis. He seems to be on a chronic steroid therapy as well. Previous scans have also revealed these findings Hypertension metastatic prostate cancer status post radiation therapy and currently on chemo Osteoporosis GERD 07/25/2025 Patient pain is under control. Consult ordered. Plan is to continue current treatment monitor closely. DVT prophylaxis Lovenox Code status full code Subjective Date/time seen: 07/25/25 10:23 Interval history: Patient was seen during the morning rounds today. Patient is feeling better. Pain controlled. No shortness of breath or chest pain. Review of Systems Review of Systems: - CONSTITUTIONAL: Denies weight loss, fe giovanny and chills. - HEENT: Denies changes in vision and he aring - RESPIRATORY: Denies SOB and cough. - CV: Denies palpitations and CP. - GI: Denies abdominal pain, nausea, vom iting and diarrhea. - : Denies dysuria and urinary frequen cy. - MSK: Reports bilateral wrist pain and more severe left hip pain - SKIN: Denies rash and pruritus. - NEUROLOGICAL: Denies headache and sync ope. Reports fall - PSYCHIATRIC: Denies recent changes in mood. Denies anxiety and depression. All systems reviewed & are unremarkable except as noted in HPI and below Exam Narrative: GENERAL: The patient is well developed, not in acute distress HEENT: Nonicteric sclerae, PERRLA, EOMI. Oropharynx clear. Moist mucous membranes. Conjunctivae appear well perfused. CHEST: Chest wall is nontender. HEART: Regular rate and rhythm without murmur, rubs, or gallops LUNGS: Clear to auscultation bilaterally. no respiratory distress ABDOMEN: Soft, positive bowel sounds, non-tender, no organomegaly. SKIN: No rash, no excessive bruising, petechiae, or purpura. NEUROLOGIC: Cranial nerves II-XII intact, alert and oriented x 3, no gross motor deficits EXTREMITIES: no edema, cyanosis or clubbing Bilateral forearm with splint Left hip tender anteriorly restricted range of motion Objective Data Vital Signs Vital Signs: Vital Signs - 24 hr 07/24/25 14:00 07/24/25 19:49 07/25/25 04:41 Temperature 36.5 C 36.6 C 36.4 C L Pulse Rate 79 73 78 Respiratory Rate 12 16 16 Blood Pressure 163/63 H 115/51 L 137/65 Pulse Oximetry 97 97 94 Oxygen Delivery 07/25/25 08:00 07/25/25 08:18 Temperature Pulse Rate 81 Respiratory Rate Blood Pressure Pulse Oximetry Oxygen Delivery Room Air Intake/Output Intake/Output: Intake & Output 07/22/25 07/23/25 07/24/25 07/25/25 23:59 23:59 23:59 22:59 Intake Total 471 248 5768.7 Output Total 200 500 200 Balance 366 406 1626.7 Meds/Results Medications: Active Medications Generic Name Dose Route Start Last Admin Trade Name Freq PRN Reason Stop Dose Admin Hydrocodone Bitart/Acetaminophen 1 tab 07/23/25 15:21 07/25/25 08:21 Hydrocodone/Acetaminophen (*Crx) 7.5-325 Mg Tablet PO 1 tab Q4H PRN Administration 4-6 Enoxaparin Sodium 40 mg 07/24/25 09:00 07/25/25 08:18 Enoxaparin 40 Mg/0.4 Ml Syringe SUB-Q 40 mg DAILY RON Administration Ergocalciferol 1,250 mcg 07/25/25 09:00 Ergocalciferol (Vitamin D2) 1,250 Mcg (50,000 Units) Capsule PO DAILY RON Heparin Sodium (Beef Lung) 50 units 07/24/25 09:00 07/25/25 08:18 Heparin Flush 50 Units/5 Ml Syringe IV PUSH 50 units QAM RON Administration Heparin Sodium (Beef Lung) 50 units 07/23/25 15:39 Heparin Flush 50 Units/5 Ml Syringe IV PUSH PRN PRN after intermittent infusion Heparin Sodium (Beef Lung) 50 units 07/23/25 15:39 07/25/25 04:51 Heparin Flush 50 Units/5 Ml Syringe IV PUSH 50 units PRN PRN Administration after blood draws Heparin Sodium (Porcine) 500 units 07/23/25 15:39 Heparin Sodium Lock Flush 500 Units/5 Ml Syringe IV PUSH PRN PRN see comments below Lisinopril 20 mg 07/24/25 09:00 07/25/25 08:17 Lisinopril 20 Mg Tablet PO 20 mg DAILY RON Administration Loratadine 10 mg 07/25/25 09:00 07/25/25 08:17 Loratadine 10 Mg Tablet PO 10 mg DAILY RON Administration Metoprolol Succinate 25 mg 07/24/25 09:00 07/25/25 08:18 Metoprolol Succinate Ext Rel 25 Mg Tabcr PO 25 mg DAILY RON Administration Morphine Sulfate 2 mg 07/23/25 16:32 07/24/25 12:12 Morphine Sulfate (*Crx) 4 Mg/Ml Inj IV PUSH 2 mg Q4H PRN Administration Pain Rated 7-10 Olanzapine 5 mg 07/23/25 18:00 07/24/25 16:42 Olanzapine 5 Mg Tablet PO 5 mg QPM RON Administration Pantoprazole Sodium 40 mg 07/23/25 21:00 07/25/25 08:17 Pantoprazole 40 Mg Tablet PO 40 mg Q12HR RON Administration Prednisone 10 mg 07/24/25 09:00 07/25/25 08:17 Prednisone 10 Mg Tablet PO 10 mg DAILY RON Administration Prochlorperazine Maleate 10 mg 07/23/25 17:00 07/25/25 08:17 Prochlorperazine Maleate 5 Mg Tablet PO 10 mg BID RON Administration Sodium Chloride 10 ml 07/23/25 22:00 07/25/25 04:51 Central Line Flush IV PUSH 10 ml Q8HR RON Administration Solifenacin 5 mg 07/24/25 09:00 07/25/25 08:17 Solifenacin 5 Mg Tablet PO 5 mg DAILY RON Administration Labs Labs: Laboratory Results - last 24 hr 07/24/25 07/25/25 21:26 04:46 WBC 12.3 H RBC 3.60 L Hgb 10.4 L Hct 32.4 L MCV 90.0 MCH 28.9 MCHC 32.1 RDW 14.6 H Plt Count 236 MPV 10.3 Immature Gran % (Auto) 2.2 H Neut % (Auto) 85.0 H Lymph % (Auto) 7.2 L [place] % (Auto) 5.1 Eos % (Auto) 0.1 Baso % (Auto) 0.4 Lymph # (Auto) 0.89 L [place] # (Auto) 0.6 Eos # (Auto) 0.0 Baso # (Auto) 0.1 Abs Immat Gran (auto) 0.27 H Absolute Neuts (auto) 10.5 H Absolute Nucleated RBC 0.000 Nucleated RBC % 0.0 Sodium 135 L Potassium 3.6 Chloride 101 Carbon Dioxide 32 H Anion Gap 2 L BUN 22 H Creatinine 0.75 Estim Creat Clear Calc 65 Estimated GFR > 60 Glucose 111 H Calcium 8.7 Magnesium 2.2 Total Bilirubin 0.8 AST 21 ALT 14 Alkaline Phosphatase 76 Total Protein 6.0 L Albumin 3.4 L Urine Color Yellow Urine Appearance Clear Urine pH 6.5 Ur Specific [place] 1.019 Urine Protein Trace Urine Glucose (UA) Negative Urine Ketones Trace H Ur Blood (Man) Negative Urine Nitrate Negative Urine Bilirubin Negative Urine Urobilinogen 0.2 Leukocyte Esterase Rfl Negative Urine RBC 0-2 Urine WBC 0-5 Ur Squamous Epith Cells None seen Urine Bacteria None seen Urine Casts 0-2
[2025-07-25] MEDS: ERGOCALCIFEROL (VITAMIN D2) 1,250 MCG (50,000 UNITS) CAPSULE 1250 MCG PO (12:06)
[2025-07-25 14:00] VITALS: BP 111/59; PULSE 77; RESP 15; TEMP 36.1; O2SAT 97
[2025-07-25 20:09] VITALS: BP 135/67; PULSE 66; RESP 17; TEMP 36.8; O2SAT 99
[2025-07-26] MEDS: CENTRAL LINE FLUSH 10 ML IV PUSH ×3 (04:29→21:04)
[2025-07-26] MEDS: HYDROcodone/acetaminophen (*CRX) 7.5-325 MG TABLET 1 TAB PO ×4 (04:34→18:16)
[2025-07-26 04:36] LABS: Hematocrit 32.9 % (42.0-52.0); Hemoglobin 10.3 g/dL (14.0-18.0); Mean Corpuscular HGB Conc 31.3 g/dl (32-36); Mean Corpuscular Hemoglobin 28.4 pg (26-34); Mean Corpuscular Volume 90.6 fl (80-100); Platelet Count Result 227 k/mm3 (150-375); Red Blood Count 3.63 M/mm3 (4.6-6.20); White Blood Count 10.9 K/mm3 (4.5-10.0)
[2025-07-26 04:48] VITALS: BP 148/61; PULSE 72; RESP 17; TEMP 36.6; O2SAT 98
--- NOTE | 2025-07-26 08:11 | PM.PNORT ---
Progress Note: A&P Assessment and Plan (1) Avascular necrosis of bone of right hip: Onset Date: ~06/2025 Code(s): M87.051 - Idiopathic aseptic necrosis of right femur Status: Acute (2) Avascular necrosis of bone of left hip: Onset Date: ~06/2025 Code(s): M87.052 - Idiopathic aseptic necrosis of left femur Status: Acute (3) Fracture of left distal radius: Onset Date: 06/2025 Qualifiers: Encounter type: initial encounter Fracture type: closed Fracture morphology: [employer] Qualified Code(s): S52.532A - Colles' fracture of left radius, initial encounter for closed fracture Code(s): S52.502A - Unspecified fracture of the lower end of left radius, initial encounter for closed fracture Status: Acute (4) Fracture of right distal radius: Onset Date: 06/2025 Qualifiers: Encounter type: initial encounter Fracture type: closed Fracture morphology: [employer] Qualified Code(s): S52.531A - Colles' fracture of right radius, initial encounter for closed fracture Code(s): S52.501A - Unspecified fracture of the lower end of right radius, initial encounter for closed fracture Status: Acute Plan Clinically improving regarding Left Hip Pain (AVN vs Proximal femoral fx from metastatic disease) Awaiting official reading of Left Hip MRI. If metastatic lesion to Left hip in the area of high stress (high risk for fracture, calcar or inter-troch, sub-troch region), recommend modified miller-arthroplasty to protect areas of high stress (ie.. long stem). - for now, nwb Left lower extremity - recommend bedside commode. - wbat Right Lower extremity and bilateral upper extremity. Subjective Subjective Date/Time Seen: 07/26/25 08:11 Principal diagnosis: Bilateral Hip AVN Symptomic Left Hip Interval history: Feeling better today, able to move Left Hip with minimal pain. Bilateral wrists with less pain and able to use hands with little difficulty. Exam Narrative: Bilateral hands in volar splint with minimal pain on range of motion of fingers. Left hip with minimal pain on abduction and flexion of hip passive and active rom. Const: General: cooperative, comfortable, no acute distress, alert and awake Nutritional Appearance: thin Orientation/consciousness: oriented to person, oriented to place and oriented to time Objective Data Vital Signs Vital Signs: Vital Signs - 24 hr 11/02/25 08:18 07/25/25 14:00 07/25/25 20:00 Temperature 36.1 C L Pulse Rate 81 77 Respiratory Rate 15 Blood Pressure 111/59 L Pulse Oximetry 97 Oxygen Delivery Room Air 07/25/25 20:09 07/26/25 04:48 Temperature 36.8 C 36.6 C Pulse Rate 66 72 Respiratory Rate 17 17 Blood Pressure 135/67 148/61 H Pulse Oximetry 99 98 Oxygen Delivery Intake/Output Intake/Output: Intake & Output 07/23/25 07/24/25 07/25/25 07/26/25 23:59 23:59 22:59 23:59 Intake Total 575 721 8029.7 120 Output Total 200 500 700 300 Balance 527 439 1488.7 -180 Meds/Results Medications: Active Medications Generic Name Dose Route Start Last Admin Trade Name Freq PRN Reason Stop Dose Admin Hydrocodone Bitart/Acetaminophen 1 tab 07/23/25 15:21 07/26/25 04:34 Hydrocodone/Acetaminophen (*Crx) 7.5-325 Mg Tablet PO 1 tab Q4H PRN Administration 4-6 Enoxaparin Sodium 40 mg 07/24/25 09:00 07/25/25 08:18 Enoxaparin 40 Mg/0.4 Ml Syringe SUB-Q 40 mg DAILY RON Administration Ergocalciferol 1,250 mcg 07/25/25 09:00 07/25/25 12:06 Ergocalciferol (Vitamin D2) 1,250 Mcg (50,000 Units) Capsule PO 1,250 mcg DAILY RON Administration Heparin Sodium (Beef Lung) 50 units 07/24/25 09:00 07/25/25 08:18 Heparin Flush 50 Units/5 Ml Syringe IV PUSH 50 units QAM RON Administration Heparin Sodium (Beef Lung) 50 units 07/23/25 15:39 Heparin Flush 50 Units/5 Ml Syringe IV PUSH PRN PRN after intermittent infusion Heparin Sodium (Beef Lung) 50 units 07/23/25 15:39 07/26/25 04:29 Heparin Flush 50 Units/5 Ml Syringe IV PUSH 50 units PRN PRN Administration after blood draws Heparin Sodium (Porcine) 500 units 07/23/25 15:39 Heparin Sodium Lock Flush 500 Units/5 Ml Syringe IV PUSH PRN PRN see comments below Lisinopril 20 mg 07/24/25 09:00 07/25/25 08:17 Lisinopril 20 Mg Tablet PO 20 mg DAILY RON Administration Loratadine 10 mg 07/25/25 09:00 07/25/25 08:17 Loratadine 10 Mg Tablet PO 10 mg DAILY RON Administration Metoprolol Succinate 25 mg 07/24/25 09:00 07/25/25 08:18 Metoprolol Succinate Ext Rel 25 Mg Tabcr PO 25 mg DAILY RON Administration Morphine Sulfate 2 mg 07/23/25 16:32 07/24/25 12:12 Morphine Sulfate (*Crx) 4 Mg/Ml Inj IV PUSH 2 mg Q4H PRN Administration Pain Rated 7-10 Olanzapine 5 mg 07/23/25 18:00 07/25/25 17:08 Olanzapine 5 Mg Tablet PO 5 mg QPM RON Administration Pantoprazole Sodium 40 mg 07/23/25 21:00 07/25/25 20:17 Pantoprazole 40 Mg Tablet PO 40 mg Q12HR RON Administration Prednisone 10 mg 07/24/25 09:00 07/25/25 08:17 Prednisone 10 Mg Tablet PO 10 mg DAILY RON Administration Prochlorperazine Maleate 10 mg 07/23/25 17:00 07/25/25 17:08 Prochlorperazine Maleate 5 Mg Tablet PO 10 mg BID RON Administration Sodium Chloride 10 ml 07/23/25 22:00 07/26/25 04:29 Central Line Flush IV PUSH 10 ml Q8HR RON Administration Solifenacin 5 mg 07/24/25 09:00 07/25/25 08:17 Solifenacin 5 Mg Tablet PO 5 mg DAILY RON Administration Labs Labs: Laboratory Results - last 24 hr 07/26/25 04:27 WBC 10.9 H RBC 3.63 L Hgb 10.3 L Hct 32.9 L MCV 90.6 MCH 28.4 MCHC 31.3 L RDW 14.3 Plt Count 227 MPV 10.0
[2025-07-26 09:01] VITALS: PULSE 72
[2025-07-26] MEDS: METOPROLOL SUCCINATE EXT REL 25 MG TABCR PO (09:01)
[2025-07-26] MEDS: SOLIFENACIN 5 MG TABLET PO (09:01)
[2025-07-26] MEDS: PROCHLORPERAZINE MALEATE 5 MG TABLET 10 MG PO ×2 (09:01→17:26)
[2025-07-26] MEDS: ERGOCALCIFEROL (VITAMIN D2) 1,250 MCG (50,000 UNITS) CAPSULE 1250 MCG PO (09:01)
[2025-07-26] MEDS: PANTOPRAZOLE 40 MG TABLET PO ×2 (09:01→21:04)
[2025-07-26] MEDS: LORATADINE 10 MG TABLET PO (09:02)
[2025-07-26] MEDS: ENOXAPARIN 40 MG/0.4 ML SYRINGE SUB-Q (09:02)
--- NOTE | 2025-07-26 12:13 | PC.NURSE ---
On 07/26/25, the student, Madie Schrader, provided care and completed [facility] documentation on this patient. I have reviewed the student's documentation and agree with the findings.
--- NOTE | 2025-07-26 13:44 | PM.IMPN ---
Progress Note: A&P Assessment and Plan (1) Fracture of wrist: Qualifiers: Encounter type: initial encounter Fracture type: closed Laterality: unspecified laterality Qualified Code(s): S62.109A - Fracture of unspecified carpal bone, unspecified wrist, initial encounter for closed fracture Code(s): S62.109A - Fracture of unspecified carpal bone, unspecified wrist, initial encounter for closed fracture Status: Inactive (2) Avascular necrosis of femoral head: Qualifiers: Laterality: unspecified laterality Qualified Code(s): M87.059 - Idiopathic aseptic necrosis of unspecified femur Code(s): M87.059 - Idiopathic aseptic necrosis of unspecified femur Status: Inactive Plan 70-year-old male who presented to the ED after a fall on 07/22/2025 initially where he was diagnosed with bilateral distal radial fractures. He had a splint placed and was sent back home to follow-up with orthopedics as an outpatient basis. He came back to ED within our with left hip pain. X-rays of the left hip was done which did not show any acute fracture. And was discharged back. He comes back again today 07/23/2025 with ongoing left hip pain and inability to stand or bear weight.CT pelvis was performed which showed bilateral avascular necrosis of hip. Orthopedics was consulted. MRI hip was ordered. 1. Left hip pain: Await official read of MRI Pain control for now, nwb Left lower extremity recommend bedside commode. wbat Right Lower extremity 2. Bilateral wrist fracture: Bilateral splints Weight-bearing as tolerated 3. History of hypertension: Continue with lisinopril, metoprolol 4. Code status: Full 5. DVT prophylaxis: Lovenox 6. Disposition: Pending improvement Time Spent With Patient Time: 38 mins Subjective Date/time seen: 07/26/25 13:44 Interval history: No acute events overnight Pain is better controlled Review of Systems Review of Systems: All systems reviewed & are unremarkable except as noted in HPI and below Exam Narrative: GENERAL: The patient is well developed, not in acute distress HEENT: Nonicteric sclerae, PERRLA, EOMI. Oropharynx clear. Moist mucous membranes. Conjunctivae appear well perfused. CHEST: Chest wall is nontender. HEART: Regular rate and rhythm without murmur, rubs, or gallops LUNGS: Clear to auscultation bilaterally. no respiratory distress ABDOMEN: Soft, positive bowel sounds, non-tender, no organomegaly. SKIN: No rash, no excessive bruising, petechiae, or purpura. NEUROLOGIC: Cranial nerves II-XII intact, alert and oriented x 3, no gross motor deficits EXTREMITIES: no edema, cyanosis or clubbing Bilateral forearm with splint Left hip tender anteriorly restricted range of motion Objective Data Vital Signs Vital Signs: Vital Signs - 24 hr 07/25/25 14:00 07/25/25 20:00 07/25/25 20:09 Temperature 97.0 F L 98.2 F Pulse Rate 77 66 Respiratory Rate 15 17 Blood Pressure 111/59 L 135/67 Pulse Oximetry 97 99 Oxygen Delivery Room Air 07/26/25 04:48 07/26/25 09:00 07/26/25 09:01 Temperature 97.8 F Pulse Rate 72 72 Respiratory Rate 17 Blood Pressure 148/61 H Pulse Oximetry 98 Oxygen Delivery Room Air Intake/Output Intake/Output: Intake & Output 07/23/25 07/24/25 07/25/25 07/26/25 23:59 23:59 22:59 23:59 Intake Total 640 818 0329.7 240 Output Total 200 500 700 300 Balance 108 057 9912.7 -60 Meds/Results Medications: Active Medications Generic Name Dose Route Start Last Admin Trade Name Freq PRN Reason Stop Dose Admin Hydrocodone Bitart/Acetaminophen 1 tab 07/23/25 15:21 07/26/25 09:12 Hydrocodone/Acetaminophen (*Crx) 7.5-325 Mg Tablet PO 1 tab Q4H PRN Administration 4-6 Enoxaparin Sodium 40 mg 07/24/25 09:00 07/26/25 09:02 Enoxaparin 40 Mg/0.4 Ml Syringe SUB-Q 40 mg DAILY RON Administration Ergocalciferol 1,250 mcg 07/25/25 09:00 07/26/25 09:01 Ergocalciferol (Vitamin D2) 1,250 Mcg (50,000 Units) Capsule PO 1,250 mcg DAILY RON Administration Heparin Sodium (Beef Lung) 50 units 07/24/25 09:00 07/26/25 09:02 Heparin Flush 50 Units/5 Ml Syringe IV PUSH 50 units QAM RON Administration Heparin Sodium (Beef Lung) 50 units 07/23/25 15:39 Heparin Flush 50 Units/5 Ml Syringe IV PUSH PRN PRN after intermittent infusion Heparin Sodium (Beef Lung) 50 units 07/23/25 15:39 07/26/25 04:29 Heparin Flush 50 Units/5 Ml Syringe IV PUSH 50 units PRN PRN Administration after blood draws Heparin Sodium (Porcine) 500 units 07/23/25 15:39 Heparin Sodium Lock Flush 500 Units/5 Ml Syringe IV PUSH PRN PRN see comments below Lisinopril 20 mg 07/24/25 09:00 07/26/25 09:02 Lisinopril 20 Mg Tablet PO 20 mg DAILY RON Administration Loratadine 10 mg 07/25/25 09:00 07/26/25 09:02 Loratadine 10 Mg Tablet PO 10 mg DAILY RON Administration Metoprolol Succinate 25 mg 07/24/25 09:00 07/26/25 09:01 Metoprolol Succinate Ext Rel 25 Mg Tabcr PO 25 mg DAILY RON Administration Morphine Sulfate 2 mg 07/23/25 16:32 07/24/25 12:12 Morphine Sulfate (*Crx) 4 Mg/Ml Inj IV PUSH 2 mg Q4H PRN Administration Pain Rated 7-10 Olanzapine 5 mg 07/23/25 18:00 07/25/25 17:08 Olanzapine 5 Mg Tablet PO 5 mg QPM RON Administration Pantoprazole Sodium 40 mg 07/23/25 21:00 07/26/25 09:01 Pantoprazole 40 Mg Tablet PO 40 mg Q12HR RON Administration Prednisone 10 mg 07/24/25 09:00 07/26/25 09:01 Prednisone 10 Mg Tablet PO 10 mg DAILY RON Administration Prochlorperazine Maleate 10 mg 07/23/25 17:00 07/26/25 09:01 Prochlorperazine Maleate 5 Mg Tablet PO 10 mg BID RON Administration Sodium Chloride 10 ml 07/23/25 22:00 07/26/25 04:29 Central Line Flush IV PUSH 10 ml Q8HR ORN Administration Solifenacin 5 mg 07/24/25 09:00 07/26/25 09:01 Solifenacin 5 Mg Tablet PO 5 mg DAILY RON Administration Radiology Results: ITS Impressions Hip MRI 07/26/25 08:42 IMPRESSION: 1. Status post prostatectomy with new bone lesion at the posterior left iliac spine with corresponding sclerosis on prior CT suspicious for metastatic prostate cancer. 2. Nondisplaced likely insufficiency fractures of the left superior and inferior pubic rami and the left sacroiliac. 3. Chronic osteonecrosis at the bilateral femoral heads. 4. Mild left hip osteoarthritis with delaminating tear at the anterosuperior chondral labral junction and degeneration of the superior to superolateral labrum. 5. Prominent asymmetric muscular edema at the left abductor muscles which could be related to muscle strain or reactive edema related to the left pubic rami fractures. Labs Labs: Laboratory Results - last 24 hr 07/26/25 04:27 WBC 10.9 H RBC 3.63 L Hgb 10.3 L Hct 32.9 L MCV 90.6 MCH 28.4 MCHC 31.3 L RDW 14.3 Plt Count 227 MPV 10.0 Quality VTE Prophylaxis VTE prophylaxis: pharmacologic ordered
[2025-07-26 13:46] VITALS: BP 121/78; PULSE 76; RESP 14; TEMP 36.5; O2SAT 98
--- NOTE | 2025-07-26 14:09 | PCNFU ---
Nutrition Follow-Up Complete: Underweight related to chronic inadequate intake as evidenced by BMI 17.7 Diet advancement - Goal is met PO intake >75% when diet is advanced - Making progress with goal, continue with current goal Goal: Pt current nutrition is Regular diet, Nutritional ice cream TID (270 kcal, 9 g protein each). Nutrition recommendation: No new recommendations. Pt does not like Ensure. Continue current nutrition care plan and orders. Agree with orders. Last recorded weight is 57.6 kg. Bowel Motility: +1 BM 07/24 Labs Reviewed: Hgb 10.3, Hct 32.5 Meds Noted: Predisone, protonix, lovenox Skin: No skin issues Additional Notes: Intakes improved to 50-100%. Some intake of nutritional ice cream. Pt able to feed self adequately with splints to arms. Continue current orders. Monitoring diet orders, weights, labs, intakes, plan of care Follow up in 3 days
[2025-07-26] MEDS: DOCUSATE SODIUM 100 MG CAPSULE PO (17:27)
[2025-07-26 20:09] VITALS: BP 135/71; PULSE 69; RESP 12; TEMP 36.6; O2SAT 99
[2025-07-27] MEDS: CENTRAL LINE FLUSH 10 ML IV PUSH ×3 (04:20→19:46)
[2025-07-27 04:26] LABS: Hematocrit 31.0 % (42.0-52.0); Hemoglobin 10.1 g/dL (14.0-18.0); Immature Granulocyte Percent A 1.4 % (0-0.5); Lymphocytes Absolute Auto 0.92 K/mm3 (0.9-3.2); Mean Corpuscular HGB Conc 32.6 g/dl (32-36); Mean Corpuscular Hemoglobin 29.2 pg (26-34); Mean Corpuscular Volume 89.6 fl (80-100); Nucleated Red Blood Cells Absolute Auto 0.000 K/mm3 (0.0-0.012); Nucleated Red Blood Cells Perc 0.0 % (0.0-0.2); Platelet Count Result 211 k/mm3 (150-375); Red Blood Count 3.46 M/mm3 (4.6-6.20); White Blood Count 10.9 K/mm3 (4.5-10.0)
[2025-07-27 04:42] LABS: Anion Gap 4 mmol/L (4-12); Blood Urea Nitrogen 25 mg/dL (9-20); Calcium 8.6 mg/dL (8.4-10.2); Carbon Dioxide 32 mmol/L (22-30); Chloride 100 mmol/L (98-107); Estimated CRCL calculation 76 ml/min; Estimated Glomerular Filt Rate > 60; Glucose 96 mg/dL (65-110); Potassium 3.7 mmol/L (3.4-5.0); Sodium 136 mmol/L (137-145)
[2025-07-27 04:51] VITALS: BP 133/67; PULSE 68; RESP 12; TEMP 36.3; O2SAT 98
[2025-07-27] MEDS: SOLIFENACIN 5 MG TABLET PO (08:00)
[2025-07-27] MEDS: ERGOCALCIFEROL (VITAMIN D2) 1,250 MCG (50,000 UNITS) CAPSULE 1250 MCG PO (08:00)
[2025-07-27] MEDS: PROCHLORPERAZINE MALEATE 5 MG TABLET 10 MG PO ×2 (08:00→17:29)
[2025-07-27] MEDS: PANTOPRAZOLE 40 MG TABLET PO ×2 (08:00→19:44)
[2025-07-27 08:01] VITALS: PULSE 68
[2025-07-27] MEDS: METOPROLOL SUCCINATE EXT REL 25 MG TABCR PO (08:01)
[2025-07-27] MEDS: LORATADINE 10 MG TABLET PO (08:01)
[2025-07-27] MEDS: HYDROcodone/acetaminophen (*CRX) 7.5-325 MG TABLET 1 TAB PO ×3 (08:02→18:10)
[2025-07-27] MEDS: ENOXAPARIN 40 MG/0.4 ML SYRINGE SUB-Q (08:02)
--- NOTE | 2025-07-27 08:18 | PM.CNOR ---
Assessment and Plan Assessment and plan (1) Avascular necrosis of bone of right hip: Onset Date: ~06/2025 Code(s): M87.051 - Idiopathic aseptic necrosis of right femur Status: Acute (2) Avascular necrosis of bone of left hip: Onset Date: ~06/2025 Code(s): M87.052 - Idiopathic aseptic necrosis of left femur Status: Acute (3) Fracture of left distal radius: Onset Date: 06/2025 Qualifiers: Encounter type: initial encounter Fracture type: closed Fracture morphology: Colles' Qualified Code(s): S52.532A - Colles' fracture of left radius, initial encounter for closed fracture Code(s): S52.502A - Unspecified fracture of the lower end of left radius, initial encounter for closed fracture Status: Acute (4) Fracture of right distal radius: Onset Date: 06/2025 Qualifiers: Encounter type: initial encounter Fracture type: closed Fracture morphology: Colles' Qualified Code(s): S52.531A - Colles' fracture of right radius, initial encounter for closed fracture Code(s): S52.501A - Unspecified fracture of the lower end of right radius, initial encounter for closed fracture Status: Acute Plan The patient is a 70-year-old male with a long history of prostate cancer with bilateral hip AVN and more recently a left pubic rami fractures that explains his groin pain with no evidence of metastatic disease to his hips by MRI evaluation however he does have AVN that has been documented for well over 10 years now. More than likely his groin pain is as a result of the pubic rami fracture and not from AVN. I would recommend no surgical intervention for his left hip. Equally I would recommend no surgical intervention for his bilateral wrists and he is to be treated with immobilization currently in a temporary splint. I will see him back a week from his discharge and we will definitively treat him conservatively for his bilateral wrist fractures I spoke today with his and she understands the treatment plan. He is to be evaluated by rehab and also provided a walker with bilateral platform modifications so that he can bear weight on his elbow which will help get around secondary to his pubic rami fracture. I personally reviewed the MRI as well as discuss the MRI with the radiologist. History of Present Illness HPI Consult date: 07/27/25 Chief complaint: bilateral wrist fractures and Left Hip pain Narrative: The patient is feeling significantly better today he is sitting up and eating his breakfast. He was able to bear some weight on this left lower extremity but still with some pain. [facility] Past Medical History Medical History Colles' fracture of left radius, initial encounter for closed fracture Family History Family History Other Family history of cardiovascular disease Family history of malignant neoplasm Hypertension Social History Social History Smoking status: Current some day smoker Smokeless tobacco user: other Additional smoking assessment comments: Marijuana Alcohol intake: never Substance use: current Substance use type: marijuana Other substance usage details: Daily Last use: 07/22 Lack of Transportation: No Lack of Food: Never True Current Housing: I Have Housing Concerned About Future Housing: No Difficulty Paying Gas/Electric Bills: No Difficulty Paying for Meds: No Currently Unemployed: No Education: Associate Degree Difficulty w/ Childcare or Family Care: No Living arrangements: with family Spiritual care concerns: No Meds Home Medications and Allergies Home Medications ?Medication ?Instructions ?Recorded ?Confirmed ?Type ergocalciferol (vitamin D2) 1,250 1,250 mcg PO DAILY 12/24/21 07/23/25 History mcg (50,000 unit) capsule hydrocodone 7.5 mg-acetaminophen 1 tablet PO Q4-6H PRN Pain 12/24/21 07/23/25 History 325 mg tablet leuprolide 3.75 mg intramuscular See Rx Instructions .Route .COMPLEX 12/24/21 07/23/25 History pantoprazole 40 mg tablet,delayed 40 mg PO BID 10/18/22 07/23/25 History release olanzapine 5 mg tablet 5 mg PO QPM 06/03/25 07/23/25 History prednisone 10 mg tablet 10 mg PO DAILY 06/03/25 07/23/25 History lisinopril 20 mg tablet 20 mg PO DAILY 07/23/25 07/23/25 History metoprolol succinate 25 mg 25 mg PO DAILY 07/23/25 07/23/25 History tablet,extended release 24 hr prochlorperazine maleate 10 mg 10 mg PO BID 07/23/25 07/23/25 History tablet (Compazine) solifenacin 5 mg tablet (Vesicare) 5 mg PO DAILY 07/23/25 07/23/25 History loratadine 10 mg tablet 10 mg PO DAILY 07/24/25 07/24/25 History (Allerclear) Allergies Allergy/AdvReac Type Severity Reaction Status Date / Time meperidine AdvReac Nausea and Verified 07/23/25 14:57 Vomiting Vital Signs Vital Signs - 24 hr 07/26/25 09:00 07/26/25 09:01 07/26/25 13:46 Temperature 36.5 C Pulse Rate 72 76 Respiratory Rate 14 Blood Pressure 121/78 Pulse Oximetry 98 Oxygen Delivery Room Air 07/26/25 20:00 07/26/25 20:09 07/27/25 04:51 Temperature 36.6 C 36.3 C L Pulse Rate 69 68 Respiratory Rate 12 12 Blood Pressure 135/71 133/67 Pulse Oximetry 99 98 Oxygen Delivery Room Air 07/27/25 08:01 Temperature Pulse Rate 68 Respiratory Rate Blood Pressure Pulse Oximetry Oxygen Delivery Exam Narrative: Bilateral upper extremity examination reveals he is currently in a splint with intact sensation to all his digits and he is using his hand quite well for eating his breakfast. He is using both hands equally. He still has significant groin pain with abduction of the left hip. Const: General: cooperative, healthy appearing, alert and awake Orientation/consciousness: oriented to person, oriented to place, oriented to time and patient oriented x3 Results Labs 07/27/25 04:19 07/27/25 04:19 Labs: Abnormal lab results 07/27/25 Range/Units 04:19 WBC 10.9 H (4.5-10.0) K/mm3 RBC 3.46 L (4.6-6.20) M/mm3 Hgb 10.1 L (14.0-18.0) g/dL Hct 31.0 L (42.0-52.0) % Immature Gran % (Auto) 1.4 H (0-0.5) % Neut % (Auto) 84.9 H (45.5-73.1) % Lymph % (Auto) 8.4 L (18.3-44.2) % Abs Immat Gran (auto) 0.15 H (0.00-0.031) K/mm3 Absolute Neuts (auto) 9.3 H (1.3-6.7) K/mm3 Sodium 136 L (137-145) mmol/L Carbon Dioxide 32 H (22-30) mmol/L BUN 25 H (9-20) mg/dL Creatinine 0.63 L (0.7-1.3) mg/dL H & H 07/25/25 07/26/25 07/27/25 Range/Units 04:46 04:27 04:19 Hgb 10.4 L 10.3 L 10.1 L (14.0-18.0) g/dL Hct 32.4 L 32.9 L 31.0 L (42.0-52.0) % All other labs normal.
[2025-07-27 14:00] VITALS: BP 117/61; PULSE 71; RESP 14; TEMP 36.8; O2SAT 98
--- NOTE | 2025-07-27 15:40 | P.DS_ITS ---
DS: Admitting Diagnosis Discharge Date 07/27/2025 Admitting Diagnosis Bilateral wrist pain, left hip pain after mechanical fall DS: Discharge Diagnosis Discharge Diagnosis (1) Avascular necrosis of bone of right hip: Onset Date: ~06/2025 Code(s): M87.051 - Idiopathic aseptic necrosis of right femur Status: Acute (2) Avascular necrosis of bone of left hip: Onset Date: ~06/2025 Code(s): M87.052 - Idiopathic aseptic necrosis of left femur Status: Acute (3) Fracture of left distal radius: Onset Date: 06/2025 Qualifiers: Encounter type: initial encounter Fracture type: closed Fracture morphology: Colles' Qualified Code(s): S52.532A - Colles' fracture of left radius, initial encounter for closed fracture Code(s): S52.502A - Unspecified fracture of the lower end of left radius, initial encounter for closed fracture Status: Acute (4) Fracture of right distal radius: Onset Date: 06/2025 Qualifiers: Encounter type: initial encounter Fracture type: closed Fracture morphology: Colles' Qualified Code(s): S52.531A - Colles' fracture of right radius, initial encounter for closed fracture Code(s): S52.501A - Unspecified fracture of the lower end of right radius, initial encounter for closed fracture Status: Acute (5) History of colon polyps: Code(s): Z86.010 - Personal history of colon polyps Status: Acute DS: Summary Hospital Course Reason for hospitalization: Hip pain Hospital Course: Patient is a 70-year-old male with is of prostate cancer status post prostatectomy on maintenance chemotherapy who presents with left hip pain after a fall when he was at home trying to lift a pumpkin fall backward and landed onto his left hip also tried to break his fall his he outstretched upper extremity that ended up breaking his wrist. He was evaluated by Ortho. MRI hip was reviewed by Orthopedics that concluded there is no metastasis diseases. However they concluded that he had a stable superior and inferior nondisplaced pubic rami fracture which explains his left hip groin pain that may not require intervention. Orthopedics recommend weight-bearing as tolerated. PT/OT work with him and they recommend a swing bed admission. Patient and his agreed to go to the swing bed. He remains hemodynamically stable. He was discharged. Status at Discharge Functional status at discharge: uses cane/walker Time Spent with Patient Time attestation: 45 minutes Total time spent providing and/or coordinating discharge services: Exam Narrative: GENERAL: in mild distress HEENT: Nonicteric sclerae, PERRLA, EOMI. Oropharynx clear. Moist mucous membranes. Conjunctivae appear well perfused. CHEST: Chest wall is nontender. HEART: Regular rate and rhythm without murmur, rubs, or gallops LUNGS: Clear to auscultation bilaterally. no respiratory distress ABDOMEN: Soft, positive bowel sounds, non-tender, no organomegaly. SKIN: No rash, no excessive bruising, petechiae, or purpura. NEUROLOGIC: Cranial nerves II-XII intact, alert and oriented x 3, no gross motor deficits but movement is limited due to pain EXTREMITIES: no edema, cyanosis or clubbing Bilateral forearm with splint Left hip tender anteriorly restricted range of motion DS: Data Data Completed and Pending Labs on day of discharge: Labs from last 24 hours 07/27/25 04:19 WBC 10.9 H RBC 3.46 L Hgb 10.1 L Hct 31.0 L MCV 89.6 MCH 29.2 MCHC 32.6 RDW 14.1 Plt Count 211 MPV 9.4 Immature Gran % (Auto) 1.4 H Neut % (Auto) 84.9 H Lymph % (Auto) 8.4 L Mcintosh % (Auto) 4.8 Eos % (Auto) 0.1 Baso % (Auto) 0.4 Lymph # (Auto) 0.92 Mcintosh # (Auto) 0.5 Eos # (Auto) 0.0 Baso # (Auto) 0.0 Abs Immat Gran (auto) 0.15 H Absolute Neuts (auto) 9.3 H Absolute Nucleated RBC 0.000 Nucleated RBC % 0.0 Sodium 136 L Potassium 3.7 Chloride 100 Carbon Dioxide 32 H Anion Gap 4 BUN 25 H Creatinine 0.63 L Estim Creat Clear Calc 76 Estimated GFR > 60 Glucose 96 Calcium 8.6 Discharge Plan Discharge Attending physician on discharge: Kailee Andres Consulting providers: Tanner Anthony; Kailee Andres Discharging Clinician: Kailee Andres Anticipated Discharge Date/Time: 07/27/25 15:37 Patient Disposition: Hospital Swing Bed Activity: may shower and follow weight bearing status Diet: as tolerated Discharge Instructions: Fall risk Please take extra caution when you get up and walk Please use your walker NPO you feel better Patient Instructions: Antibiotic Form Patient Language: Faroese Stand Alone Forms: General Discharge Information Discharge Medications: Continued leuprolide 3.75 mg Injectable See Rx Instructions .ROUTE .COMPLEX Rx Instructions: . hydrocodone-acetaminophen 7.5-325 mg tablet 1 tablet PO Q4-6H PRN (Reason: Pain) olanzapine 5 mg tablet 5 mg PO QPM prednisone 10 mg tablet 10 mg PO DAILY pantoprazole 40 mg tablet,delayed release (DR/EC) 40 mg PO BID lisinopril 20 mg tablet 20 mg PO DAILY metoprolol succinate 25 mg tablet extended release 24 hr 25 mg PO DAILY prochlorperazine maleate [Compazine] 10 mg tablet 10 mg PO BID solifenacin [Vesicare] 5 mg tablet 5 mg PO DAILY loratadine [Allerclear] 10 mg tablet 10 mg PO DAILY Patient Comments: Uses this every morning for a week after chemo treatment. No Action ergocalciferol (vitamin D2) 1,250 mcg (50,000 unit) capsule 1,250 mcg PO DAILY Date of admission: 07/24/25 13:13 Primary Care Provider: Arvind Castellanos Admitting Provider: Constantino Oscar Attending physician on admission: Constantino Oscar Condition: Improved
[2025-07-27] MEDS: DOCUSATE SODIUM 100 MG CAPSULE PO (19:44)
[2025-07-27] MEDS: HEPARIN SODIUM LOCK FLUSH 500 UNITS/5 ML SYRINGE IV PUSH (19:45)
== END 2025-07-27 19:51 | disposition swing bed (61) | DRG 536 ==
PROVIDERS: Internal Medicine; Admitting Provider Internal Medicine; PCP Internal Medicine; Visit Provider Student in an Organized Health Care Education/Training Program
DX: S32.592A Other specified fracture of left pubis, initial encounter for closed fracture (principal); S52.501A Unspecified fracture of the lower end of right radius, initial encounter for closed fracture; S52.502A Unspecified fracture of the lower end of left radius, initial encounter for closed fracture; M87.051 Idiopathic aseptic necrosis of right femur; M87.052 Idiopathic aseptic necrosis of left femur; M16.0 Bilateral primary osteoarthritis of hip; I10 Essential (primary) hypertension; C61 Malignant neoplasm of prostate; K21.9 Gastro-esophageal reflux disease without esophagitis; W18.30XA Fall on same level, unspecified, initial encounter; F12.20 Cannabis dependence, uncomplicated; Z91.81 History of falling; Z79.891 Long term (current) use of opiate analgesic; Z79.52 Long term (current) use of systemic steroids; Z79.60 Long term (current) use of unspecified immunomodulators and immunosuppressants
CPT/HCPCS: 36415; 73552; 73721; 80048; 80053; 81001; 83735; 85025; 85027; 97162; 97166; A9270; J1642; J1650; J2270; J7512

== ENCOUNTER 2025-07-27 20:43 | Inpatient (IN) | payer MEDICARE, OTHER, SELFPAY ==
--- OUTSIDE RECORDS SUMMARY | 2025-07-27 20:46 | XMS_ITS | Clinical Summary ---
Author Organization [facility] Address [address] [place] [address] Care Team Providers Care Metallurgy Laboratory Technician Name Role Phone Unavailable Primary Care Provider Unavailabl e Source Comments [facility],non-owned Affiliates and Associated Physician Practices is amultiple site organization consisting of ambulatory clinics and hospital sitesin [place], [place], [place] and [place]. This disclosure is being madepursuant to the Care Everywhere program and may not contain all information available regarding this patient. 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
--- OUTSIDE RECORDS SUMMARY | 2025-07-27 20:46 | XMS_ITS | Encounter Summary ---
Author Organization 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
--- OUTSIDE RECORDS SUMMARY | 2025-07-27 20:46 | XMS_ITS | Clinical Summary ---
Author Organization [facility] Address [address] [place] [address] Care Team Providers Care Manager Creative Services Name Role Phone Arvind Castellanos MD Primary [...] by mouth daily. Active vitamin D2, ergocalciferol, 74661 UNITS capsule Take 50,000 Units by mouth. 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 Care Teams Manager Creative Services Relationship Specialty Start Date End Date Arvind Castellanos MD [address] [place] [address] PCP - General INTERNAL MEDICINE 12/26/21
--- OUTSIDE RECORDS SUMMARY | 2025-07-27 20:47 | XMS_ITS ---
Author Organization [facility] Address [address] [place] [address] Care Team Providers Care Automotive Refinish Technician Name Role Phone Arvind Castellanos MD Primary Care Provider [phone] Patrick Perez MD Unavailable [phone] Active Problems Problem Noted Date Diagnosed Date [...] Treatment Medications Discontinue Reason Plan Provider Cycles [id number] - [facility] - - [id number] PART 1B DOSE EXPANSION ARM Cohort 11&13(Q3W x 4 induction cycles, Q6W maintenance) - ARX 517 5 04/14/2025 INV-[facility] (/A [id number]) [id number] IVPB in 250 mLINV-[facility] brimonidine 0.2 % (/A [id number])INV -[facility] Systane Complete PF (/A [id number])INV -[facility] Systane Nighttime Lubricant (/A [id number]) Progressive Disease Kemal Guillaume MD 7 of 8 cycles started Sipuleucel-T 14 Day Cycles - Prostate 01/24/2024 05/05/2024 sotdvovmcj-T-s actated ringers (PROVENGE) >50 million cell/250 mL [...]
--- OUTSIDE RECORDS SUMMARY | 2025-07-27 20:47 | XMS_ITS | Encounter Summary ---
Author Organization [facility] Address [address] [place] [address] Phone Care Team Providers Care Remote Sensing Advisor Name Role Phone Arvind Castellanos MD Primary Care Provider [phone] Patrick Perez MD Unavailable [phone] Encounter Details Date Type Department Care Team (Late st Contact Info) Description 07/26/2025 Telephone [facility] Medicine Oncology [address] [place] [id number] Sharmin De La Vega, RN Social History Tobacco Use Types Packs/Day Years Used Date Smoking Tobacco: Never Smokeless Tobacco: Never Alcohol Use Standard Drinks/Week Comments No 0 (1 standard drink = 0.6 oz pur e alcohol) Sex and Gender Information Value Date Recorded Sex Assigned at Not on file 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 Last fell and fx'd both wrists and now has a hip issue and thinking of doing hip replacement. In [facility] waiting for a hip replacement. Not sure when or where it will be done. [facility] in [place], [place]. Checking for METS Avascular necrosis from previous rad onc tx's Called [facility] and requested MRI's be pushed to [facility]. Will fax requests to [phone] team updated STANT OFFICE MANAGER documented in this encounter Plan of Treatment Not on file documented as of this encounter Visit Diagnoses Not on filedocumented in this encounter Care Teams Remote Sensing Advisor Relationship Specialty Start Date End Date Arvind Castellanos MD PCP - General 12/24/17 Patrick Perez MD [address] [place] [id number] Urology 07/27/21 documented as of this encounter
--- OUTSIDE RECORDS SUMMARY | 2025-07-27 20:47 | XMS_ITS ---
Author Organization [facility] Address [address] [place] [address] Phone Care Team Providers Care Chef Head Name Role Phone Arvind Castellanos MD Primary Care Provider [phone] Active Problems Problem Noted Date Diagnosed Date [...]
--- OUTSIDE RECORDS SUMMARY | 2025-07-27 20:47 | XMS_ITS | Encounter Summary ---
Author Organization [facility] Address [address] [place] [address] Phone Care Team Providers Care Can Closing Machine Tender Name Role Phone Arvind Castellanos MD Primary Care Provider [phone] Patrick Perez MD Unavailable [phone] Encounter Details Date Type Department Care Team (Late st Contact Info) Description 02/01/2023 Telephone [facility] Medicine Oncology [address] [place] [id number] Sandra Davila., B.A. 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
--- OUTSIDE RECORDS SUMMARY | 2025-07-27 20:47 | XMS_ITS | Clinical Summary ---
Author Organization [facility] Address [address] [place] [address] Care Team Providers Care Process Controls Technician Name Role Phone Arvind Castellanos MD Primary Care Provider [phone] Patrick Perez MD Unavailable [phone] Allergies Active Allergy Reactions Criticality Noted Date [...] Encounters Date Type Department Care Team Description 07/26/2025 Telephone [facility] Medicine Oncology [address] [place] [address] [place] [address] Sharmin De La Vega, RN 07/15/2025 Telephone [facility] Medicine Oncology [address] [place] [address] 100 [place] [address] Sharmin De La Vega, RN 07/14/2025 9:30 AM CDT [facility] at [address] [place] [address] 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); Prostate cancer (HCC); 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) 07/14/2025 9:00 AM CDT [facility] [address] [place] [address] 100 [place] [address] Gladis Savage NP 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); Prostate cancer (HCC); 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); Osteoporosis without current pathological fracture, unspecified osteoporosis type 07/14/2025 8:00 AM CDT Clinical Support [facility] at [address] [place] [address] Prostate cancer (HCC); 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) 06/23/2025 9:30 AM CDT Infusion [facility] at [address] [place] [address] 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); Prostate cancer (HCC); 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) 06/23/2025 9:00 AM CDT Office Visit [facility] [address] [place], [place] [address], [place] [phone] Junaid Cifuentes MD PhD 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); Prostate cancer (HCC) 06/23/2025 8:00 AM CDT Clinical Support [address] [place] [address] Prostate cancer (HCC); 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) 06/16/2025 9:00 AM CDT Office Visit [facility] Oncology [address] [place], [place] [address] [address] Gladis Savage NP 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); Prostate cancer (HCC) 06/16/2025 8:00 AM CDT Clinical Support [address] [place] [address] Prostate cancer (HCC); 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) 06/14/2025 Orders Only [facility] Scanning, Provider 06/11/2025 Telephone [facility] [address] [place] [address] [address] [place], [place] [phone] Tierney Magana RN 06/09/2025 Telephone [facility] Medicine Oncology [address] [place] [address] [address] [place], [place] [phone] Sharmin De La Vega, POLINA 06/07/2025 Telephone [facility] Medicine Oncology [address] [place] [address] [address] [place], [place] [address] Sharmin De La Vega, POLINA 06/04/2025 Telephone [facility] Medicine Oncology [address] [place] [address] [address] [place], [place] [phone] Yudith Orozco CMA 06/04/2025 Orders Only [facility] Medicine Oncology [address] [facility] Floor 5 [place] [address] Sharmin De La Vega, POLINA 06/03/[address] [address] He Almaraz MD 06/03/2025 Telephone [facility] Oncology [facility] Floor [address] [place] [address] Radha Healy 05/27/2025 Telephone [facility] Oncology [address] [place] [address] [address] [place], [place] [address] Alfonso Macias, POLINA 05/26/2025 9:30 AM CDT Infusion [facility] at [address] [place], [place] [address] 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); Prostate cancer (HCC); 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) 05/26/2025 9:00 AM CDT Office Visit [facility] Oncology [address] [place] [address] [address] [place], [place] [phone] Junaid Cifuentes MD PhD 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); Prostate cancer (HCC) 05/26/2025 8:00 AM CDT Clinical Support [facility] at [facility] [address] [facility] [place] [address] Prostate cancer (HCC); 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) 05/26/2025 Orders Only [facility] - Infusion [address] [facility] Floor 5 [place] [address] Rigoberto Walls [facility] 05/06/2025 Telephone [facility] Oncology [address] [place] [address] [address] [place], [place] [address] Tierney Magana RN 05/05/2025 9:30 AM CDT Infusion [facility] at [address] [place], [place] [address] 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); Prostate cancer (HCC) 05/05/2025 9:00 AM CDT Office Visit [facility] Oncology [address] [place] [address] [address] [place] [address] Gladis Savage, ALTON Prostate cancer (HCC); 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) 05/05/2025 8:00 AM CDT Clinical Support [facility] at [address] [place] [address] Prostate cancer (HCC); 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); Research study patient 05/05/2025 Documentation [facility] at [facility] [address] [facility] [place] [address] 05/03/2025 Orders Only [facility] Oncology [address] [place] [address] [address] [place], [place] [address] Junaid Cifuentes MD PhD Research study patient 04/28/2025 7:42 AM CDT - 04/28/2025 11:59 PM CDT Hospital Encounter [facility] [address] [place] [address] Vida Weller RN Garcia, Susan, RN Prostate cancer (HCC) Discharge Disposition: Discharge to home or self care 04/27/2025 Telephone [facility] [address] [place] [address] Padmini Webb RN from Last 3 Months [...] on file Legal Sex Male 4:46 AM [employer] Gender Identity Not on file Sexual Orientation [...] history exists Medical Devices Implanted Type Area Coverage Analyst Device Identifier Shelf Expiration Date Model / Serial / Lot [employer] Excela Low Porfile Power Port 8fr 1.6mm 1 Lumen [id number] - [id number] Implanted:Qty: 1 on 04/28/2025 at [facility] [employer] 12/13/2029 [id number] / / [id number] Procedures Procedure Name Priority Date/Time Associated Diagnosis [...] was last reviewed 2021. Testing performed by: [facility], [address] [place] [address] Blood 07/14/2025 7:48 AM CDT 07/14/2025 8:19 AM CDT us Junaid Cifuentes MD PhD LAB BLOOD ORDERABLES Final Result [facility] HEL[facility] [address] [address]. Department [place] [address] * (ABNORMAL) Differential, auto (07/14/2025 7:48 AM CDT) Neutrophil abs 12.29(H) 1.50 - 6.50 K/cumm Comment:Testing performed by : [facility], [facility], [address] [place] [address] Imm gran abs 0.07 0.00 - 0.10 K/cumm GORAN HELM Comment:Testing performed by : [facility] 2, [address] [place] [address] Lymphocyte abs 0.64(L) 0.80 - 3.30 K/cumm GORAN HELM Comment:Testing performed by : [facility] 2, [address] [place] [address] Monocyte abs 0.76 0.20 - 0.80 K/cumm GORAN HELM Comment:Testing performed by : [facility] 2, [address] [place] [address] Eosinophil abs 0.01 0.00 - 0.50 K/cumm GORAN HELM Comment:Testing performed by : [facility] 2, [address] [place] [address] Basophil abs 0.03 0.00 - 0.10 K/cumm CERNER BJWCH Comment:Testing performed by : [facility], [facility], [address] [place] [address] Neutrophil pct 89.1 % CERNER BJWCH Comment: Interpretive Data Percent cell count reference ranges are not reported, since discordance with absolute values may lead to misinterpretation of CBC data. Current Interpretive Data was last revised on 2017. Testing performed by: [facility], [facility], [address] [place] [address] Imm gran pct 0.5 % CERNER BJWCH Comment: Interpretive Data Percent cell count reference ranges are not reported, since discordance with absolute values may lead to misinterpretation of CBC data. Current Interpretive Data was last revised on 2017. Testing performed by: [facility], [facility], [address] [place] [address] Lymphocyte pct 4.6 % CERNER BJWCH Comment: Interpretive Data Percent cell count reference ranges are not reported, since discordance with absolute values may lead to misinterpretation of CBC data. Current Interpretive Data was last revised on 2017. Testing performed by: [facility], [facility], [address] [place] [address] Monocyte pct 5.5 % CERNER BJWCH Comment: Interpretive Data Percent cell count reference ranges are not reported, since discordance with absolute values may lead to misinterpretation of CBC data. Current Interpretive Data was last revised on 2017. Testing performed by: [facility], [facility], [address] [place] [address] Eosinophil pct 0.1 % CERNER BJWCH Comment: Interpretive Data Percent cell count reference ranges are not reported, since discordance with absolute values may lead to misinterpretation of CBC data. Current Interpretive Data was last revised on 2017. Testing performed by: [facility], [facility], [address] [place] [address] Basophil pct 0.2 % CERNER BJWCH Comment: Interpretive Data Percent cell count reference ranges are not reported, since discordance with absolute values may lead to misinterpretation of CBC data. Current Interpretive Data was last revised on 2017. Testing performed by: [facility] , [address] [place] [address] Blood 07/14/2025 7:48 AM CDT 07/14/2025 7:50 AM CDT Junaid Cifuentes MD PhD LAB BLOOD ORDERABLES Final Result [facility] [address] [facility]. [facility] [place] [address] * (ABNORMAL) CBC with auto differential (07/14/2025 7:48 AM CDT) WBC 13.80(H) 3.80 - 9.90 K/cumm Comment:Testing performed by : [facility] , [address] [place] [address] Hgb 11.1(L) 13.0 - 17.5 g/dL GORAN HELM Comment:Testing performed by : [facility] 2, [address] [place] [address] Hct 34.8(L) 38.9 - 50.3 % GORAN HELM Comment:Testing performed by : [facility] 2, [address] [place] [address] Plt 255 150 - 400 K/cumm GORAN HELM Comment:Testing performed by : [facility] 2, [address] [place] [address] MPV 10.0 9.1 - 12.3 fL GORAN HELM Comment:Testing performed by : [facility] 2, [address] [place] [address] RBC 3.81(L) 4.30 - 5.80 M/cumm GORAN HELM Comment:Testing performed by : [facility], [facility], [address] [place] [address] MCV 91.3 81.3 - 96.4 fL [facility] Comment:Testing performed by : [facility], [facility], [address] [place] [address] MCH 29.1 27.1 - 33.3 pg GORAN YOUSSEFWCH Comment:Testing performed by : [place] [address], [address] [place] [address] MCHC 31.9(L) 32.3 - 35.7 g/dL [facility] Comment:Testing performed by : [place] [address], [address] [place] [address] RDW CV 14.6 11.1 - 14.9 % GORAN YOUSSEFCH Comment:Testing performed by : [place] [address], [address] [place] [address] RDW SD 48.0 35.7 - 48.1 fL GORAN YOUSSEFW Comment:Testing performed by : [facility], [facility], [address] [place] [address] ANC Prelim 12.29(H) 1.50 - 6.50 K/cumm [facility] Comment: Interpretive Data The rapid ANC is a preliminary automated count and may vary from the final ANC (Neut Abs) reported in the WBC differential that follows. Current interpretive data was last revised 2024. Testing performed by: [facility], [facility], [address] [place] [address] Blood 07/14/2025 7:48 AM CDT 07/14/2025 7:50 AM CDT us Junaid Cifuentes MD PhD LAB BLOOD ORDERABLES Final Result [facility] [address] [facility] [place] [address] * (ABNORMAL) PSA diagnostic (07/14/2025 7:48 AM [...] data last revised 22. Testing performed by: [facility], [address] [place] [address] Blood 07/14/2025 7:48 AM CDT 07/14/2025 8:19 AM CDT Junaid Cifuentes MD PhD LAB BLOOD ORDERABLES Final Result [facility] [address] [address]. Department [place] [address] * (ABNORMAL) Comprehensive metabolic panel (07/14/2025 7:48 AM CDT) Pathologist [facility] Sodium 143 135 - 145 mmol/L Comment:Testing performed by : [facility], [address] [place] [address] Potassium, pl 4.3 3.3 - 4.9 mmol/L CERNICHOLE BJESTEBAN Comment:Testing performed by : [facility], [address] [place] [address] Chloride 106 97 - 110 mmol/L CERNICHOLE YOUSSEFWCH Comment:Testing performed by : [facility], [address] [place] [address] CO2 27 22 - 32 mmol/L CERNICHOLE YOUSSEFWCH Comment:Testing performed by : [facility], [address] [place] [address] Anion gap 10 2 - 15 mmol/L GORAN YOUSSEFWCH Comment:Testing performed by : [facility], [address], [place] [address] BUN 27(H) 6 - 25 mg/dL CERNER BJWCH Comment:Testing performed by : [facility], [address], [place] [address] Creatinine 0.71(L) 0.80 - 1.30 mg/dL CERNER BJWCH Comment:Testing performed by : [facility], [address], [place] [address] Glucose 125 70 - 199 mg/dL CERNER [...] was last revised 2022. Testing performed by: [facility], [address], [place] [address] Calcium 9.5 8.5 - 10.3 mg/dL CERNER BJWCH Comment:Testing performed by : [facility], [address], [place] [address] Bilirubin, total 0.2 0.1 - 1.2 mg/dL CERNER BJWCH Comment:Testing performed by : [facility], [address], [place] [address] Protein, pl 6.1(L) 6.5 - 8.5 g/dL CERNER BJWCH Comment:Testing performed by : [facility], [address], [place] [address] Albumin 3.8 3.5 - 5.0 g/dL CERNER BJWCH Comment:Testing performed by : [facility], [address], [place] [address] Alk phos 78 40 - 130 Units/L CERNER BJW[facility] Comment:Testing performed by : [facility], [address], [place] [address] ALT 14 7 - 55 Units/L GORAN HELM Comment:Testing performed by : [facility], [address], [place] [address] AST 16 10 - 50 Units/L GORAN HELM Comment:Testing performed by : [facility], [address], [place], [place] [address] Blood 07/14/2025 7:48 AM CDT 07/14/2025 8:19 AM CDT us Junaid Cifuentes MD PhD LAB BLOOD ORDERABLES Final Result [facility] [address] [address]. Department [place] [address] * eGFR (06/23/2025 8:10 AM CDT) eGFR [...] was last reviewed 2021. Testing performed by: [facility], [address], [place] [address] Blood 06/23/2025 8:10 AM CDT 06/23/2025 8:44 AM CDT us Junaid Cifuentes MD PhD LAB BLOOD ORDERABLES Final Result [facility] [address] [address] [facility]. Department [place] [address] * (ABNORMAL) Differential, auto (06/23/2025 8:10 AM CDT) Neutrophil abs 7.77(H) 1.50 - 6.50 K/cumm Comment:Testing performed by : [facility] 2, [address] [place] [address] Imm gran abs 0.05 0.00 - 0.10 K/cumm CERNICHOLE BJWCH Comment:Testing performed by : [facility] 2, [address] [place] [address] Lymphocyte abs 0.51(L) 0.80 - 3.30 K/cumm CERNICHOLE BJWCH Comment:Testing performed by : [facility] 2, [address] [place] [address] Monocyte abs 0.45 0.20 - 0.80 K/cumm CERNICHOLE BJWCH Comment:Testing performed by : [place] [address], [address] [place] [address] Eosinophil abs 0.01 0.00 - 0.50 K/cumm GORAN BJWCH Comment:Testing performed by : [facility] 2, [address] [place] [address] Basophil abs 0.02 0.00 - 0.10 K/cumm CERNICHOLE BJWCH Comment:Testing performed by : [place] [address], [address] [place] [address] Neutrophil pct 88.2 % CERNICHOLE BJWCH Comment: Interpretive Data Percent cell count reference ranges are not reported, since discordance with absolute values may lead to misinterpretation of CBC data. Current Interpretive Data was last revised on 2017. Testing performed by: [place] [address], [address] [place] [address] Imm gran pct 0.6 % CERNER BJWCH Comment: Interpretive Data Percent cell count reference ranges are not reported, since discordance with absolute values may lead to misinterpretation of CBC data. Current Interpretive Data was last revised on 2017. Testing performed by: [facility], [facility], [address] [place] [address] Lymphocyte pct 5.8 % CERNER BJWCH Comment: Interpretive Data Percent cell count reference ranges are not reported, since discordance with absolute values may lead to misinterpretation of CBC data. Current Interpretive Data was last revised on 2017. Testing performed by: [facility], [facility], [address] [place] [address] Monocyte pct 5.1 % CERNER BJWCH Comment: Interpretive Data Percent cell count reference ranges are not reported, since discordance with absolute values may lead to misinterpretation of CBC data. Current Interpretive Data was last revised on 2017. Testing performed by: [facility], [facility], [address] [place] [address] Eosinophil pct 0.1 % CERNER BJWCH Comment: Interpretive Data Percent cell count reference ranges are not reported, since discordance with absolute values may lead to misinterpretation of CBC data. Current Interpretive Data was last revised on 2017. Testing performed by: [facility], [facility], [address] [place] [address] Basophil pct 0.2 % CERNER BJWCH Comment: Interpretive Data Percent cell count reference ranges are not reported, since discordance with absolute values may lead to misinterpretation of CBC data. Current Interpretive Data was last revised on 2017. Testing performed by: [facility], [facility], [address] [place] [address] Blood 06/23/2025 8:10 AM CDT 06/23/2025 8:15 AM CDT Junaid Cifuentes MD PhD LAB BLOOD ORDERABLES Final Result Performing Organization Address City/[facility]/ZIP Co de Phone Number GORAN BJW[facility] [address] [address]. Department [place] [facility] [place] [address] * Iron profile w/ IBC (06/23/2025 8:10 AM CDT) Pathologist [facility] Iron 68 50 - 150 mcg/dL Comment:Testing performed by : [facility], [address] [place] [address]., [address] TIBC 251 250 - 400 mcg/dL GORAN HELM Comment:Testing performed by : [facility], [address] [place] [address]., [address] Transferrin saturation 27 20 - 50 % GORAN YOUSSEFWESTEBAN Comment:Testing performed by : [facility], [address] [place] [address]., [address] Blood 06/23/2025 8:10 AM CDT 06/23/2025 10:04 AM CDT Gladis Savage NP LAB BLOOD ORDERABLES Final Result Performing Organization Address [facility] de Phone Number GORAN BJW[facility] [address] [employer]. Department [place] [facility] [place] [address] * (ABNORMAL) CBC with auto differential (06/23/2025 8:10 AM CDT) [facility] WBC 8.81 3.80 - 9.90 K/cumm Comment:Testing performed by : [facility], [facility], [address] [place] [address] Hgb 11.7(L) 13.0 - 17.5 g/dL GORAN HELM Comment:Testing performed by : [facility] 2, [address] [place] [address] Hct 36.7(L) 38.9 - 50.3 % GORAN HELM Comment:Testing performed by : [facility], [facility], [address] [place] [address] Plt 298 150 - 400 K/cumm CERNER BJWCH Comment:Testing performed by : [place] [address], [address] [place] [address] MPV 9.8 9.1 - 12.3 fL CERNER BJWCH Comment:Testing performed by : [place] [address], [address] [place] [address] RBC 4.10(L) 4.30 - 5.80 M/cumm CERNER BJWCH Comment:Testing performed by : [place] [address], [place] [address] MCV 89.5 81.3 - 96.4 fL CERNER BJWCH Comment:Testing performed by : [place] [address], [place] [address] MCH 28.5 27.1 - 33.3 pg CERNER BJWCH Comment:Testing performed by : [place] [address], [place] [address] MCHC 31.9(L) 32.3 - 35.7 g/dL CERNER BJWCH Comment:Testing performed by : [place] [address], [place] [address] RDW CV 13.8 11.1 - 14.9 % CERNER BJWCH Comment:Testing performed by : [place] [address] [place] [address] RDW SD 45.0 35.7 - 48.1 fL CERNER BJWCH Comment:Testing performed by : [place] [address], [address] [place] [address] ANC Prelim 7.77(H) 1.50 - 6.50 K/cumm CERNER BJWCH Comment: Interpretive Data The rapid ANC is a preliminary automated count and may vary from the final ANC (Neut Abs) reported in the WBC differential that follows. Current interpretive data was last revised 2024. Testing performed by: [place] [address], [address] [place] [address] Blood 06/23/2025 8:10 AM CDT 06/23/2025 8:15 AM CDT Junaid Cifuentes MD PhD LAB BLOOD ORDERABLES Final Result Performing Organization Address [facility] Co de Phone Number GORAN BJW[facility] [address] [address]. Department [place] [address] * (ABNORMAL) PSA diagnostic (06/23/2025 8:10 AM [...] data last revised 22. Testing performed by: [facility], [address] [place] [address] Blood 06/23/2025 8:10 AM CDT 06/23/2025 8:44 AM CDT Gladis Savage NP LAB BLOOD ORDERABLES Final Result Performing Organization Address [facility] Co de Phone Number GORAN YOUSSEFWCH [phone] [address]. Department [place] [address] * Ferritin (06/23/2025 8:10 AM CDT) Ferritin 239 30 - 400 ng/mL Comment:Testing performed by : [facility], [facility], [place]., [address] Blood 06/23/2025 8:10 AM CDT 06/23/2025 10:04 AM CDT Gladisguanakito Tracey Hussein DANG LAB BLOOD ORDERABLES Final Result [facility] [address] [address]. Department [place] [address] * (ABNORMAL) Comprehensive metabolic panel (06/23/2025 8:10 AM CDT) Sodium 142 135 - 145 mmol/L Comment:Testing performed by : [facility], [address], [place] [address] Potassium, pl 4.2 3.3 - 4.9 mmol/L GORAN RASHEEDCH Comment:Testing performed by : [facility], [address], [place] [address] Chloride 104 97 - 110 mmol/L GORAN RASHEEDCH Comment:Testing performed by : [facility], [address], [place] [address] CO2 30 22 - 32 mmol/L CERNICHOLE YOUSSEFWCH Comment:Testing performed by : [facility], [address], [place] [address] Anion gap 8 2 - 15 mmol/L GORAN YOUSSEFWCH Comment:Testing performed by : [facility], [address], [place] [address] BUN 23 6 - 25 mg/dL GORAN YOUSSEFWCH Comment:Testing performed by : [facility], [address], [place] [address] Creatinine 0.71(L) 0.80 - 1.30 mg/dL GORAN BJWCH Comment:Testing performed by : [facility], [address], [place] [address] Glucose 124 70 - 199 mg/dL CERNICHOLE BJWCH Comment: [...] was last revised 2022. Testing performed by: [facility], [address], [place] [address] Calcium 9.8 8.5 - 10.3 mg/dL CERNER BJWCH Comment:Testing performed by : [facility], [address], [place] [address] Bilirubin, total 0.3 0.1 - 1.2 mg/dL CERNER BJWCH Comment:Testing performed by : [facility], [address], [place] [address] Protein, pl 6.5 6.5 - 8.5 g/dL CERNER BJWCH Comment:Testing performed by : [facility], [address], [place] [address] Albumin 4.1 3.5 - 5.0 g/dL CERNER BJWCH Comment:Testing performed by : [facility], [address], [place] [address] Alk phos 68 40 - 130 Units/L CERNER BJWCH Comment:Testing performed by : [facility], [address], [place] [address] ALT 12 7 - 55 Units/L CERNER BJWCH Comment:Testing performed by : [facility], [address], [place] [address] AST 18 10 - 50 Units/L CERNER BJWCH Comment:Testing performed by : [facility], [address], [place] [address] Blood 06/23/2025 8:10 AM CDT 06/23/2025 8:44 AM CDT us Junaid Cifuentes MD PhD LAB BLOOD ORDERABLES Final Result [facility] [address] Department of [facility] [place] [address] * eGFR (06/16/2025 8:12 AM CDT) eGFR [...] was last reviewed 2021. Testing performed by: [facility], [address] [place] [address] Blood 06/16/2025 8:12 AM CDT 06/16/2025 8:46 AM CDT Junaid Cifuentes MD PhD LAB BLOOD ORDERABLES Final Result [facility] [address] Department [place] [address] * (ABNORMAL) Differential, auto (06/16/2025 8:12 AM CDT) Neutrophil abs 10.94(H) 1.50 - 6.50 K/cumm Comment:Testing performed by : [facility], [facility], [address] [place] [address] Imm gran abs 0.10 0.00 - 0.10 K/cumm GORAN HELM Comment:Testing performed by : [facility], [facility], [address] [place] [address] Lymphocyte abs 0.67(L) 0.80 - 3.30 K/cumm CERNER BJWCH Comment:Testing performed by : [facility], [facility], [address], [place] [address] Monocyte abs 0.87(H) 0.20 - 0.80 K/cumm CERNER BJWCH Comment:Testing performed by : [facility], [facility], [address] [place] [address] Eosinophil abs 0.00 0.00 - 0.50 K/cumm CERNER BJWCH Comment:Testing performed by : [facility], [facility], [address] [place] [address] Basophil abs 0.02 0.00 - 0.10 K/cumm CERNER BJWCH Comment:Testing performed by : [facility], [facility], [address] [place] [address] Neutrophil pct 86.8 % CERNER BJWCH Comment: Interpretive Data Percent cell count reference ranges are not reported, since discordance with absolute values may lead to misinterpretation of CBC data. Current Interpretive Data was last revised on 2017. Testing performed by: [facility], [facility], [address] [place] [address] Imm gran pct 0.8 % CERNER BJWCH Comment: Interpretive Data Percent cell count reference ranges are not reported, since discordance with absolute values may lead to misinterpretation of CBC data. Current Interpretive Data was last revised on 2017. Testing performed by: [facility], [facility], [address] [place] [address] Lymphocyte pct 5.3 % CERNER BJWCH Comment: Interpretive Data Percent cell count reference ranges are not reported, since discordance with absolute values may lead to misinterpretation of CBC data. Current Interpretive Data was last revised on 2017. Testing performed by: [facility], [facility], [address] [place] [address] Monocyte pct 6.9 % CERNER BJWCH Comment: Interpretive Data Percent cell count reference ranges are not reported, since discordance with absolute values may lead to misinterpretation of CBC data. Current Interpretive Data was last revised on 2017. Testing performed by: [facility], [facility], [address] [place] [address] Eosinophil pct 0.0 % GORAN HELM Comment: Interpretive Data Percent cell count reference ranges are not reported, since discordance with absolute values may lead to misinterpretation of CBC data. Current Interpretive Data was last revised on 2017. Testing performed by: [facility], [facility], [address] [place] [address] Basophil pct 0.2 % GORAN HELM Comment: Interpretive Data Percent cell count reference ranges are not reported, since discordance with absolute values may lead to misinterpretation of CBC data. Current Interpretive Data was last revised on 2017. Testing performed by: [facility], [facility], [address] [place] [address] Blood 06/16/2025 8:12 AM CDT 06/16/2025 8:20 AM CDT Junaid Cifuentes MD PhD LAB BLOOD ORDERABLES Final Result Performing Organization Address City/State/[facility] Co de Phone Number [facility] [address] [facility] Department [place] [address] * (ABNORMAL) CBC with auto differential (06/16/2025 8:12 AM CDT) WBC 12.60(H) 3.80 - 9.90 K/cumm Comment:Testing performed by : [facility], [facility], [address] [place] [address] Hgb 10.8(L) 13.0 - 17.5 g/dL GORAN HELM Comment:Testing performed by : [facility], [facility], [address] [place] [address] Hct 33.7(L) 38.9 - 50.3 % CERNER BJWCH Comment:Testing performed by : [facility] [address] [place] [address] Plt 299 150 - 400 K/cumm CERNER BJWCH Comment:Testing performed by : [facility] [address], [place] [address] MPV 10.3 9.1 - 12.3 fL CERNER BJWCH Comment:Testing performed by : [facility] [address] [place] [address] RBC 3.73(L) 4.30 - 5.80 M/cumm CERNER BJWCH Comment:Testing performed by : [facility] [address] [place] [address] MCV 90.3 81.3 - 96.4 fL CERNER BJWCH Comment:Testing performed by : [facility] [address] [place] [address] MCH 29.0 27.1 - 33.3 pg CERNER BJWCH Comment:Testing performed by : [facility] [address] [place] [address] MCHC 32.0(L) 32.3 - 35.7 g/dL CERNER BJWCH Comment:Testing performed by : [facility] [address] [place] [address] RDW CV 13.2 11.1 - 14.9 % CERNER BJWCH Comment:Testing performed by : [facility] [address] [place] [address] RDW SD 43.7 35.7 - 48.1 fL CERNER BJWCH Comment:Testing performed by : [address] [place] [address] ANC Prelim 10.94(H) 1.50 - 6.50 K/cumm CERNER BJWCH Comment: Interpretive Data The rapid ANC is a preliminary automated count and may vary from the final ANC (Neut Abs) reported in the WBC differential that follows. Current interpretive data was last revised 2024. Testing performed by: [facility], [facility], [address] [place] [address] Blood 06/16/2025 8:12 AM CDT 06/16/2025 8:20 AM CDT Junaid Cifuentes MD PhD LAB BLOOD ORDERABLES Final Result Performing Organization Address City/[facility] Co de Phone Number GORAN YOUSSEFWCH [phone] Department [facility] [place] [address] * (ABNORMAL) PSA diagnostic (06/16/2025 8:12 AM [...] data last revised 22. Testing performed by: [facility], [address] [place] [address] Blood 06/16/2025 8:12 AM CDT 06/16/2025 8:46 AM CDT Junaid Cifuentes MD PhD LAB BLOOD ORDERABLES Final Result Performing Organization Address City/[facility] Co de Phone Number GORAN YOUSSEFCH [address] [facility] [place] [address] * (ABNORMAL) Comprehensive metabolic panel (06/16/2025 8:12 AM CDT) Sodium 141 135 - 145 mmol/L Comment:Testing performed by : [facility], [address], [place] [address] Potassium, pl 4.2 3.3 - 4.9 mmol/L CERNER BJWCH Comment:Testing performed by : [facility], [address], [place] [address] Chloride 103 97 - 110 mmol/L CERNER BJWCH Comment:Testing performed by : [facility], [address], [place] [address] CO2 29 22 - 32 mmol/L CERNER BJWCH Comment:Testing performed by : [facility], [address], [place] [address] Anion gap 9 2 - 15 mmol/L CERNER BJWCH Comment:Testing performed by : [facility], [address], [place] [address] BUN 22 6 - 25 mg/dL CERNER BJWCH Comment:Testing performed by : [facility], [address], [place] [address] Creatinine 0.72(L) 0.80 - 1.30 mg/dL CERNER BJWCH Comment:Testing performed by : [facility], [address], [place] [address] Glucose 133 70 - 199 mg/dL CERNER [...] was last revised 2022. Testing performed by: [facility], [address], [place] [address] Calcium 9.2 8.5 - 10.3 mg/dL CERNER BJWCH Comment:Testing performed by : [facility], [address], [place] [address] Bilirubin, total 0.2 0.1 - 1.2 mg/dL CERNER BJWCH Comment:Testing performed by : [facility], [address], [place] [address] Protein, pl 6.0(L) 6.5 - 8.5 g/dL CERNER BJWCH Comment:Testing performed by : [facility], [address], [place] [address] Albumin 3.8 3.5 - 5.0 g/dL CERNER BJWCH Comment:Testing performed by : [facility], [address], [place] [address] Alk phos 67 40 - 130 Units/L CERNER BJWCH Comment:Testing performed by : [facility], [address], [place] [address] ALT 12 7 - 55 Units/L CERNER BJWCH Comment:Testing performed by : [facility], [address], [place] [address] AST 17 10 - 50 Units/L CERNER BJWCH Comment:Testing performed by : [facility], [address], [place] [address] Blood 06/16/2025 8:12 AM CDT 06/16/2025 8:46 AM CDT Junaid Cifuentes MD PhD LAB BLOOD ORDERABLES Final Result [facility] [address] Department [place] [address] * SCAN - RADIOLOGY/IMAGING (06/14/2025) Anatomical Region [...] was last reviewed 2021. Testing performed by: [facility], [address] [place] [address] Blood 05/26/2025 7:55 AM CDT 05/26/2025 8:23 AM CDT Junaid Cifuentes MD PhD LAB BLOOD ORDERABLES Final Result [facility] [address] Department [place] [address] * (ABNORMAL) Differential, auto (05/26/2025 7:55 AM CDT) Neutrophil abs 7.67(H) 1.50 - 6.50 K/cumm Comment:Testing performed by : [facility], [facility], [address] [place] [address] Imm gran abs 0.04 0.00 - 0.10 K/cumm GORAN HELM Comment:Testing performed by : [facility], [facility], [address] [place] [address] Lymphocyte abs 0.99 0.80 - 3.30 K/cumm GORAN HELM Comment:Testing performed by : [facility], [facility], [address] [place] [address] Monocyte abs 0.58 0.20 - 0.80 K/cumm CERNER BJWCH Comment:Testing performed by : [facility], [facility], [address] [place] [address] Eosinophil abs 0.00 0.00 - 0.50 K/cumm CERNER BJWCH Comment:Testing performed by : [facility], [facility], [address] [place] [address] Basophil abs 0.02 0.00 - 0.10 K/cumm CERNER BJWCH Comment:Testing performed by : [facility], [facility], [address] [place] [address] Neutrophil pct 82.6 % CERNER BJWCH Comment: Interpretive Data Percent cell count reference ranges are not reported, since discordance with absolute values may lead to misinterpretation of CBC data. Current Interpretive Data was last revised on 2017. Testing performed by: [facility], [facility], [address] [place] [address] Imm gran pct 0.4 % CERNER BJWCH Comment: Interpretive Data Percent cell count reference ranges are not reported, since discordance with absolute values may lead to misinterpretation of CBC data. Current Interpretive Data was last revised on 2017. Testing performed by: [facility], [facility], [address] [place] [address] Lymphocyte pct 10.6 % CERNER BJWCH Comment: Interpretive Data Percent cell count reference ranges are not reported, since discordance with absolute values may lead to misinterpretation of CBC data. Current Interpretive Data was last revised on 2017. Testing performed by: [facility], [facility], [address] [place] [address] Monocyte pct 6.2 % CERNER BJWCH Comment: Interpretive Data Percent cell count reference ranges are not reported, since discordance with absolute values may lead to misinterpretation of CBC data. Current Interpretive Data was last revised on 2017. Testing performed by: [facility], [facility], [address] [place] [address] Eosinophil pct 0.0 % CERNER BJWCH Comment: Interpretive Data Percent cell count reference ranges are not reported, since discordance with absolute values may lead to misinterpretation of CBC data. Current Interpretive Data was last revised on 2017. Testing performed by: [facility] [address] [place] [address] Basophil pct 0.2 % GORAN HELM Comment: Interpretive Data Percent cell count reference ranges are not reported, since discordance with absolute values may lead to misinterpretation of CBC data. Current Interpretive Data was last revised on 2017. Testing performed by: [facility] [address], [place] [address] Blood 05/26/2025 7:55 AM CDT 05/26/2025 7:56 AM CDT Junaid Cifuentes MD PhD LAB BLOOD ORDERABLES Final Result [facility] [address] [facility] Department [place] [address] * (ABNORMAL) CBC with auto differential (05/26/2025 7:55 AM CDT) WBC 9.30 3.80 - 9.90 K/cumm Comment:Testing performed by : [facility] [address] [place] [address] Hgb 14.1 13.0 - 17.5 g/dL GORAN HELM Comment:Testing performed by : [facility] [address], [address] [place] [address] Hct 43.1 38.9 - 50.3 % GOARN HELM Comment:Testing performed by : [address] [place] [address] Plt 211 150 - 400 K/cumm GORAN HELM Comment:Testing performed by : [facility] [address] [place] [address] MPV 10.1 9.1 - 12.3 fL CERNER BJWCH Comment:Testing performed by : [facility], [facility], [address] [place] [address] RBC 4.81 4.30 - 5.80 M/cumm CERNICHOLE BJWCH Comment:Testing performed by : [facility], [address] [place] [address] MCV 89.6 81.3 - 96.4 fL GORAN BJWCH Comment:Testing performed by : [facility] [address], [address] [place] [address] MCH 29.3 27.1 - 33.3 pg CERNICHOLE BJWCH Comment:Testing performed by : [facility] [address], [address] [place] [address] MCHC 32.7 32.3 - 35.7 g/dL GORAN BJWCH Comment:Testing performed by : [facility] [address], [address] [place] [address] RDW CV 12.7 11.1 - 14.9 % GORAN BJWCH Comment:Testing performed by : [facility] [address], [address] [place] [address] RDW SD 41.5 35.7 - 48.1 fL GORAN BJWCH Comment:Testing performed by : [facility], [address] [place] [address] ANC Prelim 7.67(H) 1.50 - 6.50 K/cumm GORAN BJWCH Comment: Interpretive Data The rapid ANC is a preliminary automated count and may vary from the final ANC (Neut Abs) reported in the WBC differential that follows. Current interpretive data was last revised 2024. Testing performed by: [facility] [address], [address] [place] [address] Blood 05/26/2025 7:55 AM CDT 05/26/2025 7:56 AM CDT Junaid Cifuentes MD PhD LAB BLOOD ORDERABLES Final Result [facility] [address] [facility]. [facility] [place] [address] * 1,25 Dihydroxycholecalciferol (05/26/2025 7:55 AM CDT) 1-25-di-OH Vit D 35 18 - 64 pg/mL [facility] Comment: ADDITIONAL INFORMATION This test was developed and its performance characteristics determined by [facility] in a manner consistent with CLIA requirements. This test has not been cleared or approved by the U.S. Food and Drug Administration. Test Performed by: [facility] [address] [place] [address] [employer] [employer] Supervisor: Angelique Gomez Ph.D.; CLIA# [id number] Testing performed by: [facility], [address] [place] [address] Blood 05/26/2025 7:55 AM CDT 05/26/2025 10:06 AM CDT Junaid Cifuentes MD PhD LAB BLOOD ORDERABLES Final Result Performing Organization Address City/[facility]/ZIP Co de Phone Number [facility]AN BJW[facility] [address] [facility]. Department of [facility] [place] [address] [facility] * (ABNORMAL) PSA diagnostic (05/26/2025 [...] data last revised 22. Testing performed by: [facility], [address] [place] [address] Blood 05/26/2025 7:55 AM CDT 05/26/2025 8:23 AM CDT Junaid Cifuentes MD PhD LAB BLOOD ORDERABLES Final Result [facility] [address] Department [place] [address] * (ABNORMAL) Comprehensive metabolic panel (05/26/2025 7:55 AM CDT) Sodium 141 135 - 145 mmol/L Comment:Testing performed by : [facility], [address] [place] [address] Potassium, pl 4.3 3.3 - 4.9 mmol/L GORAN HELM Comment:Testing performed by : [facility], [address] [place] [address] Chloride 101 97 - 110 mmol/L GORAN HELM Comment:Testing performed by : [facility], [address] [place] [address] CO2 30 22 - 32 mmol/L CERNICHOLE YOUSSEFWCH Comment:Testing performed by : [facility], [address] [place] [address] Anion gap 10 2 - 15 mmol/L GORAN YOUSSEFWESTEBAN Comment:Testing performed by : [facility], [address] [place] [address] BUN 22 6 - 25 mg/dL GORAN YOUSSEFWCH Comment:Testing performed by : [facility], [address], [place] [address] Creatinine 0.90 0.80 - 1.30 mg/dL GORAN BJWCH Comment:Testing performed by : [facility], [address], [place] [address] Glucose 152 70 - 199 mg/dL CERNICHOLE BJWCH Comment: [...] was last revised 2022. Testing performed by: [facility], [address], [place] [address] Calcium 9.6 8.5 - 10.3 mg/dL CERNER BJWCH Comment:Testing performed by : [facility], [address], [place] [address] Bilirubin, total 0.3 0.1 - 1.2 mg/dL CERNER BJWCH Comment:Testing performed by : [facility], [address], [place] [address] Protein, pl 6.4(L) 6.5 - 8.5 g/dL CERNER BJWCH Comment:Testing performed by : [facility], [address], [place] [address] Albumin 4.4 3.5 - 5.0 g/dL CERNER BJWCH Comment:Testing performed by : [facility], [address], [place] [address] Alk phos 76 40 - 130 Units/L CERNER BJWCH Comment:Testing performed by : [facility], [address], [place] [address] ALT 19 7 - 55 Units/L CERNER BJWCH Comment:Testing performed by : [facility], [address], [place] [address] AST 18 10 - 50 Units/L CERNER BJWCH Comment:Testing performed by : [facility], [address], [place] [address] Blood 05/26/2025 7:55 AM CDT 05/26/2025 8:23 AM CDT us Junaid Cifuentes MD PhD LAB BLOOD ORDERABLES Edited Result - Final [facility] [address] [address] Department [place] [address] * (ABNORMAL) Urinalysis reflex to microscopic (05/05/2025 8:30 AM CDT) Color, ur Straw Yellow Comment:Testing performed by : [facility], [address], [place] [address] Clarity, ur Clear Clear CERNICHOLE HELM Comment:Testing performed by : [facility], [address], [place] [address] Specific gravity, ur 1.022 1.003 - 1.030 GORAN RASHEEDCH Comment:Testing performed by : [facility], [address], [place] [address] pH, urine 6.0 GORAN HELM Comment: Interpretive Data U rine pH is affected by diet, medications, systemic acid-base disturbances, and renal tubular function. pH may affect urinary stone formation. For example, urine pH below 6.0 may help reduce the tendency for calcium phosphate stones and pH greater than 6.0 may reduce the tendency for uric acid stone formation. Source: [facility] Current Interpretive Data was last revised on 2017 Testing performed by: [facility], [address], [place] [address] Protein, ur ql 1+(A) Negative CERNICHOLE YOUSSEFWCH Comment:Testing performed by : [facility], [address], [place] [address] Glucose, ur ql Negative Negative CERNER BJWCH Comment:Testing performed by : [facility], [address], [place] [address] Ketones, ur Negative Negative CERNER BJWCH Comment:Testing performed by : [facility], [address], [place] [address] Bilirubin, ur Negative Negative CERNER BJWCH Comment:Testing performed by : [facility], [address], [place] [address] Blood, ur 2+(A) Negative GORAN HELM Comment:Testing performed by : [facility], [address], [place] [address] Urobilinogen, ur <2.0 <2.0 mg/dL GORAN HELM Comment:Testing performed by : [facility], [address], [place] [address] Nitrite, ur Negative Negative GORAN HELM Comment:Testing performed by : [facility], [address], [place] [address] Leukocyte esterase, ur Negative Negative GORAN HELM Comment:Testing performed by : [facility], [address], [place] [address] UA reflex comment Reflex to microscopic UA will be performed. GORAN HELM Comment:Testing performed by : [facility], [address], [place] [address] Urine 05/05/2025 8:30 AM CDT 05/05/2025 9:20 AM CDT Junaid Cifuentes MD PhD LAB URINE ORDERABLES Final Result [facility] [address] Department [place] [address] * (ABNORMAL) Urinalysis, microscopic only (05/05/2025 8:30 AM CDT) WBC, ur 0-5 0 - 5 /HPF Comment:Testing performed by : [facility], [address], [place] [address] RBC, ur 6-10(A) 0 - 2 /HPF GORAN HELM Comment:Testing performed by : [facility], [address], [place] [address] Mucous, ur Present(A) GORAN HELM Comment:Testing performed by : [facility], [address], [place] [address] Urine 05/05/2025 8:30 AM CDT 05/05/2025 9:20 AM CDT Junaid Cifuentes MD PhD LAB URINE ORDERABLES Final Result Performing Organization Address [facility] de Phone Number GORAN YOUSSEF[facility] [address] [address] Campos. Department [place] [address] * eGFR (05/05/2025 8:28 AM CDT) eGFR [...] was last reviewed 2021. Testing performed by: [facility], [address], [place] [address] Blood 05/05/2025 8:28 AM CDT 05/05/2025 8:49 AM CDT us Junaid Cifuentes MD PhD LAB BLOOD ORDERABLES Final Result Performing Organization Address [facility] Co de Phone Number GORAN [facility] [id number] [address] Campos. Department [place] [facility] [place] [address] * (ABNORMAL) Differential, auto (05/05/2025 8:28 AM CDT) Neutrophil abs 5.58 1.50 - 6.50 K/cumm Comment:Testing performed by : [facility], [facility], [address] [place] [address] Imm gran abs 0.03 0.00 - 0.10 K/cumm CERNER BJWCH Comment:Testing performed by : [facility], [facility], [address], [place] [address] Lymphocyte abs 0.47(L) 0.80 - 3.30 K/cumm CERNER BJW[facility] Comment:Testing performed by : [facility], [address] [place] [address] Monocyte abs 0.38 0.20 - 0.80 K/cumm CERNER BJWCH Comment:Testing performed by : [facility], [facility], [address] [place] [address] Eosinophil abs 0.01 0.00 - 0.50 K/cumm CERNER BJWCH Comment:Testing performed by : [facility], [facility], [address] [place] [address] Basophil abs 0.01 0.00 - 0.10 K/cumm CERNER BJWCH Comment:Testing performed by : [facility], [address] [place] [address] Neutrophil pct 85.9 % CERNER BJW[facility] Comment: Interpretive Data Percent cell count reference ranges are not reported, since discordance with absolute values may lead to misinterpretation of CBC data. Current Interpretive Data was last revised on 2017. Testing performed by: [facility], [facility], [address] [place] [address] Imm gran pct 0.5 % CERNER BJW[facility] Comment: Interpretive Data Percent cell count reference ranges are not reported, since discordance with absolute values may lead to misinterpretation of CBC data. Current Interpretive Data was last revised on 2017. Testing performed by: [facility] 2, [address] [place] [address] Lymphocyte pct 7.3 % GORAN HELM Comment: Interpretive Data Percent cell count reference ranges are not reported, since discordance with absolute values may lead to misinterpretation of CBC data. Current Interpretive Data was last revised on 2017. Testing performed by: [facility], [facility], [address] [place] [address] Monocyte pct 5.9 % CERNICHOLE HELM Comment: Interpretive Data Percent cell count reference ranges are not reported, since discordance with absolute values may lead to misinterpretation of CBC data. Current Interpretive Data was last revised on 2017. Testing performed by: [facility], [facility], [address] [place] [address] Eosinophil pct 0.2 % GORAN HELM Comment: Interpretive Data Percent cell count reference ranges are not reported, since discordance with absolute values may lead to misinterpretation of CBC data. Current Interpretive Data was last revised on 2017. Testing performed by: [facility], [facility], [address] [place] [address] Basophil pct 0.2 % GORAN HELM Comment: Interpretive Data Percent cell count reference ranges are not reported, since discordance with absolute values may lead to misinterpretation of CBC data. Current Interpretive Data was last revised on 2017. Testing performed by: [facility], [facility], [address] [place] [address] Blood 05/05/2025 8:28 AM CDT 05/05/2025 8:34 AM CDT us Junaid Cifuentes MD PhD LAB BLOOD ORDERABLES Final Result G[facility]AN [facility]SSEFW[facility] [address] [facility]. Department [place] [address] * CBC with auto differential (05/05/2025 8:28 AM CDT) WBC 6.48 3.80 - 9.90 K/cumm Comment:Testing performed by : [facility], [facility], [address] [place] [address] Hgb 13.5 13.0 - 17.5 g/dL CERNER BJWCH Comment:Testing performed by : [facility], [facility], [address] [place] [address] Hct 40.5 38.9 - 50.3 % CERNER BJWCH Comment:Testing performed by : [facility], [facility], [address] [place] [address] Plt 199 150 - 400 K/cumm CERNER BJWCH Comment:Testing performed by : [place] [address], [address] [place] [address] MPV 10.5 9.1 - 12.3 fL CERNER BJWCH Comment:Testing performed by : [facility], [address], [place] [address] RBC 4.61 4.30 - 5.80 M/cumm CERNER BJWCH Comment:Testing performed by : [facility], [address] [place] [address] MCV 87.9 81.3 - 96.4 fL CERNER BJWCH Comment:Testing performed by : [facility], [address] [place] [address] MCH 29.3 27.1 - 33.3 pg CERNER BJWCH Comment:Testing performed by : [facility] 2, [address] [place] [address] MCHC 33.3 32.3 - 35.7 g/dL CERNER BJWCH Comment:Testing performed by : [facility] 2, [address] [place] [address] RDW CV 12.5 11.1 - 14.9 % CERNER BJWCH Comment:Testing performed by : [facility], [address], [place] [address] RDW SD 40.3 35.7 - 48.1 fL CERNER BJWCH Comment:Testing performed by : [facility], [facility], [address] [place] [address] ANC Prelim 5.58 1.50 - 6.50 K/cumm GORAN HELM Comment: Interpretive Data The rapid ANC is a preliminary automated count and may vary from the final ANC (Neut Abs) reported in the WBC differential that follows. Current interpretive data was last revised 2024. Testing performed by: [facility], [facility], [address] [place] [address] Blood 05/05/2025 8:28 AM CDT 05/05/2025 8:34 AM CDT Junaid Cifuentes MD PhD LAB BLOOD ORDERABLES Final Result Performing Organization Address [facility] de Phone Number [facility] [facility] [address] [facility]. [facility] [place] [address] * Uric acid (05/05/2025 8:28 AM CDT) Uric acid 3.5 3.0 - 8.0 mg/dL Comment:Testing performed by : [facility], [address] [place] [address] Blood 05/05/2025 8:28 AM CDT 05/05/2025 8:49 AM CDT Junaid Cifuentes MD PhD LAB BLOOD ORDERABLES Final Result Performing Organization Address [facility] Co de Phone Number [facility] BJW[facility] [address] [facility]. [facility] [place] [address] * Triglycerides (05/05/2025 8:28 AM CDT) Triglycerides [...] last revised on 2018. Testing performed by: [facility], [address] [place] [address] Blood 05/05/2025 8:28 AM CDT 05/05/2025 8:49 AM CDT us Junaid Cifuentes MD PhD LAB BLOOD ORDERABLES Final Result Performing Organization Address [facility] de Phone Number GORAN YOUSSEFWCH [address] [address]eller. Department [place] [address] * (ABNORMAL) PSA diagnostic (05/05/2025 8:28 AM CDT) PSA-Total 61.58(H) <=6.20 ng/mL Comment: Interpretive Data AGE SEX REFERENCE INTERVAL 0 minutes-150 years Female None 0 minutes-49 years Male None 50-59 years Male 0-3.90 60-69 years Male 0-5.40 70-79 years Male 0-6.20 80-150 years Male 0-6.20 The [employer] PSA Total assay procedure was used. Results from different manufacturers or methods may not be comparable. Serial testing should be performed using the same method. Current interpretive data last revised 22. Testing performed by: [facility], [address] [place] [address] Blood 05/05/2025 8:28 AM CDT 05/05/2025 8:49 AM CDT us Junaid Cifuentes MD PhD LAB BLOOD ORDERABLES Final Result Performing Organization Address [facility] de Phone Number GORAN [facility] [address] [facility] [place] [address] * Phosphorus (05/05/2025 8:28 AM CDT) Pathologist [facility] Phosphorus, pl 3.3 2.3 - 4.5 mg/dL Comment:Testing performed by : [facility], [address] [facility] [place] [address] Blood 05/05/2025 8:28 AM CDT 05/05/2025 8:49 AM CDT us Junaid Cifuentes MD PhD LAB BLOOD ORDERABLES Final Result Performing Organization Address City/[facility]/ZIP Co de Phone Number [facility] [address] [facility] [place] [address] * Lactate dehydrogenase (LD) (05/05/2025 8:28 AM CDT) [facility] Lactate dehydrogenase (LDH) 154 100 - 250 Units/L Comment:Testing performed by : [facility], [address] [place] [address], [place] [address] Blood 05/05/2025 8:28 AM CDT 05/05/2025 8:49 AM CDT us Junaid Cifuentes MD PhD LAB BLOOD ORDERABLES Final Result Performing Organization Address City/[facility]/ZIP Co de Phone Number GORAN [facility] [address] [facility] [place] [address] * (ABNORMAL) Creatine kinase (CK), total (05/05/2025 8:28 AM CDT) Pathologist [facility] CK 28(L) 40 - 300 Units/L Comment:Testing performed by : [facility], [address] [address] [facility] [place] [address] Blood 05/05/2025 8:28 AM CDT 05/05/2025 8:49 AM CDT us Junaid Cifuentes MD PhD LAB BLOOD ORDERABLES Final Result [facility] [address] [address]pos. Department [place] [address] * (ABNORMAL) Comprehensive metabolic panel (05/05/2025 8:28 AM CDT) Sodium 141 135 - 145 mmol/L Comment:Testing performed by : [facility], [address], [place] [address] Potassium, pl 4.0 3.3 - 4.9 mmol/L CERNER BJWCH Comment:Testing performed by : [facility], [address], [place] [address] Chloride 102 97 - 110 mmol/L CERNER BJWCH Comment:Testing performed by : [facility], [address], [place] [address] CO2 28 22 - 32 mmol/L CERNER BJWCH Comment:Testing performed by : [facility], [address], [place] [address] Anion gap 11 2 - 15 mmol/L CERNER BJWCH Comment:Testing performed by : [facility], [address], [place] [address] BUN 18 6 - 25 mg/dL CERNER BJWCH Comment:Testing performed by : [facility], [address], [place] [address] Creatinine 0.70(L) 0.80 - 1.30 mg/dL CERNER BJWCH Comment:Testing performed by : [facility], [address], [place] [address] Glucose 142 70 - 199 mg/dL CERNER [...] was last revised 2022. Testing performed by: [facility], [address], [place] [address] Calcium 9.5 8.5 - 10.3 mg/dL CERNER BJWCH Comment:Testing performed by : [facility], [address], [place] [address] Bilirubin, total 0.3 0.1 - 1.2 mg/dL CERNER BJWCH Comment:Testing performed by : [facility], [address], [place] [address] Protein, pl 6.8 6.5 - 8.5 g/dL CERNER BJWCH Comment:Testing performed by : [facility], [address], [place] [address] Albumin 4.3 3.5 - 5.0 g/dL CERNER BJWCH Comment:Testing performed by : [facility], [address], [place] [address] Alk phos 74 40 - 130 Units/L CERNER BJWCH Comment:Testing performed by : [facility], [address], [place] [address] ALT 16 7 - 55 Units/L CERNER BJWCH Comment:Testing performed by : [facility], [address], [place] [address] AST 22 10 - 50 Units/L CERNER BJWCH Comment:Testing performed by : [facility], [address], [place] [address] Blood 05/05/2025 8:28 AM CDT 05/05/2025 8:49 AM CDT us Junaid Cifuentes MD PhD LAB BLOOD ORDERABLES Final Result G[facility]AN [facility] [address] Department [place] [address] * IR Port Placement Chest > 5 Years (04/28/2025 10:13 AM CDT) Anatomical Region Laterality Modality Chest N/A X-Ray Angiograph y 04/28/2025 10:3 9 AM CDT Impressions 04/28/2025 10:39 AM CDT Successful chest wall port placement. PLAN: The catheter is ready for immediate use. Please note that a power injectable port was placed. When treatment is completed, removal can be scheduled by calling [facility] - [phone] [facility] - [phone] Electronically signed by: Donal Carrillo PA-C Narrative [...] was obtained. Prior to beginning the procedure, Vestal Protocol was used to confirm the patient's [...] was obtained. Prior to beginning the procedure, Vestal Protocol was used to confirm the patient's [...] completed, removal can be scheduled by calling [facility] - [phone] [facility] - [phone] Electronically signed by: Donal Carrillo PA-C Junaid Cifuentes MD PhD IMG IR PROCEDURES Fin al Result from Last 3 Months Insurance [place] [address] MEDICARE [employer] MEDICARE [employer] Care Teams Process Controls Technician Relationship Specialty Start Date End Date Arvind Castellanos MD PCP - General 12/24/17 Patrick Perez MD [address] [place] [address] Urology 07/27/21
--- OUTSIDE RECORDS SUMMARY | 2025-07-27 20:47 | XMS_ITS | Clinical Summary ---
Author Organization [facility] Address [address] [place] [address] Phone Care Team Providers Care Parts Sales Advisor Name Role Phone Arvind Castellanos MD Primary Care Provider [phone] Allergies Active Allergy Reactions Criticality Noted Date [...] Data STL ABSTRACTION Provider, Abstract 06/11/2025 Telephone [facility] Heart [facility] Vascular - [address] [facility] [address] [address] [facility] [address] [place] [address] Franc Wyman MD Needs Appointment 06/10/2025 3:58 PM CDT - 06/10/2025 5:11 PM CDT Surgery [facility] Operating Room [address] [place] [address] Jessie Posada MD CYSTO CLOT EVACUATION BIPOLAR BLADDER FULGURATION AND URETHRAL DILATION 06/10/2025 3:42 PM CDT Anesthesia Event [facility] [address] [place] [address] Aliyah Bone MD Fitzer, Julia N, AA 06/09/2025 External Device Data STL ABSTRACTION Provider, Abstract 06/08/2025 External Device Data STL ABSTRACTION Provider, Abstract 06/08/2025 External Device Data STL ABSTRACTION Provider, Abstract 06/04/2025 4:42 AM CDT - 06/11/2025 11:47 AM CDT Hospital Encounter [facility] Cardi[facility] Progressive Care unit [address] [place] [address] Marco Antonio Gallego MD Amin, Birju V., [...] FUNCTION PANEL Routine 06/11/2025 4:50 AM CDT [place] CYSTO W/DESTRUCTION OF LESIONS 06/10/2025 3:58 PM [...] - 9.8 K/uL 06/11/2025 5:02 AM CDT [facility] RBC 4.18(L) 4.50 - 5.40 M/uL 06/11/2025 5:02 AM CDT [facility] HEMOGLOBIN 12.5(L) 13.6 - 16.5 g/dL 06/11/2025 5:02 AM CDT [facility] HEMATOCRIT 36.3(L) 40.0 - 48.0 % 06/11/2025 5:02 AM CDT [facility] MCV 86.8 82.0 - 99.0 fL 06/11/2025 5:02 AM CDT [facility] MCH 29.9 27.2 - 32.6 pg 06/11/2025 5:02 AM CDT [facility] MCHC 34.4 31.5 - 35.5 g/dL 06/11/2025 5:02 AM CDT [facility] PLATELETS 313 140 - 350 K/uL 06/11/2025 5:02 AM CDT [facility] MPV 10.7 9.3 - 12.4 fL 06/11/2025 5:02 AM CDT [facility] RDW 12.5 11.5 - 14.5 % 06/11/2025 5:02 AM CDT [facility] RDW-STDEV 39.7 37.1 - 48.7 fL 06/11/2025 5:02 AM CDT [facility] Blood Venipuncture / Unknown 06/11/2025 4:50 AM CDT 06/11/2025 4:52 AM CDT Andrez Cerf Cyndee DO HEMATOLOGY ORDERABLES F inal Result Performing Organization Address City/[facility]/ZIP Co de Phone Number [facility] CLIA# [id number] [place] [address] * MAGNESIUM LEVEL (06/11/2025 4:50 AM CDT) Only the most recent of5 resultswithin the time period is included. MAGNESIUM 1.7 1.6 - 2.6 mg/dL 06/11/2025 5:26 AM CDT [facility] Blood Venipuncture / Unknown 06/11/2025 4:50 AM CDT 06/11/2025 4:52 AM CDT Andrez Cerf Cyndee DO CHEMISTRY ORDERABLES Fi nal Result Performing Organization Address City/[facility]/ZIP Co de Phone Number [facility] CLIA# [id number] [place] [address] * (ABNORMAL) RENAL FUNCTION PANEL (06/11/2025 4:50 AM CDT) Only the most recent of4 resultswithin the time period is included. SODIUM 142 136 - 145 mmol/L 06/11/2025 5:26 AM T [facility] POTASSIUM 4.3 3.4 - 5.1 mmol/L 06/11/2025 5:26 AM [facility] CHLORIDE 104 98 - 107 mmol/L 06/11/2025 5:26 AM [facility] CO2 28 22 - 29 mmol/L 06/11/2025 5:26 AM [facility] CALCIUM 9.1 8.6 - 10.4 mg/dL 06/11/2025 5:26 AM [facility] BUN 24(H) 6 - 20 mg/dL 06/11/2025 5:26 AM [facility] CREATININE 0.79 0.67 - 1.17 mg/dL 06/11/2025 5:26 AM [facility] Comment:The GFR result is no t clinically significant on patients <18 or >70 years of age. GLUCOSE 135(H) 74 - 99 mg/dL 06/11/2025 5:26 AM [facility] ALBUMIN 3.5 3.5 - 5.2 g/dL 06/11/2025 5:26 AM [facility] PHOSPHORUS 3.4 2.5 - 4.5 mg/dL 06/11/2025 5:26 AM [facility] GFR >60 mL/min/1.7 3 sq meter 06/11/2025 5:26 AM [facility] Comment:eGFR calculated with 2020 CKD-EPI equation. Vegetarian diet, extremely high or low muscle mass, and may affect results. Cystatin C with Glomerular Filtration Rate is a suitable alternative for these patients. ANION GAP 10 8 - 16 mmol/L 06/11/2025 5:26 AM [facility] Blood Venipuncture / Unknown 06/11/2025 4:50 AM CDT 06/11/2025 4:52 AM CDT Andrez Cotter DO CHEMISTRY ORDERABLES Fi nal Result Performing Organization Address [facility]/ZIP Co de Phone Number [facility] [place]# [id number] [place] [address] * TYPE AND SCREEN (06/10/2025 5:24 AM CDT) Only the most recent of2 resultswithin the time period is included. ABO GROUP B 06/10/2025 6:31 AM CDT [facility] RH (D) TYPE Positive 06/10/2025 6:31 AM CDT [facility] ANTIBODY SCREEN Negative 06/10/2025 6:31 AM CDT [facility] Blood Venipuncture / Unknown 06/10/2025 5:24 AM CDT 06/10/2025 5:37 AM CDT Nicholas Wall MD BLOOD BANK ORDERABLES Edited Res ult - Final Performing Organization Address [facility] Co de Phone Number [facility]# [id number] [place] [address] * URINE CULTURE (06/09/2025 6:36 PM CDT) Only the most recent of2 resultswithin the time period is included. CULTURE No growth at 24 hours 06/11/2025 8:02 AM CDT [facility] Urine URINE SPECIMEN OBTAINED BY CLEAN CATCH PROCEDURE / Unknown Collection / Unknown 06/09/2025 6:36 PM CDT 06/09/2025 8:10 PM CDT Selwyn Valencia DNP MICROBIOLOGY - GENERAL ORDERABLES Final Result Performing Organization Address City/[facility]/ZIP Co de Phone Number [facility]# [id number] [place] [address] * UNFRACTIONATED HEPARIN MONITORING (06/09/2025 6:53 AM CDT) [facility] ANTI-XA UNFRAC HEP <0.10 See Interpreta tion. IU/mL 06/09/2025 7:36 AM CDT [facility] Blood Venipuncture / Unknown 06/09/2025 6:53 AM CDT 06/09/2025 7:09 AM CDT Narrative [facility] - 06/09/2025 7:36 AM CDT Unfractionated Heparin Therapeutic Range: 0.30-0.70 IU/ml Refer to pharmacy adult heparin protocol for further recommendation. The reference range for this test is specific to the anticoagulant and is not appropriate for monitoring patients on a DOAC protocol. us Ulices Rizo NP HEMATOLOGY ORDERABLES Final Res ult [facility] CLIA# [id number] [address] [place] [address] * PTT (06/09/2025 6:53 AM CDT) [facility] PTT 26.5 23.1 - 37.1 seconds 06/09/2025 7:36 AM CDT [facility] Blood Venipuncture / Unknown 06/09/2025 6:53 AM CDT 06/09/2025 7:09 AM CDT us Ulices Rizo NP HEMATOLOGY ORDERABLES Final Res ult [facility] CLIA# [id number] [address] [place] [address] * (ABNORMAL) TROPONIN (06/09/2025 5:15 AM CDT) Only the most recent of2 resultswithin the time period is included. [facility] TROPONIN T, 5TH GEN 271(HH) <=15 ng/L 06/09/2025 6:22 AM CDT [facility] Blood Venipuncture / Unknown 06/09/2025 5:15 AM CDT 06/09/2025 5:29 AM CDT Narrative [facility] - 06/09/2025 6:22 AM CDT Troponin elevated. Andrez Cotter DO CHEMISTRY ORDERABLES Fi nal Result [facility] CLIA# [id number] [address] [place] [address] * EXTRA TUBE (URINE LÓPEZ) (06/08/2025 4:25 PM CDT) Only the most recent of2 resultswithin the time period is included. Urine URINE SPECIMEN OBTAINED BY CLEAN CATCH PROCEDURE / Unknown Collection / Unknown 06/08/2025 4:25 PM CDT 06/08/2025 4:41 PM CDT Andrez Cotter DO URINE ORDERABLES Final Result Performing Organization Address [facility] Co de Phone Number [facility] CLIA# [id number] [place] [address] * STREPTOCOCCUS PNEUMONIAE ANTIGEN (06/08/2025 4:25 PM CDT) [facility] STREPTOCOCCUS PNEUMONIAE AG NOT DETECTED Not Detected 06/08/2025 9:44 PM CDT [facility] Urine URINE SPECIMEN OBTAINED BY CLEAN CATCH PROCEDURE / Unknown Collection / Unknown 06/08/2025 4:25 PM CDT 06/08/2025 4:40 PM CDT Selwyn Valencia [facility] MICROBIOLOGY - GENERAL ORDERABLES Final Result Performing Organization Address City/[facility]/ZIP Co de Phone Number [facility] CLIA# [id number] [address] [facility] [address] * SODIUM, RANDOM URINE (06/08/2025 4:25 PM CDT) Only the most recent of2 resultswithin the time period is included. SODIUM, URINE 89 mmol/L 06/08/2025 5:20 PM CDT [facility] Comment:Reference range not established Urine URINE SPECIMEN OBTAINED BY CLEAN CATCH PROCEDURE / Unknown Collection / Unknown 06/08/2025 4:25 PM CDT 06/08/2025 4:41 PM CDT [facility] Cyndee DO URINE ORDERABLES Final Result Performing Organization Address [facility]/ZIP Co de Phone Number [facility] [place] [place]# [id number] [address] [place] [address] * CREATININE, RANDOM URINE (06/08/2025 4:25 PM CDT) Only the most recent of2 resultswithin the time period is included. CREATININE, URINE 87.6 40.0 - 278.0 mg/dL 06/08/2025 5:20 PM CDT [facility] Comment:Reference Range vari es with fluid intake and diet. Urine URINE SPECIMEN OBTAINED BY CLEAN CATCH PROCEDURE / Unknown Collection / Unknown 06/08/2025 4:25 PM CDT 06/08/2025 4:41 PM CDT Andrez [employer] Cyndee DO URINE ORDERABLES Final Result Performing Organization Address City/[facility]/ZIP Co de Phone Number [facility] [place] [place]# [id number] [place] [address] * (ABNORMAL) URINALYSIS WITH REFLEX MICROSCOPIC (06/08/2025 4:25 PM CDT) Only the most recent of2 resultswithin the time period is included. COLOR UA Claudette(A) Pale to Dark Yellow 06/08/2025 4:56 PM CDT [facility] CLARITY UA Cloudy(A) Clear 06/08/2025 4:56 PM CDT [facility] SPECIFIC GRAVITY UA 1.013 1.003 - 1.035 06/08/2025 4:56 PM CDT [facility] PH UA 6.0 5.0 - 8.0 06/08/2025 4:56 PM CDT [facility] LEUKOCYTE ESTERASE UA Negative Negative 06/08/2025 4:56 PM CDT [facility] NITRITE UA Negative Negative 06/08/2025 4:56 PM CDT [facility] PROTEIN UA 2+(A) Negative 06/08/2025 4:56 PM CDT [facility] GLUCOSE UA 1+(A) Negative 06/08/2025 4:56 PM CDT [facility] KETONES UA 1+(A) Negative 06/08/2025 4:56 PM CDT [facility] UROBILINOGEN UA Normal <2.0 mg/dL 4:56 PM CDT [facility] BILIRUBIN UA Negative Negative 06/08/2025 4:56 PM CDT [facility] BLOOD UA 2+(A) Negative 06/08/2025 4:56 PM CDT [facility] WBC UA >100(A) 0 - 2 /hpf 06/08/2025 4:56 PM CDT [facility] RBC UA >100(A) 0 - 2 /hpf 06/08/2025 4:56 PM CDT [facility] BACTERIA UA 2+(A) Negative /hpf 06/08/2025 4:56 PM CDT [facility] EPITHELIAL CELLS, URINE 0-5 0 - 5 /hpf 06/08/2025 4:56 PM CDT [facility] HYALINE CAST None Seen None Seen, 0-2 /lpf 06/08/2025 4:56 PM CDT [facility] Urine URINE SPECIMEN OBTAINED BY CLEAN CATCH PROCEDURE / Unknown Collection / Unknown 06/08/2025 4:25 PM CDT 06/08/2025 4:41 PM CDT [facility] Montserrat Cotter DO URINE ORDERABLES Final Result [facility] [employer] [facility] CLIA# [id number] [address] [place] [address] * US RENAL AND BLADDER (06/08/2025 11:21 AM CDT) Anatomical Region Laterality Modality Abdomen Ultrasound 06/08/2025 11:2 1 AM CDT Impressions 06/08/2025 11:33 AM CDT IMPRESSION: 1. Pedunculated soft tissue mass within the bladder concerning for neoplasm. Direct visualization and/or tissue sampling is recommended for further evaluation. 2. Prominence of the right greater than left renal pelvis. DICTATION LOCATION: Location 7 - [facility] Narrative 06/08/2025 11:33 AM CDT EXAMINATION: [...] 527(HH) <=15 ng/L 06/08/2025 6:44 AM CDT [facility] [employer] [facility] DELTA 6HR TROPONIN T % 206(HH) See Interp. % 06/08/2025 6:44 AM CDT [facility] [employer] [facility] Blood Venipuncture / Unknown 06/08/2025 5:48 AM CDT 06/08/2025 6:12 AM CDT Narrative [facility] - 06/08/2025 6:44 AM CDT Troponin elevated. Delay in collection of timed specimen beyond recommended collection interval. Results must be interpreted in clinical context. Delta significant change. Francisco Guerra PA-C CHEMISTRY ORDERABLES Final Result [facility] CLIA# [id number] [address] [place] [address] * (ABNORMAL) CBC WITH DIFFERENTIAL (06/08/2025 5:48 AM CDT) Only the most recent of5 resultswithin the time period is included. WBC 6.5 4.0 - 9.8 K/uL 06/08/2025 6:15 AM CDT [facility] RBC 3.85(L) 4.50 - 5.40 M/uL 06/08/2025 6:15 AM CDT [facility] HEMOGLOBIN 11.2(L) 13.6 - 16.5 g/dL 06/08/2025 6:15 AM CDT [facility] HEMATOCRIT 32.7(L) 40.0 - 48.0 % 06/08/2025 6:15 AM CDT [facility] MCV 84.9 82.0 - 99.0 fL 06/08/2025 6:15 AM CDT [facility] MCH 29.1 27.2 - 32.6 pg 06/08/2025 6:15 AM CDT [facility] MCHC 34.3 31.5 - 35.5 g/dL 06/08/2025 6:15 AM CDT [facility] RDW 12.3 11.5 - 14.5 % 06/08/2025 6:15 AM CDT [facility] RDW-STDEV 37.2 37.1 - 48.7 fL 06/08/2025 6:15 AM CDT [facility] PLATELETS 184 140 - 350 K/uL 06/08/2025 6:15 AM CDT [facility] MPV 10.9 9.3 - 12.4 fL 06/08/2025 6:15 AM CDT [facility] NEUTROPHILS 79 % 06/08/2025 6:15 AM CDT [facility] LYMPHOCYTES 4 % 06/08/2025 6:15 AM CDT [facility] MONOCYTES 15 % 06/08/2025 6:15 AM CDT [facility] EOSINOPHILS 0 % 06/08/2025 6:15 AM CDT [facility] BASOPHILS 0 % 06/08/2025 6:15 AM CDT [facility] IMMATURE GRANULOCYTES 1 % 06/08/2025 6:15 AM CDT [facility] Comment:IG (Immature Granulo cyte) count includes Metamyelocytes, Myelocytes, and Promyelocytes NEUTROPHIL ABSOLUTE 5.16 1.90 - 7.00 K/uL 06/08/2025 6:15 AM CDT [facility] LYMPHOCYTE ABSOLUTE 0.25(L) 0.70 - 4.50 K/uL 06/08/2025 6:15 AM CDT [facility] MONOCYTE ABSOLUTE 1.00 0.10 - 1.30 K/uL 06/08/2025 6:15 AM CDT [facility] EOSINOPHIL ABSOLUTE 0.00 0.00 - 0.70 K/uL 06/08/2025 6:15 AM CDT [facility] BASOPHILS ABSOLUTE 0.02 0.00 - 0.20 K/uL 06/08/2025 6:15 AM CDT [facility] IMMATURE GRANULOCYTES ABSOLUTE 0.08(H) 0.00 - 0.03 K/uL 06/08/2025 6:15 AM T [facility] Blood Venipuncture / Unknown 06/08/2025 5:48 AM CDT 06/08/2025 6:11 AM CDT Andrez Cotter DO HEMATOLOGY ORDERABLES F inal Result [facility] CLIA# [id number] [place] [address] * (ABNORMAL) TROPONIN 2 HR, 5TH GEN (06/07/2025 9:14 PM CDT) TROPONIN T, 2 HR 5TH GEN 186(HH) <=15 ng/L 06/07/2025 10:06 PM CDT [facility] [employer] [facility] Blood Venipuncture / Unknown 06/07/2025 9:14 PM CDT 06/07/2025 9:33 PM CDT Narrative [facility] [employer] [facility] - 06/07/2025 10:06 PM CDT Troponin elevated. Delay in collection of timed specimen beyond recommended collection interval. Results must be interpreted in clinical context. Unable to calculate delta. IQR Consulting PA-C CHEMISTRY ORDERABLES Final Result [facility] [place]# [id number] [place] [address] * (ABNORMAL) TROPONIN BASELINE, 5TH GEN (06/07/2025 8:55 PM CDT) TROPONIN T, BASELINE 5TH GEN 172(HH) <=15 ng/L 06/07/2025 10:05 PM CDT [facility] [employer] [facility] Blood Venipuncture / Unknown 06/07/2025 8:55 PM CDT 06/07/2025 9:33 PM CDT Narrative [facility] [employer] [facility] - 06/07/2025 10:05 PM CDT Troponin elevated. DOOMOROel PA-C CHEMISTRY ORDERABLES Final Result [facility] [employer] [facility]# [id number] [address] [place] [address] * (ABNORMAL) HEMOGLOBIN AND HEMATOCRIT (06/07/2025 8:55 PM CDT) Only the most recent of2 resultswithin the time period is included. [facility] HEMOGLOBIN 11.6(L) 13.6 - 16.5 g/dL 06/07/2025 9:35 PM CDT [facility] HEMATOCRIT 33.5(L) 40.0 - 48.0 % 06/07/2025 9:35 PM CDT [facility] Blood Venipuncture / Unknown 06/07/2025 8:55 PM CDT 06/07/2025 9:34 PM CDT Francisco Guerra PA-C HEMATOLOGY ORDERABLES Final Result [facility] CLIA# [id number] [place] [address] * (ABNORMAL) BASIC METABOLIC PANEL (06/07/2025 8:55 PM CDT) Only the most recent of2 resultswithin the time period is included. [facility] SODIUM 142 136 - 145 mmol/L 06/07/2025 10:02 PM CDT [facility] POTASSIUM 3.3(L) 3.4 - 5.1 mmol/L 06/07/2025 10:02 PM CDT [facility] CHLORIDE 106 98 - 107 mmol/L 06/07/2025 10:02 PM CDT [facility] CO2 22 22 - 29 mmol/L 06/07/2025 10:02 PM CDT [facility] CALCIUM 9.2 8.6 - 10.4 mg/dL 06/07/2025 10:02 PM CDT [facility] BUN 18 6 - 20 mg/dL 06/07/2025 10:02 PM CDT [facility] CREATININE 1.17 0.67 - 1.17 mg/dL 06/07/2025 10:02 PM CDT [facility] Comment:The GFR result is no t clinically significant on patients <18 or >70 years of age. GLUCOSE 123(H) 74 - 99 mg/dL 06/07/2025 10:02 PM CDT [facility] GFR >60 mL/min/1.7 3 sq meter 06/07/2025 10:02 PM CDT [facility] Comment:eGFR calculated with 2020 CKD-EPI equation. Vegetarian diet, extremely high or low muscle mass, and may affect results. Cystatin C with Glomerular Filtration Rate is a suitable alternative for these patients. ANION GAP 14 8 - 16 mmol/L 06/07/2025 10:02 PM CDT [facility] Blood Venipuncture / Unknown 06/07/2025 8:55 PM CDT 06/07/2025 9:33 PM CDT Francisco Guerra PA-C CHEMISTRY ORDERABLES Final Result [facility] CLIA# [id number] [address] [place] [address] * EKG 12-LEAD (06/07/2025 7:56 PM CDT) Only the most recent of2 resultswithin the time period is included. 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 : 1955 Requested By: MARCO ANTONIO PAEZ Order Number: [id number] Reading MD: Nadir Michaels Measurements Intervals [place] Rate: 75 P: 80 TN: 168 QRS: 115 QRSD: 142 T: 74 QT: 386 QTc: 431 Interpretive Statements Sinus rhythm with premature atrial complexes Right bundle branch block Abnormal ECG Compared to ECG 06/04/2025 07:27:46 Atrial premature complex(es) now present Electronically Signed On 06-08-2025 6:48:36 CDT by Nadir Michaels Procedure Note Provider, Historical - 06/08/[address] [address] Test Date: 2025-06-07 Pat Name: MAYANK JENKINS Department: 96 Room: [address] [place] [address] Gender: M 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 : 1955 Requested By: MARCO ANTONIO PAEZ Order Number: [id number] Reading MD: Nadir Michaels Measurements Intervals [place] Rate: 75 P: 80 TN: 168 QRS: 115 QRSD: 142 T: 74 [...] - 145 mmol/L 06/06/2025 7:10 AM CDT [facility] - [facility] POTASSIUM 3.1(L) 3.4 - 5.1 mmol/L 06/06/2025 7:10 AM CDT [facility] CHLORIDE 107 98 - 107 mmol/L 06/06/2025 7:10 AM CDT [facility] CO2 24 22 - 29 mmol/L 06/06/2025 7:10 AM CDT [facility] CALCIUM 9.1 8.6 - 10.4 mg/dL 06/06/2025 7:10 AM CDT [facility] BUN 14 6 - 20 mg/dL 06/06/2025 7:10 AM [facility] CREATININE 0.76 0.67 - 1.17 mg/dL 06/06/2025 7:10 AM [facility] Comment:The GFR result is no t clinically significant on patients <18 or >70 years of age. GLUCOSE 107(H) 74 - 99 mg/dL 06/06/2025 7:10 AM [facility] TOTAL PROTEIN 6.4 6.3 - 8.7 g/dL 06/06/2025 7:10 AM [facility] ALBUMIN 3.7 3.5 - 5.2 g/dL 06/06/2025 7:10 AM [facility] BILIRUBIN TOTAL 0.9 0.0 - 1.1 mg/dL 06/06/2025 7:10 AM [facility] ALKALINE PHOSPHATASE 47 40 - 150 U/L 06/06/2025 7:10 AM [facility] AST 29 0 - 41 U/L 06/06/2025 7:10 AM [facility] ALT 8 0 - 41 U/L 06/06/2025 7:10 AM [facility] GFR >60 mL/min/1.7 3 sq meter 06/06/2025 7:10 AM [facility] Comment:eGFR calculated with 2020 CKD-EPI equation. Vegetarian diet, extremely high or low muscle mass, and may affect results. Cystatin C with Glomerular Filtration Rate is a suitable alternative for these patients. ANION GAP 13 8 - 16 mmol/L 06/06/2025 7:10 AM [facility] Blood Venipuncture / Unknown 06/06/2025 5:30 AM CDT 06/06/2025 5:38 AM CDT us Orly Hernández DO CHEMISTRY ORDERABLES Final Resu lt [facility] CLIA# [id number] [place] [address] * LEGIONELLA ANTIGEN, URINE (06/05/2025 5:27 PM CDT) [facility] LEGIONELLA AG, URINE NOT DETECTED Not Detected 06/06/2025 2:49 PM CDT [facility] Urine URINE SPECIMEN OBTAINED BY CLEAN CATCH PROCEDURE / Unknown Collection / Unknown 06/05/2025 5:27 PM CDT 06/05/2025 9:20 PM CDT [facility] - 06/06/2025 2:49 PM CDT This test [...] [facility] MICROBIOLOGY - GENERAL ORDERABLES Final Result [facility]# [id number] [address] [place] [address] * RESPIRATORY PATHOGEN PCR PANEL (06/05/2025 11:35 AM CDT) [facility] Respiratory Pathogen PCR Panel NOT DETECTED No respiratory pathogen nucleic acids detected. 06/05/2025 12:40 PM CDT [facility] COVID-19 PCR NOT DETECTED Not Detected 06/05/2025 12:40 PM CDT [facility] Upper Respiratory ENTIRE NASOPHARYNX / Unknown Collection / Unknown 06/05/2025 11:35 AM CDT 06/05/2025 11:46 AM CDT [facility] - 06/05/2025 12:40 PM CDT The Film [...] GENERAL ORDERABLES Final Result Performing Organization Address City/[facility]/ZIP Co de Phone Number [facility] [place]# [id number] [address] [place] [address] * PROTIME-INR (06/05/2025 5:43 AM CDT) PROTIME 14.7 11.5 - 14.7 Seconds 06/05/2025 6:57 AM CDT [facility] INR 1.1 0.9 - 1.1 06/05/2025 6:57 AM CDT [facility] Blood Venipuncture / Unknown 06/05/2025 5:43 AM CDT 06/05/2025 6:26 AM CDT Genaro Mclean DO HEMATOLOGY ORDERABL ES Final Result Performing Organization Address [facility] Co de Phone Number [facility]# [id number] [place] [address] * (ABNORMAL) PROCALCITONIN (06/05/2025 3:30 AM CDT) PROCALCITONIN 1.10(H) <=0.25 ng/mL 06/05/2025 10:42 AM CDT [facility] Blood Venipuncture / Unknown 06/05/2025 3:30 AM CDT 06/05/2025 3:37 AM CDT Narrative [facility] - 06/05/2025 10:42 AM CDT The [...] [facility] CHEMISTRY ORDERABLES [facility] Result [facility] [place] [place]# [id number] [address] [place] [address] * (ABNORMAL) MANUAL DIFFERENTIAL (06/05/2025 3:30 AM CDT) Only the most recent of3 resultswithin the time period is included. ADJUSTED WBC 1.3 K/uL 06/05/2025 4:30 AM CDT [facility] NRBC PER 100 WBC 1(H) <=0 /100 WBC 06/05/2025 4:30 AM CDT [facility] SEGMENTED NEUTROPHILS 28 % 06/05/2025 4:30 AM CDT [facility] LYMPHOCYTES RELATIVE 58(H) 43 - 53 % 06/05/2025 4:30 AM CDT [facility] MONOCYTES RELATIVE 11 % 2024 4:30 AM CDT [facility] BASOPHILS RELATIVE 2 % 2024 4:30 AM CDT [facility] METAMYELOCYTES RELATIVE 1(H) <=0 % 06/05/2025 4:30 AM CDT [facility] NEUTROPHILS ABSOLUTE COUNT 0.37(LL) 1.90 - 7.00 K/uL 06/05/2025 4:30 AM CDT [facility] LYMPHOCYTES ABSOLUTE 0.76 0.70 - 4.50 K/uL 06/05/2025 4:30 AM CDT [facility] MONOCYTES ABSOLUTE 0.14 0.10 - 1.30 K/uL 06/05/2025 4:30 AM CDT [facility] BASOPHILS ABSOLUTE 0.02 0.00 - 0.20 K/uL 06/05/2025 4:30 AM CDT [facility] TOTAL CELLS COUNTED IN DIFF 110 06/05/2025 4:30 AM CDT [facility] RBC MORPHOLOGY abnormal 06/05/2025 4:30 AM CDT [facility] PLATELET EST. Adequate 06/05/2025 4:30 AM CDT [facility] ANISOCYTOSIS 1+ /hpf 06/05/2025 4:30 AM CDT [facility] POIKILOCYTES 2+ /hpf 06/05/2025 4:30 AM CDT [facility] SMUDGE CELLS Present /100 06/05/2025 4:30 AM CDT [facility] Blood Venipuncture / Unknown 06/05/2025 3:30 AM CDT 06/05/2025 3:40 AM CDT us Orly Hernández DO HEMATOLOGY ORDERABLES COM Final Result [facility] CLIA# [id number] [address] [place] [address] * (ABNORMAL) C-REACTIVE PROTEIN (06/05/2025 3:30 AM CDT) CRP 149.0(H) <5.0 mg/L 06/05/2025 10:11 AM CDT [facility] Blood Venipuncture / Unknown 06/05/2025 3:30 AM CDT 06/05/2025 3:37 AM CDT us Selwyn [place] DNP CHEMISTRY ORDERABLES Fi nal Result [facility] CLIA# [id number] [address] [place] [address] * CT CHEST ABDOMEN PELVIS W CONT [...] as above. DICTATION LOCATION: Location 7 - [facility] Narrative 06/04/2025 7:45 PM CDT EXAM: [...] CULTURE No growth 06/10/2025 4:26 AM CDT [facility] Blood (Peripheral) Venipuncture / Unknown 06/04/2025 4:21 PM CDT 06/04/2025 5:01 PM CDT Orly Hernández DO MICROBIOLOGY - GENERAL ORDERABL ES Final Result [facility] [id number] [address] [facility] [place] [address] * ECHO COMPLETE - CONTRAST AND STRAIN IF INDICATED (06/04/2025 12:10 PM CDT) EJECTION FRACTION 64 INTERFACE SYSTEM 06/04/2025 11:4 1 AM CDT Narrative INTERFACE SYSTEM - 06/04/2025 12:14 PM CDT Transthoracic Echocardiogram Patient: Mayank Jenkins Study ID: [id number] Gender: M : 1955 Age: 70 Race: RAMON Height 180.3cm Study Date: 06/04/2025 Weight: 56.4kg Access. #: [id number] BP: 127 / 65 *Referring Physician:* Orly Hernández V. *Ordering Physician:* Orly Hernández V. *Yard Clerk:Susan Orozco RDCS ssrs developer: Nurse: Indications: High BNP. History: PMH: No [...] values inside specified reference range. Procedure data: [facility] No prior study was available [...] Prepared and Electronically Authenticated He Valle M.D. [id number]:20 Procedure Note He Valle MD - 06/04/2025 Transthoracic Echocardiogram Patient: Mayank Jenkins Study ID: [id number] Gender: M : 1955 Age: 70 Race: RAMON Height 180.3cm Study Date: 06/04/2025 Weight: 56.4kg Access. #: [id number] BP: 127 / 65 *Referring Physician:* Orly Hernández V. *Ordering Physician:* Orly Hernández V. *Yard Clerk:* Erika Orozco [facility] ssrs developer: Nurse: Indications: High BNP. History: PMH: No [...] values inside specified reference range. Procedure data: [facility] No prior study was available [...] Prepared and Electronically Authenticated He Valle M.D. [id number]:20 us Orly Hernández DO US ORDERABLES Final Result Performing Organization Address City/[facility]/ZIP Co de Phone Number INTERFACE SYSTEM Refer to clinic/hospital department * LACTIC ACID (06/04/2025 7:05 AM CDT) LACTIC ACID 1.0 <=2.0 mmol/L 06/04/2025 7:51 AM CDT [facility] Blood Venipuncture / Unknown 06/04/2025 7:05 AM CDT 06/04/2025 7:23 AM CDT us Orly Hernández DO CHEMISTRY ORDERABLES Final Resu lt Performing Organization Address [facility] Co de Phone Number [facility] CLIA# [id number] [place] [address] * XR PRIOR STUDY (06/03/2025 7:35 PM CDT) Narrative [facility] - 06/04/2025 4:17 PM CDT This exam was auto finalized to allow images to be scanned to PACS. External Provider [facility] DIAGNOSTIC IMAGING ORDERA BLES Final Result Performing Organization Address [facility] Co de Phone Number [facility] CLIA # [id number] [place] [address] from Last 3 Months Insurance MEDICARE PART [facility] B [facility] Medicare Part D RX [employer] (INTERNAL) [facility] Internal Plans Advance Directives For more information, please contact: [phone] * Full Code (Latest Code Status on File) Date Activated Date Inactivated Comments 06/04/2025 7:59 AM 06/11/2025 1:57 PM Care Teams Parts Sales Advisor Relationship Specialty Start Date End Date Arvind Castellanos MD [address] [place] [address] PCP - General Internal Medicine 06/04/25
[2025-07-27 20:54] VITALS: BMI 17.8
[2025-07-27] MEDS: PROCHLORPERAZINE MALEATE 5 MG TABLET 10 MG PO (22:06)
[2025-07-27] MEDS: HYDROcodone/acetaminophen (*CRX) 7.5-325 MG TABLET 1 TAB PO (22:06)
--- NOTE | 2025-07-27 22:32 | ADMGEN ---
This patient, Mayank Collazo, was admitted to 2nd Floor Room 205-1. Patient/family oriented to hospital policies and general routines including ID bracelet, bed and alarms, visiting hours, pain management, procedures, bathroom and other care routines, personal items, smoking policy, room service/diet, and visiting hours. Information on how to activate the Rapid Response Team has been discussed. Patient/Family are encouraged to report perceived risks to care and to ask questions if they do not understand what they are told or what they should do.
[2025-07-27 22:38] VITALS: BP 132/76; PULSE 70; RESP 20; TEMP 36.8; O2SAT 95
[2025-07-27 23:59] VITALS: BP 133/65; PULSE 70; RESP 16; TEMP 36.3; O2SAT 97
[2025-07-28 08:00] VITALS: BP 105/54; PULSE 72; RESP 18; TEMP 36.6; O2SAT 95
[2025-07-28] MEDS: HYDROcodone/acetaminophen (*CRX) 7.5-325 MG TABLET 1 TAB PO ×3 (10:01→21:17)
[2025-07-28 10:02] VITALS: PULSE 78
[2025-07-28] MEDS: SOLIFENACIN 5 MG TABLET PO (10:02)
[2025-07-28] MEDS: METOPROLOL SUCCINATE EXT REL 25 MG TABCR PO (10:02)
[2025-07-28] MEDS: PANTOPRAZOLE 40 MG TABLET PO ×2 (10:03→21:18)
[2025-07-28] MEDS: PROCHLORPERAZINE MALEATE 5 MG TABLET 10 MG PO ×2 (10:04→21:18)
[2025-07-28] MEDS: LORATADINE 10 MG TABLET PO (10:04)
--- NOTE | 2025-07-28 14:40 | P.HP_ITS ---
H&P: HPI History of Present Illness Date/Time: 07/28/25 14:40 Chief Complaint: Hip pain fall Narrative: Patient with past medical HX with current treatment for prostate cancer, vitamin-D deficiency, and HTN is a a 70-year-old male who was a direct admission for [facility] for continued physical and occupational therapy following a fall on 07/22/2025 initially where he was diagnosed with bilateral distal radial fractures, patient had a splint placed and was sent back home to follow-up with orthopedics as an outpatient basis. Patient then came back to the hospital on 07/23 due to inability to bear weight with x-ray showing no acute fracture however MRI was completed which showed a stable superior and inferior nondisplaced pubic rami fracture which explains his left hip groin pain that may not require intervention. Orthopedics recommend weight-bearing as tolerated. Patient was then transferred to [facility] for continued strength and endurance training. Patient evaluated in no acute distress at time of assessment up in chair denied CP, SOB , N/V and pain controlled at this time Review of Systems Review of Systems: All systems reviewed & are unremarkable except as noted in HPI and below PMFSH Past Medical History Medical History Vitamin D deficiency HTN (hypertension) Colles' fracture of left radius, initial encounter for closed fracture Family History Family History Other Family history of cardiovascular disease Family history of malignant neoplasm Hypertension Social History Social History Smoking status: Never smoker Smokeless tobacco user: other Second hand tobacco smoke exposure: Yes Additional smoking assessment comments: Marijuana Alcohol intake: never Substance use: never Substance use type: marijuana Other substance usage details: Daily Last use: 07/20/2025 Lack of Transportation: No Lack of Food: Never True Current Housing: I Have Housing Concerned About Future Housing: No Difficulty Paying Gas/Electric Bills: No Difficulty Paying for Meds: No Currently Unemployed: No Education: High School Diploma/GED Difficulty w/ Childcare or Family Care: No Living arrangements: with family Spiritual care concerns: No Meds Home Medications and Allergies Home Medications ?Medication ?Instructions ?Recorded ?Confirmed ?Type ergocalciferol (vitamin D2) 1,250 1,250 mcg PO DAILY 0 12/24/21 07/27/25 History mcg (50,000 unit) capsule hydrocodone 7.5 mg-acetaminophen 1 tablet PO Q4-6H PRN Pain 12/24/21 07/27/25 History 325 mg tablet leuprolide 3.75 mg intramuscular See Rx Instructions . Route .COMPLEX 12/24/21 07/27/25 History pantoprazole 40 mg tablet,delayed 40 mg PO BID 3 07/27/25 History release olanzapine 5 mg tablet 5 mg PO QPM 06/03/25 5 History prednisone 10 mg tablet 10 mg PO DAILY 06/03/2501/15 History lisinopril 20 mg tablet 20 mg PO DAILY 07/23/2501/15 History metoprolol succinate 25 mg 25 mg PO DAILY 07/23/2501/15 History tablet,extended release 24 hr prochlorperazine maleate 10 mg 10 mg PO BID 07/23/25 1 09/26/24 History tablet (Compazine) solifenacin 5 mg tablet (Vesicare) 5 mg PO DAILY 07/2307/27/25 History loratadine 10 mg tablet 10 mg PO DAILY 07/24/2501/15 History (Allerclear) Allergies Allergy/AdvReac Type Severity Reaction Status Date / Time meperidine AdvReac Nausea and Verified 07/27/25 21:27 Vomiting Vital Signs Vital Signs - 24 hr 07/27/25 22:38 07/27/25 23:59 07/28/25 10:02 Temperature 98.3 F 97.4 F L Pulse Rate 70 70 78 Respiratory Rate 20 16 Blood Pressure 132/76 133/65 Pulse Oximetry 95 97 Oxygen Delivery Room Air Room Air Exam Narrative: GENERAL: Pleasant male, in no acute distress and comfortable up in chair HEENT: PERRLA, EOMI. Oropharynx clear. Moist mucous membranes. HEART: Regular rate and rhythm without murmur, rubs, or gallops LUNGS: Clear to auscultation bilaterally. no respiratory distress ABDOMEN: Soft, positive bowel sounds, non-tender, no organomegaly. SKIN: No rash, no excessive bruising, petechiae, or purpura. NEUROLOGIC: Cranial nerves II-XII intact, alert and oriented x 3, no gross motor deficits EXTREMITIES: no edema, cyanosis or clubbing Bilateral forearm with splint Left hip tender anteriorly restricted range of motion Psych: Normal affect Assessment and Plan Assessment and plan (1) Physical deconditioning: Code(s): R53.81 - Other malaise Status: Acute Assessment and Plan: Patient admitted for swing bed due to fall with injury * PT/OT * Up to chair with meals (2) Fracture of right distal radius: Onset Date: 06/2025 Qualifiers: Encounter type: initial encounter Fracture type: closed Fracture morphology: Boni Qualified Code(s): S52.531A - Colles' fracture of right radius, initial encounter for closed fracture Code(s): S52.501A - Unspecified fracture of the lower end of right radius, initial encounter for closed fracture Status: Acute Assessment and Plan: Post fall patient with bilateral wrist fractures * Bilateral splints * Follow-up with ortho outpatient doctor Gabrielle * flat board walker * pain management * bowel regiment * Neurovascular checks (3) Fracture of left distal radius: Onset Date: 06/2025 Qualifiers: Encounter type: initial encounter Fracture type: closed Fracture morphology: Kam' Qualified Code(s): S52.532A - Colles' fracture of left radius, initial encounter for closed fracture Code(s): S52.502A - Unspecified fracture of the lower end of left radius, initial encounter for closed fracture Status: Acute Assessment and Plan: See Above (4) Bilateral pubic rami fractures: Code(s): S32.591A - Other specified fracture of right pubis, initial encounter for closed fracture; S32.592A - Other specified fracture of left pubis, initial encounter for closed fracture Status: Acute Assessment and Plan: * Nonsurgical * Follow-up with orthopedics outpatient * Pain management * PT/OT * Bowel regiment (5) HTN (hypertension): Code(s): I10 - Essential (primary) hypertension Status: Acute Assessment and Plan: * Continued patient's metoprolol and lisinopril * Monitor BP per unit protocol L Plan Code status: Full code per patient DVT prophylaxis: SCD Stress ulcer prophylaxis: Protonix 40 daily home dose PT/OT notes: Swing bed Disposition: Patient admitted to [facility] swing bed for continued physical and occupational therapy post fall at home with bilateral radial fractures and bilateral rami fractures. Continue with pain management and physical and occupational therapy for strength training and endurance plan is to return home at discharge. Quality VTE Prophylaxis VTE prophylaxis: mechanical ordered -Patient's previous records reviewed on admission -ER notes reviewed in detail on admission -discussed all findings and current treatment plan with patient/Family/POA -Consultations reviewed for recommendations -Patient's disposition for safe discharge discussed with gearcase assembler -radiology imaging, EKG and test results I have personally reviewed and interpreted unless otherwise specified Dictation performed by [employer] direct speech recognition software, therefore nike athlete variants and typographical errors may occur. Hospitalist MIPS Advance Care Plan I have confirmed that the patient's Advanced Care Plan is present, code status is documented, or surrogate decision maker is listed in patient medical record.: Yes Medication Reconciliation I have utilized all available resources to obtain, update and review the patients current medications (includes all prescriptions, OTC, herbals, cannabis, and nutritional supplements).: Yes The patient is not eligible for med reconciliation; the patient is in a emergent medical situation where delaying treatment would jeopardize the patients health.: No
[2025-07-28 16:00] VITALS: BP 105/55; PULSE 74; RESP 18; TEMP 36.6; O2SAT 96
[2025-07-28 20:00] VITALS: PULSE 65; RESP 20; O2SAT 97
[2025-07-29] VITALS: BP 101/58; PULSE 65; RESP 20; TEMP 37.2; O2SAT 97
[2025-07-29 07:40] VITALS: BP 148/72; PULSE 79; RESP 16; TEMP 36.9; O2SAT 96
[2025-07-29 08:35] VITALS: PULSE 79; RESP 16; O2SAT 96
[2025-07-29] MEDS: LORATADINE 10 MG TABLET PO (09:39)
[2025-07-29 09:40] VITALS: PULSE 79
[2025-07-29] MEDS: PROCHLORPERAZINE MALEATE 5 MG TABLET 10 MG PO ×2 (09:40→20:09)
[2025-07-29] MEDS: METOPROLOL SUCCINATE EXT REL 25 MG TABCR PO (09:40)
[2025-07-29] MEDS: PANTOPRAZOLE 40 MG TABLET PO ×2 (09:40→20:10)
[2025-07-29] MEDS: SOLIFENACIN 5 MG TABLET PO (09:40)
[2025-07-29] MEDS: HYDROcodone/acetaminophen (*CRX) 7.5-325 MG TABLET 1 TAB PO ×3 (09:42→20:09)
[2025-07-29 16:30] VITALS: BP 136/69; PULSE 73; RESP 16; TEMP 37.2; O2SAT 96
[2025-07-29 20:00] VITALS: PULSE 70; RESP 16; O2SAT 97
[2025-07-30] VITALS: BP 145/69; PULSE 70; RESP 16; TEMP 36.5; O2SAT 97
[2025-07-30 08:00] VITALS: BP 143/67; PULSE 80; RESP 18; TEMP 36.7; O2SAT 95
[2025-07-30] MEDS: HYDROcodone/acetaminophen (*CRX) 7.5-325 MG TABLET 1 TAB PO ×3 (08:08→18:17)
[2025-07-30 08:09] VITALS: PULSE 80
[2025-07-30] MEDS: METOPROLOL SUCCINATE EXT REL 25 MG TABCR PO (08:09)
[2025-07-30] MEDS: SOLIFENACIN 5 MG TABLET PO (08:09)
[2025-07-30] MEDS: PANTOPRAZOLE 40 MG TABLET PO ×2 (08:12→21:13)
[2025-07-30] MEDS: PROCHLORPERAZINE MALEATE 5 MG TABLET 10 MG PO ×2 (08:12→21:13)
[2025-07-30] MEDS: LORATADINE 10 MG TABLET PO (08:12)
--- NOTE | 2025-07-30 08:42 | P.PNCROSS_ITS ---
Event Note Event Note Event Note: patient is a 70-year-old male admitted to [facility] swing bed w ith focus on strength training, functional mobility, ambulation, balance, endurance and independency with ADLs. Patient had suffered a fall at home which resulted in bilateral radius fractures and bilateral pelvic rami fractures. Both bilateral upper extremities are splinted making this difficult for patient to use a regular wheeled walker for ambulation and transfers. for continued rehabilitation patient will require a standard walker with bilateral platform attachments for mobility, ambulation and transfers.
[2025-07-30] MEDS: THERAPEUTIC MULTIVITAMINS/MINERALS TAB (*BKC) 1 TABLET PO (08:47)
[2025-07-30 16:00] VITALS: BP 122/72; PULSE 71; RESP 18; TEMP 36.7; O2SAT 95
[2025-07-31] VITALS: BP 127/67; PULSE 66; RESP 18; TEMP 36.8; O2SAT 98
[2025-07-31] MEDS: HYDROcodone/acetaminophen (*CRX) 7.5-325 MG TABLET 1 TAB PO ×3 (00:42→20:32)
[2025-07-31 08:00] VITALS: BP 135/64; PULSE 74; RESP 16; TEMP 36.8; O2SAT 96
[2025-07-31] MEDS: LORATADINE 10 MG TABLET PO (09:09)
[2025-07-31] MEDS: PROCHLORPERAZINE MALEATE 5 MG TABLET 10 MG PO ×2 (09:09→20:34)
[2025-07-31] MEDS: PANTOPRAZOLE 40 MG TABLET PO ×2 (09:09→20:34)
[2025-07-31] MEDS: THERAPEUTIC MULTIVITAMINS/MINERALS TAB (*BKC) 1 TABLET PO (09:09)
[2025-07-31] MEDS: SOLIFENACIN 5 MG TABLET PO (09:09)
[2025-07-31] MEDS: METOPROLOL SUCCINATE EXT REL 25 MG TABCR PO (09:09)
[2025-07-31 16:00] VITALS: BP 123/85; PULSE 65; RESP 16; TEMP 36.1; O2SAT 98
[2025-07-31 20:00] VITALS: PULSE 65; RESP 16; O2SAT 98
[2025-08-01] VITALS: BP 122/66; PULSE 69; RESP 18; TEMP 37.3; O2SAT 96
[2025-08-01 08:00] VITALS: BP 145/71; PULSE 75; RESP 16; TEMP 37.1; O2SAT 98
[2025-08-01] MEDS: HYDROcodone/acetaminophen (*CRX) 7.5-325 MG TABLET 1 TAB PO ×2 (08:52→20:40)
[2025-08-01 08:53] VITALS: PULSE 75
[2025-08-01] MEDS: METOPROLOL SUCCINATE EXT REL 25 MG TABCR PO (08:53)
[2025-08-01] MEDS: LORATADINE 10 MG TABLET PO (08:53)
[2025-08-01] MEDS: THERAPEUTIC MULTIVITAMINS/MINERALS TAB (*BKC) 1 TABLET PO (08:53)
[2025-08-01] MEDS: PANTOPRAZOLE 40 MG TABLET PO ×2 (08:53→20:42)
[2025-08-01] MEDS: PROCHLORPERAZINE MALEATE 5 MG TABLET 10 MG PO ×2 (08:53→20:40)
[2025-08-01] MEDS: SOLIFENACIN 5 MG TABLET PO (08:54)
[2025-08-01 16:00] VITALS: BP 129/61; PULSE 72; RESP 16; TEMP 36.9; O2SAT 98
[2025-08-01 20:00] VITALS: PULSE 72; RESP 16; O2SAT 98
[2025-08-02] VITALS: BP 131/67; PULSE 74; RESP 16; TEMP 37.1; O2SAT 97
[2025-08-02 07:45] VITALS: BP 115/65; PULSE 85; RESP 18; TEMP 36.6; O2SAT 97
[2025-08-02 08:30] VITALS: O2SAT 97
[2025-08-02] MEDS: HYDROcodone/acetaminophen (*CRX) 7.5-325 MG TABLET 1 TAB PO ×4 (08:45→21:35)
[2025-08-02 08:46] VITALS: PULSE 85
[2025-08-02] MEDS: METOPROLOL SUCCINATE EXT REL 25 MG TABCR PO (08:46)
[2025-08-02] MEDS: PANTOPRAZOLE 40 MG TABLET PO ×2 (08:47→21:36)
[2025-08-02] MEDS: PROCHLORPERAZINE MALEATE 5 MG TABLET 10 MG PO ×2 (08:47→21:34)
[2025-08-02] MEDS: SOLIFENACIN 5 MG TABLET PO (08:47)
[2025-08-02] MEDS: THERAPEUTIC MULTIVITAMINS/MINERALS TAB (*BKC) 1 TABLET PO (08:47)
[2025-08-02] MEDS: LORATADINE 10 MG TABLET PO (08:47)
--- NOTE | 2025-08-02 14:10 | PC.NURSE ---
Patient going to Dr. Eri espinoza. German mattson picked patient up at 1410. accompanied patient to olga.
--- NOTE | 2025-08-02 17:00 | PC.NURSE ---
Patient returned from MD appointment in stable condition, transported by medical van, accompanied.
[2025-08-02 17:05] VITALS: BP 156/77; PULSE 70; RESP 16; TEMP 36.5; O2SAT 97
--- NOTE | 2025-08-02 17:05 | PC.NURSE ---
Patient back from Dr. espinoza. Resting in bed with hob elevated. Splints changed at Dr. espinoza. New braces placed on wrists. Braces to stay on at all times except with hygiene/shower.
[2025-08-03] VITALS: BP 134/62; PULSE 64; RESP 18; TEMP 37.3; O2SAT 97
[2025-08-03 08:00] VITALS: BP 122/69; PULSE 69; RESP 16; TEMP 36.1; O2SAT 95
[2025-08-03 08:30] VITALS: PULSE 72
[2025-08-03] MEDS: SOLIFENACIN 5 MG TABLET PO (08:30)
[2025-08-03] MEDS: PROCHLORPERAZINE MALEATE 5 MG TABLET 10 MG PO ×2 (08:30→20:53)
[2025-08-03] MEDS: THERAPEUTIC MULTIVITAMINS/MINERALS TAB (*BKC) 1 TABLET PO (08:30)
[2025-08-03] MEDS: METOPROLOL SUCCINATE EXT REL 25 MG TABCR PO (08:30)
[2025-08-03] MEDS: LORATADINE 10 MG TABLET PO (08:31)
[2025-08-03] MEDS: HYDROcodone/acetaminophen (*CRX) 7.5-325 MG TABLET 1 TAB PO ×3 (08:31→20:52)
[2025-08-03] MEDS: PANTOPRAZOLE 40 MG TABLET PO ×2 (08:31→20:53)
[2025-08-03 16:00] VITALS: BP 136/61; PULSE 66; RESP 18; TEMP 36.4; O2SAT 97
[2025-08-04] VITALS: BP 126/64; PULSE 60; RESP 20; TEMP 36.8; O2SAT 96
--- NOTE | 2025-08-04 00:15 | PC.NURSE ---
Pt resting quietly in bed and doesnt voice any c/o discomfort.
--- NOTE | 2025-08-04 02:18 | PC.NURSE ---
Pt asleep and no signs of discomfort noted.
--- NOTE | 2025-08-04 04:16 | PC.NURSE ---
Pt asleep and no signs of discomfort noted.
[2025-08-04 05:26] LABS: Hematocrit 31.4 % (37.0-46.0); Hemoglobin 9.8 g/dL (12.4-15.3); Mean Corpuscular HGB Conc 31.2 g/dL (32-36); Mean Corpuscular Hemoglobin 28.7 pg (27.0-31.0); Mean Corpuscular Volume 91.8 fL (78.0-102.0); Platelet Count Result 310 K/mm3 (150-420); Red Blood Count 3.42 M/mm3 (4.70-6.10); White Blood Count 8.2 K/mm3 (4.8-10.8)
[2025-08-04 05:41] LABS: Alanine Aminotransferase 12 U/L (6-50); Albumin Level 3.2 g/dL (3.5-5.1); Alkaline Phosphatase 120 U/L (38-126); Anion Gap 4 mmol/L (4-12); Aspartate Amino Transferase 16 U/L (17-59); Blood Urea Nitrogen 28 mg/dL (9-20); Calcium 8.8 mg/dL (8.4-10.2); Carbon Dioxide 33 mmol/L (22-30); Chloride 104 mmol/L (98-107); Estimated CRCL calculation 69 ml/min; Estimated Glomerular Filt Rate > 60; Glucose 98 mg/dL (65-110); Magnesium 2.3 mg/dL (1.6-2.3); Osmolality Calculated 297 mOsm/kg (285-295); Potassium 3.9 mmol/L (3.4-5.0); Sodium 141 mmol/L (137-145); Total Protein 5.5 g/dL (6.3-8.2)
--- NOTE | 2025-08-04 06:05 | PC.NURSE ---
Pt assisted with repositioning in bed
[2025-08-04] MEDS: HYDROcodone/acetaminophen (*CRX) 7.5-325 MG TABLET 1 TAB PO ×3 (07:44→20:13)
--- NOTE | 2025-08-04 07:55 | P.PNIM_ITS ---
Progress Note: A&P Assessment and Plan (1) Physical deconditioning: Code(s): R53.81 - Other malaise Status: Acute Assessment and Plan: Patient admitted for swing bed due to fall with injury * PT/OT * Up to chair with meals (2) Fracture of right distal radius: Onset Date: 06/2025 Qualifiers: Encounter type: initial encounter Fracture morphology: Colles' Fracture type: closed Qualified Code(s): S52.531A - Colles' fracture of right radius, initial encounter for closed fracture Code(s): S52.501A - Unspecified fracture of the lower end of right radius, initial encounter for closed fracture Status: Acute Assessment and Plan: Post fall patient with bilateral wrist fractures * Bilateral splints * Follow-up with ortho outpatient doctor Gabrielle * flat board walker * pain management * bowel regimen started with daily PO Miralax * Neurovascular checks (3) Fracture of left distal radius: Onset Date: 06/2025 Qualifiers: Encounter type: initial encounter Fracture morphology: Colles' Fracture type: closed Qualified Code(s): S52.532A - Colles' fracture of left radius, initial encounter for closed fracture Code(s): S52.502A - Unspecified fracture of the lower end of left radius, initial encounter for closed fracture Status: Acute Assessment and Plan: See Above (4) Bilateral pubic rami fractures: Code(s): S32.591A - Other specified fracture of right pubis, initial encounter for closed fracture; S32.592A - Other specified fracture of left pubis, initial encounter for closed fracture Status: Acute Assessment and Plan: * Nonsurgical * Follow-up with orthopedics outpatient * Pain management * PT/OT * Bowel regimen started today with PO Miralax (5) HTN (hypertension): Code(s): I10 - Essential (primary) hypertension Status: Acute Assessment and Plan: * Continued patient's metoprolol and lisinopril * Monitor BP per unit protocol Plan Code status: Full code per patient DVT prophylaxis: SCD Stress ulcer prophylaxis: Protonix 40 daily home dose PT/OT notes: Swing bed Disposition: Patient admitted to [facility] for continued physical and occupational therapy post fall at home with bilateral radial fractures and bilateral rami fractures. Continue with pain management and physical and occupational therapy for strength training and endurance plan is to return home at discharge. Subjective Date/time seen: 08/04/25 07:55 Interval history: Patient seen for a follow up visit. Patient sitting up in the chair, in no acute distress. Patient reports his pain is controlled with current medication routine. Patient with complaints of bowel movement since Saturday. Start bowel regimen with Miralax daily. Encouraged PO fluids and activity. Patient is participating in rehab. Patient has splints to bilateral writsts and is using a walker with platforms for ambulation. Review of Systems Review of Systems: All systems reviewed & are unremarkable except as noted in HPI and below Exam Narrative: GENERAL: Pleasant male, in no acute distress and comfortable HEENT: PERRLA, EOMI. Oropharynx clear. Moist mucous membranes. HEART: Regular rate and rhythm without murmur, rubs, or gallops LUNGS: Clear to auscultation bilaterally. no respiratory distress ABDOMEN: Soft, positive bowel sounds, non-tender, no organomegaly. SKIN: No rash, no excessive bruising, petechiae, or purpura. NEUROLOGIC: Cranial nerves II-XII intact, alert and oriented x 3, no gross motor deficits EXTREMITIES: no edema, cyanosis or clubbing Bilateral forearm with splint Left hip tender anteriorly restricted range of motion Psych: Normal affect Objective Data Vital Signs Vital Signs: Vital Signs - 24 hr 08/03/25 08:00 08/03/25 08:30 08/03/25 16:00 Temperature 97 F L 97.6 F Pulse Rate 69 72 66 Respiratory Rate 16 18 Blood Pressure 122/69 136/61 Pulse Oximetry 95 97 Oxygen Delivery Room Air Room Air 08/04/25 00:00 Temperature 98.2 F Pulse Rate 60 Respiratory Rate 20 Blood Pressure 126/64 Pulse Oximetry 96 Oxygen Delivery Room Air Intake/Output Intake/Output: Intake & Output 08/01/25 08/02/25 08/03/25 08/04/25 23:59 23:59 23:59 23:59 Intake Total 2074 1160 2320 100 Output Total 1325 625 875 Balance 870 968 5351 100 Meds/Results Medications: Active Medications Generic Name Dose Route Start Last Admin Trade Name Igorq PRN Reason Stop Dose Admin Acetaminophen 650 mg 07/27/25 21:26 Acetaminophen 325 Mg Tablet PO Q4H PRN Mild Pain (1-3) or Fever Hydrocodone Bitart/Acetaminophen 1 tab 07/27/25 21:28 08/04/25 07:44 Hydrocodone/Acetaminophen (*Crx) 7.5-325 Mg Tablet PO 1 tab Q4-6H PRN Administration Pain 4-10 Ergocalciferol 1,250 mcg 08/04/25 09:00 Ergocalciferol (Vitamin D2) 1,250 Mcg (50,000 Units) Capsule PO WEEKLY RON Lisinopril 20 mg 07/28/25 09:00 08/03/25 08:31 Lisinopril 20 Mg Tablet PO 20 mg DAILY RON Administration Loratadine 10 mg 07/28/25 09:00 08/03/25 08:31 Loratadine 10 Mg Tablet PO 10 mg DAILY RON Administration Metoprolol Succinate 25 mg 07/28/25 09:00 08/03/25 08:30 Metoprolol Succinate Ext Rel 25 Mg Tabcr PO 25 mg DAILY RON Administration Multivitamins/Calcium 1 tablet 07/30/25 09:00 08/03/25 08:30 Therapeutic Multivitamins/Minerals Tab (*Bkc) PO 1 tablet DAILY RON Administration Olanzapine 5 mg 07/27/25 21:45 08/03/25 20:53 Olanzapine 2.5 Mg Tablet PO 5 mg QHS [facility] Administration Ondansetron HCl 4 mg 07/28/25 09:30 Ondansetron Hcl Odt 4 Mg Tablet PO Q6H PRN Nausea And Vomiting Pantoprazole Sodium 40 mg 07/28/25 09:00 08/03/25 20:53 Pantoprazole 40 Mg Tablet PO 40 mg Q12HR RON Administration Prednisone 10 mg 07/28/25 08:00 08/04/25 07:45 Prednisone 10 Mg Tablet PO 10 mg DAILY@0800 [facility] Administration Prochlorperazine Maleate 10 mg 07/27/25 21:45 08/03/25 20:53 Prochlorperazine Maleate 5 Mg Tablet PO 10 mg Q12HR RON Administration Solifenacin 5 mg 07/28/25 09:00 08/03/25 08:30 Solifenacin 5 Mg Tablet PO 5 mg DAILY RON Administration Labs Labs: Laboratory Results - last 24 hr 08/04/25 05:17 WBC 8.2 RBC 3.42 L Hgb 9.8 L Hct 31.4 L MCV 91.8 MCH 28.7 MCHC 31.2 L RDW 14.7 H Plt Count 310 MPV 9.5 Sodium 141 Potassium 3.9 Chloride 104 Carbon Dioxide 33 H Anion Gap 4 BUN 28 H Creatinine 0.64 L Estim Creat Clear Calc 69 Estimated GFR > 60 Glucose 98 Calculated Osmolality 297 H Calcium 8.8 Magnesium 2.3 Total Bilirubin 1.2 AST 16 L ALT 12 Alkaline Phosphatase 120 Total Protein 5.5 L Albumin 3.2 L Quality VTE Prophylaxis VTE prophylaxis: mechanical ordered
[2025-08-04 08:00] VITALS: BP 133/66; PULSE 75; RESP 16; TEMP 36.7; O2SAT 96
[2025-08-04] MEDS: THERAPEUTIC MULTIVITAMINS/MINERALS TAB (*BKC) 1 TABLET PO (08:35)
[2025-08-04 08:36] VITALS: PULSE 75
[2025-08-04] MEDS: PANTOPRAZOLE 40 MG TABLET PO ×2 (08:36→20:13)
[2025-08-04] MEDS: SOLIFENACIN 5 MG TABLET PO (08:36)
[2025-08-04] MEDS: METOPROLOL SUCCINATE EXT REL 25 MG TABCR PO (08:36)
[2025-08-04] MEDS: PROCHLORPERAZINE MALEATE 5 MG TABLET 10 MG PO ×2 (08:36→20:14)
[2025-08-04] MEDS: LORATADINE 10 MG TABLET PO (08:36)
[2025-08-04] MEDS: ERGOCALCIFEROL (VITAMIN D2) 1,250 MCG (50,000 UNITS) CAPSULE 1250 MCG PO (08:54)
[2025-08-04 16:00] VITALS: BP 123/67; PULSE 74; RESP 16; TEMP 36.3; O2SAT 97
--- NOTE | 2025-08-04 18:45 | PC.NURSE ---
ASSUMED CARE. REPORT RECEIVED FROM ERIC FISH. PATIENT IS CURRENTLY RESTING ON BED IN ROOM WITH AT HIS SIDE. CURRENTLY DENIES ANY NEEDS. PATIENT HAS CALL LIGHT IN REACH. PATIENT VERBALIZED UNDERSTANDING TO CALL OUT FOR ASSISTANCE.
[2025-08-05] VITALS: BP 121/53; PULSE 66; RESP 16; TEMP 36.1; O2SAT 96
[2025-08-05] MEDS: HYDROcodone/acetaminophen (*CRX) 7.5-325 MG TABLET 1 TAB PO ×4 (05:53→20:44)
[2025-08-05 08:00] VITALS: BP 123/70; PULSE 76; RESP 18; TEMP 36.7; O2SAT 96
[2025-08-05 08:39] VITALS: PULSE 72
[2025-08-05] MEDS: THERAPEUTIC MULTIVITAMINS/MINERALS TAB (*BKC) 1 TABLET PO (08:39)
[2025-08-05] MEDS: METOPROLOL SUCCINATE EXT REL 25 MG TABCR PO (08:39)
[2025-08-05] MEDS: PROCHLORPERAZINE MALEATE 5 MG TABLET 10 MG PO ×2 (08:39→20:43)
[2025-08-05] MEDS: SOLIFENACIN 5 MG TABLET PO (08:39)
[2025-08-05] MEDS: LORATADINE 10 MG TABLET PO (08:39)
[2025-08-05] MEDS: PANTOPRAZOLE 40 MG TABLET PO ×2 (08:39→20:43)
--- NOTE | 2025-08-05 15:41 | PC.NURSE ---
Encourage patient up to chair for supper meal, patient refused.
[2025-08-05 16:00] VITALS: BP 106/54; PULSE 66; RESP 18; TEMP 36.6; O2SAT 96
--- NOTE | 2025-08-05 18:40 | PC.NURSE ---
ASSUMED CARE. REPORT RECEIVED FROM ERIC FISH. PATIENT IS RESTING ON BED. FAMILY AT THE BEDSIDE. CURRENTLY DENIES ANY NEEDS. CALL LIGHT IN REACH
[2025-08-06] VITALS: BP 116/83; PULSE 61; RESP 18; TEMP 36.3; O2SAT 96
[2025-08-06 08:00] VITALS: BP 153/66; PULSE 63; RESP 18; TEMP 36.3; O2SAT 96
[2025-08-06] MEDS: PANTOPRAZOLE 40 MG TABLET PO ×2 (08:13→20:50)
[2025-08-06] MEDS: HYDROcodone/acetaminophen (*CRX) 7.5-325 MG TABLET 1 TAB PO ×3 (08:13→20:50)
[2025-08-06] MEDS: PROCHLORPERAZINE MALEATE 5 MG TABLET 10 MG PO ×2 (08:13→20:58)
[2025-08-06 08:14] VITALS: PULSE 63
[2025-08-06] MEDS: METOPROLOL SUCCINATE EXT REL 25 MG TABCR PO (08:14)
[2025-08-06] MEDS: LORATADINE 10 MG TABLET PO (08:14)
[2025-08-06] MEDS: THERAPEUTIC MULTIVITAMINS/MINERALS TAB (*BKC) 1 TABLET PO (08:14)
[2025-08-06] MEDS: SOLIFENACIN 5 MG TABLET PO (08:14)
[2025-08-06 16:00] VITALS: BP 130/59; PULSE 61; RESP 16; TEMP 36.2; O2SAT 96
--- NOTE | 2025-08-06 17:59 | PC.NURSE ---
Patient resting quietly in bed watching TV. Answered questions appropriately. No c/o offered. Call light and belongings within reach. SR up x2.
[2025-08-07] VITALS: BP 120/59; PULSE 66; RESP 20; TEMP 36.6; O2SAT 96
--- NOTE | 2025-08-07 00:20 | PC.NURSE ---
Pt resting quietly in bed and doesnt voice any c/o discomfort.
--- NOTE | 2025-08-07 02:24 | PC.NURSE ---
Pt asleep and no signs of discomfort noted.
--- NOTE | 2025-08-07 04:25 | PC.NURSE ---
Pt asleep and no signs of discomfort noted.
--- NOTE | 2025-08-07 06:30 | PC.NURSE ---
Pt resting quietly in bed and doesnt voice any c/o discomfort.
--- NOTE | 2025-08-07 07:52 | P.PNIM_ITS ---
Progress Note: A&P Assessment and Plan (1) Physical deconditioning: Code(s): R53.81 - Other malaise Status: Acute Assessment and Plan: Patient admitted for swing bed due to fall with injury * PT/OT * Up to chair with meals * patient is participating in rehab (2) Fracture of right distal radius: Onset Date: 06/2025 Qualifiers: Encounter type: initial encounter Fracture morphology: Colles' Fracture type: closed Qualified Code(s): S52.531A - Colles' fracture of right radius, initial encounter for closed fracture Code(s): S52.501A - Unspecified fracture of the lower end of right radius, initial encounter for closed fracture Status: Acute Assessment and Plan: Post fall patient with bilateral wrist fractures * Bilateral splints * Follow-up with ortho outpatient doctor Gabrielle * flat board walker * pain management * bowel regimen with daily PO Miralax * Neurovascular checks (3) Fracture of left distal radius: Onset Date: 06/2025 Qualifiers: Encounter type: initial encounter Fracture morphology: Colles' Fracture type: closed Qualified Code(s): S52.532A - Colles' fracture of left radius, initial encounter for closed fracture Code(s): S52.502A - Unspecified fracture of the lower end of left radius, initial encounter for closed fracture Status: Acute Assessment and Plan: See Above (4) Bilateral pubic rami fractures: Code(s): S32.591A - Other specified fracture of right pubis, initial encounter for closed fracture; S32.592A - Other specified fracture of left pubis, initial encounter for closed fracture Status: Acute Assessment and Plan: * Nonsurgical * Follow-up with orthopedics outpatient * Pain management * PT/OT * Bowel regimen with PO Miralax (5) HTN (hypertension): Code(s): I10 - Essential (primary) hypertension Status: Acute Assessment and Plan: * Continued patient's metoprolol and lisinopril * Monitor BP per unit protocol Plan Code status: Full code per patient DVT prophylaxis: SCD Stress ulcer prophylaxis: Protonix 40 daily home dose PT/OT notes: Swing bed Disposition: Patient admitted to [facility] for continued physical and occupational therapy post fall at home with bilateral radial fractures and bilateral rami fractures. Continue with pain management and physical and occupational therapy for strength training and endurance plan is to return home at discharge. Subjective Date/time seen: 08/07/25 07:52 Interval history: Patient seen for a follow up visit. Patient lying in bed, in no acute distress. Patient reports some leg pain but that it is controlled with the curren pain medications. Patient participates in therapy. Patient denies other acute medical complaints. Patient reports he is eating well and drinking well. Patient's vital signs reviewed and appear stable. Review of Systems Review of Systems: All systems reviewed & are unremarkable except as noted in HPI and below Exam Narrative: GENERAL: Pleasant male, in no acute distress and comfortable HEENT: PERRLA, EOMI. Oropharynx clear. Moist mucous membranes. HEART: Regular rate and rhythm without murmur, rubs, or gallops LUNGS: Clear to auscultation bilaterally. no respiratory distress ABDOMEN: Soft, positive bowel sounds, non-tender, no organomegaly. SKIN: No rash, no excessive bruising, petechiae, or purpura. NEUROLOGIC: Cranial nerves II-XII intact, alert and oriented x 3, no gross motor deficits EXTREMITIES: no edema, cyanosis or clubbing Bilateral forearm with splint Left hip tender anteriorly restricted range of motion Psych: Normal affect Objective Data Vital Signs Vital Signs: Vital Signs - 24 hr 08/06/25 08:00 08/06/25 08:14 08/06/25 16:00 Temperature 97.3 F L 97.1 F L Pulse Rate 63 63 61 Respiratory Rate 18 16 Blood Pressure 153/66 H 130/59 L Pulse Oximetry 96 96 Oxygen Delivery Room Air Room Air 08/07/25 00:00 Temperature 97.8 F Pulse Rate 66 Respiratory Rate 20 Blood Pressure 120/59 L Pulse Oximetry 96 Oxygen Delivery Room Air Intake/Output Intake/Output: Intake & Output 08/04/25 08/05/25 08/06/25 08/07/25 23:59 23:59 23:59 23:59 Intake Total 1600 1940 1717 200 Output Total 395 235 5524 125 Balance 900 1240 667 75 Meds/Results Medications: Active Medications Generic Name Dose Route Start Last Admin Trade Name Freq PRN Reason Stop Dose Admin Acetaminophen 650 mg 07/27/25 21:26 Acetaminophen 325 Mg Tablet PO Q4H PRN Mild Pain (1-3) or Fever Hydrocodone Bitart/Acetaminophen 1 tab 07/27/25 21:28 08/06/25 20:50 Hydrocodone/Acetaminophen (*Crx) 7.5-325 Mg Tablet PO 1 tab Q4-6H PRN Administration Pain 4-10 Ergocalciferol 1,250 mcg 08/04/25 09:00 08/04/25 08:54 Ergocalciferol (Vitamin D2) 1,250 Mcg (50,000 Units) Capsule PO 1,250 mcg WEEKLY RON Administration Lisinopril 20 mg 07/28/25 09:00 08/06/25 08:14 Lisinopril 20 Mg Tablet PO 20 mg DAILY RON Administration Loratadine 10 mg 07/28/25 09:00 08/06/25 08:14 Loratadine 10 Mg Tablet PO 10 mg DAILY RON Administration Metoprolol Succinate 25 mg 07/28/25 09:00 08/06/25 08:14 Metoprolol Succinate Ext Rel 25 Mg Tabcr PO 25 mg DAILY RON Administration Multivitamins/Calcium 1 tablet 07/30/25 09:00 08/06/25 08:14 Therapeutic Multivitamins/Minerals Tab (*Bkc) PO 1 tablet DAILY RON Administration Olanzapine 5 mg 07/27/25 21:45 08/06/25 20:53 Olanzapine 2.5 Mg Tablet PO 5 mg QHS RON Administration Ondansetron HCl 4 mg 07/28/25 09:30 Ondansetron Hcl Odt 4 Mg Tablet PO Q6H PRN Nausea And Vomiting Pantoprazole Sodium 40 mg 07/28/25 09:00 08/06/25 20:50 Pantoprazole 40 Mg Tablet PO 40 mg Q12HR RON Administration Polyethylene Glycol 17 gm 08/06/25 14:36 Polyethylene Glycol 3350 17 Gm Powd.Pack PO QAM PRN constipation Prednisone 10 mg 07/28/25 08:00 08/06/25 08:14 Prednisone 10 Mg Tablet PO 10 mg DAILY@0800 [facility] Administration Prochlorperazine Maleate 10 mg 07/27/25 21:45 08/06/25 20:58 Prochlorperazine Maleate 5 Mg Tablet PO 10 mg Q12HR RON Administration Solifenacin 5 mg 07/28/25 09:00 08/06/25 08:14 Solifenacin 5 Mg Tablet PO 5 mg DAILY RON Administration Labs Labs: Laboratory Results - last 24 hr 08/04/25 05:17 WBC 8.2 RBC 3.42 L Hgb 9.8 L Hct 31.4 L MCV 91.8 MCH 28.7 MCHC 31.2 L RDW 14.7 H Plt Count 310 MPV 9.5 Sodium 141 Potassium 3.9 Chloride 104 Carbon Dioxide 33 H Anion Gap 4 BUN 28 H Creatinine 0.64 L Estim Creat Clear Calc 69 Estimated GFR > 60 Glucose 98 Calculated Osmolality 297 H Calcium 8.8 Magnesium 2.3 Total Bilirubin 1.2 AST 16 L ALT 12 Alkaline Phosphatase 120 Total Protein 5.5 L Albumin 3.2 L Quality VTE Prophylaxis VTE prophylaxis: mechanical ordered
[2025-08-07 08:00] VITALS: BP 133/70; PULSE 69; RESP 16; TEMP 36.8; O2SAT 97
[2025-08-07] MEDS: SOLIFENACIN 5 MG TABLET PO (08:34)
[2025-08-07] MEDS: PROCHLORPERAZINE MALEATE 5 MG TABLET 10 MG PO ×2 (08:34→21:13)
[2025-08-07] MEDS: PANTOPRAZOLE 40 MG TABLET PO ×2 (08:34→21:13)
[2025-08-07 08:35] VITALS: PULSE 69
[2025-08-07] MEDS: METOPROLOL SUCCINATE EXT REL 25 MG TABCR PO (08:35)
[2025-08-07] MEDS: LORATADINE 10 MG TABLET PO (08:35)
[2025-08-07] MEDS: HYDROcodone/acetaminophen (*CRX) 7.5-325 MG TABLET 1 TAB PO ×3 (08:40→21:14)
[2025-08-07] MEDS: THERAPEUTIC MULTIVITAMINS/MINERALS TAB (*BKC) 1 TABLET PO (09:00)
[2025-08-07 16:00] VITALS: BP 120/62; PULSE 56; RESP 16; TEMP 36.6; O2SAT 96
[2025-08-08] VITALS: BP 137/72; PULSE 62; RESP 15; TEMP 36.4; O2SAT 97
[2025-08-08 07:45] VITALS: BP 152/70; PULSE 63; RESP 16; TEMP 36.1; O2SAT 96
[2025-08-08] MEDS: HYDROcodone/acetaminophen (*CRX) 7.5-325 MG TABLET 1 TAB PO ×3 (07:54→19:23)
[2025-08-08 08:15] VITALS: PULSE 65; RESP 16; O2SAT 96
[2025-08-08] MEDS: PROCHLORPERAZINE MALEATE 5 MG TABLET 10 MG PO ×2 (09:09→20:28)
[2025-08-08] MEDS: SOLIFENACIN 5 MG TABLET PO (09:09)
[2025-08-08] MEDS: LORATADINE 10 MG TABLET PO (09:09)
[2025-08-08 09:10] VITALS: PULSE 65
[2025-08-08] MEDS: THERAPEUTIC MULTIVITAMINS/MINERALS TAB (*BKC) 1 TABLET PO (09:10)
[2025-08-08] MEDS: METOPROLOL SUCCINATE EXT REL 25 MG TABCR PO (09:10)
[2025-08-08] MEDS: PANTOPRAZOLE 40 MG TABLET PO ×2 (09:10→20:28)
[2025-08-08 16:00] VITALS: BP 148/65; PULSE 67; RESP 16; TEMP 37; O2SAT 96
[2025-08-09] VITALS: BP 138/75; PULSE 69; RESP 14; TEMP 36.6; O2SAT 97
[2025-08-09 08:00] VITALS: BP 167/68; PULSE 72; RESP 16; TEMP 36.8; O2SAT 96
[2025-08-09] MEDS: PROCHLORPERAZINE MALEATE 5 MG TABLET 10 MG PO ×2 (08:04→20:44)
[2025-08-09 08:05] VITALS: PULSE 72
[2025-08-09] MEDS: LORATADINE 10 MG TABLET PO (08:05)
[2025-08-09] MEDS: PANTOPRAZOLE 40 MG TABLET PO ×2 (08:05→20:43)
[2025-08-09] MEDS: SOLIFENACIN 5 MG TABLET PO (08:05)
[2025-08-09] MEDS: HYDROcodone/acetaminophen (*CRX) 7.5-325 MG TABLET 1 TAB PO ×3 (08:05→19:51)
[2025-08-09] MEDS: THERAPEUTIC MULTIVITAMINS/MINERALS TAB (*BKC) 1 TABLET PO (08:05)
[2025-08-09] MEDS: METOPROLOL SUCCINATE EXT REL 25 MG TABCR PO (08:05)
[2025-08-09 16:00] VITALS: BP 132/65; PULSE 66; RESP 17; TEMP 36.8; O2SAT 97
[2025-08-10] VITALS: BP 117/63; PULSE 59; RESP 18; TEMP 36.9; O2SAT 96
[2025-08-10] MEDS: THERAPEUTIC MULTIVITAMINS/MINERALS TAB (*BKC) 1 TABLET PO (07:59)
[2025-08-10] MEDS: HYDROcodone/acetaminophen (*CRX) 7.5-325 MG TABLET 1 TAB PO ×4 (07:59→19:46)
[2025-08-10 08:00] VITALS: BP 158/81; PULSE 68; RESP 17; RESP 18; TEMP 36.6; O2SAT 96; O2SAT 99
[2025-08-10] MEDS: SOLIFENACIN 5 MG TABLET PO (08:00)
[2025-08-10] MEDS: PANTOPRAZOLE 40 MG TABLET PO ×2 (08:00→20:07)
[2025-08-10] MEDS: PROCHLORPERAZINE MALEATE 5 MG TABLET 10 MG PO ×2 (08:00→20:07)
[2025-08-10] MEDS: METOPROLOL SUCCINATE EXT REL 25 MG TABCR PO (08:00)
[2025-08-10] MEDS: LORATADINE 10 MG TABLET PO (08:00)
[2025-08-10 13:09] LABS: Bilirubin,Total < 0.1 mg/dL (0.2-1.3)
[2025-08-10 16:00] VITALS: BP 121/64; PULSE 61; RESP 16; TEMP 36.7; O2SAT 98
[2025-08-10 20:00] VITALS: PULSE 61; RESP 16; O2SAT 98
[2025-08-11] VITALS: BP 145/63; PULSE 66; RESP 16; TEMP 36.8; O2SAT 96
--- NOTE | 2025-08-11 00:20 | PC.NURSE ---
Pt asleep and no signs of discomfort noted.
--- NOTE | 2025-08-11 02:25 | PC.NURSE ---
Pt asleep and no signs of discomfort noted.
--- NOTE | 2025-08-11 06:15 | PC.NURSE ---
Pt asleep and no signs of discomfort noted.
[2025-08-11] MEDS: HYDROcodone/acetaminophen (*CRX) 7.5-325 MG TABLET 1 TAB PO ×4 (07:46→21:04)
[2025-08-11 08:00] VITALS: BP 158/65; PULSE 68; RESP 16; TEMP 36.5; O2SAT 98
[2025-08-11 09:16] VITALS: PULSE 68
[2025-08-11] MEDS: THERAPEUTIC MULTIVITAMINS/MINERALS TAB (*BKC) 1 TABLET PO (09:16)
[2025-08-11] MEDS: METOPROLOL SUCCINATE EXT REL 25 MG TABCR PO (09:16)
[2025-08-11] MEDS: SOLIFENACIN 5 MG TABLET PO (09:19)
[2025-08-11] MEDS: PANTOPRAZOLE 40 MG TABLET PO ×2 (09:19→21:04)
[2025-08-11] MEDS: PROCHLORPERAZINE MALEATE 5 MG TABLET 10 MG PO ×2 (09:19→21:04)
[2025-08-11] MEDS: ERGOCALCIFEROL (VITAMIN D2) 1,250 MCG (50,000 UNITS) CAPSULE 1250 MCG PO (09:19)
[2025-08-11] MEDS: LORATADINE 10 MG TABLET PO (09:19)
[2025-08-11 16:00] VITALS: BP 148/69; PULSE 66; RESP 18; TEMP 36.8; O2SAT 95
[2025-08-11 20:00] VITALS: PULSE 58; RESP 18; O2SAT 98
[2025-08-12] VITALS: BP 117/62; PULSE 58; RESP 18; TEMP 36.7; O2SAT 98
[2025-08-12 08:00] VITALS: BP 168/72; PULSE 68; RESP 20; TEMP 36; O2SAT 93
[2025-08-12 08:23] VITALS: PULSE 76
[2025-08-12] MEDS: LORATADINE 10 MG TABLET PO (08:23)
[2025-08-12] MEDS: PROCHLORPERAZINE MALEATE 5 MG TABLET 10 MG PO (08:23)
[2025-08-12] MEDS: THERAPEUTIC MULTIVITAMINS/MINERALS TAB (*BKC) 1 TABLET PO (08:23)
[2025-08-12] MEDS: SOLIFENACIN 5 MG TABLET PO (08:23)
[2025-08-12] MEDS: PANTOPRAZOLE 40 MG TABLET PO (08:23)
[2025-08-12] MEDS: METOPROLOL SUCCINATE EXT REL 25 MG TABCR PO (08:23)
[2025-08-12] MEDS: HYDROcodone/acetaminophen (*CRX) 7.5-325 MG TABLET 1 TAB PO (08:28)
--- NOTE | 2025-08-12 09:31 | P.DS_ITS ---
DS: Admitting Diagnosis Discharge Date 08/12/2025 Admitting Diagnosis Physical deconditioned/rehab post bilateral fracture the distal radius and bilateral pubic rami fractures DS: Discharge Diagnosis Discharge Diagnosis (1) Physical deconditioning: Code(s): R53.81 - Other malaise Status: Acute Assessment and Plan: Patient admitted for swing bed due to fall with injury * PT/OT * Up to chair with meals * patient is participating in rehab (2) Fracture of right distal radius: Onset Date: 06/2025 Qualifiers: Encounter type: initial encounter Fracture type: closed Fracture morphology: Kam' Qualified Code(s): S52.531A - Colles' fracture of right radius, initial encounter for closed fracture Code(s): S52.501A - Unspecified fracture of the lower end of right radius, initial encounter for closed fracture Status: Acute Assessment and Plan: Post fall patient with bilateral wrist fractures * Bilateral splints * Follow-up with ortho outpatient doctor Gabrielle * flat board walker * pain management * bowel regimen with daily PO Miralax * Neurovascular checks (3) Fracture of left distal radius: Onset Date: 06/2025 Qualifiers: Encounter type: initial encounter Fracture type: closed Fracture morphology: Kam' Qualified Code(s): S52.532A - Colles' fracture of left radius, initial encounter for closed fracture Code(s): S52.502A - Unspecified fracture of the lower end of left radius, initial encounter for closed fracture Status: Acute Assessment and Plan: See Above (4) Bilateral pubic rami fractures: Code(s): S32.591A - Other specified fracture of right pubis, initial encounter for closed fracture; S32.592A - Other specified fracture of left pubis, initial encounter for closed fracture Status: Acute Assessment and Plan: * Nonsurgical * Follow-up with orthopedics outpatient * Pain management * PT/OT * Bowel regimen with PO Miralax (5) HTN (hypertension): Code(s): I10 - Essential (primary) hypertension Status: Acute Assessment and Plan: * Continued patient's metoprolol and lisinopril * Monitor BP per unit protocol DS: Summary Hospital Course Reason for hospitalization: Physical deconditioned/rehab post bilateral fracture the distal radius and bilateral pubic rami fractures Hospital Course: Admission: Patient with past medical HX with current treatment for prostate cancer, 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 Patient then came back to the hospital on 07/23 due to inability to bear weight with x-ray showing no acute fracture however MRI was completed which showed a stable superior and inferior nondisplaced pubic rami fracture which explains his left hip groin pain that may not require intervention. Orthopedics recommend weight-bearing as tolerated. Patient was then transferred to [facility] for continued strength and endurance training. Hospital course: Patient admitted to [facility] continue to participate in physical and occupational therapy and progressed as expected was able to order flap board walker which patient was tolerating well. Labs and vitals reviewed patient with no complaints or new concerns at time of discharge except for feeling a little nervous going home. Patient at time of discharge per PT was ambulating with his platform 100 ft he had stair ambulation in splayed no loss of balance during his final session. Patient overall had improved his strength and endurance instability at which time he was cleared to discharge home plans for home health. at bedside updated on his progress. Patient and both acknowledged agreed with discharge plan and patient was discharged home with home health, will have follow-up with Orthopedics as scheduled Status at Discharge Functional status at discharge: uses cane/walker Overall status at discharge: patient is progressing back to baseline Time Spent with Patient Time attestation: Total time spent providing and/or coordinating discharge services: Time spent: Less than 30 minutes Exam Narrative: GENERAL: Pleasant male, in no acute distress and comfortable up in chair HEENT: CANDICE ELLIS. Oropharynx clear. Moist mucous membranes. HEART: Regular rate and rhythm without murmur, rubs, or gallops LUNGS: Clear to auscultation bilaterally. no respiratory distress ABDOMEN: Soft, positive bowel sounds, non-tender, no organomegaly. SKIN: No rash, no excessive bruising, petechiae, or purpura. NEUROLOGIC: Cranial nerves II-XII intact, alert and oriented x 3, no gross motor deficits EXTREMITIES: no edema, cyanosis or clubbing Bilateral forearm with splint Left hip tender anteriorly restricted range of motion Psych: Normal affect Discharge Plan Discharge Attending physician on discharge: Cezar Subramanian Consulting providers: Radha Kumar Discharging Clinician: Radha Kumar Anticipated Discharge Date/Time: 08/12/25 09:31 Patient Disposition: Home Activity: may shower, as tolerated and other - see discharge instructions Diet: regular Discharge Instructions: 1). [facility] home health care to start care on 08/17/25. 2). Fall Risk * Use caution when getting up from a lying or sitting position * Use flat board walker with ambulation * remove trip hazards such as rugs for safety Follow-up with Dr Anthony as scheduled How can you care for yourself at home? ? Keep track of any new symptoms or changes in your symptoms. ? Rest until you feel better. ? Be safe with medicines. Take your medicines exactly as prescribed. Call your doctor if you think you are having a problem with your medicine. ? Do not drive after taking a prescription pain medicine. ? Ensure to follow-up with primary care physician as indicated and provide updated medication list provided to you at discharge. When should you call for help? Call 911 anytime you think you may need emergency care. For example, call if: ? You passed out (lost consciousness). Call your doctor now or seek immediate medical care if: ? You have new symptoms like fever, difficulty breathing, Chest pain, vomiting, or rash. ? You have new or different pain. ? You are confused and are having trouble thinking clearly. ? Your symptoms are getting worse. Watch closely for changes in your health, and be sure to contact your doctor if: ? You do not get better as expected. Patient Instructions: Antibiotic Form, Polyethylene Glycol 3350 (By mouth), Wrist Fracture in Adults (DC), How to Choose and Use a Walker (GEN), Fall Prevention for Older Adults (DC) Patient Language: Trinidadian Stand Alone Forms: General Discharge Information Follow-up/Referrals: Tanner Anthony MD [Physician, Orthopedics] - 08/31/25 2:30 pm Discharge Medications: New polyethylene glycol 3350 [Miralax] 17 gram Powder In Packet 17 g PO QAM PRN (Reason: constipation) Qty: 14 0RF Continued leuprolide 3.75 mg Injectable See Rx Instructions .ROUTE .COMPLEX Rx Instructions: . ergocalciferol (vitamin D2) 1,250 mcg (50,000 unit) capsule 1,250 mcg PO DAILY olanzapine 5 mg tablet 5 mg PO QPM prednisone 10 mg tablet 10 mg PO DAILY hydrocodone-acetaminophen 7.5-325 mg tablet 1 tablet PO Q4-6H PRN (Reason: Pain) Qty: 20 0RF pantoprazole 40 mg tablet,delayed release (DR/EC) 40 mg PO BID lisinopril 20 mg tablet 20 mg PO DAILY metoprolol succinate 25 mg tablet extended release 24 hr 25 mg PO DAILY prochlorperazine maleate [Compazine] 10 mg tablet 10 mg PO BID solifenacin [Vesicare] 5 mg tablet 5 mg PO DAILY loratadine [Allerclear] 10 mg tablet 10 mg PO DAILY Patient Comments: Uses this every morning for a week after chemo treatment. Date of admission: 07/27/25 20:43 Primary Care Provider: Arvind Castellanos Admitting Provider: Cezar Subramanian Attending physician on admission: Cezar Subramanian Condition: Improved Quality VTE Prophylaxis VTE prophylaxis: mechanical ordered -Patient's previous records reviewed on admission -ER notes reviewed in detail on admission -discussed all findings and current treatment plan with patient/Family/POA -Consultations reviewed for recommendations -Patient's disposition for safe discharge discussed with case work aide -radiology imaging, EKG and test results I have personally reviewed and interpreted unless otherwise specified Dictation performed by [employer] direct speech recognition software, therefore housekeeper/custodian/laundry worker variants and typographical errors may occur. Hospitalist MIPS Heart Failure (Exclusion) Patient has history of Heart Transplant or Left Ventricular Assistive Device?: No IF YES, STOP HERE Heart Failure (Qualifier) Patient has current or prior documentation of LVEF less than or equal to 40%, or mod/servere depressed LVSF?: No IF NO, STOP HERE
--- NOTE | 2025-08-12 10:10 | PC.NURSE ---
Patient discharged home at 1005 per private vehicle per , belongings sent with patient
== END 2025-08-12 10:05 | disposition home or self-care (01) | DRG 561 ==
PROVIDERS: Nurse Practitioner Family; Admitting Provider Internal Medicine; PCP Internal Medicine; Visit Provider Internal Medicine
DX: S32.512D Fracture of superior rim of left pubis, subsequent encounter for fracture with routine healing (principal); S52.532D Colles' fracture of left radius, subsequent encounter for closed fracture with routine healing; S52.531D Colles' fracture of right radius, subsequent encounter for closed fracture with routine healing; W19.XXXD Unspecified fall, subsequent encounter; C61 Malignant neoplasm of prostate; R53.81 Other malaise; E55.9 Vitamin D deficiency, unspecified; I10 Essential (primary) hypertension
CPT/HCPCS: 36415; 80053; 83735; 85027; 97110; 97161; 97166; 97530; 97535; A9270; J7512